=== PATIENT | female | born 1960 | race African-American/Black ===

== ENCOUNTER → 2020-10-04 11:06 | Outpatient (BNVA) | payer OTHER, SELFPAY | PROVIDERS: PCP Internal Medicine Medical Oncology; Visit Provider Hospitalist | DX: J45.909 Unspecified asthma, uncomplicated (principal); R06.00 Dyspnea, unspecified; R07.89 Other chest pain; G47.33 Obstructive sleep apnea (adult) (pediatric); Z79.899 Other long term (current) drug therapy; Z86.73 Personal history of transient ischemic attack (TIA), and cerebral infarction without residual deficits; Z99.89 Dependence on other enabling machines and devices | CPT/HCPCS: 99202 ==

== ENCOUNTER 2020-10-20 09:47 | Outpatient (REF) | payer OTHER, SELFPAY ==
--- NOTE | 2020-10-20 11:22 | XR_ITS ---
EXAMINATION: XR CHEST CLINICAL INFORMATION: Asthma COMPARISON: None TECHNIQUE: 2 views of the chest were obtained. FINDINGS: The cardiac silhouette does not appear enlarged. The thoracic aorta is slightly tortuous. Hilar and mediastinal contours are otherwise unremarkable. The lungs are clear. There is no pleural effusion or pneumothorax. There are degenerative changes of the spine. XR/XR chest 2V IMPRESSION: No evidence for acute disease in the chest.
[2020-10-20 11:47] LABS: Hematocrit 36.3 % (37-47); Hemoglobin 11.5 g/dl (12.0-16.0); Mean Corpuscular HGB Conc 31.7 g/dl (31.0-35.0); Mean Corpuscular Hemoglobin 26.4 pg (27.0-33.0); Mean Corpuscular Volume 83.3 fL (80-98); Mean Platelet Volume 10.9 fL (9.4-12.3); Platelet Count 250 X10*3/uL (160-400); Red Blood Count 4.36 X10*6/uL (4.20-5.50); Red Cell Distribution Width 12.3 % (11.0-16.0); White Blood Count 6.3 X10*3/uL (4.8-10.8)
[2020-10-20 11:52] LABS: Prothrombin Time 11.5 SEC (10.8-13.0)
[2020-10-20 12:09] LABS: Anion Gap 13 (12-20); Blood Urea Nitrogen 16 mg/dL (9-16); Calcium 9.8 mg/dL (8.4-10.2); Carbon Dioxide 27 mmol/L (22-29); Chloride 104 mmol/L (96-108); Estimated Glomerular Filt Rate > 60; Glucose Random 104 mg/dL (60-115); Potassium 4.1 mmol/l (3.3-5.1); Sodium 140 mmol/L (135-145)
== END 2020-10-20 09:48 | disposition home or self-care (01) ==
LOC: HO.LAB 09:47
PROVIDERS: PCP Internal Medicine Medical Oncology; Visit Provider Internal Medicine Cardiovascular Disease
DX: R06.00 Dyspnea, unspecified (principal); J45.909 Unspecified asthma, uncomplicated
CPT/HCPCS: 36415; 71046; 80048; 85027; 85610; 93005; 99202

== ENCOUNTER → 2020-10-27 07:34 | Outpatient (REF) | payer OTHER, SELFPAY ==
--- NOTE | 2020-10-27 07:36 | CA_ITS ---
Transthoracic Echocardiogram Patient (Last, First, Middle): Lynnette Mcgill, Gender: Female Date of : 1960 Age: 59 Procedure Date: 10/27/2020 Procedure Type: Transthoracic Echocardiogram Location: OP Height: 165.1 cm Weight: 151.96 kg BSA: 2.46 m2 Heart Rate: bpm BP: 138 / 90 mmHg Director Stage: GLORIA Otto MD: Alcon Villalobos MD Symptoms: R06.00 - Dyspnea, unspecified Study Quality: Fair ECG Rhythm: Sinus Conclusions: - The left ventricular systolic function is normal. The visually estimated ejection fraction is between 60-65%. - Possible diastolic dysfunction. Based on slight diastolic mitral regurgitation, could have increased LA pressure but other data are not supportive. - There is mild calcification of the aortic valve. - There is mild dilatation of the ascending aorta measuring 4.00 cm. Findings Left Ventricle Normal left ventricular cavity size. There is mildly increased left ventricular wall thickness. The left ventricular systolic function is normal. The visually estimated ejection fraction is between 60-65%. There is no evidence of regional wall motion abnormalities. Diastolic function is indeterminate on the basis of available data. Possible diastolic dysfunction. Based on slight diastolic mitral regurgitation, could have increased LA pressure but other data are not supportive. Right Ventricle Normal right ventricular cavity size and systolic function. Atria The left atrium is normal in size. The right atrium is normal in size. Aortic Valve There is a normal trileaflet aortic valve. There is mild calcification of the aortic valve. There is no aortic valve stenosis. There is no aortic valve regurgitation. Mitral Valve The mitral valve appears normal. There is trace mitral valve regurgitation. There is no mitral valve stenosis. Pulmonic Valve The pulmonic valve was not well visualized. Tricuspid Valve Normal tricuspid valve structure. There is trace tricuspid valve regurgitation. The pulmonary artery systolic pressure is normal. Great Vessels The aortic arch is normal in size. There is mild dilatation of the ascending aorta measuring 4.00 cm. Venous The inferior vena cava is normal in size and collapses greater than 50% with inspiration. Pericardium/Pleural There is no evidence of pericardial effusion. Prior Study Comparison No prior study available for comparison. Measurements 2D Linear Measurements IVSd: 1.10 0.6-0.9/0.6-1.0 cm LVIDd: 4.21 3.9-5.3/4.2-5.9 cm LVIDd Index: 1.71 2.4-3.2/2.2-3.1 cm/m2 LVIDs: 2.68 2.0-3.6 cm LVPWd: 1.18 0.7-1.1 cm Ao Root: 3.10 2.1-3.5 cm LA Diam: 3.90 2.7-3.8/3.0-4.0 cm LAIDs Index: 1.59 1.5-2.3 cm/m2 LV Mass: 206.69 67-162/88-224 g LV Mass Index: 84.02 43-95/49-115 g/m2 LVOT Diam: 2.00 3.0+(-)1.3 cm 2D Systolic Function EF 4C: 63.30 >55% EF 2C: 62.30 >55% EF BiP: 63.00 >55% Mitral Valve MV Pk E: 1.08 MV PK A: 0.66 MV Decel Time: 153.00 E/A: 1.60 E'Lateral: 10.00 E'Medial: 8.05 E/E' Med: 13.40 E/E' Lat: 10.80 PHT: 45.00 MVA PHT: 4.89 Decel [place]: 7.07 Aortic Valve AoV Pk Jonas: 1.79 AoV Mn Jonas: 1.24 AoV VTI: 0.42 AoV Pk Grad: 13.00 Aov Mn Grad: 7.00 ROBIN Cont.VTI: 1.98 LVOT LVOT Pk Jonas: 1.10 LVOT Mn Jonas: 0.81 LVOT VTI: 0.27 LVOT Pk Grad: 5.00 LVOT Mn Grad: 3.00 LVOT Diam: 2.00 LVOT Area: 3.14 Diastolic Function MV Pk E: 1.08 MV Pk A: 0.66 E/A: 1.60 E'Medial: 8.05 E/E' Med: 13.40 E' Laterial: 10.00 E/E' Lat: 10.80 Tricuspid Valve TR Pk Jonas: 2.10 TR Pk Grad: 18.00 RA Press: 3.00 RVSP: 21.00 Great Vessels Aorta Ao Root-2D: 3.10 2.0-3.7 cm Ao Asc: 4.00 2.1-3.4 cm Ao Arch: 3.10 Updated in Other Vendor System with Status of Final Hossein Yañez MD electronically signed on 10/27/2020 8:38:42 AM with status of Final
== END ==
LOC: HO.CARD 07:34
PROVIDERS: PCP Internal Medicine Medical Oncology; Visit Provider Internal Medicine Cardiovascular Disease
DX: R06.00 Dyspnea, unspecified (principal)
CPT/HCPCS: 93306

== ENCOUNTER → 2020-11-08 09:45 | Outpatient (BNVA) | payer OTHER, SELFPAY | PROVIDERS: PCP Internal Medicine Medical Oncology; Visit Provider Internal Medicine Cardiovascular Disease | DX: G47.33 Obstructive sleep apnea (adult) (pediatric) (principal); I10 Essential (primary) hypertension; Z99.89 Dependence on other enabling machines and devices; R06.00 Dyspnea, unspecified; R07.89 Other chest pain | CPT/HCPCS: 99212 ==

== ENCOUNTER 2020-11-19 09:47 | Outpatient (REF) | payer OTHER, SELFPAY ==
--- NOTE | 2020-11-19 13:08 | PFT_ITS ---
FLOWS: FEV1 of 97% of predicted at 1.83 L. FVC 96% of predicted at 2.30 L. FEV1 to FVC ratio of 0.80. Positive bronchodilator response. LUNG VOLUMES: Total lung capacity 106% of predicted at 4.71 L. Residual volume 143% of predicted at 2.46 L. Slow vital capacity 70% of predicted at 2.24 L. Expiratory reserve volume 23% of predicted at 0.22 L. Diffusion capacity is normal. IMPRESSION: No obstructive or restrictive ventilatory defect. Positive bronchodilator response. Increased residual volume suggests air trapping. Decreased expiratory reserve volume suggests extrathoracic restriction likely secondary to abdominal obesity. MD SYLVAIN Loya/MODL / [id number]
== END 2020-11-19 09:48 | disposition home or self-care (01) ==
LOC: HO.RESP 09:47
PROVIDERS: Visit Provider Hospitalist
DX: J45.909 Unspecified asthma, uncomplicated (principal); R06.00 Dyspnea, unspecified
CPT/HCPCS: 94060; 94727; 94729; 99212

== ENCOUNTER → 2020-11-22 09:49 | Outpatient (BNVA) | payer OTHER, SELFPAY | PROVIDERS: PCP Internal Medicine Medical Oncology; Visit Provider Nurse Practitioner Family | DX: I10 Essential (primary) hypertension (principal); R07.89 Other chest pain; G47.33 Obstructive sleep apnea (adult) (pediatric); Z99.89 Dependence on other enabling machines and devices; R06.00 Dyspnea, unspecified | CPT/HCPCS: 99212 ==

== ENCOUNTER 2020-12-17 10:27 | Outpatient (REF) | payer OTHER, SELFPAY | END 2020-12-17 10:28 | disposition home or self-care (01) | LOC: HO.LAB 10:27 | PROVIDERS: Visit Provider Internal Medicine | DX: Z20.822 Contact with and (suspected) exposure to COVID-19 (principal) | CPT/HCPCS: 36415; C9803; U0003; U0005 ==

== ENCOUNTER → 2020-12-27 10:23 | Outpatient (BNVA) | payer OTHER, SELFPAY | PROVIDERS: PCP Internal Medicine Medical Oncology; Visit Provider Nurse Practitioner Family | DX: R07.89 Other chest pain (principal); R06.00 Dyspnea, unspecified; I10 Essential (primary) hypertension; G47.33 Obstructive sleep apnea (adult) (pediatric); Z99.89 Dependence on other enabling machines and devices; Z79.899 Other long term (current) drug therapy; Z79.51 Long term (current) use of inhaled steroids; Z87.891 Personal history of nicotine dependence | CPT/HCPCS: 99212 ==

== ENCOUNTER 2020-12-30 09:15 | Outpatient (REF) | payer OTHER, SELFPAY ==
--- NOTE | ~2020-12-30 | US_ITS ---
EXAMINATION: US RETROPERITONEAL LIMITED (RENAL ONLY) CLINICAL INFORMATION: Essential hypertension. COMPARISON: None TECHNIQUE: Routine grayscale and Doppler imaging of kidneys was performed. FINDINGS: RIGHT KIDNEY: 11.4 x 5.1 x 5.2 cm (SAG x AP x TRV). The kidney is normal in size, contour, and echogenicity. Renal cortical thickness is normal. No calculi or focal parenchymal lesions. No hydronephrosis. LEFT KIDNEY: 10.0 x 5.6 x 5.0 cm (SAG x AP x TRV). The kidney is normal in size, contour, and echogenicity. Renal cortical thickness is normal. No calculi or focal parenchymal lesions. No hydronephrosis. RENAL DOPPLER EXAM Right kidney: Peak systolic velocity proximal renal artery measures 108 cm/s, midsegment measures 126 cm/s, distal segment measures 92 cm/s. Average resistive index is 0.6. Renal-aortic ratio measures 1.6. Peak systolic velocity in mid abdominal aorta is 81 cm/s. Left kidney: Peak systolic velocity proximal renal artery measures 94 cm/s, midsegment measures 149 cm/s, distal segment measures 84 cm/s. Average resistive index is 0.63. Renal-aortic ratio measures 1.8. US/US renal BI IMPRESSION: Normal renal ultrasound. No echogenic stones or hydronephrosis. Normal renal Doppler exam. No evidence of renal artery stenosis.
--- NOTE | ~2020-12-30 | US_ITS ---
EXAMINATION: US RETROPERITONEAL LIMITED (RENAL ONLY) CLINICAL INFORMATION: Essential hypertension. COMPARISON: None TECHNIQUE: Routine grayscale and Doppler imaging of kidneys was performed. FINDINGS: RIGHT KIDNEY: 11.4 x 5.1 x 5.2 cm (SAG x AP x TRV). The kidney is normal in size, contour, and echogenicity. Renal cortical thickness is normal. No calculi or focal parenchymal lesions. No hydronephrosis. LEFT KIDNEY: 10.0 x 5.6 x 5.0 cm (SAG x AP x TRV). The kidney is normal in size, contour, and echogenicity. Renal cortical thickness is normal. No calculi or focal parenchymal lesions. No hydronephrosis. RENAL DOPPLER EXAM Right kidney: Peak systolic velocity proximal renal artery measures 108 cm/s, midsegment measures 126 cm/s, distal segment measures 92 cm/s. Average resistive index is 0.6. Renal-aortic ratio measures 1.6. Peak systolic velocity in mid abdominal aorta is 81 cm/s. Left kidney: Peak systolic velocity proximal renal artery measures 94 cm/s, midsegment measures 149 cm/s, distal segment measures 84 cm/s. Average resistive index is 0.63. Renal-aortic ratio measures 1.8. US/US renal doppler IMPRESSION: Normal renal ultrasound. No echogenic stones or hydronephrosis. Normal renal Doppler exam. No evidence of renal artery stenosis.
== END 2020-12-30 09:16 | disposition home or self-care (01) ==
LOC: HO.US 09:15
PROVIDERS: PCP Internal Medicine Medical Oncology; Visit Provider Nurse Practitioner Family
DX: I10 Essential (primary) hypertension (principal)
CPT/HCPCS: 76775; 93975

== ENCOUNTER 2021-01-14 10:56 | Outpatient (REF) | payer OTHER, SELFPAY ==
--- NOTE | ~2021-01-14 | XR_ITS ---
EXAMINATION: XR CHEST CLINICAL INFORMATION: Dyspnea COMPARISON: 10/20/2020 TECHNIQUE: 2 views of the chest were obtained. FINDINGS: The lungs are well expanded. There is no focal consolidation, edema, or effusion. No pneumothorax. The cardiomediastinal silhouette is within normal limits of size with a tortuous aorta. No acute osseous abnormality. XR/XR chest 2V IMPRESSION: Clear lungs.
--- NOTE | ~2021-01-14 | XR_ITS ---
EXAMINATION: XR HIP, LEFT CLINICAL INFORMATION: Left hip pain COMPARISON: None TECHNIQUE: Two views of the left hip. FINDINGS: No fracture or dislocation. The left femoral head articulates appropriately with its acetabulum. Mild joint space narrowing. The visualized left hemipelvis is intact. The bowel gas pattern is unremarkable. XR/XR hip LT min 2V IMPRESSION: Mild degenerative change of the left hip.
== END 2021-01-14 10:57 | disposition home or self-care (01) ==
LOC: HO.XRAY 10:56
PROVIDERS: Absent Provider Internal Medicine Medical Oncology; PCP Internal Medicine Medical Oncology; Visit Provider Hospitalist
DX: M25.552 Pain in left hip (principal); R06.00 Dyspnea, unspecified
CPT/HCPCS: 71046; 73502

== ENCOUNTER 2021-01-20 11:18 | Outpatient (REF) | payer OTHER, SELFPAY ==
--- NOTE | ~2021-01-20 | XR_ITS ---
Examination: XR shoulder RT min 2V, XR lumbar spine 2-3V, XR hip LT min 2V, XR shoulder LT min 2V Indication: PAIN Comparison: 01/14/2021 left hip films Technique: 4 views the right shoulder, 4 views the left shoulder, 2 views of the left hip and 3 views of the lumbar spine Findings: Right shoulder: Humeral head is well-seated within the glenoid fossa. I do not appreciate any acute fracture or dislocation. Mild hypertrophic degenerative changes in the acromioclavicular joint. Visualized right chest unremarkable. Left shoulder humeral head is well-seated in the glenoid fossa. Bones are normal anatomic alignment with no acute fracture or dislocation minimal degenerative changes in the acromioclavicular joint. Visualized left upper chest unremarkable. Left hip: Femoral head is well-seated within the acetabulum. Bones are normal anatomic alignment. I do not appreciate any acute fracture or dislocation. Minimal degenerative changes again seen. Visualized pelvic bones unremarkable. Bowel gas pattern unremarkable. Lumbosacral spine: Bones are in normal anatomic alignment with no acute fracture or spondylolisthesis. Vertebral body heights and disc heights are preserved. Mild multilevel degenerative changes with anterior osteophyte formation noted. Sclerotic degenerative changes in the posterior elements of the lower lumbar spine. Bowel gas pattern unremarkable. XR/XR hip LT min 2V Impression: Degenerative changes but no acute bony abnormalities.
--- NOTE | ~2021-01-20 | XR_ITS ---
Examination: XR shoulder RT min 2V, XR lumbar spine 2-3V, XR hip LT min 2V, XR shoulder LT min 2V Indication: PAIN Comparison: 01/14/2021 left hip films Technique: 4 views the right shoulder, 4 views the left shoulder, 2 views of the left hip and 3 views of the lumbar spine Findings: Right shoulder: Humeral head is well-seated within the glenoid fossa. I do not appreciate any acute fracture or dislocation. Mild hypertrophic degenerative changes in the acromioclavicular joint. Visualized right chest unremarkable. Left shoulder humeral head is well-seated in the glenoid fossa. Bones are normal anatomic alignment with no acute fracture or dislocation minimal degenerative changes in the acromioclavicular joint. Visualized left upper chest unremarkable. Left hip: Femoral head is well-seated within the acetabulum. Bones are normal anatomic alignment. I do not appreciate any acute fracture or dislocation. Minimal degenerative changes again seen. Visualized pelvic bones unremarkable. Bowel gas pattern unremarkable. Lumbosacral spine: Bones are in normal anatomic alignment with no acute fracture or spondylolisthesis. Vertebral body heights and disc heights are preserved. Mild multilevel degenerative changes with anterior osteophyte formation noted. Sclerotic degenerative changes in the posterior elements of the lower lumbar spine. Bowel gas pattern unremarkable. XR/XR lumbar spine 2-3V Impression: Degenerative changes but no acute bony abnormalities.
--- NOTE | ~2021-01-20 | XR_ITS ---
Examination: XR shoulder RT min 2V, XR lumbar spine 2-3V, XR hip LT min 2V, XR shoulder LT min 2V Indication: PAIN Comparison: 01/14/2021 left hip films Technique: 4 views the right shoulder, 4 views the left shoulder, 2 views of the left hip and 3 views of the lumbar spine Findings: Right shoulder: Humeral head is well-seated within the glenoid fossa. I do not appreciate any acute fracture or dislocation. Mild hypertrophic degenerative changes in the acromioclavicular joint. Visualized right chest unremarkable. Left shoulder humeral head is well-seated in the glenoid fossa. Bones are normal anatomic alignment with no acute fracture or dislocation minimal degenerative changes in the acromioclavicular joint. Visualized left upper chest unremarkable. Left hip: Femoral head is well-seated within the acetabulum. Bones are normal anatomic alignment. I do not appreciate any acute fracture or dislocation. Minimal degenerative changes again seen. Visualized pelvic bones unremarkable. Bowel gas pattern unremarkable. Lumbosacral spine: Bones are in normal anatomic alignment with no acute fracture or spondylolisthesis. Vertebral body heights and disc heights are preserved. Mild multilevel degenerative changes with anterior osteophyte formation noted. Sclerotic degenerative changes in the posterior elements of the lower lumbar spine. Bowel gas pattern unremarkable. XR/XR shoulder LT min 2V Impression: Degenerative changes but no acute bony abnormalities.
--- NOTE | ~2021-01-20 | XR_ITS ---
Examination: XR shoulder RT min 2V, XR lumbar spine 2-3V, XR hip LT min 2V, XR shoulder LT min 2V Indication: PAIN Comparison: 01/14/2021 left hip films Technique: 4 views the right shoulder, 4 views the left shoulder, 2 views of the left hip and 3 views of the lumbar spine Findings: Right shoulder: Humeral head is well-seated within the glenoid fossa. I do not appreciate any acute fracture or dislocation. Mild hypertrophic degenerative changes in the acromioclavicular joint. Visualized right chest unremarkable. Left shoulder humeral head is well-seated in the glenoid fossa. Bones are normal anatomic alignment with no acute fracture or dislocation minimal degenerative changes in the acromioclavicular joint. Visualized left upper chest unremarkable. Left hip: Femoral head is well-seated within the acetabulum. Bones are normal anatomic alignment. I do not appreciate any acute fracture or dislocation. Minimal degenerative changes again seen. Visualized pelvic bones unremarkable. Bowel gas pattern unremarkable. Lumbosacral spine: Bones are in normal anatomic alignment with no acute fracture or spondylolisthesis. Vertebral body heights and disc heights are preserved. Mild multilevel degenerative changes with anterior osteophyte formation noted. Sclerotic degenerative changes in the posterior elements of the lower lumbar spine. Bowel gas pattern unremarkable. XR/XR shoulder RT min 2V Impression: Degenerative changes but no acute bony abnormalities.
== END 2021-01-20 11:19 | disposition home or self-care (01) ==
LOC: HO.XRAY 11:18
PROVIDERS: PCP Internal Medicine Medical Oncology; Visit Provider Internal Medicine Medical Oncology
DX: M25.552 Pain in left hip (principal); M25.551 Pain in right hip; M25.511 Pain in right shoulder; M25.512 Pain in left shoulder
CPT/HCPCS: 72100; 73030; 73502

== ENCOUNTER → 2021-02-21 13:34 | Outpatient (BNVA) | payer OTHER, SELFPAY | PROVIDERS: PCP Internal Medicine Medical Oncology; Visit Provider Hospitalist | DX: G47.33 Obstructive sleep apnea (adult) (pediatric) (principal); J45.40 Moderate persistent asthma, uncomplicated; B94.8 Sequelae of other specified infectious and parasitic diseases; Z99.89 Dependence on other enabling machines and devices | CPT/HCPCS: 99212 ==

== ENCOUNTER 2021-03-14 09:39 | Outpatient (REF) | payer OTHER, SELFPAY ==
--- NOTE | 2021-03-14 17:44 | PFT_ITS ---
INDICATIONS: Dyspnea, history of asthma. SPIROMETRY: The FEV1 to FVC of 81% with an FEV1 of 2.03 L, which is 108% predicted, and an FVC of 2.49 L, which is 104% predicted. There was a significant response to bronchodilators noted. Maximum voluntary ventilation 81% predicted. LUNG VOLUMES: Total lung capacity 94% predicted with an expiratory reserve volume of 16% predicted secondary to an elevated BMI. DIFFUSION CAPACITY: DLCO predicted. COMPARISONS: From November 2020. INTERPRETATION: No obstructive nor restrictive ventilatory defects identified. There was a significant response to bronchodilators noted. Normal maximum voluntary ventilation. Lung volumes within normal limits except for decrease in the expiratory reserve volume secondary to an elevated BMI. Diffusion capacity is low normal. When compared to 11/20/2020, there is a significant improvement of the FVC, significant improvement of the FEV1, trend decrease in the total lung capacity, and no significant change in the diffusion capacity. Clinical correlation warranted. MD RADHA Mendoza/MODL / [id number]
== END 2021-03-14 09:40 | disposition home or self-care (01) ==
LOC: HO.RESP 09:39
PROVIDERS: PCP Internal Medicine Medical Oncology; Visit Provider Hospitalist
DX: B94.8 Sequelae of other specified infectious and parasitic diseases (principal)
CPT/HCPCS: 94060; 94727; 94729

== ENCOUNTER → 2021-03-29 10:19 | Outpatient (BNVA) | payer OTHER, SELFPAY | PROVIDERS: PCP Internal Medicine Medical Oncology; Visit Provider Hospitalist | DX: J04.0 Acute laryngitis (principal); J45.40 Moderate persistent asthma, uncomplicated; G47.33 Obstructive sleep apnea (adult) (pediatric); R06.00 Dyspnea, unspecified; Z99.89 Dependence on other enabling machines and devices | CPT/HCPCS: 99212 ==

== ENCOUNTER → 2021-04-18 13:04 | Outpatient (BNVA) | payer OTHER, SELFPAY | PROVIDERS: PCP Internal Medicine Medical Oncology; Referring Provider Internal Medicine Medical Oncology; Visit Provider Internal Medicine Cardiovascular Disease | DX: I10 Essential (primary) hypertension (principal); R06.00 Dyspnea, unspecified | CPT/HCPCS: 99212 ==

== ENCOUNTER → 2021-04-26 09:27 | Outpatient (BNVA) | payer OTHER, SELFPAY | PROVIDERS: PCP Internal Medicine Medical Oncology; Visit Provider Nurse Practitioner Family | DX: M54.16 Radiculopathy, lumbar region (principal); M47.22 Other spondylosis with radiculopathy, cervical region; B94.8 Sequelae of other specified infectious and parasitic diseases | CPT/HCPCS: 99212 ==

== ENCOUNTER → 2021-06-01 08:58 | Outpatient (BNVA) | payer OTHER, SELFPAY | PROVIDERS: PCP Internal Medicine Medical Oncology; Visit Provider Nurse Practitioner Family | DX: M54.16 Radiculopathy, lumbar region (principal); M47.22 Other spondylosis with radiculopathy, cervical region; B94.8 Sequelae of other specified infectious and parasitic diseases | CPT/HCPCS: 99212 ==

== ENCOUNTER → 2021-06-02 09:43 | Outpatient (BNVA) | payer OTHER, SELFPAY | PROVIDERS: PCP Internal Medicine Medical Oncology; Visit Provider Internal Medicine Cardiovascular Disease | DX: Z01.810 Encounter for preprocedural cardiovascular examination (principal); I10 Essential (primary) hypertension | CPT/HCPCS: 93005; 99212 ==

== ENCOUNTER 2021-07-19 06:39 | Outpatient (REF) | payer OTHER, SELFPAY ==
--- NOTE | ~2021-07-19 | FL_ITS ---
EXAMINATION: XR FLUOROSCOPY WITH IMAGES CLINICAL INFORMATION: M54.16 - Radiculopathy, lumbar region COMPARISON: Radiographs lumbar spine 01/20/2021 TECHNIQUE: Fluoroscopy performed by Dr. Joe Christianson. Fluoroscopy time: 0.8 minutes DAP: 19.2 Gycm2 Images: 2 FINDINGS: There are spinal needles overlying the bilateral outer L5 neural foramen. There is contrast seen in the respective nerve sheaths. Some early transforaminal epidural extension is suggested. No visible vascular communication. FL/FL guidance in treatment room IMPRESSION: Fluoroscopy for pain management procedures.
== END 2021-07-19 06:40 | disposition home or self-care (01) ==
LOC: HO.RADIR 06:39
PROVIDERS: Visit Provider Anesthesiology
DX: M47.22 Other spondylosis with radiculopathy, cervical region (principal); B94.8 Sequelae of other specified infectious and parasitic diseases
CPT/HCPCS: 64483; 64493; J3300; Q9967

== ENCOUNTER → 2021-08-03 10:38 | Outpatient (BNVA) | payer OTHER, SELFPAY | PROVIDERS: PCP Internal Medicine Medical Oncology; Visit Provider Hospitalist | DX: G47.33 Obstructive sleep apnea (adult) (pediatric) (principal); J45.40 Moderate persistent asthma, uncomplicated; R06.00 Dyspnea, unspecified; Z99.89 Dependence on other enabling machines and devices | CPT/HCPCS: 99212 ==

== ENCOUNTER → 2021-08-16 08:51 | Outpatient (BNVA) | payer OTHER, SELFPAY | PROVIDERS: PCP Internal Medicine Medical Oncology; Visit Provider Nurse Practitioner Family | DX: M54.16 Radiculopathy, lumbar region (principal); M47.22 Other spondylosis with radiculopathy, cervical region; M47.816 Spondylosis without myelopathy or radiculopathy, lumbar region; B94.8 Sequelae of other specified infectious and parasitic diseases | CPT/HCPCS: 99212 ==

== ENCOUNTER → 2021-10-24 13:22 | Outpatient (BNVA) | payer OTHER, SELFPAY | PROVIDERS: PCP Internal Medicine Medical Oncology; Visit Provider Internal Medicine Cardiovascular Disease | DX: I10 Essential (primary) hypertension (principal) | CPT/HCPCS: 99212 ==

== ENCOUNTER → 2022-01-02 09:28 | Outpatient (BNVA) | payer OTHER, SELFPAY | PROVIDERS: PCP Internal Medicine Medical Oncology; Visit Provider Internal Medicine | DX: M47.816 Spondylosis without myelopathy or radiculopathy, lumbar region (principal); M54.16 Radiculopathy, lumbar region | CPT/HCPCS: 99212 ==

== ENCOUNTER → 2022-01-23 15:01 | Outpatient (BNVA) | payer OTHER, SELFPAY | PROVIDERS: PCP Internal Medicine Medical Oncology; Referring Provider Internal Medicine Medical Oncology; Visit Provider Internal Medicine Cardiovascular Disease | DX: I10 Essential (primary) hypertension (principal); Z98.84 Bariatric surgery status | CPT/HCPCS: 99212 ==

== ENCOUNTER → 2022-01-31 09:44 | Outpatient (BNVA) | payer OTHER, SELFPAY | PROVIDERS: PCP Internal Medicine Medical Oncology; Visit Provider Hospitalist | DX: J45.40 Moderate persistent asthma, uncomplicated (principal); G47.33 Obstructive sleep apnea (adult) (pediatric); R06.00 Dyspnea, unspecified; Z99.89 Dependence on other enabling machines and devices | CPT/HCPCS: 99212 ==

== ENCOUNTER → 2022-05-29 10:15 | Outpatient (BNVA) | payer OTHER, SELFPAY | PROVIDERS: PCP Internal Medicine Medical Oncology; Referring Provider Internal Medicine Medical Oncology; Visit Provider Internal Medicine Cardiovascular Disease | DX: G45.9 Transient cerebral ischemic attack, unspecified (principal); I10 Essential (primary) hypertension | CPT/HCPCS: 93005; 99212 ==

== ENCOUNTER 2022-05-31 09:31 | Outpatient (REF) | payer OTHER, SELFPAY ==
--- NOTE | ~2022-05-31 | US_ITS ---
EXAMINATION: US EXTRACRANIAL CAROTID DUPLEX, BILATERAL CLINICAL INFORMATION: This is a 61-year-old female with history of TIA. CVA. Previous tobacco use. Hypertension. Carotid artery disease. COMPARISON: None TECHNIQUE: Real-time ultrasound and Doppler techniques (integrating B-mode 2-D vascular images, Doppler spectral analysis and color-flow Doppler imaging) were utilized to interrogate the extracranial carotid arteries, the vertebral arteries and proximal subclavian arteries bilaterally. The degree of stenosis is determined by criteria similar to NASCET. FINDINGS: Right Side: 1. There is minimal atherosclerotic plaque seen in the bifurcation/proximal ICA region. 2. The common carotid artery PSV proximally is 61 cm/s and distally 49 cm/s. 3. The proximal internal carotid artery velocities are 86 cm/s systolic and 37 cm/s diastolic. 4. The proximal external carotid artery PSV is 44 cm/s. 5. The vertebral artery shows antegrade flow. 6. The subclavian artery waveforms are normal. Left Side: 1. There is minimal atherosclerotic plaque seen in the bifurcation/proximal ICA region. 2. The common carotid artery PSV proximally is 84 cm/s and distally 56 cm/s. 3. The proximal internal carotid artery velocities are 63 cm/s systolic and 20 cm/s diastolic. 4. The proximal external carotid artery PSV is 54 cm/s. 5. The vertebral artery shows antegrade flow. 6. The subclavian artery waveforms are normal. US/US carotid duplex BI IMPRESSION: 1. RIGHT: Minimal, non-hemodynamically significant stenosis of the proximal right internal carotid artery corresponding to a 0-49% stenosis by velocity criteria. 2. LEFT: Minimal, non-hemodynamically significant stenosis of the proximal left internal carotid artery corresponding to a 0-49% stenosis by velocity criteria.
== END 2022-05-31 09:32 | disposition home or self-care (01) ==
LOC: HO.US 09:31
PROVIDERS: Visit Provider Internal Medicine Cardiovascular Disease
DX: Z86.73 Personal history of transient ischemic attack (TIA), and cerebral infarction without residual deficits (principal)
CPT/HCPCS: 93880

== ENCOUNTER → 2022-10-19 10:40 | Outpatient (BNVA) | payer OTHER, SELFPAY | PROVIDERS: PCP Internal Medicine Medical Oncology; Referring Provider Internal Medicine Medical Oncology; Visit Provider Internal Medicine Cardiovascular Disease | DX: G45.9 Transient cerebral ischemic attack, unspecified (principal); M75.00 Adhesive capsulitis of unspecified shoulder; I10 Essential (primary) hypertension | CPT/HCPCS: 99212 ==

== ENCOUNTER → 2022-11-17 09:59 | Outpatient (BNVA) | payer OTHER, SELFPAY | PROVIDERS: PCP Internal Medicine Medical Oncology; Visit Provider Hospitalist | DX: J45.40 Moderate persistent asthma, uncomplicated (principal); J01.90 Acute sinusitis, unspecified; G47.33 Obstructive sleep apnea (adult) (pediatric); Z99.89 Dependence on other enabling machines and devices | CPT/HCPCS: 99212 ==

== ENCOUNTER 2023-04-23 10:32 | Outpatient (AMB) | payer MEDICAID, SELFPAY ==
[2023-04-23 10:51] VITALS: BP 146/98; PULSE 61; BMI 46.2
--- NOTE | 2023-04-23 10:51 | MHC.OFFVIS ---
Intake Vital Signs 04/23/23 10:51 Height 5 ft 5 in Weight 277 lb 12.519 oz BMI 46.2 BP 146/98 H Blood Pressure Location Lt brachial Position Sitting Pulse 61 Intake Visit Reasons: 6M follow up Intake Note: 6 month follow up Fiscal Technician Required: No Accompanied by: Self / Same As Patient Allergies No Known Allergies Allergy (Verified 04/23/23 10:53) Medication List - Last Reconciled 04/23/23 by Alcon Villalobos MD albuterol sulfate 2.5 mg (3 mL) inhalation Q4H PRN 30 days amlodipine 10 mg PO DAILY aspirin (Adult Aspirin Regimen) 81 mg PO DAILY azelastine 2 sprays intranasal BID 30 days azithromycin 500 mg PO DAILY 5 days bupropion HCl 300 mg PO DAILY cholecalciferol (vitamin D3) 50 mcg PO DAILY clopidogrel 75 mg PO DAILY escitalopram oxalate 20 mg PO DAILY fluticasone furoate-vilanterol 200-25 mcg/dose (Breo Ellipta) 1 inh inhalation DAILY 30 days fluticasone furoate-vilanterol 200-25 mcg/dose (Breo Ellipta) 1 inh inhalation DAILY 30 days fluticasone propionate 50 mcg/actuation 2 sprays intranasal DAILY 30 days hydralazine 50 mg PO QID hydroxyzine HCl 50 mg PO TID lisinopril 40 mg PO DAILY loratadine 10 mg PO DAILY 30 days meloxicam 15 mg PO DAILY metoprolol tartrate 50 mg PO BID montelukast 10 mg PO DAILY 30 days nebulizers As directed omeprazole magnesium 20 mg PO DAILY oxymetazoline 0.05% (Afrin Sinus (oxymetazoline)) 2 sprays intranasal Q12H PRN 5 days potassium chloride ER 10 mEq PO DAILY prednisone PO daily; Take 2 tabs x 5 days, then 1 tab x 5 days 10 days pregabalin 50 mg PO BID simvastatin 40 mg PO BEDTIME trazodone 100 - 200 mg PO BEDTIME PRN umeclidinium 62.5 mcg/actuation (Incruse Ellipta) 1 inh inhalation DAILY 30 days umeclidinium 62.5 mcg/actuation (Incruse Ellipta) 1 inh inhalation DAILY 30 days HPI HPI Comments History of Present Illness Details 62-year-old female here for follow-up. She was seen for hypertension previously and her blood pressure has improved on the current medication regimen. She also had exertional chest discomfort for which she underwent cardiac catheterization which did not show any significant coronary artery disease. She has morbid obesity and underwent bariatric surgery. She has lost approximately 90+ lb at this point. She is here for follow-up. She is denying any chest discomfort shortness of breath. Her main complaint is left shoulder pain. 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 She is saying she underwent physiotherapy but there has not been any significant improvement in the shoulder. Blood pressure control is good. Taking medications regularly. 04/23/23: Today she returns for follow-up. She is status post bariatric surgery and continues to lose weight. She has no chest discomfort shortness of breath. She is saying her asthma is under control. She has been experiencing some episodes of dizziness which she describes as lightheadedness. These episodes happen when she is standing or sitting for long time. She feels hot and flushed and starts feeling lightheaded. She is saying she drinks lot of water and tries to hydrate herself. She has never had vasovagal syncope or fainting episodes before. 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 Surgical History History of gastric bypass History of hysterectomy History of left knee surgery Family History Mother Breast cancer HTN (hypertension) Father Kidney disease HTN (hypertension) Maternal Uncle Diabetes Son Diabetes Social History Alcohol intake: never Patient Tobacco Use Status: Never used Tobacco Review of Systems Const Denies weakness ENT Denies dizziness Card Denies chest pain, Denies chest pain with activity, Denies syncope, Denies rapid heart rate, Denies pedal edema, Denies edema, Denies leg edema, Denies lightheadedness, Denies palpitations, Denies dyspnea, Denies dyspnea on exertion and Denies orthopnea Resp Denies cough, Denies dyspnea and Denies dyspnea on exertion GI Denies hematochezia and Denies change in stool character Musc Denies abnormal gait, Denies muscle cramps, Denies muscle weakness, Denies numbness, Denies radiating pain into limb and Denies tingling Neuro Denies abnormal gait, Denies dizziness, Denies syncope, Denies numbness, Denies tingling and Denies weakness Endo Denies palpitations Physical Exam Vital Signs: Last Vital Signs Pulse 61 04/23/23 10:51 BP 146/98 H 04/23/23 10:51 BMI result Body Mass Index 46.2 GENERAL APPEARANCE: in no acute distress, obese. NECK/THYROID: no carotid bruit, no jugular venous distention. SKIN: no suspicious lesions, warm and dry. HEART: no murmurs, regular rate and rhythm, S1, S2 normal. LUNGS: clear to auscultation bilaterally. ABDOMEN: normal, bowel sounds present, soft, nontender, nondistended. EXTREMITIES: no clubbing, cyanosis. PERIPHERAL PULSES: equal. NEUROLOGIC: alert and oriented. Office Procedures EKG Details: Sinus rhythm 61 beats per minute, normal axis, QTC 432 milliseconds. [id number], Complete Assessment & Plan Assessment & Plan (1) Hypertension: Code(s): I10 - Essential (primary) hypertension (2) Dizziness: Code(s): R42 - Dizziness and giddiness Plan Pleasant 62-year-old female who is here for follow-up. She has background history of morbid obesity underwent bariatric surgery. She has background of TIA and has been on aspirin and Plavix. She also has elevated blood pressures previously. Blood pressure is again elevated but she is complaining of dizziness and lightheadedness episodes associated with feeling hot and flushed. Clinical symptoms appear to be related to vasovagal events. I have advised her to drink Gatorade/Powerade 2 times a week. She will continue to hydrate herself. I am reluctant to increase the blood pressure medications currently. We will see her back and reassess her and titrate medications accordingly. She is saying she is still losing weight and hopefully with further weight loss blood pressure will improve further. She will see us back in few months. Thank you for allowing me to participate in the care of your patient. Please feel free to contact me if you have any questions. Coding Level of Care Code Est Pt Level 4 (90755) Diagnoses Hypertension I10 Dizziness R42 CPT Codes EKG - CPT: [id number], Complete ([id number])
== END 2023-04-23 11:16 | disposition home or self-care (01) ==
PROVIDERS: Visit Provider Internal Medicine Cardiovascular Disease
DX: I10 Essential (primary) hypertension (principal); R42 Dizziness and giddiness
CPT/HCPCS: 93010; 99214

== ENCOUNTER → 2023-04-23 10:32 | Outpatient (BNVA) | payer MEDICAID, SELFPAY | PROVIDERS: Visit Provider Internal Medicine Cardiovascular Disease | DX: I10 Essential (primary) hypertension (principal); R42 Dizziness and giddiness | CPT/HCPCS: 93005; 99212 ==

== ENCOUNTER 2023-06-22 09:38 | Outpatient (REF) | payer OTHER, SELFPAY ==
--- NOTE | ~2023-06-22 | XR_ITS ---
EXAMINATION: XR HIP, RIGHT CLINICAL INFORMATION: Pain COMPARISON: Hip radiographs 01/20/2021 TECHNIQUE: Two views of the right hip. One view of the pelvis. FINDINGS: No acute fracture or dislocation. Mild degenerative changes of the hips with subchondral sclerosis and cystic change. Degenerative disc disease in the visualized lower lumbosacral spine. Sacroiliac joint spaces are maintained. Calcified phleboliths in the pelvis. XR/XR hip RT w PEL1V IMPRESSION: 1. Mild degenerative changes of the hips. 2. Degenerative disc disease in the visualized lower lumbosacral spine.
== END 2023-06-22 09:39 | disposition home or self-care (01) ==
LOC: HO.XRAY 09:38
PROVIDERS: PCP Internal Medicine Medical Oncology; Visit Provider Physician Assistant
DX: M25.551 Pain in right hip (principal)
CPT/HCPCS: 73502

== ENCOUNTER 2023-07-13 08:49 | Outpatient (AMB) | payer OTHER, SELFPAY ==
--- NOTE | 2023-07-13 09:02 | A.OFFVIS_ITS ---
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 Recently she developed left-sided weakness and numbness and she was evaluated at [facility]. She was so she had a small CVA. She is now trying to control her blood pressure and also lose weight. In the meantime she does complaint of dyspnea on exertion also with chest heaviness. [id number] severity. It does take her between 3-5 minutes to recover from her ambulation. She has been using Breo for asthma with good effect. She also has a rescue inhaler that she uses at times but less than twice a week. In addition to that she does use her CPAP every night. CPAP therapy continues to be affecting beneficial. She feels the pressures are too long rather have the elevations in the pressures. I did request axis from her [email or web address] to get access in order to adjust the machine online. In the office we did have her go for 6 minutes walk test. She did not desaturate heart rate went up to 102. During the ambulation she did complaint of chest heaviness and therefore had to stop. Her symptoms resolved after stopping. I did inform her that I did think cardiology consultation be warranted at this time specially with her recent CVA in her increase cardiovascular risk factors. Were also optimize respiratory therapy and also try to optimize her PAP therapy. 07/13/2023 the patient is here for pulnathaniel hernandez follow-up visit. Overall she is doing well. She is losing weight and she is motivated. In addition to that she has gotten relief from her Breo inhaler. She has not require her short-acting beta agonist. We did review her pulmonary function studies demonstrating normal lung capacity and normal lung mechanics. Does have a component of small airways disease which is likely from the asthma. Regards to the CPAP the CPAP therapy continues to be affecting beneficial. She continues using more than 4 hours a night. Her major complaint is chronic cough and some constant clearing of the throat which she feels that she has fullness in secretions. Explained to her that is likely from an upper airway cough syndrome in nasal congestion. We will optimize her nasal therapy. If however the patient has no improvement then an ENT evaluation. [facility] Medical History (Updated 07/13/23 @ 09:22 by Josh Lee MD) Chronic allergic rhinitis Laryngitis [id number] syndrome CVA (cerebral vascular accident) DEIM on CPAP Dyspnea Chest pressure Asthma Surgical History History of gastric bypass History of left knee surgery History of hysterectomy Family History Mother Breast cancer HTN (hypertension) Father Kidney disease HTN (hypertension) Maternal Uncle Diabetes Son Diabetes Social History Alcohol intake: never Patient Tobacco Use Status: Never used Tobacco Review of Systems Const Reports fatigue, Denies fever(s), Denies night sweats and Reports weight loss ENT Denies change in voice, Denies lip swelling, Denies mouth pain, Reports nasal congestion, Reports nasal discharge, Reports nasal obstruction, Reports sinus pain, Reports sinus pressure and Denies tongue swelling Card Denies chest pain and Reports dyspnea on exertion Resp Reports cough and Reports dyspnea on exertion GI Denies abdominal pain Musc Denies no additional complaints Neuro Denies Neuro-related abnormal movements Psych Denies no additional complaints Endo Reports fatigue Dillon/Lymph Denies easy bleeding and Denies lymphadenopathy Aller/Immun Denies lip swelling and Denies tongue swelling Physical Exam Vital Signs: Last Vital Signs Pulse 82 07/13/23 09:04 Pulse Ox 99 07/13/23 09:04 Oxygen Delivery Method Room Air 07/13/23 09:04 BMI result Body Mass Index 47.3 Const General: alert Neck Neck: Yes normal visual inspection, Yes full ROM and Yes no lymphadenopathy Chest Chest palpation & inspection: normal inspection of the chest Resp Auscultation: diminished lung sounds Cardio Rate: regular rate Rhythm: regular rhythm Heart sounds: S1 normal heart sound present and S2 normal heart sound present GI Palpation (GI): Soft to palpation and nontender Auscultation: normal bowel sounds Skin General skin exam: rashes and/or lesions noted Assessment & Plan Assessment & Plan (1) DEMI on CPAP: Code(s): G47.33 - Obstructive sleep apnea (adult) (pediatric); Z99.89 - Dependence on other enabling machines and devices (2) Asthma: Code(s): J45.909 - Unspecified asthma, uncomplicated Qualifiers: Asthma complication type: uncomplicated Asthma persistence: persistent Asthma severity: moderate Qualified Code(s): J45.40 - Moderate persistent asthma, uncomplicated (3) Dyspnea: Code(s): R06.00 - Dyspnea, unspecified Qualifiers: Dyspnea type: dyspnea on exertion Qualified Code(s): R06.00 - Dyspnea, unspecified (4) Sinusitis: Code(s): J32.9 - Chronic sinusitis, unspecified Qualifiers: Chronicity: subacute Sinusitis location: unspecified location Qualified Code(s): J01.90 - Acute sinusitis, unspecified (5) Chronic allergic rhinitis: Code(s): J30.9 - Allergic rhinitis, unspecified Plan continue Breo Continue Incruse OWEN as needed hold fluticasone 2 sprays each nostril daily start budesonide x 2-4 weeks neti bottle daily continue Astelin nasal spray continue singulair continue Claritin start ZPACK start prednisone ENT referral continue CPAP therapy, adjusted nebulizer follow-up in 6 months Orders: Referrals Ear/Nose/Throat Referral J30.9 - Allergic rhinitis, unspecified Medications: New budesonide 0.5 mg (2 mL) inhalation DAILY 30 days 60 mL 11RF J44.9 - Chronic obstructive pulmonary disease, unspecified prednisone PO daily; Take 2 tabs daily x 5 days, then 1 tablet daily x 5 days 10 days 15 tabs 0RF azithromycin 500 mg PO DAILY 5 days 5 tabs 0RF Coding Level of Care Code Est Pt Level 4 (63198) Diagnoses DEMI on CPAP G47.33; Z99.89 Moderate persistent asthma without complication J45.40 Asthma complication type: uncomplicated Asthma persistence: persistent Asthma severity: moderate Dyspnea on exertion R06.00 Dyspnea type: dyspnea on exertion Subacute sinusitis, unspecified location J01.90 Chronicity: subacute Sinusitis location: unspecified location Chronic allergic rhinitis J30.9 Time Spent (min) 17
[2023-07-13 09:04] VITALS: PULSE 82; O2SAT 99; BMI 47.3
== END 2023-07-13 09:35 | disposition home or self-care (01) ==
PROVIDERS: PCP Internal Medicine Medical Oncology; Visit Provider Hospitalist
DX: G47.33 Obstructive sleep apnea (adult) (pediatric) (principal); Z99.89 Dependence on other enabling machines and devices; J45.40 Moderate persistent asthma, uncomplicated; R06.00 Dyspnea, unspecified; J01.90 Acute sinusitis, unspecified; J30.9 Allergic rhinitis, unspecified
CPT/HCPCS: 99214

== ENCOUNTER → 2023-07-13 08:49 | Outpatient (BNVA) | payer OTHER, SELFPAY | PROVIDERS: PCP Internal Medicine Medical Oncology; Visit Provider Hospitalist | DX: J45.40 Moderate persistent asthma, uncomplicated (principal); G47.33 Obstructive sleep apnea (adult) (pediatric); Z99.89 Dependence on other enabling machines and devices | CPT/HCPCS: 99212 ==

== ENCOUNTER 2023-10-15 11:00 | Outpatient (AMB) | payer MEDICARE, MEDICAID, SELFPAY ==
[2023-10-15 11:08] VITALS: BP 160/90; PULSE 95; BMI 49.7
--- NOTE | 2023-10-15 11:08 | A.OFFVIS_ITS ---
Intake Vital Signs 10/15/23 11:08 Height 5 ft 5 in Weight 298 lb 8.094 oz BMI 49.7 BP 160/90 H Blood Pressure Location Lt radial Position Sitting Pulse 95 Pulse Source Pulse Oximeter Intake Visit Reasons: 3 mth fu Intake Note: 3 mnth f/up pt its feeling fine.pt its been having her BP high during all last week. pt been feeling tired alot. Bass Fisher Required: No Accompanied by: Spouse Allergies No Known Allergies Allergy (Verified 07/13/23 09:05) Medication List - Last Reconciled 10/15/23 by Alcon Villalobos MD albuterol sulfate 2.5 mg (3 mL) inhalation Q4H PRN 30 days amlodipine 10 mg PO DAILY aspirin (Adult Aspirin Regimen) 81 mg PO DAILY azelastine 2 sprays intranasal BID 30 days azithromycin 500 mg PO DAILY 5 days budesonide 0.5 mg (2 mL) inhalation DAILY 30 days bupropion HCl 300 mg PO DAILY celecoxib mg PO cholecalciferol (vitamin D3) 50 mcg PO DAILY clopidogrel 75 mg PO DAILY CPAP (CPAP Machine/Device) As directed escitalopram oxalate 20 mg PO DAILY fluticasone furoate-vilanterol 200-25 mcg/dose (Breo Ellipta) 1 inh inhalation DAILY 30 days fluticasone propionate 50 mcg/actuation 2 sprays intranasal DAILY 30 days hydralazine 50 mg PO QID hydroxyzine HCl 50 mg PO TID lisinopril 40 mg PO DAILY loratadine 10 mg PO DAILY 30 days meloxicam 15 mg PO DAILY metoprolol tartrate 50 mg PO BID montelukast 10 mg PO DAILY 30 days nebulizers As directed omeprazole magnesium 20 mg PO DAILY oxymetazoline 0.05% (Afrin Sinus (oxymetazoline)) 2 sprays intranasal Q12H PRN 5 days potassium chloride ER 10 mEq PO DAILY pregabalin 50 mg PO BID simvastatin 40 mg PO BEDTIME trazodone 100 - 200 mg PO BEDTIME PRN umeclidinium 62.5 mcg/actuation (Incruse Ellipta) 1 inh inhalation DAILY 30 days HPI HPI Comments History of Present Illness Details 62-year-old female here for follow-up. She was seen for hypertension previously and her blood pressure has improved on the current medication regimen. She also had exertional chest discomfort for which she underwent cardiac catheterization which did not show any significant coronary artery disease. She has morbid obesity and underwent bariatric surgery. She has lost approximately 90+ lb at this point. She is here for follow-up. She is denying any chest discomfort shortness of breath. Her main complaint is left shoulder pain. 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 She is saying she underwent physiotherapy but there has not been any significant improvement in the shoulder. Blood pressure control is good. Taking medications regularly. 04/23/23: Today she returns for follow-u p. She is status post bariatric surgery and continues to lose weight. She has no chest discomfort shortness of breath. She is saying her asthma is under control. She has been experiencing some episodes of dizziness which she describes as lightheadedness. These episodes happen when she is standing or sitting for long time. She feels hot and flushed and starts feeling lightheaded. She is saying she drinks lot of water and tries to hydrate herself. She has never had vasovagal syncope or fainting episodes before. 10/15/2023: She returns for follow-up. S he is status post bariatric surgery and was losing weight but unfortunately due to stress he started eating more junk food and has gained some weight now. On last visit blood pressure was mildly elevated but she was complaining of some dizziness and we decided not to increase her medications. On follow-up her blood pressure is higher. She is saying that she has gained some weight also. She has seeing a therapist to see how to cope with stress because she overeats whenever she is under stress. Taking medications regularly. She is on Plavix for previous TIA. Occasionally she feels left side is facial tingling. [facility] Medical History (Updated 07/13/23 @ 09:22 by Josh Lee MD) Chronic allergic rhinitis Laryngitis [id number] syndrome CVA (cerebral vascular accident) DEMI on CPAP Dyspnea Chest pressure Asthma Surgical History History of gastric bypass History of left knee surgery History of hysterectomy Family History Mother Breast cancer HTN (hypertension) Father Kidney disease HTN (hypertension) Maternal Uncle Diabetes Son Diabetes Social History Alcohol intake: never Patient Tobacco Use Status: Never used Tobacco Review of Systems Const Reports chills, Reports fatigue, Reports fever(s), Reports frequent falls, Reports weakness, Reports weight gain and Reports weight loss ENT Reports dizziness Card Reports chest pain, Reports leg edema, Reports lightheadedness, Reports palpitations, Reports dyspnea and Reports dyspnea on exertion Resp Reports cough, Reports dyspnea and Reports dyspnea on exertion GI Reports hematochezia Musc Reports abnormal gait, Reports muscle weakness, Reports numbness, Reports radiating pain into limb and Reports tingling Neuro Reports abnormal gait, Reports dizziness, Reports frequent falls, Reports numbness, Reports tingling and Reports weakness Endo Reports fatigue and Reports palpitations Physical Exam Vital Signs: BMI result Body Mass Index 49.7 GENERAL APPEARANCE: in no acute distress, obese. NECK/THYROID: no carotid bruit, no jugular venous distention. SKIN: no suspicious lesions, warm and dry. HEART: no murmurs, regular rate and rhythm, S1, S2 normal. LUNGS: clear to auscultation bilaterally. ABDOMEN: normal, bowel sounds present, soft, nontender, nondistended. EXTREMITIES: no clubbing, cyanosis. PERIPHERAL PULSES: equal. NEUROLOGIC: alert and oriented. Assessment & Plan Assessment & Plan (1) Hypertension: Code(s): I10 - Essential (primary) hypertension Plan Pleasant 62 year female here for follow-up. She has hypertension and is on multiple medications. She also has a background of TIA. She underwent bariatric surgery and was losing weight and her blood pressure was improving but unfortunately she has started eating junk food again and unfortunately has gained weight again. She said she was eating candy and chips. Excessive salt intake can lead to elevated blood pressures and is potentially the cause of blood pressure rise in her. I have cautioned her to be careful with her diet because it will affect her blood pressure as well as may need to failure of her bariatric surgery. I am adding hydrochlorothiazide 25 mg daily. We will have repeat BMP in 7-10 days. She will see us back in 2 months. She is seeing her primary care physician in the interim. She has some or tingling on the left side of her face off and on. She previously had a TIA. Consider referring her to Neurology. She is on Plavix and I think we should continue it for now. Obviously blood p ressure control is quite important in her given her history of TIA. Thank you for allowing me to participate in the care of your patient. Please feel free to contact me if you have any questions. Orders: Orders Basic Metabolic Panel Today I10 - Essential (primary) hypertension Medications: New hydrochlorothiazide 25 mg PO DAILY 60 tabs 3RF I10 - Essential (primary) hypertension Coding Level of Care Code Est Pt Level 4 (04795) Diagnoses Hypertension I10
== END 2023-10-15 11:31 | disposition home or self-care (01) ==
PROVIDERS: PCP Internal Medicine Medical Oncology; Visit Provider Internal Medicine Cardiovascular Disease
DX: I10 Essential (primary) hypertension (principal)
CPT/HCPCS: 99214

== ENCOUNTER → 2023-10-15 11:00 | Outpatient (BNVA) | payer MEDICARE, MEDICAID, SELFPAY | PROVIDERS: PCP Internal Medicine Medical Oncology; Visit Provider Internal Medicine Cardiovascular Disease | DX: I10 Essential (primary) hypertension (principal) | CPT/HCPCS: 99212 ==

== ENCOUNTER 2023-12-12 10:42 | Outpatient (AMB) | payer MEDICARE, MEDICAID, SELFPAY ==
[2023-12-12 10:45] VITALS: BP 160/90; PULSE 79; BMI 49.2
--- NOTE | 2023-12-12 10:45 | A.OFFVIS_ITS ---
Intake Vital Signs 12/12/23 10:45 Height 5 ft 5 in Weight 295 lb 6.711 oz BMI 49.2 BP 160/90 H Blood Pressure Location Lt radial Position Sitting Pulse 79 Pulse Source Pulse Oximeter Intake Visit Reasons: 2 mth f/up Intake Note: pt its here for her 2 mnth f/up/ pt states that most of the time she have some shortness of breath. Manager General Required: No Accompanied by: Self / Same As Patient Allergies No Known Allergies Allergy (Verified 07/13/23 09:05) Medication List - Last Reconciled 12/12/23 by Alcon Villalobos MD albuterol sulfate 2.5 mg (3 mL) inhalation Q4H PRN 30 days amlodipine 10 mg PO DAILY aspirin (Adult Aspirin Regimen) 81 mg PO DAILY azithromycin 500 mg PO DAILY 5 days budesonide 0.5 mg (2 mL) inhalation DAILY 30 days bupropion HCl 300 mg PO DAILY celecoxib mg PO cholecalciferol (vitamin D3) 50 mcg PO DAILY clopidogrel 75 mg PO DAILY CPAP (CPAP Machine/Device) As directed escitalopram oxalate 20 mg PO DAILY fluticasone furoate-vilanterol 200-25 mcg/dose (Breo Ellipta) 1 inh inhalation DAILY 30 days fluticasone propionate 50 mcg/actuation 2 sprays intranasal DAILY 30 days hydralazine 50 mg PO QID hydrochlorothiazide 25 mg PO DAILY hydroxyzine HCl 50 mg PO TID lisinopril 40 mg PO DAILY loratadine 10 mg PO DAILY 30 days meloxicam 15 mg PO DAILY metoprolol tartrate 50 mg PO BID montelukast 10 mg PO DAILY 30 days nebulizers As directed omeprazole magnesium 20 mg PO DAILY potassium chloride ER 10 mEq PO DAILY pregabalin 50 mg PO BID simvastatin 40 mg PO BEDTIME trazodone 100 - 200 mg PO BEDTIME PRN umeclidinium 62.5 mcg/actuation (Incruse Ellipta) 1 inh inhalation DAILY 30 days HPI HPI Comments History of Present Illness Details 63-year-old female here for follow-up. She was seen for hypertension previously and her blood pressure has improved on the current medication regimen. She also had exertional chest discomfort for which she underwent cardiac catheterization which did not show any significant coronary artery disease. She has morbid obesity and underwent bariatric surgery. She has lost appro ximately 90+ lb at this point. She is here for follow-up. She is denying any chest discomfort shortness of breath. Her main complaint is left shoulder pain. 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 She is saying she underwent physiotherapy but there has not been any significant improvement in the shoulder. Blood pressure control is good. Taking medications regularly. 04/23/23: Today she returns for follow-u p. She is status post bariatric surgery and continues to lose weight. She has no chest discomfort shortness of breath. She is saying her asthma is under control. She has been experiencing some episodes of dizziness which she describes as lightheadedness. These episodes happen when she is standing or sitting for long time. She feels hot and flushed and starts feeling lightheaded. She is saying she drinks lot of water and tries to hydrate herself. She has never had vasovagal syncope or fainting episodes before. 10/15/2023: She returns for follow-up. S he is status post bariatric surgery and was losing weight but unfortunately due to stress he started eating more junk food and has gained some weight now. On last visit blood pressure was mildly elevated but she was complaining of some dizziness and we decided not to increase her medications. On follow-up her blood pressure is higher. She is saying that she has gained some weight also. She has seeing a therapist to see how to cope with stress because she overeats whenever she is under stress. Taking medications regularly. She is on Plavix for previous TIA. Occasionally she feels left side is facial tingling. 12/12/23: She returns for follow-up. Carlota arreguin continues to have significantly elevated blood pressure despite being on multiple medication. She was started hydrochlorothiazide last time. She is saying that she has changed her diet and is again beginning to lose some weight. She has lost 3 lb compared to 10/15/2023. Also complaining of some shortness of breath. She is saying shortness of breath can even happen sitting down. Previously had TIA and has been on Plavix. [facility] Medical History (Updated 12/12/23 @ 11:10 by Alcon Villalobos MD) Chronic allergic rhinitis Laryngitis [id number] syndrome CVA (cerebral vascular accident) DEMI on CPAP Dyspnea Chest pressure Asthma Surgical History History of gastric bypass History of left knee surgery History of hysterectomy Family History Mother Breast cancer HTN (hypertension) Father Kidney disease HTN (hypertension) Maternal Uncle Diabetes Son Diabetes Social History Alcohol intake: never Patient Tobacco Use Status: Never used Tobacco Review of Systems Const Denies chills, Denies fatigue, Denies fever(s), Denies frequent falls, Denies weakness, Denies weight gain and Denies weight loss ENT Denies dizziness Card Denies chest pain, Denies leg edema, Denies lightheadedness, Denies palpitations, Reports dyspnea and Reports dyspnea on exertion Resp Denies cough, Reports dyspnea and Reports dyspnea on exertion GI Denies hematochezia Musc Denies abnormal gait, Denies muscle weakness, Denies numbness, Denies radiating pain into limb and Denies tingling Neuro Denies abnormal gait, Denies dizziness, Denies frequent falls, Denies numbness, Denies tingling and Denies weakness Endo Denies fatigue and Denies palpitations Physical Exam Vital Signs: Last Vital Signs Pulse 79 12/12/23 10:45 BP 160/90 H 12/12/23 10:45 BMI result Body Mass Index 49.2 GENERAL APPEARANCE: in no acute distress, obese. NECK/THYROID: no carotid bruit, no jugular venous distention. SKIN: no suspicious lesions, warm and dry. HEART: no murmurs, regular rate and rhythm, S1, S2 normal. LUNGS: clear to auscultation bilaterally. ABDOMEN: normal, bowel sounds present, soft, nontender, nondistended. EXTREMITIES: no clubbing, cyanosis. PERIPHERAL PULSES: equal. NEUROLOGIC: alert and oriented. Assessment & Plan Assessment & Plan (1) Resistant hypertension: Code(s): I1A.0 - Resistant hypertension (2) TIA (transient ischemic attack): Code(s): G45.9 - Transient cerebral ischemic attack, unspecified Plan Pleasant 63 year female who is here for follow-up. She has resistant hypertension. She is currently taking amlodipine 10 mg daily, hydralazine 50 mg 4 times a day, hydrochlorothiazide 25 mg daily, lisinopril 40 mg daily, and metoprolol tartrate 50 mg twice a day. She had a normal renal duplex scan in 2020. Adding spironolactone 25 mg daily. She was advised last time to do basic metabolic panel but it appears she could not do it. I have advised her to start the spironolactone and then have blood work done in 4-5 days. I am referring her to Nephrology for resistant hypertension. She did not have renal artery stenosis as of 2020 ultrasound. Thank you for allowing me to participate in the care of your patient. Please feel free to contact me if you have any questions. Orders: Referrals Nephrology Referral I1A.0 - Resistant hypertension Medications: New spironolactone 25 mg PO DAILY 60 tabs 3RF Coding Level of Care Code Est Pt Level 4 (05113) Diagnoses Resistant hypertension I1A.0 TIA (transient ischemic attack) G45.9
== END 2023-12-12 11:10 | disposition home or self-care (01) ==
PROVIDERS: PCP Internal Medicine Medical Oncology; Visit Provider Internal Medicine Cardiovascular Disease
DX: I1A.0 Resistant hypertension (principal); G45.9 Transient cerebral ischemic attack, unspecified
CPT/HCPCS: 99214

== ENCOUNTER → 2023-12-12 10:42 | Outpatient (BNVA) | payer MEDICARE, MEDICAID, SELFPAY | PROVIDERS: PCP Internal Medicine Medical Oncology; Visit Provider Internal Medicine Cardiovascular Disease | DX: I1A.0 Resistant hypertension (principal); G45.9 Transient cerebral ischemic attack, unspecified | CPT/HCPCS: 99212 ==

== ENCOUNTER 2024-01-30 08:34 | Outpatient (AMB) | payer OTHER, MEDICAID, SELFPAY ==
[2024-01-30 08:42] VITALS: PULSE 66; O2SAT 98; BMI 48.8
--- NOTE | 2024-01-30 08:42 | A.OFFVIS_ITS ---
Vital Signs 01/30/24 08:42 Height 5 ft 5 in Weight 293 lb 6.964 oz BMI 48.8 Pulse 66 Pulse Source Pulse Oximeter Pulse Oximetry (%) 98 Oxygen Delivery Method Room Air Intake Visit Reasons: asthma Steel Layer Required: No Allergies No Known Allergies Allergy (Verified 01/30/24 08:45) HPI Comments Details: The patient is a 63-year-old woman with a known history of asthma in addition to obstructive sleep apnea. Recently she developed left-sided weakness and numbness and she was evaluated at [facility]. She was so she had a small CVA. She is now trying to control her blood pressure and also lose weight. In the meantime she does complaint of dyspnea on exertion also with chest heaviness. [id number] severity. It does take her between 3-5 minutes to recover from her ambulation. She has been using Breo for asthma with good effect. She also has a rescue inhaler that she uses at times but less than twice a week. In addition to that she does use her CPAP every night. CPAP therapy continues to be affecting beneficial. She feels the pressures are too long rather have the elevations in the pressures. I did request axis from her [employer] [place] to get access in order to adjust the machine online. In the office we did have her go for 6 minutes walk test. She did not desaturate heart rate went up to 102. During the ambulation she did complaint of chest heaviness and therefore had to stop. Her symptoms resolved after stopping. I did inform her that I did think cardiology consultation be warranted at this time specially with her recent CVA in her increase cardiovascular risk factors. Were also optimize respiratory therapy and also try to optimize her PAP therapy. 07/13/2023 the patient is here for pulmonary follow-up visit. Overall she is doing well. She is losing weight and she is motivated. In addition to that she has gotten relief from her Breo inhaler. She has not require her short-acting beta agonist. We did review her pulmonary function studies demonstrating normal lung capacity and normal lung mechanics. Does have a component of small airways disease which is likely from the asthma. Regards to the CPAP the CPAP therapy continues to be affecting beneficial. She continues using more than 4 hours a night. Her major complaint is chronic cough and some constant clearing of the throat which she feels that she has fullness in secretions. Explained to her that is likely from an upper airway cough syndrome in nasal congestion. We will optimize her nasal therapy. If however the patient has no improvement then an ENT evaluation. 01/30/2024 the patient is here for a pulmonary follow-up visit. She still complaining of nasal congestion postnasal drip. Recently she was sick and she had to go to see her primary care and she was prescribed antibiotics for likely sinusitis. She did get better although she still feels congested. In addition to that because of the postnasal drip in the cough is hard for her to tolerate her CPAP. She does use her CPAP and she does try to use more than 4 hours a night. CPAP therapy has been affecting beneficial. She needs to get supplies from the [employer] [place]. Therefore, will go ahead and treat her more effectively for her sinusitis and hopefully subside the cough in order for her to tolerate her CPAP better. [facility] Medical History (Updated 12/12/23 @ 11:10 by Alcon Villalobos MD) Chronic allergic rhinitis Laryngitis [id number] syndrome CVA (cerebral vascular accident) DEMI on CPAP Dyspnea Chest pressure Asthma Surgical History History of gastric bypass History of left knee surgery History of hysterectomy Family History Mother Breast cancer HTN (hypertension) Father Kidney disease HTN (hypertension) Maternal Uncle Diabetes Son Diabetes Social History Alcohol intake: never Patient Tobacco Use Status: Never used Tobacco Review of Systems Const Reports fatigue, Denies fever(s), Denies night sweats and Reports weight loss ENT Denies change in voice, Denies lip swelling, Denies mouth pain, Reports nasal congestion, Reports nasal discharge, Reports nasal obstruction, Reports post nasal drip, Reports sinus pain, Reports sinus pressure and Denies tongue swelling Card Denies chest pain and Reports dyspnea on exertion Resp Reports cough and Reports dyspnea on exertion GI Denies abdominal pain Musc Denies no additional complaints Neuro Denies Neuro-related abnormal movements Psych Denies no additional complaints Endo Reports fatigue Dillon/Lymph Denies easy bleeding and Denies lymphadenopathy Aller/Immun Denies lip swelling and Denies tongue swelling Physical Exam Vital Signs: Last Vital Signs Pulse 66 01/30/24 08:42 Pulse Ox 98 01/30/24 08:42 Oxygen Delivery Method Room Air 01/30/24 08:42 BMI result Body Mass Index 48.8 Const General: alert Neck Neck: Yes normal visual inspection, Yes full ROM and Yes no lymphadenopathy Chest Chest palpation & inspection: normal inspection of the chest Resp Auscultation: diminished lung sounds Cardio Rate: regular rate Rhythm: regular rhythm Heart sounds: S1 normal heart sound present and S2 normal heart sound present GI Palpation (GI): Soft to palpation and nontender Auscultation: normal bowel sounds Skin General skin exam: rashes and/or lesions noted Assessment & Plan Assessment & Plan (1) DEMI on CPAP: Code(s): G47.33 - Obstructive sleep apnea (adult) (pediatric); Z99.89 - Dependence on other enabling machines and devices Category: Medical (2) Asthma: Code(s): J45.909 - Unspecified asthma, uncomplicated Category: Medical Qualifiers: Asthma complication type: uncomplicated Asthma persistence: persistent Asthma severity: moderate Qualified Code(s): J45.40 - Moderate persistent asthma, uncomplicated (3) Dyspnea: Code(s): R06.00 - Dyspnea, unspecified Category: Medical Qualifiers: Dyspnea type: dyspnea on exertion Qualified Code(s): R06.00 - Dyspnea, unspecified (4) Sinusitis: Code(s): J32.9 - Chronic sinusitis, unspecified Category: Medical Qualifiers: Chronicity: subacute Sinusitis location: unspecified location Qualified Code(s): J01.90 - Acute sinusitis, unspecified (5) Chronic allergic rhinitis: Code(s): J30.9 - Allergic rhinitis, unspecified Category: Medical Plan continue Breo Continue Incruse OWEN as needed neti bottle daily continue Astelin nasal spray continue singulair continue Claritin start Doxycycline start ipratropium nasal spray HOB elevated continue CPAP therapy, adjusted nebulizer follow-up in 6 months Medications: New doxycycline hyclate 100 mg PO BID 20 caps 0RF 10 days ipratropium bromide administer into each nostril 2 sprays intranasal TID PRN 15 mL 6RF allergy symptoms Refilled albuterol sulfate 2.5 mg (3 mL) inhalation Q4H PRN 90 mL 11RF shortness of breath or wheezing 30 days Coding Level of Care Code Est Pt Level 4 (53303) Diagnoses DEMI on CPAP G47.33; Z99.89 Moderate persistent asthma without complication J45.40 Asthma complication type: uncomplicated Asthma persistence: persistent Asthma severity: moderate Dyspnea on exertion R06.00 Dyspnea type: dyspnea on exertion Subacute sinusitis, unspecified location J01.90 Chronicity: subacute Sinusitis location: unspecified location Chronic allergic rhinitis J30.9 Time Spent (min) 17
== END 2024-01-30 09:04 | disposition home or self-care (01) ==
PROVIDERS: PCP Internal Medicine Medical Oncology; Visit Provider Hospitalist
DX: G47.33 Obstructive sleep apnea (adult) (pediatric) (principal); Z99.89 Dependence on other enabling machines and devices; J45.40 Moderate persistent asthma, uncomplicated; R06.00 Dyspnea, unspecified; J01.90 Acute sinusitis, unspecified; J30.9 Allergic rhinitis, unspecified
CPT/HCPCS: 99214

== ENCOUNTER → 2024-01-30 08:34 | Outpatient (BNVA) | payer OTHER, MEDICAID, SELFPAY | PROVIDERS: PCP Internal Medicine Medical Oncology; Visit Provider Hospitalist | DX: J30.9 Allergic rhinitis, unspecified (principal); J44.9 Chronic obstructive pulmonary disease, unspecified ==

== ENCOUNTER 2024-04-21 09:04 | Outpatient (AMB) | payer OTHER, MEDICAID, SELFPAY ==
--- NOTE | 2024-04-21 09:12 | MHC.OFFVIS ---
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 Accompanied by: Self / Same As Patient Allergies No Known Allergies Allergy (Verified 01/30/24 08:45) Medication List - Last Reconciled 04/21/24 by Aclon Villalobos MD albuterol sulfate 2.5 mg (3 mL) inhalation Q4H PRN 30 days amlodipine 10 mg PO DAILY aspirin (Adult Aspirin Regimen) 81 mg PO DAILY budesonide 0.5 mg (2 mL) inhalation DAILY 30 days bupropion HCl XL 300 mg PO DAILY celecoxib mg PO cholecalciferol (vitamin D3) 50 mcg PO DAILY clopidogrel 75 mg PO DAILY CPAP (CPAP Machine/Device) As directed doxycycline hyclate 100 mg PO BID 10 days escitalopram oxalate 20 mg PO DAILY fluticasone furoate-vilanterol 200-25 mcg/dose (Breo Ellipta) 1 inh inhalation DAILY 30 days fluticasone propionate 50 mcg/actuation 2 sprays intranasal DAILY 30 days hydralazine 50 mg PO QID hydrochlorothiazide 25 mg PO DAILY hydroxyzine HCl 50 mg PO TID ipratropium bromide 2 sprays intranasal TID PRN lisinopril 40 mg PO DAILY loratadine 10 mg PO DAILY 30 days meloxicam 15 mg PO DAILY metoprolol tartrate 50 mg PO BID montelukast 10 mg PO DAILY 30 days nebulizers As directed omeprazole magnesium 20 mg PO DAILY pregabalin 50 mg PO BID simvastatin 40 mg PO BEDTIME spironolactone 25 mg PO DAILY trazodone 100 - 200 mg PO BEDTIME PRN umeclidinium 62.5 mcg/actuation (Incruse Ellipta) 1 inh inhalation DAILY 30 days HPI Comments Details: 63-year-old female here for follow-up. She was seen for hypertension previously and her blood pressure has improved on the current medication regimen. She also had exertional chest discomfort for which she underwent cardiac catheterization which did not show any significant coronary artery disease. She has morbid obesity and underwent bariatric surgery. She has lost approximately 90+ lb at this point. She is here for follow-up. She is denying any chest discomfort shortness of breath. Her main complaint is left shoulder pain. 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 She is saying she underwent physiotherapy but there has not been any significant improvement in the shoulder. Blood pressure control is good. Taking medications regularly. 04/23/23: Today she returns for follow-up. She is status post bariatric surgery and continues to lose weight. She has no chest discomfort shortness of breath. She is saying her asthma is under control. She has been experiencing some episodes of dizziness which she describes as lightheadedness. These episodes happen when she is standing or sitting for long time. She feels hot and flushed and starts feeling lightheaded. She is saying she drinks lot of water and tries to hydrate herself. She has never had vasovagal syncope or fainting episodes before. 10/15/2023: She returns for follow-up. She is status post bariatric surgery and was losing weight but unfortunately due to stress he started eating more junk food and has gained some weight now. On last visit blood pressure was mildly elevated but she was complaining of some dizziness and we decided not to increase her medications. On follow-up her blood pressure is higher. She is saying that she has gained some weight also. She has seeing a therapist to see how to cope with stress because she overeats whenever she is under stress. Taking medications regularly. She is on Plavix for previous TIA. Occasionally she feels left side is facial tingling. 12/12/23: She returns for follow-up. She continues to have significantly elevated blood pressure despite being on multiple medication. She was started hydrochlorothiazide last time. She is saying that she has changed her diet and is again beginning to lose some weight. She has lost 3 lb compared to 10/15/2023. Also complaining of some shortness of breath. She is saying shortness of breath can even happen sitting down. Previously had TIA and has been on Plavix. 04/21/2024: She is here for follow-up. She is taking amlodipine 10 mg, hydralazine 50 mg 4 times a day, hydrochlorothiazide 25 mg daily, lisinopril 40 mg daily, metoprolol tartrate 50 mg twice a day and spironolactone 25 mg daily. Her blood pressure in the office today is 130/70. She has been taking medications regularly. Denying any chest discomfort shortness of breath. Previously had TIA and has been on Plavix 75 mg daily. No further neurological complaints from her. She is watching her diet and has lost weight and has lost 6 lb since 02/18/2024. [facility] Medical History (Updated 12/12/23 @ 11:10 by Alcon Villalobos MD) Chronic allergic rhinitis Laryngitis [id number] syndrome CVA (cerebral vascular accident) DEMI on CPAP Dyspnea Chest pressure Asthma Surgical History History of gastric bypass History of left knee surgery History of hysterectomy Family History Mother Breast cancer HTN (hypertension) Father Kidney disease HTN (hypertension) Maternal Uncle Diabetes Son Diabetes Social History Alcohol intake: never Patient Tobacco Use Status: Never used Tobacco Review of Systems Const Denies chills, Denies fatigue, Denies fever(s), Denies frequent falls, Denies weakness, Denies weight gain and Denies weight loss ENT Denies dizziness Card Denies chest pain, Denies leg edema, Denies lightheadedness, Denies palpitations, Denies dyspnea and Denies dyspnea on exertion Resp Denies cough, Denies dyspnea and Denies dyspnea on exertion GI Denies hematochezia Musc Denies abnormal gait, Denies muscle weakness, Denies numbness, Denies radiating pain into limb and Denies tingling Neuro Denies abnormal gait, Denies dizziness, Denies frequent falls, Denies numbness, Denies tingling and Denies weakness Endo Denies fatigue and Denies palpitations Physical Exam Vital Signs: Last Vital Signs Pulse 68 04/21/24 09:13 BP 130/70 04/21/24 09:13 BMI result Body Mass Index 47.8 GENERAL APPEARANCE: in no acute distress, obese. NECK/THYROID: no carotid bruit, no jugular venous distention. SKIN: no suspicious lesions, warm and dry. HEART: no murmurs, regular rate and rhythm, S1, S2 normal. LUNGS: clear to auscultation bilaterally. ABDOMEN: normal, bowel sounds present, soft, nontender, nondistended. EXTREMITIES: no clubbing, cyanosis. PERIPHERAL PULSES: equal. NEUROLOGIC: alert and oriented. Office Procedures EKG Details: Sinus rhythm 68 beats per minute, nonspecific ST changes, QTC 448 milliseconds. [id number], Complete Assessment & Plan Assessment & Plan (1) Resistant hypertension: Code(s): I1A.0 - Resistant hypertension Category: Medical (2) TIA (transient ischemic attack): Code(s): G45.9 - Transient cerebral ischemic attack, unspecified Category: Medical Plan Pleasant 63 year female who is here for follow-up. She has resistant hypertension. Blood pressure is improving on current regimen. She is watching her diet again and is beginning to lose weight again. She had a normal renal duplex scan in 2020. I want her to do a basic metabolic panel and CBC today. She will see us back in 4 months. Thank you for allowing me to participate in the care of your patient. Please feel free to contact me if you have any questions. Orders: Orders Complete Blood Count no Diff Today I10 - Essential (primary) hypertension Basic Metabolic Panel Today I10 - Essential (primary) hypertension Coding Level of Care Code Est Pt Level 4 (78032) Diagnoses Resistant hypertension I1A.0 TIA (transient ischemic attack) G45.9 CPT Codes EKG - CPT: 20453-[id number], Complete ([id number])
[2024-04-21 09:13] VITALS: BP 130/70; PULSE 68; BMI 47.8
== END 2024-04-21 09:33 | disposition home or self-care (01) ==
PROVIDERS: PCP Internal Medicine Medical Oncology; Visit Provider Internal Medicine Cardiovascular Disease
DX: I1A.0 Resistant hypertension (principal); G45.9 Transient cerebral ischemic attack, unspecified
CPT/HCPCS: 93010; 99214

== ENCOUNTER 2024-04-21 09:04 | Outpatient (REF) | payer OTHER, MEDICAID, SELFPAY ==
[2024-04-21 10:45] LABS: Hematocrit 34.3 % (37.0-47.0); Hemoglobin 10.8 g/dl (12.0-16.0); Mean Corpuscular HGB Conc 31.5 g/dl (31.0-35.0); Mean Corpuscular Hemoglobin 25.9 pg (27.0-33.0); Mean Corpuscular Volume 82.3 fL (80.0-98.0); Mean Platelet Volume 10.3 fL (9.4-12.3); Platelet Count 218 X10*3/uL (160-400); Red Blood Count 4.17 X10*6/uL (4.20-5.50); White Blood Count 5.3 X10*3/uL (4.8-10.8)
[2024-04-21 11:21] LABS: Anion Gap 12 (12-20); Blood Urea Nitrogen 27 mg/dL (9-16); Carbon Dioxide 20 mmol/L (22-29); Chloride 115 mmol/L (96-108); Estimated Glomerular Filt Rate 38; Glucose Random 85 mg/dL (60-115); Sodium 143 mmol/L (135-145)
== END 2024-04-21 09:05 | disposition home or self-care (01) ==
LOC: HO.LAB 09:04
PROVIDERS: PCP Internal Medicine Medical Oncology; Visit Provider Internal Medicine Cardiovascular Disease
DX: I1A.0 Resistant hypertension (principal); G45.9 Transient cerebral ischemic attack, unspecified
CPT/HCPCS: 36415; 80048; 85027; 93005

== ENCOUNTER 2024-05-02 14:39 | Outpatient (AMB) | payer MEDICARE, MEDICAID, SELFPAY ==
--- NOTE | 2024-05-02 14:53 | HO.NEPHOV ---
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 Recently she had left-sided weakness and numbness and she was evaluated at [facility] and was found to have a small CVA. Her blood pressure had not been well controlled. She is now trying to control her blood pressure and also lose weight. She does use her CPAP every night. She has history of gastric bypass surgery. She is not a diabetic. She has been taking YOSEF inhibitor as well as nonsteroidal anti-inflammatories along with hydrochlorothiazide. Her urine output is good. She does not have any new joint swellings, epistaxis, photosensitivity, hematuria, flank pain, history of peripheral arterial disease, history of renal artery stenosis, nephrolithiasis, new skin rashes. She is concerned about her doubling of serum creatinine. 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 CVA (cerebral vascular accident) DEMI on CPAP Dyspnea Chest pressure Asthma Surgical History History of gastric bypass History of left knee surgery History of hysterectomy Family History Mother Breast cancer HTN (hypertension) Father Kidney disease HTN (hypertension) Maternal Uncle Diabetes Son Diabetes Social History Alcohol intake: never Patient Tobacco Use Status: Never used Tobacco Review of Systems Const All systems reviewed & are unremarkable except as noted in HPI and below Physical Exam Vital Signs: Last Vital Signs Pulse 71 05/02/24 14:54 BP 170/90 H 05/02/24 14:54 Pulse Ox 99 05/02/24 14:54 Oxygen Delivery Method Room Air 05/02/24 14:54 BMI result Body Mass Index 47.8 Const General: no acute distress Orientation/consciousness: patient oriented x3 Eyes EOM: EOMs intact bilaterally Neck Neck: Yes supple Resp Auscultation: diminished lung sounds Cardio Rate: regular rate GI Palpation (GI): Soft to palpation Neuro General: patient oriented x3 Extrem General: Yes no pedal edema Results Reviewed Nephrology Results: Hgb 10.8 g/dl (12.0-16.0) L 04/21/24 WBC 5.3 X10*3/uL (4.8-10.8) 04/21/24 Plt Count 218 X10*3/uL (160-400) 04/21/24 Sodium 143 mmol/L (135-145) 04/21/24 Potassium 4.0 mmol/L (3.3-5.1) 04/21/24 Chloride 115 mmol/L (96-108) H 04/21/24 Carbon Dioxide 20 mmol/L (22-29) L 04/21/24 BUN 27 mg/dL (9-16) H 04/21/24 Creatinine 1.40 mg/dL (0.5-1.4) 04/21/24 Calcium 10.0 mg/dL (8.4-10.2) 04/21/24 Assessment & Plan Assessment & Plan (1) RACHID (acute kidney injury): Code(s): N17.9 - Acute kidney failure, unspecified Category: Medical (2) Hypertension: Code(s): I10 - Essential (primary) hypertension Category: Medical Qualifiers: Hypertension type: primary hypertension Qualified Code(s): I10 - Essential (primary) hypertension Plan Lynnette has RACHID most likely due to tubular injury. She has been taking YOSEF inhibitor, diuretics and nonsteroidal anti-inflammatories same time. She might have had altered autoregulation of the kidney. Her urine output is good. There is no reason to suspect any obstructive uropathy. I ordered workup. I asked her to discontinue her nonsteroidal anti-inflammatories and maintain good hydration. If her serum creatinine continues to rise I definitely will put a hold on her YOSEF inhibitor and diuretics. Her blood pressure needs to be maintain a goal. I shall continue to optimize her medications to get her blood pressure to goal in her subsequent office visits. I shall do further imaging studies and will consider a renal biopsy if needed, based on evolving data. All these have been explained in detail. Time spent retrieving all the data, patient encounter, documentation 58 minutes. Answered all questions. Follow-up appointment given. Orders: Orders Creatinine 05/02/24 N17.9 - Acute kidney failure, unspecified, I10 - Essential (primary) hypertension Electrolytes 05/02/24 N17.9 - Acute kidney failure, unspecified, I10 - Essential (primary) hypertension Vitamin B12 and Folate 05/02/24 N17.9 - Acute kidney failure, unspecified, I10 - Essential (primary) hypertension UA and rflx microscopic 05/02/24 N17.9 - Acute kidney failure, unspecified, I10 - Essential (primary) hypertension Complement C3 05/02/24 N17.9 - Acute kidney failure, unspecified, I10 - Essential (primary) hypertension Complement C4 05/02/24 N17.9 - Acute kidney failure, unspecified, I10 - Essential (primary) hypertension Blood Urea Nitrogen 05/02/24 N17.9 - Acute kidney failure, unspecified, I10 - Essential (primary) hypertension Calcium 05/02/24 N17.9 - Acute kidney failure, unspecified, I10 - Essential (primary) hypertension Immunofixation Pnl, Serum 05/02/24 N17.9 - Acute kidney failure, unspecified, I10 - Essential (primary) hypertension Lactate Dehydrogenase 05/02/24 N17.9 - Acute kidney failure, unspecified, I10 - Essential (primary) hypertension Ferritin 05/02/24 N17.9 - Acute kidney failure, unspecified, I10 - Essential (primary) hypertension IRON PROFILE 05/02/24 N17.9 - Acute kidney failure, unspecified, I10 - Essential (primary) hypertension Protein Creatinine Ratio, Ur 05/02/24 N17.9 - Acute kidney failure, unspecified, I10 - Essential (primary) hypertension Coding Level of Care Code New Pt Level 5 (86781) Diagnoses RACHID (acute kidney injury) N17.9 Primary hypertension I10 Hypertension type: primary hypertension
[2024-05-02 14:54] VITALS: BP 170/90; PULSE 71; O2SAT 99; BMI 47.8
== END 2024-05-02 15:30 | disposition home or self-care (01) ==
PROVIDERS: PCP Internal Medicine Medical Oncology; Visit Provider Internal Medicine Nephrology
DX: N17.9 Acute kidney failure, unspecified (principal); I10 Essential (primary) hypertension
CPT/HCPCS: 99204

== ENCOUNTER → 2024-05-02 14:39 | Outpatient (BNVA) | payer MEDICARE, MEDICAID, SELFPAY | PROVIDERS: PCP Internal Medicine Medical Oncology; Visit Provider Internal Medicine Nephrology | DX: I10 Essential (primary) hypertension (principal); N17.9 Acute kidney failure, unspecified | CPT/HCPCS: 99202 ==

== ENCOUNTER 2024-05-28 11:08 | Outpatient (REF) | payer MEDICARE, MEDICAID, SELFPAY ==
[2024-05-28 12:32] LABS: Anion Gap 9 (12-20); Blood Urea Nitrogen 26 mg/dL (9-16); Calcium 9.8 mg/dL (8.4-10.2); Carbon Dioxide 24 mmol/L (22-29); Chloride 113 mmol/L (96-108); Estimated Glomerular Filt Rate 50; Iron 95 mcg/dL (30-160); Lactate Dehydrogenase 183 U/L (122-220); Percent Iron Saturation 39 % (15-50); Potassium 4.3 mmol/L (3.3-5.1); Sodium 142 mmol/L (135-145); Total Iron Binding Capacity 241 mcg/dL (228-428); Unsaturated Iron Binding 146 ug/dL
[2024-05-28 12:53] LABS: Ferritin 182 ng/mL (10-250)
[2024-05-28 12:57] LABS: Folate 6.1 ng/mL (> or = 4.0); Vitamin B12 530 pg/mL (200-900)
[2024-05-28 14:07] LABS: Appearance Urine Turbid; Color Urine Yellow; Glucose Urine UA Negative (Negative); Leukocyte Esterase Urine Moderate (2+) (Negative); Nitrite Urine Negative (Negative); PH 5.5 (5.0-9.0); Specific Gravity - Urine 1.025 (1.005-1.025); UMIC TRIGGER UA YES; Urine Blood Negative (Negative); Urine Ketones Negative (Negative); Urine Protein Negative (Neg-Trace)
[2024-05-28 14:10] LABS: Bacteria Urine 4+ (None Seen); RBC Urine 0-2 /HPF (0-2); Squamous Epithelial Cell Urine >20 /HPF (0-2); WBC Urine 21-50 /HPF (0-5)
[2024-05-28 14:56] LABS: Creatinine Urine 165.24 mg/dL; Protein/Creatinine Ratio, Ur 0.06 (<0.2); Total Protein Urine Random 10 mg/dL (<12)
[2024-05-29 11:58] LABS: Complement C3 126 mg/dL (83-193)
[2024-06-05 15:58] LABS: IgA 225 mg/dL (70-320); IgG 1080 mg/dL (600-1540); IgM 83 mg/dL (50-300)
== END 2024-05-28 11:09 | disposition home or self-care (01) ==
LOC: HO.LAB 11:08
PROVIDERS: PCP Internal Medicine Medical Oncology; Visit Provider Internal Medicine Nephrology
DX: N17.9 Acute kidney failure, unspecified (principal); I10 Essential (primary) hypertension
CPT/HCPCS: 36415; 80051; 81001; 81003; 82310; 82565; 82570; 82607; 82728; 82746; 82784; 83540; 83615; 84156; 84520; 86160; 86334

== ENCOUNTER 2024-06-09 12:04 | Outpatient (AMB) | payer MEDICARE, MEDICAID, SELFPAY ==
--- NOTE | 2024-06-09 12:07 | HO.NEPHOV ---
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 Recently she had left-sided weakness and numbness and she was evaluated at [facility] and was found to have a small CVA. Her blood pressure had not been well controlled. She is now trying to control her blood pressure and also lose weight. She does use her CPAP every night. She has history of gastric bypass surgery. She is not a diabetic. She has been taking YOSEF inhibitor as well as nonsteroidal anti-inflammatories along with hydrochlorothiazide. Her urine output is good. She does not have any new joint swellings, epistaxis, photosensitivity, hematuria, flank pain, history of peripheral arterial disease, history of renal artery stenosis, nephrolithiasis, new skin rashes. Her serum creatinine has improved COUNT INCLUDES [facility] Medical History (Updated 05/02/24 @ 15:25 by Da Raya MD) Chronic allergic rhinitis Laryngitis [id number] syndrome CVA (cerebral vascular accident) DEMI on CPAP Dyspnea Chest pressure Asthma Surgical History History of gastric bypass History of left knee surgery History of hysterectomy Family History Mother Breast cancer HTN (hypertension) Father Kidney disease HTN (hypertension) Maternal Uncle Diabetes Son Diabetes Social History Alcohol intake: never Patient Tobacco Use Status: Never used Tobacco Review of Systems Const All systems reviewed & are unremarkable except as noted in HPI and below Physical Exam Vital Signs: Last Vital Signs Pulse 66 06/09/24 12:09 BP 166/100 H 06/09/24 12:09 Pulse Ox 99 06/09/24 12:09 Oxygen Delivery Method Room Air 06/09/24 12:09 BMI result Body Mass Index 46.9 Const Other: Obese General: comfortable and no acute distress Orientation/consciousness: patient oriented x3 HEENT Head: Yes normocephalic Mouth: Normal oral and palatal mucosa present Eyes EOM: EOMs intact bilaterally Neck Neck: Yes supple Resp Auscultation: clear to auscultation bilaterally Cardio Jugular venous distension: no JVD Rate: regular rate GI Palpation (GI): Soft to palpation Auscultation: normal bowel sounds General: Yes no CVA tenderness Back/Spine/Pelvis Back: no CVA tenderness Skin General skin exam: no rashes or lesions noted Neuro General: patient oriented x3 and moves all extremities Extrem General: Yes no pedal edema Results Reviewed Nephrology Results: Hgb 10.8 g/dl (12.0-16.0) L 04/21/24 WBC 5.3 X10*3/uL (4.8-10.8) 04/21/24 Plt Count 218 X10*3/uL (160-400) 04/21/24 Sodium 142 mmol/L (135-145) 05/28/24 Potassium 4.3 mmol/L (3.3-5.1) 05/28/24 Chloride 113 mmol/L (96-108) H 05/28/24 Carbon Dioxide 24 mmol/L (22-29) 05/28/24 BUN 26 mg/dL (9-16) H 05/28/24 Creatinine 1.10 mg/dL (0.5-1.4) 05/28/24 Calcium 9.8 mg/dL (8.4-10.2) 05/28/24 Urine Protein Negative mg/dL (Neg-Trace) 05/28/24 Urine Creatinine 165.24 mg/dL 05/28/24 Protein/Creatinin Ratio 0.06 (<0.2) 05/28/24 Assessment & Plan Assessment & Plan (1) RACHID (acute kidney injury): Code(s): N17.9 - Acute kidney failure, unspecified Category: Medical (2) Resistant hypertension: Code(s): I1A.0 - Resistant hypertension Category: Medical Plan Lynnette has RACHID most likely due to tubular injury which is resolving. She has been taking YOSEF inhibitor, diuretics and nonsteroidal anti-inflammatories same time. She might have had altered autoregulation of the kidney. Her urine output is good. There is no reason to suspect any obstructive uropathy. I asked her not to discontinue her nonsteroidal anti-inflammatories and maintain good hydration. Her blood pressure needs to be maintain a goal. I shall continue to optimize her medications to get her blood pressure to goal in her subsequent office visits. I ordered renal USS and Doppler of renal arteries. I will consider a renal biopsy if needed, based on evolving data. All these have been explained in detail. Orders: Orders Blood Urea Nitrogen Today N17.9 - Acute kidney failure, unspecified US renal BI Today N17.9 - Acute kidney failure, unspecified Aldosterone Today I1A.0 - Resistant hypertension Aldost/Renin Today I1A.0 - Resistant hypertension TSH reflex Free T4 Today I1A.0 - Resistant hypertension Cortisol Random Today I1A.0 - Resistant hypertension Metanephrines, Plasma Today I1A.0 - Resistant hypertension Creatinine Today N17.9 - Acute kidney failure, unspecified Electrolytes Today N17.9 - Acute kidney failure, unspecified Calcium Today N17.9 - Acute kidney failure, unspecified Protein Creatinine Ratio, Ur Today N17.9 - Acute kidney failure, unspecified US renal doppler Today I1A.0 - Resistant hypertension Renin Today I1A.0 - Resistant hypertension Coding Level of Care Code Est Pt Level 4 (32104) Diagnoses RCAHID (acute kidney injury) N17.9 Resistant hypertension I1A.0
[2024-06-09 12:09] VITALS: BP 140/90; PULSE 66; O2SAT 99; BMI 46.9
== END 2024-06-09 12:48 | disposition home or self-care (01) ==
PROVIDERS: PCP Internal Medicine Medical Oncology; Visit Provider Internal Medicine Nephrology
DX: N17.9 Acute kidney failure, unspecified (principal); I1A.0 Resistant hypertension
CPT/HCPCS: 99214

== ENCOUNTER → 2024-06-09 12:04 | Outpatient (BNVA) | payer MEDICARE, MEDICAID, SELFPAY | PROVIDERS: PCP Internal Medicine Medical Oncology; Visit Provider Internal Medicine Nephrology | DX: I1A.0 Resistant hypertension (principal); N17.9 Acute kidney failure, unspecified; G47.33 Obstructive sleep apnea (adult) (pediatric); Z99.89 Dependence on other enabling machines and devices; Z86.73 Personal history of transient ischemic attack (TIA), and cerebral infarction without residual deficits | CPT/HCPCS: 99212 ==

== ENCOUNTER 2024-06-25 10:02 | Outpatient (REF) | payer MEDICARE, MEDICAID, SELFPAY ==
--- NOTE | ~2024-06-25 | US_ITS ---
EXAMINATION: US RETROPERITONEAL LIMITED (RENAL ONLY) CLINICAL INFORMATION: Acute renal failure. COMPARISON: 12/30/2020 TECHNIQUE: Standard renal ultrasound bilaterally with color and duplex Doppler. FINDINGS: RIGHT KIDNEY: 10.3 x 5.0 x 5.6 cm (SAG x AP x TRV). The kidney is normal in size, contour, and echogenicity. Renal cortical thickness is normal. No calculi or focal parenchymal lesions. No hydronephrosis. Duplex Doppler interrogation of the renal arteries bilaterally and calculation resistive indices demonstrate normal parameters bilaterally. Early systolic peaks appear symmetrical and normal bilaterally. Please refer to the technologist's note for details. LEFT KIDNEY: 10.1 x 5.2 x 5.7 cm (SAG x AP x TRV). The kidney is normal in size, contour, and echogenicity. Renal cortical thickness is normal. No calculi or focal parenchymal lesions. No hydronephrosis. Normal renal artery velocities and resistive indices as above. US/US renal doppler IMPRESSION: No hydronephrosis. No sonographic evidence for any hemodynamically significant renal artery stenosis. Electronically signed by: Denny Eddy MD 06/25/2024 02:14 PM EDT
--- NOTE | ~2024-06-25 | US_ITS ---
EXAMINATION: US RETROPERITONEAL LIMITED (RENAL ONLY) CLINICAL INFORMATION: Acute renal failure. COMPARISON: 12/30/2020 TECHNIQUE: Standard renal ultrasound bilaterally with color and duplex Doppler. FINDINGS: RIGHT KIDNEY: 10.3 x 5.0 x 5.6 cm (SAG x AP x TRV). The kidney is normal in size, contour, and echogenicity. Renal cortical thickness is normal. No calculi or focal parenchymal lesions. No hydronephrosis. Duplex Doppler interrogation of the renal arteries bilaterally and calculation resistive indices demonstrate normal parameters bilaterally. Early systolic peaks appear symmetrical and normal bilaterally. Please refer to the technologist's note for details. LEFT KIDNEY: 10.1 x 5.2 x 5.7 cm (SAG x AP x TRV). The kidney is normal in size, contour, and echogenicity. Renal cortical thickness is normal. No calculi or focal parenchymal lesions. No hydronephrosis. Normal renal artery velocities and resistive indices as above. US/US renal BI IMPRESSION: No hydronephrosis. No sonographic evidence for any hemodynamically significant renal artery stenosis. Electronically signed by: Denny Eddy MD 06/25/2024 02:14 PM EDT
== END 2024-06-25 10:03 | disposition home or self-care (01) ==
LOC: HO.US 10:02
PROVIDERS: PCP Internal Medicine Medical Oncology; Visit Provider Internal Medicine Nephrology
DX: I1A.0 Resistant hypertension (principal); N17.9 Acute kidney failure, unspecified
CPT/HCPCS: 76775; 93975

== ENCOUNTER 2024-07-11 10:39 | Outpatient (REF) | payer MEDICARE, MEDICAID, SELFPAY ==
[2024-07-11 11:45] LABS: Appearance Urine Clear; Color Urine Yellow; Glucose Urine UA Negative (Negative); Leukocyte Esterase Urine Large (3+) (Negative); Nitrite Urine Negative (Negative); PH 6.5 (5.0-9.0); UMIC TRIGGER UA YES; Urine Blood Negative (Negative); Urine Ketones Negative (Negative); Urine Protein Negative (Neg-Trace)
[2024-07-11 11:53] LABS: Anion Gap 11 (12-20); Blood Urea Nitrogen 29 mg/dL (9-16); Calcium 10.1 mg/dL (8.4-10.2); Carbon Dioxide 22 mmol/L (22-29); Chloride 113 mmol/L (96-108); Estimated Glomerular Filt Rate 46; Potassium 4.1 mmol/L (3.3-5.1); Sodium 142 mmol/L (135-145)
[2024-07-11 11:57] LABS: Bacteria Urine Trace (None Seen); RBC Urine 0-2 /HPF (0-2)
[2024-07-11 12:06] LABS: Cortisol Random 9.6 ug/dL
[2024-07-11 12:08] LABS: Creatinine Urine 170.09 mg/dL; Protein/Creatinine Ratio, Ur 0.05 (<0.2); Total Protein Urine Random 9 mg/dL (<12)
[2024-07-16 06:33] LABS: Metanephrine, Free <25 pg/mL (<=57); Normetanephrines, Free 158 pg/mL (<=148); Total Metanephrine, Free 158 pg/mL (<=205)
[2024-07-17 16:28] LABS: Renin 0.28 ng/mL/h (0.25-5.82)
[2024-07-19 13:27] LABS: Aldosterone/Renin Ratio 21.2 Ratio (0.9-28.9); Plasma Renin Activity 0.33 ng/mL/h (0.25-5.82)
== END 2024-07-11 10:40 | disposition home or self-care (01) ==
LOC: HO.LAB 10:39
PROVIDERS: PCP Internal Medicine Medical Oncology; Visit Provider Internal Medicine Nephrology
DX: N17.9 Acute kidney failure, unspecified (principal); I1A.0 Resistant hypertension
CPT/HCPCS: 36415; 80051; 81001; 82088; 82310; 82533; 82565; 82570; 83835; 84156; 84244; 84443; 84520

== ENCOUNTER 2024-07-18 14:45 | Outpatient (AMB) | payer MEDICARE, MEDICAID, SELFPAY ==
[2024-07-18 15:01] VITALS: BP 130/82; PULSE 82; O2SAT 96; BMI 46.4
--- NOTE | 2024-07-18 15:01 | HO.NEPHOV_ITS ---
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 Recently she had left-sided weakness and numbness and she was evaluated at [facility] and was found to have a small CVA. Her blood pressure had not been well controlled. She is now trying to control her blood pressure and also lose weight. She does use her CPAP every night. She has history of gastric bypass surgery. She is not a diabetic. She has been taking YOSEF inhibitor as well as nonsteroidal anti- inflammatories along with hydrochlorothiazide. Her urine output is good. She does not have any new joint swellings, epistaxis, photosensitivity, hematuria, flank pain, history of peripheral arterial disease, history of renal artery stenosis, nephrolithiasis, new skin rashes. Her serum creatinine has improved and stable [facility] Medical History (Updated 05/02/24 @ 15:25 by Da Raya MD) Chronic allergic rhinitis Laryngitis [id number] syndrome CVA (cerebral vascular accident) DEMI on CPAP Dyspnea Chest pressure Asthma Surgical History History of gastric bypass History of left knee surgery History of hysterectomy Family History Mother Breast cancer HTN (hypertension) Father Kidney disease HTN (hypertension) Maternal Uncle Diabetes Son Diabetes Social History Alcohol intake: never Patient Tobacco Use Status: Never used Tobacco Review of Systems Const All systems reviewed & are unremarkable except as noted in HPI and below Physical Exam Vital Signs: Last Vital Signs Pulse 82 07/18/24 15:01 BP 130/82 07/18/24 15:01 Pulse Ox 96 07/18/24 15:01 Oxygen Delivery Method Room Air 07/18/24 15:01 BMI result Body Mass Index 46.4 Const General: comfortable and no acute distress Orientation/consciousness: patient oriented x3 HEENT Head: Yes normocephalic Mouth: Normal oral and palatal mucosa present Eyes EOM: EOMs intact bilaterally Neck Neck: Yes supple Resp Auscultation: clear to auscultation bilaterally Cardio Jugular venous distension: no JVD Rate: regular rate GI Palpation (GI): Soft to palpation Auscultation: normal bowel sounds General: Yes no CVA tenderness Back/Spine/Pelvis Back: no CVA tenderness Skin General skin exam: no rashes or lesions noted Neuro General: patient oriented x3 and moves all extremities Extrem General: Yes no pedal edema Results Reviewed Nephrology Results: Hgb 10.8 g/dl (12.0-16.0) L 04/21/24 WBC 5.3 X10*3/uL (4.8-10.8) 04/21/24 Plt Count 218 X10*3/uL (160-400) 04/21/24 Sodium 142 mmol/L (135-145) 07/11/24 Potassium 4.1 mmol/L (3.3-5.1) 07/11/24 Chloride 113 mmol/L (96-108) H 07/11/24 Carbon Dioxide 22 mmol/L (22-29) 07/11/24 BUN 29 mg/dL (9-16) H 07/11/24 Creatinine 1.19 mg/dL (0.5-1.4) 07/11/24 Calcium 10.1 mg/dL (8.4-10.2) 07/11/24 Urine Protein Negative mg/dL (Neg-Trace) 07/11/24 Urine Creatinine 170.09 mg/dL 07/11/24 Protein/Creatinin Ratio 0.05 (<0.2) 07/11/24 Renal US 06/25/24 Assessment & Plan Assessment & Plan (1) Resistant hypertension: Code(s): I1A.0 - Resistant hypertension Category: Medical Plan Lynnette had RACHID most likely due to tubular injury which is resolving. She has been taking YOSEF inhibitor, diuretics and nonsteroidal anti-inflammatories same time. She might have had altered autoregulation of the kidney. Her urine output is good. There is no reason to suspect any obstructive uropathy. I asked her not to take nonsteroidal anti-inflammatories and maintain good hydration. Her blood pressure needs to be maintain a goal. I shall continue to optimize her medications to get her blood pressure to goal in her subsequent office visits. Renal USS and Doppler of renal arteries were unremarkable. All these have been explained in detail. Orders: Orders Blood Urea Nitrogen 6 Months I1A.0 - Resistant hypertension Creatinine 6 Months I1A.0 - Resistant hypertension Electrolytes 6 Months I1A.0 - Resistant hypertension Coding Level of Care Code Est Pt Level 4 (80722) Diagnoses Resistant hypertension I1A.0
== END 2024-07-18 15:18 | disposition home or self-care (01) ==
PROVIDERS: PCP Internal Medicine Medical Oncology; Visit Provider Internal Medicine Nephrology
DX: I1A.0 Resistant hypertension (principal)
CPT/HCPCS: 99214

== ENCOUNTER → 2024-07-18 14:45 | Outpatient (BNVA) | payer MEDICARE, MEDICAID, SELFPAY | PROVIDERS: PCP Internal Medicine Medical Oncology; Visit Provider Internal Medicine Nephrology | DX: I1A.0 Resistant hypertension (principal) | CPT/HCPCS: 99212 ==

== ENCOUNTER 2024-07-22 10:34 | Outpatient (REF) | payer MEDICARE, MEDICAID, SELFPAY ==
[2024-07-22 10:59] LABS: MANUAL DIFF FLAG NO
[2024-07-22 11:40] LABS: Basophils Absolute Auto 0.1 X10*3/uL (0.0-0.2); Basophils Percent Auto 1.6 % (0-2); Eosinophils Absolute Auto 0.2 X10*3/uL (0.0-0.4); Eosinophils Percent Auto 3.6 % (0-4); Hematocrit 36.8 % (37.0-47.0); Hemoglobin 11.4 g/dl (12.0-16.0); Imm Gran Abs Auto 0.02 X10*3/uL (0.00-0.03); Imm Gran Pct Auto 0.4 % (0.0-0.4); Lymphocytes Absolute Auto 2.3 X10*3/uL (1.2-4.9); Lymphocytes Percent Auto 41.5 % (20-40); Mean Corpuscular Hemoglobin 25.6 pg (27.0-33.0); Mean Corpuscular Volume 82.5 fL (80.0-98.0); Mean Platelet Volume 10.6 fL (9.4-12.3); Monocytes Absolute Auto 0.5 X10*3/uL (0.1-1.2); Monocytes Percent Auto 8.3 % (2-11); Neutrophils Absolute Auto 2.5 x10*3/uL (2.0-8.3); Neutrophils Percent Auto 44.6 % (45-73); Platelet Count 223 X10*3/uL (160-400); Red Blood Count 4.46 X10*6/uL (4.20-5.50); Red Cell Distribution Width 13.5 % (11.0-16.0); White Blood Count 5.6 X10*3/uL (4.8-10.8)
[2024-07-22 12:15] LABS: Alanine Aminotransferase 14 U/L (0-31); Albumin Level 4.2 g/dL (3.5-5.0); Alkaline Phosphatase 88 U/L (39-117); Anion Gap 10 (12-20); Aspartate Amino Transferase 18 U/L (5-31); Bilirubin Total 0.4 mg/dL (0.0-1.0); Blood Urea Nitrogen 29 mg/dL (9-16); Calcium 9.8 mg/dL (8.4-10.2); Carbon Dioxide 25 mmol/L (22-29); Chloride 112 mmol/L (96-108); Estimated Glomerular Filt Rate 37; Glucose Random 90 mg/dL (60-115); Potassium 4.1 mmol/L (3.3-5.1); Sodium 143 mmol/L (135-145)
== END 2024-07-22 10:35 | disposition home or self-care (01) ==
LOC: HO.LAB 10:34
PROVIDERS: PCP Internal Medicine Medical Oncology; Visit Provider Internal Medicine Medical Oncology
DX: E78.5 Hyperlipidemia, unspecified (principal); E66.01 Morbid (severe) obesity due to excess calories
CPT/HCPCS: 36415; 80053; 85025

== ENCOUNTER 2024-08-05 10:04 | Outpatient (AMB) | payer MEDICARE, MEDICAID, SELFPAY ==
[2024-08-05 10:06] VITALS: BP 122/70; PULSE 79; O2SAT 100
--- NOTE | 2024-08-05 10:06 | A.OFFVIS_ITS ---
Vital Signs 08/05/24 10:06 BP 122/70 Blood Pressure Location Rt radial Position Sitting Pulse 79 Pulse Source Pulse Oximeter Pulse Oximetry (%) 100 Oxygen Delivery Method Room Air Intake Visit Reasons: Asthma Allergies No Known Allergies Allergy (Verified 08/05/24 10:10) Medication List - Last Reconciled 08/05/24 by Olga Mujica LPN albuterol sulfate 2.5 mg (3 mL) inhalation Q4H PRN 30 days amlodipine 10 mg PO DAILY amoxicillin-pot clavulanate 875-125 mg 1 tab PO BID aspirin 81 mg PO DAILY bupropion HCl XL 300 mg PO DAILY cholecalciferol (vitamin D3) 50 mcg PO DAILY clopidogrel 75 mg PO DAILY CPAP (CPAP Machine/Device) As directed escitalopram oxalate 20 mg PO DAILY esomeprazole magnesium 40 mg PO DAILY fluticasone furoate-vilanterol 200-25 mcg/dose (Breo Ellipta) 1 inh inhalation DAILY 30 days fluticasone propionate 50 mcg/actuation 1 spray intranasal DAILY hydralazine 50 mg PO QID hydrochlorothiazide 25 mg PO DAILY hydroxyzine HCl 50 mg PO TID lisinopril 40 mg PO DAILY loratadine 10 mg PO DAILY 30 days meloxicam 15 mg PO DAILY metoprolol tartrate 50 mg PO BID montelukast 10 mg PO DAILY 30 days nebulizers As directed potassium chloride ER 10 mEq PO DAILY simvastatin 40 mg PO BEDTIME spironolactone 25 mg PO DAILY 90 days trazodone 100 mg PO BID HPI Comments Details: The patient is a 63-year-old woman with a known history of asthma in addition to obstructive sleep apnea. Recently she developed left-sided weakness and numbness and she was evaluated at [facility]. She was so she had a small CVA. She is now trying to control her blood pressure and also lose weight. In the meantime she does complaint of dyspnea on exertion also with chest heaviness. [id number] severity. It does take her between 3-5 minutes to recover from her ambulation. She has been using Breo for asthma with good effect. She also has a rescue inhaler that she uses at times but less than twice a week. In addition to that she does use her CPAP every night. CPAP therapy continues to be affecting beneficial. She feels the pressures are too long rather have the elevations in the pressures. I did request axis from her [employer] to get access in order to adjust the machine online. In the office we did have her go for 6 minutes walk test. She did not desaturate heart rate went up to 102. During the ambulation she did complaint of chest heaviness and therefore had to stop. Her symptoms resolved after stopping. I did inform her that I did think cardiology consultation be warranted at this time specially with her recent CVA in her increase cardiovascular risk factors. Were also optimize respiratory therapy and also try to optimize her PAP therapy. 07/13/2023 the patient is here for pulmonary follow-up visit. Overall she is doing well. She is losing weight and she is motivated. In addition to that she has gotten relief from her Breo inhaler. She has not require her short-acting beta agonist. We did review her pulmonary function studies demonstrating normal lung capacity and normal lung mechanics. Does have a component of small airways disease which is likely from the asthma. Regards to the CPAP the CPAP therapy continues to be affecting beneficial. She continues using more than 4 hours a night. Her major complaint is chronic cough and some constant clearing of the throat which she feels that she has fullness in secretions. Explained to her that is likely from an upper airway cough syndrome in nasal congestion. We will optimize her nasal therapy. If however the patient has no improvement then an ENT evaluation. 01/30/2024 the patient is here for a pulmonary follow-up visit. She still complaining of nasal congestion postnasal drip. Recently she was sick and she had to go to see her primary care and she was prescribed antibiotics for likely sinusitis. She did get better although she still feels congested. In addition to that because of the postnasal drip in the cough is hard for her to tolerate her CPAP. She does use her CPAP and she does try to use more than 4 hours a night. CPAP therapy has been affecting beneficial. She needs to get supplies f rom the [employer]. Therefore, will go ahead and treat her more effectively for her sinusitis and hopefully subside the cough in order for her to tolerate her CPAP better. 08/05/2024 the patient is here for a pulmonary follow-up visit. She has had some difficulties lately. She has been having increasing shortness of breath. Also complaining of sinus pressure congestion. She started developing some ulcerations to the nares proximally on the outer part and also in the inner part. They have been difficult to heal. They keep crusting over and they are very painful. Very hard for her to put on her CPAP mask with those painful areas. Appears to be a localized infection at this time likely bacterial. She also has significant nasal congestion. Consistent with sinusitis. Therefore will go ahead and treated for that. Her primary care doctor did request a ENT consultation will be helpful as well. Will go ahead and treated with Bactroban and also doxycycline. The patient also could try Afrin for 5 days no more in order to try to open up her nasal passages. The patient needs to make sure to continue her respiratory medications and will go ahead and optimize them by sw itching her over to Trelegy which she can use it once daily and then her rescue inhaler as needed. Hopefully she can feel better she can start using her CPAP that she really needs. Will follow-up in 6 months if the patient is no better she can always call for an earlier assessment. 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 CVA (cerebral vascular accident) DEMI on CPAP Dyspnea Chest pressure Asthma Surgical History History of gastric bypass History of left knee surgery History of hysterectomy Family History Mother Breast cancer HTN (hypertension) Father Kidney disease HTN (hypertension) Maternal Uncle Diabetes Son Diabetes Social History Alcohol intake: never Patient Tobacco Use Status: Never used Tobacco Review of Systems Const Reports fatigue, Denies fever(s), Denies night sweats and Reports weight loss ENT Denies change in voice, Denies lip swelling, Denies mouth pain, Reports nasal congestion, Reports nasal discharge, Reports nasal obstruction, Reports nasal trauma, Reports post nasal drip, Reports sinus pain, Reports sinus pressure and Denies tongue swelling Card Denies chest pain and Reports dyspnea on exertion Resp Reports cough and Reports dyspnea on exertion GI Denies abdominal pain Musc Denies no additional complaints Neuro Denies Neuro-related abnormal movements Psych Denies no additional complaints Endo Reports fatigue Dillon/Lymph Denies easy bleeding and Denies lymphadenopathy Aller/Immun Denies lip swelling and Denies tongue swelling Physical Exam Vital Signs: Last Vital Signs Pulse 79 08/05/24 10:06 BP 122/70 08/05/24 10:06 Pulse Ox 100 08/05/24 10:06 Oxygen Delivery Method Room Air 08/05/24 10:06 Const General: alert Neck Neck: Yes normal visual inspection, Yes full ROM and Yes no lymphadenopathy Chest Chest palpation & inspection: normal inspection of the chest Resp Auscultation: diminished lung sounds Cardio Rate: regular rate Rhythm: regular rhythm Heart sounds: S1 normal heart sound present and S2 normal heart sound present GI Palpation (GI): Soft to palpation and nontender Auscultation: normal bowel sounds Skin General skin exam: rashes and/or lesions noted Assessment & Plan Assessment & Plan (1) DEMI on CPAP: Code(s): G47.33 - Obstructive sleep apnea (adult) (pediatric); Z99.89 - Dependence on other enabling machines and devices Category: Medical (2) Asthma: Code(s): J45.909 - Unspecified asthma, uncomplicated Category: Medical Qualifiers: Asthma complication type: uncomplicated Asthma persistence: persistent Asthma severity: moderate Qualified Code(s): J45.40 - Moderate persistent asthma, uncomplicated (3) Dyspnea: Code(s): R06.00 - Dyspnea, unspecified Category: Medical Qualifiers: Dyspnea type: dyspnea on exertion Qualified Code(s): R06.00 - Dyspnea, unspecified (4) Sinusitis: Code(s): J32.9 - Chronic sinusitis, unspecified Category: Medical Qualifiers: Chronicity: subacute Sinusitis location: unspecified location Qualified Code(s): J01.90 - Acute sinusitis, unspecified (5) Chronic allergic rhinitis: Code(s): J30.9 - Allergic rhinitis, unspecified Category: Medical Plan stop Breo stop Incruse start Trelegy OWEN as needed neti bottle daily start Afrin x 5 days continue Astelin nasal spray continue singulair continue Claritin start Doxycycline start bactroban ointment HOB elevated continue CPAP therapy, adjusted nebulizer follow-up in 4-6 months Medications: New mupirocin 2% 1 appl topical BID 22 grams 0RF 7 days doxycycline monohydrate 100 mg PO BID 28 tabs 0RF 14 days gmmdwdffnxn-fehvqlbwy-rbpozqmg 200-62.5-25 mcg (Trelegy Ellipta) 1 inh inhalation DAILY 60 ea 12RF 30 days albuterol sulfate 90 mcg/actuation 2 inhalations inhalation Q6H PRN 18 grams 12RF shortness of breath or wheezing 30 days J44.9 - Chronic obstructive pulmonary disease, unspecified, J45.909 - Unspecified asthma, uncomplicated oxymetazoline 0.05% (Afrin (oxymetazoline)) 2 sprays intranasal Q12H PRN 22 mL 0RF nasal congestion 5 days methylprednisolone (Medrol (Coleman)) PO PER PKG DIR 21 ea 0RF 6 days albuterol sulfate 90 mcg/actuation 2 inhalations inhalation Q6H PRN 18 grams 12RF shortness of breath or wheezing 30 days J44.9 - Chronic obstructive pulmonary disease, unspecified Refilled albuterol sulfate 2.5 mg (3 mL) inhalation Q4H PRN 90 mL 11RF shortness of breath or wheezing 30 days J45.40 - Moderate persistent asthma, uncomplicated, R06.00 - Dyspnea, unspecified Coding Level of Care Code Est Pt Level 4 (42525) Diagnoses DEMI on CPAP G47.33; Z99.89 Moderate persistent asthma without complication J45.40 Asthma complication type: uncomplicated Asthma persistence: persistent Asthma severity: moderate Dyspnea on exertion R06.00 Dyspnea type: dyspnea on exertion Subacute sinusitis, unspecified location J01.90 Chronicity: subacute Sinusitis location: unspecified location Chronic allergic rhinitis J30.9 Time Spent (min) 17
== END 2024-08-05 10:24 | disposition home or self-care (01) ==
LOC: HO.HPS 10:04
PROVIDERS: PCP Internal Medicine Medical Oncology; Visit Provider Hospitalist
DX: G47.33 Obstructive sleep apnea (adult) (pediatric) (principal); Z99.89 Dependence on other enabling machines and devices; J45.40 Moderate persistent asthma, uncomplicated; R06.00 Dyspnea, unspecified; J01.90 Acute sinusitis, unspecified; J30.9 Allergic rhinitis, unspecified
CPT/HCPCS: 99214

== ENCOUNTER → 2024-08-05 10:04 | Outpatient (BNVA) | payer MEDICARE, MEDICAID, SELFPAY | PROVIDERS: PCP Internal Medicine Medical Oncology; Visit Provider Hospitalist | DX: J44.9 Chronic obstructive pulmonary disease, unspecified (principal); J30.9 Allergic rhinitis, unspecified; J01.90 Acute sinusitis, unspecified; J45.40 Moderate persistent asthma, uncomplicated; G47.33 Obstructive sleep apnea (adult) (pediatric); R06.00 Dyspnea, unspecified; Z99.89 Dependence on other enabling machines and devices; Z86.73 Personal history of transient ischemic attack (TIA), and cerebral infarction without residual deficits | CPT/HCPCS: 99212 ==

== ENCOUNTER 2024-08-25 10:36 | Outpatient (AMB) | payer MEDICARE, MEDICAID, SELFPAY ==
[2024-08-25 10:38] VITALS: BP 130/64; PULSE 99; BMI 46.4
--- NOTE | 2024-08-25 10:38 | MHC.OFFVIS ---
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 Required: No Accompanied by: Self / Same As Patient Allergies No Known Allergies Allergy (Verified 08/05/24 10:10) Medication List - Last Reconciled 08/25/24 by Alcon Villalobos MD albuterol sulfate 2.5 mg (3 mL) inhalation Q4H PRN 30 days albuterol sulfate 90 mcg/actuation 2 inhalations inhalation Q6H PRN 30 days amlodipine 10 mg PO DAILY aspirin 81 mg PO DAILY bupropion HCl XL 300 mg PO DAILY cholecalciferol (vitamin D3) 50 mcg PO DAILY clopidogrel 75 mg PO DAILY CPAP (CPAP Machine/Device) As directed doxycycline monohydrate 100 mg PO BID 14 days escitalopram oxalate 20 mg PO DAILY esomeprazole magnesium 40 mg PO DAILY fluticasone furoate-vilanterol 200-25 mcg/dose (Breo Ellipta) 1 inh inhalation DAILY 30 days fluticasone propionate 50 mcg/actuation 1 spray intranasal DAILY qdjctkkxcia-neuxukltr-ltcxtxfn 200-62.5-25 mcg (Trelegy Ellipta) 1 inh inhalation DAILY 30 days hydralazine 50 mg PO QID hydrochlorothiazide 25 mg PO DAILY hydroxyzine HCl 50 mg PO TID lisinopril 40 mg PO DAILY loratadine 10 mg PO DAILY 30 days meloxicam 15 mg PO DAILY metoprolol tartrate 50 mg PO BID montelukast 10 mg PO DAILY 30 days mupirocin 2% 1 appl topical BID 7 days nebulizers As directed oxymetazoline 0.05% (Afrin (oxymetazoline)) 2 sprays intranasal Q12H PRN 5 days potassium chloride ER 10 mEq PO DAILY simvastatin 40 mg PO BEDTIME spironolactone 25 mg PO DAILY 90 days trazodone 100 mg PO BID HPI Comments Details: 63-year-old female here for follow-up. She was seen for hypertension previously and her blood pressure has improved on the current medication regimen. She also had exertional chest discomfort for which she underwent cardiac catheterization which did not show any significant coronary artery disease. She has morbid obesity and underwent bariatric surgery. She has lost approximately 90+ lb at this point. She is here for follow-up. She is denying any chest discomfort shortness of breath. Her main complaint is left shoulder pain. 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 She is saying she underwent physiotherapy but there has not been any significant improvement in the shoulder. Blood pressure control is good. Taking medications regularly. 04/23/23: Today she returns for follow-up. She is status post bariatric surgery and continues to lose weight. She has no chest discomfort shortness of breath. She is saying her asthma is under control. She has been experiencing some episodes of dizziness which she describes as lightheadedness. These episodes happen when she is standing or sitting for long time. She feels hot and flushed and starts feeling lightheaded. She is saying she drinks lot of water and tries to hydrate herself. She has never had vasovagal syncope or fainting episodes before. 10/15/2023: She returns for follow-up. She is status post bariatric surgery and was losing weight but unfortunately due to stress he started eating more junk food and has gained some weight now. On last visit blood pressure was mildly elevated but she was complaining of some dizziness and we decided not to increase her medications. On follow-up her blood pressure is higher. She is saying that she has gained some weight also. She has seeing a therapist to see how to cope with stress because she overeats whenever she is under stress. Taking medications regularly. She is on Plavix for previous TIA. Occasionally she feels left side is facial tingling. 12/12/23: She returns for follow-up. She continues to have significantly elevated blood pressure despite being on multiple medication. She was started hydrochlorothiazide last time. She is saying that she has changed her diet and is again beginning to lose some weight. She has lost 3 lb compared to 10/15/2023. Also complaining of some shortness of breath. She is saying shortness of breath can even happen sitting down. Previously had TIA and has been on Plavix. 04/21/2024: She is here for follow-up. She is taking amlodipine 10 mg, hydralazine 50 mg 4 times a day, hydrochlorothiazide 25 mg daily, lisinopril 40 mg daily, metoprolol tartrate 50 mg twice a day and spironolactone 25 mg daily. Her blood pressure in the office today is 130/70. She has been taking medications regularly. Denying any chest discomfort shortness of breath. Previously had TIA and has been on Plavix 75 mg daily. No further neurological complaints from her. She is watching her diet and has lost weight and has lost 6 lb since 02/18/2024. 08/25/2024: She is here for follow-up. Blood pressure is well controlled on multiple medicines right now. She has been exercising and losing weight again. She has been on aspirin and Plavix with previous history of TIA. [facility] Medical History (Updated 05/02/24 @ 15:25 by Da Raya MD) Chronic allergic rhinitis Laryngitis [id number] syndrome CVA (cerebral vascular accident) DEMI on CPAP Dyspnea Chest pressure Asthma Surgical History History of gastric bypass History of left knee surgery History of hysterectomy Family History Mother Breast cancer HTN (hypertension) Father Kidney disease HTN (hypertension) Maternal Uncle Diabetes Son Diabetes Social History Alcohol intake: never Patient Tobacco Use Status: Never used Tobacco Review of Systems Const Denies chills, Denies fatigue, Denies fever(s), Denies frequent falls, Denies weakness, Denies weight gain and Denies weight loss ENT Denies dizziness Card Denies chest pain, Denies leg edema, Denies lightheadedness, Denies palpitations, Denies dyspnea and Denies dyspnea on exertion Resp Denies cough, Denies dyspnea and Denies dyspnea on exertion GI Denies hematochezia Musc Denies abnormal gait, Denies muscle weakness, Denies numbness, Denies radiating pain into limb and Denies tingling Neuro Denies abnormal gait, Denies dizziness, Denies frequent falls, Denies numbness, Denies tingling and Denies weakness Endo Denies fatigue and Denies palpitations Physical Exam Vital Signs: Last Vital Signs Pulse 99 08/25/24 10:38 BP 130/64 08/25/24 10:38 BMI result Body Mass Index 46.4 GENERAL APPEARANCE: in no acute distress, obese. NECK/THYROID: no carotid bruit, no jugular venous distention. SKIN: no suspicious lesions, warm and dry. HEART: no murmurs, regular rate and rhythm, S1, S2 normal. LUNGS: clear to auscultation bilaterally. ABDOMEN: normal, bowel sounds present, soft, nontender, nondistended. EXTREMITIES: no clubbing, cyanosis. PERIPHERAL PULSES: equal. NEUROLOGIC: alert and oriented. Assessment & Plan Assessment & Plan (1) Resistant hypertension: Code(s): I1A.0 - Resistant hypertension Category: Medical (2) TIA (transient ischemic attack): Code(s): G45.9 - Transient cerebral ischemic attack, unspecified Category: Medical Plan Pleasant 63 year female who is here for follow-up. She has resistant hypertension. Blood pressure is improving on current regimen. She is watching her diet again and losing weight. She had a normal renal duplex scan in 2020. She had TIA before and has been on aspirin and Plavix since then. She had gastric bypass and I have advised her that at this stage she should stop aspirin and just take Plavix monotherapy. She will see us back in 4 months. Thank you for allowing me to participate in the care of your patient. Please feel free to contact me if you have any questions. Coding Level of Care Code Est Pt Level 4 (96951) Diagnoses Resistant hypertension I1A.0 TIA (transient ischemic attack) G45.9
== END 2024-08-25 10:59 | disposition home or self-care (01) ==
PROVIDERS: PCP Internal Medicine Medical Oncology; Visit Provider Internal Medicine Cardiovascular Disease
DX: I1A.0 Resistant hypertension (principal); G45.9 Transient cerebral ischemic attack, unspecified
CPT/HCPCS: 99214

== ENCOUNTER → 2024-08-25 10:36 | Outpatient (BNVA) | payer MEDICARE, MEDICAID, SELFPAY | PROVIDERS: PCP Internal Medicine Medical Oncology; Visit Provider Internal Medicine Cardiovascular Disease | DX: I1A.0 Resistant hypertension (principal); G45.9 Transient cerebral ischemic attack, unspecified | CPT/HCPCS: 99212 ==

== ENCOUNTER 2024-12-08 11:07 | Outpatient (AMB) | payer MEDICARE, MEDICAID, SELFPAY ==
--- NOTE | 2024-12-08 11:11 | HO.SPINEOV ---
Vital Signs 12/08/24 11:19 Height 5 ft 5 in Weight 278 lb BMI 46.3 Intake Visit Reasons: lower back pain- left leg numbness Intake Note: Ms. Mcgill is here today c/o low back pain and left leg numbness. Clerical Adviser Required: No Allergies No Known Allergies Allergy (Verified 08/05/24 10:10) Physical Exam Vital Signs: BMI result Body Mass Index 46.3 Assessment & Plan Assessment & Plan (1) Lumbar radiculopathy: Code(s): M54.16 - Radiculopathy, lumbar region Category: Medical Plan Dear Yan, Thank you for referring Mrs Mcgill to our office today. She is a very nice 64-year-old female presents to the office today for evaluation of left-sided low back pain radiating down into her left buttock and left hamstring into her calf. It seems to be more on the back side of her calf. It is aggravated with standing walking but it is also present when she is seated. She has a lot of trouble standing for more than 5 minutes. She has had this pain for many years, has generally treated it conservatively with things like physical therapy, chiropractic cortisone injections etc.. She used to have injections done here at [facility] but ultimately ended up getting them done at your office as well. She admits that they never really help much. Recently had an L5 and an S1 TFE that did not help her at all. She was taking Tylenol and Motrin. Somehow I think her kidneys were affected by a medication so she had to discontinue the anti-inflammatories. She is currently very frustrated with her quality of life. She did see a surgeon at 1 point at [facility] but was told because of her obesity she would not be a candidate for surgery. There is no weakness of the foot. No cauda equina symptoms. She had an MRI done at [facility] showing degenerative disc disease at L5-S1 with neuroforaminal narrowing and facet arthropathy. PMH: Morbid obesity, she currently has a BMI of 46, she did undergo a sleeve gastrectomy about 3 years ago or so in his lost 30 lb. Previous history of stroke related to elevated blood pressure with resolution of symptoms and deficits. She remains on Plavix with a history of stroke. She continues to cadet with refractory hypertension despite being on multiple medications. History of asthma, hysterectomy, sinusitis, sleep apnea. Denies any history of cardiac disease, major pulmonary issues, liver disease, cancer, coagulopathies. Social hx: She has not smoke, drink use any recreational drugs Medications: Albuterol, amlodipine, bupropion, vitamin D3, Plavix, escitalopram, esomeprazole, Flonase, Breo Ellipta, hydralazine, hydroxyzine, lisinopril, loratadine, metoprolol, Singulair, nebulizers, potassium, simvastatin, spironolactone, trazodone Allergies: None Physical exam: Morbidly obese female, BMI of 46, she is able to stand up out of a chair, getting on the examining table independently, strength and reflexes normal. Imaging review: She is a lumbar MRI done at [facility] showing moderate degenerative disc disease at L5-S1, the radiologist reports significant neuroforaminal narrowing bilaterally, but to me it looks moderate at worst with no signs of nerve compression seen on the axial imaging. Impression: 64-year-old morbidly obese female, history of TIA on Plavix, BMI 46, presents with left-sided low back pain radiating down her left leg possibly consistent with an L5 or an S1 dermatome. She has been through numerous rounds of conservative treatment as outlined above. The challenge here is that her imaging is not showing a profound amount of compression at L5-S1 where the radiologist reports she has degeneration and she has not responded to the injections that were done in this area to give her any relief. Therefore I am not sure if the findings on the MRI have anything to do with her symptoms. I will review with Dr. Shaffer to see if he thinks this is something that raises to the level of surgery. Thank you for allowing us to care for your patient. The total time spent with this visit with this patient was 45 minutes reviewing history, physical exam, lumbar imaging review, and implementation of treatment plan or further diagnostic testing Wei Shaffer MD,PhD [facility] Coding Level of Care Code New Pt Level 4 (95122) Diagnoses Lumbar radiculopathy M54.16
[2024-12-08 11:19] VITALS: BMI 46.3
--- OUTSIDE RECORDS SUMMARY | 2024-12-08 12:36 | XMS_ITS | Data Portability ---
Author Organization [place] - [facility] Formerly [facility], Allergy Address [address] [address] Care Team Providers Care Tank Maker Wood Name Role Phone GHAZALA COX Primary Care Provider Assessment Encounter Date Assessment Date Assessment LastModified by Organization Details LastModified Time 09/19/2024 09/19/2024 63 year old female presents reporting left sided nasal congestion and left maxillary sinus pressure since March. She reports postnasal drip that causes her to cough. She brings up clear mucus. She has tried antibiotics and steroids with no improvement. She uses Flonase and Claritin daily. She tried a three day course of Afrin with no improvement. She has somewhat poor dentition but no tenderness on exam at the left upper molars. Left maxillary osteum is open on nasal endoscopy. No polyps or purulence. Given that her symptoms have persisted for six months I have ordered a CT of her sinuses. I have also ordered allergy testing. She will follow up to review the results. Patient was seen and examined by Dr. Rivera. Lilliam Velazquez PA-C functioned as a scribe for this visit. Not available 09/19/2024 12:32:10 11/04/2024 11/04/2024 63 year old female presents to review CT sinus which was performed at [facility] 10/07/24. Reviewed with the patient that the scan showed no evidence of sinus disease. I am glad to hear that her facial pain is improving. She will follow up for allergy testing. Not available 11/04/2024 15:35:35 Plan of Treatment Reminders Order Date Submit Date Provider Last Modified By Organization Details Last Modified Time Details Appointments Test Results 15 2024 08:30A M FER BAE MD Not available Not available Not available Lab None recorded. Referral None recorded. Procedures allergy testing, skin prick (PROC) 2023 024 [email or web address] Not available 10/28/2024 11:20:14 intraderm al allergy skin testing (PROC) 2023 024 [email or web address] Not available 10/28/2024 11:20:14 pulmonary function test procedure (PROC) 2023 024 [email or web address] Not available 10/28/2024 11:20:14 pulse oximetry (PROC) 2023 024 [email or web address] Not available 10/28/2024 11:20:14 Surgeries None recorded. Imaging CT, maxillofa cial, w/o contrast 2023 [email or web address] [facility] [place], [facility], [address], [place], [address], 10/08/2024 15:43:52 Medication Orders None recorded. Patient TargetsNo targets recorded. Patient Instructions Encounter Date Encounter Id Patient Instructions Last Modified By Organization Details Last Modified Time 11/12/2024 [id number] Nursing Documentation for Allergy Testing: Ordering Provider {{Dr. Ce Rivera*}} Weight:lbs:? ? ?275kg: ? ? ? PFT {{Yes* no}} With Bronchodilator {{Yes no*}} Dr. mi needed to proceed with allergy testing? {{Yes* No}} {{Dr. Ce Hernandez* Dr. Patrick Rivera}} ok'd testing {{Yes No Pulmonary Clearance PCP Clearance RAST*}}H istory of Asthma:{{Yes* No}} Asthma Meds:breo, incruse, montelukast ? ? ?Last used:? ? ? Asthma exacerbated by: ? ? ? Chance that : {{Yes No* Not Sure N/A}} Fear of needles: {{Yes* No}} Regular medications reviewed in Computer: {{Yes* No}} Medication allergies: {{Reviewed NKDA*}} Antihistamine use: {{Yes No*}} Medications used: ? ? ? Food Allergies: ? ? ? tomatoes and watermelon Any foods make your mouth feeling itchy: {{Yes* No}} If yes:cantelope and tomato gives bumps ? ? ? History of severe reaction where had to go to ER? {{Yes No*}} If yes details: ? ? ? Type of heat in home: {{Baseboard Forced Air* Radiator othe r}} Pets: {{Yes No*}} If yes: ? ? ? Smoker: {{Yes Current Never Form er}} If former smoker-how much ? ? ?5 / day for how long 10 yrs ? ? ? When quit 20 yrs ? ? ? years ago Smoking now-how much ? ? ? /day for how long ? ? ? Occupation/Social History: ? ? ? Symptoms having: {{Congestion* Post Nasal Drip Headache Runn y Nose Cough Other}} If other: ? ? ? Frequency {{Seasonally Year Round*}} Spirometry Contraindications: Heart attack in the last 3 months: {{Yes No*}} Major surgery in last 3 months: {{Yes No*}} Detached retina(serious eye issues) in last 2 months: {{Yes No*}} Hospitilization in last month: {{Yes No*}} Proceed with PFT {{Yes* No}} approval needed: {{Yes No*}} Nursing Notes: Pt tolerated test well {{Yes No n/a#}} Benadryl cream to test sites {{Yes No n/a#}} Patient became syncopal-placed in supine position {{Yes No n/a#}} Large reactions to MQT, reschedule IDT for a different date {{Yes No n/a#}} Other: Pt presents for allergy testing. Due to elevated bp due to holding her beta ghislaine and other 3 meds and having poor pfts Dr. Hernandez wanted pt to have RAST and to follow up with Dr. Rivera to figure out next steps ? ? ? Written by: {{Sylvia Carpenter, KOSTAS Solares, A* Rosario Wilcox}} [email or web address] Not available 11/12/2024 10:43:53 Reason for Referral None Reported. Results Created Date Observation Date Name Description Value Unit Range Abnormal Flag Note LastModifiedBy Organization Detail LastModifiedTime 11/12/1911/12/2024 ALLER GENS, ZONE 1 class description Commen t Level s of Speci fic IgE Class Descr iptio n of Class ----- ----- ----- ----- ----- -- ----- ----- ----- ----- ----- < 0.10 0 Negat elayne 0.10 - 0.31 0/I Equiv ocal/ Low 0.32 - 0.55 I Low 0.56 - 1.40 II Moder ate 1.41 - 3.90 III High 3.91 - 19.00 IV Very High 19.01 - 100.0 0 V Very High >100. 00 Very High Not Available [facility] ([place] [email or web address]) [address] [place], [address], 11/14/2024 12:20:42 11/12/19 25 11/14/2024 ALLER GENS, ZONE 1 P720-HsV D pteronyssinu s <0.10 kU/L class 0 Not Available [facility] ([place] [email or web address]) [address] [place], [address], 11/14/2024 12:20:42 11/12/19 25 11/14/2024 ALLER GENS, ZONE 1 J200-BfP D farinae <0.10 kU/L class 0 Not Available [facility] ([place] [email or web address]) [address] [place], [address], 11/14/2024 12:20:42 11/12/19 25 11/14/2024 ALLER GENS, ZONE 1 L157-VlI CAT dander <0.10 kU/L class 0 Not Available [facility] ([place] [email or web address]) [address] [place], [address], 11/14/2024 12:20:42 11/12/19 25 11/14/2024 ALLER GENS, ZONE 1 F251-SmB dog dander <0.10 kU/L class 0 Not Available [facility] ([facility]) [address] [facility], [place], [address], 11/14/2024 12:20:42 11/12/19 25 11/14/2024 ALLER GENS, ZONE 1 i043-UhO bermuda grass <0.10 kU/L class 0 Not Available [facility] ([facility]) [address] [facility], [place], [address], 11/14/2024 12:20:42 11/12/19 25 11/14/2024 ALLER GENS, ZONE 1 u422-SoV bluegrass, jannie 0.14 kU/L class 0/I abnormal Not Available [facility] ([facility]) [address] [place], [address], 11/14/2024 12:20:42 11/12/19 25 11/14/2024 ALLER GENS, ZONE 1 o619-GnU bahia grass <0.10 kU/L class 0 Not Available [facility] ([facility]) [address] [place], [address], 11/14/2024 12:20:42 11/12/19 25 11/14/2024 ALLER GENS, ZONE 1 N011-HrZ cockroach, colombian <0.10 kU/L class 0 Not Available [facility] ([facility]) [address] [place], [address], 11/14/2024 12:20:42 11/12/19 25 11/14/2024 ALLER GENS, ZONE 1 E789-ZeS penicillium chrysogen <0.10 kU/L class 0 Not Available [facility] ([facility]) [address] [place], [address], 11/14/2024 12:20:42 11/12/19 25 11/14/2024 ALLER GENS, ZONE 1 U236-MbJ cladosporium herbarum <0.10 kU/L class 0 Not Available [facility] ([facility]) [address] [facility] [place], [address], 11/14/2024 12:20:42 11/12/19 25 11/14/2024 ALLER GENS, ZONE 1 U821-HrE aspergillus fumigatus <0.10 kU/L class 0 Not Available [facility] ([facility]) [address] [place], [address], 11/14/2024 12:20:42 11/12/19 25 11/14/2024 ALLER GENS, ZONE 1 P597-AoL mucor racemosus <0.10 kU/L class 0 Not Available [facility] ([facility]) [address] [facility] [place], [address], 11/14/2024 12:20:42 11/12/19 25 11/14/2024 ALLER GENS, ZONE 1 G955-TqS alternaria alternata <0.10 kU/L class 0 Not Available [facility] ([facility]) [address] [place], [address], 11/14/2024 12:20:42 11/12/19 25 11/14/2024 ALLER GENS, ZONE 1 Y756-TmA stemphylium herbarum <0.10 kU/L class 0 Not Available [facility] ([facility]) [address] [place], [address], 11/14/2024 12:20:42 11/12/19 25 11/14/2024 ALLER GENS, ZONE 1 J054-LiQ common silver birch 0.12 kU/L class 0/I abnormal Not Available [facility] ([facility]) [address] [place], [address], 11/14/2024 12:20:42 11/12/19 25 11/14/2024 ALLER GENS, ZONE 1 X038-AxD oak, white <0.10 kU/L class 0 Not Available [facility] ([place] [facility]) [address], [place], [address], 11/14/2024 12:20:42 11/12/19 25 11/14/2024 ALLER GENS, ZONE 1 Q133-XjQ elm, colombian <0.10 kU/L class 0 Not Available [facility] ([place] [facility]) [address], [place], [address], 11/14/2024 12:20:42 11/12/19 25 11/14/2024 ALLER GENS, ZONE 1 X275-RxC carmelita, white <0.10 kU/L class 0 Not Available [facility] ([place] [facility]) [address], [place], [address], 11/14/2024 12:20:42 11/12/19 25 11/14/2024 ALLER GENS, ZONE 1 C822-RjX maple/box elder <0.10 kU/L class 0 Not Available [facility] ([place] [facility]) [address], [place], [address], 11/14/2024 12:20:42 11/12/19 25 11/14/2024 ALLER GENS, ZONE 1 A823-OdI hazelnut tree <0.10 kU/L class 0 Not Available [facility] ([place] [facility]) [address], [place], [address], 11/14/2024 12:20:42 11/12/19 25 11/14/2024 ALLER GENS, ZONE 1 W543-KlM hickory, white <0.10 kU/L class 0 Not Available [facility] ([place] [facility]) [address] [facility], [place], [address], 11/14/2024 12:20:42 11/12/19 25 11/14/2024 ALLER GENS, ZONE 1 N198-KtZ white mulberry <0.10 kU/L class 0 Not Available [facility] ([place] [facility]) [address] [facility], [place], [address], 11/14/2024 12:20:42 11/12/19 25 11/14/2024 ALLER GENS, ZONE 1 E096-HhX cedar, mountain <0.10 kU/L class 0 Not Available [facility] ([place] [facility]) [address] [facility], [place], [address], 11/14/2024 12:20:42 11/12/19 25 11/14/2024 ALLER GENS, ZONE 1 I201-RjN ragweed, short 0.21 kU/L class 0/I abnormal Not Available [facility] ([place] [email or web address]) [address] [facility], [place], [address], 11/14/2024 12:20:42 11/12/19 25 11/14/2024 ALLER GENS, ZONE 1 W025-ZyT mugwort <0.10 kU/L class 0 Not Available [facility] ([place] [facility]) [address] [facility], [place], [address], 11/14/2024 12:20:42 11/12/19 25 11/14/2024 ALLER GENS, ZONE 1 B270-DrY plantain, estonian <0.10 kU/L class 0 Not Available [facility] ([place] [facility]) [address] [facility] [place], [address], 11/14/2024 12:20:42 11/12/19 25 11/14/2024 ALLER GENS, ZONE 1 I708-AjY pigweed, common <0.10 kU/L class 0 Not Available [facility] ([place] [facility]) [address] [facility] [place], [address], 11/14/2024 12:20:42 11/12/19 25 11/14/2024 ALLER GENS, ZONE 1 K198-PeN sheep sorrel <0.10 kU/L class 0 Not Available [facility] ([place] [facility]) [address] [facility] [place], [address], 11/14/2024 12:20:42 11/12/19 25 11/14/2024 ALLER GENS, ZONE 1 S572-QzK nettle <0.10 kU/L class 0 Not Available [facility] ([facility]) [address] [facility], [place], [address], 11/14/2024 12:20:42 11/12/19 25 11/14/2024 IMMUN OGLOB ULIN E, TOTAL immunoglobul in E, total 2 IU/mL 6-495 below low normal Not Available [facility] ([facility]) [address] [facility], [place], [address], 11/14/2024 12:20:42 10/08/19 25 10/07/2024 CT, maxil lofac ial, w/o contr ast No observ ation record ed. [email or web address] [facility] [place] [address], [address], 10/09/2024 09:16:23 10/08/19 25 10/07/2024 CT, maxil lofac ial, w/o contr ast No observ ation record ed. [email or web address] [facility] [place] [address], [address], 10/09/2024 09:16:23 10/08/19 25 10/07/2024 CT, maxil lofac ial, w/o contr ast No observ ation record ed. BARCODE [facility] [place] [address], [address], 10/08/2024 16:03:22 11/12/19 25 mary metry testi ng* No observ ation record ed. [email or web address] Not Available 2024 18:02:42 Result Notes None recorded. Problems Name Problem SNOMED Code Status Onset Date Resolution Date Notes Provider Name and Address Organization Details Recorded Time Severe obesity 51818785716 104 Active 2020 Morbid (severe) obesity due to excess calories; Note: Date Diagnosed : 06/16/2021 11:31 AM (E66.01) Not Available [facility] 4 03:25:06 Obstructi ve sleep apnea syndrome 93655379 Active 2020 Obstructi ve sleep apnea (adult) (pediatri c); Note: Date Diagnosed : 06/16/2021 11:31 AM (G47.33) Not Available [facility] 4 03:25:07 Uncomplic ated asthma 272876528 Active 2020 Unspecifi ed asthma, uncomplic ated; Note: Date Diagnosed : 06/16/2021 11:31 AM (J45.909) Not Available [facility] 4 03:25:07 Allergic rhinitis caused by pollen 37695332 Active 2020 Allergic rhinitis due to pollen; Note: Date Diagnosed : 06/16/2021 11:31 AM (J30.1) Not Available [facility] 4 03:25:06 Chronic sinusitis 85398500 Active 2023 LILLIAM VELAZQUEZ PA-C [address], [place], [address] , [facility] - [facility] Former[facility] 4 11:00:07 Atypical facial pain 34041491 Active 2024 LILLIAM VELAZQUEZ PA-C [address], [place], [address] , [facility] - [facility] [place] 5 15:35:35 Allergic rhinitis 70189015 Active 2024 [facility] [address], [place], [address] , [facility] - [facility] [place] 5 09:19:15 Problem Notes None recorded. Procedures Surgical History Date Name Laterality Status Provider Name and Address Organization Details Recorded Time 4 JMSNasal/Sinus Endoscopy completed LILLIAM VELAZQUEZ PA-C [address], [place], [address], [facility] - [facility] 09/19/2024 12:23:56 Imaging Results Imaging Date Name Status LastModified by Organiz ation Details LastModified Time 10/07/2024 CT, maxillofacial, w/o contrast completed [facility] [place] [address], [address], 10/09/2024 09:16:23 10/07/2024 CT, maxillofacial, w/o contrast completed [facility] [place] [address], [address], 10/09/2024 09:16:23 10/07/2024 CT, maxillofacial, w/o contrast completed [facility] [place] [address], [address], 10/08/2024 16:03:22 11/12/2024 spirometry testing* completed [email or web address] Information not available 11/12/2024 18:02:42 Procedure Notes None recorded. Medical Equipment None Reported. Allergies No known drug allergies Medications Name Sig Start Date Stop Date Status Note LastModified by Organization Details LastModified Time amoxicill in 500 mg capsule TAKE 1 CAPSULE BY MOUTH EVERY 8 HOURS FOR 7 DAYS 11/04 completed Not Available Not Available Not Available furosemid e 40 mg tablet active Medicati on ID: [id number] B rand Name: lisset lj Send Method: E-Prescr ibed Sub s Allowed: subs OK Medic ationGen ericName : furosemi de Not Available Not Available Not Available doxycycli ne hyclate 100 mg capsule TAKE 1 CAPSULE BY MOUTH TWICE DAILY FOR 14 DAYS active Not Available Not Available No t Available albuterol sulfate 2.5 mg/3 mL (0.083 %) solution for nebulizat ion USE 1 VIAL IN NEBULIZE R EVERY 4 HOURS NEEDED SHORTNES S OF BREATH OR WHEEZING 11/12 completed Not Available Not Available Not Available trazodone 50 mg tablet TAKE 1 TO 2 TABLETS BY MOUTH ONCE DAILY AT BEDTIME active Not Available Not Available No t Available polyethyl izaiah glycol 3350 17 gram oral powder packet DISSOLVE 1 PACKET IN 8OZ OF FLUID & DRINK ONCE DAILY active Not Available Not Available No t Available metoprolo l tartrate 100 mg tablet TAKE 1 TABLET BY MOUTH TWICE DAILY WITH FOOD active Not Available Not Available No t Available benzonata te 200 mg capsule TAKE 1 CAPSULE BY MOUTH THREE TIMES DAILY NEEDED 11/04 completed Not Available Not Available Not Available meloxicam 15 mg tablet TAKE 1 TABLET BY MOUTH ONCE DAILY active Not Available Not Available No t Available metronida zole 0.75 % (37.5 mg/5 gram) vaginal gel INSERT 1 APPLICAT ORFUL VAGINALL Y ONCE DAILY FOR 5 DAYS active Not Available Not Available No t Available prednison e 20 mg tablet TAKE 1 TABLET BY MOUTH ONCE DAILY 11/12 completed Not Available Not Available Not Available hydroxyzi ne pamoate 50 mg capsule TAKE 1 CAPSULE BY MOUTH TWICE DAILY NEEDED FOR ANXIETY active Not Available Not Available No t Available potassium chloride ER 10 mEq tablet,ex tended release TAKE 1 TABLET BY MOUTH ONCE DAILY WITH FOOD active Not Available Not Available No t Available metronida zole 500 mg tablet TAKE 1 TABLET BY MOUTH EVERY 12 HOURS FOR 5 DAYS NO ALCOHOL WITH MEDICATI ON UNTIL 72 HOURS OF LAST DOSE active Not Available Not Available No t Available hydroxyzi ne HCl 50 mg tablet TAKE 1 TABLET BY MOUTH THREE TIMES DAILY NEEDED FOR ANXIETY active Not Available Not Available No t Available clopidogr el 75 mg tablet TAKE 1 TABLET BY MOUTH ONCE DAILY active Not Available Not Available No t Available doxycycli ne monohydra te 100 mg tablet TAKE 1 TABLET BY MOUTH TWICE DAILY FOR 14 DAYS active Not Available Not Available No t Available spironola ctone 25 mg tablet TAKE 1 TABLET BY MOUTH ONCE DAILY active Not Available Not Available No t Available simvastat in 40 mg tablet TAKE 1 TABLET BY MOUTH IN THE EVENING active Not Available Not Available No t Available pantopraz ole 20 mg tablet,de layed release TAKE 1 TABLET BY MOUTH ONCE DAILY 30-60 MINUTES BEFORE MORNING MEAL active Not Available Not Available No t Available amlodipin e 10 mg tablet TAKE 1 TABLET BY MOUTH ONCE DAILY active Not Available Not Available No t Available dexametha sone 2 mg tablet active Not Available Not Available Not Available trazodone 150 mg tablet TAKE 2 TABLETS BY MOUTH ONCE DAILY AT BEDTIME (DOSE INCREASE D) active Not Available Not Available No t Available esomepraz ole magnesium 40 mg capsule,d elayed release TAKE 1 CAPSULE BY MOUTH ONCE DAILY active Not Available Not Available No t Available clotrimaz ole-betam ethasone 1 %-0.05 % topical cream APPLY CREAM TOPICALL Y TO RASH AREA ONCE DAILY active Not Available Not Available No t Available metoprolo l tartrate 50 mg tablet active Medicati on ID: [id number] B rand Name: metoprol ol tartrate Send Method: E-Prescr ibed Sub s Allowed: subs OK Speci al Instruct ion: TAKE 1 TABLET BY MOUTH TWICE DAILY DIRECTED Medicat ionGener icName: metoprol ol tartrate Not Available Not Available Not Available docusate sodium 100 mg capsule TAKE 1 CAPSULE BY MOUTH TWICE A DAY active Not Available Not Available No t Available gabapenti n 300 mg capsule 11/12 completed Medicati on ID: [id number] B rand Name: gabapent in Send Method: E-Prescr ibed Sub s Allowed: subs OK Medic ationGen ericName : gabapent in Not Available Not Available Not Available budesonid e 0.5 mg/2 mL suspensio n for nebulizat ion USE 2 ML IN NEBULIZE R ONCE DAILY active Not Available Not Available No t Available monteluka st 10 mg tablet TAKE 1 TABLET BY MOUTH ONCE DAILY active Not Available Not Available No t Available codeine 10 mg-guaife nesin 100 mg/5 mL oral liquid TAKE 10ML BY MOUTH EVERY 4 HOURS NEEDED FOR 10 DAYS active Not Available Not Available No t Available hydralazi ne 50 mg tablet TAKE 1 TABLET BY MOUTH 4 TIMES DAILY WITH FOOD active Not Available Not Available No t Available hydrochlo rothiazid e 25 mg tablet TAKE 1 TABLET BY MOUTH ONCE DAILY active Not Available Not Available No t Available mupirocin 2 % topical ointment APPLY OINTMENT TOPICALL Y TO AFFECTED AREA TWICE DAILY FOR 7 DAYS active Not Available Not Available No t Available azelastin e 137 mcg (0.1 %) nasal spray active Medicati on ID: [id number] B rand Name: azelasti ne Send Method: E-Prescr ibed Sub s Allowed: subs OK Speci al Instruct ion: USE 2 SPRAY(S) IN EACH NOSTRIL TWICE DAILY FOR 30 DAYS Med icationG enericNa me: azelasti ne Not Available Not Available Not Available methylpre dnisolone 4 mg tablets in a dose pack USE DIRECTED 11/12 completed Not Available Not Available Not Available albuterol sulfate HFA 90 mcg/actua tion aerosol inhaler INHALE 2 PUFFS BY MOUTH EVERY 6 HOURS NEEDED FOR SHORTNES S OF BREATH AND FOR WHEEZING active Not Available Not Available No t Available ipratropi um bromide 42 mcg (0.06 %) nasal spray USE 2 SPRAY(S) IN EACH NOSTRIL THREE TIMES DAILY NEEDED FOR ALLERGY SYMPTOMS active Not Available Not Available No t Available lisinopri l 40 mg tablet TAKE 1 TABLET BY MOUTH ONCE DAILY active Not Available Not Available No t Available ondansetr on 4 mg disintegr ating tablet DISSOLVE 1 TABLET IN MOUTH EVERY 8 HOURS NEEDED FOR NAUSEA active Not Available Not Available No t Available topiramat e 100 mg tablet TAKE 1 TABLET BY MOUTH ONCE DAILY active Not Available Not Available No t Available fluticaso ne propionat e 50 mcg/actua tion nasal spray,bro pension USE 1 SPRAY(S) IN EACH NOSTRIL ONCE DAILY active Not Available Not Available No t Available loratadin e 10 mg tablet TAKE 1 TABLET BY MOUTH ONCE DAILY active Not Available Not Available No t Available spironola ctone 50 mg tablet active Medicati on ID: [id number] B rand Name: spironol actone S end Method: E-Prescr ibed Sub s Allowed: subs OK Speci al Instruct ion: TAKE 1 TABLET BY MOUTH ONCE DAILY. STOP AURORA M SUPPLEME NT. Medi cationGe nericNam e: spironol actone Not Available Not Available Not Available amoxicill in 875 mg-potass ium clavulana te 125 mg tablet TAKE 1 TABLET BY MOUTH EVERY 12 HOURS FOR 7 DAYS 11/04 completed Not Available Not Available Not Available oxycodone 5 mg tablet TAKE 1 TABLET BY MOUTH EVERY 8 HOURS NEEDED FOR MODERATE TO SEVERE PAIN. 11/12 completed Not Available Not Available Not Available hydroxyzi ne pamoate 25 mg capsule TAKE 1 CAPSULE BY MOUTH TWICE DAILY NEEDED FOR ANXIETY active Not Available Not Available No t Available escitalop jessica 10 mg tablet TAKE 1/2 (ONE-DEEPAK F) TABLET BY MOUTH FOR A WEEK , THEN INCREASE TO 1 TABLET, THEREAFT ER 1 TIME PER DAY active Not Available Not Available No t Available escitalop jessica 20 mg tablet TAKE 1 TABLET BY MOUTH ONCE DAILY active Not Available Not Available No t Available Prilosec OTC 20 mg tablet,de layed release active Medicati on ID: [id number] B rand Name: Prilosec OTC Send Method: E-Prescr ibed Sub s Allowed: subs OK Speci al Instruct ion: TAKE 1 TABLET BY MOUTH ONCE DAILY Me dication GenericN judith: Prilosec OTC Not Available Not Available Not Available bupropion HCl XL 300 mg 24 hr tablet, extended release TAKE 1 TABLET BY MOUTH ONCE DAILY active Not Available Not Available No t Available bupropion HCl XL 150 mg 24 hr tablet, extended release TAKE 1 TABLET BY MOUTH IN THE MORNING active Not Available Not Available No t Available Vitamin D3 50 mcg (2,000 unit) capsule active Medicati on ID: [id number] B rand Name: Vitamin D3 Send Method: E-Prescr ibed Sub s Allowed: subs OK Medic ationGen ericName : Vitamin D3 Not Available Not Available Not Available Incruse Ellipta 62.5 mcg/actua tion powder for inhalatio n active Medicati on ID: [id number] B rand Name: Incruse Ellipta Send Method: E-Prescr ibed Sub s Allowed: subs OK Speci al Instruct ion: INHALE 1 PUFF BY MOUTH ONCE DAILY Me dication GenericN judith: Incruse Ellipta Not Available Not Available Not Available Breo Ellipta 200 mcg-25 mcg/dose powder for inhalatio n active Medicati on ID: [id number] B rand Name: Breo Ellipta Send Method: E-Prescr ibed Sub s Allowed: subs OK Speci al Instruct ion: INHALE 1 PUFF BY MOUTH ONCE DAILY Me dication GenericN judith: Breo Ellipta Not Available Not Available Not Available Trelegy Ellipta 200 mcg-62.5 mcg-25 mcg powder for inhalatio n INHALE 1 PUFF ONCE DAILY active Not Available Not Available No t Available Vitals Date Recorded Body weight Body mass index (BMI) Body height Provider Name and Address Organization Details Last Updated DateTime 09/19/2024 454303.27 g 46.4 kg/m2 165.1 cm Jessica Umanzor [place] - [facility] 09/19/2024 10:19:27 Date Recorded Body height Body mass index (BMI) Body weight Provider Name and Address Organization Details Last Updated DateTime 11/04/2024 165.1 cm 45.8 kg/m2 550519.9 g Emily Ba [place] - [facility] 11/04/2024 14:55:31 Date Recorded Body height Body mass index (BMI) Body weight Oxygen saturation Oxygen saturation in Arterial blood by Pulse oximetry Heart rate Systolic blood pressure Diastolic blood pressure Systolic blood pressure Diastolic blood pressure Provider Name and Address Organization Details Last Updated DateTime 165.1 cm 45.8 kg/m2 725979. 9 g 98 % 98 % 76 /min 160 mm[Hg] 94 mm[Hg] 172 mm[Hg] 96 mm[Hg] ETELVINA VERONICA, [facility] [address] [facility],[place] [address], [place], [address], [place] - [facility] 10:14:58 Social History Question Answer Notes LastModified by Organizat ion Details LastModified Time Tobacco Smoking Status Former Smoker [facility] VERONICA, [facility] [address] [facility],[place] [address], [place], [address], [facility] - [facility] 11/12/2024 09:17:45 When Did You Quit Smoking? 17+yearssinc elastcigaret te Information not available 11/12/2024 How Much Tobacco Do You Smoke? 1 PPW Information not available 11/12/2024 How Many Years Have You Smoked Tobacco? 10 Information not available 11/12/2024 Sex: Unknown Functional Status None recorded. Mental Status None recorded. Family History Nothing Reported. Medical History Condition Response Allergies/Hayfever N Anxiety N Tonsil Infections N Emphysema N Migraines N Thyroid Problems N Developmental Delay N Glaucoma N Depression N COPD N Nasal or Sinus Problems N Anemia N Immune System Disorder N Anesthesia Complications N Heart Attack (PR) N Other Skin Condition N Diabetes N Rhinitis N Bleeding Disorder N Food Allergy Y Arthritis N Hearing Loss N Hyperlipidemia N Cancer N Stroke N Dementia N Nasal polyps N Asthma Y High Cholesterol Y Sleep Disorder Y GERD/Reflux N Liver Disease N Headaches N Fibromyalgia N Hypertension N Speech Delay N Kidney Disease N Gynecological HistoryNo gynecological history recorded. 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 [id number] ETELVINA VERONICA, A [facility] [address] [facility] [address] [place] [address] 11/12/2024 08:46:13 11/12/2024 10:45:34 Allergic rhinitis caused by pollen 86075936 J30.1 Health Concerns Section Related Observation LastModified by Organization Detai ls LastModified Time None Recorded Concern Status LastModified by Organization Details LastModified Time None Recorded Advance Directives Directive None Recorded Payers Encounter Date Sequence Insurance Name Policy Number Policy Mei Covered Member ID Mei Member ID Guarantor Name 09/19/2024 1 [place] [employer] Lynnette T Bodiford [id number] Lynnette T Bodiford 09/19/2024 2 [place] [facility] Lynnette T Bodiford [id number] Lynnette T Bodiford 11/04/2024 1 [place] [employer] Lynnette T Bodiford [id number] Lynnette T Bodiford 11/04/2024 2 [place] [facility] Lynnette T Bodiford [id number] Lynnette T Bodiford 11/12/2024 1 [place] [employer] Lynnette T Bodiford [id number] Lynnette T Bodiford 11/12/2024 2 [place] [facility] Lynnette T Bodiford [id number] Lynnette T Bodiford Notes Date Note Type Note Provider Name and Address Organization Details Recorded Time 09/19/2024 text/html 63 year old femleona linares presents reporting left sided nasal congestion and left maxillary sinus pressure since March. She reports postnasal drip that causes her to cough. She brings up clear mucus. She has tried antibiotics and steroids with no improvement. No history of sinus infection. She uses Flonase and Claritin daily. She tried a three day course of Afrin with no improvement. She reports that she does have some bad teeth but no known bad left upper molars. FER RIVERA MD [address] [facility],[address] [facility], [place], [address], [facility] - [facility] [place] 09/19/2024 12:45:42 11/04/2024 text/html 63 year old kalin linares presents to review CT sinus which was performed at [facility] 10/07/24. She reports that her left maxillary pain is improving. She has allergy tested scheduled. SHRAVAN JUDD MD [address] [facility],[place] [address], [place], [address], [facility] - [facility] 11/06/2024 08:24:49 11/12/2024 text/html Pt presents for allergy testing. Due to elevated bp due to holding her beta ghislaine and other 3 meds and having poor pfts Dr. Hernandez wanted pt to have RAST and to follow up with Dr. Rivera to figure out next steps SHRUIT [place] [address] [facility],[address] [facility], [place], [address], [facility] - [facility] 11/12/2024 10:45:27 OBGyn Episode No OBEpisode recorded.
--- OUTSIDE RECORDS SUMMARY | 2024-12-08 12:36 | XMS_ITS ---
Author Organization Yovanny Noel III, MD Address [address] [place] [address] Care Team Providers Care Stave Mill Hand Name Role Phone Yovanny Noel Primary Care Provider [phone] Medications Medication SIG (Take, Route, Frequency, Duration) Notes Start Date End Date Status Pantoprazole Sodium 20 MG 1 tablet 1/2 t o 1 hour before morning meal Orally Once a day for 30 days 10/27/2024 Active Social History Sex Assigned At : Social History Observation Description Sex Assigned At Female Encounters Encounter Location Date Provider Diagnosis Yovanny Noel III, MD [address] [place] [address] [place] [address] 10/27/2024 Yovanny Noel Plan Of Treatment Medication Medication Name Sig Start Date Stop Date Notes Pantoprazole Sodium 20 MG 1 tablet 1/2 t o 1 hour before morning meal Orally Once a day for 30 days 10/27/2024 Next Appt Details Provider Name:Yovanny Noel, 12/26/2024 10:00:00 AM, [address] [facility] [address], [place], [address], Provider Name:Yovanny Noel, 10/05/2025 10:30:00 AM, [address] [place] [address] [address], [place], [address], Progress Notes * PAMELAMARNILynnette SHANNON TDOB: [birth year] (63 yo F)Acc No.[id number]:10/27/2024 Patient:?Lynnette MCGILL :1960???Age:63 Y???Sex:Female Address:[address] [place] [phone] * Refills? Start Pantoprazole Sodium Tablet Delayed Release, 20 MG, Orally, 30, 1 tablet 1/2 to 1 hour before morning meal, Once a day, 30 days, Refills=11 * true * Date:? Generated for Noreen fonseca/Joel/eTransmitting on:?12/08/2024 12:36 PM EDT
--- OUTSIDE RECORDS SUMMARY | 2024-12-08 12:36 | XMS_ITS | Clinical Summary ---
Author Organization [facility] Address [address] [place] [address] Phone Care Team Providers Care Computer Service Technician Name Role Phone Ghazala Neol MD Primary Care Provider Allergies Active Allergy Reactions Criticality Noted Date Comments Tomato 02/19/2018 Watermelon 02/19/2018 Medications CHOLECALCIFEROL , VITAMIN D3, ORAL Take by mouth. Acti ve inhalational spacing device (Aerochamber MV) inhaler 1 Device by Does not apply route 2 times daily. 8 Active WHEAT DEXTRIN ORAL Take 4 g by mouth daily. 1 Active albuterol HFA (PROAIR HFA ; PROVENTIL HFA ; VENTOLIN HFA) 90 mcg/actuation inhaler Inhale 2 Puffs into the lungs every 4 hours as needed for Cough or Wheezing. 0 Active buPROPion XL (WELLBUTRIN XL) 150 mg 24 hr tablet Take 1 Tablet by mouth every morning for 90 days. 4 Active clopidogreL (PLAVIX) 75 mg tablet TAKE 1 TABLET BY MOUTH ONCE DAILY DIRECTED 0 Active fluticasone propionate (FLONASE) 50 mcg/actuation nasal spray 2 Sprays by Nasal route daily. Intranasal: Two sprays in each nostril once daily; once symptoms controlled reduce to 1 spray in each nostril once daily . Maintenance therapy is 0 Active fluticasone furoate-vilante roL (Breo Ellipta) 200-25 mcg/dose inhaler Inhale 1 Puff into the lungs daily. 0 Active furosemide (LASIX) 40 mg tablet Take 40 mg by mouth daily. Active gabapentin (NEURONTIN) 100 mg capsule Take 100 mg by mouth 3 times daily. Active hydrALAZINE (APRESOLINE) 10 mg tablet TAKE 1 TABLET BY MOUTH TWICE DAILY WITH FOOD 0 Active hydroCHLOROthia zide (HYDRODIURIL) 25 mg tablet Take 25 mg by mouth daily. Active ibuprofen (ADVIL,MOTRIN) 800 mg tablet TAKE 1 TABLET BY MOUTH THREE TIMES DAILY 0 Active lisinopril (PRINIVIL,ZESTR IL) 40 mg tablet Take 40 mg by mouth daily. 0 Active loratadine (CLARITIN) 10 mg tablet Take 1 Tab by mouth daily. 0 Active metoprolol succinate (TOPROL-XL) 50 mg 24 hr tablet Take 50 mg by mouth daily. Active metoprolol tartrate (LOPRESSOR) 50 mg tablet TAKE 1 TABLET BY MOUTH TWICE DAILY DIRECTED 0 Active montelukast (SINGULAIR) 10 mg tablet Take 1 Tab by mouth at bedtime. 0 Active omeprazole (PriLOSEC) [address] capsule Take 20 mg by mouth daily. Active simvastatin (ZOCOR) 40 mg tablet Take 40 mg by mouth at bedtime. Active tiotropium (Spiriva Respimat) 1.25 mcg/actuation inhalation spray Inhale 1 Puff into the lungs daily. Maintenance inhaler: Take 1 puff daily. 0 Active topiramate (TOPAMAX) 100 mg tablet Take 1 Tablet by mouth daily for 360 days. 4 07/03/20 25 Active Active Problems Problem Noted Date Diagnosed Date Eating disorder, unspecified 08/09/2021 Overview (08/26/2024): Tiffanie Benitez PhD History of cerebrovascular a ccident (CVA) with residual deficit 08/09/2021 Overview (08/26/2024): Left sided weakness Left ventricular hypertrophy 05/21/2019 Pulmonary nodules 05/21/2019 DEMI (obstructive sleep apnea) 02/07/2018 Overview (08/26/2024): [facility] Home Sleep Apnea Test: Date 04/30/2019; Wt 303#; BMI 50; RAQUEL 12, AI 2; HI 11; Unclassified apneas 2; Obstructive apneas 2; Central apneas 2; Mixed apneas 0; hypopneas 40; average oxygen saturation 95% (lowest 82% without saturations <88% for 5% or more of study) - Obstructive Sleep Apnea - mild; mostly hypopneas; without sleep related hypoventilation by 2019 home sleep apnea test. Asthma 12/04/2017 Hypertension 12/04/2017 Hyperlipidemia 12/04/2017 Lumbar radiculopathy 12/04/2017 Nontoxic uninodular goiter 12/04/2017 Class 3 severe obesity with body mass index (BMI) of 45.0 to 49.9 in adult 12/04/2017 Encounters Date Type Department Care Team Description 10/13/2024 2:48 PM EST - 10/13/2024 11:59 PM [facility] Hospital Encounter [facility] CT Scan [address] [place] [address] History of smoking Discharge Disposition: Home or Self Care 10/07/2024 5:37 PM EST - 10/07/2024 11:59 PM [facility] Hospital Encounter [facility] MRI [address] [place] [id number] Lumbar radiculopathy Discharge Disposition: Home or Self Care from Last 3 Months Surgical History Surgery Date Site/Laterality Comments HYSTERECTOMY PROCEDURE: HISTORICAL HYSTERECTOMY KNEE SURGERY Left PROCEDURE: HISTORICAL KNEE SURGERY Medical History Medical History Date Comments Morbid obesity with BMI of 5 0.0-59.9, adult ([facility]) 12/04/2017 DX:Morbid obesity with BMI o f 50.0-59.9, adult ([facility]) Hyperlipidemia 12/04/2017 DX:Hyperlipidemi a Nontoxic uninodular goiter 12/04/2017 DX:No ntoxic uninodular goiter Hypertension 12/04/2017 DX:Hypertension Asthma 12/04/2017 DX:Asthma Lumbar radiculopathy 12/04/2017 DX:Lumbar r adiculopathy Eating disorder, unspecified 08/09/2021 DX: Eating disorder, unspecified; COMMENT: Tiffanie Benitez PhD Left ventricular hypertrophy 05/21/2019 DX: Left ventricular hypertrophy DEMI (obstructive sleep apnea) 02/07/2018 DX :DEMI (obstructive sleep apnea); COMMENT: [facility] Home Sleep Apnea Test: Date 04/30/2019; Wt 303#; BMI 50; RAQUEL 12, AI 2; HI 11; Unclassified apneas 2; Obstructive apneas 2; Central apneas 2; Mixed apneas 0; hypopneas 40; average oxygen saturation 95% (lowest 82% without saturations <88% for 5% or more of study) - Obstructive Sleep Apnea - mild; mostly hypopneas; without sleep related hypoventilation * Pulmonary nodules 05/21/2019 DX:Pulmonary n odules History of cerebrovascular a ccident (CVA) with residual deficit 08/09/2021 DX:History of cerebrovascu lar accident (CVA) with residual deficit; COMMENT: Left sided weakness Family History Medical History Relation Name Comments Kidney failure Father HTN, ETOH, Breast cancer Mother depression, HT N Diabetes Son Diabetes Uncle Relation Name Status Comments Father Mother Son Alive Uncle Alive maternal Social History Tobacco Use Types Packs/Day Years Used Date Smoking Tobacco: Former Smokeless Tobacco: Never Alcohol Use Standard Drinks/Week Comments No 0 (1 standard drink = 0.6 oz pur e alcohol) Comments Unknown Sex and Gender Information Value Date Recorded Sex Assigned at Female 10/06/2024 11:02 AM EST Legal Sex Female 11:33 AM EST Gender Identity Female 10/06/2024 11:02 AM EST Sexual Orientation Not on file Obstetrics History Last Filed Vital Signs Vital Sign Reading Time Taken Comments Blood Pressure 145/93 07/08/2024 11:05 AM EDT Pulse 76 07/08/2024 11:05 AM EDT Temperature - - Respiratory Rate - - Oxygen Saturation - - Inhaled Oxygen Concentration - - Weight 126 kg (278 lb) 07/08/2024 11:05 AM EDT Height 165.1 cm (5' 5 ) 07/08/2024 11:05 AM EDT Body Mass Index 46.26 07/08/2024 11:05 AM EDT Plan of Treatment Upcoming Encounters Date Type Department Care Team (Late st Contact Info) Description 12/15/2024 3:00 PM EDT Office Visit Bariatric Surgery - [address] [address] Julian Hubbard MD [address] [place] [address] Health Maintenance Due Date Last Done Comments DTaP,Tdap,and Td Vaccines (1 - Tdap) 1980 Pneumococcal Vaccine: 50+ Years (1 of 2 - PCV) 1980 Pneumococcal Vaccine: Pediatrics (0 to 5 Years) and At-Risk Patients (6 to 64 Years) (1 of 2 - PCV) 1980 Cervical Cancer Screening: Pap Smear 1982 Zoster Vaccines (1 of 2) 2011 RSV Immunization Patients 60+ Years Old (1 - Risk 60-74 years 1-dose series) 2021 Colorectal Cancer Screening: Colonoscopy 08/29/2022 HIV Screening 08/29/2022 Hepatitis C Screening 08/29/2022 Medicare Annual Wellness Visit 08/29/2022 Social Influencers of Health Screening 08/29/2022 Hypertension/CHF/CAD Annual BMP Blood Test 01/31/2024 01/30/2023 COVID-19 Vaccine ( season) 2024 Influenza Vaccine (#1) 2024 Depression Screening 07/08/2025 07/08/2024 Cholesterol Screening (Lipid Panel) 04/22/2026 04/22/2021 Breast Cancer Screening 05/08/2026 05/08/20 24, 06/26/2022, 06/22/2021, Additional history exists HIB Vaccines Aged Out No longer eligi ble based on patient's age to complete this topic HPV Vaccines Aged Out No longer eligi ble based on patient's age to complete this topic Hepatitis A Vaccines Aged Out No long er eligible based on patient's age to complete this topic Hepatitis B Vaccines Aged Out No long er eligible based on patient's age to complete this topic IPV Vaccines Aged Out No longer eligi ble based on patient's age to complete this topic MMR Vaccines Aged Out No longer eligi ble based on patient's age to complete this topic Meningococcal ACWY Vaccine Aged Out N o longer eligible based on patient's age to complete this topic Meningococcal B Vacine Aged Out No lo nger eligible based on patient's age to complete this topic RSV Immunization Patients Under 20 months Aged Out No longer eligible based on patient's age to complete this topic Varicella Vaccines Aged Out No longer eligible based on patient's age to complete this topic Procedures Procedure Name Priority Date/Time Associated Diagnosis Comments CT LUNG SCREENING Routine 10/13/2024 3:2 3 PM EST History of smoking MR LUMBAR SPINE WO CONTRAST Routine 10/07/2024 6:13 PM EST Lumbar radiculopathy DEPRESSION SCREENING Routine 07/08/2024 CATHI SCREENING DIGITAL Routine 05/08/2024 1:31 PM EDT Encounter for screening mammogram for malignant neoplasm of breast ANNUAL BMP BLOOD TEST Routine 01/30/2023 LIPID PANEL Routine 04/22/2021 from Last 3 Months or Most Recently Relevant to Health Maintenance Results * CT Lung Screening (10/13/2024 3:23 PM EST) Anatomical Region Laterality Modality Chest Computed Tomogra phy 10/21/2024 11:0 1 AM EST Impressions 10/21/2024 11:11 AM EST Impression: No suspicious developing pulmonary nodule. No significant change. Lung-RADS Category: ??Lung-RADS 2: Nodule(s) with benign appearance or behavior. Continue annual screening with Low Dose Chest CT in 12 months. Recommendations: Continue annual screening with low-dose noncontrast chest CT in 12 months. -------- FINAL REPORT -------- Dictated By: Crystal Carmen Dictated Date: 10/21/2024 11:01 ET Assigned Physician: Crystal Carmen Reviewed and Electronically Signed By: Crystal Carmen Signed Date: 10/21/2024 11:11 ET Workstation ID: [id number] Transcribed By: Self Edit Transcribed Date: 10/21/2024 11:01 ET Narrative 10/21/2024 11:11 AM EST History: ??63 year-old 36 pack-year former smoker, asymptomatic, for lung cancer screening. Quit smoking 15 years ago. Mother had breast carcinoma. Comparison: 10/12/23 Technique: Helical volumetric imaging of the thorax was performed, using low- dose technique, without IV contrast. DLP: 168.57 mGy/cm ??CTDIvol: 4.83 mGy GE Texturapeed VCT Iterative reconstruction technique Findings: Lungs and Airways: The trachea and central bronchial tree remain patent. Coarse curvilinear opacity in the right upper lobe, with volume loss, is stable, consistent with scarring. A 4 mm solid, noncalcified nodule is unchanged in the superior segment of the right lower lobe (image 99 series 3). No suspicious developing nodule is seen. Pleura: No pleural or pericardial effusions are seen. Base of neck, mediastinum and heart: The heart remains normal in size. Mild coronary artery calcification is noted. No suspicious thyroid nodule is seen. There is no developing thoracic lymphadenopathy. Soft tissues: The overlying soft tissues are unremarkable. Abdomen: This study was performed without contrast and with lower than standard dose. These factors reduce the sensitivity for detection of small lesions in the upper abdomen. Cholecystectomy clips are noted. 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 Procedure Note Crystal Carmen MD - 10/21/2024 History: 63 year-old 36 pack-year former smoker, asymptomatic, for lungcancer screening. Quit smoking 15 years ago. Mother had breastcarcinoma. Comparison: 10/12/23 Technique: Helical volumetric imaging of the thorax was performed, usinglow-dose technique, without IV contrast. DLP: 168.57 mGy/cm CTDIvol: 4.83 mGy GE Texturapeed VCT Iterative reconstruction technique Findings: Lungs and Airways: The trachea and central bronchial tree remain patent.Coarse curvilinear opacity in the right upper lobe, with volume loss, isstable, consistent with scarring. A 4 mm solid, noncalcified nodule is unchanged in the superior segment ofthe right lower lobe (image 99 series 3). No suspicious developing noduleis seen. Pleura: No pleural or pericardial effusions are seen. Base of neck, mediastinum and heart: The heart remains normal in size.Mild coronary artery calcification is noted. No suspicious thyroid noduleis seen. There is no developing thoracic lymphadenopathy. Soft tissues: The overlying soft tissues are unremarkable. Abdomen: This study was performed without contrast and with lower thanstandard dose. These factors reduce the sensitivity for detection of smalllesions in the upper abdomen. Cholecystectomy clips are noted. Sleevegastrectomy sequelae are noted. IMPRESSION: Impression: No suspicious developing pulmonary nodule. No significant change. Lung-RADS Category: Lung-RADS 2: Nodule(s) with benign appearance orbehavior. Continue annual screening with Low Dose Chest CT in 12 months. Recommendations: Continue annual screening with low-dose noncontrast chestCT in 12 months. -------- FINAL REPORT -------- Dictated By: Crystal Carmen Dictated Date: 10/21/2024 11:01 ET Assigned Physician: Crystal Carmen Reviewed and Electronically Signed By: Crystal Carmen Signed Date: 10/21/2024 11:11 ET Workstation ID: [id number] Transcribed By: Self Edit Transcribed Date: 10/21/2024 11:01 ET us Richie Wheeler MD IMG CT PROCEDURES Final Result * MR Lumbar Spine wo Contrast (10/07/2024 6:13 PM EST) Anatomical Region Laterality Modality L-spine, Spine Magnetic Resonan ce 10/11/2024 12:2 9 PM EST Impressions 10/11/2024 12:37 PM EST Grade 1 anterolisthesis of L5 over S1 resulting in broad-based diffuse moderate disc bulge and mild concentric canal stenosis. There is severe facet joint arthropathy with bilateral neural foraminal narrowing. Mild degenerative disc and L3-4, L4-5 and minimal bulge at L2-3 disc level with mild bilateral neural foramina narrowing. Moderate concentric canal stenosis at L4-5 disc level. -------- FINAL REPORT -------- Dictated By: Mitch Ford Dictated Date: 10/11/2024 12:29 ET Assigned Physician: Mitch Ford Reviewed and Electronically Signed By: Mitch Ford Signed Date: 10/11/2024 12:37 ET Workstation ID: [id number] Transcribed By: Self Edit Transcribed Date: 10/11/2024 12:29 ET Narrative 10/11/2024 12:37 PM EST MRI lumbar spine without contrast. CLINICAL INDICATION: Increasing low back pain radiating down the right leg at rest. COMPARISON: None. TECHNIQUE: Routine imaging of the lumbar spine was obtained without contrast. FINDINGS: There is normal lumbar lordosis. There is grade 1 anterolisthesis of L5 over S1. Rest the disc alignment is normal. There is loss of L1-2, L2-3 and L5- S1 disc levels. Mild disc desiccation changes at L2-3 and L5-S1 disc levels are noted. The L1-2 disc level is unremarkable. At L2-3 disc level there is mild bulge flattening the ventral thecal sac with mild facet joint and ligament flavum hypertrophy without spinal canal stenosis. There is mild bilateral neural foraminal narrowing. At L3-4 disc level is mild disc bulge flattening the ventral thecal sac without spinal canal stenosis. There is mild bilateral neural foraminal narrowing. At L4-5 disc level there is mild flattening of ventral thecal sac with bilateral facet joint and ligament flavum hypertrophy resulting in moderate concentric canal stenosis. The neural foramina are mildly narrowed bilaterally. At L5-S1 disc levels a broad-based diffusely with disc bulge without spinal canal stenosis. The neural foramina are moderately narrowed bilaterally secondary to was significant bilateral facet joint hypertrophy and arthropathy.. There are small Tarlov cyst posterior S2 and S3 vertebra. Conus medullaris terminates at L1 and appears normal in morphology. The bone marrow signal is normal. The paravertebral signal is normal. Procedure Note Mitch Ford MD - 10/11/2024 MRI lumbar spine without contrast. CLINICAL INDICATION: Increasing low back pain radiating down the right legat rest. COMPARISON: None. TECHNIQUE: Routine imaging of the lumbar spine was obtained withoutcontrast. FINDINGS: There is normal lumbar lordosis. There is grade 1anterolisthesis of L5 over S1. Rest the disc alignment is normal. There isloss of L1-2, L2-3 and L5-S1 disc levels. Mild disc desiccation changes atL2-3 and L5-S1 disc levels are noted. The L1-2 disc level is unremarkable. At L2-3 disc level there is mild bulge flattening the ventral thecal sacwith mild facet joint and ligament flavum hypertrophy without spinal canalstenosis. There is mild bilateral neural foraminal narrowing. At L3-4 disc level is mild disc bulge flattening the ventral thecal sacwithout spinal canal stenosis. There is mild bilateral neural foraminalnarrowing. At L4-5 disc level there is mild flattening of ventral thecal sac withbilateral facet joint and ligament flavum hypertrophy resulting inmoderate concentric canal stenosis. The neural foramina are mildlynarrowed bilaterally. At L5-S1 disc levels a broad-based diffusely with disc bulge withoutspinal canal stenosis. The neural foramina are moderately narrowedbilaterally secondary to was significant bilateral facet joint hypertrophyand arthropathy.. There are small Tarlov cyst posterior S2 and S3 vertebra. Conus medullaristerminates at L1 and appears normal in morphology. The bone marrow signalis normal. The paravertebral signal is normal. IMPRESSION: Grade 1 anterolisthesis of L5 over S1 resulting in broad-based diffusemoderate disc bulge and mild concentric canal stenosis. There is severefacet joint arthropathy with bilateral neural foraminal narrowing. Mild degenerative disc and L3-4, L4-5 and minimal bulge at L2-3 disclevel with mild bilateral neural foramina narrowing. Moderate concentriccanal stenosis at L4-5 disc level. -------- FINAL REPORT -------- Dictated By: Mitch Ford Dictated Date: 10/11/2024 12:29 ET Assigned Physician: Mitch Ford Reviewed and Electronically Signed By: Mitch Ford Signed Date: 10/11/2024 12:37 ET Workstation ID: [id number] Transcribed By: Self Edit Transcribed Date: 10/11/2024 12:29 ET Ghaazla Noel [place] [facility] [place]ED[place] Final Resul t * Depression Screening (07/08/2024) Depression Screening Abstracted Historical Provider HEALTH MAINTENANCE Final Result * CATHI SCREENING DIGITAL (05/08/2024 1:31 PM EDT) Anatomical Region Laterality Modality Mammography 05/08/2024 10:5 9 AM EDT Narrative 05/08/2024 1:31 PM [facility] Diagnostic Imaging Department [address] [place] [address] Patient: ??RICH MCGILL ?/Age/Sex: 1960 - Unit#: ??[id number] ? Location/Status: ??SPDIMAM/REG CLI ? Mnemonic/Ordering Site: ??DIGSC/SPMAM Ordering Physician: ??GHAZALA NOEL MD [facility] Screening Digital - 05/08/24 - 1125 Report Status:Signed EXAM: [facility] Screening Digital EXAM DATE AND TIME: 05/08/2024 11:26 AM HISTORY: ??Screening. Right breast biopsy in 2009, pathology benign. COMPARISON: ??06/26/22, 06/22/21, 06/18/20 TECHNIQUE: Bilateral digital breast tomosynthesis was performed in the CC and MLO projections. Computer aided detection with [employer] 3D 3.1 was employed. TISSUE DENSITY: a. The breasts are almost entirely fatty. FINDINGS: No suspicious masses, grouped microcalcifications, or areas of architectural distortion are seen. A biopsy marker is again seen in the medial right breast. Numerous skin calcifications are present. The vascularity is unremarkable. IMPRESSION: Stable mammographic appearance of the breasts. ??No evidence of malignancy is seen. A negative mammogram in the presence of a clinically suspicious palpable abnormality does not preclude the possibility of malignancy or alter the indications for biopsy. BI-RADS: ??Category 2: Benign RECOMMENDATION(S): 1: Routine screening mammogram BILATERAL in 1 year. Dictating Physician: ??CRYSTAL CARMEN MD Electronically Signed by: ??CRYSTAL CARMEN MD Dic Date/Time: ??05/08/24 1331 Sign date/Time: ??05/08/24 1331 Procedure Note Crytsal Carmen MD - 07/16/2024 [facility] Diagnostic Imaging Department [address] [place] [id number] Patient: RIHC MCGILL Serg /Age/Sex: 1960 - 63 - F Unit#: [id number] Location/Status: [facility] CLI Mnemonic/Ordering Site: [facility] Ordering Physician: GHAZALA NOEL MD [facility] Screening Digital - 05/08/24 - 1125 Report Status:Signed EXAM: [facility] Screening Digital EXAM DATE AND TIME: 05/08/2024 11:26 AM HISTORY: Screening. Right breast biopsy in 2009, pathology benign. COMPARISON: 06/26/22, 06/22/21, 06/18/20 TECHNIQUE: Bilateral digital breast tomosynthesis was performed in the CCand MLO projections. Computer aided detection with [employer] 3D 3.1was employed. TISSUE DENSITY: a. The breasts are almost entirely fatty. FINDINGS: No suspicious masses, grouped microcalcifications, or areas ofarchitectural distortion are seen. A biopsy marker is again seen in the medial rightbreast. Numerous skin calcifications are present. The vascularity isunremarkable. IMPRESSION: Stable mammographic appearance of the breasts. No evidence of malignancyis seen. A negative mammogram in the presence of a clinically suspicious palpable abnormality does not preclude the possibility of malignancy or alter the indications for biopsy. BI-RADS: Category 2: Benign RECOMMENDATION(S): 1: Routine screening mammogram BILATERAL in 1 year. Dictating Physician: CRYSTAL CARMEN MD Electronically Signed by: CRYSTAL CARMEN MD Dic Date/Time: 05/08/24 1331 Sign date/Time: 05/08/24 1331 Ghazala Noel MD IMG BI PROCEDURES Final Result * Annual BMP Blood Test (01/30/2023) Annual BMP Blood Test Abstracted Historical Provider HEALTH MAINTENANCE Final Result * (ABNORMAL) Lipid panel (04/22/2021) LDL/HDL Ratio 6(A) 0 - 4 Triglycerides 159(A) 0 - 150 mg/dL Cholesterol 273(A) 0 - 200 mg/dL HDL 48 >=40 mg/dL LDL Cholesterol 194(A) 0 - 100 mg/dL Blood Venous blood specimen / Unknown Result [facility] Historical Provider LAB BLOOD ORDERABLES Frieda l Result from Last 3 Months or Most Recently Relevant to Health Maintenance Insurance [place] Member Subscriber Plan / Payer (Ef fective 2024-Present) Name:Rich Mcgill Relation to Subscriber:Self Name:Rich Mcgill Payer ID:[id number] Group ID:Not on file Type:Not on file Address: [facility] [address] [place] [id number] MEDICARE Care Teams Computer Service Technician Relationship Specialty Start Date End Date Ghazala Noel MD [address] [address] PCP - General Oncology 07/25/24
--- OUTSIDE RECORDS SUMMARY | 2024-12-08 12:37 | XMS_ITS ---
Author Organization Yovanny Noel III, MD Address [address] [place] [address] Care Team Providers Care Casting House Worker Name Role Phone Yovanny Noel Primary Care Provider REASON FOR VISIT Message Social History Sex Assigned At : Social History Observation Description Sex Assigned At Female Encounters Encounter Location Date Provider Diagnosis Yovanny Noel III, MD [address] [place] [address] [place] [address] 10/21/2024 Yovanny Noel Plan Of Treatment Next Appt Details Provider Name:Yovanny Noel, 12/26/2024 10:00:00 AM, [address] [facility] [place], [address], Provider Name:Yovanny Noel, 10/05/2025 10:30:00 AM, [address] [facility] [place], [address], Progress Notes * Lynnette MCGILL TDOB: [birth year] (63 yo F)Acc No.[id number]:10/21/2024 Patient:?Lynnette MCGILL :1960???Age:63 Y???Sex:Female Address:[address] [place] [phone] * true * Date:? Generated for Noreen fonseca/Joel/eTransmitting on:?12/08/2024 12:37 PM EDT
--- OUTSIDE RECORDS SUMMARY | 2024-12-08 12:37 | XMS_ITS ---
Author Organization Yovanny Noel III, MD Address [address] [place] [place] [address] Care Team Providers Care Enthone Solder Stripper Name Role Phone Yovanny Noel Primary Care Provider [phone] Allergies Allergen (clinical drug ingredient) Drug/Non Drug Allergy documented on EMR Reaction Allergy Type Onset Date Status No Known Drug Allergy Unknown Drug Allergy Active REASON FOR VISIT Bronchitis, Sore throat, Exacerbation of lumbar radiculopathy, Sinus infection Medications Medication SIG (Take, Route, Frequency, Duration) Notes Start Date End Date Status Ibuprofen 800 MG 1 tablet Orally Three times a day 07/28/2016 Active Montelukast Sodium 10 MG 1 tablet in the evening Orally Once a day Active amLODIPine Besylate 10 MG 1 tablet Orall y Once a day Active Furosemide 40 MG 1 tablet Orally Once a day 02/15/2021 Active K-Tab 10 MEQ 1 tablet with food Orally Once a day 02/15/2021 Active Flonase 50 MCG/ACT 1 spray in each nostril Nasally Once a day 09/28/2023 Active Escitalopram Oxalate 20 MG 1 tablet Orally Once a day 12/29/2021 Active Advair Diskus 500-50 MCG/DOSE 1 puff Inhalation every 12 hrs Active Combivent 18-103 MCG/ACT 2 puffs Inhalat ion Six times a day Active Esomeprazole Magnesium 40 MG Take 1 capsule by mouth once daily Active guaiFENesin-Codeine 100-10 MG/5ML 10 mL as needed Orally every 6 hrs 07/22/2024 Active Lisinopril 20MG TAKE ONE TABLET BY MOUTH EVERY DAY Active Clopidogrel Bisulfate 75 MG TAKE 1 TABLET BY MOUTH ONCE DAILY Orally Once a day Active dexAMETHasone 2 MG 1 tablet Orally every 12 hrs 10/21/2024 Active Pantoprazole Sodium 20 MG 1 tablet 1/2 t o 1 hour before morning meal Orally Once a day 10/27/2024 Active Polyethylene Glycol 3350 17 GM 1 packet mixed with 8 ounces of fluid Orally Once a day Active Benzonatate 200 MG 1 capsule as needed Orally Three times a day 06/24/2024 Active Meloxicam 15 MG Take 1 tablet by mouth once daily Active Loratadine 10 MG 1 tablet Orally Once a day 07/22/2024 Active Guaiatussin AC 100-10 MG/5ML 10 mL as needed Orally every 6 hrs As needed 07/22/2024 Active Gabapentin 300 MG 1 capsule Orally three times a day 01/23/2023 Active Simvastatin 40 MG Take 1 tablet by mouth in the evening Orally Once a day Active hydrALAZINE HCl 50 MG 1 tablet with food Orally Four times a day Active Metoprolol Tartrate 100 MG Take 1 tablet by mouth twice daily with food 30 day supply Active Lisinopril 40 MG 1 tablet Orally Once a day 11/12/2023 Active Pregabalin 50 MG 1 capsule Orally Twice a day Active Cyclobenzaprine HCl 10 MG as directed Or ally three times a day 08/15/2022 Active Social History Tobacco Use: Social History Observation Description Date Details (start date - stop date) Former Smoker NA - NA Sex Assigned At : Social History Observation Description Sex Assigned At Female Tobacco Control (Standard) Question Answer Notes Tobacco use: Former smoker How long has it been since you last smoked? Frandya ter than 10 years Additional Findings: Tobacco non-user Ex-cigaret te smoker Vital Signs Height 63 in 10/31/2024 Weight 278 lbs 10/31/2024 BMI 49.24 kg/m2 10/31/2024 Encounters Encounter Location Date Provider Diagnosis Yovanny Noel III, MD [address] [place] [address] [place] [address] 10/31/2024 Yovanny Noel Asthma J45.909 ; For augusta smoker Z87.891 ; Essential hypertension I10 ; Morbid obesity E66.01 and Lumbar radiculopathy M54.16 Assessments Encounter Date Diagnosis (ICD Code) Assessment Notes Treat ment Notes Treatment Clinical Notes 10/31/2024 Asthma (ICD-10 - J45.909) She is couughing somewhat but her wheezing has resolved. 10/31/2024 Former smoker (ICD-10 - Z87.891) She is highly motivated to not smoke. We have discussed a strategy for maintenance of abstinence in times of stress and illness. 10/31/2024 Essential hypertension (ICD-10 - I10) Her blood pressure has come under control. She is being evaluated by nephrology with metanephrines. An ultrasound of her renal arteries did not show renal artery stenosis. We have discussed weight reduction and sodium restriction. Panorex. We will continue to reduce the blood pressure lifestyle modification. 10/31/2024 Morbid obesity (ICD-10 - E66.01) Her body mass index is 49. She has gained 3 pounds.We have discussed her diet and nutrition. She is going to try to lose weight at a rate of one half pound per week. She declined an offer of injectable semaglutide. 10/31/2024 Lumbar radiculopathy (ICD-10 - M54.16) She has had an acute flare of low back pain. It is very similar to previous episodes. I have given her dexamethasone. She will continue with acetaminophen and rest. She declines to take any more injections or referral to pain management or physiatry. Plan Of Treatment Medication Medication Name Sig Start Date Stop Date Notes Ibuprofen 800 MG 1 tablet Orally Thre e times a day 07/28/2016 Montelukast Sodium 10 MG 1 tablet in the evening Orally Once a day amLODIPine Besylate 10 MG 1 tablet Orall y Once a day Furosemide 40 MG 1 tablet Orally Once a day 02/15/2021 K-Tab 10 MEQ 1 tablet with food Orally Once a day 02/15/2021 Flonase 50 MCG/ACT 1 spray in each nostril Nasally Once a day 09/28/2023 Escitalopram Oxalate 20 MG 1 tablet Oral ly Once a day 12/29/2021 Advair Diskus 500-50 MCG/DOSE 1 puff Inhalation every 12 hrs Combivent 18-103 MCG/ACT 2 puffs Inhalat ion Six times a day Esomeprazole Magnesium 40 MG Take 1 caps ule by mouth once daily guaiFENesin-Codeine 100-10 MG/5ML 10 mL as needed Orally every 6 hrs 07/22/2024 Lisinopril 20MG TAKE ONE TABLET BY MOUTH EVERY DAY Clopidogrel Bisulfate 75 MG TAKE 1 TABLE T BY MOUTH ONCE DAILY Orally Once a day dexAMETHasone 2 MG 1 tablet Orally ever y 12 hrs 10/21/2024 Pantoprazole Sodium 20 MG 1 tablet 1/2 t o 1 hour before morning meal Orally Once a day 10/27/2024 Polyethylene Glycol 3350 17 GM 1 packet mixed with 8 ounces of fluid Orally Once a day Benzonatate 200 MG 1 capsule as needed Orally Three times a day 06/24/2024 Meloxicam 15 MG Take 1 tablet by paras th once daily Loratadine 10 MG 1 tablet Orally Once a day 07/22/2024 Guaiatussin AC 100-10 MG/5ML 10 mL as ne eded Orally every 6 hrs 07/22/2024 Gabapentin 300 MG 1 capsule Orally thr ee times a day 01/23/2023 Simvastatin 40 MG Take 1 tablet by paras th in the evening Orally Once a day hydrALAZINE HCl 50 MG 1 tablet with food Orally Four times a day Metoprolol Tartrate 100 MG Take 1 tablet by mouth twice daily with food 30 day supply Lisinopril 40 MG 1 tablet Orally Once a day 11/12/2023 Pregabalin 50 MG 1 capsule Orally Twi ce a day Cyclobenzaprine HCl 10 MG as directed Or ally three times a day 08/15/2022 Next Appt Details Follow Up: End november, Alondra son: To monitor the patient's asthma symptoms and overall health Provider Name:Yovanny Noel, 12/26/2024 10:00:00 AM, [address] [place] [address], [place] [address], [place], [address], Provider Name:Yovanny Noel 10/05/2025 10:30:00 AM, [address], [address], [place], [address], Progress Notes * Lynnette MCGILL TDOB: [birth year] (63 yo F)Acc No.[id number]:10/31/2024 Patient:?Lynnette MCGILL Provider:?Yovanny Noel MD :1960???Age:63 Y???Sex:Female D ate:10/31/2024 Address:[address] [place], [place] [id number] Subjective: * Chief Complaints: * ???BronchitisSore throatExac erbation of lumbar radiculopathySinus infection * HPI: ???:?Telehealth?Location of provider rendering services:?{...} [address] [facility] [address] ?Location of patient:?address listed in demographics for today's visit ?Patient identification confirmed using:?Name, ?Telehealth method:?Telephone only. Patient not visible to care provider. ?Consent:?Patient verbally consented to treatment, Patient verbally consented to billing insurance company, Patient informed of any privacy concerns related to method of visit ?Total time spent with patient (mins)?15 ? The patient, a 63-year-old female, presented with ongoing issues related to asthma. She reported using her machine and pump to manage her symptoms. She also mentioned that she had been experiencing a fever and a sore throat, but these symptoms have since resolved. The patient also reported a decreased appetite, which she attributed to the recent loss of her grandson. The patient's asthma symptoms appear to be constant, and she did not mention any factors that may have triggered her symptoms. She did not report any other symptoms or vitals. * ROS:?General/Constitutional:?pain?only normal aches and pains.?Chills?denies.?Fatigue?admits.?Fever?denies.?ENT:?Decreased hearing?denies.?Respiratory:?Cough?non-productive.?Cardiovascular:?Chest pain with exertion?denies.?Dyspnea on exertion?denies.?Shortness of breath?Resolved.?Gastrointestinal:?Constipation?occasional.?Admits?Decreased appetite,?denies.?Diarrhea?denies.?Heartburn?denies.?Nausea?denies.?Rectal bleeding?denies.?Vomiting?denies.?Hematology:?bruising?denies.?petechiae?denies.?Swollen glands?none have been noted.?Genitourinary:?Frequent urination?denies.?Musculoskeletal:?Muscle aches?denies.?Painful joints?denies.?Sciatica?denies.?Weakness?denies.?Skin:?Itching?denies.?Rash?denies.?Skin lesion(s)?denies.?Neurologic:?Difficulty speaking?denies.?Dizziness?denies.?Headache?denies.?Low back pain?that is chronic.?Psychiatric:?Depressed mood?denies.? * Medical History:? * Surgical History:?hysterecto my for bleeding Cardiac Catheterization 1Sleeve Gastrectomy [facility] 09/14/21No history * Hospitalization/Major Diagno stic Procedure:?re: Hypertension 07/2018CVA 07/2020No history * Family History:?Father: dece ased 70 yrs, kidney failure, hypertension, alcoholism, diagnosed with HTN.?Mother: alive 68 yrs, breast cancer, depression, hypertension, diagnosed with Cancer, HTN.?1 brother(s) , 3 sister(s) - healthy. 2 son(s) , 2 daughter(s) - healthy. .? 1 of her sons is obese. Her father suffered from alcoholism and her mother from depression. She is not aware of any other family history of mental illness or substance use disorder or addiction. The patient's son recently had the flu. * Social History:?Tobacco Use:?Tobacco Control (Standard)?Tobacco use:?Former smoker ?How long has it been since you last smoked??Greater than 10 years ?Additional Findings: Tobacco non-user?Ex-cigarette smoker ???She is single and working at a [employer]. She has four children, 2 of each, Emir, Fuentes, Benson, Marie. She was born in [place]. Not Found. * Medications:?TakingEsomepraz ole Magnesium 40 MG Capsule Delayed Release Take 1 capsule by mouth once daily Flonase 50 MCG/ACT Suspension 1 spray in each nostril Nasally Once a day Escitalopram Oxalate 20 MG Tablet 1 tablet Orally Once a day Advair Diskus 500-50 MCG/DOSE Aerosol Powder Breath Activated 1 puff Inhalation every 12 hrs Combivent 18-103 MCG/ACT Aerosol 2 puffs Inhalation Six times a day Ibuprofen 800 MG Tablet 1 tablet Orally Three times a day Montelukast Sodium 10 MG Tablet 1 tablet in the evening Orally Once a day amLODIPine Besylate 10 MG Tablet 1 tablet Orally Once a day Furosemide 40 MG Tablet 1 tablet Orally Once a day K-Tab 10 MEQ Tablet Extended Release 1 tablet with food Orally Once a day Cyclobenzaprine HCl 10 MG Tablet as directed Orally three times a day Pregabalin 50 MG Capsule 1 capsule Orally Twice a day Gabapentin 300 MG Capsule 1 capsule Orally three times a day Simvastatin 40 MG Tablet Take 1 tablet by mouth in the evening Orally Once a day hydrALAZINE HCl 50 MG Tablet 1 tablet with food Orally Four times a day Metoprolol Tartrate 100 MG Tablet Take 1 tablet by mouth twice daily with food , Notes to Pharmacist: 30 day supplyLisinopril 40 MG Tablet 1 tablet Orally Once a day Polyethylene Glycol 3350 17 GM Packet 1 packet mixed with 8 ounces of fluid Orally Once a day Benzonatate 200 MG Capsule 1 capsule as needed Orally Three times a day Meloxicam 15 MG Tablet Take 1 tablet by mouth once daily Loratadine 10 MG Tablet 1 tablet Orally Once a day Guaiatussin AC 100-10 MG/5ML Syrup 10 mL as needed Orally every 6 hrs As neededguaiFENesin-Codeine 100-10 MG/5ML Solution 10 mL as needed Orally every 6 hrs Lisinopril 20MG Tablet TAKE ONE TABLET BY MOUTH EVERY DAY Clopidogrel Bisulfate 75 MG Tablet TAKE 1 TABLET BY MOUTH ONCE DAILY Orally Once a day dexAMETHasone 2 MG Tablet 1 tablet Orally every 12 hrs Pantoprazole Sodium 20 MG Tablet Delayed Release 1 tablet 1/2 to 1 hour before morning meal Orally Once a day Medication List reviewed and reconciled with the patientTaking Esomeprazole Magnesium 40 MG Capsule Delayed Release Take 1 capsule by mouth once daily Taking Flonase 50 MCG/ACT Suspension 1 spray in each nostril Nasally Once a day Taking Escitalopram Oxalate 20 MG Tablet 1 tablet Orally Once a day Taking Advair Diskus 500-50 MCG/DOSE Aerosol Powder Breath Activated 1 puff Inhalation every 12 hrs Taking Combivent 18-103 MCG/ACT Aerosol 2 puffs Inhalation Six times a day Taking Ibuprofen 800 MG Tablet 1 tablet Orally Three times a day Taking Montelukast Sodium 10 MG Tablet 1 tablet in the evening Orally Once a day Taking amLODIPine Besylate 10 MG Tablet 1 tablet Orally Once a day Taking Furosemide 40 MG Tablet 1 tablet Orally Once a day Taking K-Tab 10 MEQ Tablet Extended Release 1 tablet with food Orally Once a day Taking Cyclobenzaprine HCl 10 MG Tablet as directed Orally three times a day Taking Pregabalin 50 MG Capsule 1 capsule Orally Twice a day Taking Gabapentin 300 MG Capsule 1 capsule Orally three times a day Taking Simvastatin 40 MG Tablet Take 1 tablet by mouth in the evening Orally Once a day Taking hydrALAZINE HCl 50 MG Tablet 1 tablet with food Orally Four times a day Taking Metoprolol Tartrate 100 MG Tablet Take 1 tablet by mouth twice daily with food , Notes to Pharmacist: 30 day supplyTaking Lisinopril 40 MG Tablet 1 tablet Orally Once a day Taking Polyethylene Glycol 3350 17 GM Packet 1 packet mixed with 8 ounces of fluid Orally Once a day Taking Benzonatate 200 MG Capsule 1 capsule as needed Orally Three times a day Taking Meloxicam 15 MG Tablet Take 1 tablet by mouth once daily Taking Loratadine 10 MG Tablet 1 tablet Orally Once a day Taking Guaiatussin AC 100-10 MG/5ML Syrup 10 mL as needed Orally every 6 hrs As neededTaking guaiFENesin-Codeine 100-10 MG/5ML Solution 10 mL as needed Orally every 6 hrs Taking Lisinopril 20MG Tablet TAKE ONE TABLET BY MOUTH EVERY DAY Taking Clopidogrel Bisulfate 75 MG Tablet TAKE 1 TABLET BY MOUTH ONCE DAILY Orally Once a day Taking dexAMETHasone 2 MG Tablet 1 tablet Orally every 12 hrs Taking Pantoprazole Sodium 20 MG Tablet Delayed Release 1 tablet 1/2 to 1 hour before morning meal Orally Once a day Medication List reviewed and reconciled with the patient * Allergies:?No Known Drug All ergyno[Allergies Verified] Objective: * Vitals:?Ht: 63, Wt: 278, BMI :49.24, Ht-cm: 160.02, Wt-k.1. Assessment: * Assessment: 1.?Asthma - J45.909 (Primary )???Notes :She is couughing somewhat but her wheezing has resolved.???2.?Former smoker - Z87.891???Notes :She is highly motivated to not smoke. We have discussed a strategy for maintenance of abstinence in times of stress and illness.???3.?Essential hypertension - I10???Notes :Her blood pressure has come under control. She is being evaluated by nephrology with metanephrines. An ultrasound of her renal arteries did not show renal artery stenosis. We have discussed weight reduction and sodium restriction. Panorex. We will continue to reduce the blood pressure lifestyle modification.???4.?Morbid obesity - E66.01???Notes :Her body mass index is 49. She has gained 3 pounds.We have discussed her diet and nutrition. She is going to try to lose weight at a rate of one half pound per week. She declined an offer of injectable semaglutide.???5.?Lumbar radiculopathy - M54.16???Notes :She has had an acute flare of low back pain. It is very similar to previous episodes. I have given her dexamethasone. She will continue with acetaminophen and rest. She declines to take any more injections or referral to pain management or physiatry.??? Plan: * Treatment: 2.?Others? Continue Pantoprazole Sodium Tablet Delayed Release, 20 MG, 1 tablet 1/2 to 1 hour before morning meal, Orally, Once a day.?? * Procedure Codes:? * Preventive Medicine:? ??Counseling:?Care goal follow-up plan:?Counseling for abnormal BMI given?Yes ?Above Normal BMI Follow-up?Dietary management education, guidance, and counseling, Dietary needs education, Exercise promotion: strength training, Exercise promotion: stretching, Feeding regime, Giving encouragement to exercise, Lifestyle education regarding diet, Nutrition / feeding management, Nutrition therapy, Prescribed activity/exercise education, Prescribed diet education, Prescribed dietary intake, Special diet education, Weight monitoring , Intervention, Order not done: Medical or Other reason not done ?Smoking/Tobacco Use?Patient counseled on the dangers of tobacco use and urged to quit.?11/28/2024 * Follow Up:?End of November (Alondra son: To monitor the patient's asthma symptoms and overall health) * Images: * Sign off status: Completed true * Provider:?Yovanny Noel MD Date:?10/03 Generated for Noreen fonseca/Joel/eTonealitting on:?12/08/2024 12:36 PM EDT History and Physical Notes * HPI (History of Present Illness) Category Sub-Category Detail Notes Telehealth [facility] {...} [address] [place] [id number] Location of patient:: address listed in demographics for today's visit Patient identification confirmed using:: Name, Telehealth method:: Telephone only. Oxana ent not visible to care provider. Consent:: Patient verbally c onsented to treatment, Patient verbally consented to billing insurance company, Patient informed of any privacy concerns related to method of visit Total time spent with patient (mins): 15
--- OUTSIDE RECORDS SUMMARY | 2024-12-08 12:37 | XMS_ITS | Clinical Summary ---
Author Organization [facility] Address [address] [place] [address] Phone Care Team Providers Care Embroidery Specialist Name Role Phone Yovanny Noel MD Primary Care Provider [phone] Allergies Active Allergy Reactions Criticality Noted Date Comments Citrullus Vulgaris 02/19/2018 Tomato 02/19/2018 Medications albuterol (2.5 MG/3ML) 0.083% nebulizer solution Inhale 2.5 mg 0 Active amLODIPine (NORVASC) 10 MG tablet Take 10 mg by mouth 1 (one) time each day 1 Active cholecalciferol (VITAMIN D-3) 50 MCG (1999 UT) capsule Take 2,000 Units by mouth 1 (one) time each day 1 Active clopidogrel (Plavix) 75 MG tablet Take 1 tablet by mouth 1 (one) time each day 0 Active doxycycline (VIBRA-TABS) 100 MG tablet TAKE 1 TABLET BY MOUTH TWICE DAILY FOR 10 DAYS 1 Active Fluticasone Furoate-Vilanter ol (Breo Ellipta) 200-25 MCG/INH aerosol powder 1 puff by Other route 1 (one) time each day 0 Active fluticasone (FLONASE) 50 MCG/ACT nasal spray Administer 100 mcg into affected nostril(s) 0 Active furosemide (LASIX) 40 MG tablet Take 40 mg by mouth 1 (one) time each day Active hydrALAZINE 50 MG tablet Take 1 tablet by mouth 4 (four) times a day 1 Active hydroCHLOROthiaz lucie 25 MG tablet Take 25 mg by mouth 1 (one) time each day Active lidocaine (LIDODERM) 5 % patch APPLY ONE PATCH TOPICALLY TO CLEAN DRY SKIN. LEAVE ON FOR 12 HOURS THEN REMOVE. MUST WAIT AT LEAST 12 HOURS BEFORE APPLYING PATCH(ES) AGAIN. 1 Active lisinopril 40 MG tablet Take 40 mg by mouth 1 (one) time each day 0 Active loratadine (CLARITIN) 10 MG tablet Take 1 tablet by mouth 1 (one) time each day 0 Active potassium chloride (MICRO-K) 10 MEQ CR capsule Take 10 mEq by mouth Active simvastatin (ZOCOR) 40 MG tablet Take 1 tablet by mouth at bed time Active spironolactone (ALDACTONE) 50 MG tablet TAKE 1 TABLET BY MOUTH ONCE DAILY. STOP POTASSIUM SUPPLEMENT. 1 Active Tiotropium [place] Monohydrate 1.25 MCG/ACT aerosol solution Inhale 1 puff 0 Active Incruse Ellipta 62.5 MCG/INH aerosol powder INHALE 1 PUFF BY MOUTH ONCE DAILY 1 Active Zeasorb-AF 2 % powder APPLY POWDER TOPICALLY TWICE DAILY FOR 90 DAYS 2 Active hydrOXYzine (ATARAX) 50 MG tablet Take 50 mg by mouth 3 (three) times a day if needed 2 Active buPROPion XL (WELLBUTRIN XL) 300 MG 24 hr tablet Take 300 mg by mouth 1 (one) time each day 2 Active escitalopram (LEXAPRO) 20 MG tablet Take 20 mg by mouth 1 (one) time each day 4 Active gabapentin (NEURONTIN) 300 MG capsule TAKE 1 CAPSULE BY MOUTH THREE TIMES DAILY FOR 30 DAYS 3 Active traZODone (DESYREL) 150 MG tablet TAKE 2 TABLETS BY MOUTH ONCE DAILY AT BEDTIME (DOSE INCREASED) 4 Active budesonide (PULMICORT) 0.5 MG/2ML nebulizer solution USE 2 ML IN NEBULIZER ONCE DAILY 4 Active clotrimazole-bet amethasone (LOTRISONE) cream APPLY CREAM TOPICALLY TO RASH AREA ONCE DAILY 4 Active esomeprazole (NexIUM) [address] capsule Take 40 mg by mouth 1 (one) time each day 4 Active metoprolol tartrate (LOPRESSOR) 50 MG tablet Take 1.5 tablets (75 mg total) by mouth in the morning and 1.5 tablets (75 mg total) in the evening. 270 tablet 3 4 01/18/20 25 Active Active Problems Problem Noted Date Diagnosed Date Arthralgia of the pelvic region and thigh 2021 Cerebrovascular accident 04/17/2022 Chest pain 04/17/2022 Chronic pain 04/17/2022 COVID-19 04/17/2022 Essential hypertension 04/17/2022 Ex-smoker 04/17/2022 Morbid obesity 04/17/2022 Muscle weakness 04/17/2022 Radial styloid tenosynovitis (de Quervain) 04/17 Reactive depression (situational) 04/17/2022 Bariatric surgery status 09/27/2021 Eating disorder 08/09/2021 Overview (04/17/2022): Tiffanie Benitez PhD History of cerebrovascular accident with residua l deficit 08/09/2021 Overview (04/17/2022): Left sided weakness Left ventricular hypertrophy 05/21/2019 Multiple nodules of lung 05/21/2019 Obstructive sleep apnea syndrome 02/07/2018 Overview (03/26/2021): [facility] Home Sleep Apnea Test: Date 04/30/2019; Wt 303#; BMI 50; RAQUEL 12, AI 2; HI 11; Unclassified apneas 2; Obstructive apneas 2; Central apneas 2; Mixed apneas 0; hypopneas 40; average oxygen saturation 95% (lowest 82% without saturations <88% for 5% or more of study) - Obstructive Sleep Apnea - mild; mostly hypopneas; without sleep related hypoventilation by 2018 home sleep apnea test. Asthma 12/04/2017 Body mass index 40+ - severely obese 12/04/2017 Hyperlipidemia 12/04/2017 Low blood pressure 12/04/2017 Lumbar radiculopathy 12/04/2017 Non-toxic uninodular goiter 12/04/2017 Social History Tobacco Use Types Packs/Day Years Used Date Smoking Tobacco: Former Smokeless Tobacco: Never Tobacco Cessation:Counseling Given: No Comments:Smoking History Info:Every day Alcohol Use Standard Drinks/Week Comments No 0 (1 standard drink = 0.6 oz pur e alcohol) Comments Unknown Sex and Gender Information Value Date Recorded Sex Assigned at Not on file Legal Sex Female 4:58 PM EST Gender Identity Not on file Sexual Orientation Not on file Last Filed Vital Signs Vital Sign Reading Time Taken Comments Blood Pressure 142/82 01/18/2024 9:47 AM EDT Pulse 107 01/18/2024 9:47 AM EDT Temperature - - Respiratory Rate - - Oxygen Saturation 98% 01/18/2024 9:47 AM EDT Inhaled Oxygen Concentration - - Weight 133 kg (294 lb) 01/18/2024 9:47 AM EDT Height - - Body Mass Index - - Plan of Treatment Upcoming Encounters Date Type Department Care Team (Late st Contact Info) Description 01/19/2025 1:00 PM EDT Office Visit [facility] [address] [id number] Chandler Anne MD [address] [address] Health Maintenance Due Date Last Done Comments Breast Cancer Screening 1961 Pneumococcal Vaccine: Pediat rics (0 to 5 Years) and At-Risk Patients (6 to 64 Years) (1 of 2 - PCV) 1967 Colorectal Cancer Screening: Annual FOBT 2010 Colorectal Cancer Screening: Colonoscopy 2010 Colorectal Cancer Screening: Sigmoidoscopy 2010 Influenza Vaccine (#1) 2024 Hepatitis B Vaccine Aged Out No longe r eligible based on patient's age to complete this topic Insurance MEDICAID DE [facility] PPO ([id number]) [facility] PPO ([id number]) MEDICAID [place] Care Teams Embroidery Specialist Relationship Specialty Start Date End Date Yovanny Noel MD [address] [place] [address] , [address] [place] [address] PCP - General Medical Oncology 01/18/24
== END 2024-12-08 12:23 | disposition home or self-care (01) ==
PROVIDERS: PCP Internal Medicine Medical Oncology; Referring Provider Physician Assistant; Visit Provider Physician Assistant
DX: M54.16 Radiculopathy, lumbar region (principal)
CPT/HCPCS: 99204

== ENCOUNTER → 2024-12-08 11:07 | Outpatient (BNVA) | payer MEDICARE, MEDICAID, SELFPAY | PROVIDERS: PCP Internal Medicine Medical Oncology; Referring Provider Physician Assistant; Visit Provider Physician Assistant | DX: M54.16 Radiculopathy, lumbar region (principal) | CPT/HCPCS: 99202 ==

== ENCOUNTER 2024-12-24 10:08 | Outpatient (AMB) | payer MEDICARE, MEDICAID, SELFPAY ==
--- NOTE | 2024-12-24 10:12 | MHC.OFFVIS ---
Vital Signs 12/24/24 10:16 Height 5 ft 5 in Weight 265 lb 14.04 oz BMI 44.2 BP 130/64 Blood Pressure Location Lt radial Position Sitting Pulse 69 Pulse Source Monitor Intake Visit Reasons: 4 mthj f/up Intake Note: 4 mth f/up/ pt state that she have been feeling allot of weakness and gets tired easy. Shaker Flatwork Required: No Accompanied by: Self / Same As Patient Allergies No Known Allergies Allergy (Verified 08/05/24 10:10) Medication List - Last Reconciled 12/24/24 by Alcon Villalobos MD albuterol sulfate 2.5 mg (3 mL) inhalation Q4H PRN 30 days albuterol sulfate 90 mcg/actuation 2 inhalations inhalation Q6H PRN 30 days amlodipine 10 mg PO DAILY bupropion HCl XL 300 mg PO DAILY cholecalciferol (vitamin D3) 50 mcg PO DAILY clopidogrel 75 mg PO DAILY CPAP (CPAP Machine/Device) As directed doxycycline monohydrate 100 mg PO BID 14 days escitalopram oxalate 20 mg PO DAILY esomeprazole magnesium 40 mg PO DAILY fluticasone furoate-vilanterol 200-25 mcg/dose (Breo Ellipta) 1 inh inhalation DAILY 30 days fluticasone propionate 50 mcg/actuation 1 spray intranasal DAILY [id number]-[id number] 200-62.5-25 mcg (Trelegy Ellipta) 1 inh inhalation DAILY 30 days hydralazine 50 mg PO QID hydrochlorothiazide 25 mg PO DAILY hydroxyzine HCl 50 mg PO TID lisinopril 40 mg PO DAILY loratadine 10 mg PO DAILY 30 days meloxicam 15 mg PO DAILY metoprolol tartrate 50 mg PO BID montelukast 10 mg PO DAILY 30 days mupirocin 2% 1 appl topical BID 7 days nebulizers As directed oxymetazoline 0.05% (Afrin (oxymetazoline)) 2 sprays intranasal Q12H PRN 5 days potassium chloride ER 10 mEq PO DAILY simvastatin 40 mg PO BEDTIME spironolactone 25 mg PO DAILY 90 days trazodone 100 mg PO BID HPI Comments Details: 64-year-old female here for follow-up. She was seen for hypertension previously and her blood pressure has improved on the current medication regimen. She also had exertional chest discomfort for which she underwent cardiac catheterization which did not show any significant coronary artery disease. She has morbid obesity and underwent bariatric surgery. She has lost approximately 90+ lb at this point. She is here for follow-up. She is denying any chest discomfort shortness of breath. Her main complaint is left shoulder pain. 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 She is saying she underwent physiotherapy but there has not been any significant improvement in the shoulder. Blood pressure control is good. Taking medications regularly. 04/23/23: Today she returns for follow-up. She is status post bariatric surgery and continues to lose weight. She has no chest discomfort shortness of breath. She is saying her asthma is under control. She has been experiencing some episodes of dizziness which she describes as lightheadedness. These episodes happen when she is standing or sitting for long time. She feels hot and flushed and starts feeling lightheaded. She is saying she drinks lot of water and tries to hydrate herself. She has never had vasovagal syncope or fainting episodes before. 10/15/2023: She returns for follow-up. She is status post bariatric surgery and was losing weight but unfortunately due to stress he started eating more junk food and has gained some weight now. On last visit blood pressure was mildly elevated but she was complaining of some dizziness and we decided not to increase her medications. On follow-up her blood pressure is higher. She is saying that she has gained some weight also. She has seeing a therapist to see how to cope with stress because she overeats whenever she is under stress. Taking medications regularly. She is on Plavix for previous TIA. Occasionally she feels left side is facial tingling. 12/12/23: She returns for follow-up. She continues to have significantly elevated blood pressure despite being on multiple medication. She was started hydrochlorothiazide last time. She is saying that she has changed her diet and is again beginning to lose some weight. She has lost 3 lb compared to 10/15/2023. Also complaining of some shortness of breath. She is saying shortness of breath can even happen sitting down. Previously had TIA and has been on Plavix. 04/21/2024: She is here for follow-up. She is taking amlodipine 10 mg, hydralazine 50 mg 4 times a day, hydrochlorothiazide 25 mg daily, lisinopril 40 mg daily, metoprolol tartrate 50 mg twice a day and spironolactone 25 mg daily. Her blood pressure in the office today is 130/70. She has been taking medications regularly. Denying any chest discomfort shortness of breath. Previously had TIA and has been on Plavix 75 mg daily. No further neurological complaints from her. She is watching her diet and has lost weight and has lost 6 lb since 02/18/2024. 08/25/2024: She is here for follow-up. Blood pressure is well controlled on multiple medicines right now. She has been exercising and losing weight again. She has been on aspirin and Plavix with previous history of TIA. 12/24/2024: She returns for follow-up. She is complaining of some numbness on the left side of the body which has been present for 2-3 months persistently. She is able to walk and function. She is saying that she gets out of breath with activities but this is significantly better after she had weight loss. Manual blood pressure is 120/80. Her EKG has abnormality with inferior T-wave inversions and slight ST depressions and lateral ST depressions. She is denying any chest discomfort or worsening shortness of breath. She is wearing her CPAP when she is sleeping. 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 CVA (cerebral vascular accident) DEMI on CPAP Dyspnea Chest pressure Asthma Surgical History History of gastric bypass History of left knee surgery History of hysterectomy Family History Mother Breast cancer HTN (hypertension) Father Kidney disease HTN (hypertension) Maternal Uncle Diabetes Son Diabetes Social History Alcohol intake: never Patient Tobacco Use Status: Never used Tobacco Review of Systems Const Denies chills, Denies fatigue, Denies fever(s), Denies frequent falls, Denies weakness, Denies weight gain and Denies weight loss ENT Denies dizziness Card Denies chest pain, Denies leg edema, Denies lightheadedness, Denies palpitations, Denies dyspnea and Denies dyspnea on exertion Resp Denies cough, Denies dyspnea and Denies dyspnea on exertion GI Denies hematochezia Musc Denies abnormal gait, Denies muscle weakness, Denies numbness, Denies radiating pain into limb and Denies tingling Neuro Denies abnormal gait, Denies dizziness, Denies frequent falls, Denies numbness, Denies tingling and Denies weakness Endo Denies fatigue and Denies palpitations Physical Exam Vital Signs: Last Vital Signs Pulse 69 12/24/24 10:16 BP 130/64 12/24/24 10:16 BMI result Body Mass Index 44.2 GENERAL APPEARANCE: in no acute distress, obese. NECK/THYROID: no carotid bruit, no jugular venous distention. SKIN: no suspicious lesions, warm and dry. HEART: no murmurs, regular rate and rhythm, S1, S2 normal. LUNGS: clear to auscultation bilaterally. ABDOMEN: normal, bowel sounds present, soft, nontender, nondistended. EXTREMITIES: no clubbing, cyanosis. PERIPHERAL PULSES: equal. NEUROLOGIC: alert and oriented. Office Procedures EKG Details: Sinus rhythm 69 beats per minute, normal axis, inferior T-wave inversions (new), lateral ST depressions, left ventricular hypertrophy, QTC 437 milliseconds. [id number], Complete Assessment & Plan Assessment & Plan (1) Resistant hypertension: Code(s): I1A.0 - Resistant hypertension Category: Medical (2) Abnormal EKG: Code(s): R94.31 - Abnormal electrocardiogram [ECG] [EKG] Category: Medical Plan Pleasant 64 year female who is here for follow-up. She has history of resistant hypertension. She is on spironolactone 25 mg, metoprolol tartrate 50 mg twice a day, lisinopril 40 mg daily, hydrochlorothiazide 25 mg daily, hydralazine 50 mg 4 times a day and amlodipine 10 mg daily. Blood pressure manually is 120/80. She has left-sided numbness present for 2-3 months. She is going to discuss this with her primary care physician and may need Neurology input for this. She previously had a TIA and has been on Plavix. ECG is showing some inferior and lateral ST changes. I think these are related to left ventricular hypertrophy but would check some basic blood workup including troponin levels. We will also check NT proBNP level and check an echocardiogram to assess for any wall motion abnormalities or left ventricular hypertrophy. She will follow up with us in 4 months. Orders: Orders CA echo transthoracic complete Today I1A.0 - Resistant hypertension Complete Blood Count no Diff Today I1A.0 - Resistant hypertension Basic Metabolic Panel Today I1A.0 - Resistant hypertension B Type Natriuretic Peptide Today I1A.0 - Resistant hypertension Troponin-I High Sensitivity Today I1A.0 - Resistant hypertension Coding Level of Care Code Est Pt Level 4 (08007) Complex EM visit Add On G2211 Diagnoses Resistant hypertension I1A.0 Abnormal EKG R94.31 CPT Codes EKG - CPT: 80675-[id number], Complete ([id number])
[2024-12-24 10:16] VITALS: BP 130/64; PULSE 69; BMI 44.2
--- OUTSIDE RECORDS SUMMARY | 2024-12-24 11:41 | XMS_ITS | Clinical Summary ---
Author Organization [facility] Address [address] [place] [address] Phone Care Team Providers Care Sewing Machine Attachment Tester Name Role Phone Ghazala Noel MD Primary Care Provider [phone] Allergies Active Allergy Reactions Criticality Noted Date Comments [facility] CHOLECALCIFEROL , VITAMIN D3, ORAL Take by mouth. Activ e inhalational spacing device (Aerochamber MV) inhaler 1 Device by Does not apply route 2 times daily. 8 Active WHEAT DEXTRIN ORAL Take 4 g by mouth daily. 1 Active albuterol HFA (PROAIR HFA ; PROVENTIL HFA ; VENTOLIN HFA) 90 mcg/actuation inhaler Inhale 2 Puffs into the lungs every 4 hours as needed for Cough or Wheezing. 0 Active clopidogreL (PLAVIX) 75 mg tablet TAKE [...] inhaler: Take 1 puff daily. 0 Active buPROPion XL (WELLBUTRIN XL) 150 mg 24 hr tabletIndicatio ns:Class 3 severe obesity due to excess calories with serious comorbidity and body mass index (BMI) of 40.0 to 44.9 in adult Take 1 tablet (150 mg total) by mouth 1 (one) time each day. Do not crush, chew, or split. 90 tablet 1 5 025 Active topiramate (TOPAMAX) 100 mg tabletIndicatio ns:Class 3 severe obesity due to excess calories with serious comorbidity and body mass index (BMI) of 40.0 to 44.9 in adult Take 1 tablet (100 mg total) by mouth at bedtime. 30 each 2 5 025 Active buPROPion XL (WELLBUTRIN XL) 150 mg 24 hr tablet Take 1 Tablet by mouth every morning for 90 days. 4 025 Discontin ued(Reord er) topiramate (TOPAMAX) 100 mg tablet Take 1 Tablet by mouth daily for 360 days. 4 025 Discontin ued(Reord er) Active Problems Problem Noted Date Diagnosed Date Eating disorder, unspecified 08/09/2021 Overview (08/26/2024): Tiffanie Benitez PhD History of cerebrovascular a ccident (CVA) with residual deficit 08/09/2021 Overview (08/26/2024): Left sided weakness Left ventricular hypertrophy 05/21/2019 Pulmonary nodules 05/21/2019 DEMI (obstructive sleep apnea) 02/07/2018 Overview (08/26/2024): [facility] Home Sleep Apnea Test: Date 04/30/2019; Wt [...] 2018 home sleep apnea test. Asthma 12/04/2017 Hypertension 12/04/2017 Hyperlipidemia 12/04/2017 Lumbar radiculopathy 12/04/2017 Nontoxic uninodular goiter 12/04/2017 Class 3 severe obesity with body mass index (BMI) of 45.0 to 49.9 in adult 12/04/2017 Encounters Date Type Department Care Team Description 12/15/2024 3:00 PM EDT Office Visit Bariatric Surgery - [address] [address] Julian Hubbard MD Class 3 severe obesity due to excess calories with serious comorbidity and body mass index (BMI) of 40.0 to 44.9 in adult ([facility]) (Primary Dx) 10/13/2024 2:48 PM EST - 10/13/2024 11:59 PM EST Hospital Encounter [facility] CT Scan [address] [place] [address] History of smoking Discharge Disposition: Home or Self Care 10/07/2024 5:37 PM EST - 10/07/2024 11:59 PM EST Hospital Encounter [facility] MRI [address] [place] [id number] Lumbar radiculopathy Discharge Disposition: Home or Self Care from Last 3 Months Surgical History Surgery Date Site/Laterality Comments HYSTERECTOMY PROCEDURE: HISTORICAL HYSTERECTOMY KNEE SURGERY Left PROCEDURE: HISTORICAL KNEE SURGERY Medical History Medical History Date Comments Morbid obesity with BMI of 5 0.0-59.9, adult ([facility]/HCC) 12/04/2017 DX:Morbid obesity with BMI o f 50.0-59.9, adult ([facility]) Hyperlipidemia 12/04/2017 DX:Hyperlipidemi a Nontoxic uninodular goiter 12/04/2017 DX:No ntoxic uninodular goiter Hypertension 12/04/2017 DX:Hypertension Asthma 12/04/2017 DX:Asthma Lumbar radiculopathy 12/04/2017 DX:Lumbar r adiculopathy Eating disorder, unspecified 08/09/2021 DX: Eating disorder, unspecified; COMMENT: Tiffanie Benitez PhD Left ventricular hypertrophy 05/21/2019 DX: Left ventricular hypertrophy DEMI (obstructive sleep apnea) 02/07/2018 DX :DEMI (obstructive sleep apnea); COMMENT: [facility] Home Sleep Apnea Test: Date 04/30/2019; Wt [...] Sign Reading Time Taken Comments Blood Pressure 162/89 12/15/2024 3:18 PM EDT Pulse 75 12/15/2024 3:18 PM EDT Temperature 36.6 ??C (97.8 ??F) 12/15/2024 3:18 PM ED T Respiratory Rate - - Oxygen Saturation - - Inhaled Oxygen Concentration - - Weight 121 kg (266 lb) 12/15/2024 3:18 PM EDT Height 165.1 cm (5' 5 ) 12/15/2024 3:18 PM EDT Body Mass Index 44.26 12/15/2024 3:18 PM EDT Plan of Treatment Upcoming Encounters Date Type Department Care Team (Late st Contact Info) Description 04/21/2025 10:15 AM EDT Office Visit Bariatric Surgery - [place] [address] [facility] [address] [place] [address] Julian Hubbard MD [address] [facility] [address] [place] [address] Health Maintenance Due Date Last Done Comments [...] Signed Date: 10/21/2024 11:11 ET Workstation ID: [id number] Transcribed By: Self Edit Transcribed Date: 10/21/2024 11:01 ET Narrative 10/21/2024 11:11 AM EST History: ??63 year-old 36 pack-year former smoker, asymptomatic, for lung cancer screening. Quit smoking 15 years ago. Mother had breast carcinoma. Comparison: 10/12/23 Technique: Helical volumetric imaging of the thorax was performed, using low- dose technique, without IV contrast. DLP: 168.57 mGy/cm ??CTDIvol: 4.83 mGy CareFamily VCT Iterative reconstruction technique Findings: Lungs and [...] contrast. DLP: 168.57 mGy/cm CTDIvol: 4.83 mGy Vino VoloT Iterative reconstruction technique Findings: Lungs and Airways: [...] Signed Date: 10/21/2024 11:11 ET Workstation ID: [id number] Transcribed By: Self Edit Transcribed Date: 10/21/2024 [...] Signed Date: 10/11/2024 12:37 ET Workstation ID: [id number] Transcribed By: Self Edit Transcribed Date: 10/11/2024 [...] Date: 10/11/2024 12:29 ET Assigned Physician: Mitch Frod Reviewed and Electronically Signed By: Mitch Ford Signed Date: 10/11/2024 12:37 ET Workstation ID: [id number] Transcribed By: Self Edit Transcribed Date: 10/11/2024 12:29 ET us Ghazala Noel MD IMG MRI PROCEDURES Final Resul t * Depression Screening (07/08/2024) Depression Screening Abstracted us Historical Provider HEALTH MAINTENANCE Final Result * CATHI SCREENING DIGITAL (05/08/2024 1:31 PM EDT) Anatomical Region Laterality Modality Mammography 05/08/2024 10:5 9 AM EDT Narrative 05/08/2024 1:31 PM EDT [facility] Diagnostic Imaging Department [address] [place], [place] [id number] Patient: ??PAMELAFACUNDORICH T ?/Age/Sex: 1960 - Unit#: ??[id number] ? Location/Status: ??SPDIMAM/REG CLI ? Mnemonic/Ordering Site: ??DIGSC/SPMAM Ordering Physician: ??GHAZALA NOEL MD [facility] Screening Digital - 05/08/24 - 1125 Report Status:Signed EXAM: [facility] Screening Digital EXAM DATE AND TIME: 05/08/2024 11:26 AM HISTORY: ??Screening. Right breast biopsy in 2009, pathology benign. COMPARISON: ??06/26/22, 06/22/21, 06/18/20 TECHNIQUE: Bilateral digital breast tomosynthesis was performed in the CC and MLO projections. Computer aided detection with [employer] 3D 3.1 was employed. TISSUE DENSITY: a. [...] 1331 Sign date/Time: ??05/08/24 1331 Procedure Note Crystal Carmen MD - 07/16/2024 [facility] Diagnostic Imaging Department [address] [place] [address] Patient: BODIFORD,RICH T /Age/Sex: 1960 - 63 - F Unit#: [id number] [facility]onic/Ordering Site: [facility] Ordering Physician: GHAZALA NOEL MD [facility] Screening Digital - 05/08/24 - 1125 Report Status:Signed EXAM: [facility] Screening Digital EXAM DATE AND TIME: 05/08/2024 11:26 AM HISTORY: Screening. Right breast biopsy in 2009, pathology benign. COMPARISON: 06/26/22, 06/22/21, 06/18/20 TECHNIQUE: Bilateral digital breast tomosynthesis was performed in the CCand MLO projections. Computer aided detection with [employer] 3D 3.1was employed. TISSUE DENSITY: a. The [...] Date/Time: 05/08/24 1331 Sign date/Time: 05/08/24 1331 us Ghazala Noel MD IMG BI PROCEDURES Final Result * Annual BMP Blood Test (01/30/2023) Annual BMP Blood Test Abstracted us Historical Provider HEALTH MAINTENANCE Final Result * (ABNORMAL) Lipid panel (04/22/2021) LDL/HDL Ratio 6(A) 0 - 4 Triglycerides 159(A) 0 - 150 mg/dL Cholesterol 273(A) 0 - 200 mg/dL HDL 48 >=40 mg/dL LDL Cholesterol 194(A) 0 - 100 mg/dL Blood Venous blood specimen / Unknown Historical Provider LAB BLOOD ORDERABLES Frieda l Result from Last 3 Months or Most Recently Relevant to Health Maintenance Insurance MEDICAID - [place] MEDICARE Care Teams Sewing Machine Attachment Tester Relationship Specialty Start Date End Date Ghazala Noel MD [address] [address] PCP - General Oncology 07/25/24
--- OUTSIDE RECORDS SUMMARY | 2024-12-24 11:41 | XMS_ITS | Encounter Summary ---
Author Organization [facility] Address [address] [place] [address] Care Team Providers Care Foam Machine Operator Name Role Phone Yovanny Noel MD Primary Care Provider [phone] Reason for Visit * Reason Comments Follow-up Encounter Details Date Type Department Care Team (Late st Contact Info) Description 12/15/2024 3:00 PM EDT Office Visit Bariatric Surgery - [place] [address] [place] [phone] Julian Hubbard MD [address] [facility] [address] [place] [address] Class 3 severe obesity due to excess calories with serious comorbidity and body mass index (BMI) of 40.0 to 44.9 in adult (CMS/HCC) (Primary Dx) Social History Tobacco Use Types Packs/Day Years [...] AM EST Sexual Orientation Not on file documented as of this encounter Last Filed Vital Signs Vital Sign Reading [...] Mass Index 44.26 12/15/2024 3:18 PM EDT documented in this encounter Ordered Prescriptions Prescription Sig Dispense Quantity Refills Last Filled Start Date End Date topiramate (TOPAMAX) 100 mg tabletIndications: Class 3 severe obesity due to excess calories with serious comorbidity and body mass index (BMI) of 40.0 to 44.9 in adult Take 1 tablet (100 mg total) by mouth at bedtime. 30 each 2 12/15/2024 03/15/2025 buPROPion XL (WELLBUTRIN XL) 150 mg 24 hr tabletIndications: Class 3 severe obesity due to excess calories with serious comorbidity and body mass index (BMI) of 40.0 to 44.9 in adult Take 1 tablet (150 mg total) by mouth 1 (one) time each day. Do not crush, chew, or split. 90 tablet 1 12/15/2024 06/13/2025 documented in this encounter Progress Notes * Julian Hubbard MD - 12/15/2024 3:00 PM EDT Ms. Mcgill is a 64 y.o. year old female who presents for surgical follow up regarding obesity. HPI: Ms. Mcgill had sleeve in 2019. Has lost 80 lbs. Has lost 12 lbs on medication. White coat syndrome. BMI is 44.26. Lipids normal, FBS normal. ROS: GENERAL: No malaise, significant unintentional weight loss, fever, chills or night sweats. HEENT: No changes in hearing or vision, no nose bleeds or other nasal problems. NECK: No lumps, goiter, pain or significant neck swelling RESPIRATORY: No cough, wheezing or shortness of breath CARDIOVASCULAR: No chest pain, leg swelling or palpitations. GI: No abdominal discomfort, nausea, vomiting, or change in bowel habits. : No dysuria, frequency or incontinence. SKIN: No lesions, rash or itching. HEMATOLOGY: No prolonged bleeding, easy bruisability. LYMPHOLOGY No swollen nodes. MUSCULOSKELETAL: No abnormalities. NEURO: No abnormalities. All other systems reviewed which are negative. PAST MEDICAL HISTORY: Patient Active Problem List Diagnosis Date Noted Date Diagnosed Eating disorder, unspecified 08/09/2021 History of cerebrovascular accident (CVA) with residual deficit 08/09/2021 Left ventricular hypertrophy 05/21/2019 Pulmonary nodules 05/21/2019 DEMI (obstructive sleep apnea) 02/07/2018 Asthma 12/04/2017 Hypertension 12/04/2017 Hyperlipidemia 12/04/2017 Lumbar radiculopathy 12/04/2017 Nontoxic uninodular goiter 12/04/2017 Class 3 severe obesity with body mass index (BMI) of 45.0 to 49.9 in adult ([facility]) 12/04/2017 PAST SURGICAL HISTORY: Past Surgical History: Procedure Laterality Date HYSTERECTOMY PROCEDURE: HISTORICAL HYSTERECTOMY KNEE SURGERY Left PROCEDURE: HISTORICAL KNEE SURGERY SOCIAL HISTORY: Social History Tobacco Use Smoking status: Former Smokeless tobacco: Never Substance Use Topics Alcohol use: No FAMILY HISTORY: Family History Problem Relation Name Age of Onset Breast cancer Mother depression, HTN Kidney failure Father HTN, ETOH, Diabetes Uncle Diabetes Son Family Status Relation Name Status Mother Father Uncle Alive maternal Son Alive No partnership data on file MEDICATIONS: Medications Discontinued During This Encounter Medication Reason buPROPion XL (WELLBUTRIN XL) 150 mg 24 hr tablet Reorder topiramate (TOPAMAX) 100 mg tablet Reorder ACTIVE MEDICATIONS: Outpatient Medications Marked as Taking for the 12/15/24 encounter (Office Visit) with Julian Hubbard MD Medication Sig Dispense Refill buPROPion XL (WELLBUTRIN XL) 150 mg 24 hr tablet Take 1 tablet (150 mg total) by mouth 1 (one) timeeach day. Do not crush, chew, or split. 90 tablet 1 topiramate (TOPAMAX) 100 mg tablet Take 1 tablet (100 mg total) by mouth at bedtime. 30 each 2 ALLERGIES: Allergies Allergen Reactions Tomato Watermelon PHYSICAL EXAM: Visit Vitals BP (!) 162/89 Pulse 75 Temp 36.6 ??C (97.8 ??F) (Temporal) Ht 1.651 m (65 ) Wt 121 kg (266 lb) BMI 44.26 kg/m?? OB Status Unknown Smoking Status Former BSA 2.24 m?? APPEARANCE: Alert and oriented and in no acute distress EYES: Conjunctiva normal and sclera normal and anicteric. NECK: Neck supple with no adenopathy. HEART: RRR with normal S 1 and S 2, no murmurs, no gallops. LUNG: Clear to auscultation LYMPH NODES: No gross cervical or clavicular lymphadenopathy. ABDOMEN: Bowel sounds normoactive, soft, non-tender, non-distended, EXTREMITIES: Extremities warm and well perfused without clubbing, cyanosis, or edema. SKIN: Skin color and texture normal. No rashes or lesions. NEUROLOGIC: Alert and oriented ??3. No motor or sensory deficits in the extremities. LABS/IMAGING: ASSESSMENT: 1. Class 3 severe obesity due to excess calories with serious comorbidity and body mass index (BMI)of 40.0 to 44.9 in adult ([facility]) PLAN: 1. Will continue oral anti-obesity medication. She has been losing weight. She will keep an eye on the BP. May need to stop Wellbutrin. 2. F/U in 3 months. documented in this encounter Plan of Treatment Upcoming Encounters Date Type Department Care Team (Late st Contact Info) Description 04/21/2025 10:15 AM EDT Office Visit Bariatric Surgery - [place] [address] [facility] [address] [place] [address] Julian Hubbard MD [address] [facility] [address] [place] [address] documented as of this encounter Visit Diagnoses Diagnosis Class 3 severe obesity due to excess calories with serious comorbidity and body mass index (BMI) of 40.0 to 44.9 in adult- Primary documented in this encounter Discontinued Medications Medication Sig Discontinue Reason Start Date End Da te buPROPion XL (WELLBUTRIN XL) 150 mg 24 hr tablet Take 1 Tablet by mouth every morning for 90 days. Reorder 07/08/2024 12/15/2024 topiramate (TOPAMAX) 100 mg tablet Take 1 Tablet by mouth daily for 360 days. Reorder 07/08/2024 12/15/2024 documented as of this encounter Care Teams Foam Machine Operator Relationship Specialty Start Date End Date Yovanny Noel MD [address] [address] PCP - General Oncology 07/25/24 documented as of this encounter
--- OUTSIDE RECORDS SUMMARY | 2024-12-24 11:41 | XMS_ITS ---
Author Organization Yovanny Noel III, MD Address [address] [place] [address] Care Team Providers Care Venetian Blind Washer Name Role Phone Yovanny Noel Primary Care Provider Medications Medication SIG (Take, Route, Frequency, Duration) Notes Start Date End Date Status Pantoprazole Sodium 20 MG 1 tablet 1/2 t o 1 hour before morning meal Orally Once a day for 30 days 10/27/2024 Active Social History Sex Assigned At : Social History Observation Description Sex Assigned At Female Encounters Encounter Location Date Provider Diagnosis Yovanny Noel III, MD [address] [place] [address] [place] [address] 10/27/2024 Yovanny Noel Plan Of Treatment Medication Medication Name Sig Start Date Stop Date Notes Pantoprazole Sodium 20 MG 1 tablet 1/2 t o 1 hour before morning meal Orally Once a day for 30 days 10/27/2024 Next Appt Details Provider Name:Yovanny Noel, 12/26/2024 10:00:00 AM, [address] [facility] [address], [place], [address], Provider Name:Yovanny Noel, 10/05/2025 10:30:00 AM, [address] [place] [address] [address], [place], [address], Progress Notes * PAMELAMARNISHIVA Lynnette TDOB: [birth year] (63 yo F)Acc No.[id number]:10/27/2024 Patient:?Lynnette MCGILL :1960???Age:63 Y???Sex:Female Address:[address] [place] [address] * Refills? Start Pantoprazole Sodium Tablet Delayed Release, 20 MG, Orally, 30, 1 tablet 1/2 to 1 hour before morning meal, Once a day, 30 days, Refills=11 * true * Date:? Generated for Noreen fonseca/Joel/eTransmitting on:?12/24/2024 11:41 AM EDT
--- OUTSIDE RECORDS SUMMARY | 2024-12-24 11:41 | XMS_ITS ---
Author Organization Yovanny Noel III, MD Address [address] [place] [address] Care Team Providers Care Dissolver Operator Name Role Phone Yovanny Noel Primary Care Provider [phone] Allergies Allergen (clinical drug ingredient) Drug/Non Drug [...] Date Provider Diagnosis Yovanny Noel III, MD [address] [place] [address] [place] [address] 10/31/2024 Yovanny Noel Asthma J45.909 ; For [...] health Provider Name:Yovanny Noel, 12/26/2024 10:00:00 AM, [address] [place] [address], [place] [address], [place], [address], Provider Name:Yovanny Noel 10/05/2025 10:30:00 AM, [address], [address], [place], [address], Progress Notes * Lynnette MCGILL TDOB: [birth year] (63 yo F)Acc No.[id number]:10/31/2024 Patient:?Lynnette MCGILL Provider:?Yovanny Noel MD :1960???Age:63 Y???Sex:Female D ate:10/31/2024 Address:[address] [place], [place] [id number] Subjective: * Chief Complaints: * ???BronchitisSore throatExac erbation of lumbar radiculopathySinus infection * HPI: ???:?Telehealth?Location of provider rendering services:?{...} [address] [facility] [address] ?Location of patient:?address listed in demographics for [...] ???She is single and working at a [employer]. She has four children, 2 of each, Emir, Fuentes, Benson, Marie. She was born in [place]. Not Found. * Medications:?TakingEsomepraz ole Magnesium 40 [...] Provider:?Yovanny Noel MD Date:?10/03 Generated for Noreen fonseca/Joel/eTjosesmitting on:?12/24/2024 11:41 AM EDT History and Physical Notes * HPI (History of Present Illness) Category Sub-Category Detail Notes Telehealth Location of [facility] rendering services:: {...} [address] [place] [address] Location of patient:: address listed in demographics [...]
--- OUTSIDE RECORDS SUMMARY | 2024-12-24 11:41 | XMS_ITS | Data Portability ---
Author Organization [place] - [facility], Allergy Address [address] [address] Care Team Providers Care Crane Man Name Role Phone GHAZALA COX Primary Care [...] review CT sinus which was performed at [facility] 10/07/24. Reviewed with the patient that the [...] Imaging CT, maxillofa cial, w/o contrast 2023 [email or web address] [facility] [place], [facility]0 [facility], [address], [place], [address], 10/08/2024 15:43:52 Medication Orders None recorded. Patient TargetsNo targets recorded. Patient Instructions Encounter Date Encounter Id Patient Instructions Last Modified By Organization Details Last Modified Time 11/12/2024 [id number] Nursing Documentation for Allergy Testing: Ordering Provider [...] >100. 00 Very High Not Available [facility] ([facility]) [address] [place], [address], 11/14/2024 12:20:42 11/12/19 25 11/14/2024 ALLER GENS, ZONE 1 O440-SyM D pteronyssinu s <0.10 kU/L class 0 Not Available [facility] ([facility]) [address] [place], [address], 11/14/2024 12:20:42 11/12/19 25 11/14/2024 ALLER GENS, ZONE 1 F765-WiW D farinae <0.10 kU/L class 0 Not Available [facility] ([facility]) [address] [place], [address], 11/14/2024 12:20:42 11/12/19 25 11/14/2024 ALLER GENS, ZONE 1 I739-IpY CAT dander <0.10 kU/L class 0 Not Available [facility] ([facility]) [address] [place], [address], 11/14/2024 12:20:42 11/12/19 25 11/14/2024 ALLER GENS, ZONE 1 Z863-AuM dog dander <0.10 kU/L class 0 Not Available [facility] ([facility]) [address] [facility], [place], [address], 11/14/2024 12:20:42 11/12/19 25 11/14/2024 ALLER GENS, ZONE 1 a400-AhZ bermuda grass <0.10 kU/L class 0 Not Available [facility] ([facility]) [address] [facility], [place], [address], 11/14/2024 12:20:42 11/12/19 25 11/14/2024 ALLER GENS, ZONE 1 x142-RgR bluegrass, jannie 0.14 kU/L class 0/I abnormal Not Available [facility] ([facility]) [address] [place], [address], 11/14/2024 12:20:42 11/12/19 25 11/14/2024 ALLER GENS, ZONE 1 w228-BmN bahia grass <0.10 kU/L class 0 Not Available [facility] ([facility]) [address] [place], [address], 11/14/2024 12:20:42 11/12/19 25 11/14/2024 ALLER GENS, ZONE 1 E845-HvK cockroach, hungarian <0.10 kU/L class 0 Not Available [facility] ([facility]) [address] [place], [address], 11/14/2024 12:20:42 11/12/19 25 11/14/2024 ALLER GENS, ZONE 1 W039-JxY penicillium chrysogen <0.10 kU/L class 0 Not Available [facility] ([facility]) [address] [place], [address], 11/14/2024 12:20:42 11/12/19 25 11/14/2024 ALLER GENS, ZONE 1 O364-RiH cladosporium herbarum <0.10 kU/L class 0 Not Available [facility] ([facility]) [address] [facility] [place], [address], 11/14/2024 12:20:42 11/12/19 25 11/14/2024 ALLER GENS, ZONE 1 A471-YuB aspergillus fumigatus <0.10 kU/L class 0 Not Available [facility] ([facility]) [address] [place], [address], 11/14/2024 12:20:42 11/12/19 25 11/14/2024 ALLER GENS, ZONE 1 O970-LpW mucor racemosus <0.10 kU/L class 0 Not Available [facility] ([facility]) [address] [facility] [place], [address], 11/14/2024 12:20:42 11/12/19 25 11/14/2024 ALLER GENS, ZONE 1 B926-NrP alternaria alternata <0.10 kU/L class 0 Not Available [facility] ([facility]) [address] [place], [address], 11/14/2024 12:20:42 11/12/19 25 11/14/2024 ALLER GENS, ZONE 1 B654-PsG stemphylium herbarum <0.10 kU/L class 0 Not Available [facility] ([facility]) [address] [place], [address], 11/14/2024 12:20:42 11/12/19 25 11/14/2024 ALLER GENS, ZONE 1 Z348-YsY common silver birch 0.12 kU/L class 0/I abnormal Not Available [facility] ([facility]) [address] [place], [address], 11/14/2024 12:20:42 11/12/19 25 11/14/2024 ALLER GENS, ZONE 1 L897-WaF oak, white <0.10 kU/L class 0 Not Available [facility] ([facility]) [address], [place], [address], 11/14/2024 12:20:42 11/12/19 25 11/14/2024 ALLER GENS, ZONE 1 E165-WfX elm, hungarian <0.10 kU/L class 0 Not Available [facility] ([facility]) [address], [place], [address], 11/14/2024 12:20:42 11/12/19 25 11/14/2024 ALLER GENS, ZONE 1 I007-AfI carmelita, white <0.10 kU/L class 0 Not Available [facility] ([facility]) [address], [place], [address], 11/14/2024 12:20:42 11/12/19 25 11/14/2024 ALLER GENS, ZONE 1 A883-HtG maple/box elder <0.10 kU/L class 0 Not Available [facility] ([facility]) [address], [place], [address], 11/14/2024 12:20:42 11/12/19 25 11/14/2024 ALLER GENS, ZONE 1 Z111-NdI hazelnut tree <0.10 kU/L class 0 Not Available [facility] ([facility]) [address], [place], [address], 11/14/2024 12:20:42 11/12/19 25 11/14/2024 ALLER GENS, ZONE 1 W983-HlB hickory, white <0.10 kU/L class 0 Not Available [facility] ([facility]) [address] [facility], [place], [address], 11/14/2024 12:20:42 11/12/19 25 11/14/2024 ALLER GENS, ZONE 1 U547-CnY white mulberry <0.10 kU/L class 0 Not Available [facility] ([facility]) [address] [facility], [place], [address], 11/14/2024 12:20:42 11/12/19 25 11/14/2024 ALLER GENS, ZONE 1 E583-RnE cedar, mountain <0.10 kU/L class 0 Not Available [facility] ([facility]) [address] [facility], [place], [address], 11/14/2024 12:20:42 11/12/19 25 11/14/2024 ALLER GENS, ZONE 1 M078-RdV ragweed, short 0.21 kU/L class 0/I abnormal Not Available [facility] ([facility]) [address] [facility], [place], [address], 11/14/2024 12:20:42 11/12/19 25 11/14/2024 ALLER GENS, ZONE 1 J648-RhI mugwort <0.10 kU/L class 0 Not Available [facility] ([facility]) [address] [facility], [place], [address], 11/14/2024 12:20:42 11/12/19 25 11/14/2024 ALLER GENS, ZONE 1 I495-WtO plantain, czech <0.10 kU/L class 0 Not Available [facility] ([facility]) [address] [place], [address], 11/14/2024 12:20:42 11/12/19 25 11/14/2024 ALLER GENS, ZONE 1 L269-HvM pigweed, common <0.10 kU/L class 0 Not Available [facility] ([facility]) [address] [place], [address], 11/14/2024 12:20:42 11/12/19 25 11/14/2024 ALLER GENS, ZONE 1 O788-HvN sheep sorrel <0.10 kU/L class 0 Not Available [facility] ([facility]) [address] [place], [address], 11/14/2024 12:20:42 11/12/19 25 11/14/2024 ALLER GENS, ZONE 1 B491-HhK nettle <0.10 kU/L class 0 Not Available [facility] ([facility]) [address] [facility], [place], [address], 11/14/2024 12:20:42 11/12/19 25 11/14/2024 IMMUN OGLOB ULIN E, TOTAL immunoglobul in E, total 2 IU/mL 6-495 below low normal Not Available [facility] ([facility]) [address] [facility], [place], [address], 11/14/2024 12:20:42 10/08/19 25 10/07/2024 CT, maxil lofac ial, w/o contr ast No observ ation record ed. [email or web address] [facility] [place] [address], [address], 10/09/2024 09:16:23 10/08/19 25 10/07/2024 CT, maxil lofac ial, w/o contr ast No observ ation record ed. [email or web address] [facility] [place] [address], [address], 10/09/2024 09:16:23 10/08/19 25 10/07/2024 CT, maxil lofac ial, w/o contr ast No observ ation record ed. BARCODE [facility] [place] [address], [address], 10/08/2024 16:03:22 11/12/19 25 mary metry testi ng* No observ ation record ed. [email or web address] Not Available 2024 18:02:42 Result Notes None recorded. Problems Name Problem SNOMED Code Status Onset Date Resolution Date Notes Provider Name and Address Organization Details Recorded Time Severe obesity 70571944323 104 Active 2020 Morbid (severe) obesity due to excess calories; Note: Date Diagnosed : 06/16/2021 11:31 AM (E66.01) Not Available [facility] 4 03:25:06 Obstructi ve sleep apnea syndrome 03392120 Active 2020 Obstructi ve sleep apnea (adult) (pediatri c); Note: Date Diagnosed : 06/16/2021 11:31 AM (G47.33) Not Available [facility] 4 03:25:07 Uncomplic ated asthma 753833549 Active 2020 Unspecifi ed asthma, uncomplic ated; Note: Date Diagnosed : 06/16/2021 11:31 AM (J45.909) Not Available [facility] 4 03:25:07 Allergic rhinitis caused by pollen 63841088 Active 2020 Allergic rhinitis due to pollen; Note: Date Diagnosed : 06/16/2021 11:31 AM (J30.1) Not Available [facility] 4 03:25:06 Chronic sinusitis 29312973 Active 2023 LILLIAM VELAZQUEZ PA-C [address], [place], [address] , [facility] - [facility] 4 11:00:07 Atypical facial pain 21861987 Active 2024 LILLIAM VELAZQUEZ PA-C [address], [place], [address] , [facility] - [facility] 5 15:35:35 Allergic rhinitis 04161936 Active [address]24 [facility], [facility] [address], [place], [address] , [facility] - [facility] 5 09:19:15 Problem Notes None recorded. Procedures Surgical History Date Name Laterality Status Provider Name and Address Organization Details Recorded Time 4 JMSNasal/Sinus Endoscopy completed LILLIAM VELAZQUEZ PA-C [address], [place], [address], [facility] - [facility] 09/19/2024 12:23:56 Imaging Results Imaging Date Name Status LastModified by Organiz ation Details LastModified Time 10/07/2024 CT, maxillofacial, w/o contrast completed [facility] [place] [address], [address], 10/09/2024 09:16:23 10/07/2024 CT, maxillofacial, w/o contrast completed [facility] [place] [address], [address], 10/09/2024 09:16:23 10/07/2024 CT, maxillofacial, w/o contrast completed [facility] [place] [address], [address], 10/08/2024 16:03:22 11/12/2024 spirometry testing* completed [email or web address] [...] 40 mg tablet active Medicati on ID: 138536 B rand Name: lisset lj Send Method: [...] 50 mg tablet active Medicati on ID: 544806 B rand Name: metoprol ol tartrate Send [...] mg capsule 11/12 completed Medicati on ID: 539657 B rand Name: gabapent in Send Method: [...] %) nasal spray active Medicati on ID: 142930 B rand Name: azelasti ne Send Method: [...] 50 mg tablet active Medicati on ID: 791637 B rand Name: spironol actone S end [...] tablet,de layed release active Medicati on ID: 705855 B rand Name: Prilosec OTC Send Method: [...] (2,000 unit) capsule active Medicati on ID: 368475 B rand Name: Vitamin D3 Send Method: E-Prescr ibed Sub s Allowed: subs OK Medic ationGen ericName : Vitamin D3 Not Available Not Available Not Available Incruse Ellipta 62.5 mcg/actua tion powder for inhalatio n active Medicati on ID: 679818 B rand Name: Incruse Ellipta Send Method: E-Prescr ibed Sub s Allowed: subs OK Speci al Instruct ion: INHALE 1 PUFF BY MOUTH ONCE DAILY Me dication GenericN judith: Incruse Ellipta Not Available Not Available Not Available Breo Ellipta 200 mcg-25 mcg/dose powder for inhalatio n active Medicati on ID: 522512 B rand Name: Breo Ellipta Send Method: [...] Address Organization Details Last Updated DateTime 09/19/2024 610405.27 g 46.4 kg/m2 165.1 cm Jessica Umanzor [place] - [facility] 09/19/2024 10:19:27 Date Recorded Body height Body mass index (BMI) Body weight Provider Name and Address Organization Details Last Updated DateTime 11/04/2024 165.1 cm 45.8 kg/m2 378245.9 g Emily Ba [place] - [facility] 11/04/2024 14:55:31 Date Recorded Body height Body mass index (BMI) Body weight Oxygen saturation Oxygen saturation in Arterial blood by Pulse oximetry Heart rate Systolic blood pressure Diastolic blood pressure Systolic blood pressure Diastolic blood pressure Provider Name and Address Organization Details Last Updated DateTime 165.1 cm 45.8 kg/m2 724617. 9 g 98 % 98 % 76 /min 160 mm[Hg] 94 mm[Hg] 172 mm[Hg] 96 mm[Hg] ETELVINA VERONICA, [facility] 100 [facility], E [facility], [place], [address], [place] - [facility] 10:14:58 Social History Question Answer Notes LastModified by Organizat ion Details LastModified Time Tobacco Smoking Status Former Smoker [facility] VERONICA, [facility] [address] [facility],[place] [address], [place], [address], [facility] - [facility] 11/12/2024 09:17:45 When Did You Quit [...] Emphysema N Migraines N Thyroid Problems N Depression N COPD N Developmental Delay N Glaucoma N Nasal or Sinus Problems N Anemia N Immune System Disorder N Anesthesia Complications N Heart Attack ([place]) N Other Skin Condition N Diabetes N Rhinitis N Bleeding Disorder N Food Allergy Y Hearing Loss N Arthritis N Hyperlipidemia N Cancer N Stroke N Dementia N Nasal polyps N Asthma Y Sleep Disorder Y High Cholesterol Y GERD/Reflux N Liver Disease N Headaches N Fibromyalgia N Hypertension N Speech Delay N Kidney Disease N Gynecological HistoryNo gynecological history recorded. Obstetrics History GPAL:G 0 P 0 0 0 0 Past Encounters Encounter ID Performer Location Encounter Start Date Encounter Closed Date Diagnosis/Indication Diagnosis SNOMED-CT Code Diagnosis ICD10 Code Diagnosis Note [id number] FER ZAVALA MD [facility] [address] [place] [address] 09/19/2024 10:02:24 09/19/2024 11:03:03 Allergic rhinitis caused by pollen 46428410 J30.1 Chronic sinusitis 154251 00 J32.9 [id number] SHRAVAN JUDD MD [facility] 100 [facility] [place] [address] 11/04/2024 14:44:00 11/04/2024 15:08:34 Allergic rhinitis caused by pollen 93125549 J30.1 Atypical facial pain 713 [address] G50.1 [id number] ETELVINA VERONICA, A All[facility] 100 [facility] 100 [place] [address] 11/12/2024 08:46:13 11/12/2024 10:45:34 Allergic rhinitis caused by pollen 07709371 J30.1 Health Concerns Section Related Observation LastModified by Organization Detai ls LastModified Time None Recorded Concern Status LastModified by Organization Details LastModified Time None Recorded Advance Directives Directive None Recorded Payers Encounter Date Sequence Insurance Name Policy Number Policy Mei Covered Member ID Mei Member ID Guarantor Name 09/19/2024 1 [place] [employer] Lynnette T Bodiford [id number] Lynnette T Bodiford 09/19/2024 2 [place] [facility] Lynnette T Bodiford [id number] Lynnette T Bodiford 11/04/2024 1 [place] [employer] Lynnette T Bodiford [id number] Lynnette T Bodiford 11/04/2024 2 [place] [facility] Lynnette T Bodiford [id number] Lynnette T Bodiford 11/12/2024 1 [place] [employer] Lynnette T Bodiford [id number] Lynnette T Bodiford 11/12/2024 2 [place] [facility] Lynnette T Bodiford [id number] Lynnette T Bodiford Notes Date Note Type [...] left upper molars. FER RIVERA MD [address] [facility] [address] [facility], [place], [address], [facility] - [facility] 09/19/2024 12:45:42 11/04/2024 text/html 63 year old kalin linares presents to review CT sinus which was performed at [facility] 10/07/24. She reports that her left maxillary pain is improving. She has allergy tested scheduled. SHRAVAN JUDD MD [address] [facility] [address],[place] [address], [place], [address], [facility] - [facility] 11/06/2024 08:24:49 11/12/2024 text/html Pt presents for allergy testing. Due to elevated bp due to holding her beta ghislaine and other 3 meds and having poor pfts Dr. Hernandez wanted pt to have RAST and to follow up with Dr. Rivera to figure out next steps SHRUTI MI [address] [facility] [address] [facility], [place], [address], [facility] - [facility] 11/12/2024 10:45:27 OBGyn Episode No OBEpisode recorded.
--- OUTSIDE RECORDS SUMMARY | 2024-12-24 11:42 | XMS_ITS ---
Author Organization Yovanny Noel III, MD Address [address] [place] [place] [address] Care Team Providers Care Surfacing Machine Operator Name Role Phone Yovanny Noel Primary Care Provider REASON FOR VISIT Message Social History Sex Assigned At : Social History Observation Description Sex Assigned At Female Encounters Encounter Location Date Provider Diagnosis Yovanny Noel III, MD [address] [place] [address] [place] [address] 10/21/2024 Yovanny Noel Plan Of Treatment Next Appt Details Provider Name:Yovanny Noel, 12/26/2024 10:00:00 AM, [address] [facility] [place] [place], [address], Provider Name:Yovanny Noel, 10/05/2025 10:30:00 AM, [address] [facility] [place], [address], Progress Notes * Lynnette SUMNER TDOB: [birth year] (63 yo F)Acc No.[id number]:10/21/2024 Patient:?Lynnette SUMNER :1960???Age:63 Y???Sex:Female Address:[address] [place] [id number] * true * Date:? Generated for Marii marian/Joel/eTransmitting on:?12/24/2024 11:42 AM EDT
--- OUTSIDE RECORDS SUMMARY | 2024-12-24 11:42 | XMS_ITS | Clinical Summary ---
Author Organization [facility] Address [address] [place] [address] Phone Care Team Providers Care Cattle Manager Name Role Phone Yovanny Noel MD Primary Care Provider [phone] Allergies Active Allergy Reactions Criticality Noted Date [...] DAILY. STOP POTASSIUM SUPPLEMENT. 1 Active Tiotropium [place] Monohydrate 1.25 MCG/ACT aerosol solution Inhale 1 [...] Obstructive sleep apnea syndrome 02/07/2018 Overview (03/26/2021): [facility] Home Sleep Apnea Test: Date 04/30/2019; [...] Office Visit [facility] [address] [address] Chandler Anne MD [address] [phone] Health Maintenance Due Date Last Done Comments [...] patient's age to complete this topic [place] Care Teams Cattle Manager Relationship Specialty Start Date End Date Yovanny Noel MD [address] [place] [address] , [address] [place] [address] PCP - General Medical Oncology 01/18/24
== END 2024-12-24 10:52 | disposition home or self-care (01) ==
LOC: HO.HCS 10:09
PROVIDERS: PCP Internal Medicine Medical Oncology; Visit Provider Internal Medicine Cardiovascular Disease
DX: I1A.0 Resistant hypertension (principal); R94.31 Abnormal electrocardiogram [ECG] [EKG]
CPT/HCPCS: 93010; 99214; G2211

== ENCOUNTER 2024-12-24 10:08 | Outpatient (REF) | payer MEDICARE, MEDICAID, SELFPAY ==
[2024-12-24 11:23] LABS: Hematocrit 34.2 % (37.0-47.0); Mean Corpuscular HGB Conc 32.2 g/dl (31.0-35.0); Mean Corpuscular Hemoglobin 26.8 pg (27.0-33.0); Mean Corpuscular Volume 83.4 fL (80.0-98.0); Mean Platelet Volume 10.8 fL (9.4-12.3); Platelet Count 214 X10*3/uL (160-400); Red Cell Distribution Width 12.6 % (11.0-16.0)
[2024-12-24 11:51] LABS: Anion Gap 11 (12-20); Blood Urea Nitrogen 32 mg/dL (9-16); Calcium 9.8 mg/dL (8.4-10.2); Carbon Dioxide 20 mmol/L (22-29); Chloride 114 mmol/L (96-108); Estimated Glomerular Filt Rate 42; Glucose Random 80 mg/dL (60-115); Potassium 3.8 mmol/L (3.3-5.1); Sodium 141 mmol/L (135-145)
[2024-12-24 11:57] LABS: B Type Natriuretic Peptide 64 pg/mL (<100)
[2024-12-24 11:58] LABS: Troponin-I High Sensitivity < 2.7 ng/L (<3.5-17.0)
== END 2024-12-24 10:09 | disposition home or self-care (01) ==
LOC: HO.LAB 10:08
PROVIDERS: PCP Internal Medicine Medical Oncology; Visit Provider Internal Medicine Cardiovascular Disease
DX: I1A.0 Resistant hypertension (principal); R94.31 Abnormal electrocardiogram [ECG] [EKG]
CPT/HCPCS: 36415; 80048; 83880; 84484; 85027; 93005; 99212

== ENCOUNTER → 2025-01-05 11:04 | Outpatient (BNV) | payer MEDICARE, MEDICAID, SELFPAY | PROVIDERS: PCP Internal Medicine Medical Oncology; Visit Provider Internal Medicine Cardiovascular Disease | DX: I27.20 Pulmonary hypertension, unspecified (principal); I35.8 Other nonrheumatic aortic valve disorders; I77.810 Thoracic aortic ectasia | CPT/HCPCS: 93306 ==

== ENCOUNTER → 2025-01-05 11:04 | Outpatient (REF) | payer MEDICARE, MEDICAID, SELFPAY ==
--- NOTE | 2025-01-05 11:04 | CA_ITS ---
Transthoracic Echocardiogram Patient (Last, First, Middle): Lynnette Mcgill T Gender: Female Date of : 1960 Age: 64 Procedure Date: 01/05/2025 Procedure Type: Transthoracic Echocardiogram Location: OP Height: 165.1 cm Weight: 120.2 kg BSA: 2.23 m2 Heart Rate: 84 bpm BP: 130 / 64 mmHg Light Rail Operator: YURI Referring MD: Alcon Villalobos MD Agricultural Research Technician: Alcon Villalobos MD Symptoms: I1A.0 - Resistant hypertension Study Quality: Adequate ECG Rhythm: Sinus Conclusions: - Normal left ventricular size, thickness, systolic function, and wall motion. The visually estimated ejection fraction is between 55-60%. Diastolic function is normal for age. - Normal right ventricular cavity size and systolic function. - There is mild calcification of the aortic valve. - Moderately elevated right atrial pressure. Mild pulmonary hypertension is present. - There is mild dilatation of the ascending aorta measuring 4.10 cm. Findings Left Ventricle Normal left ventricular size, thickness, systolic function, and wall motion. The visually estimated ejection fraction is between 55-60%. Diastolic function is normal for age. Right Ventricle Normal right ventricular cavity size and systolic function. Atria The left atrium is normal in size. The right atrium is normal in size. Aortic Valve There is a normal trileaflet aortic valve. There is mild calcification of the aortic valve. There is no aortic valve stenosis. There is no aortic valve regurgitation. Mitral Valve The mitral valve appears normal. There is no mitral valve regurgitation. There is no mitral valve stenosis. Pulmonic Valve The pulmonic valve is likely normal. Tricuspid Valve Normal tricuspid valve structure. There is no tricuspid valve regurgitation. The right ventricular systolic pressure is 37 mmHg. Moderately elevated right atrial pressure. Mild pulmonary hypertension is present. Great Vessels There is mild dilatation of the ascending aorta measuring 4.10 cm. The visualized portions of the pulmonary artery and branches are normal. Venous The inferior vena cava is dilated and collapses less than 50% with inspiration. Pericardium/Pleural There is no evidence of pericardial effusion. Prior Study Comparison Changes noted compared to prior study dated: 10/27/2020. Moderately elevated RA pressure, mild pulm hypertension. Measurements 2D Linear Measurements IVSd: 1.00 0.6-0.9/0.6-1.0 cm LVIDd: 4.95 3.9-5.3/4.2-5.9 cm LVIDd Index: 2.22 2.4-3.2/2.2-3.1 cm/m2 LVIDs: 3.22 2.0-3.6 cm LVPWd: 0.84 0.7-1.1 cm LA Diam: 4.00 2.7-3.8/3.0-4.0 cm LAIDs Index: 1.79 1.5-2.3 cm/m2 LV Mass: 198.71 67-162/88-224 g LV Mass Index: 89.11 43-95/49-115 g/m2 LVOT Diam: 2.30 3.0+(-)1.3 cm 2D Systolic Function EF 4C: 52.00 >55% EF 2C: 71.80 >55% EF BiP: 63.30 >55% Mitral Valve MV Pk E: 0.89 MV PK A: 0.68 MV Decel Time: 174.00 E/A: 1.30 E'Lateral: 10.90 E'Medial: 7.51 E/E' Med: 11.90 E/E' Lat: 8.20 PHT: 51.00 MVA PHT: 4.31 Decel Whiteside: 5.14 Aortic Valve AoV Pk Jonas: 1.42 AoV Pk Grad: 8.00 ROBIN: 3.36 LVOT LVOT Pk Jonas: 1.10 LVOT Mn Jonas: 0.72 LVOT VTI: 0.23 LVOT Pk Grad: 5.00 LVOT Mn Grad: 3.00 LVOT Diam: 2.30 LVOT Area: 4.15 Diastolic Function MV Pk E: 0.89 MV Pk A: 0.68 E/A: 1.30 E'Medial: 7.51 E/E' Med: 11.90 E' Laterial: 10.90 E/E' Lat: 8.20 Right Ventricle TAPSE (mm): 23.50 TVS' Jonas: 9.79 Tricuspid Valve TR Pk Jonas: 2.35 TR Pk Grad: 22.00 RA Press: 15.00 RVSP: 37.00 Great Vessels Aorta Sinus of Valsalva: 2.70 2.0-3.5 cm Ao Asc: 4.10 2.1-3.4 cm Pulmonary Veins Pulm Vein S/D 1.80 Pulmonary Valve PV Pk Jonas: 0.76 Peak PV Grad: 2.00 Updated in Other Vendor System with Status of Final Alcon Villalobos MD electronically signed on 01/05/2025 8:54:58 PM with status of Final
--- OUTSIDE RECORDS SUMMARY | 2025-01-05 13:14 | XMS_ITS ---
Author Organization Yovanny Noel III, MD Address [address] [place] [address] Care Team Providers Care Counselor Marriage And Family Name Role Phone Yovanny Noel Primary Care Provider Allergies Allergen (clinical drug ingredient) Drug/Non Drug Allergy documented on EMR Reaction Allergy Type Onset Date Status No Known Drug Allergy Unknown Drug Allergy Active Reason For Referral Reason Evaluate and Treat Constipation not responding to anything Bowel movements once a week Diagnosis 1 Constipation (K59.00 ) Referral Organization Yovanny Noel III, MD Referring Provider First Name Yovanny Referring Provider Last Name Sadie Referring Provider Speciality Internal M edicine Referred Provider LETICIA MARIO Referred Provider Specialty Gastroentero logy General Notes Marixa Zimmerman 01/05/2025 10:25:50 AM > Referral and progress note Faxed Referral Priority Routine REASON FOR VISIT drainage in the pharynx, Chronic cough and, Asthma, Goiter, Depression, Lumbar radiculopathy, Morbid obesity Medications Medication SIG (Take, Route, Frequency, Duration) Notes Start Date End Date Status Lisinopril 20MG TAKE ONE TABLET BY MOUTH EVERY DAY Active Clopidogrel Bisulfate 75 MG TAKE 1 TABLE T BY MOUTH ONCE DAILY Orally Once a day Active dexAMETHasone 2 MG 1 tablet Orally ever y 12 hrs 10/21/2024 Active Guaiatussin AC 100-10 MG/5ML 10 mL as needed Orally every 6 hrs As needed 07/22/2024 Active guaiFENesin-Codeine 100-10 MG/5ML 10 mL as needed Orally every 6 hrs 07/22/2024 Active Lisinopril 40 MG 1 tablet Orally Once a day 11/12/2023 Active Polyethylene Glycol 3350 17 GM 1 packet mixed with 8 ounces of fluid Orally Once a day Active Benzonatate 200 MG 1 capsule as needed Orally Three times a day 06/24/2024 Active Meloxicam 15 MG Take 1 tablet by paras th once daily Active Loratadine 10 MG 1 tablet Orally Once a day 07/22/2024 Active K-Tab 10 MEQ 1 tablet with food Orally Once a day 02/15/2021 Active Cyclobenzaprine HCl 10 MG as directed Or ally three times a day 08/15/2022 Active Pregabalin 50 MG 1 capsule Orally Twi ce a day Active Gabapentin 300 MG 1 capsule Orally thr ee times a day 01/23/2023 Active Simvastatin 40 MG Take 1 tablet by paras th in the evening Orally Once a day Active Ibuprofen 800 MG 1 tablet Orally Thre e times a day 07/28/2016 Active Montelukast Sodium 10 MG 1 tablet in the evening Orally Once a day Active amLODIPine Besylate 10 MG 1 tablet Orall y Once a day Active Furosemide 40 MG 1 tablet Orally Once a day 02/15/2021 Active Combivent 18-103 MCG/ACT 2 puffs Inhalat ion Six times a day Active Esomeprazole Magnesium 40 MG Take 1 caps ule by mouth once daily Active Flonase 50 MCG/ACT 1 spray in each nostril Nasally Once a day 09/28/2023 Active Senna Laxative 8.6 MG 1 tablet Orally tw ice a day for 30 days 12/29/2024 06/27/2025 Active Escitalopram Oxalate 20 MG 1 tablet Oral ly Once a day 12/29/2021 Active Advair Diskus 500-50 MCG/DOSE 1 puff Inhalation every 12 hrs Active hydrALAZINE HCl 50 MG 1 tablet with food Orally Four times a day Active Metoprolol Tartrate 100 MG Take 1 tablet by mouth twice daily with food Active Pantoprazole Sodium 20 MG 1 tablet 1/2 t o 1 hour before morning meal Orally Once a day 10/27/2024 Active Social History Tobacco Use: Social History Observation Description Date Details (start date - stop date) Former Smoker NA - NA Sex Assigned At : Social History Observation Description Sex Assigned At Female Tobacco Control (Standard) Question Answer Notes Tobacco use: Former smoker How long has it been since you last smoked? Sherry ter than 10 years Additional Findings: Tobacco non-user Ex-cigaret te smoker Vital Signs Temperature 97.3 degrees Fahrenheit 12/30/19 25 Blood pressure systolic 143 mm Hg 12/30/19 25 Blood pressure diastolic 79 mm Hg 025 Heart Rate 66 /min 12/29/2024 Height 63 in 12/29/2024 Weight 266 lbs 12/29/2024 BMI 47.11 kg/m2 12/29/2024 Encounters Encounter Location Date Provider Diagnosis Yovanny Noel III, MD [address] [place] [address] [place] [address] 12/29/2024 Yovanny Noel Asthma J45.909 ; Mor bid obesity E66.01 ; Other and unspecified hyperlipidemia E78.5 ; Nontoxic uninodular goiter E04.1 ; Former smoker Z87.891 ; CVA (cerebral vascular accident) I63.9 ; Sleep apnea in adult G47.30 ; Vitamin D deficiency E55.9 ; Stage 3b chronic kidney disease N18.32 and Constipation K59.00 Assessments Encounter Date Diagnosis (ICD Code) Assessment Notes Treatment Notes Treatment Clinical Notes 12/29/2024 Asthma (ICD-10 - J45.909) She has bbeen treated of asthma lately. There was no wheezing today. She was breathing room air comfortably. Current therapy was continued. 12/29/2024 Morbid obesity (ICD-10 - E66.01) She continues to participate in the weight-loss program. She has lost 12 pounds since October 31, 2024. She will continue on her current therapies without change. She will be seen frequently to weigh her and form of support. 12/29/2024 Other and unspecified hyperlipidemia (ICD-10 - E78.5) Comprehensive blood work with a fasting lipid profile is being done periodically.The most recent total cholesterol was within normal limits. 12/29/2024 Nontoxic uninodular goiter (ICD-10 - E04.1) Her thyroid is not palpable today. She appears to be euthyroid. This problem will be followed closely. 12/29/2024 Former smoker (ICD-10 - Z87.891) She is highly motivated to not smoke. We have discussed a strategy for maintenance of abstinence in times of stress and illness. 12/29/2024 CVA (cerebral vascular accident) (ICD-10 - I63.9) She continues to have mild residual numbness in left side of her face but no muscle weakness is noted. She is able to conduct all of the activities of daily living. Her blood pressure is stable and her weight is dropping steadily. She is consuming a healthy, low-sodium diet. 12/29/2024 Sleep apnea in adult (ICD-10 - G47.30) She continues to use her CPAP. 12/29/2024 Vitamin D deficiency (ICD-10 - E55.9) She is continuing on vitamin D supplementation. 12/29/2024 Stage 3b chronic kidney disease (ICD-10 - N18.32) Her current GFR is 38. She is under the care of nephrology. Her hydrochlorothiazide was stopped. Her blood pressure was reasonable today. 12/29/2024 Constipation (ICD-10 - K59.00) I gave her instructions to consume one Bolla brands fairly with every breakfast. She will take Senokot twice a day. A followup was arranged. Plan Of Treatment Medication Medication Name Sig Start Date Stop Date Notes Lisinopril 20MG TAKE ONE TABLET BY M OUTH EVERY DAY Clopidogrel Bisulfate 75 MG TAKE 1 TABLE T BY MOUTH ONCE DAILY Orally Once a day dexAMETHasone 2 MG 1 tablet Orally ever y 12 hrs 10/21/2024 Guaiatussin AC 100-10 MG/5ML 10 mL as ne eded Orally every 6 hrs 07/22/2024 guaiFENesin-Codeine 100-10 MG/5ML 10 mL as needed Orally every 6 hrs 07/22/2024 Lisinopril 40 MG 1 tablet Orally Once a day 11/12/2023 Polyethylene Glycol 3350 17 GM 1 packet mixed with 8 ounces of fluid Orally Once a day Benzonatate 200 MG 1 capsule as needed Orally Three times a day 06/24/2024 Meloxicam 15 MG Take 1 tablet by paras th once daily Loratadine 10 MG 1 tablet Orally Once a day 07/22/2024 K-Tab 10 MEQ 1 tablet with food O rally Once a day 02/15/2021 Cyclobenzaprine HCl 10 MG as directed Or ally three times a day 08/15/2022 Pregabalin 50 MG 1 capsule Orally Twi ce a day Gabapentin 300 MG 1 capsule Orally thr ee times a day 01/23/2023 Simvastatin 40 MG Take 1 tablet by paras th in the evening Orally Once a day Ibuprofen 800 MG 1 tablet Orally Thre e times a day 07/28/2016 Montelukast Sodium 10 MG 1 tablet in the evening Orally Once a day amLODIPine Besylate 10 MG 1 tablet Orally Once a day Furosemide 40 MG 1 tablet Orally Once a day 02/15/2021 Combivent 18-103 MCG/ACT 2 puffs Inhalat ion Six times a day Esomeprazole Magnesium 40 MG Take 1 caps ule by mouth once daily Flonase 50 MCG/ACT 1 spray in each nost ril Nasally Once a day 09/28/2023 Senna Laxative 8.6 MG 1 tablet Orally tw ice a day for 30 days 12/29/2024 06/27/2025 Escitalopram Oxalate 20 MG 1 tablet Orally Once a day 12/01 Advair Diskus 500-50 MCG/DOSE 1 puff Inh alation every 12 hrs hydrALAZINE HCl 50 MG 1 tablet with food Orally Four times a day Metoprolol Tartrate 100 MG Take 1 tablet by mouth twice daily with food Pantoprazole Sodium 20 MG 1 tablet 1/2 t o 1 hour before morning meal Orally Once a day 10/27/2024 Referrals Referral Date Details 12/29/2024 12/29/2024, Evaluate and Treat Constipation not responding to anything Bowel movements once a week, LETICIA MARIO Next Appt Details Follow Up: 3 Weeks, Reason: Telehealth Provider Name:Yovanny Noel, 01/14/2025 09:45:00 AM, [address] [place] [address], [place] [address], [place], [id number], Provider Name:Yovanny Noel, 10/05/2025 10:30:00 AM, [address] [place] [address] [address], [place], [address], Progress Notes * Lynnette MCGILL TDOB: [birth year] (64 yo F)Acc No.[id number]:12/29/2024 Progress Notes Patient:Lynnette BARRIGA Provider:?Yovanny Noel MD :1960???Age:64 Y???Sex:Female D ate:12/29/2024 Address:[address] [place], [place] [id number] Subjective: * Chief Complaints: * ???Drainage in the pharynxCh ronic cough andAsthmaGoiterDepressionLumbar radiculopathyMorbid obesity * HPI: ???COVID-19 Screening:? She comes to the office today with several complaints that M her miserable.? She says her stomach hurts all of the time, despite taking her antacid medication.? She has been constipated lately and says that none of the things she has taken which include milk of magnesia and MiraLax hasn't helped.? She says she has bilateral drainage in the back of her throat to make sure cough and keeps her awake at night.? She points to her neck under her years when she complains of this.? The story is 1 postnasal drip stimulating the cough reflex.? She has an appointment with ENT, she says, next week.? I recommended she give this story to the HEENT at length and see what they say and then call me and we will discuss what to do.? She was continued on her current medications.? Her asthma is in remission and she has no complaints about her breathing. ?Questions?Have you had any new onset fever, chills, cough, congestion, sore throat, shortness of breath, muscle aches??No * ROS:?General/Constitutional:?pain?only normal aches and pains.?Chills?denies.?Fatigue?admits.?Fever?denies.?ENT:?Decreased hearing?denies.?Respiratory:?Cough?non-productive.?Cardiovascular:?Chest pain with exertion?denies.?Dyspnea on exertion?denies.?Shortness of breath?denies.?Gastrointestinal:?Constipation?associated with perianal discomfort.?Decreased appetite?denies.?Diarrhea?denies.?Heartburn?denies.?Nausea?denies.?Rectal bleeding?denies.?Vomiting?denies.?Hematology:?bruising?denies.?petechiae?denies.?Swollen glands?none have been noted.?Genitourinary:?Frequent urination?at night.?Musculoskeletal:?Muscle aches?denies.?Painful joints?denies.?Sciatica?denies.?Weakness?denies.?Skin:?Itching?denies.?Rash?denies.?Skin lesion(s)?denies.?Neurologic:?Difficulty speaking?denies.?Dizziness?denies.?Headache?denies.?Low back pain?that is chronic.?Psychiatric:?Depressed mood?which is moderate.? * Medical History:? * Surgical History:?hysterecto my for bleeding Cardiac Catheterization 1Sleeve Gastrectomy [facility] 09/14/21No history * Hospitalization/Major Diagno stic Procedure:?re: Hypertension 07/2018CVA 07/2020No history * Family History:?Father: dece ased 70 yrs, kidney failure, hypertension, alcoholism, diagnosed with HTN.?Mother: alive 68 yrs, breast cancer, depression, hypertension, diagnosed with HTN, Cancer.?1 brother(s) , 3 sister(s) - healthy. 2 [...] ???She is single and working at a local [employer]. She has four children, 2 of each, Emir, Fuentes, Benson, Marie. She was born in [place]. * Medications:?TakingPantopraz ole Sodium 20 MG Tablet Delayed Release 1 tablet 1/2 to 1 hour before morning meal Orally Once a day Esomeprazole Magnesium 40 MG Capsule Delayed Release [...] in the evening Orally Once a day Lisinopril 40 MG Tablet 1 tablet Orally [...] Tablet 1 tablet Orally every 12 hrs Metoprolol Tartrate 100 MG Tablet Take 1 tablet by mouth twice daily with food hydrALAZINE HCl 50 MG Tablet 1 tablet with food Orally Four times a day Medication List reviewed and reconciled with the patientTaking Pantoprazole Sodium 20 MG Tablet Delayed Release 1 tablet 1/2 to 1 hour before morning meal Orally Once a day Taking Esomeprazole Magnesium 40 MG Capsule Delayed Release [...] the evening Orally Once a day Taking Lisinopril 40 MG Tablet 1 tablet Orally [...] 1 tablet Orally every 12 hrs Taking Metoprolol Tartrate 100 MG Tablet Take 1 tablet by mouth twice daily with food Taking hydrALAZINE HCl 50 MG Tablet 1 tablet with food Orally Four times a day Medication List reviewed and reconciled with the patient * Allergies:?No Known Drug All ergyno[Allergies Verified] Objective: * Vitals:?Ht: 63, Wt: 266, BMI :47.11, BP: 143/79, HR: 66, Temp: 97.3, Ht-cm: 160.02, Wt-k.66. * ???Past Orders: Lab:URINE DIP STICK * Collection Date 10/02/2024 02/04/2024 09/28/2023 Order Date 10/02/2024 02/04/2024 09/28/2023 SG 1.010 (Ref Range: 1.005 - 1.025) 1.020 (Ref Range: 1.005 - 1.025) 1.015 (Ref Range: 1.005 - 1.025) pH 6.0 (Ref Range: 5.0 - 9.0) 5.0 (Ref Range: 5.0 - 9.0) 6.0 (Ref Range: 5.0 - 9.0) ILIA 70 (Ref Range: Negative -) 70 (Ref Range: Negative -) Negative (Ref Range: Negative -) NIT Negative (Ref Range: Negative -) Negative (Ref Range: Negative -) Negative (Ref Range: Negative -) PRO 15 (Ref Range: Negative - Trace) 15 (Ref Range: Negative - Trace) 19 (Ref Range: Negative - Trace) GLU Negative (Ref Range: Negative -) Negative (Ref Range: Negative -) Negative (Ref Range: Negative -) KET Negative (Ref Range: Negative -) 5 (Ref Range: Negative -) Negative (Ref Range: Negative -) UBG 0.2 (Ref Range: 0.1 - 1.8) 0.2 (Ref Range: 0.1 - 1.8) 0.2 (Ref Range: 0.1 - 1.8) ERNESTINA Negative (Ref Range: 0.2 - 1.3) Negative (Ref Range: 0.2 - 1.3) Negative (Ref Range: 0.2 - 1.3) BLD Negative (Ref Range: Negative -) Negative (Ref Range: Negative -) Negative (Ref Range: Negative -) Menstrating No NR No ???Lab:Troponin-I High Sensitivity (Order Date - 12/24/2024) (Collection Date & Time - 12/24/2024 11:13 AM)?ValueReference Range?Troponin-I High Sensitivity< 2.7<3.5-17.0 - ng/L * Lab:Basic Metabolic Panel * Collection Date 12/24/2024 04/21/2024 Collection Time 11:13 AM 09:56 AM Order Date 12/24/2024 04/21/2024 Sodium 141 (Ref Range: 135-145 mmol/L) 143 (Ref Range: 135-145 mmol/L) Blood Urea Nitrogen 32?H (Ref Range: 9-16 mg/dL) 27?H (Ref Range: 9-16 mg/dL) Creatinine 1.28 (Ref Range: 0.5-1.4 mg/dL) 1.40 (Ref Range: 0.5-1.4 mg/dL) Glucose Random 80 (Ref Range: 60-115 mg/dL) 85 (Ref Range: 60-115 mg/dL) Calcium 9.8 (Ref Range: 8.4-10.2 mg/dL) 10.0 (Ref Range: 8.4-10.2 mg/dL) Potassium 3.8 (Ref Range: 3.3-5.1 mmol/L) 4.0 (Ref Range: 3.3-5.1 mmol/L) Chloride 114?H (Ref Range: 96-108 mmol/L) 115?H (Ref Range: 96-108 mmol/L) Carbon Dioxide 20?L (Ref Range: 22-29 mmol/L) 20?L (Ref Range: 22-29 mmol/L) Anion Gap 11?L (Ref Range: 12-20) 12 (Ref Range: 12-20) Estimated Glomerular Filt Rate 42 38 * Lab:Complete Blood Count no Diff * Collection Date 12/24/2024 04/21/2024 Collection Time 11:13 AM 09:56 AM Order Date 12/24/2024 04/21/2024 White Blood Count 5.0 (Ref Range: 4.8-10.8 X10*3/uL) 5.3 (Ref Range: 4.8-10.8 X10*3/uL) Red Blood Count 4.10?L (Ref Range: 4.20-5.50 X10*6/uL) 4.17?L (Ref Range: 4.20-5.50 X10*6/uL) Hemoglobin 11.0?L (Ref Range: 12.0-16.0 g/dl) 10.8?L (Ref Range: 12.0-16.0 g/dl) Hematocrit 34.2?L (Ref Range: 37.0-47.0 %) 34.3?L (Ref Range: 37.0-47.0 %) Mean Corpuscular Volume 83.4 (Ref Range: 80.0-98.0 fL) 82.3 (Ref Range: 80.0-98.0 fL) Mean Corpuscular Hemoglobin 26.8?L (Ref Range: 27.0-33.0 pg) 25.9?L (Ref Range: 27.0-33.0 pg) Mean Corpuscular HGB Conc 32.2 (Ref Range: 31.0-35.0 g/dl) 31.5 (Ref Range: 31.0-35.0 g/dl) Red Cell Distribution Width 12.6 (Ref Range: 11.0-16.0 %) 13.0 (Ref Range: 11.0-16.0 %) Platelet Count 214 (Ref Range: 160-400 X10*3/uL) 218 (Ref Range: 160-400 X10*3/uL) Mean Platelet Volume 10.8 (Ref Range: 9.4-12.3 fL) 10.3 (Ref Range: 9.4-12.3 fL) NRBC Pct Auto 0.0 (Ref Range: 0.0-0.2 /100WBC) 0.0 (Ref Range: 0.0-0.2 /100WBC) NRBC Abs Auto 0.000 (Ref Range: 0.0-0.012 X10*3/uL) 0.000 (Ref Range: 0.0-0.012 X10*3/uL) ???Lab:B Type Natriuretic Peptide (Order Date - 12/24/2024) (Collection Date & Time - 12/24/2024 11:13 AM)?ValueReference Range?B Type Natriuretic Zzyikqe38<100 - pg/mL * Examination: ???General Examination: ?GENERAL APPEARANCE:?pleasant, well nourished, well developed, in no acute distress, calm and relaxed, morbidly obese, woman.?HEAD:?atraumatic, normocephalic.?EYES:?eomi, perrla, anicteric, conjugate.?EARS:?normal.?NOSE:?septum intact, Without erythema or bleeding or congestion.?ORAL CAVITY:?normal, unremarkable, Visible oropharynx without lesions, uvula midline, tongue unremarkable.?NECK/THYROID:?no jugular venous distention, no carotid bruit, thyroid normal.?LYMPH NODES:?no enlarged lymph nodes,spleen normal.?SKIN:?no suspicious lesions, anicteric.?HEART:?no clicks, gallops, murmurs, or rubs, regular rhythm, S1, S2 normal, no s3, or vascular bruits.?LUNGS:?clear to auscultation, no wheezes, rales, rhonchi, good air movement.?BREASTS:??no masses palpable bilaterally.?ABDOMEN:?bowel sounds normal, no ascites, no organomegaly, no mass, morbid obesity.?RECTAL EXAM:?not examined.?MUSCULOSKELETAL:?extremities unremarkable, no clubbing, cyanosis or edema.?PERIPHERAL PULSES:?normal.?NEUROLOGIC:?alert and oriented, cranial nerves 2-12 grossly intact, deep tendon reflexes 2+ symmetrical, motor strength normal upper and lower extremities, sensory exam intact.?PSYCH:?alert, oriented, mood depressed, anxious appearing.? Assessment: * Assessment: 1.?Morbid obesity - E66.01 ( Primary)???Notes :She continues to participate in the weight-loss program.? She has lost 12 pounds since October 31, 2024.? She will continue on her current therapies without change.? She will be seen frequently to weigh her and form of support.???2.?Asthma - J45.909???Notes :She has bbeen treated of asthma lately.? There was no wheezing today.? She was breathing room air comfortably.? Current therapy was continued.???3.?Other and unspecified hyperlipidemia - E78.5???Notes :Comprehensive blood work with a fasting lipid profile is being done periodically.The most recent total cholesterol was within normal limits.???4.?Nontoxic uninodular goiter - E04.1???Notes :Her thyroid is not palpable today. She appears to be euthyroid. This problem will be followed closely.???5.?Former smoker - Z87.891???Notes :She is highly motivated to not smoke. We have discussed a strategy for maintenance of abstinence in times of stress and illness.???6.?CVA (cerebral vascular accident) - I63.9???Notes :She continues to have mild residual numbness in left side of her face but no muscle weakness is noted. She is able to conduct all of the activities of daily living. Her blood pressure is stable and her weight is dropping steadily. She is consuming a healthy, low- sodium diet.???7.?Sleep apnea in adult - G47.30???Notes :She continues to use her CPAP.???8.?Vitamin D deficiency - E55.9???Notes :She is continuing on vitamin D supplementation.???9.?Stage 3b chronic kidney disease - N18.32???Notes :Her current GFR is 38. She is under the care of nephrology. Her hydrochlorothiazide was stopped. Her blood pressure was reasonable today.???10.?Constipation - K59.00???Notes :I gave her instructions to consume one Bolla brands fairly with every breakfast.? She will take Senokot twice a day.? A followup was arranged.??? Plan: * Treatment: 2.?Constipation? Referral To:LETICIA MARIO??Gastroenterology ?Reason:Evaluate and Treat Constipation not responding to anything Bowel movements once a week 3.?Others? Continue Pantoprazole Sodium Tablet Delayed Release, 20 [...] dangers of tobacco use and urged to quit.?12/29/2024 * Follow Up:?3 Weeks (Reason: Telehealth) * Images: * Sign off status: Completed true * Provider:?Yovanny Noel MD Date:?12/01 Generated for Noreen fonseca/Joel/eTjosesmitting on:?01/05/2025 01:14 PM EDT History and Physical Notes * HPI (History of Present Illness) Category Sub-Category Detail Notes COVID-19 Screening Questions Have you had any new onset fever, chills, cough, congestion, sore throat, shortness of breath, muscle aches?: No Examination Category Sub-Category Detail Notes General Examination GENERAL APPEARANCE: pleasant , well nourished, well developed, in no acute distress, calm and relaxed, morbidly obese, woman HEAD: atraumatic, normocep halic EYES: eomi, perrla, anicte noa, conjugate EARS: normal NOSE: septum intact, Witho ut erythema or bleeding or congestion NECK/THYROID: no jugular venous di stention, no carotid bruit, thyroid normal HEART: no clicks, gallops, murmurs, or rubs, regular rhythm, S1, S2 normal, no s3, or vascular bruits LUNGS: clear to auscultatio n, no wheezes, rales, rhonchi, good air movement ABDOMEN: bowel sounds normal, no ascites, no organomegaly, no mass, morbid obesity NEUROLOGIC: alert and oriented, cranial nerves 2-12 grossly intact, deep tendon reflexes 2+ symmetrical, motor strength normal upper and lower extremities, sensory exam intact SKIN: no suspicious lesion s, anicteric PERIPHERAL PULSES: normal BREASTS: no masses palpable b ilaterally MUSCULOSKELETAL: extremities unremark able, no clubbing, cyanosis or edema LYMPH NODES: no enlarged lymph no andre,spleen normal RECTAL EXAM: not examined PSYCH: alert, oriented, moo d depressed, anxious appearing ORAL CAVITY: normal, unremarkable , Visible oropharynx without lesions, uvula midline, tongue unremarkable Consultation Request Notes Referral Date Referring Provider Referred Provider Not tamie 12/29/2024 Yovanny Noel PETER Evaluate a nd Treat Constipation not responding to anything Bowel movements once a week
--- OUTSIDE RECORDS SUMMARY | 2025-01-05 13:14 | XMS_ITS | Clinical Summary ---
Author Organization [facility] Address [address] [place] [address] Phone Care Team Providers Care Mining Captain Name Role Phone Ghazala Noel MD Primary Care Provider [phone] Allergies Active Allergy Reactions Criticality Noted Date Comments Tomato [facility]2018 [facility] Medications CHOLECALCIFEROL , VITAMIN D3, ORAL [...] DEMI (obstructive sleep apnea) 02/07/2018 Overview (08/26/2024): [facility] Home Sleep Apnea Test: Date 04/30/2019; [...] PM EDT Office Visit Bariatric Surgery - [address] [address] Julian Hubbard MD Class 3 severe obesity due to excess calories with serious comorbidity and body mass index (BMI) of 40.0 to 44.9 in adult ([facility]) (Primary Dx) 10/13/2024 2:48 PM EST - 10/13/2024 11:59 PM EST Hospital Encounter [facility] CT Scan [address] [place] [address] History of smoking Discharge Disposition: Home or Self Care 10/07/2024 5:37 PM EST - 10/07/2024 11:59 PM EST Hospital Encounter [facility] MRI [address] [place] [id number] Lumbar radiculopathy Discharge Disposition: Home or Self Care from Last 3 Months Surgical History Surgery Date Site/Laterality Comments HYSTERECTOMY PROCEDURE: HISTORICAL HYSTERECTOMY KNEE SURGERY Left PROCEDURE: HISTORICAL KNEE SURGERY Medical History Medical History Date Comments Morbid obesity with BMI of 5 0.0-59.9, adult ([facility]) 12/04/2017 DX:Morbid obesity with BMI o f 50.0-59.9, adult ([facility]) Hyperlipidemia 12/04/2017 DX:Hyperlipidemi a Nontoxic uninodular goiter 12/04/2017 DX:No ntoxic uninodular goiter Hypertension 12/04/2017 DX:Hypertension Asthma 12/04/2017 DX:Asthma Lumbar radiculopathy 12/04/2017 DX:Lumbar r adiculopathy Eating disorder, unspecified 08/09/2021 DX: Eating disorder, unspecified; COMMENT: Tiffanie Benitez PhD Left ventricular hypertrophy 05/21/2019 DX: Left ventricular hypertrophy DEMI (obstructive sleep apnea) 02/07/2018 DX :DEMI (obstructive sleep apnea); COMMENT: [facility] Home Sleep Apnea Test: Date 04/30/2019; Wt 303#; BMI 50; ARQUEL 12, AI 2; HI 11; Unclassified apneas [...] AM EDT Office Visit Bariatric Surgery - [place] [address] [place] [address] Julian Hubbard MD [address] [place] [address] Health Maintenance Due Date Last Done Comments DTaP,Tdap,and Td Vaccines (1 - Tdap) 1980 Pneumococcal Vaccine: 50+ Years (1 of 2 - PCV) 1980 Pneumococcal Vaccine: Pediatrics (0 to 5 Years) and At-Risk Patients (6 to 64 Years) (1 of 2 - PCV) 1980 Cervical Cancer Screening: Pap Smear 1982 Zoster Vaccines (1 of 2) 2011 RSV Immunization Adult Patients (1 - Risk 60-74 years 1-dose series) 2021 Colorectal Cancer Screening: Colonoscopy 08/29/2022 HIV Screening 08/29/2022 Hepatitis C Screening 08/29/2022 Medicare Annual Wellness Visit 08/29/2022 Social Influencers of Health Screening 08/29/2022 Hypertension/CHF/CAD Annual BMP Blood Test 01/31/2024 01/30/2023 COVID-19 Vaccine ( season) 2024 Influenza Vaccine (Season Ended) 2025 Depression Screening 07/08/2025 07/08/2024 Cholesterol Screening (Lipid [...] EST Lumbar radiculopathy DEPRESSION SCREENING Routine 07/08/2024 MASOUD SCREENING DIGITAL Routine 05/08/2024 1:31 PM EDT [...] Signed Date: 10/21/2024 11:11 ET Workstation ID: [id number] Transcribed By: Self Edit Transcribed Date: 10/21/2024 11:01 ET Narrative 10/21/2024 11:11 AM EST History: ??63 year-old 36 pack-year former smoker, asymptomatic, for lung cancer screening. Quit smoking 15 years ago. Mother had breast carcinoma. Comparison: 10/12/23 Technique: Helical volumetric imaging of the thorax was performed, using low- dose technique, without IV contrast. DLP: 168.57 mGy/cm ??CTDIvol: 4.83 mGy Go!Foton VCT Iterative reconstruction technique Findings: Lungs and [...] contrast. DLP: 168.57 mGy/cm CTDIvol: 4.83 mGy Go!Foton VCT Iterative reconstruction technique Findings: Lungs and [...] Signed Date: 10/21/2024 11:11 ET Workstation ID: [id number] Transcribed By: Self Edit Transcribed Date: 10/21/2024 [...] Signed Date: 10/11/2024 12:37 ET Workstation ID: [id number] Transcribed By: Self Edit Transcribed Date: 10/11/2024 [...] Signed Date: 10/11/2024 12:37 ET Workstation ID: [id number] Transcribed By: Self Edit Transcribed Date: 10/11/2024 12:29 ET us Ghazala Noel MD IMG MRI PROCEDURES Final Resul t * Depression Screening (07/08/2024) Depression Screening Abstracted us Historical Provider [facility] Final Result * MASOUD SCREENING DIGITAL (05/08/2024 1:31 PM EDT) Anatomical Region Laterality Modality Mammography 05/08/2024 10:5 9 AM EDT Narrative 05/08/2024 1:31 PM EDT [facility] Diagnostic Imaging Department [address] [place] [address] Patient: ??PAMELAFACUNDORICH T ?/Age/Sex: 1960 - Unit#: ??[id number] ? Location/Status: ??SPDIMAM/REG CLI ? Mnemonic/Ordering Site: ??DIGSC/SPMAM Ordering Physician: ??GHAZALA NOEL MD Masoud Screening Digital - 05/08/24 - 1125 Report Status:Signed EXAM: [facility] Screening Digital EXAM DATE AND TIME: 05/08/2024 11:26 AM HISTORY: ??Screening. Right breast biopsy in 2009, pathology benign. COMPARISON: ??06/26/22, 06/22/21, 06/18/20 TECHNIQUE: Bilateral digital breast tomosynthesis was performed in the CC and MLO projections. Computer aided detection with Syllabuster 3D 3.1 was employed. TISSUE DENSITY: a. [...] Procedure Note Crystal Carmen MD - 07/16/2024 [facility] Diagnostic Imaging Department [address] [place] [address] Patient: RICH MCGILL /Age/Sex: 1960 - 63 - F Unit#: [id number] Location/Status: SPDIMAM/REG CLI Mnemonic/Ordering Site: [facility] Ordering Physician: GHAZALA NOEL MD [facility] Screening Digital - 05/08/24 - 1125 Report Status:Signed EXAM: [facility] Screening Digital EXAM DATE AND TIME: 05/08/2024 11:26 AM HISTORY: Screening. Right breast biopsy in 2009, pathology benign. COMPARISON: 06/26/22, 06/22/21, 06/18/20 TECHNIQUE: Bilateral digital breast tomosynthesis was performed in the CCand MLO projections. Computer aided detection with Syllabuster 3D 3.1was employed. TISSUE DENSITY: a. The [...] date/Time: 05/08/24 1331 us Ghazala Noel MD IM BI PROCEDURES Final Result * Annual BMP [...] Insurance MEDICAID - [place] MEDICARE Care Teams Mining Captain Relationship Specialty Start Date End Date Ghazala Noel MD [address] [address] PCP - General Oncology 07/25/24
--- OUTSIDE RECORDS SUMMARY | 2025-01-05 13:14 | XMS_ITS ---
Author Organization Yovanny Noel III, MD Address [address] [place] [address] Care Team Providers Care Deli Slicer Name Role Phone Yovanny Noel Primary Care Provider REASON FOR VISIT Follow up Social History Sex Assigned At : Social History Observation Description Sex Assigned At Female Encounters Encounter Location Date Provider Diagnosis Yovanny Noel III, MD [address] [place] [address] [place] [address] 12/26/2024 Yovanny Noel Plan Of Treatment Next Appt Details Provider Name:Yovanny Noel, 01/14/2025 09:45:00 AM, [address] [place] [address] [place], [address], Provider Name:Yovanny Noel, 10/05/2025 10:30:00 AM, [address] [place] [address] [place], [address], Progress Notes * Lynnette MCGILL TDOB: [birth year] (64 yo F)Acc No.[id number]:12/26/2024 Progress Notes Patient:Lynnette BARRIGA Provider:?Yovanny Noel MD :1960???Age:64 Y???Sex:Female D ate:12/26/2024 Address:[address] [place], [place] [id number] Subjective: * Chief Complaints: * ???1. Follow up. * Medical History:? Objective: * Vitals:? Assessment: Plan: * Treatment: * Images: * The named appointment provid er may or may not be the originator of this progress note, and it is not deemed complete until electronically signed by the appointment provider. Sign off status: Pending * Provider:?Yovanny Noel MD Date:?11/30 Generated for Noreen fonseca/Joel/eTransmitting on:?01/05/2025 01:14 PM EDT
--- OUTSIDE RECORDS SUMMARY | 2025-01-05 13:14 | XMS_ITS ---
Author Organization Yovanny Noel III, MD Address [address] [place] [address] Care Team Providers Care Head Teller Name Role Phone Yovanny Noel Primary Care [...] Date Provider Diagnosis Yovanny Noel III, MD [address] [place] [address] [place] [address] 10/31/2024 Yovanny Noel Asthma J45.909 ; For [...] Next Appt Details Follow Up: End november, [place] son: To monitor the patient's asthma symptoms and overall health Provider Name:Yovanny Noel, 01/14/2025 09:45:00 AM, [address] [place] [address], [place] [address], [place], [address], Provider Name:Yovanny Noel 10/05/2025 10:30:00 AM, [address], [address], [place], [address], Progress Notes * Lynnette MCGILL TDOB: [birth year] (63 yo F)Acc No.[id number]:10/31/2024 Patient:?Lynnette MCGILL Provider:?Yovanny Noel MD :1960???Age:63 Y???Sex:Female D ate:10/31/2024 Address:[address] [place], [place] [phone] Subjective: * Chief Complaints: * ???BronchitisSore throatExac erbation of lumbar radiculopathySinus infection * HPI: ???:?Telehealth?Location of provider rendering services:?{...} [address] [facility] [address] ?Location of patient:?address listed in demographics for [...] ???She is single and working at a [employer]. She has four children, 2 of each, [...] to quit.?11/28/2024 * Follow Up:?End of November ([place] son: To monitor the patient's asthma symptoms and overall health) * Images: * Sign off status: Completed true * Provider:?Yovanny Noel MD Date:?10/03 Generated for Noreen fonseca/Joel/eTjosesmitting on:?01/05/2025 01:14 PM EDT History and Physical Notes * HPI (History of Present Illness) Category Sub-Category Detail Notes [facility] [address] [place] [address] Location of patient:: address listed in demographics [...]
--- OUTSIDE RECORDS SUMMARY | 2025-01-05 13:15 | XMS_ITS | Clinical Summary ---
Author Organization [facility] Address [address] [place] [address] Phone Care Team Providers Care Medical Records Clerk Name Role Phone Yovanny Noel MD Primary Care Provider [phone] Allergies Active Allergy Reactions Criticality Noted Date [...] DAILY. STOP POTASSIUM SUPPLEMENT. 1 Active Tiotropium Marion Monohydrate 1.25 MCG/ACT aerosol solution Inhale 1 [...] Obstructive sleep apnea syndrome 02/07/2018 Overview (03/26/2021): [facility] Home Sleep Apnea Test: Date 04/30/2019; Wt [...] Office Visit [facility] [address] [address] Chandler Anne MD [address] [address] Health Maintenance Due Date Last Done Comments Breast Cancer Screening 1960 Pneumococcal Vaccine: Pediat rics (0 to 5 Years) and At-Risk Patients (6 to 64 Years) (1 of 2 - PCV) 1967 Colorectal Cancer Screening: Annual FOBT 2010 Colorectal Cancer Screening: Colonoscopy 2010 Colorectal Cancer Screening: Sigmoidoscopy 2010 Influenza Vaccine (Season Ended) 2025 Hepatitis B Vaccine Aged Out No longe r eligible based on patient's age to complete this topic Insurance [place] Care Teams Medical Records Clerk Relationship Specialty Start Date End Date Yovanny Noel MD [address] [place] [address] , [address] [place] [address] PCP - General Medical Oncology 01/18/24
== END ==
LOC: HO.CARD 11:04
PROVIDERS: PCP Internal Medicine Medical Oncology; Visit Provider Internal Medicine Cardiovascular Disease
DX: I1A.0 Resistant hypertension (principal)
CPT/HCPCS: 93306

== ENCOUNTER 2025-01-16 13:57 | Outpatient (AMB) | payer MEDICARE, MEDICAID, SELFPAY ==
--- OUTSIDE RECORDS SUMMARY | 2025-01-16 14:19 | XMS_ITS ---
Author Organization Yovanny Noel III, MD Address [address] [place] [address] Care Team Providers Care Patient Coordinator Name Role Phone Yovanny Noel Primary Care Provider [phone] Allergies Allergen (clinical drug ingredient) Drug/Non Drug Allergy documented on EMR Reaction Allergy Type Onset Date Status No Known Drug Allergy Unknown Drug Allergy Active REASON FOR VISIT Telehealth Medications Medication SIG (Take, Route, Frequency, Duration) Notes Start Date End Date Status K-Tab 10 MEQ 1 tablet with food Orally Once a day 02/15/2021 Active Simvastatin 40 MG Take 1 tablet by paras in the evening Orally Once a day Active Gabapentin 300 MG 1 capsule Orally thr ee times a day 01/23/2023 Active Pregabalin 50 MG 1 capsule Orally Twi ce a day Active Cyclobenzaprine HCl 10 MG as directed Or ally three times a day 08/15/2022 Active amLODIPine Besylate 10 MG 1 tablet Orall y Once a day Active Furosemide 40 MG 1 tablet Orally Once a day 02/15/2021 Active Montelukast Sodium 10 MG 1 tablet in the evening Orally Once a day Active Ibuprofen 800 MG 1 tablet Orally Thre e times a day 07/28/2016 Active Combivent 18-103 MCG/ACT 2 puffs Inhalat ion Six times a day Active Escitalopram Oxalate 20 MG 1 tablet Oral ly Once a day 12/29/2021 Active Flonase 50 MCG/ACT 1 spray in each nost ril Nasally Once a day 09/28/2023 Active Esomeprazole Magnesium 40 MG Take 1 caps ule by mouth once daily Active Pantoprazole Sodium 20 MG 1 tablet 1/2 t o 1 hour before morning meal Orally Once a day 10/27/2024 Active Advair Diskus 500-50 MCG/DOSE 1 puff Inh alation every 12 hrs Active hydrALAZINE HCl 50 MG 1 tablet with food Orally Four times a day Active Metoprolol Tartrate 100 MG Take 1 tablet by mouth twice daily with food Active Senna Laxative 8.6 MG 1 tablet Orally tw ice a day 12/29/2024 Active dexAMETHasone 2 MG 1 tablet Orally ever y 12 hrs 10/21/2024 Active Clopidogrel Bisulfate 75 MG TAKE 1 TABLE T BY MOUTH ONCE DAILY Orally Once a day Active guaiFENesin-Codeine 100-10 MG/5ML 10 mL as needed Orally every 6 hrs 07/22/2024 Active Guaiatussin AC 100-10 MG/5ML 10 mL as needed Orally every 6 hrs As needed 07/22/2024 Active Loratadine 10 MG 1 tablet Orally Once a day 07/22/2024 Active Lisinopril 20MG TAKE ONE TABLET BY MOUTH EVERY DAY Active Meloxicam 15 MG Take 1 tablet by paras th once daily Active Benzonatate 200 MG 1 capsule as needed Orally Three times a day 06/24/2024 Active Polyethylene Glycol 3350 17 GM 1 packet mixed with 8 ounces of fluid Orally Once a day Active Lisinopril 40 MG 1 tablet Orally Once a day 11/12/2023 Active Social History Tobacco Use: Social History Observation Description Date Details (start date - stop date) Former Smoker NA - NA Sex Assigned At : Social History Observation Description Sex Assigned At Female Tobacco Control (Standard) Question Answer Notes Tobacco use: Former smoker How long has it been since you last smoked? Grea ter than 10 years Additional Findings: Tobacco non-user Ex-cigaret te smoker Encounters Encounter Location Date Provider Diagnosis Yovanny Noel III, MD [address] [place] [address] [place] [address] 01/14/2025 Yovanny Noel Asthma J45.909 Assessments Encounter Date Diagnosis (ICD Code) Assessment Notes Treatment Notes Treatment Clinical Notes 01/14/2025 Asthma (ICD-10 - J45.909) She has bbeen treated of asthma lately. There was no wheezing today. She was breathing room air comfortably. Current therapy was continued. Plan Of Treatment Medication Medication Name Sig Start Date Stop Date Notes K-Tab 10 MEQ 1 tablet with food O rally Once a day 02/15/2021 Simvastatin 40 MG Take 1 tablet by paras th in the evening Orally Once a day Gabapentin 300 MG 1 capsule Orally thr ee times a day 01/23/2023 Pregabalin 50 MG 1 capsule Orally Twi ce a day Cyclobenzaprine HCl 10 MG as directed Or ally three times a day 08/15/2022 amLODIPine Besylate 10 MG 1 tablet Orally Once a day Furosemide 40 MG 1 tablet Orally Once a day 02/15/2021 Montelukast Sodium 10 MG 1 tablet in the evening Orally Once a day Ibuprofen 800 MG 1 tablet Orally Thre e times a day 07/28/2016 Combivent 18-103 MCG/ACT 2 puffs Inhalat ion Six times a day Escitalopram Oxalate 20 MG 1 tablet Orally Once a day 12/01 Flonase 50 MCG/ACT 1 spray in each nost ril Nasally Once a day 09/28/2023 Esomeprazole Magnesium 40 MG Take 1 caps ule by mouth once daily Pantoprazole Sodium 20 MG 1 tablet 1/2 t o 1 hour before morning meal Orally Once a day 10/27/2024 Advair Diskus 500-50 MCG/DOSE 1 puff Inh alation every 12 hrs hydrALAZINE HCl 50 MG 1 tablet with food Orally Four times a day Metoprolol Tartrate 100 MG Take 1 tablet by mouth twice daily with food Senna Laxative 8.6 MG 1 tablet Orally tw ice a day 12/29/2024 dexAMETHasone 2 MG 1 tablet Orally ever y 12 hrs 10/21/2024 Clopidogrel Bisulfate 75 MG TAKE 1 TABLE T BY MOUTH ONCE DAILY Orally Once a day guaiFENesin-Codeine 100-10 MG/5ML 10 mL as needed Orally every 6 hrs 07/22/2024 Guaiatussin AC 100-10 MG/5ML 10 mL as ne eded Orally every 6 hrs 07/22/2024 Loratadine 10 MG 1 tablet Orally Once a day 07/22/2024 Lisinopril 20MG TAKE ONE TABLET BY M OUTH EVERY DAY Meloxicam 15 MG Take 1 tablet by paras th once daily Benzonatate 200 MG 1 capsule as needed Orally Three times a day 06/24/2024 Polyethylene Glycol 3350 17 GM 1 packet mixed with 8 ounces of fluid Orally Once a day Lisinopril 40 MG 1 tablet Orally Once a day 11/12/2023 Next Appt Details Follow Up: 5 weeks, Reason: OV Provider Name:Yovanny Noel, 02/18/2025 10:30:00 AM, [address] [place] [address] [address], [place], [address], Provider Name:Yovanny Noel, 10/05/2025 10:30:00 AM, [address] [place] [address] [address], [place], [address], Progress Notes * Lynnette MCGILL TDOB: [birth year] (64 yo F)Acc No.[id number]:01/14/2025 Patient:?Lynnette MCGILL Provider:?Yovanny Noel MD :1960???Age:64 Y???Sex:Female D ate:01/14/2025 Address:[address] [place], [place] [address] Subjective: * Chief Complaints: * ???1. Telehealth. * HPI: ???:?ent? did nothing, better, can sleep better, ent gave nose spray? ?breathing ok, still constipated keep taking senna and? add miralsx, f.u. 4-6 weks. ?Telehealth?Location of provider rendering services:?{...} [address] [facility] [address] ?Location of patient:?address listed in demographics for today's visit ?Patient identification confirmed using:?Name, ?Telehealth method:?Telephone only. Patient not visible to care provider. ?Consent:?Patient verbally consented to treatment, Patient verbally consented to billing insurance company, Patient informed of any privacy concerns related to method of visit ?Total time spent with patient (mins)?15 * ROS:?General/Constitutional:?pain?only normal aches and pains.?Chills?denies.?Fatigue?admits.?Fever?denies.?ENT:?Decreased hearing?denies.?Respiratory:?Cough?denies.?Cardiovascular:?Chest pain with exertion?denies.?Dyspnea on exertion?denies.?Shortness of breath?denies.?Gastrointestinal:?Constipation?denies.?Decreased appetite?denies.?Diarrhea?denies.?Heartburn?denies.?Nausea?denies.?Rectal bleeding?denies.?Vomiting?denies.?Hematology:?bruising?denies.?petechiae?denies.?Swollen glands?none have been noted.?Genitourinary:?Frequent urination?denies.?Musculoskeletal:?Muscle aches?denies.?Painful joints?denies.?Sciatica?denies.?Weakness?denies.?Skin:?Itching?denies.?Rash?denies.?Skin lesion(s)?denies.?Neurologic:?Difficulty speaking?denies.?Dizziness?denies.?Headache?denies.?Low back pain?denies.?Psychiatric:?Depressed mood?denies.? * Medical History:?Thyroid nod ule, Right knee fracture, Obesity, Hypertension, Asthma, Back pain, Hyperlipidemia, Atypical chest pain, Last mammogram 11/08/2012, Sleep apnea, Bulging disc, Narrowing in the spine, The patient has a history of asthma.. * Surgical History:?hysterecto my for bleeding , Cardiac Catheterization 10/28/2020, Sleeve Gastrectomy [facility] 09/14/21, No history . * Hospitalization/Major Diagno stic Procedure:?re: Hypertension 07/2018, CVA 07/2020, No history . * Family History:?Father: dece ased 70 yrs, [...] ???She is single and working at a [employer]. She has four children, 2 of each, Emir, Fuentes, Benson, Marie. She was born in [place]. * Medications:?Taking hydrALAZ INE HCl 50 MG Tablet 1 tablet with food Orally Four times a day , Taking Metoprolol Tartrate 100 MG Tablet Take 1 tablet by mouth twice daily with food , Taking Pantoprazole Sodium 20 MG Tablet Delayed Release 1 tablet 1/2 to 1 hour before morning meal Orally Once a day , Taking Esomeprazole Magnesium 40 MG Capsule Delayed Release Take 1 capsule by mouth once daily , Taking Flonase 50 MCG/ACT Suspension 1 spray in each nostril Nasally Once a day , Taking Escitalopram Oxalate 20 MG Tablet 1 tablet Orally Once a day , Taking Advair Diskus 500-50 MCG/DOSE Aerosol Powder Breath Activated 1 puff Inhalation every 12 hrs , Taking Combivent 18-103 MCG/ACT Aerosol 2 puffs Inhalation Six times a day , Taking Ibuprofen 800 MG Tablet 1 tablet Orally Three times a day , Taking Montelukast Sodium 10 MG Tablet 1 tablet in the evening Orally Once a day , Taking amLODIPine Besylate 10 MG Tablet 1 tablet Orally Once a day , Taking Furosemide 40 MG Tablet 1 tablet Orally Once a day , Taking K-Tab 10 MEQ Tablet Extended Release 1 tablet with food Orally Once a day , Taking Cyclobenzaprine HCl 10 MG Tablet as directed Orally three times a day , Taking Pregabalin 50 MG Capsule 1 capsule Orally Twice a day , Taking Gabapentin 300 MG Capsule 1 capsule Orally three times a day , Taking Simvastatin 40 MG Tablet Take 1 tablet by mouth in the evening Orally Once a day , Taking Lisinopril 40 MG Tablet 1 tablet Orally Once a day , Taking Polyethylene Glycol 3350 17 GM Packet 1 packet mixed with 8 ounces of fluid Orally Once a day , Taking Benzonatate 200 MG Capsule 1 capsule as needed Orally Three times a day , Taking Meloxicam 15 MG Tablet Take 1 tablet by mouth once daily , Taking Loratadine 10 MG Tablet 1 tablet Orally Once a day , Taking Guaiatussin AC 100-10 MG/5ML Syrup 10 mL as needed Orally every 6 hrs As needed, Taking guaiFENesin-Codeine 100-10 MG/5ML Solution 10 mL as needed Orally every 6 hrs , Taking Lisinopril 20MG Tablet TAKE ONE TABLET BY MOUTH EVERY DAY , Taking Clopidogrel Bisulfate 75 MG Tablet TAKE 1 TABLET BY MOUTH ONCE DAILY Orally Once a day , Taking dexAMETHasone 2 MG Tablet 1 tablet Orally every 12 hrs , Taking Senna Laxative 8.6 MG Tablet 1 tablet Orally twice a day , stop date 06/27/2025, Medication List reviewed and reconciled with the patient * Allergies:?No Known Drug All ergy. Objective: * Vitals:? Assessment: * Assessment: 1.?Asthma - J45.909???Notes :She has bbeen treated of asthma lately. There was no wheezing today. She was breathing room air comfortably. Current therapy was continued.??? Plan: * Treatment: 2.?Others? Continue Pantoprazole Sodium Tablet Delayed Release, 20 MG, 1 tablet 1/2 to 1 hour before morning meal, Orally, Once a day.?? * Procedure Codes:?06755 SYNCH AUDIO-ONLY EST SF 10 * Follow Up:?5 weeks (Reason: OV) * Images: * The named appointment provid er may or may not be the originator of this progress note, and it is not deemed complete until electronically signed by the appointment provider. Sign off status: Pending * Provider:?Yovanny Noel MD Date:?12/30 Generated for Noreen fonseca/Joel/Dannyitting on:?01/16/2025 02:19 PM EDT History and Physical Notes * HPI (History of Present Illness) Category Sub-Category Detail Notes Telehealth Location of [facility] rendering services:: {...} [address] [address] Location of patient:: address listed in demographics [...]
--- OUTSIDE RECORDS SUMMARY | 2025-01-16 14:19 | XMS_ITS | Clinical Summary ---
Author Organization [facility] Address [address] [place] [address] Phone Care Team Providers Care Communications Scientist Name Role Phone Ghazala Noel MD Primary Care Provider [phone] Allergies Active Allergy Reactions Criticality Noted Date Comments [facility] CHOLECALCIFEROL, VITAMIN D3, ORAL Take by mouth. Active inhalational spacing device (Aerochamber MV) inhaler 1 [...] . Maintenance therapy is 0 Active fluticasone furoate-vilanter oL (Breo Ellipta) 200-25 mcg/dose inhaler Inhale 1 Puff into the lungs daily. 0 Active furosemide (LASIX) 40 mg tablet Take 40 mg by mouth daily. Active gabapentin (NEURONTIN) 100 mg capsule Take 100 mg by mouth 3 times daily. Active hydrALAZINE (APRESOLINE) 10 mg tablet TAKE 1 TABLET BY MOUTH TWICE DAILY WITH FOOD 0 Active hydroCHLOROthiaz lucie (HYDRODIURIL) 25 mg tablet Take 25 mg by mouth daily. Active ibuprofen (ADVIL,MOTRIN) 800 mg tablet TAKE 1 TABLET BY MOUTH THREE TIMES DAILY 0 Active lisinopril (PRINIVIL,ZESTRI L) 40 mg tablet Take 40 mg by [...] XL (WELLBUTRIN XL) 150 mg 24 hr tabletIndication s:Class 3 severe obesity due to excess calories with serious comorbidity and body mass index (BMI) of 40.0 to 44.9 in adult Take 1 tablet (150 mg total) by mouth 1 (one) time each day. Do not crush, chew, or split. 90 tablet 1 5 06/13/20 25 Active topiramate (TOPAMAX) 100 mg tabletIndication s:Class 3 severe obesity due to excess calories with serious comorbidity and body mass index (BMI) of 40.0 to 44.9 in adult Take 1 tablet (100 mg total) by mouth at bedtime. 30 each 2 5 03/15/20 25 Active Active Problems Problem Noted Date Diagnosed Date Eating disorder, unspecified 08/09/2021 Overview (08/26/2024): Tiffanie Benitez PhD History of cerebrovascular a ccident (CVA) with residual deficit 08/09/2021 Overview (08/26/2024): Left sided weakness Left ventricular hypertrophy 05/21/2019 Pulmonary nodules 05/21/2019 DEMI (obstructive sleep apnea) 02/07/2018 Overview (08/26/2024): [facility] Home Sleep Apnea Test: Date 04/30/2019; [...] EDT Office Visit Bariatric Surgery - [address] [address] Julian Hubbard MD Class 3 severe obesity due to excess calories with serious comorbidity and body mass index (BMI) of 40.0 to 44.9 in adult (CMS/HCC V24, CMS/HCC V28) (Primary Dx) from Last 3 Months Surgical History Surgery Date Site/Laterality Comments HYSTERECTOMY PROCEDURE: HISTORICAL HYSTERECTOMY KNEE SURGERY Left PROCEDURE: HISTORICAL KNEE SURGERY Medical History Medical History Date Comments Morbid obesity with BMI of 5 0.0-59.9, adult (CMS/HCC V24, CMS/HCC V28) 12/04/2017 DX:Morbid obesity wit h BMI of 50.0-59.9, adult ([facility]LY [facility]) Hyperlipidemia 12/04/2017 DX:Hyperlipidemi a Nontoxic uninodular goiter 12/04/2017 DX:No ntoxic uninodular goiter Hypertension 12/04/2017 DX:Hypertension Asthma 12/04/2017 DX:Asthma Lumbar radiculopathy 12/04/2017 DX:Lumbar r adiculopathy Eating disorder, unspecified 08/09/2021 DX: Eating disorder, unspecified; COMMENT: Tiffanie Benitez PhD Left ventricular hypertrophy 05/21/2019 DX: Left ventricular hypertrophy DEMI (obstructive sleep apnea) 02/07/2018 DX :DEMI (obstructive sleep apnea); COMMENT: [facility] Home Sleep Apnea Test: Date 04/30/2019; [...] Upcoming Encounters Date Type Department Care Team ([facility] st Contact Info) Description 04/21/2025 10:15 AM EDT Office Visit Bariatric Surgery - [place] [address] [place] [id number] Julian Hubbard MD [address] [place] [address] Health Maintenance Due Date Last Done Comments [...] age to complete this topic Meningococcal B Vaccine Aged Out No l onger eligible based on patient's age to complete this topic RSV Immunization Patients Under 20 months Aged Out No longer eligible based on patient's age to complete this topic Varicella Vaccines Aged Out No longer eligible based on patient's age to complete this topic Procedures Procedure Name Priority Date/Time Associated Diagnosis Comments DEPRESSION SCREENING Routine 07/08/2024 [facility] SCREENING DIGITAL Routine 05/08/2024 1:31 PM EDT Encounter for screening mammogram for malignant neoplasm of breast ANNUAL BMP BLOOD TEST Routine 01/30/2023 LIPID PANEL Routine 04/22/2021 from Last 3 Months or Most Recently Relevant to Health Maintenance Results * Depression Screening (07/08/2024) Depression Screening Abstracted us Historical Provider MD HEALTH MAINTENANCE Final Result * [facility] SCREENING DIGITAL (05/08/2024 1:31 PM EDT) Anatomical Region Laterality Modality Mammography 05/08/2024 10:5 9 AM EDT Narrative 05/08/2024 1:31 PM EDT [facility] Diagnostic Imaging Department [address] [place] [address] [id number] Patient: ??RICH MCGILL ?/Age/Sex: 1960 - 63 - F Unit#: ??[id number] ? Location/Status: ??SPDIMAM/REG CLI ? Mnemonic/Ordering Site: ??DIGSC/SPMAM Ordering Physician: ??GHAZALA NOEL MD [facility] Screening Digital - 05/08/24 - 1125 Report Status:Signed EXAM: [facility] Screening Digital EXAM DATE AND TIME: 05/08/2024 11:26 AM HISTORY: ??Screening. Right breast biopsy in 2009, pathology benign. COMPARISON: ??06/26/22, 06/22/21, 06/18/20 TECHNIQUE: Bilateral digital breast tomosynthesis was performed in the CC and MLO projections. Computer aided detection with [employer] 3D 3.1 was employed. TISSUE DENSITY: a. [...] Physician: ??CRYSTAL CARMEN MD Electronically Signed by: ??CRYSTLA CARMEN MD Dic Date/Time: ??05/08/24 1331 Sign date/Time: ??05/08/24 1331 Procedure Note Crystal Carmen MD - 07/16/2024 [facility] Diagnostic Imaging Department [address] [place] [id number] Patient: RICH MCGILL Serg /Age/Sex: 1960 - 63 - F Unit#: [id number] Location/Status: SPDIMAM/REG CLI Mnemonic/Ordering Site: DIGMT/[facility] Ordering Physician: GHAZALA NOEL MD [facility] Screening Digital - 05/08/24 - 1125 Report Status:Signed EXAM: [facility] Screening Digital EXAM DATE AND TIME: 05/08/2024 11:26 AM HISTORY: Screening. Right breast biopsy in 2009, pathology benign. COMPARISON: 06/26/22, 06/22/21, 06/18/20 TECHNIQUE: Bilateral digital breast tomosynthesis was performed in the CCand MLO projections. Computer aided detection with [employer] AI 3D 3.1was employed. TISSUE DENSITY: a. The [...] mammogram BILATERAL in 1 year. Dictating Physician: RCYSTAL CARMEN MD Electronically Signed by: CRYSTAL CARMEN MD Dic Date/Time: 05/08/24 1331 Sign date/Time: 05/08/24 1331 Ghazala Noel MD IMG BI PROCEDURES Final Result * Annual BMP Blood Test (01/30/2023) [facility]ologist [facility] Annual BMP Blood Test Abstracted Historical Provider HEALTH MAINTENANCE Final Result * (ABNORMAL) Lipid panel (04/22/2021) Pathologist [facility] LDL/HDL Ratio 6(A) 0 - 4 Triglycerides 159(A) 0 - 150 mg/dL Cholesterol 273(A) 0 - 200 mg/dL HDL 48 >=40 mg/dL LDL Cholesterol 194(A) 0 - 100 mg/dL Blood Venous blood specimen / Unknown Historical Provider LAB BLOOD ORDERABLES Frieda l Result from Last 3 Months or Most Recently Relevant to Health Maintenance Insurance MEDICAID - [place] MEDICARE Care Teams Communications Scientist Relationship Specialty Start Date End Date Ghazala Noel MD [address] [address] PCP - General Oncology 07/25/24
--- OUTSIDE RECORDS SUMMARY | 2025-01-16 14:19 | XMS_ITS ---
Author Organization Yovanny Noel III, MD Address [address] [place] [address] Care Team Providers Care Pediatric Dietician Name Role Phone Yovanny Noel Primary Care [...] Date Provider Diagnosis Yovanny Noel III, MD [address] [place] [address] [place] [address] 12/29/2024 Yovanny Noel Asthma J45.909 ; Mor [...] 3 Weeks, Reason: Telehealth Provider Name:Yovanny Noel, 02/18/2025 10:30:00 AM, [address] [place] [address] [place] [id number], [place], [phone], Provider Name:Yovanny Noel, 10/05/2025 10:30:00 AM, [address] [place] [address] [address]UG[address] GHOSH, [place], [address], Progress Notes * Lynnette MCGILL TDOB: [birth year] (64 yo F)Acc No.[id number]:12/29/2024 Progress Notes Patient:Lynnette BARRIGA Provider:?Yovanny Noel MD :1960???Age:64 Y???Sex:Female D ate:12/29/2024 Address:[address] [place], [place] [id number] Subjective: * Chief Complaints: * ???Drainage in [...] is single and working at a local [employer]. She has four children, 2 of each, Emir, Fuentes, Benson, Marie. She was born in [place]. * Medications:?TakingPantopraz ole Sodium 20 MG Tablet [...] - 12/24/2024 11:13 AM)?ValueReference Range?B Type Natriuretic Pdfitcp56<100 - pg/mL * Examination: ???General Examination: ?GENERAL [...] Noel MD Date:?12/01 Generated for Noreen fonseca/Joel/eTjosesmitting on:?01/16/2025 02:19 PM EDT History and Physical [...]
--- OUTSIDE RECORDS SUMMARY | 2025-01-16 14:19 | XMS_ITS | Data Portability ---
Author Organization [place] - [facility], Allergy Address [address] [address] Care Team Providers Care Ear Flap Binder Name Role Phone GHAZALA COX Primary Care Provider [phone] Assessment Encounter Date Assessment Date Assessment LastModified [...] seen and examined by Dr. Rivera. Lilliam Vealzquez PA-C functioned as a scribe for this visit. Not available 09/19/2024 12:32:10 11/04/2024 11/04/2024 63 year old female presents to review CT sinus which was performed at [facility] 10/07/24. Reviewed with the patient that the scan showed no evidence of sinus disease. I am glad to hear that her facial pain is improving. She will follow up for allergy testing. Not available 11/04/2024 15:35:35 Plan of Treatment Reminders Order Date Submit Date Provider Last Modified By Organization Details Last Modified Time Details Appointments Establish ed 15 2024 11:15A Lindsey VELAZQUEZ PA-C Not available Not available Not available Lab [...] Imaging CT, maxillofa cial, w/o contrast 2023 024 [email or web address] [facility], [address] [place] [address], [place] [address], [place], [address], 10/08/2024 15:43:52 Medication Orders ipratropi um bromide 21 mcg (0.03 %) nasal spray 2024 025 [facility], [address] [facility], [place], [address], 12/31/2024 08:50:35 Patient TargetsNo targets recorded. Patient Instructions Encounter Date Encounter Id Patient Instructions Last Modified By Organization Details Last Modified Time 11/12/2024 [id number] Nursing Documentation for Allergy Testing: Ordering Provider {{Dr. Ce Rivera*}} Weight:lbs:? ? ?275kg: ? ? ? PFT {{Yes* no}} With Bronchodilator {{Yes no*}} Dr. mi needed to proceed with allergy testing? {{Yes* No}} {{Dr. Ce Hernandez* Dr. Patrick Rivera}} ok'd testing {{Yes No Pulmonar y Clearance PCP Clearance RAST*}} History of Asthma:{{Yes* No} } Asthma Meds:breo, incruse, montelukast ? ? ?Last used:? ? ? Asthma exacerbated by: ? ? ? Chance that : {{Yes No* Not Sure N/A}} Fear of needles: {{Yes* No}} Regular medications reviewed in Computer: {{Yes* No}} Medication allergies: {{Reviewed NKDA*} } Antihistamine use: {{Yes No*}} Medications used: ? ? ? Food Allergies: ? ? ? tomatoes and watermelon Any foods make your mouth feeling itchy: {{Yes* No}} If yes:cantelope and tomato gives bumps ? ? ? History of severe reaction where had to go to ER? {{Yes No*}} If yes details: ? ? ? 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 ? ? Smoker: {{Yes Current Never For [place]}} If former smoker-how much ? ? ?5 / day for how long 10 yrs ? ? ? When quit 20 yrs ? ? ? years ago Smoking now-how much ? ? ? /day for how long ? ? ? Occupation/Social History: ? ? ? Symptoms having: {{Congestion* Pos t Nasal Drip Headache Run ny Nose Cough Other} } If other: ? ? ? Frequency {{Seasonally Year Round*}} Spirometry Contraindications : Heart attack in the last 3 months: [...] next steps ? ? ? Written by: {{KOSTAS Rodriguez, [facility]* Rosarioleona Wilcox}} shana Not available 11/12/2024 10:43:53 12/31/2024 [id number] Patient appears to have nonallergic/vasom otor rhinitis with postnasal drip. This is likely exacerbated by her use of CPAP. I have suggested saline irrigations twice daily with distilled water followed by ipratropium bromide 2 sprays each nostril up to 3 times daily. She will monitor her intraocular pressures with her eye doctor. She has an appointment coming up in March. Follow-up in 3 months. Consider fiberoptic laryngoscopy if persistent symptoms cuate Not available 12/31/2024 08:50:15 Reason for Referral None Reported. Results Created [...] >100. 00 Very High Not Available [facility] ([facility] [address] [place], [address], 11/14/2024 12:20:42 11/12/1911/14/2024 ALLER GENS, ZONE 1 X527-TlW D pteronyssinu s <0.10 kU/L class 0 Not Available [facility] ([facility] [address] [place], [address], 11/14/2024 12:20:42 11/12/19 25 11/14/2024 ALLER GENS, ZONE 1 P446-TaD D farinae <0.10 kU/L class 0 Not Available [facility] [address] [facility], [place], [address], 11/14/2024 12:20:42 11/12/19 25 11/14/2024 ALLER GENS, ZONE 1 D936-YtC CAT dander <0.10 kU/L class 0 Not Available [facility] [address] [facility], [place], [address], 11/14/2024 12:20:42 11/12/19 25 11/14/2024 ALLER GENS, ZONE 1 H103-WaJ dog dander <0.10 kU/L class 0 Not Available [facility] [address] [facility], [place], [address], 11/14/2024 12:20:42 11/12/19 25 11/14/2024 ALLER GENS, ZONE 1 x782-XfP bermuda grass <0.10 kU/L class 0 Not Available [facility] [address] [facility], [place], [address], 11/14/2024 12:20:42 11/12/19 25 11/14/2024 ALLER GENS, ZONE 1 e626-BdV bluegrass, [place] 0.14 kU/L class 0/I abnormal Not Available [facility] [address] [facility], [place], [address], 11/14/2024 12:20:42 11/12/19 25 11/14/2024 ALLER GENS, ZONE 1 e028-ZrG bahia grass <0.10 kU/L class 0 Not Available [facility] [address] [place], [address], 11/14/2024 12:20:42 11/12/19 25 11/14/2024 ALLER GENS, ZONE 1 A717-QfA cockroach, ivorian <0.10 kU/L class 0 Not Available [facility] [address] [place], [address], 11/14/2024 12:20:42 11/12/19 25 11/14/2024 ALLER GENS, ZONE 1 L134-OxM penicillium chrysogen <0.10 kU/L class 0 Not Available [facility] [address] [place], [address], 11/14/2024 12:20:42 11/12/19 25 11/14/2024 ALLER GENS, ZONE 1 Q713-KzL cladosporium herbarum <0.10 kU/L class 0 Not Available [facility] [address] [place], [address], 11/14/2024 12:20:42 11/12/19 25 11/14/2024 ALLER GENS, ZONE 1 E148-UyD aspergillus fumigatus <0.10 kU/L class 0 Not Available [facility] [address] [place], [address], 11/14/2024 12:20:42 11/12/19 25 11/14/2024 ALLER GENS, ZONE 1 X252-IuW mucor racemosus <0.10 kU/L class 0 Not Available [facility] [address] [place], [address], 11/14/2024 12:20:42 11/12/19 25 11/14/2024 ALLER GENS, ZONE 1 A014-ZdQ alternaria alternata <0.10 kU/L class 0 Not Available [facility] [address] [place], [address], 11/14/2024 12:20:42 11/12/19 25 11/14/2024 ALLER GENS, ZONE 1 Y737-LxD stemphylium herbarum <0.10 kU/L class 0 Not Available [facility] ([facility] [facility]) [address], [place], [address], 11/14/2024 12:20:42 11/12/19 25 11/14/2024 ALLER GENS, ZONE 1 J669-EiD common silver birch 0.12 kU/L class 0/I abnormal Not Available [facility] ([facility] [facility]) [address], [place], [address], 11/14/2024 12:20:42 11/12/19 25 11/14/2024 ALLER GENS, ZONE 1 L975-DyG oak, white <0.10 kU/L class 0 Not Available [facility] ([facility] [facility]) [address], [place], [address], 11/14/2024 12:20:42 11/12/19 25 11/14/2024 ALLER GENS, ZONE 1 I463-VbW elm, ivorian <0.10 kU/L class 0 Not Available [facility] ([facility] [facility]) [address], [place], [address], 11/14/2024 12:20:42 11/12/19 25 11/14/2024 ALLER GENS, ZONE 1 B275-JtO carmelita, white <0.10 kU/L class 0 Not Available [facility] ([facility] [facility]) [address] [facility], [place], [address], 11/14/2024 12:20:42 11/12/19 25 11/14/2024 ALLER GENS, ZONE 1 K160-CpU maple/box elder <0.10 kU/L class 0 Not Available [facility] ([facility] [facility]) [address], [place], [address], 11/14/2024 12:20:42 11/12/19 25 11/14/2024 ALLER GENS, ZONE 1 Y534-OxS hazelnut tree <0.10 kU/L class 0 Not Available [facility] ([place] [facility]) [address] [place], [address], 11/14/2024 12:20:42 11/12/19 25 11/14/2024 ALLER GENS, ZONE 1 P461-FrF hickory, white <0.10 kU/L class 0 Not Available [facility] ([place] [facility]) [address] [facility], [place], [address], 11/14/2024 12:20:42 11/12/19 25 11/14/2024 ALLER GENS, ZONE 1 D618-AaM white mulberry <0.10 kU/L class 0 Not Available [facility] ([place] [facility]) [address] [facility], [place], [address], 11/14/2024 12:20:42 11/12/19 25 11/14/2024 ALLER GENS, ZONE 1 L381-JxG cedar, mountain <0.10 kU/L class 0 Not Available [facility] ([facility] [facility]) [address] [facility], [place], [address], 11/14/2024 12:20:42 11/12/19 25 11/14/2024 ALLER GENS, ZONE 1 Z293-BfP ragweed, short 0.21 kU/L class 0/I abnormal Not Available [facility] ([facility] [facility]) [address] [facility], [place], [address], 11/14/2024 12:20:42 11/12/19 25 11/14/2024 ALLER GENS, ZONE 1 Z232-DxT mugwort <0.10 kU/L class 0 Not Available [facility] ([facility] [address] [place], [address], 11/14/2024 12:20:42 11/12/19 25 11/14/2024 ALLER GENS, ZONE 1 B641-KiH plantain, chinese <0.10 kU/L class 0 Not Available [facility] ([facility] [facility]) [address] [facility], [place], [address], 11/14/2024 12:20:42 11/12/19 25 11/14/2024 ALLER GENS, ZONE 1 P116-SpQ pigweed, common <0.10 kU/L class 0 Not Available [facility] [address] [facility], [place], [address], 11/14/2024 12:20:42 11/12/19 25 11/14/2024 ALLER GENS, ZONE 1 M337-EjN sheep sorrel <0.10 kU/L class 0 Not Available [facility] [address] [facility], [place], [address], 11/14/2024 12:20:42 11/12/19 25 11/14/2024 ALLER GENS, ZONE 1 I707-ZdN nettle <0.10 kU/L class 0 Not Available [facility] [address] [facility], [place], [address], 11/14/2024 12:20:42 11/12/19 25 11/14/2024 IMMUN OGLOB ULIN E, TOTAL immunoglobul in E, total 2 IU/mL 6-495 below low normal Not Available [facility] [address] [facility], [place], [address], 11/14/2024 12:20:42 10/08/19 25 10/07/2024 CT, maxil lofac ial, w/o contr ast No observ ation record ed. [email or web address] [facility] [address] [place] [address], [address], 10/09/2024 09:16:23 10/08/19 25 10/07/2024 CT, maxil lofac ial, w/o contr ast No observ ation record ed. [email or web address] [facility] [address] [facility] [address], [place], [address], 10/09/2024 09:16:23 10/08/19 25 10/07/2024 CT, maxil lofac ial, w/o contr ast No observ ation record ed. BARCODE [facility] [address] [facility] [address], [place], [address], 10/08/2024 16:03:22 11/12/19 25 mary metry testi ng* No observ ation record ed. [email or web address] Not Available 2024 18:02:42 Result Notes None recorded. Problems Name Problem SNOMED Code Status Onset Date Resolution Date Notes Provider Name and Address Organization Details Recorded Time Severe obesity 07051517838 104 Active 2020 Morbid (severe) obesity due to excess calories; Note: Date Diagnosed : 06/16/2021 11:31 AM (E66.01) Not Available [facility] 4 03:25:06 Obstructi ve sleep apnea syndrome 80352739 Active 2020 Obstructi ve sleep apnea (adult) (pediatri c); Note: Date Diagnosed : 06/16/2021 11:31 AM (G47.33) Not Available [facility] 4 03:25:07 Uncomplic ated asthma 908095185 Active 2020 Unspecifi ed asthma, uncomplic ated; Note: Date Diagnosed : 06/16/2021 11:31 AM (J45.909) Not Available [facility] 4 03:25:07 Allergic rhinitis caused by pollen 09690810 Active 2020 Allergic rhinitis due to pollen; Note: Date Diagnosed : 06/16/2021 11:31 AM (J30.1) Not Available [facility] 4 03:25:06 Chronic sinusitis 39501542 Active 2023 LILLIAM VELAZQUEZ PA-C [address] [place] [address], [place], [address] , [facility] - [facility] 4 11:00:07 Atypical facial pain 72238839 Active 2024 LILLIAM VELAZQUEZ PA-C [address], [place], [address] , [place] [facility] 5 15:35:35 Allergic rhinitis 01384163 Active 2024 ETELVINA MARTIN, RMA [address], [place], [place], [address] , [place] - [facility] 5 09:19:15 Posterior rhinorrhe a 02672514 Active 2024 FER ZAVALA MD [address], [place], [address] , [place] - [facility] 5 08:49:08 Chronic rhinitis 83406199 Active 2024 FER ZAVALA MD [address], [place], [place], [address] , [place] - [facility] 5 08:49:14 Problem Notes None recorded. Procedures Surgical History Date Name Laterality Status Provider Name and Address Organization Details Recorded Time JMSNasal/Sinus Endoscopy completed LILLIAM VELAZQUEZ PA-C [address] [facility] [place],[address], [place], [address], [place] [facility] 09/19/2024 12:23:56 Imaging Results Imaging Date Name Status [facility]Modified by [facility] Details LastModified Time 10/07/2024 CT, maxillofacial, w/o contrast [facility] [address], [address], 10/09/2024 09:16:23 10/07/2024 CT, maxillofacial, w/o contrast [facility] [address], [address], 10/09/2024 09:16:23 10/07/2024 CT, maxillofacial, w/o contrast completed [facility] [address], [address], 10/08/2024 16:03:22 11/12/2024 spirometry testing* completed [email or web address] [...] Not Available furosemid e 40 mg tablet 12/31 completed Medicati on ID: [id number] B rand Name: lisset calhoun Send Method: E-Prescr ibed Sub s Allowed: subs OK Medic ationGen ericName : furosemi de Not Available Not Available Not Available doxycycli ne hyclate 100 mg capsule TAKE 1 CAPSULE BY MOUTH TWICE DAILY FOR 14 DAYS 12/31 completed Not Available Not Available Not Available albuterol sulfate 2.5 mg/3 mL (0.083 %) solution for nebulizat ion USE 1 VIAL IN NEBULIZE R EVERY 4 HOURS NEEDED SHORTNES S OF BREATH OR WHEEZING active Not Available Not Available No t Available trazodone 50 mg tablet TAKE 1 TO 2 TABLETS BY MOUTH ONCE DAILY AT BEDTIME active Not Available Not Available No t Available polyethyl izaiah glycol 3350 17 gram oral powder packet DISSOLVE 1 PACKET IN 8OZ OF FLUID & DRINK ONCE DAILY 12/31 completed Not Available Not Available Not Available metoprolo l tartrate 100 mg tablet TAKE 1 TABLET BY MOUTH TWICE DAILY WITH FOOD active Not Available Not Available No t Available benzonata te 200 mg capsule TAKE 1 CAPSULE BY MOUTH THREE TIMES DAILY NEEDED 11/04 completed Not Available Not Available Not Available senna 8.6 mg tablet TAKE 1 TABLET BY MOUTH TWICE DAILY active Not Available Not Available No t Available meloxicam 15 mg tablet TAKE 1 [...] ON UNTIL 72 HOURS OF LAST DOSE 12/31 completed Not Available Not Available Not Available hydroxyzi ne HCl 50 mg tablet TAKE 1 TABLET BY MOUTH THREE TIMES DAILY NEEDED FOR ANXIETY 12/31 completed Not Available Not Available Not Available clopidogr el 75 mg tablet TAKE 1 TABLET BY MOUTH ONCE DAILY active Not Available Not Available No t Available doxycycli ne monohydra te 100 mg tablet TAKE 1 TABLET BY MOUTH TWICE DAILY FOR 14 DAYS 12/31 completed Not Available Not Available Not Available spironola ctone 25 mg tablet TAKE [...] t Available dexametha sone 2 mg tablet 12/31 completed Not Available Not Available Not Available trazodone 150 mg tablet TAKE 2 TABLETS BY MOUTH ONCE DAILY AT BEDTIME (DOSE INCREASE D) 12/31 completed Not Available Not Available Not Available esomepraz ole magnesium 40 mg capsule,d elayed release TAKE 1 CAPSULE BY MOUTH ONCE DAILY active Not Available Not Available No t Available clotrimaz ole-betam ethasone 1 %-0.05 % topical cream APPLY CREAM TOPICALL Y TO RASH AREA ONCE DAILY 12/31 completed Not Available Not Available Not Available metoprolo l tartrate 50 mg tablet 12/31 completed Medicati on ID: [id number] B rand Name: metoprol ol tartrate Send Method: E-Prescr ibed Sub s Allowed: subs OK Speci al Instruct ion: TAKE 1 TABLET BY MOUTH TWICE DAILY DIRECTED Medicat ionGener icName: metoprol ol tartrate Not Available Not Available Not Available docusate sodium 100 mg capsule TAKE 1 CAPSULE BY MOUTH TWICE A DAY 12/31 completed Not Available Not Available Not Available gabapenti n 300 mg capsule 11/12 completed Medicati on ID: [id number] B rand Name: gabapent in Send Method: E-Prescr ibed Sub s Allowed: subs OK Medic ationGen ericName : gabapent in Not Available Not Available Not Available budesonid e 0.5 mg/2 mL suspensio n for nebulizat ion USE 2 ML IN NEBULIZE R ONCE DAILY 12/31 completed Not Available Not Available Not Available monteluka st 10 mg tablet TAKE 1 TABLET BY MOUTH ONCE DAILY active Not Available Not Available No t Available codeine 10 mg-guaife nesin 100 mg/5 mL oral liquid TAKE 10ML BY MOUTH EVERY 4 HOURS NEEDED FOR 10 DAYS 12/31 completed Not Available Not Available Not Available hydralazi ne 50 mg tablet TAKE 1 TABLET BY MOUTH 4 TIMES DAILY WITH FOOD active Not Available Not Available No t Available hydrochlo rothiazid e 25 mg tablet TAKE 1 TABLET BY MOUTH ONCE DAILY active Not Available Not Available No t Available mupirocin 2 % topical ointment APPLY OINTMENT TOPICALL Y TO AFFECTED AREA TWICE DAILY FOR 7 DAYS 12/31 completed Not Available Not Available Not Available azelastin e 137 mcg (0.1 %) nasal spray active Medicati on ID: [id number] B rand Name: azelasti ne Send Method: [...] THREE TIMES DAILY NEEDED FOR ALLERGY SYMPTOMS 12/31 completed Not Available Not Available Not Available lisinopri l 40 mg tablet TAKE 1 TABLET BY MOUTH ONCE DAILY active Not Available Not Available No t Available ondansetr on 4 mg disintegr ating tablet DISSOLVE 1 TABLET IN MOUTH EVERY 8 HOURS NEEDED FOR NAUSEA 12/31 completed Not Available Not Available Not Available topiramat e 100 mg tablet TAKE 1 TABLET BY MOUTH AT BEDTIME active Not Available Not Available No t Available fluticaso ne propionat e 50 mcg/actua tion nasal spray,bro pension USE 1 SPRAY(S) IN EACH NOSTRIL ONCE DAILY active Not Available Not Available No t Available ipratropi um bromide 21 mcg (0.03 %) nasal spray USE 2 SPRAY(S) IN EACH NOSTRIL THREE TIMES DAILY active Not Available Not Available No t Available loratadin e 10 mg tablet TAKE 1 TABLET BY MOUTH ONCE DAILY active Not Available Not Available No t Available spironola ctone 50 mg tablet 12/31 completed Medicati on ID: [id number] B rand Name: spironol actone S end Method: E-Prescr ibed Sub s Allowed: subs OK Speci al Instruct ion: TAKE 1 TABLET BY MOUTH ONCE DAILY. STOP REKHAU M SUPPLEME NT. Medi cationGe nericNam e: [...] BY MOUTH TWICE DAILY NEEDED FOR ANXIETY 12/31 completed Not Available Not Available Not Available escitalop jessica 10 mg tablet TAKE 1/2 (ONE-DEEPAK F) TABLET BY MOUTH ONCE DAILY FOR 7 DAYS THEN INCREASE TO 1 TABLET BY MOUTH ONCE DAILY active Not Available Not Available No t Available escitalop jessica 20 mg tablet TAKE 1 TABLET BY MOUTH ONCE DAILY 12/31 completed Not Available Not Available Not Available Prilosec OTC 20 mg tablet,de layed release 12/31 completed Medicati on ID: [id number] B rand Name: Prilosec OTC Send Method: E-Prescr ibed Sub s Allowed: subs OK Speci al Instruct ion: TAKE 1 TABLET BY MOUTH ONCE DAILY Me dication GenericN judith: Prilosec OTC Not Available Not Available Not Available bupropion HCl XL 300 mg 24 hr tablet, extended release TAKE 1 TABLET BY MOUTH ONCE DAILY 12/31 completed Not Available Not Available Not Available bupropion HCl XL 150 mg 24 hr tablet, extended release TAKE 1 TABLET BY MOUTH ONCE DAILY DO NOT CRUSH, CHEW, OR SPLIT active Not Available Not Available No t Available Vitamin D3 50 mcg (2,000 unit) capsule 12/31 completed Medicati on ID: [id number] B rand Name: Vitamin D3 Send Method: E-Prescr ibed Sub s Allowed: subs OK Medic ationGen ericName : Vitamin D3 Not Available Not Available Not Available Incruse Ellipta 62.5 mcg/actua tion powder for inhalatio n 12/31 completed Medicati on ID: [id number] B rand Name: Incruse Ellipta Send Method: E-Prescr ibed Sub s Allowed: subs OK Speci al Instruct ion: INHALE 1 PUFF BY MOUTH ONCE DAILY Me dication GenericN judith: Incruse Ellipta Not Available Not Available Not Available Breo Ellipta 200 mcg-25 mcg/dose powder for inhalatio n 12/31 completed Medicati on ID: [id number] B rand Name: Breo Ellipta Send Method: [...] No t Available Vitals Date Recorded Body height Body weight Provider Name and Address Organization Details Last Updated DateTime 12/31/2024 165.1 cm 618721.9 g Susan Crum [place] - [facility] 12/31/2024 08:32:27 Date Recorded Body weight Body mass index (BMI) Body height Provider Name and Address Organization Details Last Updated DateTime 09/19/2024 543045.27 g 46.4 kg/m2 165.1 cm Jessica Umanzor [place] - [facility] 09/19/2024 10:19:27 Date Recorded Body height Body mass index (BMI) Body weight Provider Name and Address Organization Details Last Updated DateTime 11/04/2024 165.1 cm 45.8 kg/m2 343818.9 g Emilyerika Ba [facility] 11/04/2024 14:55:31 Date Recorded Body height Body mass index (BMI) Body weight Oxygen saturation Oxygen saturation in Arterial blood by Pulse oximetry Heart rate Systolic blood pressure Diastolic blood pressure Systolic blood pressure Diastolic blood pressure Provider Name and Address Organization Details Last Updated DateTime 165.1 cm 45.8 kg/m2 371286. 9 g 98 % 98 % 76 /min 160 mm[Hg] 94 mm[Hg] 172 mm[Hg] 96 mm[Hg] [facility], [address], [address], [facility] 10:14:58 Social History Question Answer Notes LastModified by Organizat ion Details LastModified Time Tobacco Smoking Status Former Smoker [facility], [address], [facility] 11/12/2024 09:17:45 When Did You Quit Smoking? [...] Emphysema N Migraines N Thyroid Problems N Glaucoma N Depression N COPD N Developmental Delay N Nasal or Sinus Problems N Anemia N Immune System Disorder N Anesthesia Complications N Heart Attack ([place]) N Other Skin Condition N Diabetes N Rhinitis N Bleeding Disorder N Food Allergy Y Arthritis N Hearing Loss N Hyperlipidemia N Cancer N Stroke N Dementia N Nasal polyps N Asthma Y Sleep Disorder Y GERD/Reflux N High Cholesterol Y Liver Disease N Headaches N Fibromyalgia N Hypertension N Speech Delay N Kidney Disease N Gynecological HistoryNo gynecological history recorded. Obstetrics History GPAL:G 0 P 0 0 0 0 Past Encounters Encounter ID Performer Location Encounter Start Date Encounter Closed Date Diagnosis/Indication Diagnosis SNOMED-CT Code Diagnosis ICD10 Code Diagnosis Note [id number] FER ZAVALA MD [facility] [address] [address] 09/19/2024 10:02:24 09/19/2024 11:03:03 Allergic rhinitis caused by pollen 94520951 J30.1 Chronic sinusitis 705334 00 J32.9 [id number] SHRAVAN JUDD MD [facility] [address] [address] 11/04/2024 14:44:00 11/04/2024 15:08:34 Allergic rhinitis caused by pollen 43448078 J30.1 Atypical facial pain [id number] [facility] [address] [place] [address] 11/12/2024 08:46:13 11/12/2024 10:45:34 Allergic rhinitis caused by pollen 16796888 J30.1 [id number] FER ZAVALA MD [facility] [address] [address] 12/31/2024 08:26:16 12/31/2024 08:52:00 Obstructive sleep apnea syndrome 31587393 G47.33 Posterior rhinorrhea 758 55024 R09.82 Chronic rhinitis 4497145 6 J31.0 Health Concerns Section Related Observation LastModified by Organization Detai ls LastModified Time None Recorded Concern Status LastModified by Organization Details LastModified Time None Recorded Advance Directives Directive None Recorded Payers Encounter Date Sequence Insurance Name Policy Number Policy Mei Covered Member ID Mei Member ID Guarantor Name 09/19/2024 1 [place] [employer] Lynnette Mcgill [id number] Lynnette Mcgill 09/19/2024 2 [place] [facility] Lynnette Mcgill [id number] Lynnette Mcgill 11/04/2024 1 [place] [employer] Lynnette [place] [id number] Lynnette Ulrich [place] 11/04/2024 2 [place] [facility] [place] Lynnette Ulrich Bod[place] [id number] Lynnette T Bodiford 11/12/2024 1 MED[place] B[place]: [facility] Lynnette Ulrich Bod[place]ord [id number] Lynnette T Bodiford 11/12/2024 2 [place] [facility] [place] Lynnette Ulrich [place] [id number] Lynnette T Bodiford 12/31/2024 1 [place]: [facility] Lynnette Ulrich Bod[place]ord [id number] Lynnette Ulrich [place] 12/31/2024 2 [place] [facility] [place] Lynnette Ulrich Bod[place]ord [id number] Lynnette Ulrich [place] Notes Date Note Type Note Provider Name and Address Organization Details Recorded Time 09/19/2024 text/html 63 year old kalin linares presents reporting left sided nasal congestion [...] bad left upper molars. FER RIVERA MD [address] [place] [address], [phone], [facility] 09/19/2024 12:45:42 11/04/2024 text/html 63 year old kalin linares presents to review CT sinus which was performed at [facility] 10/07/24. She reports that her left maxillary pain is improving. She has allergy tested scheduled. SHRAVAN JUDD MD [address] [place] [address],[address], [phone], [facility] 11/06/2024 08:24:49 11/12/2024 text/html Pt presents for allergy testing. Due to elevated bp due to holding her beta ghislaine and other 3 meds and having poor pfts Dr. Hernandez wanted pt to have RAST and to follow up with Dr. Rivera to figure out next steps SHRUTI MI [address] [facility], [phone], [facility] 11/12/2024 10:45:27 12/31/2024 text/html Patient with persistent sensation of postnasal drainage refractory to fluticasone and azelastine. CT of sinuses was negative. Allergy testing via RAST was basically negative with the IgE total being 2 and trace positivity to bluegrass birch and ragweed. She feels the drainage is coming from her ears down into the throat. Using CPAP -6hours per night FER RIVERA MD [address] [place] [address], [phone], [facility] 12/31/2024 08:51:29 OBGyn Episode No OBEpisode recorded.
--- OUTSIDE RECORDS SUMMARY | 2025-01-16 14:20 | XMS_ITS | Patient Health Record ---
Author Organization Yovanny Noel III, MD Address [address] [address] Care Team Providers Care Spanish Medical Interpreter Name Role Phone Yovanny Neol Primary Care Provider Allergies Allergen (clinical drug ingredient) Drug/Non Drug Allergy documented on EMR Reaction Allergy Type Onset Date Status No Known Drug Allergy Unknown Drug Allergy Active Results Component Value Reference Range Notes URINE DIP STICK Reviewed date:02/04/2024 11:49:50 AM Interpretation: Performing Lab: Notes/Report: SG 1.020 1.005 - 1.025 pH 5.0 5.0 - 9.0 ILIA 70 Negative - NIT Negative Negative - PRO 15 Negative - Trace GLU Negative Negative - KET 5 Negative - UBG 0.2 0.1 - 1.8 ERNESTINA Negative 0.2 - 1.3 BLD Negative Negative - URINE DIP STICK Reviewed date:10/02/2024 10:22:55 AM Interpretation: Performing Lab: Notes/Report: SG 1.010 1.005 - 1.025 pH 6.0 5.0 - 9.0 ILIA 70 Negative - NIT Negative Negative - PRO 15 Negative - Trace GLU Negative Negative - KET Negative Negative - UBG 0.2 0.1 - 1.8 ERNESTINA Negative 0.2 - 1.3 BLD Negative Negative - Menstrating No Complete Blood Count no Diff Reviewed date:04/22/2024 05:03:47 PM Interpretation: Performing Lab:[facility], [address] [place] [phone] Notes/Report: White Blood Count 5.3 4.8-10.8 X10*3/uL Red Blood Count 4.17 4.20-5.50 X10*6/uL Hemoglobin 10.8 12.0-16.0 g/dl Hematocrit 34.3 37.0-47.0 % Mean Corpuscular Volume 82.3 80.0-98.0 fL Mean Corpuscular Hemoglobin 25.9 27.0-33.0 pg Mean Corpuscular HGB Conc 31.5 31.0-35.0 g/dl Red Cell Distribution Width 13.0 11.0-16.0 % Platelet Count 218 160-400 X10*3/uL Mean Platelet Volume 10.3 9.4-12.3 fL NRBC Pct Auto 0.0 0.0-0.2 /100WBC NRBC Abs Auto 0.000 0.0-0.012 X10*3/uL Basic Metabolic Panel Reviewed date:04/22/2024 05:03:47 PM Interpretation: Performing Lab:[facility], [address] [place] [phone] Notes/Report: Sodium 143 135-145 mmol/L Potassium 4.0 3.3-5.1 mmol/L Chloride 115 96-108 mmol/L Carbon Dioxide 20 22-29 mmol/L Anion Gap 12 12-20 Blood Urea Nitrogen 27 9-16 mg/dL Creatinine 1.40 0.5-1.4 mg/dL Estimated Glomerular Filt Rate 38 NOTE: For -Djibout[place] individuals, multiply the result by 1.210. Chronic Kidney Disease: Estimated GFR < 60 mL/min/1.73m2 Severe Kidney Disease: Estimated GFR < 15 mL/min/1.73m2 Glucose Random 85 60-115 mg/dL Calcium 10.0 8.4-10.2 mg/dL MAMMOGRAM DIGITAL BILATERAL SCREEN Reviewed date:10/07/2024 04:03:16 PM Interpretation:undefined Performing Lab: Notes/Report: undefined Urinalysis and Microscopic Reviewed date:05/29/2024 12:31:16 PM Interpretation: Performing Lab:[facility], [address] [place] [phone] Notes/Report: Color Urine Yellow Appearance Urine Turbid PH 5.5 5.0-9.0 Glucose Urine UA Negative Negative mg/dL Urine Blood Negative Negative Specific [place] - Urine 1.025 1.005-1.025 Urine Protein Negative Neg-Trace mg/dL Urine Ketones Negative Negative mg/dL Nitrite Urine Negative Negative Leukocyte Esterase Urine Moderate (2+) Negative RBC Urine 0-2 0-2 /HPF WBC Urine 21-50 0-5 /HPF Squamous Epithelial Cell Urine >20 0-2 /HPF Bacteria Urine 4+ None Seen Hyaline Casts Urine 3-5 0-2 /LPF Electrolytes Reviewed date:05/29/2024 12:31:16 PM Interpretation: Performing Lab:[facility], [address] [place] [phone] Notes/Report: Sodium 142 135-145 mmol/L Potassium 4.3 3.3-5.1 mmol/L Chloride 113 96-108 mmol/L Carbon Dioxide 24 22-29 mmol/L Anion Gap 9 12-20 Blood Urea Nitrogen Reviewed date:05/29/2024 12:31:16 PM Interpretation: Performing Lab:[facility], [address] [place] [phone] Notes/Report: Blood Urea Nitrogen 26 9-16 mg/dL Creatinine Reviewed date:05/29/2024 12:31:16 PM Interpretation: Performing Lab:[facility], [address] [place] [phone] Notes/Report: Creatinine 1.10 0.5-1.4 mg/dL Estimated Glomerular Filt Rate 50 NOTE: For -Djiboutian individuals, multiply the result by 1.210. Chronic Kidney Disease: Estimated GFR < 60 mL/min/1.73m2 Severe Kidney Disease: Estimated GFR < 15 mL/min/1.73m2 Calcium Reviewed date:05/29/2024 12:31:16 PM Interpretation: Performing Lab:[facility], [address] [place] [phone] Notes/Report: Calcium 9.8 8.4-10.2 mg/dL IRON PROFILE Reviewed date:05/29/2024 12:31:16 PM Interpretation: Performing Lab:[facility], [address] [place] [phone] Notes/Report: Iron 95 30-160 mcg/dL Total Iron Binding Capacity 241 228-428 mcg/dL Percent Iron Saturation 39 15-50 % Unsaturated Iron Binding 146 Ferritin Reviewed date:05/29/2024 12:31:16 PM Interpretation: Performing Lab:[facility], [address] [place] [phone] Notes/Report: Ferritin 182 10-250 ng/mL Lactate Dehydrogenase Reviewed date:05/29/2024 12:31:16 PM Interpretation: Performing Lab:[facility], [address] [place] [phone] Notes/Report: Lactate Dehydrogenase 183 122-220 U/L Vitamin B12 and Folate Reviewed date:05/29/2024 12:31:16 PM Interpretation: Performing Lab:[facility], [address] [place] [phone] Notes/Report: Vitamin B12 530 200-900 pg/mL NORMAL 200-900 PG/ML INDETERMINATE 160-199 PG/ML DEFICIENT < 160 PG/ML Folate 6.1 > or = 4.0 ng/mL Reference Values: > or = 4.0 ng/mL < 4.0 ng/mL suggests folate deficiency Methotrexate, aminopterin and folinic acid (leucovorin) are chemotherapeutic agents whose molecular structures are similar to folate; therefore, the [employer] folate assay cannot be used for patients using these drugs. Protein Creatinine Ratio, Ur Reviewed date:05/29/2024 12:31:16 PM Interpretation: Performing Lab:[facility], [address] [place] [phone] Notes/Report: Creatinine Urine 165.24 Total Protein Urine Random 10 <12 mg/dL Protein/Creatinine Ratio, Ur 0.06 <0.2 The spot urine protein:creatinine ratio may increase to 0.3 during normal . Immunofixation Pnl, Serum Reviewed date:06/26/2024 06:56:19 AM Interpretation: Performing Lab:[facility], [address] [place] [phone] Notes/Report: IgG 0398 510-6628 mg/dL IgA 225 70-320 mg/dL IgM 83 50-300 mg/dL THIS TEST WAS PERFORMED AT: [facility] [address] [place] [phone] ADELE SOLOMON MD Immunofixation Interpretation SEE NOTE Normal pattern. No monoclonal proteins detected. Complement C3 Reviewed date:05/29/2024 12:31:16 PM Interpretation: Performing Lab:[facility], [address] [place] [phone] Notes/Report: Complement C3 126 83-193 mg/dL THIS TEST WAS PERFORMED AT: [facility] [address] [place] [phone] ADELE SOLOMON MD Complement C4 Reviewed date:05/29/2024 12:31:16 PM Interpretation: Performing Lab:[facility], [address] [place] [phone] Notes/Report: Complement C4 31 15-57 mg/dL THIS TEST WAS PERFORMED AT: [facility] [address] [place] [phone] ADELE SOLOMON MD US renal doppler Reviewed date:06/26/2024 06:56:19 AM Interpretation: Performing Lab: Notes/Report: [address] [place] [address] Ultrasound Report Signed Patient: Lynnette Mcgill MR#: [id number] : 1960 Acct:[id number] Age/Sex: 63 / F ADM Date: 06/25/24 Loc: HO.US Attending Dr: Da Raya MD Ordering Physician: Da Raya MD Date of Service: 06/25/24 Procedure(s): US renal doppler Accession Number(s): [id number] cc: Yovanny Noel MD; Da Raya MD EXAMINATION: US RETROPERITONEAL LIMITED (RENAL ONLY) CLINICAL INFORMATION: Acute renal failure. COMPARISON: 12/30/2020 TECHNIQUE: Standard renal ultrasound bilaterally with color and duplex Doppler. FINDINGS: RIGHT KIDNEY: 10.3 x 5.0 x 5.6 cm (SAG x AP x TRV). The kidney is normal in size, contour, and echogenicity. Renal cortical thickness is normal. No calculi or focal parenchymal lesions. No hydronephrosis. Duplex Doppler interrogation of the renal arteries bilaterally and calculation resistive indices demonstrate normal parameters bilaterally. Early systolic peaks appear symmetrical and normal bilaterally. Please refer to the technologist's note for details. LEFT KIDNEY: 10.1 x 5.2 x 5.7 cm (SAG x AP x TRV). The kidney is normal in size, contour, and echogenicity. Renal cortical thickness is normal. No calculi or focal parenchymal lesions. No hydronephrosis. Normal renal artery velocities and resistive indices as above. US/US renal doppler IMPRESSION: No hydronephrosis. No sonographic evidence for any hemodynamically significant renal artery stenosis. Electronically signed by: Denny Eddy MD 06/25/2024 02:14 PM EDT Dictated By: Denny Eddy MD Signed By: <Electronically signed by Denny Eddy MD in OV> 06/25/24 1414 DD/ 1009 TD/TT: 06/25/24 1030 [employer]: [place] [address] Ultrasound Report Signed Patient: Lynnette Mcgill MR#: [id number] : 1960 Acct:[id number] Age/Sex: 63 / F ADM Date: 06/25/24 Loc: .US Attending Dr: Da Raya MD Ordering Physician: Da Raya MD Date of Service: 06/25/24 Procedure(s): US soo al doppler Accession Number(s): [id number] cc: Yovanny Noel MD; Da Raya MD EXAMINATION: US RETROPERITONEAL LIMITED (RENAL ONLY) CLINICAL INFORMATION: Acute renal failure. COMPARISON: 12/30/2020 TECHNIQUE: Standard renal ultrasound bilaterally with color and duplex Doppler. FINDINGS: RIGHT KIDNEY: 10.3 x 5.0 x 5.6 cm (SAG x AP x TRV). The kidney is normal in size, contour, and echogenicity. Renal cortical thickness is normal. No calculi o r focal parenchymal lesions. No hydronephrosis. Duplex Doppler interrogation of the renal arteries bilaterally and calculation resistiv e indices demonstrate normal parameters bilaterally. Early systolic peaks appear symmetrical and normal bilaterally. Please refer to the technologist's note for details. LEFT KIDNEY: 10.1 x 5.2 x 5.7 cm (SAG x AP x TRV). The kidney is normal in size, contour, an d echogenicity. Renal cortical thickness is normal. No calculi or focal parenchymal lesions. No hydronephrosis. Normal renal artery velocities and resistive indices as above. US/US renal doppler IMPRESSION: No hydronephrosis. N o sonographic evidence for any hemodynamically significant renal artery stenosis. Electronically earline d by: Denny Eddy MD 06/25/2024 02:14 PM EDT RP Dictated By: Harry Eddy MD Signed By: <Electronically signed by Denny Eddy MD in OV> 06/25/24 1414 DD/ 1009 TD/TT: 06/25/24 1030 [employer]: US renal BI Reviewed date:06/26/2024 06:56:19 AM Interpretation: Performing Lab: Notes/Report: [address] [address] Ultrasound Report Signed Patient: Lynnette Mcgill MR#: [id number] : 1960 Acct:[id number] Age/Sex: 63 / F ADM Date: 06/25/24 Loc: HO.US Attending Dr: Da Raya MD Ordering Physician: Da Raya MD Date of Service: 06/25/24 Procedure(s): US renal BI Accession Number(s): [id number] cc: Yovanny Noel MD; Da Raya MD EXAMINATION: US RETROPERITONEAL LIMITED (RENAL ONLY) CLINICAL INFORMATION: Acute renal failure. COMPARISON: 12/30/2020 TECHNIQUE: Standard renal ultrasound bilaterally with color and duplex Doppler. FINDINGS: RIGHT KIDNEY: 10.3 x 5.0 x 5.6 cm (SAG x AP x TRV). The kidney is normal in size, contour, and echogenicity. Renal cortical thickness is normal. No calculi or focal parenchymal lesions. No hydronephrosis. Duplex Doppler interrogation of the renal arteries bilaterally and calculation resistive indices demonstrate normal parameters bilaterally. Early systolic peaks appear symmetrical and normal bilaterally. Please refer to the technologist's note for details. LEFT KIDNEY: 10.1 x 5.2 x 5.7 cm (SAG x AP x TRV). The kidney is normal in size, contour, and echogenicity. Renal cortical thickness is normal. No calculi or focal parenchymal lesions. No hydronephrosis. Normal renal artery velocities and resistive indices as above. US/US renal BI IMPRESSION: No hydronephrosis. No sonographic evidence for any hemodynamically significant renal artery stenosis. Electronically signed by: Denny Eddy MD 06/25/2024 02:14 PM EDT RP Dictated By: Denny Eddy MD Signed By: <Electronically signed by Denny Eddy MD in OV> 06/25/24 1414 DD/ 1005 TD/TT: 06/25/24 1030 [employer]: [place] [address] Ultrasound Report Signed Patient: Lynnette Mcgill MR#: [id number] : 1960 Acct:[id number] Age/Sex: 63 / F ADM Date: 06/25/24 Loc: .US Attending Dr: Da Raya MD Ordering Physician: Da Raya MD Date of Service: 06/25/24 Procedure(s): US soo al BI Accession Number(s): [id number] cc: Yovanny Noel MD; Da Raya MD EXAMINATION: US RETROPERITONEAL LIMITED (RENAL ONLY) CLINICAL INFORMATION: Acute renal failure. COMPARISON: 12/30/2020 TECHNIQUE: Standard renal ultrasound bilaterally with color and duplex Doppler. FINDINGS: RIGHT KIDNEY: 10.3 x 5.0 x 5.6 cm (SAG x AP x TRV). The kidney is normal in size, contour, and echogenicity. Renal cortical thickness is normal. No calculi o r focal parenchymal lesions. No hydronephrosis. Duplex Doppler interrogation of the renal arteries bilaterally and calculation resistiv e indices demonstrate normal parameters bilaterally. Early systolic peaks appear symmetrical and normal bilaterally. Please refer to the technologist's note for details. LEFT KIDNEY: 10.1 x 5.2 x 5.7 cm (SAG x AP x TRV). The kidney is normal in size, contour, an d echogenicity. Renal cortical thickness is normal. No calculi or focal parenchymal lesions. No hydronephrosis. Normal renal artery velocities and resistive indices as above. US/US renal BI IMPRESSION: No hydronephrosis. N o sonographic evidence for any hemodynamically significant renal artery stenosis. Electronically earline d by: Denny Eddy MD 06/25/2024 02:14 PM EDT RP Dictated By: Harry Eddy MD Signed By: <Electronically signed by Denny Eddy MD in OV> 06/25/24 1414 DD/ 1005 TD/TT: 06/25/24 1030 [employer]: [place] Urinalysis and Microscopic Reviewed date:07/14/2024 07:05:27 AM Interpretation: Performing Lab:[facility], [address] [place] [phone] Notes/Report: Color Urine Yellow Appearance Urine Clear PH 6.5 5.0-9.0 Glucose Urine UA Negative Negative mg/dL Urine Blood Negative Negative Specific [place] - Urine 1.020 1.005-1.025 Urine Protein Negative Neg-Trace mg/dL Urine Ketones Negative Negative mg/dL Nitrite Urine Negative Negative Leukocyte Esterase Urine Large (3+) Negative RBC Urine 0-2 0-2 /HPF WBC Urine 6-10 0-5 /HPF Squamous Epithelial Cell Urine 6-10 0-2 /HPF Bacteria Urine Trace None Seen Hyaline Casts Urine 3-5 0-2 /LPF Electrolytes Reviewed date:07/14/2024 07:05:27 AM Interpretation: Performing Lab:[facility], [address] [place] [phone] Notes/Report: Sodium 142 135-145 mmol/L Potassium 4.1 3.3-5.1 mmol/L Chloride 113 96-108 mmol/L Carbon Dioxide 22 22-29 mmol/L Anion Gap 11 12-20 Blood Urea Nitrogen Reviewed date:07/14/2024 07:05:27 AM Interpretation: Performing Lab:[facility], [address] [place] [phone] Notes/Report: Blood Urea Nitrogen 29 9-16 mg/dL Creatinine Reviewed date:07/14/2024 07:05:27 AM Interpretation: Performing Lab:[facility], [address] [place] [phone] Notes/Report: Creatinine 1.19 0.5-1.4 mg/dL Estimated Glomerular Filt Rate 46 NOTE: For -[place]jiboutian individuals, multiply the result by 1.210. Chronic Kidney Disease: Estimated GFR < 60 mL/min/1.73m2 Severe Kidney Disease: Estimated GFR < 15 mL/min/1.73m2 Calcium Reviewed date:07/14/2024 07:05:27 AM Interpretation: Performing Lab:[facility], [address] [place] [phone] Notes/Report: Calcium 10.1 8.4-10.2 mg/dL TSH reflex Free T4 Reviewed date:07/14/2024 07:05:27 AM Interpretation: Performing Lab:[facility], [address] [place] [phone] Notes/Report: TSH reflex Free T4 0.70 0.32-4.0 uIU/mL Aldosterone Reviewed date:07/27/2024 06:33:19 AM Interpretation: Performing Lab:[facility], [address] [place] [phone] Notes/Report: Aldosterone TNP Renin Reviewed date:07/20/2024 08:40:23 AM Interpretation: Performing Lab:[facility], [address] [place] [phone] Notes/Report: Renin 0.28 0.25-5.82 ng/mL/h This test was developed and its analytical performance characteristics have been determined by [employer] [place], [place]. It has not been cleared or approved by the U.S. Food and Drug Administration. This assay has been validated pursuant to the CLIA regulations and is used for clinical purposes. THIS TEST WAS PERFORMED AT: [employer]/[address] DENNY DOMINGUEZ MD,PHD Aldost/Renin Reviewed date:07/27/2024 06:33:19 AM Interpretation: Performing Lab:[facility], [address] [place] [phone] Notes/Report: Aldosterone 7 see note ng/dL Unable to flag abnormal result(s), please refer to reference range(s) below: Adult Reference Ranges for Aldosterone, LC/MS/MS: Upright 8:00 - 10:00 am < or = 28 ng/dL Upright 4:00 - 6:00 pm < or = 21 ng/dL Supine 8:00 - 10:00 am 3 - 16 ng/dL THIS TEST WAS PERFORMED AT: [employer]/[address] DENNY DOMINGUEZ MD,PHD Plasma Renin Activity 0.33 0.25-5.82 ng/mL/h Aldosterone/Renin Ratio 21.2 0.9-28.9 Ratio This test was developed and its analytical performance characteristics have been determined by [employer] [place], [place]. It has not been cleared or approved by the U.S. Food and Drug Administration. This assay has been validated pursuant to the CLIA regulations and is used for clinical purposes. THIS TEST WAS PERFORMED AT: [employer]/[address] DENNY DOMINGUEZ MD,PHD Metanephrines, Plasma Reviewed date:07/16/2024 03:36:49 PM Interpretation: Performing Lab:[facility], [address] [place] [phone] Notes/Report: Metanephrine, Free <25 <=57 pg/mL This test was developed and its analytical performance characteristics have been determined by [employer] [place], [place]. It has not been cleared or approved by the U.S. Food and Drug Administration. This assay has been validated pursuant to the CLIA regulations and is used for clinical purposes. Normetanephrines, Free 158 <=148 pg/mL This test was developed and its analytical performance characteristics have been determined by [employer] [place], [place]. It has not been cleared or approved by the U.S. Food and Drug Administration. This assay has been validated pursuant to the CLIA regulations and is used for clinical purposes. Total Metanephrine, Free 158 <=205 pg/mL For additional information, please refer to http://education.[employer]/faq/MetF ractFree (This link is being provided for informational/educatio informational/education al purposes only.) Elevations >4-fold upper reference range: strongly suggestive of a pheochromocytoma(1). Elevations >1- 4-fold upper reference range: significant but not diagnostic, may be due to medications or stress. Suggest running 24 hr urine fractionated metanephrines and/or serum Chromagranin A for confirmation. Reference: (1)Tory Spicer et al, Plasma Chromogranin A or Urine Fractionated Metanephrines Follow-Up Testing Improves the Diagnostic Accuracy of Plasma Fractionated Metanephrines for Pheochromocytoma. The Journal of Clinical Endocrinology # Metabolism 93(1), 91-95, 2008. This test was developed and its analytical performance characteristics have been determined by [employer] [place], [place]. It has not been cleared or approved by the U.S. Food and Drug Administration. This assay has been validated pursuant to the CLIA regulations and is used for clinical purposes. THIS TEST WAS PERFORMED AT: [employer]/[address] [phone] DENNY DOMINGUEZ MD,PHD Protein Creatinine Ratio, Ur Reviewed date:07/14/2024 07:05:27 AM Interpretation: Performing Lab:[facility], [address] [place] [phone] Notes/Report: Creatinine Urine 170.09 Total Protein Urine Random 9 <12 mg/dL Protein/Creatinine Ratio, Ur 0.05 <0.2 The spot urine protein:creatinine ratio may increase to 0.3 during normal . Cortisol Random Reviewed date:07/14/2024 07:05:27 AM Interpretation: Performing Lab:[facility], [address] [place] [phone] Notes/Report: Cortisol Random 9.6 Reference Range*: Before 10 am 6.2-19.4 ug/dL After 5 pm 2.3-11.9 ug/dL *Please interpret above results accordingly. This test was performed using the Weiss chemiluminescent method. Values obtained from different assay methods cannot be used interchangeably. Patients receiving fludrocortisone, prednisolone or prednisone may show artificially elevated cortisol values due to cross-reactivity. Complete Blood Count Auto Di ff Reviewed date:07/27/2024 06:33:19 AM Interpretation: Performing Lab:[facility], [address] [place] [phone] Notes/Report: White Blood Count 5.6 4.8-10.8 X10*3/uL Red Blood Count 4.46 4.20-5.50 X10*6/uL Hemoglobin 11.4 12.0-16.0 g/dl Hematocrit 36.8 37.0-47.0 % Mean Corpuscular Volume 82.5 80.0-98.0 fL Mean Corpuscular Hemoglobin 25.6 27.0-33.0 pg Mean Corpuscular HGB Conc 31.0 31.0-35.0 g/dl Red Cell Distribution Width 13.5 11.0-16.0 % Platelet Count 223 160-400 X10*3/uL Mean Platelet Volume 10.6 9.4-12.3 fL Neutrophils Percent Auto 44.6 45-73 % Imm Gran Pct Auto 0.4 0.0-0.4 % Lymphocytes Percent Auto 41.5 20-40 % Monocytes Percent Auto 8.3 2-11 % Eosinophils Percent Auto 3.6 0-4 % Basophils Percent Auto 1.6 0-2 % NRBC Pct Auto 0.0 0.0-0.2 /100WBC Neutrophils Absolute Auto 2.5 2.0-8.3 x10*3/uL Imm Gran Abs Auto 0.02 0.00-0.03 X10*3/uL Lymphocytes Absolute Auto 2.3 1.2-4.9 X10*3/uL Monocytes Absolute Auto 0.5 0.1-1.2 X10*3/uL Eosinophils Absolute Auto 0.2 0.0-0.4 X10*3/uL Basophils Absolute Auto 0.1 0.0-0.2 X10*3/uL NRBC Abs Auto 0.000 0.0-0.012 X10*3/uL Comprehensive Met. Panel Reviewed date:07/27/2024 06:33:19 AM Interpretation: Performing Lab:[facility], [address] [place] [phone] Notes/Report: Sodium 143 135-145 mmol/L Potassium 4.1 3.3-5.1 mmol/L Chloride 112 96-108 mmol/L Carbon Dioxide 25 22-29 mmol/L Anion Gap 10 12-20 Blood Urea Nitrogen 29 9-16 mg/dL Creatinine 1.42 0.5-1.4 mg/dL Estimated Glomerular Filt Rate 37 NOTE: For -[place]ib[place] individuals, multiply the result by 1.210. Chronic Kidney Disease: Estimated GFR < 60 mL/min/1.73m2 Severe Kidney Disease: Estimated GFR < 15 mL/min/1.73m2 Glucose Random 90 60-115 mg/dL Calcium 9.8 8.4-10.2 mg/dL Bilirubin Total 0.4 0.0-1.0 mg/dL Aspartate Amino Transferase 18 5-31 U/L Alanine Aminotransferase 14 0-31 U/L Total Protein 7.0 6.5-8.0 g/dL Albumin Level 4.2 3.5-5.0 g/dL Alkaline Phosphatase 88 39-117 U/L Complete Blood Count no Diff Reviewed date:12/27/2024 08:01:52 AM Interpretation: Performing Lab:[facility], [address] [place] [phone] Notes/Report: White Blood Count 5.0 4.8-10.8 X10*3/uL Red Blood Count 4.10 4.20-5.50 X10*6/uL Hemoglobin 11.0 12.0-16.0 g/dl Hematocrit 34.2 37.0-47.0 % Mean Corpuscular Volume 83.4 80.0-98.0 fL Mean Corpuscular Hemoglobin 26.8 27.0-33.0 pg Mean Corpuscular HGB Conc 32.2 31.0-35.0 g/dl Red Cell Distribution Width 12.6 11.0-16.0 % Platelet Count 214 160-400 X10*3/uL Mean Platelet Volume 10.8 9.4-12.3 fL NRBC Pct Auto 0.0 0.0-0.2 /100WBC NRBC Abs Auto 0.000 0.0-0.012 X10*3/uL Basic Metabolic Panel Reviewed date:12/27/2024 08:01:52 AM Interpretation: Performing Lab:[facility], [address] [place] [phone] Notes/Report: Sodium 141 135-145 mmol/L Potassium 3.8 3.3-5.1 mmol/L Chloride 114 96-108 mmol/L Carbon Dioxide 20 22-29 mmol/L Anion Gap 11 12-20 Blood Urea Nitrogen 32 9-16 mg/dL Creatinine 1.28 0.5-1.4 mg/dL Estimated Glomerular Filt Rate 42 Chronic Kidney Disease: Estimated GFR < 60 mL/min/1.73m2 Severe Kidney Disease: Estimated GFR < 15 mL/min/1.73m2 Glucose Random 80 60-115 mg/dL Calcium 9.8 8.4-10.2 mg/dL Troponin-I High Sensitivity Reviewed date:12/27/2024 08:01:52 AM Interpretation: Performing Lab:[facility], [address] [place] [phone] Notes/Report: Troponin-I High Sensitivity < 2.7 <3.5-17.0 ng/L The Weiss high sensitivity Troponin-I results should be used in conjunction with other diagnostic information such as ECG, clinical observations and information, and patient symptoms to aid in the diagnosis of ND. B Type Natriuretic Peptide Reviewed date:12/27/2024 08:01:52 AM Interpretation: Performing Lab:[facility], [address] [place] [id number] Notes/Report: B Type Natriuretic Peptide 64 <100 pg/mL Reason For Referral Reason Consult and treat Ab d/Back Pain Continued Pancreatitis Diagnosis 1 Pancreatitis (577.0) Referral Organization Yovanny Noel III, MD Referring Provider First Name Yovanny Referring Provider Last Name Sadie Referring Provider Speciality Internal M edicine Referred Provider LETICIA MARIO Referred Provider Specialty Gastroentero logy General Notes Marixa Smith 2023 09:46:07 AM EDT > Faxed with Referral, progress note, mercy discharge and Ct scan. Referral Priority Routine Referral Appointment Date 03/06/2024 Reason Consult and Treat Post Nasal Drip Diagnosis 1 Rhinitis (J31.0) Referral Organization Yovanny Noel III, MD Referring Provider First Name Yovanny Referring Provider Last Name Sadie Referring Provider Speciality Internal edicine Referred Provider [facility], [facility] Referred Provider Specialty Otolaryngolo gy General Notes Marixa Smith 2023 01:13:34 PM EDT > Referral Faxed with progress noteSarah Amber 06/17/2024 02:11:33 PM EDT > Patient has not been scheduled at this time but is in the system, Marixa Zimmerman 07/23/2024 02:14:59 PM > urgent referral was faxed over with most recent progress note and cover sheet, Marixa Zimmerman 07/30/2024 09:48:54 AM > Called and spoke with the office they scheduled her for 09/19/24 @ 10:30am with Nichelle in the [place] office. Patient called and notified Referral Priority Routine Referral Appointment Date 09/19/2024 Reason Consult and Treat Post Nasal Drip Ear Discomfort Diagnosis 1 Chronic sinusitis, u nspecified (J32.9) Referral Organization Yovanny Noel III, MD Referring Provider First Name Yovanny Referring Provider Last Name Sadie Referring Provider Speciality Internal edicine Referred Provider CHARISSE HERMOSILLO Referred Provider Specialty Otolaryngolo gy General Notes Marixa Smith 06/24 03:32:37 PM >Patient was given Dr. Hermosillo's phone number and address. Patient was informed they want the patient to call and schedule the appointment Referral Priority Routine Reason increased pain down right leg even at rest Diagnosis 1 Lumbar radiculopathy (M54.16) Referral Organization Yovanny Noel III, MD Referring Provider First Name Yovanny Referring Provider Last Name Sadie Referring Provider Speciality Internal edicine Referred Provider [facility], [place] Referred Provider Specialty Physical Med icine General Notes Leatha Wood CMA 10/08 10:42:43 AM >Patient to have MRI spine done at [facility] after that result comes in ref patient back to [facility] to discuss possible spinal cord stimulator insertion, Leatha Wood CMA 10/15/2024 02:34:17 PM >ref/demo/progress note and MRI report faxed to [facility] at regular fax number and fax # [phone] they will call patient to set up appt, Leatha Wood KRISTIN 10/21/2024 09:59:28 AM > I called spoke to patient she stated she has appt at [facility] for 11/19/2024 Referral Priority Routine Referral Appointment Date 11/19/2024 Reason Evaluate and Treat Constipation not responding to anything Bowel movements once a week Diagnosis 1 Constipation (K59.00 ) Referral Organization Yovanny Noel III, MD Referring Provider First Name Yovanny Referring Provider Last Name Sadie Referring Provider Speciality Internal M edicine Referred Provider LETICIA MARIO Referred Provider Specialty Gastroentero logy General Notes DMarixa 01/05/2025 10:25:50 AM > Referral and progress note Faxed Referral Priority Routine Medications Medication SIG (Take, Route, Frequency, Duration) Notes Start Date End Date Status K-Tab 10 MEQ 1 tablet with food Orally Once a day 02/15/2021 Active Furosemide 40 MG 1 tablet Orally Once a day 02/15/2021 Active Simvastatin 40 MG Take 1 tablet by paras th in the evening Orally Once a day Active Gabapentin 300 MG 1 capsule Orally thr ee times a day 01/23/2023 Active Pregabalin 50 MG 1 capsule Orally Twi ce a day Active Cyclobenzaprine HCl 10 MG as directed Or ally three times a day 08/15/2022 Active Meloxicam 15 MG Take 1 tablet by paras th once daily Active Benzonatate 200 MG 1 capsule as needed Orally Three times a day 06/24/2024 Active Polyethylene Glycol 3350 17 GM 1 packet mixed with 8 ounces of fluid Orally Once a day Active Lisinopril 40 MG 1 tablet Orally Once a day 11/12/2023 Active amLODIPine Besylate 10 MG 1 tablet Orall y Once a day Active Metoprolol Tartrate 100 MG Take 1 tablet by mouth twice daily with food Active guaiFENesin-Codeine 100-10 MG/5ML 10 mL as needed Orally every 6 hrs 07/22/2024 Active Guaiatussin AC 100-10 MG/5ML 10 mL as needed Orally every 6 hrs As needed 07/22/2024 Active Loratadine 10 MG 1 tablet Orally Once a day 07/22/2024 Active Escitalopram Oxalate 20 MG 1 tablet Oral ly Once a day 12/29/2021 Active Senna Laxative 8.6 MG 1 tablet Orally tw ice a day 12/29/2024 Active Flonase 50 MCG/ACT 1 spray in each nost ril Nasally Once a day 09/28/2023 Active dexAMETHasone 2 MG 1 tablet Orally ever y 12 hrs 10/21/2024 Active Esomeprazole Magnesium 40 MG Take 1 caps ule by mouth once daily Active Clopidogrel Bisulfate 75 MG TAKE 1 TABLE T BY MOUTH ONCE DAILY Orally Once a day Active Pantoprazole Sodium 20 MG 1 tablet 1/2 t o 1 hour before morning meal Orally Once a day 10/27/2024 Active Lisinopril 20MG TAKE ONE TABLET BY MOUTH EVERY DAY Active Montelukast Sodium 10 MG 1 tablet in the evening Orally Once a day Active Ibuprofen 800 MG 1 tablet Orally Thre e times a day 07/28/2016 Active Combivent 18-103 MCG/ACT 2 puffs Inhalat ion Six times a day Active Advair Diskus 500-50 MCG/DOSE 1 puff Inh alation every 12 hrs Active hydrALAZINE HCl 50 MG 1 tablet with food Orally Four times a day Active Social History Tobacco Use: Social History [...] Additional Findings: Tobacco non-user Ex-cigaret te smoker AUDIT-C (Standard) Question Answer Notes Did you have a drink containing alcohol in the p ast year? No Points 0 Interpretation Negative Problems Problem Type SNOMED Code ICD Code Onset Dates Problem Status W/U Status Risk Notes Problem 2158697 Former smoker (Z87.891) Active confirmed She is highly motivated to not smoke. We have discussed a strategy for maintenance of abstinence in times of stress and illness. Problem 290758935 Asthma (J45.909) Active confirmed She has bbeen treated of asthma lately. There was no wheezing today. She was breathing room air comfortably. Current therapy was continued. Problem 502535604 Lumbar radiculopathy (M54.16) Active confirmed She has had an acute flare of low back pain. It is very similar to previous episodes. I have given her dexamethasone. She will continue with acetaminophen and rest. She declines to take any more injections or referral to pain management or physiatry. Problem Hyperlipidemia (56011860) Hyperlipidemia, unspecified (E78.5) Active confirmed Comprehensive blood work with a fasting lipid profile has been ordered. No change in her medications was made today. Problem 46228894 Essential hypertension (I10) Active confirmed Her blood pressure has come under control. She is being evaluated by nephrology with metanephrines. An ultrasound of her renal arteries did not show renal artery stenosis. We have discussed weight reduction and sodium restriction. Panorex. We will continue to reduce the blood pressure lifestyle modification. Problem 70541108 Other and unspecified hyperlipidemia (E78.5) Active confirmed Comprehensive blood work with a fasting lipid profile is being done periodically.The most recent total cholesterol was within normal limits. Problem CVA - Cerebrovascular accident (992109662) CVA (cerebral vascular accident) (I63.9) Active confirmed She continues t o have mild residual numbness in left side of her face but no muscle weakness is noted. She is able to conduct all of the activities of daily living. Her blood pressure is stable and her weight is dropping steadily. She is consuming a healthy, low-sodium diet. Problem 994213400 Nontoxic uninodular goiter (E04.1) Active confirmed Her thyroid i s not palpable today. She appears to be euthyroid. This problem will be followed closely. Problem 35348082 Vitamin D deficiency (E55.9) Active confirmed She is continuing on vitamin D supplementation. 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 Problem Constipation (10750046) Constipation (K59.00) Active confirmed I gave her instructions to consume one Bolla brands fairly with every breakfast. She will take Senokot twice a day. A followup was arranged. Problem 496343802 Morbid obesity (E66.01) Active confirmed She continues t o participate in the weight-loss program. She has lost 12 pounds since October 31, 2024. She will continue on her current therapies without change. She will be seen frequently to weigh her and form of support. Problem 87528355 Sleep apnea in adult (G47.30) Active confirmed She continues to use her CPAP. Problem 88679698 Reactive depression (F32.9) Active confirmed She has been taking citalopram only intermittently. She will continue to take it on a daily basis. Follow-up visit near future was scheduled. Problem Gastroesophageal reflux disease with esophagitis (disorder) (479462307) Gastro-esophage al reflux disease with esophagitis, without bleeding (K21.00) Active confirmed Her reflux symptoms are well controlled with medication. She is avoiding foods and medication that stimulate acid production. Problem 143018681 Stage 3b chronic kidney disease (N18.32) Active confirmed Her current GFR is 38. She is under the care of nephrology. Her hydrochlorothiaz lucie was stopped. Her blood pressure was reasonable today. Vital Signs Heart Rate 66 /min 12/29/2024 Temperature 97.3 degrees Fahrenheit 12/29/2024 Blood pressure diastolic 79 mm Hg 12/29/2024 Height 63 in 12/29/2024 Blood pressure systolic 143 mm Hg 12/29/2024 Weight 266 lbs 12/29/2024 BMI 47.11 kg/m2 12/29/2024 Encounters Encounter Location Date Provider Diagnosis Yovanny Noel III, MD [address] [place] [address] [place] [address] 01/14/2025 Yovanny Noel Asthma J45.909 Yovanny Noel III, MD [address] [place] [address] [place] [address] 01/18/2024 Yovanny Noel Asthma J45.909 ; Mor bid obesity E66.01 ; Lumbar radiculopathy M54.16 ; Other and unspecified hyperlipidemia E78.5 ; Nontoxic uninodular goiter E04.1 ; Former smoker Z87.891 ; Essential hypertension I10 ; Sleep apnea in adult G47.30 and Gastro-esophageal reflux disease with esophagitis, without bleeding K21.00 Yovanny Noel III, MD [address] [place] [address] [place] [address] 02/04/2024 Yovanny Noel Asthma J45.909 ; Acu te abdominal pain R10.9 ; Other and unspecified hyperlipidemia E78.5 ; Nontoxic uninodular goiter E04.1 ; Former smoker Z87.891 and Essential hypertension I10 Yovanny Noel III, MD [address] [place] [address] [place] [address] 02/11/2024 Yovanny Noel Asthma J45.909 ; Oth er and unspecified hyperlipidemia E78.5 ; Nontoxic uninodular goiter E04.1 ; Former smoker Z87.891 ; Essential hypertension I10 ; Morbid obesity E66.01 ; Lumbar radiculopathy M54.16 and Acute pancreatitis, unspecified complication status, unspecified pancreatitis type K85.90 Yovanny Noel III, MD [address] [place] [address] [place] [address] 04/22/2024 Yovanny Noel Asthma J45.909 ; Sim ple chronic bronchitis J41.0 ; Persistent cough R05.3 ; Former smoker Z87.891 ; Nontoxic uninodular goiter E04.1 ; Other and unspecified hyperlipidemia E78.5 and Essential hypertension I10 Yovanny Noel III, MD [address] [place] [address] [place] [address] 05/05/2024 Yovanny Noel Asthma J45.909 ; Essential hypertension I10 ; Morbid obesity E66.01 ; Nontoxic uninodular goiter E04.1 ; Former smoker Z87.891 ; Lumbar radiculopathy M54.16 and Stage 3b chronic kidney disease N18.32 Yovanny Noel III, MD [address] [place] [address] [place] [address] 05/20/2024 Yovanny Noel Asthma J45.909 ; Oth er and unspecified hyperlipidemia E78.5 ; Nontoxic uninodular goiter E04.1 ; Former smoker Z87.891 ; Essential hypertension I10 ; Reactive depression F32.9 ; Sleep apnea in adult G47.30 ; Gastro-esophageal reflux disease with esophagitis, without bleeding K21.00 and Morbid obesity E66.01 Yovanny Noel III, MD [address] [place] [address] [place] [address] 06/12/2024 Yovanny Noel Asthma J45.909 ; Oth er and unspecified hyperlipidemia E78.5 ; Essential hypertension I10 ; Morbid obesity E66.01 ; Lumbar radiculopathy M54.16 ; Reactive depression F32.9 ; CVA (cerebral vascular accident) I63.9 and Nontoxic uninodular goiter E04.1 Yovanny Noel III, MD [address] [place] [address] [place] [address] 06/24/2024 Yovanny Noel Asthma J45.909 ; Postnasal drip R09.82 ; Other and unspecified hyperlipidemia E78.5 ; Former smoker Z87.891 ; Essential hypertension I10 and Morbid obesity E66.01 Yovanny Noel III, MD [address] [place] [address] [place] [address] 07/15/2024 Yovanny Noel Otitis of right ear H66.91 ; Other and unspecified hyperlipidemia E78.5 ; Nontoxic uninodular goiter E04.1 ; Essential hypertension I10 ; Asthma J45.909 ; Lumbar radiculopathy M54.16 ; Sleep apnea in adult G47.30 ; Chronic sinusitis, unspecified J32.9 and Former smoker Z87.891 Yovanny Noel III, MD [address] [place] [address] [place] [address] 07/22/2024 Yovanny Noel Other and unspecifie d hyperlipidemia E78.5 ; Morbid obesity E66.01 ; Cough R05.9 ; Allergic rhinitis, unspecified J30.9 ; Postnasal drip R09.82 ; Former smoker Z87.891 ; Asthma J45.909 ; Essential hypertension I10 and Lumbar radiculopathy M54.16 Yovanny Noel III, MD [address] [place] [address] [place] [address] 07/30/2024 Yovanny Noel Chronic sinusitis, unspecified J32.9 ; Rhinitis J31.0 ; Stage 3b chronic kidney disease N18.32 ; Gastro-esophageal reflux disease with esophagitis, without bleeding K21.00 ; Morbid obesity E66.01 ; Former smoker Z87.891 ; Asthma J45.909 and Lumbar radiculopathy M54.16 Yovanny Noel III, MD [address] [place] [address] [place] [address] 08/11/2024 Yovanny Noel Chronic sinusitis, unspecified J32.9 ; Morbid obesity E66.01 ; Former smoker Z87.891 ; Asthma J45.909 and Lumbar radiculopathy M54.16 Yovanny Noel III, MD [address] [place] [address] [place] [address] 10/02/2024 Yovanny Noel Asthma J45.909 ; For [place] smoker Z87.891 ; Essential hypertension I10 ; Morbid obesity E66.01 and Lumbar radiculopathy M54.16 Yovanny Noel III, MD [address] [place] [address] [place] [address] 10/15/2024 Yovanny Noel Asthma J45.909 ; For [place] smoker Z87.891 ; Essential hypertension I10 ; Lumbar radiculopathy M54.16 ; Morbid obesity E66.01 ; Nontoxic uninodular goiter E04.1 ; Other and unspecified hyperlipidemia E78.5 ; CVA (cerebral vascular accident) I63.9 ; De Quervain's disease (radial styloid tenosynovitis) M65.4 ; Sleep apnea in adult G47.30 ; Vitamin D deficiency E55.9 and Reactive depression F32.9 Yovanny Noel III, MD [address] [place] [address] [place] [address] 10/21/2024 Yovanny Noel Asthma J45.909 ; Lum bar radiculopathy M54.16 ; Morbid obesity E66.01 ; Sleep apnea in adult G47.30 ; Vitamin D deficiency E55.9 and Reactive depression F32.9 Yovanny Noel III, MD [address] [place] [address] [place] [address] 10/31/2024 Yovanny Noel Asthma J45.909 ; For [place] smoker Z87.891 ; Essential hypertension I10 ; Morbid obesity E66.01 and Lumbar radiculopathy M54.16 Yovanny Noel III, MD [address] [place] [address] [place] [address] 12/29/2024 Yovanny Noel Asthma J45.909 ; Mor bid obesity E66.01 ; Other and unspecified hyperlipidemia E78.5 ; Nontoxic uninodular goiter E04.1 ; Former smoker Z87.891 ; CVA (cerebral vascular accident) I63.9 ; Sleep apnea in adult G47.30 ; Vitamin D deficiency E55.9 ; Stage 3b chronic kidney disease N18.32 and Constipation K59.00 Yovanny Noel III, MD [address] [place] [address] [place] [address] 01/21/2024 Yovanny Noel III, MD [address] [place] [address] [place] [address] 01/21/2024 Yovanny Noel III, MD [address] [place] [address] 01/28/2024 Yovanny Noel III, MD [address] [facility] [address] 02/06/2024 Yovanny Noel III, MD [address] [facility] [address] 04/25/2024 Yovanny Noel III, MD [address] [facility] [address] 05/23/2024 Yovanny Noel Asthma J45.909 Yovanny Noel III, MD [address] [facility] [place] [address] 06/20/2024 Yovanny Noel III, MD [address] [facility] [address] 06/20/2024 Yovanny Noel III, MD [address] [facility] [address] 06/23/2024 Yovanny Noel III, MD [address] [place] [address] 07/18/2024 Yovanny Noel III, MD [address] [facility] [address] 07/21/2024 Yovanny Noel III, MD [address] [facility] [place] [address] 08/08/2024 Yovanny Sadie Cough R05.9 Yovanny Noel III, MD [address] [place] [address] 08/18/2024 Yovanny Noel III, MD [address] [place] [address] 10/17/2024 Yovanny Noel III, MD [address] [place] [address] 10/17/2024 Yovanny Noel III, MD [address] [facility] [place] [address] 10/21/2024 Yovanny Noel III, MD [address] [place] [address] DR [place], Y[place]MEEN [address] 10/27/2024 Yovanny Noel Assessments Encounter Date Diagnosis (ICD Code) Assessment Notes Treatment Notes Treatment Clinical Notes 01/14/2025 Asthma (ICD-10 - J45.909) She has bbeen treated of asthma lately. There was no wheezing today. She was breathing room air comfortably. Current therapy was continued. 01/18/2024 Asthma (ICD-10 - J45.909) She will continue on the steroids. I have given her an antibiotic. Follow-up visit in a couple of days after comprehensive blood work was arranged. 01/18/2024 Morbid obesity (ICD-10 - E66.01) She is involved in the weight loss program at [facility] and has had bariatric surgery. She sees her physician regularly. Her body mass index is 522.78, and she has gained 4 pounds since her last visit. We discussed her weight loss strategy in detail today. She is resolved. Again, no further weight and to lose steadily. 02/04/2024 Asthma (ICD-10 - J45.909) She will continue on the steroids. I have given her an antibiotic. Follow-up visit in a couple of days after comprehensive blood work was arranged. 02/04/2024 Acute abdominal pain (ICD-10 - R10.9) Because of several serious causes of this clinical scenario she was sent to the emergency room at [facility] where her bariatric surgeon, Dr. Hubbard, is located. The differential includes cholecystitis, perforated bowel, bowel obstruction, pancreatitis, aortic dissection etc. 02/11/2024 Asthma (ICD-10 - J45.909) She is not wheezing at the current time. She is using her mediications appropriately. She understands that she will call me at once if the asthma exacerbates. 02/11/2024 Other and unspecified hyperlipidemia (ICD-10 - E78.5) No recent comprehensive laboratory database is available at this time. Blood work as been ordered which will include a fasting lipid profile. She was encouraged to continue her progress with weight loss. 04/22/2024 Asthma (ICD-10 - J45.909) She is not wheezing at the current time. She is using her mediications appropriately. She understands that she will call me at once if the asthma exacerbates. 04/22/2024 Simple chronic bronchitis (ICD-10 - J41.0) We will employ [id number] antitussives and attempt to control the cough. A trial of lisinopril cessation may be needed. A chest x-ray has been ordered. 05/05/2024 Asthma (ICD-10 - J45.909) She is not wheezing at the current time. She is using her mediications appropriately. She understands that she will call me at once if the asthma exacerbates. 05/05/2024 Essential hypertension (ICD-10 - I10) She was given an appointment to come back to the office in the near future to measure her blood pressure and weight and vital signs. Her last blood pressure was elevated as was her pulse. 05/20/2024 Asthma (ICD-10 - J45.909) The wheezing has resolved and she is now breathing comfortably. Current therapy was continued. 05/20/2024 Other and unspecified hyperlipidemia (ICD-10 - E78.5) No recent comprehensive laboratory database is available at this time. Blood work as been ordered which will include a fasting lipid profile. She was encouraged to continue her progress with weight loss. 06/12/2024 Asthma (ICD-10 - J45.909) The wheezing has resolved and she is now breathing comfortably. Current therapy was continued. 06/12/2024 Other and unspecified hyperlipidemia (ICD-10 - E78.5) A recent value is unavailable. Comprehensive blood work will be done prior to her next visit. She was continued on her current regimen. She has lost 5 pounds. 06/24/2024 Asthma (ICD-10 - J45.909) She continues to have mild wheezing but is breathing comfortably. 06/24/2024 Postnasal drip (ICD-10 - R09.82) She was advised to use her fluticasone nasal spray. If that is ineffective I recommended Claritin. 07/15/2024 Other and unspecified hyperlipidemia (ICD-10 - E78.5) A recent value is unavailable. Comprehensive blood work will be done prior to her next visit. She was continued on her current regimen. She has lost 5 pounds. 07/15/2024 Otitis of right ear (ICD-10 - H66.91) She was given another course of Augmentin. 07/22/2024 Other and unspecified hyperlipidemia (ICD-10 - E78.5) Comprehensive blood work with a fasting lipid profile is being done periodically. 07/22/2024 Morbid obesity (ICD-10 - E66.01) Her body mass index is 48. We have discussed her diet and nutrition. She is going to try to lose weight at a rate of one half pound per week. She declined an offer of injectable semaglutide. 07/30/2024 Chronic sinusitis, unspecified (ICD-10 - J32.9) She has been given another course of Augmentin. 07/30/2024 Rhinitis (ICD-10 - J31.0) She will continue on symptomatic treatment until CT scan is available. 08/11/2024 Chronic sinusitis, unspecified (ICD-10 - J32.9) She has been given another course of Augmentin. She reports today that she is beginning to improve and brief more normally. A CT scan of her skull and sinuses showed no significant abnormality. 08/11/2024 Morbid obesity (ICD-10 - E66.01) Her body mass index is 48. We have discussed her diet and nutrition. She is going to try to lose weight at a rate of one half pound per week. She declined an offer of injectable semaglutide. 10/02/2024 Former smoker (ICD-10 - Z87.891) She is highly motivated to not smoke. We have discussed a strategy for maintenance of abstinence in times of stress and illness. 10/02/2024 Asthma (ICD-10 - J45.909) She continues to have mild wheezing but is breathing comfortably. 10/15/2024 Former smoker (ICD-10 - Z87.891) She is highly motivated to not smoke. We have discussed a strategy for maintenance of abstinence in times of stress and illness. 10/15/2024 Asthma (ICD-10 - J45.909) She continues to have mild wheezing but is breathing comfortably.She has had a viral syndrome, now complicated by bacterial bronchitis. I have given her an antibiotic and she will continue on steroids. She will call me once if she deteriorates. 10/21/2024 Asthma (ICD-10 - J45.909) She is couughing somewhat but her wheezing has resolved. 10/21/2024 Lumbar radiculopathy (ICD-10 - M54.16) She has had an acute flare of low back pain. It is very similar to previous episodes. I have given her dexamethasone. She will continue with acetaminophen and rest. She declines to take any more injections or referral to pain management or physiatry. 10/31/2024 Former smoker (ICD-10 - Z87.891) She is highly motivated to not smoke. We have discussed a strategy for maintenance of abstinence in times of stress and illness. 10/31/2024 Asthma (ICD-10 - J45.909) She is couughing somewhat but her wheezing has resolved. 12/29/2024 Asthma (ICD-10 - J45.909) She has [...] to weigh her and form of support. 05/23/2024 Asthma (ICD-10 - J45.909) The wheezing has resolved and she is now breathing comfortably. Current therapy was continued. 08/08/2024 Cough (ICD-10 - R05.9) 01/18/2024 Lumbar radiculopathy (ICD-10 - M54.16) She continues to slowly improve. I'll continue the gabapentin and dexamethasone. She is going to call me after the weekend and report. 02/04/2024 Other and unspecified hyperlipidemia (ICD-10 - E78.5) No recent comprehensive laboratory database is available at this time. Blood work as been ordered which will include a fasting lipid profile. She was encouraged to continue her progress with weight loss. 02/11/2024 Nontoxic uninodular goiter (ICD-10 - E04.1) Her thyroid is not palpable today. She appears to be euthyroid. This problem will be followed closely. 04/22/2024 Persistent cough (ICD-10 - R05.3) She will continue on current medication for now. 05/05/2024 Morbid obesity (ICD-10 - E66.01) She is involved in the weight loss program at [facility] and has had bariatric surgery. She sees her physician regularly. Her body mass index is 522.78, and she has gained 4 pounds since her last visit. We discussed her weight loss strategy in detail today. She is resolved. Again, no further weight and to lose steadily. 05/20/2024 Nontoxic uninodular goiter (ICD-10 - E04.1) Her thyroid is not palpable today. She appears to be euthyroid. This problem will be followed closely. 06/12/2024 Essential hypertension (ICD-10 - I10) Her blood pressure is 143/83. We have discussed weight reduction and sodium restriction. She has lost 5 pounds. We will continue to reduce the blood pressure lifestyle modification. 06/24/2024 Other and unspecified hyperlipidemia (ICD-10 - E78.5) A recent value is unavailable. Comprehensive blood work will be done prior to her next visit. She was continued on her current regimen. She has lost 5 pounds. 07/15/2024 Nontoxic uninodular goiter (ICD-10 - E04.1) Her thyroid is not palpable today. She appears to be euthyroid. This problem will be followed closely. 07/22/2024 Cough (ICD-10 - R05.9) Continues to cough during the day and night. I have prescribed guaifenesin a.c. with instructions not to drive. 07/30/2024 Stage 3b chronic kidney disease (ICD-10 - N18.32) Her current GFR is 38. She is under the care of nephrology. Her hydrochlorothiazide was stopped. Her blood pressure was reasonable today. 08/11/2024 Former smoker (ICD-10 - Z87.891) She is highly motivated to not smoke. We have discussed a strategy for maintenance of abstinence in times of stress and illness. 10/02/2024 Essential hypertension (ICD-10 - I10) Her blood pressure has come under control. She is being evaluated by nephrology with metanephrines. An ultrasound of her renal arteries did not show renal artery stenosis. We have discussed weight reduction and sodium restriction. Panorex. We will continue to reduce the blood pressure lifestyle modification. 10/15/2024 Essential hypertension (ICD-10 - I10) Her blood pressure has come under control. She is being evaluated by nephrology with metanephrines. An ultrasound of her renal arteries did not show renal artery stenosis. We have discussed weight reduction and sodium restriction. Panorex. We will continue to reduce the blood pressure lifestyle modification. 10/21/2024 Morbid obesity (ICD-10 - E66.01) Her body mass index is 49. She has gained 3 pounds.We have discussed her diet and nutrition. She is going to try to lose weight at a rate of one half pound per week. She declined an offer of injectable semaglutide. 10/31/2024 Essential hypertension (ICD-10 - I10) Her blood pressure has come under control. She is being evaluated by nephrology with metanephrines. An ultrasound of her renal arteries did not show renal artery stenosis. We have discussed weight reduction and sodium restriction. Panorex. We will continue to reduce the blood pressure lifestyle modification. 12/29/2024 Other and unspecified hyperlipidemia (ICD-10 - E78.5) Comprehensive blood work with a fasting lipid profile is being done periodically.The most recent total cholesterol was within normal limits. 01/18/2024 Other and unspecified hyperlipidemia (ICD-10 - E78.5) No recent comprehensive laboratory database is available at this time. Blood work as been ordered which will include a fasting lipid profile. She was encouraged to continue her progress with weight loss. 02/04/2024 Nontoxic uninodular goiter (ICD-10 - E04.1) Her thyroid is not palpable today. She appears to be euthyroid. This problem will be followed closely. 02/11/2024 Former smoker (ICD-10 - Z87.891) She is highly motivated to not smoke. We have discussed a strategy for maintenance of abstinence in times of stress and illness. 04/22/2024 Former smoker (ICD-10 - Z87.891) She is highly motivated to not smoke. We have discussed a strategy for maintenance of abstinence in times of stress and illness. 05/05/2024 Nontoxic uninodular goiter (ICD-10 - E04.1) Her thyroid is not palpable today. She appears to be euthyroid. This problem will be followed closely. 05/20/2024 Former smoker (ICD-10 - Z87.891) She is highly motivated to not smoke. We have discussed a strategy for maintenance of abstinence in times of stress and illness. 06/12/2024 Morbid obesity (ICD-10 - E66.01) She has lost 5 pounds in her body mass index is now 49. She will be supported through an ongoing weight loss program. 06/24/2024 Former smoker (ICD-10 - Z87.891) She is highly motivated to not smoke. We have discussed a strategy for maintenance of abstinence in times of stress and illness. 07/15/2024 Essential hypertension (ICD-10 - I10) Her blood pressure has come under control. She is being evaluated by nephrology with metanephrines. An ultrasound of her renal arteries did not show renal artery stenosis. We have discussed weight reduction and sodium restriction. Panorex. We will continue to reduce the blood pressure lifestyle modification. 07/22/2024 Allergic rhinitis, unspecified (ICD-10 - J30.9) She has failed to respond to the usual maneuvers. She is coughing most of the day and finds it difficult to sleep R conduct any of the activities daily life. A CT scan of the base of skull to the neck has been ordered to find the cause and severity of the complaint. 07/30/2024 Gastro-esophageal reflux disease with esophagitis, without bleeding (ICD-10 - K21.00) Her reflux symptoms are well controlled with medication. She is avoiding foods and medication that stimulate acid production. 08/11/2024 Asthma (ICD-10 - J45.909) She continues to have mild wheezing but is breathing comfortably. 10/02/2024 Morbid obesity (ICD-10 - E66.01) Her body mass index is 49. She has gained 3 pounds.We have discussed her diet and nutrition. She is going to try to lose weight at a rate of one half pound per week. She declined an offer of injectable semaglutide. 10/15/2024 Lumbar radiculopathy (ICD-10 - M54.16) She continues to slowly improve. I'll continue the gabapentin and dexamethasone. She is going to call me after the weekend and report. 10/21/2024 Sleep apnea in adult (ICD-10 - G47.30) She continues to use her CPAP. 10/31/2024 Morbid obesity (ICD-10 - E66.01) Her body mass index is 49. She has gained 3 pounds.We have discussed her diet and nutrition. She is going to try to lose weight at a rate of one half pound per week. She declined an offer of injectable semaglutide. 12/29/2024 Nontoxic uninodular goiter (ICD-10 - E04.1) Her thyroid is not palpable today. She appears to be euthyroid. This problem will be followed closely. 01/18/2024 Nontoxic uninodular goiter (ICD-10 - E04.1) Her thyroid is not palpable today. She appears to be euthyroid. This problem will be followed closely. 02/04/2024 Former smoker (ICD-10 - Z87.891) She is highly motivated to not smoke. We have discussed a strategy for maintenance of abstinence in times of stress and illness. 02/11/2024 Essential hypertension (ICD-10 - I10) Her blood pressure today was in the normal range. 04/22/2024 Nontoxic uninodular goiter (ICD-10 - E04.1) Her thyroid is not palpable today. She appears to be euthyroid. This problem will be followed closely. 05/05/2024 Former smoker (ICD-10 - Z87.891) She is highly motivated to not smoke. We have discussed a strategy for maintenance of abstinence in times of stress and illness. 05/20/2024 Essential hypertension (ICD-10 - I10) She was given an appointment to come back to the office in the near future to measure her blood pressure and weight and vital signs. Her last blood pressure was elevated as was her pulse. 06/12/2024 Lumbar radiculopathy (ICD-10 - M54.16) She continues to slowly improve. I'll continue the gabapentin and dexamethasone. She is going to call me after the weekend and report. 06/24/2024 Essential hypertension (ICD-10 - I10) Her blood pressure is unchanged. We have discussed weight reduction and sodium restriction. Panorex. We will continue to reduce the blood pressure lifestyle modification. 07/15/2024 Asthma (ICD-10 - J45.909) She continues to have mild wheezing but is breathing comfortably. 07/22/2024 Postnasal drip (ICD-10 - R09.82) She is going to continue the Claritin and the guaifenesin a.c. She has an appointment in August to see ENT. 07/30/2024 Morbid obesity (ICD-10 - E66.01) Her body mass index is 48. We have discussed her diet and nutrition. She is going to try to lose weight at a rate of one half pound per week. She declined an offer of injectable semaglutide. 08/11/2024 Lumbar radiculopathy (ICD-10 - M54.16) She continues to slowly improve. I'll continue the gabapentin and dexamethasone. She is going to call me after the weekend and report. 10/02/2024 Lumbar radiculopathy (ICD-10 - M54.16) She continues to slowly improve. I'll continue the gabapentin and dexamethasone. She is going to call me after the weekend and report. 10/15/2024 Morbid obesity (ICD-10 - E66.01) Her body mass index is 49. She has gained 3 pounds.We have discussed her diet and nutrition. She is going to try to lose weight at a rate of one half pound per week. She declined an offer of injectable semaglutide. 10/21/2024 Vitamin D deficiency (ICD-10 - E55.9) She is continuing on vitamin D supplementation. 10/31/2024 Lumbar radiculopathy (ICD-10 - M54.16) She has had an acute flare of low back pain. It is very similar to previous episodes. I have given her dexamethasone. She will continue with acetaminophen and rest. She declines to take any more injections or referral to pain management or physiatry. 12/29/2024 Former smoker (ICD-10 - Z87.891) She is highly motivated to not smoke. We have discussed a strategy for maintenance of abstinence in times of stress and illness. 01/18/2024 Former smoker (ICD-10 - Z87.891) She is highly motivated to not smoke. We have discussed a strategy for maintenance of abstinence in times of stress and illness. 02/04/2024 Essential hypertension (ICD-10 - I10) Her blood pressure today was in the normal range. 02/11/2024 Morbid obesity (ICD-10 - E66.01) She is involved in the weight loss program at [facility] and has had bariatric surgery. She sees her physician regularly. Her body mass index is 522.78, and she has gained 4 pounds since her last visit. We discussed her weight loss strategy in detail today. She is resolved. Again, no further weight and to lose steadily. 04/22/2024 Other and unspecified hyperlipidemia (ICD-10 - E78.5) No recent comprehensive laboratory database is available at this time. Blood work as been ordered which will include a fasting lipid profile. She was encouraged to continue her progress with weight loss. 05/05/2024 Lumbar radiculopathy (ICD-10 - M54.16) She continues to slowly improve. I'll continue the gabapentin and dexamethasone. She is going to call me after the weekend and report. 05/20/2024 Reactive depression (ICD-10 - F32.9) She has been taking citalopram only intermittently. She will continue to take it on a daily basis. Follow-up visit near future was scheduled. 06/12/2024 Reactive depression (ICD-10 - F32.9) She has been taking citalopram only intermittently. She will continue to take it on a daily basis. Follow-up visit near future was scheduled. 06/24/2024 Morbid obesity (ICD-10 - E66.01) Her body mass index remains 49. She has not gained more weight. I reinforced a weight loss program. She will try to lose one half of a pound per week. 07/15/2024 Lumbar radiculopathy (ICD-10 - M54.16) She continues to slowly improve. I'll continue the gabapentin and dexamethasone. She is going to call me after the weekend and report. 07/22/2024 Former smoker (ICD-10 - Z87.891) She is highly motivated to not smoke. We have discussed a strategy for maintenance of abstinence in times of stress and illness. 07/30/2024 Former smoker (ICD-10 - Z87.891) She is highly motivated to not smoke. We have discussed a strategy for maintenance of abstinence in times of stress and illness. 10/15/2024 Nontoxic uninodular goiter (ICD-10 - E04.1) Her thyroid is not palpable today. She appears to be euthyroid. This problem will be followed closely. 10/21/2024 Reactive depression (ICD-10 - F32.9) She has been taking citalopram only intermittently. She will continue to take it on a daily basis. Follow-up visit near future was scheduled. 12/29/2024 CVA (cerebral vascular accident) (ICD-10 - I63.9) She continues to have mild residual numbness in left side of her face but no muscle weakness is noted. She is able to conduct all of the activities of daily living. Her blood pressure is stable and her weight is dropping steadily. She is consuming a healthy, low-sodium diet. 01/18/2024 Essential hypertension (ICD-10 - I10) She will be seen next week. I have adjusted her hydralazine. She will bring all of her medications to the office next week. 02/11/2024 Lumbar radiculopathy (ICD-10 - M54.16) She continues to slowly improve. I'll continue the gabapentin and dexamethasone. She is going to call me after the weekend and report. 04/22/2024 Essential hypertension (ICD-10 - I10) She was given an appointment to come back to the office in the near future to measure her blood pressure and weight and vital signs. Her last blood pressure was elevated as was her pulse. 05/05/2024 Stage 3b chronic kidney disease (ICD-10 - N18.32) Her current GFR is 38. She is under the care of nephrology. Her hydrochlorothiazide was stopped. Her blood pressure was reasonable today. 05/20/2024 Sleep apnea in adult (ICD-10 - G47.30) She continues to use her CPAP. 06/12/2024 CVA (cerebral vascular accident) (ICD-10 - I63.9) She continues to have mild residual numbness in left side of her face but no muscle weakness is noted. She is able to conduct all of the activities of daily living. Her blood pressure is stable and her weight is dropping steadily. She is consuming a healthy, low-sodium diet. 07/15/2024 Sleep apnea in adult (ICD-10 - G47.30) She continues to use her CPAP. 07/22/2024 Asthma (ICD-10 - J45.909) She continues to have mild wheezing but is breathing comfortably. 07/30/2024 Asthma (ICD-10 - J45.909) She continues to have mild wheezing but is breathing comfortably. 10/15/2024 Other and unspecified hyperlipidemia (ICD-10 - E78.5) Comprehensive blood work with a fasting lipid profile is being done periodically. 12/29/2024 Sleep apnea in adult (ICD-10 - G47.30) She continues to use her CPAP. 01/18/2024 Sleep apnea in adult (ICD-10 - G47.30) She continues to use her CPAP. 02/11/2024 Acute pancreatitis, unspecified complication status, unspecified pancreatitis type (ICD-10 - K85.90) The pain has persisted so she iis going to have a gastroenterology consultation. She is able to eat and drink. She has had no vomiting. 05/20/2024 Gastro-esophageal reflux disease with esophagitis, without bleeding (ICD-10 - K21.00) Her reflux symptoms are well controlled with medication. She is avoiding foods and medication that stimulate acid production. 06/12/2024 Nontoxic uninodular goiter (ICD-10 - E04.1) Her thyroid is not palpable today. She appears to be euthyroid. This problem will be followed closely. 07/15/2024 Chronic sinusitis, unspecified (ICD-10 - J32.9) She has been given another course of Augmentin. 07/22/2024 Essential hypertension (ICD-10 - I10) Her blood pressure has come under control. She is being evaluated by nephrology with metanephrines. An ultrasound of her renal arteries did not show renal artery stenosis. We have discussed weight reduction and sodium restriction. Panorex. We will continue to reduce the blood pressure lifestyle modification. 07/30/2024 Lumbar radiculopathy (ICD-10 - M54.16) She continues to slowly improve. I'll continue the gabapentin and dexamethasone. She is going to call me after the weekend and report. 10/15/2024 CVA (cerebral vascular accident) (ICD-10 - I63.9) She continues to have mild residual numbness in left side of her face but no muscle weakness is noted. She is able to conduct all of the activities of daily living. Her blood pressure is stable and her weight is dropping steadily. She is consuming a healthy, low-sodium diet. 12/29/2024 Vitamin D deficiency (ICD-10 - E55.9) She is continuing on vitamin D supplementation. 01/18/2024 Gastro-esophageal reflux disease with esophagitis, without bleeding (ICD-10 - K21.00) Her reflux symptoms are well controlled with medication. She is avoiding foods and medication that stimulate acid production. 05/20/2024 Morbid obesity (ICD-10 - E66.01) She is involved in the weight loss program at [facility] and has had bariatric surgery. She sees her physician regularly. Her body mass index is 522.78, and she has gained 4 pounds since her last visit. We discussed her weight loss strategy in detail today. She is resolved. Again, no further weight and to lose steadily. 07/15/2024 Former smoker (ICD-10 - Z87.891) She is highly motivated to not smoke. We have discussed a strategy for maintenance of abstinence in times of stress and illness. 07/22/2024 Lumbar radiculopathy (ICD-10 - M54.16) She continues to slowly improve. I'll continue the gabapentin and dexamethasone. She is going to call me after the weekend and report. 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 12/29/2024 Stage 3b chronic kidney disease (ICD-10 - N18.32) Her current GFR is 38. She is under the care of nephrology. Her hydrochlorothiazide was stopped. Her blood pressure was reasonable today. 10/15/2024 Sleep apnea in adult (ICD-10 - G47.30) She continues to use her CPAP. 12/29/2024 Constipation (ICD-10 - K59.00) I gave her instructions to consume one [employer] brands fairly with every breakfast. She will take Senokot twice a day. A followup was arranged. 10/15/2024 Vitamin D deficiency (ICD-10 - E55.9) She is continuing on vitamin D supplementation. 10/15/2024 Reactive depression (ICD-10 - F32.9) She has been taking citalopram only intermittently. She will continue to take it on a daily basis. Follow-up visit near future was scheduled. Plan Of Treatment Pending Test Test Name Order Date CT SINUS NO CONTRAST 08/08/2024 CT SINUS WITH CONTRAST 07/22/2024 MRI LUMBAR SPINE NO CONTRAST 04/01/2021 MRI LUMBAR SPINE NO CONTRAST 10/02/2024 XR CHEST 2 VIEW PA & LAT 04/22/2024 US RENAL DOPPLER 12/04/2022 Next Appt Details Provider Name:Yovanny Noel, 02/18/2025 10:30:00 AM, [address] [facility] [address], [place], [address], Provider Name:Yovanny Noel, 10/05/2025 10:30:00 AM, [address] [facility] [address], [place], [address], Insurance Providers Payer Name Payer Address Payer Phone Subscriber Number Group Number Insured Name Patient Relationship to Insured Coverage Start Date Coverage End Date MEDICARE NGS [address] [place] [address] [id number] Lynnette Mcgill Self - patient is the insured MEDICA[place] [address] [place] [id number] Lynnette Mcgill Self - patient is the insured Medical (General) History Medical History History ICD Code thyroid nodule right knee fracture obesity hypertension asthma back pain hyperlipidemia atypical chest pain last mammogram 11/08/2012 Sleep apnea Bulging disc, Narrowing in the spine The patient has a history of asthma. Surgical History Surgery Date(Month/Year) No history Sleeve Gastrectomy [facility] 09/14/21 Cardiac Catheterization 10/28/2020 hysterectomy for bleeding Hospitalization History Reason Date(Month/Year) No history CVA 07/2020 re: Hypertension 07/2018
--- OUTSIDE RECORDS SUMMARY | 2025-01-16 14:20 | XMS_ITS ---
Author Organization Yovanny Noel III, MD Address [address] [place] [address] Care Team Providers Care Pipelayer Name Role Phone Yovanny Noel Primary Care Provider REASON FOR VISIT Follow up Social History Sex Assigned At : Social History Observation Description Sex Assigned At Female Encounters Encounter Location Date Provider Diagnosis Yovanny Noel III, MD [address] [place] [address] [place] [address] 12/26/2024 Yovanny Noel Plan Of Treatment Next Appt Details Provider Name:Yovanny Noel, 02/18/2025 10:30:00 AM, [address] [place] [address] [place], [address], Provider Name:Yovanny Noel, 10/05/2025 10:30:00 AM, [address] [place] [address] [place], [address], Progress Notes * Lynnette MCGILL TDOB: [birth year] (64 yo F)Acc No.[id number]:12/26/2024 Progress Notes Patient:Lynnette BARRIGA Provider:?Yovanny Noel MD :1960???Age:64 Y???Sex:Female D ate:12/26/2024 Address:[address] [place], [place] [id number] Subjective: * Chief Complaints: * ???1. Follow up. * Medical History:? Objective: * Vitals:? Assessment: Plan: * Treatment: * Images: * The named appointment provid er may or may not be the originator of this progress note, and it is not deemed complete until electronically signed by the appointment provider. Sign off status: Pending * Provider:?Yovanny Noel MD Date:?11/30 Generated for Noreen fonseca/Joel/eTransmitting on:?01/16/2025 02:19 PM EDT
--- OUTSIDE RECORDS SUMMARY | 2025-01-16 14:20 | XMS_ITS | Clinical Summary ---
Author Organization [facility] Address [address] [place] [address] Phone Care Team Providers Care Ccnp Name Role Phone Yovanny Noel MD Primary Care Provider [phone] Allergies Active Allergy Reactions Criticality Noted Date [...] DAILY. STOP POTASSIUM SUPPLEMENT. 1 Active Tiotropium Mcgregor Monohydrate 1.25 MCG/ACT aerosol solution Inhale 1 [...] Obstructive sleep apnea syndrome 02/07/2018 Overview (03/26/2021): [facility] Home Sleep Apnea Test: Date [...] Mass Index - - Plan of Treatment Health Maintenance Due Date Last Done Comments Breast Cancer Screening 1960 Pneumococcal Vaccine: 50+ Ye ars (1 of 2 - PCV) 1980 Colorectal Cancer Screening: Annual FOBT 2010 Colorectal Cancer Screening: Colonoscopy 2010 Colorectal Cancer Screening: Sigmoidoscopy 2010 Influenza Vaccine (Season Ended) 2025 Hepatitis B Vaccine Aged Out No longe r eligible based on patient's age to complete this topic Insurance Medicare Medicaid [place] Medicaid [place] Medicare Care Teams Ccnp Relationship Specialty Start Date End Date Yovanny Noel MD [address] [place] [address] , [address] [place] [address] PCP - General Medical Oncology 01/18/24
--- NOTE | 2025-01-16 14:22 | HO.NEPHOV_ITS ---
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 Recently she had left-sided weakness and numbness and she was evaluated at [facility] and was found to have a small CVA. Her blood pressure had not been well controlled. She is now trying to control her blood pressure and also lose weight. She does use her CPAP every night. She has history of gastric bypass surgery. She is not a diabetic. She has been taking YOSEF inhibitor as well as nonsteroidal anti- inflammatories along with hydrochlorothiazide. Her urine output is good. She does not have any new joint swellings, epistaxis, photosensitivity, hematuria, flank pain, history of peripheral arterial disease, history of renal artery stenosis, nephrolithiasis, new skin rashes. Her serum creatinine has improved and stable [facility] Medical History (Updated 01/20/25 @ 22:18 by Da Raya MD) Chronic allergic rhinitis Laryngitis [id number] syndrome CVA (cerebral vascular accident) DEMI on CPAP Dyspnea Chest pressure Asthma Surgical History History of gastric bypass History of left knee surgery History of hysterectomy Family History Mother Breast cancer HTN (hypertension) Father Kidney disease HTN (hypertension) Maternal Uncle Diabetes Son Diabetes Social History Alcohol intake: never Patient Tobacco Use Status: Never used Tobacco Review of Systems Const All systems reviewed & are unremarkable except as noted in HPI and below Physical Exam Vital Signs: Last Vital Signs Pulse 72 01/16/25 14:23 BP 122/80 01/16/25 14:23 Pulse Ox 100 01/16/25 14:23 Oxygen Delivery Method Room Air 01/16/25 14:23 BMI result Body Mass Index 44.8 Const General: comfortable and no acute distress Orientation/consciousness: patient oriented x3 HEENT Head: Yes normocephalic Mouth: Normal oral and palatal mucosa present Eyes EOM: EOMs intact bilaterally Neck Neck: Yes supple Resp Auscultation: clear to auscultation bilaterally Cardio Jugular venous distension: no JVD Rate: regular rate GI Palpation (GI): Soft to palpation Auscultation: normal bowel sounds General: Yes no CVA tenderness Back/Spine/Pelvis Back: no CVA tenderness Skin General skin exam: no rashes or lesions noted Neuro General: patient oriented x3 and moves all extremities Extrem General: Yes no pedal edema Results Reviewed Nephrology Results: Hgb 11.0 g/dl (12.0-16.0) L 12/24/24 WBC 5.0 X10*3/uL (4.8-10.8) 12/24/24 Plt Count 214 X10*3/uL (160-400) 12/24/24 Sodium 141 mmol/L (135-145) 12/24/24 Potassium 3.8 mmol/L (3.3-5.1) 12/24/24 Chloride 114 mmol/L (96-108) H 12/24/24 Carbon Dioxide 20 mmol/L (22-29) L 12/24/24 BUN 32 mg/dL (9-16) H 12/24/24 Creatinine 1.28 mg/dL (0.5-1.4) 12/24/24 Calcium 9.8 mg/dL (8.4-10.2) 12/24/24 Assessment & Plan Assessment & Plan (1) Hypertension: Code(s): I10 - Essential (primary) hypertension Category: Medical Qualifiers: Hypertension type: primary hypertension Qualified Code(s): I10 - Essential (primary) hypertension (2) CKD stage 3a, GFR 45-59 ml/min: Code(s): N18.31 - Chronic kidney disease, stage 3a Category: Medical Plan Lynnette had RACHID most likely due to tubular injury which is resolved. Her urine output is good. She has CKD 3 from vascular disease.I asked her not to take nonsteroidal anti-inflammatories and maintain good hydration. Her blood pressure needs to be maintain a goal. I shall continue to optimize her med ications to get her blood pressure to goal in her subsequent office visits. Renal USS and Doppler of renal arteries were unremarkable. No medication changes made. All these have been explained in detail. F/U labs ordered& F/U given Orders: Orders Creatinine 6 Months I10 - Essential (primary) hypertension Blood Urea Nitrogen 6 Months I10 - Essential (primary) hypertension Calcium 01/16/25 I10 - Essential (primary) hypertension Electrolytes 6 Months I10 - Essential (primary) hypertension Protein Creatinine Ratio, Ur 6 Months I10 - Essential (primary) hypertension Coding Level of Care Code Est Pt Level 4 (52314) Diagnoses Primary hypertension I10 Hypertension type: primary hypertension CKD stage 3a, GFR 45-59 ml/min N18.31
[2025-01-16 14:23] VITALS: BP 122/80; PULSE 72; O2SAT 100; BMI 44.8
== END 2025-01-16 14:57 | disposition home or self-care (01) ==
LOC: HO.HKA 13:58
PROVIDERS: PCP Internal Medicine Medical Oncology; Visit Provider Internal Medicine Nephrology
DX: I10 Essential (primary) hypertension (principal); N18.31 Chronic kidney disease, stage 3a
CPT/HCPCS: 99214

== ENCOUNTER → 2025-01-16 13:57 | Outpatient (BNVA) | payer MEDICARE, MEDICAID, SELFPAY | PROVIDERS: PCP Internal Medicine Medical Oncology; Visit Provider Internal Medicine Nephrology | DX: I12.9 Hypertensive chronic kidney disease with stage 1 through stage 4 chronic kidney disease, or unspecified chronic kidney disease (principal); N18.31 Chronic kidney disease, stage 3a | CPT/HCPCS: 99212 ==

== ENCOUNTER 2025-02-09 10:05 | Outpatient (AMB) | payer MEDICARE, MEDICAID, SELFPAY ==
[2025-02-09 10:09] VITALS: BP 144/82; PULSE 59; O2SAT 100; BMI 44.8
--- NOTE | 2025-02-09 10:09 | A.OFFVIS_ITS ---
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 Recently she developed left-sided weakness and numbness and she was evaluated at [facility]. She was so she had a small CVA. She is now trying to control her blood pressure and also lose weight. In the meantime she does complaint of dyspnea on exertion also with chest heaviness. Eumm-jg-qfiapeuk severity. It does take her between 3-5 min utes to recover from her ambulation. She has been using Breo for asthma with good effect. She also has a rescue inhaler that she uses at times but less than twice a week. In addition to that she does use her CPAP every night. CPAP therapy continues to be affecting beneficial. She feels the pressures are too long rather have the elevations in the pressures. I did request axis from her [employer], [place] to get access in order to adjust the machine online. In the office we did have her go for 6 minutes walk test. She did not desaturate heart rate went up to 102. During the ambulation she did complaint of chest heaviness and therefore had to stop. Her symptoms resolved after stopping. I did inform her that I did think cardiology consultation be warranted at this time specially with her recent CVA in her increase cardiovascular risk factors. Were also optimize respiratory therapy and also try to optimize her PAP therapy. 07/13/2023 the patient is here for pulmonary follow-up visit. Overall she is doing well. She is losing weight and she is motivated. In addition to that she has gotten relief from her Breo inhaler. She has not require her short-acting beta agonist. We did review her pulmonary function studies demonstrating normal lung capacity and normal lung mechanics. Does have a component of small airways disease which is likely from the asthma. Regards to the CPAP the CPAP therapy continues to be affecting beneficial. She continues using more than 4 hours a night. Her major complaint is chronic cough and some constant clearing of the throat which she feels that she has fullness in secretions. Explained to her that is likely from an upper airway cough syndrome in nasal congestion. We will optimize her nasal therapy. If however the patient has no improvement then an ENT evaluation. 01/30/2024 the patient is here for a pulmonary follow-up visit. She still complaining of nasal congestion postnasal drip. Recently she was sick and she had to go to see her primary care and she was prescribed antibiotics for likely sinusitis. She did get better although she still feels congested. In addition to that because of the postnasal drip in the cough is hard for her to tolerate her CPAP. She does use her CPAP and she does try to use more than 4 hours a night. CPAP therapy has been affecting beneficial. She needs to get supplies from the [employer]. Therefore, will go ahead and treat her more effectively for her sinusitis and hopefully subside the cough in order for her to tolerate her CPAP better. 08/05/2024 the patient is here for a pulmonary follow-up visit. She has had some difficulties lately. She has been having increasing shortness of breath. Also complaining of sinus pressure congestion. She started developing some ulcerations to the nares proximally on the outer part and also in the inner part. They have been difficult to heal. They keep crusting over and they are very painful. Very hard for her to put on her CPAP mask with those painful areas. Appears to be a localized infection at this time likely bacterial. She also has significant nasal congestion. Consistent with sinusitis. Therefore will go ahead and treated for that. Her primary care doctor did request a ENT consultation will be helpful as well. Will go ahead and treated with Bactroban and also doxycycline. The patient also could try Afrin for 5 days no more in order to try to open up her nasal passages. The patient needs to make sure to continue her respiratory medications and will go ahead and optimize them by switching her over to Trelegy which she can use it once daily and then her rescue inhaler as needed. Hopefully she can feel better she can start using her CPAP that she really needs. Will follow-up in 6 months if the patient is no better she can always call for an earlier assessment. 02/09/2025 the patient is here for a pulmonary follow-up visit. Overall she is doing okay. She does complaint of worsening daytime drowsiness. Her [place] score is elevated 12/24. Unfortunately she has not been able to use her CPAP regularly. Her mask is hurting her nose. She does have a nasal mask and 20 this causing irritation on the bridge of the nose because of the how tight she needs to have it on to have a good seal. She initially tried using it but then a cause much pain that she has to stop it. Unfortunately she does feel significant daytime drowsiness when she does not use her CPAP. I did have an N30 I AirTouch available small wide which she tolerated very well. Hopefully with this type of mask it will not cause any significant tender area over the bridge of the nose. Hopefully she can tolerated more. She is also complaining the pressures are too low. Therefore I did adjust the pressures and send also the order to her [employer], [facility]. From asthma standpoint she is doing well she continues use her respiratory therapy as prescribed. She has not had any flare-ups. Will follow-up in a year's time if she has any issues prior to that she will call for an earlier assessment. [facility] Medical History (Updated 01/20/25 @ 22:18 by Da Raya MD) Chronic allergic rhinitis Laryngitis [id number] syndrome CVA (cerebral vascular accident) DEMI on CPAP Dyspnea Chest pressure Asthma Surgical History History of gastric bypass History of left knee surgery History of hysterectomy Family History Mother Breast cancer HTN (hypertension) Father Kidney disease HTN (hypertension) Maternal Uncle Diabetes Son Diabetes Social History Alcohol intake: never Patient Tobacco Use Status: Never used Tobacco Review of Systems Const Denies chills, Denies fatigue, Denies fever(s), Denies weight gain and Denies weight loss ENT Denies dizziness, Denies lip swelling and Denies tongue swelling Card Denies chest pain, Denies leg edema, Denies lightheadedness, Denies palpitations, Denies dyspnea on exertion, Denies orthopnea and Denies other Resp Denies cough and Denies dyspnea on exertion GI Denies hematochezia and Denies change in stool character Musc Denies abnormal gait, Denies muscle weakness, Denies numbness, Denies radiating pain into limb and Denies tingling Neuro Denies abnormal gait, Denies dizziness, Denies numbness and Denies tingling Psych Denies no additional complaints Endo Denies fatigue and Denies palpitations Dillon/Lymph Denies easy bleeding and Denies lymphadenopathy Aller/Immun Denies lip swelling and Denies tongue swelling Physical Exam Vital Signs: Last Vital Signs Pulse 59 02/09/25 10:09 BP 144/82 H 02/09/25 10:09 Pulse Ox 100 02/09/25 10:09 Oxygen Delivery Method Room Air 02/09/25 10:09 BMI result Body Mass Index 44.8 Const General: alert Neck Neck: Yes normal visual inspection, Yes full ROM and Yes no lymphadenopathy Chest Chest palpation & inspection: normal inspection of the chest Resp Effort & Inspection: normal respiratory effort Auscultation: diminished lung sounds Cardio Rate: regular rate Rhythm: regular rhythm Heart sounds: S1 normal heart sound present and S2 normal heart sound present GI Palpation (GI): Soft to palpation and nontender Auscultation: normal bowel sounds Skin General skin exam: rashes and/or lesions noted Assessment & Plan Assessment & Plan (1) DEMI on CPAP: Code(s): G47.33 - Obstructive sleep apnea (adult) (pediatric); Z99.89 - Dependence on other enabling machines and devices Category: Medical (2) Asthma: Code(s): J45.909 - Unspecified asthma, uncomplicated Category: Medical Qualifiers: Asthma complication type: uncomplicated Asthma persistence: persistent Asthma severity: moderate Qualified Code(s): J45.40 - Moderate persistent asthma, uncomplicated (3) Dyspnea: Code(s): R06.00 - Dyspnea, unspecified Category: Medical Qualifiers: Dyspnea type: dyspnea on exertion Qualified Code(s): R06.00 - Dyspnea, unspecified (4) Chronic allergic rhinitis: Code(s): J30.9 - Allergic rhinitis, unspecified Category: Medical Plan contiue Trelegy OWEN as needed neti bottle daily continue Astelin nasal spray continue singulair continue Claritin HOB elevated continue CPAP therapy, adjusted 7-16, trial N30i airtouch SW (Regional) nebulizer follow-up in 8-12 months Coding Level of Care Code Est Pt Level 4 (09502) Diagnoses DEMI on CPAP G47.33; Z99.89 Moderate persistent asthma without complication J45.40 Asthma complication type: uncomplicated Asthma persistence: persistent Asthma severity: moderate Dyspnea on exertion R06.00 Dyspnea type: dyspnea on exertion Chronic allergic rhinitis J30.9 Time Spent (min) 17
--- OUTSIDE RECORDS SUMMARY | 2025-02-09 10:31 | XMS_ITS ---
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 Name Role Phone Yovanny Noel Primary Care Provider Allergies Allergen (clinical drug ingredient) Drug/Non Drug Allergy documented on EMR Reaction Allergy Type Onset Date Status No Known Drug Allergy Unknown Drug Allergy Active REASON FOR VISIT Postnasal drip, Asthma, Goiter, Hypertension, Lumbar radiculopathy, Marked obesity, Depression, GERDCKDIII Medications Medication SIG (Take, Route, Frequency, Duration) [...] Date Provider Diagnosis Yovanny Noel III, MD [address] [place] [address] [place] [address] 01/14/2025 Yovanny Noel Asthma J45.909 ; Oth er and unspecified hyperlipidemia E78.5 ; Nontoxic uninodular goiter E04.1 ; Former smoker Z87.891 ; Essential hypertension I10 ; Reactive depression F32.9 ; Vitamin D deficiency E55.9 ; Stage 3b chronic kidney disease N18.32 and Constipation K59.00 Assessments Encounter Date Diagnosis (ICD Code) Assessment Notes Treatment Notes Treatment Clinical Notes 01/14/2025 Asthma (ICD-10 - J45.909) She has bbeen free of asthma lately. There was no wheezing today. She was breathing room air comfortably. Current therapy was continued. 01/14/2025 Other and unspecified hyperlipidemia (ICD-10 - E78.5) Comprehensive blood work with a fasting lipid profile is being done periodically.The most recent total cholesterol was within normal limits. 01/14/2025 Nontoxic uninodular goiter (ICD-10 - E04.1) Her thyroid is not palpable today. She appears to be euthyroid. This problem will be followed closely. 01/14/2025 Former smoker (ICD-10 - Z87.891) She is highly motivated to not smoke. We have discussed a strategy for maintenance of abstinence in times of stress and illness. 01/14/2025 Essential hypertension (ICD-10 - I10) Her blood pressure has come under control. She is being evaluated by nephrology with metanephrines. An ultrasound of her renal arteries did not show renal artery stenosis. We have discussed weight reduction and sodium restriction. Panorex. We will continue to reduce the blood pressure lifestyle modification. 01/14/2025 Reactive depression (ICD-10 - F32.9) She has been taking citalopram only intermittently. She will continue to take it on a daily basis. Follow-up visit near future was scheduled. 01/14/2025 Vitamin D deficiency (ICD-10 - E55.9) She is continuing on vitamin D supplementation. 01/14/2025 Stage 3b chronic kidney disease (ICD-10 - N18.32) Her current GFR is 38. She is under the care of nephrology. Her hydrochlorothiazide was stopped. Her blood pressure was reasonable today. 01/14/2025 Constipation (ICD-10 - K59.00) I gave her [...] OV Provider Name:Yovanny Noel, 02/18/2025 10:30:00 AM, [address] [place] [address] [address], [place], [address], Provider Name:Yovanny Noel, 10/05/2025 10:30:00 AM, [address] [place] [address] [address], [place], [phone], Progress Notes * Lynnette MCGILL TDOB: [birth year] (64 yo F)Acc No.[id number]:01/14/2025 Patient:?Lynnette MCGILL Provider:?Yovanny Noel MD :1960???Age:64 Y???Sex:Female D ate:01/14/2025 Address:[address] [place] [id number] Subjective: * Chief Complaints: * ???Postnasal dripAsthmaGoite rHypertensionLumbar radiculopathyMarked obesityDepressionGERDCKDIII * HPI: ???:? She has been to see October passenger brakeman and had indirect laryngoscopy and a thorough evaluation.? She was given some medication the name of which she does not know.? She says the medication did nothing for her but she can sleep better.? The medication was a nasal spray.? She says she is breathing well without asthma now.? She is still constipated have been taken senna every other day.? I have told her to take it once or twice a day and to add MiraLAX daily.? Follow-up appointment was given to her.? She was told to call me if the symptoms worsen. ?Telehealth?Location of provider rendering services:?{...} [address] [facility] [address] ?Location of patient:?address listed in demographics for today's visit ?Patient identification confirmed using:?Name, ?Telehealth method:?Telephone only. Patient not visible to care provider. ?Consent:?Patient verbally consented to treatment, Patient verbally consented to billing insurance company, Patient informed of any privacy concerns related to method of visit ?Total time spent with patient (mins)?15 * ROS:?General/Constitutional:?pain?only normal aches and pains.?Chills?denies.?Fatigue?admits.?Fever?denies.?ENT:?Decreased hearing?denies.?Respiratory:?Cough?non-productive.?Cardiovascular:?Chest pain with exertion?denies.?Dyspnea on exertion?denies.?Shortness of breath?with exertion.?Gastrointestinal:?Constipation?associated with rectal bleeding.?Decreased appetite?denies.?Diarrhea?denies.?Heartburn?controlled with medications.?Nausea?denies.?Rectal bleeding?denies.?Vomiting?denies.?Hematology:?bruising?denies.?petechiae?denies.?Swollen glands?none have been noted.?Genitourinary:?Frequent urination?denies.?Musculoskeletal:?Muscle aches?denies.?Painful joints?denies.?Sciatica?denies.?Weakness?denies.?Skin:?Itching?denies.?Rash?denies.?Skin lesion(s)?denies.?Neurologic:?Difficulty speaking?denies.?Dizziness?denies.?Headache?denies.?Low back pain?denies.?Psychiatric:?Depressed mood?which is mild.? * Medical History:? * Surgical History:?hysterecto my [...] son(s) , 2 daughter(s) - healthy. .? * Social History:?Tobacco Use:?Tobacco Control (Standard)?Tobacco use:?Former smoker ?How long has it been since you last smoked??Greater than 10 years ?Additional Findings: Tobacco non-user?Ex-cigarette smoker ???She is single and working at a local [employer]. She has four children, 2 of each, Emir, Fuentes, Benson, Marie. She was born in [place]. * Medications:?TakinghydrALAZI NE HCl 50 MG Tablet 1 tablet with food Orally Four times a day Metoprolol Tartrate 100 MG Tablet Take 1 tablet by mouth twice daily with food Pantoprazole Sodium 20 MG Tablet Delayed Release [...] Tablet 1 tablet Orally Once a day K- Tab 10 MEQ Tablet Extended Release 1 tablet [...] Tablet 1 tablet Orally every 12 hrs Senna Laxative 8.6 MG Tablet 1 tablet Orally twice a day , stop date 06/27/2025Medication List reviewed and reconciled with the patientTaking hydrALAZINE HCl 50 MG Tablet 1 tablet with food Orally Four times a day Taking Metoprolol Tartrate 100 MG Tablet Take 1 tablet by mouth twice daily with food Taking Pantoprazole Sodium 20 MG Tablet Delayed [...] 1 tablet Orally every 12 hrs Taking Senna Laxative 8.6 MG Tablet 1 tablet Orally twice a day , stop date 06/27/2025Medication List reviewed and reconciled with the patient * Allergies:?No Known Drug All ergyno[Allergies Verified] Objective: * Vitals:? Assessment: * Assessment: 1.?Asthma - J45.909 (Primary )???Notes :She has bbeen free of asthma lately. There was no wheezing today. She was breathing room air comfortably. Current therapy was continued.???2.?Other and unspecified hyperlipidemia - E78.5???Notes :Comprehensive blood work with a fasting lipid profile is being done periodically.The most recent total cholesterol was within normal limits.???3.?Nontoxic uninodular goiter - E04.1???Notes :Her thyroid is not palpable today. She appears to be euthyroid. This problem will be followed closely.???4.?Former smoker - Z87.891???Notes :She is highly motivated to not smoke. We have discussed a strategy for maintenance of abstinence in times of stress and illness.???5.?Essential hypertension - I10???Notes :Her blood pressure has come under control. She is being evaluated by nephrology with metanephrines. An ultrasound of her renal arteries did not show renal artery stenosis. We have discussed weight reduction and sodium restriction. Panorex. We will continue to reduce the blood pressure lifestyle modification.???6.?Reactive depression - F32.9???Notes :She has been taking citalopram only intermittently. She will continue to take it on a daily basis. Follow-up visit near future was scheduled.???7.?Vitamin D deficiency - E55.9???Notes :She is continuing on vitamin D supplementation.???8.?Stage 3b chronic kidney disease - N18.32???Notes :Her current GFR is 38. She is under the care of nephrology. Her hydrochlorothiazide was stopped. Her blood pressure was reasonable today.???9.?Constipation - K59.00???Notes :I gave her instructions to consume one [employer] brands fairly with every breakfast. She will take Senokot twice a day. A followup was arranged.??? Plan: * Treatment: 2.?Others? Continue Pantoprazole Sodium [...] dangers of tobacco use and urged to quit.?01/14/2025 * Follow Up:?5 weeks (Reason: OV) * Images: * Sign off status: Completed true * Provider:?Yovanny Noel MD Date:?12/30 Generated for Noreen fonseca/Joel/Randysmitting on:?02/09/2025 10:31 AM EDT History and Physical Notes * HPI (History of Present Illness) Category Sub-Category Detail Notes Telehealth Location of [facility] rendering services:: {...} [address] [place], [place] [id number] Location of patient:: address listed in demographics [...]
--- OUTSIDE RECORDS SUMMARY | 2025-02-09 10:31 | XMS_ITS ---
Author Organization Yovanny Noel III, MD Address [address] [place] [address] Care Team Providers Care Qc Manager Name Role Phone Yovanny Noel Primary Care [...] Date Provider Diagnosis Yovanny Noel III, MD [address] [place] [address] [place] [address] 12/29/2024 Yovanny Noel Asthma J45.909 ; Mor [...] Telehealth Provider Name:Yovanny Noel, 02/18/2025 10:30:00 AM, [address] [place] [address] [place] [address], [place], [address], Provider Name:Yovanny oNel, 10/05/2025 10:30:00 AM, [address] [place] [address] [address], [place], [address], Progress Notes * Lynnette MCGILL TDOB: [birth year] (64 yo F)Acc No.[id number]:12/29/2024 Progress Notes Patient:Lynnette BARRIGA Provider:?Yovanny Noel MD :1960???Age:64 Y???Sex:Female D ate:12/29/2024 Address:[address] [place], [place] [phone] Subjective: * Chief Complaints: * ???Drainage in [...] is single and working at a local [employer]. She has four children, 2 of each, Emir, Fuentes, Benson, Marie. She was born in [place]. * Medications:?TakingPantopraz ole Sodium 20 MG Tablet [...] - 12/24/2024 11:13 AM)?ValueReference Range?B Type Natriuretic Ntdpfqm55<100 - pg/mL * Examination: ???General Examination: ?GENERAL [...] Noel MD Date:?12/01 Generated for Noreen fonseca/Joel/eTjosesmitting on:?02/09/2025 10:31 AM EDT History and Physical [...]
--- OUTSIDE RECORDS SUMMARY | 2025-02-09 10:31 | XMS_ITS | Data Portability ---
Author Organization [place] - [facility], Allergy Address [address] [address] Care Team Providers Care Assault Amphibious Vehicle Crewman Name Role Phone GHAZALA COX Primary Care [...] review CT sinus which was performed at [facility] 10/07/24. Reviewed with the patient [...] CT, maxillofa cial, w/o contrast 2023 024 [email or web address] [facility], [address] [place] [address], [place] [address], [place], [address], 10/08/2024 15:43:52 Medication Orders ipratropi um bromide 21 mcg (0.03 %) nasal spray 2024 025 [facility], [address] [facility], [place], [address], 12/31/2024 08:50:35 Patient TargetsNo targets recorded. Patient Instructions Encounter Date Encounter Id Patient Instructions Last Modified By Organization Details Last Modified Time 11/12/2024 [id number] Nursing Documentation for Allergy Testing: Ordering Provider [...] ? ? ? Written by: {{KOSTAS Rodriguez, [facility]* Rosarioleona Wilcox}} shana Not available 11/12/2024 10:43:53 12/31/2024 [id number] Patient appears to have nonallergic/vasom otor rhinitis [...] >100. 00 Very High Not Available [facility] ([facility]) [address] [place], [address], 11/14/2024 12:20:42 11/12/1911/14/2024 ALLER GENS, ZONE 1 F270-VzU D pteronyssinu s <0.10 kU/L class 0 Not Available [facility] ([facility]) [address] [place], [address], 11/14/2024 12:20:42 11/12/19 25 11/14/2024 ALLER GENS, ZONE 1 D162-ApT D farinae <0.10 kU/L class 0 Not Available [facility] ([facility]) [address] [facility], [place], [address], 11/14/2024 12:20:42 11/12/19 25 11/14/2024 ALLER GENS, ZONE 1 K351-GsG CAT dander <0.10 kU/L class 0 Not Available [facility] ([facility]) [address] [facility], [place], [address], 11/14/2024 12:20:42 11/12/19 25 11/14/2024 ALLER GENS, ZONE 1 E694-SoY dog dander <0.10 kU/L class 0 Not Available [facility] ([facility]) [address] [facility], [place], [address], 11/14/2024 12:20:42 11/12/19 25 11/14/2024 ALLER GENS, ZONE 1 c336-TkP bermuda grass <0.10 kU/L class 0 Not Available [facility] ([facility]) [address] [facility], [place], [address], 11/14/2024 12:20:42 11/12/19 25 11/14/2024 ALLER GENS, ZONE 1 u762-MfV bluegrass, [place] 0.14 kU/L class 0/I abnormal Not Available [facility] ([facility]) [address] [facility], [place], [address], 11/14/2024 12:20:42 11/12/19 25 11/14/2024 ALLER GENS, ZONE 1 i102-OaF bahia grass <0.10 kU/L class 0 Not Available [facility] ([facility]) [address] [place], [address], 11/14/2024 12:20:42 11/12/19 25 11/14/2024 ALLER GENS, ZONE 1 S886-ReR cockroach, spanish <0.10 kU/L class 0 Not Available [facility] ([facility]) [address] [place], [address], 11/14/2024 12:20:42 11/12/19 25 11/14/2024 ALLER GENS, ZONE 1 Y192-RyU penicillium chrysogen <0.10 kU/L class 0 Not Available [facility] ([facility]) [address] [place], [address], 11/14/2024 12:20:42 11/12/19 25 11/14/2024 ALLER GENS, ZONE 1 L901-KoQ cladosporium herbarum <0.10 kU/L class 0 Not Available [facility] ([facility]) [address] [place], [address], 11/14/2024 12:20:42 11/12/19 25 11/14/2024 ALLER GENS, ZONE 1 H953-GnU aspergillus fumigatus <0.10 kU/L class 0 Not Available [facility] ([facility]) [address] [place], [address], 11/14/2024 12:20:42 11/12/19 25 11/14/2024 ALLER GENS, ZONE 1 B158-ZcX mucor racemosus <0.10 kU/L class 0 Not Available [facility] ([facility]) [address] [place], [address], 11/14/2024 12:20:42 11/12/19 25 11/14/2024 ALLER GENS, ZONE 1 T100-LxS alternaria alternata <0.10 kU/L class 0 Not Available [facility] ([facility]) [address] [place], [address], 11/14/2024 12:20:42 11/12/19 25 11/14/2024 ALLER GENS, ZONE 1 D955-XtT stemphylium herbarum <0.10 kU/L class 0 Not Available [facility] ([facility]) [address], [place], [address], 11/14/2024 12:20:42 11/12/19 25 11/14/2024 ALLER GENS, ZONE 1 F001-FzZ common silver birch 0.12 kU/L class 0/I abnormal Not Available [facility] ([facility]) [address], [place], [address], 11/14/2024 12:20:42 11/12/19 25 11/14/2024 ALLER GENS, ZONE 1 S349-RrB oak, white <0.10 kU/L class 0 Not Available [facility] ([facility]) [address], [place], [address], 11/14/2024 12:20:42 11/12/19 25 11/14/2024 ALLER GENS, ZONE 1 P976-CwL elm, spanish <0.10 kU/L class 0 Not Available [facility] ([facility]) [address], [place], [address], 11/14/2024 12:20:42 11/12/19 25 11/14/2024 ALLER GENS, ZONE 1 C686-VxO carmelita, white <0.10 kU/L class 0 Not Available [facility] ([facility]) [address] [facility], [place], [address], 11/14/2024 12:20:42 11/12/19 25 11/14/2024 ALLER GENS, ZONE 1 C841-CoK maple/box elder <0.10 kU/L class 0 Not Available [facility] ([place] [facility]) [address], [place], [address], 11/14/2024 12:20:42 11/12/19 25 11/14/2024 ALLER GENS, ZONE 1 W701-GfF hazelnut tree <0.10 kU/L class 0 Not Available [facility] ([place] [facility]) [address] [facility] [place], [address], 11/14/2024 12:20:42 11/12/19 25 11/14/2024 ALLER GENS, ZONE 1 T853-BrY hickory, white <0.10 kU/L class 0 Not Available [facility] ([place] [facility]) [address] [facility], [place], [address], 11/14/2024 12:20:42 11/12/19 25 11/14/2024 ALLER GENS, ZONE 1 S081-AgF white mulberry <0.10 kU/L class 0 Not Available [facility] ([place] [facility]) [address] [facility], [place], [address], 11/14/2024 12:20:42 11/12/19 25 11/14/2024 ALLER GENS, ZONE 1 H441-SlJ cedar, mountain <0.10 kU/L class 0 Not Available [facility] ([place] [facility]) [address] [facility], [place], [address], 11/14/2024 12:20:42 11/12/19 25 11/14/2024 ALLER GENS, ZONE 1 N125-YlD ragweed, short 0.21 kU/L class 0/I abnormal Not Available [facility] ([place] [facility]) [address] [facility], [place], [address], 11/14/2024 12:20:42 11/12/19 25 11/14/2024 ALLER GENS, ZONE 1 P774-DuS mugwort <0.10 kU/L class 0 Not Available [facility] ([facility] [facility]) [address] [facility], [address], 11/14/2024 12:20:42 11/12/19 25 11/14/2024 ALLER GENS, ZONE 1 V715-QxE plantain, congolese <0.10 kU/L class 0 Not Available [facility] ([facility]) [address] [facility], [place], [address], 11/14/2024 12:20:42 11/12/19 25 11/14/2024 ALLER GENS, ZONE 1 F628-KsI pigweed, common <0.10 kU/L class 0 Not Available [facility] ([facility]) [address] [facility], [place], [address], 11/14/2024 12:20:42 11/12/19 25 11/14/2024 ALLER GENS, ZONE 1 Q686-IrE sheep sorrel <0.10 kU/L class 0 Not Available [facility] ([facility]) [address] [facility], [place], [address], 11/14/2024 12:20:42 11/12/19 25 11/14/2024 ALLER GENS, ZONE 1 T173-FyF nettle <0.10 kU/L class 0 Not Available [facility] ([facility]) [address] [facility], [place], [address], 11/14/2024 12:20:42 11/12/19 25 11/14/2024 IMMUN OGLOB ULIN E, TOTAL immunoglobul in E, total 2 IU/mL 6-495 below low normal Not Available [facility] ([facility]) [address] [facility], [place], [address], 11/14/2024 12:20:42 10/08/19 25 10/07/2024 CT, maxil lofac ial, w/o contr ast No observ ation record ed. [email or web address] [facility] [address] [place] [address], [address], 10/09/2024 09:16:23 10/08/19 25 10/07/2024 CT, maxil lofac ial, w/o contr ast No observ ation record ed. grancitelli [facility] [address] [facility] [address], [place], [address], 10/09/2024 09:16:23 10/08/19 25 10/07/2024 CT, maxil lofac ial, w/o contr ast No observ ation record ed. BARCODE [facility] [address] [facility] [address], [place], [address], 10/08/2024 16:03:22 11/12/19 25 mary metry testi ng* No observ ation record ed. [email or web address] Not Available 2024 18:02:42 Result Notes None recorded. Problems Name Problem SNOMED Code Status Onset Date Resolution Date Notes Provider Name and Address Organization Details Recorded Time Severe obesity 37150672039 104 Active 2020 Morbid (severe) obesity due to excess calories; Note: Date Diagnosed : 06/16/2021 11:31 AM (E66.01) Not Available [facility] 4 03:25:06 Obstructi ve sleep apnea syndrome 82262509 Active 2020 Obstructi ve sleep apnea (adult) (pediatri c); Note: Date Diagnosed : 06/16/2021 11:31 AM (G47.33) Not Available [facility] 4 03:25:07 Uncomplic ated asthma 912447021 Active 2020 Unspecifi ed asthma, uncomplic ated; Note: Date Diagnosed : 06/16/2021 11:31 AM (J45.909) Not Available [facility] 4 03:25:07 Allergic rhinitis caused by pollen 68465287 Active 2020 Allergic rhinitis due to pollen; Note: Date Diagnosed : 06/16/2021 11:31 AM (J30.1) Not Available [facility] 4 03:25:06 Chronic sinusitis 43231021 Active 2023 LILLIAM VELAZQUEZ PA-C [address] [place] [address], [place], [address] , [facility] - [facility] 4 11:00:07 Atypical facial pain 95788408 Active 2024 LILLIAM VELAZQUEZ PA-C [address], [place], [address] , [place] - [facility] 5 15:35:35 Allergic rhinitis 47933436 Active 2024 ETELVINA MARTIN, RMA [address], [place], [place], [address] , [place] - [facility] 5 09:19:15 Posterior rhinorrhe a 96409782 Active 2024 FER ZAVALA MD [address], [place], [address] , [place] - [facility] 5 08:49:08 Chronic rhinitis 65856787 Active 2024 FER ZAVALA MD [address], [place], [place], [address] , [place] - [facility] 5 08:49:14 Problem Notes None recorded. Procedures Surgical History Date Name Laterality Status Provider Name and Address Organization Details Recorded Time JMSNasal/Sinus Endoscopy completed LILLIAM VELAZQUEZ PA-C [address] [facility], [place], [address], [place] - [facility] 09/19/2024 12:23:56 Imaging Results Imaging Date Name Status LastModified by [facility] Details LastModified Time 10/07/2024 CT, maxillofacial, w/o contrast [facility] [address], [address], 10/09/2024 09:16:23 10/07/2024 CT, maxillofacial, w/o contrast [facility] [address], [address], 10/09/2024 09:16:23 10/07/2024 CT, maxillofacial, w/o contrast completed [facility] [address], [address], 10/08/2024 16:03:22 11/12/2024 spirometry testing* completed dplosky [...] mg tablet 12/31 completed Medicati on ID: [id number] B rand Name: lisset calhoun Send Method: [...] mg tablet 12/31 completed Medicati on ID: [id number] B rand Name: metoprol ol tartrate Send [...] mg capsule 11/12 completed Medicati on ID: [id number] B rand Name: gabapent in Send Method: [...] %) nasal spray active Medicati on ID: 398615 B rand Name: azelasti ne Send Method: [...] mg tablet 12/31 completed Medicati on ID: [id number] B rand Name: spironol actone S end [...] layed release 12/31 completed Medicati on ID: [id number] B rand Name: Prilosec OTC Send Method: [...] unit) capsule 12/31 completed Medicati on ID: [id number] B rand Name: Vitamin D3 Send Method: E-Prescr ibed Sub s Allowed: subs OK Medic ationGen ericName : Vitamin D3 Not Available Not Available Not Available Incruse Ellipta 62.5 mcg/actua tion powder for inhalatio n 12/31 completed Medicati on ID: [id number] B rand Name: Incruse Ellipta Send Method: E-Prescr ibed Sub s Allowed: subs OK Speci al Instruct ion: INHALE 1 PUFF BY MOUTH ONCE DAILY Me dication GenericN judith: Incruse Ellipta Not Available Not Available Not Available Breo Ellipta 200 mcg-25 mcg/dose powder for inhalatio n 12/31 completed Medicati on ID: [id number] B rand Name: Breo Ellipta Send Method: [...] Details Last Updated DateTime 12/31/2024 165.1 cm 578516.9 g Susan Crum [place] - [facility] 12/31/2024 08:32:27 Date Recorded Body weight Body mass index (BMI) Body height Provider Name and Address Organization Details Last Updated DateTime 09/19/2024 340252.27 g 46.4 kg/m2 165.1 cm Jessica Umanzor [place] - [facility] 09/19/2024 10:19:27 Date Recorded Body height Body mass index (BMI) Body weight Provider Name and Address Organization Details Last Updated DateTime 11/04/2024 165.1 cm 45.8 kg/m2 132837.9 g Emilyerika Ba [facility] 11/04/2024 14:55:31 Date Recorded Body height Body mass index (BMI) Body weight Oxygen saturation Oxygen saturation in Arterial blood by Pulse oximetry Heart rate Systolic blood pressure Diastolic blood pressure Systolic blood pressure Diastolic blood pressure Provider Name and Address Organization Details Last Updated DateTime 165.1 cm 45.8 kg/m2 681202. 9 g 98 % 98 % 76 /min 160 mm[Hg] 94 mm[Hg] 172 mm[Hg] 96 mm[Hg] [facility], [address], [address], [facility] 10:14:58 Social History Question Answer Notes LastModified by Organizat ion Details LastModified Time Tobacco Smoking Status Former Smoker [facility] [address], [address], [facility] 11/12/2024 09:17:45 When Did You Quit [...] Disorder N Anesthesia Complications N Heart Attack (DC) N Other Skin Condition N Diabetes N [...] SNOMED-CT Code Diagnosis ICD10 Code Diagnosis Note [id number] FER ZAVALA MD [facility] [address] [address] 09/19/2024 10:02:24 09/19/2024 11:03:03 Allergic rhinitis caused by pollen 13641744 J30.1 Chronic sinusitis 447736 00 J32.9 [id number] LILLIAM VELAZQUEZ PA-C [facility] [address] [address] 11/04/2024 14:44:00 11/04/2024 15:08:34 Allergic rhinitis caused by pollen 79817927 J30.1 Atypical facial pain 713 [address]8587 G50.1 76793 [facility], [facility] Allergy [address] [place] [address] 11/12/2024 08:46:13 11/12/2024 10:45:34 Allergic rhinitis caused by pollen 19990679 J30.1 [id number] FER ZAVALA MD [facility] [address] [address] 12/31/2024 08:26:16 12/31/2024 08:52:00 Obstructive sleep apnea syndrome 99914784 G47.33 Posterior rhinorrhea 758 93858 R09.82 Chronic rhinitis 3409269 6 J31.0 Health Concerns Section Related Observation LastModified by Organization Detai ls LastModified Time None Recorded Concern Status LastModified by Organization Details LastModified Time None Recorded Advance Directives Directive None Recorded Payers Insurance Date Sequence Insurance Name Policy Number Policy Mei Covered Member ID Mei Member ID Guarantor Name 01/07/2025 1 [place] [employer] Lynnette Mcgill [id number] Lynnette Mcgill 01/07/2025 2 [place] [facility] Lynnette Mcgill [id number] Lynnette Mcgill Notes Date Note Type Note Provider Name and Address Organization Details Recorded Time 09/19/2024 text/html 63 year old fema le presents reporting left sided nasal congestion and [...] left upper molars. FER RIVERA MD [address], [place], [address], [facility] - [facility] 09/19/2024 12:45:42 11/04/2024 text/html 63 year old kalin lianres presents to review CT sinus which was performed at [facility] 10/07/24. She reports that her left maxillary pain is improving. She has allergy tested scheduled. SHRAVAN JUDD MD [address] [place] [address], [address], [facility] - [facility] 11/06/2024 08:24:49 11/12/2024 text/html Pt presents for allergy testing. Due to elevated bp due to holding her beta ghislaine and other 3 meds and having poor pfts Dr. Hernandez wanted pt to have RAST and to follow up with Dr. Rivera to figure out next steps ETELVINA LANCASTER Leona [address] [facility], [place], [address], [facility] - [facility] 11/12/2024 10:45:27 12/31/2024 text/html Patient with persistent sensation of postnasal drainage refractory to fluticasone and azelastine. CT of sinuses was negative. Allergy testing via RAST was basically negative with the IgE total being 2 and trace positivity to bluegrass birch and ragweed. She feels the drainage is coming from her ears down into the throat. Using CPAP -6hours per night FER RIVERA MD [address], [place], [address], [facility] - [facility] 12/31/2024 08:51:29 OBGyn Episode No OBEpisode recorded.
--- OUTSIDE RECORDS SUMMARY | 2025-02-09 10:31 | XMS_ITS | Clinical Summary ---
Author Organization [facility] Address [address] [place] [address] Phone Care Team Providers Care Manufacturing Engineer Machining Name Role Phone Yovanny Noel MD Primary Care Provider [phone] Allergies Active Allergy Reactions Criticality Noted Date [...] DAILY. STOP POTASSIUM SUPPLEMENT. 1 Active Tiotropium [place] Monohydrate 1.25 MCG/ACT aerosol solution Inhale 1 [...] in the evening. 270 tablet 3 4 Active Active Problems Problem Noted Date Diagnosed [...] Obstructive sleep apnea syndrome 02/07/2018 Overview (03/26/2021): [facility] Home Sleep Apnea Test: Date 04/30/2019; [...] this topic Insurance Medicare Medicaid [place] Medicaid [place] Medicare Care Teams Manufacturing Engineer Machining Relationship Specialty Start Date End Date Yovanny Noel MD [address] [place] [address] , [address] [place] [address] PCP - General Medical Oncology 01/18/24
--- OUTSIDE RECORDS SUMMARY | 2025-02-09 10:31 | XMS_ITS ---
Author Organization Yovanny Noel III, MD Address [address] [place] [address] Care Team Providers Care Director Radio Name Role Phone Yovanny Noel Primary Care Provider Allergies Allergen (clinical drug ingredient) Drug/Non Drug Allergy documented on EMR Reaction Allergy Type Onset Date Status No Known Drug Allergy Unknown Drug Allergy Active Reason For Referral Reason left leg pain Diagnosis 1 Pain of left lower e xtremity (M79.605) Referral Organization Yovanny Noel III, MD Referring Provider First Name Yovanny Referring Provider Last Name Sadie Referring Provider Speciality Internal M edicine Referred Organization [facility] Referred Provider Franklin Eason Referred Address [address] [place] [address],[place], [place],[id number], Referred Provider Specialty Vascular Fred meg General Notes Leatha Wood CMA 02/02 01:23:25 PM > called Vilma at Dr Eason office [phone] pt has appt for a vascular ultrasound at on 03/11/2025 at 10am pt then has appt with Dr Eason 03/17/2025 at 11:30am information about this appt mailed and called to patient Referral Priority Routine Referral Appointment Date 03/17/2025 REASON FOR VISIT Tingling and numbness left foot, Heradiation down left leg in every position, Asthma hypertension, Sleep apnea, Lumbar radiculopathy Medications Medication SIG (Take, Route, Frequency, Duration) Notes Start Date End Date Status Escitalopram Oxalate 20 MG 1 tablet Oral ly Once a day 12/29/2021 Active Combivent 18-103 MCG/ACT 2 puffs Inhalat ion Six times a day Active Advair Diskus 500-50 MCG/DOSE 1 puff Inh alation every 12 hrs Active Ibuprofen 800 MG 1 tablet Orally Thre e times a day 07/28/2016 Active Pregabalin 75 MG 1 capsule Orally Onc e a day for 30 days 01/27/2025 Active Flonase 50 MCG/ACT 1 spray in each nost ril Nasally Once a day 09/28/2023 Active Metoprolol Tartrate 100 MG Take 1 tablet by mouth twice daily with food Active Esomeprazole Magnesium 40 MG Take 1 caps ule by mouth once daily Active Pantoprazole Sodium 20 MG 1 tablet 1/2 t o 1 hour before morning meal Orally Once a day 10/27/2024 Active dexAMETHasone 2 MG 1 tablet Orally teic e a day for 14 days 01/27/2025 Active Senna Laxative 8.6 MG 1 tablet Orally tw ice a day 12/29/2024 Active dexAMETHasone 2 MG 1 tablet Orally ever y 12 hrs 10/21/2024 Active Lisinopril 40 MG Take 1 tablet by paras th once daily Active Clopidogrel Bisulfate 75 MG TAKE 1 TABLE T BY MOUTH ONCE DAILY Orally Once a day Active hydrALAZINE HCl 50 MG 1 tablet with food Orally Four times a day Active guaiFENesin-Codeine 100-10 MG/5ML 10 mL as needed Orally every 6 hrs 07/22/2024 Active Guaiatussin AC 100-10 MG/5ML 10 mL as needed Orally every 6 hrs As needed 07/22/2024 Active Lisinopril 20MG TAKE ONE TABLET BY MOUTH EVERY DAY Active Loratadine 10 MG 1 tablet Orally Once a day 07/22/2024 Active Meloxicam 15 MG Take 1 tablet by paras th once daily Active Simvastatin 40 MG Take 1 tablet by paras th in the evening Orally Once a day Active Gabapentin 300 MG 1 capsule Orally thr ee times a day 01/23/2023 Active Polyethylene Glycol 3350 17 GM 1 packet mixed with 8 ounces of fluid Orally Once a day Active Lisinopril 40 MG 1 tablet Orally Once a day 11/12/2023 Active Benzonatate 200 MG 1 capsule as needed Orally Three times a day 06/24/2024 Active K-Tab 10 MEQ 1 tablet with food Orally Once a day 02/15/2021 Active Furosemide 40 MG 1 tablet Orally Once a day 02/15/2021 Active Pregabalin 50 MG 1 capsule Orally Twi ce a day Active Cyclobenzaprine HCl 10 MG as directed Or ally three times a day 08/15/2022 Active amLODIPine Besylate 10 MG 1 tablet Orall y Once a day Active Montelukast Sodium 10 MG 1 tablet in the evening Orally Once a day Active Social History Tobacco Use: [...] Additional Findings: Tobacco non-user Ex-cigaret te smoker Problems Problem Type SNOMED Code ICD Code Onset Dates Problem Status W/U Status Risk Notes Problem [id number] Pain of left lower extremity (M79.605) Active confirmed Vital Signs Temperature 98.0 degrees Fahrenheit 01/28/20 25 Blood pressure systolic 140 mm Hg 01/28/20 25 Blood pressure diastolic 75 mm Hg 025 Heart Rate 77 /min 01/27/2025 Height 63 in 01/27/2025 Weight 267 lbs 01/27/2025 BMI 47.29 kg/m2 01/27/2025 Encounters Encounter Location Date Provider Diagnosis Yovanny Noel III, MD [address] [place] [address] [place] [address] 01/27/2025 Yovanny Noel Morbid obesity E66.0 1 ; Other and unspecified hyperlipidemia E78.5 ; Nontoxic uninodular goiter E04.1 ; Former smoker Z87.891 ; Essential hypertension I10 ; Asthma J45.909 ; CVA (cerebral vascular accident) I63.9 ; Sleep apnea in adult G47.30 ; Reactive depression F32.9 and Lumbar radiculopathy M54.16 Assessments Encounter Date Diagnosis (ICD Code) Assessment Notes Treat ment Notes Treatment Clinical Notes 01/27/2025 Morbid obesity (ICD-10 - E66.01) She continues to participate in the weight-loss program. She has lost 12 pounds since October 31, 2024. She will continue on her current therapies without change. She will be seen frequently to weigh her and form of support. 01/27/2025 Other and unspecified hyperlipidemia (ICD-10 - E78.5) Comprehensive blood work with a fasting lipid profile is being done periodically.The most recent total cholesterol was within normal limits. 01/27/2025 Nontoxic uninodular goiter (ICD-10 - E04.1) Her thyroid is not palpable today. She appears to be euthyroid. This problem will be followed closely. 01/27/2025 Former smoker (ICD-10 - Z87.891) She is highly motivated to not smoke. We have discussed a strategy for maintenance of abstinence in times of stress and illness. 01/27/2025 Essential hypertension (ICD-10 - I10) Her blood pressure has come under control. She is being evaluated by nephrology with metanephrines. An ultrasound of her renal arteries did not show renal artery stenosis. We have discussed weight reduction and sodium restriction. Panorex. We will continue to reduce the blood pressure lifestyle modification. 01/27/2025 Asthma (ICD-10 - J45.909) She has bbeen free of asthma lately. There was no wheezing today. She was breathing room air comfortably. Current therapy was continued. 01/27/2025 CVA (cerebral vascular accident) (ICD-10 - I63.9) She continues to have mild residual numbness in left side of her face but no muscle weakness is noted. She is able to conduct all of the activities of daily living. Her blood pressure is stable and her weight is dropping steadily. She is consuming a healthy, low-sodium diet. 01/27/2025 Sleep apnea in adult (ICD-10 - G47.30) She continues to use her CPAP. 01/27/2025 Reactive depression (ICD-10 - F32.9) She has been taking citalopram only intermittently. She will continue to take it on a daily basis. Follow-up visit near future was scheduled. 01/27/2025 Lumbar radiculopathy (ICD-10 - M54.16) She continues to have left-sided sciatica which she finds debilitating he does not wish to take narcotic medications. She has been to neurosurgery and WReevaluated for a neurostimulator and/or further injections was told there is not a surgical option. She does not wish to return to pain management. An ultrasound of the left leg has been ordered in order to be sure she does not have arterial disease or venous Plan Of Treatment Medication Medication Name Sig Start Date Stop Date Notes Escitalopram Oxalate 20 MG 1 tablet Orally Once a day 12/01 Combivent 18-103 MCG/ACT 2 puffs Inhalat ion Six times a day Advair Diskus 500-50 MCG/DOSE 1 puff Inh alation every 12 hrs Ibuprofen 800 MG 1 tablet Orally Thre e times a day 07/28/2016 Pregabalin 75 MG 1 capsule Orally Onc e a day for 30 days 01/27/2025 Flonase 50 MCG/ACT 1 spray in each nost ril Nasally Once a day 09/28/2023 Metoprolol Tartrate 100 MG Take 1 tablet by mouth twice daily with food Esomeprazole Magnesium 40 MG Take 1 caps ule by mouth once daily Pantoprazole Sodium 20 MG 1 tablet 1/2 t o 1 hour before morning meal Orally Once a day 10/27/2024 dexAMETHasone 2 MG 1 tablet Orally teic e a day for 14 days 01/27/2025 Senna Laxative 8.6 MG 1 tablet Orally tw ice a day 12/29/2024 dexAMETHasone 2 MG 1 tablet Orally ever y 12 hrs 10/21/2024 Lisinopril 40 MG Take 1 tablet by paras th once daily Clopidogrel Bisulfate 75 MG TAKE 1 TABLE T BY MOUTH ONCE DAILY Orally Once a day hydrALAZINE HCl 50 MG 1 tablet with food Orally Four times a day guaiFENesin-Codeine 100-10 MG/5ML 10 mL as needed Orally every 6 hrs 07/22/2024 Guaiatussin AC 100-10 MG/5ML 10 mL as ne eded Orally every 6 hrs 07/22/2024 Lisinopril 20MG TAKE ONE TABLET BY M OUTH EVERY DAY Loratadine 10 MG 1 tablet Orally Once a day 07/22/2024 Meloxicam 15 MG Take 1 tablet by paras th once daily Simvastatin 40 MG Take 1 tablet by paras th in the evening Orally Once a day Gabapentin 300 MG 1 capsule Orally thr ee times a day 01/23/2023 Polyethylene Glycol 3350 17 GM 1 packet mixed with 8 ounces of fluid Orally Once a day Lisinopril 40 MG 1 tablet Orally Once a day 11/12/2023 Benzonatate 200 MG 1 capsule as needed Orally Three times a day 06/24/2024 K-Tab 10 MEQ 1 tablet with food O rally Once a day 02/15/2021 Furosemide 40 MG 1 tablet Orally Once a day 02/15/2021 Pregabalin 50 MG 1 capsule Orally Twi ce a day Cyclobenzaprine HCl 10 MG as directed Or ally three times a day 08/15/2022 amLODIPine Besylate 10 MG 1 tablet Orally Once a day Montelukast Sodium 10 MG 1 tablet in the evening Orally Once a day Pending Test Test Name Order Date US LEG UNILATERAL ARTERY 01/27/2025 Referrals Referral Date Details 01/27/2025 01/27/2025, left leg pain, Franklin aEson, [address] [place] [address], [place], [place], [phone], Next Appt Details Follow Up: after ultrasound and appt with Dr Eason, Reason: OV review Ultrasound and appt with Dr Eason Provider Name:Yovanny Noel, 02/18/2025 10:30:00 AM, [address] [place] [address] [address], [place], [address], Provider Name:Yovanny Noel, 10/05/2025 10:30:00 AM, [address] [place] [address] [address], [place], [id number], Progress Notes * Lynnette SUMNER TDOB: [birth year] (64 yo F)Acc No.[id number]:01/27/2025 Progress Notes Patient:?Lynnette SUMNER T Provider:?Yovanny Noel MD :1960???Age:64 Y???Sex:Female D ate:01/27/2025 [facility] [id number] Subjective: * Chief Complaints: * ???Tingling and numbness lef t footHeradiation down left leg in every positionAsthma hypertensionSleep apneaLumbar radiculopathy * HPI: ???COVID-19 Screening:?Questions?Have you had any new onset fever, chills, cough, congestion, sore throat, shortness of breath, muscle aches??No ?She returns to the office with a continuing complaint of back pain and tingling and numbness in the left foot and paiin radiates down the left leg.? She has had no relief from injections in pain management.? She has had no relief from oral medication and refuses to take narcotics.? She has been to see Dr. Shaffer of Neurosurgery to see if he can help and. He was told surgery was not an option.He has no difficulty breathing. Her asthma is in remission.? She is trying to lose weight.? Her heartburn is well controlled. * ROS:?General/Constitutional:?pain?only normal aches and pains.?Chills?denies.?Fatigue?admits.?Fever?denies.?ENT:?Decreased hearing?denies.?Respiratory:?Cough?denies.?Cardiovascular:?Chest pain with exertion?denies.?Dyspnea on exertion?denies.?Shortness of breath?denies.?Gastrointestinal:?Constipation?occasional.?Decreased appetite?denies.?Diarrhea?denies.?Heartburn?occasional.?Nausea?denies.?Rectal bleeding?denies.?Vomiting?denies.?Hematology:?bruising?denies.?petechiae?denies.?Swollen glands?none have been noted.?Genitourinary:?Frequent urination?at night.?Musculoskeletal:?Muscle aches?denies.?Painful joints?denies.?Sciatica?denies.?Weakness?denies.?Skin:?Itching?denies.?Rash?denies.?Skin lesion(s)?denies.?Neurologic:?Difficulty speaking?denies.?Dizziness?denies.?Headache?denies.?Low back pain?denies.?Psychiatric:?Depressed mood?denies.? * Medical History:? * Surgical History:?hysterecto [...] is single and working at a local [employer]. She has four children, 2 of each, Emir, Fuentes, Benson, Marie. She was born in [place]. * Medications:?TakinghydrALAZI NE HCl 50 MG Tablet [...] Tablet 1 tablet Orally twice a day Medication List reviewed and reconciled [...] Tablet 1 tablet Orally twice a day Medication List reviewed and reconciled with the patient * Allergies:?No Known Drug All ergyno[Allergies Verified] Objective: * Vitals:?Ht: 63, Wt: 267, BMI :47.29, BP: 140/75, HR: 77, Temp: 98.0, Ht-cm: 160.02, Wt-k.11. * Examination: ???General Examination: ?GENERAL APPEARANCE:?pleasant, well nourished, well developed, in no acute distress, calm and relaxed, morbidly obese, woman.?HEAD:?atraumatic, normocephalic.?EYES:?eomi, perrla, anicteric, conjugate.?EARS:?normal.?NOSE:?septum intact.?ORAL CAVITY:?normal, unremarkable.?NECK/THYROID:?no jugular venous distention, no carotid bruit, thyroid normal.?LYMPH NODES:?no enlarged lymph nodes,spleen normal.?SKIN:?no suspicious lesions, anicteric.?HEART:?no clicks, gallops, murmurs, or rubs, regular rhythm, S1, S2 normal, no s3, or vascular bruits.?LUNGS:?, diminished breath sounds throughout, no wheezes, rales, rhonchi, good air movement.?BREASTS:?Not examined.?ABDOMEN:?bowel sounds normal, no ascites, no organomegaly, no mass, morbid obesity.?RECTAL EXAM:?not examined.?MUSCULOSKELETAL:?extremities unremarkable, no clubbing, cyanosis or edema.?PERIPHERAL PULSES:?normal.?NEUROLOGIC:?alert and oriented, cranial nerves 2-12 grossly intact, deep tendon reflexes 2+ symmetrical, motor strength normal upper and lower extremities, sensory exam intact.?PSYCH:?alert, oriented.? Assessment: * Assessment: 1.?Morbid obesity - E66.01 ( Primary)???Notes :She continues to participate in the weight-loss program. She has lost 12 pounds since October 31, 2024. She will continue on her current therapies without change. She will be seen frequently to weigh her and form of support.???2.?Other and unspecified hyperlipidemia - E78.5???Notes :Comprehensive blood [...] continue to reduce the blood pressure lifestyle modification.???6.?Asthma - J45.909???Notes :She has bbeen free of asthma lately. There was no wheezing today. She was breathing room air comfortably. Current therapy was continued.???7.?CVA (cerebral vascular accident) - I63.9???Notes :She continues to have mild residual numbness in left side of her face but no muscle weakness is noted. She is able to conduct all of the activities of daily living. Her blood pressure is stable and her weight is dropping steadily. She is consuming a healthy, low-sodium diet.???8.?Sleep apnea in adult - G47.30???Notes :She continues to use her CPAP.???9.?Reactive depression - F32.9???Notes :She has been taking citalopram only intermittently. She will continue to take it on a daily basis. Follow-up visit near future was scheduled.???10.?Lumbar radiculopathy - M54.16???Notes :She continues to have left-sided sciatica which she finds debilitating he does not wish to take narcotic medications.? She has been to neurosurgery and WReevaluated for a neurostimulator and/or further injections was told there is not a surgical option.? She does not wish to return to pain management.? An ultrasound of the left leg has been ordered? in order to be sure she does not have arterial disease or venous??? Plan: * Treatment: 2.?Others? Continue hydrALAZINE HCl Tablet, 50 MG, 1 tablet with food, Orally, Four times a day;?Continue Metoprolol Tartrate Tablet, 100 MG, Take 1 tablet by mouth twice daily with food;?Continue Pantoprazole Sodium Tablet Delayed Release, 20 MG, 1 tablet 1/2 to 1 hour before morning meal, Orally, Once a day;?Continue Esomeprazole Magnesium Capsule Delayed Release, 40 MG, Take 1 capsule by mouth once daily;?Continue Flonase Suspension, 50 MCG/ACT, 1 spray in each nostril, Nasally, Once a day;?Continue Escitalopram Oxalate Tablet, 20 MG, 1 tablet, Orally, Once a day;?Continue Advair Diskus Aerosol Powder Breath Activated, 500-50 MCG/DOSE, 1 puff, Inhalation, every 12 hrs;?Continue Combivent Aerosol, 18-103 MCG/ACT, 2 puffs, Inhalation, Six times a day;?Continue Ibuprofen Tablet, 800 MG, 1 tablet, Orally, Three times a day;?Continue Montelukast Sodium Tablet, 10 MG, 1 tablet in the evening, Orally, Once a day;?Continue amLODIPine Besylate Tablet, 10 MG, 1 tablet, Orally, Once a day;?Continue Furosemide Tablet, 40 MG, 1 tablet, Orally, Once a day;?Continue K-Tab Tablet Extended Release, 10 MEQ, 1 tablet with food, Orally, Once a day; Continue Cyclobenzaprine HCl Tablet, 10 MG, as directed, Orally, three times a day;?Continue Pregabalin Capsule, 50 MG, 1 capsule, Orally, Twice a day;?Continue Gabapentin Capsule, 300 MG, 1 capsule, Orally, three times a day;?Continue Simvastatin Tablet, 40 MG, Take 1 tablet by mouth in the evening, Orally, Once a day;?Continue Lisinopril Tablet, 40 MG, 1 tablet, Orally, Once a day;?Continue Polyethylene Glycol 3350 Packet, 17 GM, 1 packet mixed with 8 ounces of fluid, Orally, Once a day;?Continue Benzonatate Capsule, 200 MG, 1 capsule as needed, Orally, Three times a day;?Continue Meloxicam Tablet, 15 MG, Take 1 tablet by mouth once daily;?Continue Loratadine Tablet, 10 MG, 1 tablet, Orally, Once a day;?Continue Guaiatussin AC Syrup, 100-10 MG/5ML, 10 mL as needed, Orally, every 6 hrs As needed;?Continue guaiFENesin-Codeine Solution, 100-10 MG/5ML, 10 mL as needed, Orally, every 6 hrs;?Continue Lisinopril Tablet, 20MG, TAKE ONE TABLET BY MOUTH EVERY DAY;?Continue Clopidogrel Bisulfate Tablet, 75 MG, TAKE 1 TABLET BY MOUTH ONCE DAILY, Orally, Once a day;?Continue dexAMETHasone Tablet, 2 MG, 1 tablet, Orally, every 12 hrs;?Continue Senna Laxative Tablet, 8.6 MG, 1 tablet, Orally, twice a day;?Start dexAMETHasone Tablet, 2 MG, 1 tablet, Orally, teice a day, 14 days, 28, Refills 1;?Start Pregabalin Capsule, 75 MG, 1 capsule, Orally, Once a day, 30 days, 30 Capsule, Refills 3.? Referral To:Franklin Eason??Vascular Surgery ?Reason:left leg pain * Imaging:? * ?Imaging: US LEG UNILATE RAL ARTERY * Procedure Codes:? * Preventive Medicine:? ??Counseling:?Care [...] dangers of tobacco use and urged to quit.?01/27/2025 * Follow Up:?after ultrasound and appt with Dr Eason (Reason: OV review Ultrasound and appt with Dr Eason) * Images: * Sign off status: Completed true * Provider:?Yovanny Noel MD Date:?12/31 Generated for Noreen fonseca/Joel/eTransmitting on:?02/09/2025 10:31 AM EDT History and Physical [...] anicte noa, conjugate EARS: normal NOSE: septum intact NECK/THYROID: no jugular venous di stention, no carotid bruit, thyroid normal HEART: no clicks, gallops, murmurs, or rubs, regular rhythm, S1, S2 normal, no s3, or vascular bruits LUNGS: , diminished breath sounds throughout, no wheezes, rales, rhonchi, good air movement ABDOMEN: bowel sounds normal, no ascites, no organomegaly, no mass, morbid obesity NEUROLOGIC: alert and oriented, cranial nerves 2-12 grossly intact, deep tendon reflexes 2+ symmetrical, motor strength normal upper and lower extremities, sensory exam intact SKIN: no suspicious lesion s, anicteric PERIPHERAL PULSES: normal BREASTS: Not examined MUSCULOSKELETAL: extremities unremark able, no clubbing, cyanosis or edema LYMPH NODES: no enlarged lymph no andre,spleen normal RECTAL EXAM: not examined PSYCH: alert, oriented ORAL CAVITY: normal, unremarkable Consultation Request Notes Referral Date Referring Provider Referred Provider Not tamie 01/27/2025 Yovanny Noel Sandip left leg pain
--- OUTSIDE RECORDS SUMMARY | 2025-02-09 10:31 | XMS_ITS | Patient Health Record ---
Author Organization Yovanny Noel III, MD Address [address] [place] [address] Care Team Providers Care Finisher Special Stocks Name Role Phone Yovanny Noel Primary Care Provider Allergies Allergen (clinical drug ingredient) Drug/Non Drug Allergy documented on EMR Reaction Allergy Type Onset Date Status No Known Drug Allergy Unknown Drug Allergy Active Results Component Value Reference Range Notes URINE DIP STICK Reviewed date:10/02/2024 10:22:55 AM [...] Diff Reviewed date:04/22/2024 05:03:47 PM Interpretation: Performing Lab:[address] [address] Notes/Report: White Blood Count 5.3 4.8-10.8 X10*3/uL [...] Panel Reviewed date:04/22/2024 05:03:47 PM Interpretation: Performing Lab:[address] [address] Notes/Report: Sodium 143 135-145 mmol/L Potassium 4.0 3.3-5.1 mmol/L Chloride 115 96-108 mmol/L Carbon Dioxide 20 22-29 mmol/L Anion Gap 12 12-20 Blood Urea Nitrogen 27 9-16 mg/dL Creatinine 1.40 0.5-1.4 mg/dL Estimated Glomerular Filt Rate 38 NOTE: For -Icelandic individuals, multiply the result by 1.210. Chronic Kidney Disease: Estimated GFR < 60 mL/min/1.73m2 Severe Kidney Disease: Estimated GFR < 15 mL/min/1.73m2 Glucose Random 85 60-115 mg/dL Calcium 10.0 8.4-10.2 mg/dL MAMMOGRAM DIGITAL BILATERAL SCREEN Reviewed date:10/07/2024 04:03:16 PM Interpretation:undefined Performing Lab: Notes/Report: undefined Urinalysis and Microscopic Reviewed date:05/29/2024 12:31:16 PM Interpretation: Performing Lab:[address] [address] Notes/Report: Color Urine Yellow Appearance Urine Turbid PH 5.5 5.0-9.0 Glucose Urine UA Negative Negative mg/dL Urine Blood Negative Negative Specific [place] - Urine 1.025 1.005-1.025 Urine Protein Negative Neg-Trace mg/dL Urine Ketones Negative Negative mg/dL Nitrite Urine Negative Negative Leukocyte Esterase Urine Moderate (2+) Negative RBC Urine 0-2 0-2 /HPF WBC Urine 21-50 0-5 /HPF Squamous Epithelial Cell Urine >20 0-2 /HPF Bacteria Urine 4+ None Seen Hyaline Casts Urine 3-5 0-2 /LPF Electrolytes Reviewed date:05/29/2024 12:31:16 PM Interpretation: Performing Lab:[address] [address] Notes/Report: Sodium 142 135-145 mmol/L Potassium 4.3 3.3-5.1 mmol/L Chloride 113 96-108 mmol/L Carbon Dioxide 24 22-29 mmol/L Anion Gap 9 12-20 Blood Urea Nitrogen Reviewed date:05/29/2024 12:31:16 PM Interpretation: Performing Lab:[facility], [address] [place] [address] Notes/Report: Blood Urea Nitrogen 26 9-16 mg/dL Creatinine Reviewed date:05/29/2024 12:31:16 PM Interpretation: Performing Lab:[address] [address] Notes/Report: Creatinine 1.10 0.5-1.4 mg/dL Estimated Glomerular Filt Rate 50 NOTE: For -Icelandic individuals, multiply the result by 1.210. Chronic Kidney Disease: Estimated GFR < 60 mL/min/1.73m2 Severe Kidney Disease: Estimated GFR < 15 mL/min/1.73m2 Calcium Reviewed date:05/29/2024 12:31:16 PM Interpretation: Performing Lab:[address] [address] Notes/Report: Calcium 9.8 8.4-10.2 mg/dL IRON PROFILE Reviewed date:05/29/2024 12:31:16 PM Interpretation: Performing Lab:[address] [address] Notes/Report: Iron 95 30-160 mcg/dL Total Iron Binding Capacity 241 228-428 mcg/dL Percent Iron Saturation 39 15-50 % Unsaturated Iron Binding 146 Ferritin Reviewed date:05/29/2024 12:31:16 PM Interpretation: Performing Lab:[facility], [address] [place] [phone] Notes/Report: Ferritin 182 10-250 ng/mL Lactate Dehydrogenase Reviewed date:05/29/2024 12:31:16 PM Interpretation: Performing Lab:[facility], [address] [place] [address] Notes/Report: Lactate Dehydrogenase 183 122-220 U/L Vitamin B12 and Folate Reviewed date:05/29/2024 12:31:16 PM Interpretation: Performing Lab:[address] [address] Notes/Report: Vitamin B12 530 200-900 pg/mL NORMAL 200-900 PG/ML INDETERMINATE 160-199 PG/ML DEFICIENT < 160 PG/ML Folate 6.1 > or = 4.0 ng/mL Reference Values: > or = 4.0 ng/mL < 4.0 ng/mL suggests folate deficiency Methotrexate, aminopterin and folinic acid (leucovorin) are chemotherapeutic agents whose molecular structures are similar to folate; therefore, the Graduate Teaching Associate folate assay cannot be used for patients using these drugs. Protein Creatinine Ratio, Ur Reviewed date:05/29/2024 12:31:16 PM Interpretation: Performing Lab:[facility], [address] [place] [address] Notes/Report: Creatinine Urine 165.24 Total Protein Urine Random 10 <12 mg/dL Protein/Creatinine Ratio, Ur 0.06 <0.2 The spot urine protein:creatinine ratio may increase to 0.3 during normal . Immunofixation Pnl, Serum Reviewed date:06/26/2024 06:56:19 AM Interpretation: Performing Lab:[address] [address] Notes/Report: IgG 2949 772-6922 mg/dL IgA 225 70-320 mg/dL IgM 83 50-300 mg/dL THIS TEST WAS PERFORMED AT: [facility] [address] [address] ADELE SOLOMON MD Immunofixation Interpretation SEE NOTE Normal pattern. No monoclonal proteins detected. Complement C3 Reviewed date:05/29/2024 12:31:16 PM Interpretation: Performing Lab:[facility], [address] [place] [address] Notes/Report: Complement C3 126 83-193 mg/dL THIS TEST WAS PERFORMED AT: [facility] [address] [place] [phone] ADELE SOLOMON MD Complement C4 Reviewed date:05/29/2024 12:31:16 PM Interpretation: Performing Lab:[facility], [address] [place] [address] Notes/Report: Complement C4 31 15-57 mg/dL THIS TEST WAS PERFORMED AT: [facility] [address] [place] [phone] ADELE SOLOMON MD US renal doppler Reviewed date:06/26/2024 06:56:19 AM Interpretation: Performing Lab: Notes/Report: [address] [address] Ultrasound Report Signed Patient: Lynnette Mcgill MR#: [id number] : 1960 Acct:[id number] Age/Sex: 63 / F ADM Date: 06/25/24 Loc: .US Attending Dr: Da Raya MD Ordering Physician: Da Raya MD Date of Service: 06/25/24 Procedure(s): US renal doppler Accession Number(s): [id number] cc: Yovanny Noel MD; aD Ryaa MD EXAMINATION: US RETROPERITONEAL LIMITED (RENAL ONLY) [...] 06/25/24 1414 DD/ 1009 TD/TT: 06/25/24 1030 Department Operations Manager: [place] [address] Ultrasound Report Signed Patient: Lynnette Mcgill MR#: [id number] : 1960 Acct:[id number] Age/Sex: 63 / F ADM Date: 06/25/24 Loc: HO.US Attending Dr: Da Raya MD Ordering Physician: Da Raya MD Date of Service: 06/25/24 Procedure(s): US soo al doppler Accession Number(s): [id number] cc: Yovanny Noel MD; Da Raya MD [...] MD 06/25/2024 02:14 PM EDT Dictated By: Harry Eddy MD Signed By: <Electronically signed by Denny Eddy MD in OV> 06/25/24 1414 DD/ 1009 TD/TT: 06/25/24 1030 Department Operations Manager: CAR[facility] US renal BI Reviewed date:06/26/2024 06:56:19 AM Interpretation: Performing Lab: Notes/Report: [address] [address] Ultrasound Report Signed Patient: Lynnette Mcgill MR#: [id number] : 1960 Acct:[id number] Age/Sex: 63 / F ADM Date: 06/25/24 Loc: .US Attending Dr: Da Raya MD Ordering Physician: Da Raya MD Date of Service: 06/25/24 Procedure(s): US renal BI Accession Number(s): [id number] cc: Yovanny Noel MD; Da Raya MD [...] 06/25/24 1414 DD/ 1005 TD/TT: 06/25/24 1030 Department Operations Manager: [place] [address] Ultrasound Report Signed Patient: Lynnette Mcgill MR#: [id number] : 1960 Acct:[id number] Age/Sex: 63 / F ADM Date: 06/25/24 Loc: HO.US Attending Dr: Da Raya MD Ordering Physician: Da Raya MD Date of Service: 06/25/24 Procedure(s): US soo al BI Accession Number(s): [id number] cc: Yovanny Noel MD; Da Raya MD [...] 06/25/24 1414 DD/ 1005 TD/TT: 06/25/24 1030 Department Operations Manager: CARMEN Urinalysis and Microscopic Reviewed date:07/14/2024 07:05:27 AM Interpretation: Performing Lab:[address] [address] Notes/Report: Color Urine Yellow Appearance Urine Clear PH 6.5 5.0-9.0 Glucose Urine UA Negative Negative mg/dL Urine Blood Negative Negative Specific [place] - Urine 1.020 1.005-1.025 Urine Protein Negative Neg-Trace mg/dL Urine Ketones Negative Negative mg/dL Nitrite Urine Negative Negative Leukocyte Esterase Urine Large (3+) Negative RBC Urine 0-2 0-2 /HPF WBC Urine 6-10 0-5 /HPF Squamous Epithelial Cell Urine 6-10 0-2 /HPF Bacteria Urine Trace None Seen Hyaline Casts Urine 3-5 0-2 /LPF Electrolytes Reviewed date:07/14/2024 07:05:27 AM Interpretation: Performing Lab:[facility], [address] [place] [address] Notes/Report: Sodium 142 135-145 mmol/L Potassium 4.1 3.3-5.1 mmol/L Chloride 113 96-108 mmol/L Carbon Dioxide 22 22-29 mmol/L Anion Gap 11 12-20 Blood Urea Nitrogen Reviewed date:07/14/2024 07:05:27 AM Interpretation: Performing Lab:[address] [address] Notes/Report: Blood Urea Nitrogen 29 9-16 mg/dL Creatinine Reviewed date:07/14/2024 07:05:27 AM Interpretation: Performing Lab:[facility] [address] [address] Notes/Report: Creatinine 1.19 0.5-1.4 mg/dL Estimated Glomerular Filt Rate 46 NOTE: For -Icelandic individuals, multiply the result by 1.210. Chronic Kidney Disease: Estimated GFR < 60 mL/min/1.73m2 Severe Kidney Disease: Estimated GFR < 15 mL/min/1.73m2 Calcium Reviewed date:07/14/2024 07:05:27 AM Interpretation: Performing Lab:[address] [address] Notes/Report: Calcium 10.1 8.4-10.2 mg/dL TSH reflex Free T4 Reviewed date:07/14/2024 07:05:27 AM Interpretation: Performing Lab:[address] [address] Notes/Report: TSH reflex Free T4 0.70 0.32-4.0 uIU/mL Aldosterone Reviewed date:07/27/2024 06:33:19 AM Interpretation: Performing Lab:[facility], [address] [place] [phone] Notes/Report: Aldosterone TNP Renin Reviewed date:07/20/2024 08:40:23 AM Interpretation: Performing Lab:[address] [address] Notes/Report: Renin 0.28 0.25-5.82 ng/mL/h This test was developed and its analytical performance characteristics have been determined by [facility] [place]. It has not been cleared or approved by the U.S. Food and Drug Administration. This assay has been validated pursuant to the CLIA regulations and is used for clinical purposes. THIS TEST WAS PERFORMED AT: [facility] [address] [place] [address] DENNY DOMINGUEZ MD,PHD Aldost/Renin Reviewed date:07/27/2024 06:33:19 AM Interpretation: Performing Lab:[address] [address] Notes/Report: Aldosterone 7 see note ng/dL Unable to flag abnormal result(s), please refer to reference range(s) below: Adult Reference Ranges for Aldosterone, LC/MS/MS: Upright 8:00 - 10:00 am < or = 28 ng/dL Upright 4:00 - 6:00 pm < or = 21 ng/dL Supine 8:00 - 10:00 am 3 - 16 ng/dL THIS TEST WAS PERFORMED AT: [facility] [address] DENNY DOMINGUEZ MD,PHD Plasma Renin Activity 0.33 0.25-5.82 ng/mL/h Aldosterone/Renin Ratio 21.2 0.9-28.9 Ratio This test was developed and its analytical performance characteristics have been determined by [facility] [place]. It has not been cleared or approved by the U.S. Food and Drug Administration. This assay has been validated pursuant to the CLIA regulations and is used for clinical purposes. THIS TEST WAS PERFORMED AT: [facility] [address] DENNY DOMINGUEZ MD,PHD Metanephrines, Plasma Reviewed date:07/16/2024 03:36:49 PM Interpretation: Performing Lab:[facility], [address] [place] [address] Notes/Report: Metanephrine, Free <25 <=57 pg/mL This test was developed and its analytical performance characteristics have been determined by [facility] [place]. It has not been cleared or approved by the U.S. Food and Drug Administration. This assay has been validated pursuant to the CLIA regulations and is used for clinical purposes. Normetanephrines, Free 158 <=148 pg/mL This test was developed and its analytical performance characteristics have been determined by [facility] [place]. It has not been cleared or approved by the U.S. Food and Drug Administration. This assay has been validated pursuant to the CLIA regulations and is used for clinical purposes. Total Metanephrine, Free 158 <=205 pg/mL For additional information, please refer to http://education.[employer].Kredits/faq/MetF ractFree (This link is being provided for [...] analytical performance characteristics have been determined by [facility] [place]. It has not been cleared or approved by the U.S. Food and Drug Administration. This assay has been validated pursuant to the CLIA regulations and is used for clinical purposes. THIS TEST WAS PERFORMED AT: [facility] [employer] [address] DENNY DOMINGUEZ MD,PHD Protein Creatinine Ratio, Ur Reviewed date:07/14/2024 07:05:27 AM Interpretation: Performing Lab:[address] [address] Notes/Report: Creatinine Urine 170.09 Total Protein Urine Random 9 <12 mg/dL Protein/Creatinine Ratio, Ur 0.05 <0.2 The spot urine protein:creatinine ratio may increase to 0.3 during normal . Cortisol Random Reviewed date:07/14/2024 07:05:27 AM Interpretation: Performing Lab:[facility], [address] [place] [address] Notes/Report: Cortisol Random 9.6 Reference Range*: Before [...] ff Reviewed date:07/27/2024 06:33:19 AM Interpretation: Performing Lab:[address] [place] [address] Notes/Report: White Blood Count 5.6 4.8-10.8 X10*3/uL [...] Panel Reviewed date:07/27/2024 06:33:19 AM Interpretation: Performing Lab:[facility], [address] [place] [address] Notes/Report: Sodium 143 135-145 mmol/L Potassium 4.1 3.3-5.1 mmol/L Chloride 112 96-108 mmol/L Carbon Dioxide 25 22-29 mmol/L Anion Gap 10 12-20 Blood Urea Nitrogen 29 9-16 mg/dL Creatinine 1.42 0.5-1.4 mg/dL Estimated Glomerular Filt Rate 37 NOTE: For -Icelandic individuals, multiply the result by 1.210. Chronic [...] Diff Reviewed date:12/27/2024 08:01:52 AM Interpretation: Performing Lab:[address] [address] Notes/Report: White Blood Count 5.0 4.8-10.8 X10*3/uL [...] Panel Reviewed date:12/27/2024 08:01:52 AM Interpretation: Performing Lab:[address] [address] Notes/Report: Sodium 141 135-145 mmol/L Potassium 3.8 [...] Sensitivity Reviewed date:12/27/2024 08:01:52 AM Interpretation: Performing Lab:[facility], [address] [place] [address] Notes/Report: Troponin-I High Sensitivity < 2.7 <3.5-17.0 ng/L The Weiss high sensitivity Troponin-I results should be used in conjunction with other diagnostic information such as ECG, clinical observations and information, and patient symptoms to aid in the diagnosis of [place]. B Type Natriuretic Peptide Reviewed date:12/27/2024 08:01:52 AM Interpretation: Performing Lab:[facility], [address] [place] [phone] Notes/Report: B Type Natriuretic Peptide 64 <100 pg/mL Reason For Referral Reason Consult and treat Ab d/Back Pain Continued Pancreatitis Diagnosis 1 Pancreatitis (577.0) Referral Organization Yovanny Noel III, MD Referring Provider First Name Yovanny Referring Provider Last Name Noel Referring Provider Speciality Internal edicine Referred Provider LETICIA MARIO Referred Provider Specialty Gastroentero logy General Notes Marixa Smith 2023 09:46:07 AM EDT > Faxed with Referral, progress note, mercy discharge and Ct scan. Referral Priority Routine Referral Appointment Date 03/06/2024 Reason Consult and Treat Post Nasal Drip Diagnosis 1 Rhinitis (J31.0) Referral Organization Yovanny Noel III, MD Referring Provider First Name Yovanny Referring Provider Last Name Noel Referring Provider Speciality Internal M edicine Referred Provider [facility], [facility], [facility] Referred Provider Specialty Otolaryngolo gy General Notes Marixa Smith 2023 01:13:34 PM EDT > Referral Faxed with progress noteSarah Amber 06/17/2024 02:11:33 PM EDT > Patient has not been scheduled at this time but is in the system, Marixa Zimmerman 07/23/2024 02:14:59 PM > urgent referral was faxed over with most recent progress note and cover sheet, Erasmo Marixa 07/30/2024 09:48:54 AM > Called and spoke with the office they scheduled her for 09/19/24 @ 10:30am with Nichelle in the [place] office. Patient called and notified Referral Priority Routine Referral Appointment Date 09/19/2024 Reason Consult and Treat Post Nasal Drip Ear Discomfort Diagnosis 1 Chronic sinusitis, u nspecified (J32.9) Referral Organization Yovanny Noel III, MD Referring Provider First Name Yovanny Referring Provider Last Name Sadie Referring Provider Speciality Internal M edicine Referred Provider CHARISSE HERMOSILLO Referred Provider Specialty Otolaryngolo gy General Notes Upton, Marixa 06/24 03:32:37 PM >Patient was given Dr. Hermosillo's phone number and address. Patient was informed they want the patient to call and schedule the appointment Referral Priority Routine Reason increased pain down right leg even at rest Diagnosis 1 Lumbar radiculopathy (M54.16) Referral Organization Yoavnny Neol III, MD Referring Provider First Name Yovanny Referring Provider Last Name Sadie Referring Provider Speciality Internal M edicine [facility] Referred Provider Specialty Physical Med icine General Notes Leatha Wood CMA 10/08 10:42:43 AM >Patient to have MRI spine done at [facility] after that result comes in ref patient back to [facility] to discuss possible spinal cord stimulator insertion, Leatha Wood CMA 10/15/2024 02:34:17 PM >ref/demo/progress note and MRI report faxed to [facility] at regular fax number and fax # [phone] they will call patient to set up appt, Leatha Wood CMA 10/21/2024 09:59:28 AM > I called spoke to patient she stated she has appt at [facility] for 11/19/2024 Referral Priority Routine Referral Appointment Date 11/19/2024 Reason Evaluate and Treat Constipation not responding to anything Bowel movements once a week Diagnosis 1 Constipation (K59.00 ) Referral Organization Yovanny Noel III, MD Referring Provider First Name Yovanny Referring Provider Last Name Noel Referring Provider Speciality Internal M edicine Referred Provider LETICIA MARIO Referred Provider Specialty Gastroentero megan General Marixa Hayes 01/05/2025 10:25:50 AM > Referral and progress note Faxed Referral Priority Routine Reason left leg pain Diagnosis 1 Pain of left lower e xtremity (M79.605) Referral Organization Yovanny Noel III, MD Referring Provider First Name Yovanny Referring Provider Last Name Sadie Referring Provider Speciality Internal edicine Referred Organization [facility] nt Referred Provider Franklin Eason Referred Address [address] [place] [address],[place], [place],[id number], Referred Provider Specialty Vascular Fred meg General Notes Leatha Wood CMA 02/02 01:23:25 PM > called Vilma at Dr Eason office [phone] pt has appt for a vascular ultrasound at on 03/11/2025 at 10am pt then has appt with Dr Eason 03/17/2025 at 11:30am information about this appt mailed and called to patient Referral Priority Routine Referral Appointment Date 03/17/2025 Medications Medication SIG (Take, Route, Frequency, Duration) Notes Start Date End Date Status Simvastatin 40 MG Take 1 tablet by paras th in the evening Orally Once a day Active Gabapentin 300 MG 1 capsule Orally thr ee times a day 01/23/2023 Active Polyethylene Glycol 3350 17 GM 1 packet mixed with 8 ounces of fluid Orally Once a day Active K-Tab 10 MEQ 1 tablet with food Orally Once a day 02/15/2021 Active Furosemide 40 MG 1 tablet Orally Once a day 02/15/2021 Active Pregabalin 50 MG 1 capsule Orally Twi ce a day Active Lisinopril 40 MG Take 1 tablet by paras th once daily for 30 Active Cyclobenzaprine HCl 10 MG as directed Or ally three times a day 08/15/2022 Active Meloxicam 15 MG Take 1 tablet by paras th once daily Active Benzonatate 200 MG 1 capsule as needed Orally Three times a day 06/24/2024 Active hydrALAZINE HCl 50 MG 1 tablet with food Orally Four times a day Active Escitalopram Oxalate 20 MG 1 tablet Oral ly Once a day 12/29/2021 Active Senna Laxative 8.6 MG 1 tablet Orally tw ice a day 12/29/2024 Active Flonase 50 MCG/ACT 1 spray in each nost ril Nasally Once a day 09/28/2023 Active dexAMETHasone 2 MG 1 tablet Orally ever y 12 hrs 10/21/2024 Active Combivent 18-103 MCG/ACT 2 puffs Inhalat ion Six times a day Active Advair Diskus 500-50 MCG/DOSE 1 puff Inh alation every 12 hrs Active Metoprolol Tartrate 100 MG Take 1 tablet by mouth twice daily with food Active guaiFENesin-Codeine 100-10 MG/5ML 10 mL as needed Orally every 6 hrs 07/22/2024 Active Guaiatussin AC 100-10 MG/5ML 10 mL as needed Orally every 6 hrs As needed 07/22/2024 Active Esomeprazole Magnesium 40 MG Take 1 [...] the evening Orally Once a day Active dexAMETHasone 2 MG 1 tablet Orally teic e a day for 14 days 01/27/2025 Active Ibuprofen 800 MG 1 tablet Orally Thre e times a day 07/28/2016 Active amLODIPine Besylate 10 MG 1 tablet Orall y Once a day Active Pregabalin 75 MG 1 capsule Orally Onc e a day for 30 days 01/27/2025 Active Loratadine 10 MG 1 tablet Orally Once a day 07/22/2024 Active Social History Tobacco Use: Social History [...] Problem Status W/U Status Risk Notes Problem 0432574 Former smoker (Z87.891) Active confirmed She is highly motivated to not smoke. We have discussed a strategy for maintenance of abstinence in times of stress and illness. Problem 449218192 Asthma (J45.909) Active confirmed She has bbeen free of asthma lately. There was no wheezing today. She was breathing room air comfortably. Current therapy was continued. Problem 211527164 Lumbar radiculopathy (M54.16) Active confirmed She continues t o have left-sided sciatica which she finds debilitating [...] does not have arterial disease or venous Problem Hyperlipidemia (16092724) Hyperlipidemia, unspecified (E78.5) Active confirmed Comprehensive blood work with a fasting lipid profile has been ordered. No change in her medications was made today. Problem 20989550 Essential hypertension (I10) Active confirmed Her blood pressure has come under control. She is being evaluated by nephrology with metanephrines. An ultrasound of her renal arteries did not show renal artery stenosis. We have discussed weight reduction and sodium restriction. Panorex. We will continue to reduce the blood pressure lifestyle modification. Problem 07216229 Other and unspecified hyperlipidemia (E78.5) Active confirmed Comprehensive blood work with a fasting lipid profile is being done periodically.The most recent total cholesterol was within normal limits. Problem CVA - Cerebrovascular accident (783346528) CVA (cerebral vascular accident) (I63.9) Active confirmed She continues t o have mild residual numbness in left side of her face but no muscle weakness is noted. She is able to conduct all of the activities of daily living. Her blood pressure is stable and her weight is dropping steadily. She is consuming a healthy, low-sodium diet. Problem 937492178 Nontoxic uninodular goiter (E04.1) Active confirmed Her thyroid i s not palpable today. She appears to be euthyroid. This problem will be followed closely. Problem 55935846 Vitamin D deficiency (E55.9) Active confirmed She is continuing on vitamin D supplementation. 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 Problem Constipation (36612725) Constipation (K59.00) Active confirmed I gave her instructions to consume one Bolla brands fairly with every breakfast. She will take Senokot twice a day. A followup was arranged. Problem 820450404 Morbid obesity (E66.01) Active confirmed She continues t o participate in the weight-loss program. She has lost 12 pounds since October 31, 2024. She will continue on her current therapies without change. She will be seen frequently to weigh her and form of support. Problem 25710785 Sleep apnea in adult (G47.30) Active confirmed She continues to use her CPAP. 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 She will continue to take it on a daily basis. Follow-up visit near future was scheduled. Problem [id number] Pain of left lower extremity (M79.605) Active confirmed Problem Gastroesophageal reflux disease with esophagitis (disorder) (279670452) Gastro-esophage al reflux disease with esophagitis, without bleeding (K21.00) Active confirmed Her reflux symptoms are well controlled with medication. She is avoiding foods and medication that stimulate acid production. Problem [id number] Stage 3b chronic kidney disease (N18.32) Active confirmed Her current GFR is 38. She is under the care of nephrology. Her hydrochlorothiaz lucie was stopped. Her blood pressure was reasonable today. Vital Signs Heart Rate 77 /min 01/27/2025 Temperature 98.0 degrees Fahrenheit 01/27/2025 Blood pressure diastolic 75 mm Hg 01/27/2025 Height 63 in 01/27/2025 Blood pressure systolic 140 mm Hg 01/27/2025 Weight 267 lbs 01/27/2025 BMI 47.29 kg/m2 01/27/2025 Encounters Encounter Location Date Provider Diagnosis Yovanny Noel III, MD [address] [place] [address] [place] [address] 02/11/2024 Yovanny Noel Asthma J45.909 ; Oth er and unspecified hyperlipidemia E78.5 ; Nontoxic uninodular goiter E04.1 ; Former smoker Z87.891 ; Essential hypertension I10 ; Morbid obesity E66.01 ; Lumbar radiculopathy M54.16 and Acute pancreatitis, unspecified complication status, unspecified pancreatitis type K85.90 Yovanny Noel III, MD [address] [place] [address] [place] [address] 04/22/2024 Yovanny Noel Asthma J45.909 ; Sim ple chronic bronchitis J41.0 ; Persistent cough R05.3 ; Former smoker Z87.891 ; Nontoxic uninodular goiter E04.1 ; Other and unspecified hyperlipidemia E78.5 and Essential hypertension I10 Yovanny Noel III, MD [address] [place] [address] [place] [address] 05/05/2024 Yovanny Noel Asthma J45.909 ; Essential hypertension I10 ; Morbid obesity E66.01 ; Nontoxic uninodular goiter E04.1 ; Former smoker Z87.891 ; Lumbar radiculopathy M54.16 and Stage 3b chronic kidney disease N18.32 Yovanny Noel III, MD [address] [place] [address] [place] [address] 05/20/2024 Yovanny Noel Asthma J45.909 ; Oth er and unspecified hyperlipidemia E78.5 ; Nontoxic uninodular goiter E04.1 ; Former smoker Z87.891 ; Essential hypertension I10 ; Reactive depression F32.9 ; Sleep apnea in adult G47.30 ; Gastro-esophageal reflux disease with esophagitis, without bleeding K21.00 and Morbid obesity E66.01 Yovanny Noel III, MD [address] [place] [address] [place] [address] 06/12/2024 Yovanny Noel Asthma J45.909 ; Oth er and unspecified hyperlipidemia E78.5 ; Essential hypertension I10 ; Morbid obesity E66.01 ; Lumbar radiculopathy M54.16 ; Reactive depression F32.9 ; CVA (cerebral vascular accident) I63.9 and Nontoxic uninodular goiter E04.1 Yovanny Noel III, MD [address] [place] [address] [place] [address] 06/24/2024 Yovanny Noel Asthma J45.909 ; Postnasal drip R09.82 ; Other and unspecified hyperlipidemia E78.5 ; Former smoker Z87.891 ; Essential hypertension I10 and Morbid obesity E66.01 Yovanny Noel III, MD [address] [place] [address] [place] [address] 07/15/2024 Yovanny Noel Otitis of right ear H66.91 ; Other and unspecified hyperlipidemia E78.5 ; Nontoxic uninodular goiter E04.1 ; Essential hypertension I10 ; Asthma J45.909 ; Lumbar radiculopathy M54.16 ; Sleep apnea in adult G47.30 ; Chronic sinusitis, unspecified J32.9 and Former smoker Z87.891 Yovanny Noel III, MD [address] [place] [address] [place] [address] 07/22/2024 Yovanny Noel Other and unspecifie d hyperlipidemia E78.5 ; Morbid obesity E66.01 ; Cough R05.9 ; Allergic rhinitis, unspecified J30.9 ; Postnasal drip R09.82 ; Former smoker Z87.891 ; Asthma J45.909 ; Essential hypertension I10 and Lumbar radiculopathy M54.16 Yovanny Noel III, MD [address] [place] [address] [place] [address] 07/30/2024 Yovanny Noel Chronic sinusitis, unspecified J32.9 ; Rhinitis J31.0 ; Stage 3b chronic kidney disease N18.32 ; Gastro-esophageal reflux disease with esophagitis, without bleeding K21.00 ; Morbid obesity E66.01 ; Former smoker Z87.891 ; Asthma J45.909 and Lumbar radiculopathy M54.16 Yovanny Noel III, MD [address] [place] [address] [place] [address] 08/11/2024 Yovanny Noel Chronic sinusitis, unspecified J32.9 ; Morbid obesity E66.01 ; Former smoker Z87.891 ; Asthma J45.909 and Lumbar radiculopathy M54.16 Yovanny Noel III, MD [address] [place] [address] [place] [address] 10/02/2024 Yovanny Noel Asthma J45.909 ; For [place] smoker Z87.891 ; Essential hypertension I10 ; Morbid obesity E66.01 and Lumbar radiculopathy M54.16 Yovanny Noel III, MD [address] [place] [address] [place] [address] 10/15/2024 Yovanny Noel Asthma J45.909 ; For [...] Reactive depression F32.9 Yovanny Noel III, MD [address] [place] [address] [place] [address] 10/21/2024 Yovanny Noel Asthma J45.909 ; Lum bar radiculopathy M54.16 ; Morbid obesity E66.01 ; Sleep apnea in adult G47.30 ; Vitamin D deficiency E55.9 and Reactive depression F32.9 Yovanny Noel III, MD [address] [place] [address] [place] [address] 10/31/2024 Yovanny Noel Asthma J45.909 ; For [place] smoker Z87.891 ; Essential hypertension I10 ; Morbid obesity E66.01 and Lumbar radiculopathy M54.16 Yovanny Noel III, MD [address] [place] [address] [place] [address] 12/29/2024 Yovanny Noel Asthma J45.909 ; Mor bid obesity E66.01 ; Other and unspecified hyperlipidemia E78.5 ; Nontoxic uninodular goiter E04.1 ; Former smoker Z87.891 ; CVA (cerebral vascular accident) I63.9 ; Sleep apnea in adult G47.30 ; Vitamin D deficiency E55.9 ; Stage 3b chronic kidney disease N18.32 and Constipation K59.00 Yovanny Noel III, MD [address] [place] [address] [place] [address] 01/14/2025 Yovanny Noel Asthma J45.909 ; Oth er and unspecified hyperlipidemia E78.5 ; Nontoxic uninodular goiter E04.1 ; Former smoker Z87.891 ; Essential hypertension I10 ; Reactive depression F32.9 ; Vitamin D deficiency E55.9 ; Stage 3b chronic kidney disease N18.32 and Constipation K59.00 Yovanny Noel III, MD [address] [facility] [place] [address] 01/27/2025 Yovanny Noel Morbid obesity E66.0 1 ; Other and unspecified hyperlipidemia E78.5 ; Nontoxic uninodular goiter E04.1 ; Former smoker Z87.891 ; Essential hypertension I10 ; Asthma J45.909 ; CVA (cerebral vascular accident) I63.9 ; Sleep apnea in adult G47.30 ; Reactive depression F32.9 and Lumbar radiculopathy M54.16 Yovanny Noel III, MD [address] [place] [address] [place] [address] 04/25/2024 Yovanny Noel III, MD [address] [place] [address] [place] [address] 05/23/2024 Yovanny Noel Asthma J45.909 Yovanny Noel III, MD [address] [place] [address] [place] [address] 06/20/2024 Yovanny Noel III, MD [address] [place] [address] [place] [address] 06/20/2024 Yovanny Noel III, MD [address] [place] [address] [place] [address] 06/23/2024 Yovanny Noel III, MD [address] [place] [address] [place] [address] 07/18/2024 Yovanny Noel III, MD [address] [place] [address] [place] [address] 07/21/2024 Yovanny Noel III, MD [address] [place] [address] [place] [address] 08/08/2024 Yovanny Noel Cough R05.9 Yovanny Noel III, MD [address] [place] [address] [place] [address] 08/18/2024 Yovanny Noel III, MD [address] [place] [address] [place] [address] 10/17/2024 Yovanny Noel III, MD [address] [place] [address] [place] [address] 10/17/2024 Yovanny Noel III, MD [address] [place] [address] [address] [place] [address] 10/21/2024 Yovanny Noel III, MD [address] [place] [address] [address] [place] [address] 10/27/2024 Yovanny Noel Assessments Encounter Date Diagnosis (ICD Code) Assessment Notes Treatment Notes Treatment Clinical Notes 02/11/2024 Asthma (ICD-10 - J45.909) She is [...] bronchitis (ICD-10 - J41.0) We will employ [id number] antitussives and attempt to control the cough. [...] to weigh her and form of support. 01/14/2025 Asthma (ICD-10 - J45.909) She has bbeen free of asthma lately. There was no wheezing today. She was breathing room air comfortably. Current therapy was continued. 01/14/2025 Other and unspecified hyperlipidemia (ICD-10 - E78.5) Comprehensive blood work with a fasting lipid profile is being done periodically.The most recent total cholesterol was within normal limits. 01/27/2025 Other and unspecified hyperlipidemia (ICD-10 - E78.5) Comprehensive blood work with a fasting lipid profile is being done periodically.The most recent total cholesterol was within normal limits. 01/27/2025 Morbid obesity (ICD-10 - E66.01) She [...] was continued. 08/08/2024 Cough (ICD-10 - R05.9) 02/11/2024 Nontoxic uninodular goiter (ICD-10 - E04.1) Her thyroid is not palpable today. She appears to be euthyroid. This problem will be followed closely. 04/22/2024 Persistent cough (ICD-10 - R05.3) She will continue on current medication for now. 05/05/2024 Morbid obesity (ICD-10 - E66.01) She is involved in the weight loss program at [facility] and has had bariatric surgery. She sees [...] This problem will be followed closely. 01/27/2025 Nontoxic uninodular goiter (ICD-10 - E04.1) [...] in times of stress and illness. 01/27/2025 Former smoker (ICD-10 - Z87.891) She [...] reduce the blood pressure lifestyle modification. 01/27/2025 Essential hypertension (ICD-10 - I10) Her blood pressure has come under control. She is being evaluated by nephrology with metanephrines. An ultrasound of her renal arteries did not show renal artery stenosis. We have discussed weight reduction and sodium restriction. Panorex. We will continue to reduce the blood pressure lifestyle modification. 02/11/2024 Morbid obesity (ICD-10 - E66.01) She is involved in the weight loss program at [facility] and has had bariatric surgery. She sees [...] She is consuming a healthy, low-sodium diet. 01/14/2025 Reactive depression (ICD-10 - F32.9) She has been taking citalopram only intermittently. She will continue to take it on a daily basis. Follow-up visit near future was scheduled. 01/27/2025 Asthma (ICD-10 - J45.909) She has bbeen free of asthma lately. There was no wheezing today. She was breathing room air comfortably. Current therapy was continued. 02/11/2024 Lumbar radiculopathy (ICD-10 - M54.16) She [...] G47.30) She continues to use her CPAP. 01/14/2025 Vitamin D deficiency (ICD-10 - E55.9) She is continuing on vitamin D supplementation. 01/27/2025 CVA (cerebral vascular accident) (ICD-10 - I63.9) She continues to have mild residual numbness in left side of her face but no muscle weakness is noted. She is able to conduct all of the activities of daily living. Her blood pressure is stable and her weight is dropping steadily. She is consuming a healthy, low-sodium diet. 02/11/2024 Acute pancreatitis, unspecified complication status, unspecified [...] stopped. Her blood pressure was reasonable today. 01/27/2025 Sleep apnea in adult (ICD-10 - G47.30) She continues to use her CPAP. 05/20/2024 Morbid obesity (ICD-10 - E66.01) She is involved in the weight loss program at [facility] and has had bariatric surgery. She sees [...] twice a day. A followup was arranged. 01/27/2025 Reactive depression (ICD-10 - F32.9) She has been taking citalopram only intermittently. She will continue to take it on a daily basis. Follow-up visit near future was scheduled. 10/15/2024 Sleep apnea in adult (ICD-10 - G47.30) She continues to use her CPAP. 12/29/2024 Constipation (ICD-10 - K59.00) I gave her instructions to consume one [employer] brands fairly with every breakfast. She will take Senokot twice a day. A followup was arranged. 01/27/2025 Lumbar radiculopathy (ICD-10 - M54.16) She [...] does not have arterial disease or venous 10/15/2024 Vitamin D deficiency (ICD-10 - E55.9) [...] 2 VIEW PA & LAT 04/22/2024 US LEG UNILATERAL ARTERY 01/27/2025 US RENAL DOPPLER 12/04/2022 Next Appt Details Provider Name:Yovanny Noel, 02/18/2025 10:30:00 AM, [address] [facility] [address], [place], [address], Provider Name:Yovanny Noel, 10/05/2025 10:30:00 AM, [address] [facility] [address], [place], [address], Insurance Providers Payer Name Payer Address Payer Phone Subscriber Number Group Number Insured Name Patient Relationship to Insured Coverage Start Date Coverage End Date MEDICARE NGS [address] [place] [address] [id number] Lynnette Mcgill Self - patient is the insured [place] [address] [place] [id number] [phone] [id number] Lynnette Mcgill Self - patient is the [...]
== END 2025-02-09 10:29 | disposition home or self-care (01) ==
PROVIDERS: PCP Internal Medicine Medical Oncology; Visit Provider Hospitalist
DX: G47.33 Obstructive sleep apnea (adult) (pediatric) (principal); Z99.89 Dependence on other enabling machines and devices; J45.40 Moderate persistent asthma, uncomplicated; R06.00 Dyspnea, unspecified; J30.9 Allergic rhinitis, unspecified
CPT/HCPCS: 99214

== ENCOUNTER → 2025-02-09 10:05 | Outpatient (BNVA) | payer MEDICARE, MEDICAID, SELFPAY | PROVIDERS: PCP Internal Medicine Medical Oncology; Visit Provider Hospitalist | DX: J45.40 Moderate persistent asthma, uncomplicated (principal); J30.9 Allergic rhinitis, unspecified; R06.00 Dyspnea, unspecified; G47.33 Obstructive sleep apnea (adult) (pediatric); Z99.89 Dependence on other enabling machines and devices | CPT/HCPCS: 99212 ==

== ENCOUNTER 2025-03-11 09:13 | Outpatient (REF) | payer MEDICARE, MEDICAID, SELFPAY ==
--- NOTE | ~2025-03-11 | US_ITS ---
EXAMINATION: Noninvasive assessment of the left lower extremity. CLINICAL INFORMATION: Pain, left lower extremity. TECHNIQUE: Duplex Doppler techniques with waveform analysis and measurement of velocities in the left common femoral, profunda femoris, superficial femoral, popliteal and tibial arteries were performed. The study was performed only at rest. COMPARISON: None FINDINGS: DIRECT DUPLEX DOPPLER FINDINGS: LEFT LEG: Common femoral artery: 145 cm/s, phasicity: Triphasic. Profunda femoris artery: 70 cm/s, phasicity: Triphasic. Superficial femoral artery (proximal): 119 cm/s, phasicity: Triphasic. Superficial femoral artery (mid): 78 cm/s, phasicity: Triphasic. Superficial femoral artery (distal): 66 cm/s, phasicity: Triphasic. Popliteal artery: 70 cm/s, phasicity: Triphasic. Posterior tibial artery: 99 cm/s, phasicity: Triphasic. Peroneal artery: No color Doppler flow registered. . Anterior tibial artery: 84 cm/s, phasicity: Triphasic. Dorsalis pedis artery: 80 cm/s, phasicity: Triphasic. US/US arterial duplex LE LT IMPRESSION: Normal patency and waveforms of the interrogated vessels, left lower extremity. Electronically signed by: Brandon Marx MD 03/12/2025 09:05 AM EDT
== END 2025-03-11 09:14 | disposition home or self-care (01) ==
LOC: HO.US 09:13
PROVIDERS: PCP Internal Medicine Medical Oncology; Referring Provider Surgery Vascular Surgery; Visit Provider Internal Medicine Medical Oncology
DX: M79.605 Pain in left leg (principal)
CPT/HCPCS: 93926

== ENCOUNTER → 2025-03-11 09:32 | Outpatient (BNV) | payer MEDICARE, MEDICAID, SELFPAY | PROVIDERS: PCP Internal Medicine Medical Oncology; Referring Provider Surgery Vascular Surgery; Visit Provider Radiology Diagnostic Radiology | DX: M79.662 Pain in left lower leg (principal) | CPT/HCPCS: 93926 ==

== ENCOUNTER 2025-03-17 11:00 | Outpatient (AMB) | payer MEDICARE, MEDICAID, SELFPAY ==
[2025-03-17 11:13] VITALS: BMI 44.6
--- NOTE | 2025-03-17 11:13 | MHC.OFFVIS ---
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 Started a few years ago. States its the UE & LE. 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 She originally met with her primary care doctor where she described pain going down the lateral aspect of her leg thigh down to her calf. She has undergone noninvasive arterial testing. Of note she is a nonsmoker nondiabetic. She now presents to us for vascular evaluation. 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 CVA (cerebral vascular accident) DEMI on CPAP Dyspnea Chest pressure Asthma Surgical History History of gastric bypass History of left knee surgery History of hysterectomy Family History Mother Breast cancer HTN (hypertension) Father Kidney disease HTN (hypertension) Maternal Uncle Diabetes Son Diabetes Social History Alcohol intake: never Patient Tobacco Use Status: Never used Tobacco Review of Systems Const All systems reviewed & are unremarkable except as noted in HPI and below Reports no additional complaints ENT Reports Normal hearing present Card Denies chest pain, Denies chest pain at rest, Denies chest pain with activity and Denies pedal edema Resp Denies cough GI Denies abdominal pain Musc Denies abnormal gait, Denies muscle cramps and Denies radiating pain into limb Skin/Breast Denies skin ulcer and Denies wounds Neuro Reports Normal hearing present and Denies abnormal gait Psych Reports no additional complaints Physical Exam Vital Signs: BMI result Body Mass Index 44.6 Const General: cooperative, healthy appearing and comfortable Orientation/consciousness: oriented to person, oriented to place and oriented to time HEENT Head: Yes normal to inspection Neck Neck: Yes normal visual inspection Carotids: no bruits Chest Chest palpation & inspection: normal inspection of the chest Resp Effort & Inspection: normal respiratory effort and able to speak in complete sentences Auscultation: clear to auscultation bilaterally, no crackles, no rales, no rhonchi and no wheezes Cardio Other: Bilateral palpable dorsalis pedis pulses Rate: regular rate Rhythm: regular rhythm Heart sounds: S1 normal heart sound present and S2 normal heart sound present Bruits: no carotid bruits Peripheral pulses: Peripheral pulses 2+ throughout GI Inspection: Yes normal to inspection Skin Wounds: no wounds Hair: normal Neuro General: oriented to person, oriented to place and oriented to time Cranial nerves: Yes CN's II-XII intact bilaterally and Yes Normal hearing present Cognition (Neuro): normal cognition Motor exam (neuro): 5/5 motor strength present throughout Extrem Other: venous exam: No significant superficial varicosities or spider telangiectasias, minimal edema General: No clubbing, No cyanosis and No edema Psych Appearance: grossly normal Mental Status: mental status grossly normal Speech and movement: Normal speech and movement present Results Reviewed Results Reviewed: Noninvasive arterial testing dated 03/11/2025 demonstrates triphasic waveforms all the way down. Written report and images were reviewed. Assessment & Plan Assessment & Plan (1) PAD (peripheral artery disease): Code(s): I73.9 - Peripheral vascular disease, unspecified Category: Medical Plan: In short patient does not have evidence of peripheral vascular disease. She does have palpable arterial pulses and noninvasive testing has shown to be within normal limits. I do believe this appears to be more neurogenic in nature. She has seen [facility] in the past and is now scheduled to see [facility] pain management. I do think that will be some benefit to her. We also did discuss routine risk factor modification including weight loss. She will follow up with us on an as-needed basis. Thank you for allowing us to participate in her care. If there are any questions or concerns please do not hesitate to contact us. Coding Level of Care Code New Pt Level 4 (09878) Complex EM visit Add On G2211 Diagnoses PAD (peripheral artery disease) I73.9
--- OUTSIDE RECORDS SUMMARY | 2025-03-17 12:34 | XMS_ITS | Data Portability ---
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 Reviewed with the patient [...] CT, maxillofa cial, w/o contrast 2023 024 [id number] [facility] [place], [facility], [address] [address], [place], [address], 10/08/2024 15:43:52 Medication Orders ipratropi um bromide 21 mcg (0.03 %) nasal spray 2024 025 [facility], [address] [facility], [place], [address], 12/31/2024 08:50:35 Patient TargetsNo targets recorded. Patient Instructions Encounter Date Encounter Id Patient Instructions Last Modified By Organization Details Last Modified Time 11/12/2024 [id number] Nursing Documentation for Allergy Testing: Ordering Provider Dr. Rivera Weight:lbs: 275kg: PFT Yes With Bronchodilator valeria Vallecillo approval needed to proceed with allergy testing? Yes Dr. Hernandez ok'd testing RASTHistory of Asthma:Yes Asthma Meds:breo, incruse, montelukast Last used: Asthma exacerbated by: Chance that : No Fear of needles: Yes Regular medications reviewed in Computer: Yes Medication allergies: NKDA Antihistamine use: No Medications used: Food Allergies: tomatoes and watermelon Any foods make your mouth feeling itchy: Yes If yes:cantelope and tomato gives bumps History of severe reaction where had to go to ER? No If yes details: Type of heat in home: Forced Air Pets: No If yes: Smoker: If former smoker-how much 5 / day for how long 10 yrs When quit 20 yrs years ago Smoking now-how much /day for how long Occupation/Social History: Symptoms having: Congestion If other: Frequency Year Round Spirometry Contraindications: Heart attack in the last 3 months: No Major surgery in last 3 months: No Detached retina(serious eye issues) in last 2 months: No Hospitilization in last month: No Proceed with PFT Yes approval needed: No Nursing Notes: Pt tolerated test well n/a Benadryl cream to test sites n/a Patient became syncopal-placed in supine position n/a Large reactions to MQT, reschedule IDT for a different date n/a Other: Pt presents for allergy testing. Due to elevated bp due to holding her beta ghislaine and other 3 meds and having poor pfts Dr. Hernandez wanted pt to have RAST and to follow up with Dr. Rivera to figure out next steps Written by: SHRUTI Padilla Not available 11/12/2024 10:43:53 12/31/2024 [id number] Patient appears to have nonallergic/vasomo tor rhinitis with postnasal drip. This is likely [...] Abnormal Flag Note LastModifiedBy Organization Detail LastModifiedTime 11/12/19 25 11/12/2024 ALLER GENS, ZONE 1 class description Commen [...] >100. 00 Very High Not Available [facility] ([facility]) [address] [place], [address], 11/14/2024 12:20:42 11/12/19 25 11/14/2024 ALLER GENS, ZONE 1 X789-OtC D pteronyssinu s <0.10 kU/L class 0 Not Available [facility] ([facility]) [address] [place], [address], 11/14/2024 12:20:42 11/12/19 25 11/14/2024 ALLER GENS, ZONE 1 Y577-VcZ D farinae <0.10 kU/L class 0 Not Available [facility] ([facility]) [address] [place], [address], 11/14/2024 12:20:42 11/12/19 25 11/14/2024 ALLER GENS, ZONE 1 F056-WqJ CAT dander <0.10 kU/L class 0 Not Available [facility] ([facility]) [address] [place], [address], 11/14/2024 12:20:42 11/12/19 25 11/14/2024 ALLER GENS, ZONE 1 U753-PsM dog dander <0.10 kU/L class 0 Not Available [facility] ([facility]) [address] [place], [address], 11/14/2024 12:20:42 11/12/19 25 11/14/2024 ALLER GENS, ZONE 1 b642-BqO bermuda grass <0.10 kU/L class 0 Not Available [facility] ([facility]) [address] [place], [address], 11/14/2024 12:20:42 11/12/19 25 11/14/2024 ALLER GENS, ZONE 1 c028-ZkC bluegrass, [place] 0.14 kU/L class 0/I abnormal Not Available [facility] ([facility]) [address] [facility], [place], [address], 11/14/2024 12:20:42 11/12/19 25 11/14/2024 ALLER GENS, ZONE 1 z923-XgD bahia grass <0.10 kU/L class 0 Not Available [facility] ([facility]) [address] [facility], [place], [address], 11/14/2024 12:20:42 11/12/19 25 11/14/2024 ALLER GENS, ZONE 1 C014-RhR cockroach, south korean <0.10 kU/L class 0 Not Available [facility] ([facility]) [address] [place], [address], 11/14/2024 12:20:42 11/12/19 25 11/14/2024 ALLER GENS, ZONE 1 X231-JoM penicillium chrysogen <0.10 kU/L class 0 Not Available [facility] ([facility]) [address] [place], [address], 11/14/2024 12:20:42 11/12/19 25 11/14/2024 ALLER GENS, ZONE 1 M910-HjJ cladosporium herbarum <0.10 kU/L class 0 Not Available [facility] ([facility]) [address] [place], [address], 11/14/2024 12:20:42 11/12/19 25 11/14/2024 ALLER GENS, ZONE 1 X953-ZrH aspergillus fumigatus <0.10 kU/L class 0 Not Available [facility] ([facility]) [address] [place], [address], 11/14/2024 12:20:42 11/12/19 25 11/14/2024 ALLER GENS, ZONE 1 W096-CjS mucor racemosus <0.10 kU/L class 0 Not Available [facility] ([facility]) [address] [place], [address], 11/14/2024 12:20:42 11/12/19 25 11/14/2024 ALLER GENS, ZONE 1 B341-KhR alternaria alternata <0.10 kU/L class 0 Not Available [facility] ([facility]) [address] [place], [address], 11/14/2024 12:20:42 11/12/19 25 11/14/2024 ALLER GENS, ZONE 1 F889-BsN stemphylium herbarum <0.10 kU/L class 0 Not Available [facility] ([facility]) [address] [place], [address], 11/14/2024 12:20:42 11/12/19 25 11/14/2024 ALLER GENS, ZONE 1 K574-JwT common silver birch 0.12 kU/L class 0/I abnormal Not Available [facility] ([facility]) [address] [place], [address], 11/14/2024 12:20:42 11/12/19 25 11/14/2024 ALLER GENS, ZONE 1 A982-SnD oak, white <0.10 kU/L class 0 Not Available [facility] ([facility]) [address] [place], [address], 11/14/2024 12:20:42 11/12/19 25 11/14/2024 ALLER GENS, ZONE 1 J683-OeP elm, south korean <0.10 kU/L class 0 Not Available [facility] ([facility]) [address] [place], [address], 11/14/2024 12:20:42 11/12/19 25 11/14/2024 ALLER GENS, ZONE 1 A511-UfM carmelita, white <0.10 kU/L class 0 Not Available [facility] ([facility]) [address] [facility], [place], [address], 11/14/2024 12:20:42 11/12/19 25 11/14/2024 ALLER GENS, ZONE 1 H066-OpC maple/box elder <0.10 kU/L class 0 Not Available [facility] ([facility]) [address] [facility], [place], [address], 11/14/2024 12:20:42 11/12/19 25 11/14/2024 ALLER GENS, ZONE 1 P657-VyO hazelnut tree <0.10 kU/L class 0 Not Available [facility] ([facility]) [address] [facility], [place], [address], 11/14/2024 12:20:42 11/12/19 25 11/14/2024 ALLER GENS, ZONE 1 B400-QnD hickory, white <0.10 kU/L class 0 Not Available [facility] ([facility]) [address] [facility], [place], [address], 11/14/2024 12:20:42 11/12/19 25 11/14/2024 ALLER GENS, ZONE 1 N534-ZpS white mulberry <0.10 kU/L class 0 Not Available [facility] ([facility]) [address] [facility], [place], [address], 11/14/2024 12:20:42 11/12/19 25 11/14/2024 ALLER GENS, ZONE 1 Y364-XaY cedar, mountain <0.10 kU/L class 0 Not Available [facility] ([facility]) [address] [facility], [place], [address], 11/14/2024 12:20:42 11/12/19 25 11/14/2024 ALLER GENS, ZONE 1 D225-KpX ragweed, short 0.21 kU/L class 0/I abnormal Not Available [facility] ([facility]) [address] [facility], [place], [address], 11/14/2024 12:20:42 11/12/19 25 11/14/2024 ALLER GENS, ZONE 1 N194-HwE mugwort <0.10 kU/L class 0 Not Available [facility] ([facility]) [address] [facility], [place], [address], 11/14/2024 12:20:42 11/12/19 25 11/14/2024 ALLER GENS, ZONE 1 H810-HfE plantain, spanish <0.10 kU/L class 0 Not Available [facility] ([facility]) [address] [facility], [place], [address], 11/14/2024 12:20:42 11/12/19 25 11/14/2024 ALLER GENS, ZONE 1 A703-PkD pigweed, common <0.10 kU/L class 0 Not Available [facility] ([facility]) [address] [facility], [place], [address], 11/14/2024 12:20:42 11/12/19 25 11/14/2024 ALLER GENS, ZONE 1 D243-KtK sheep sorrel <0.10 kU/L class 0 Not Available [facility] ([facility]) [address] [place], [address], 11/14/2024 12:20:42 11/12/19 25 11/14/2024 ALLER GENS, ZONE 1 H680-NrT nettle <0.10 kU/L class 0 Not Available [facility] ([facility]) [address] [place], [address], 11/14/2024 12:20:42 11/12/19 25 11/14/2024 IMMUN OGLOB ULIN E, TOTAL immunoglobul in E, total 2 IU/mL 6-495 below low normal Not Available [facility] ([facility]) [address] [facility], [place], [address], 11/14/2024 12:20:42 10/08/19 25 10/07/2024 CT, maxil lofac ial, w/o contr ast No observ ation record ed. [email or web address] [facility] [address], [address], 10/09/2024 09:16:23 10/08/19 25 10/07/2024 CT, maxil lofac ial, w/o contr ast No observ ation record ed. [email or web address] [facility] [place] [address] [address], [place], [address], 10/09/2024 09:16:23 10/08/19 25 10/07/2024 CT, maxil lofac ial, w/o contr ast No observ ation record ed. BARCODE [facility] [place] [address], [address], 10/08/2024 16:03:22 11/12/19 25 mary metry testi ng* No observ ation record ed. [email or web address] Not Available 2024 18:02:42 Result Notes None recorded. Problems Name Problem SNOMED Code Status Onset Date Resolution Date Notes Provider Name and Address Organization Details Recorded Time Severe obesity 50607942007 104 Active 2020 Morbid (severe) obesity due to excess calories; Note: Date Diagnosed : 06/16/2021 11:31 AM (E66.01) Not Available [facility] 4 03:25:06 Obstructi ve sleep apnea syndrome 75805531 Active 2020 Obstructi ve sleep apnea (adult) (pediatri c); Note: Date Diagnosed : 06/16/2021 11:31 AM (G47.33) Not Available [facility] 4 03:25:07 Uncomplic ated asthma 106050890 Active 2020 Unspecifi ed asthma, uncomplic ated; Note: Date Diagnosed : 06/16/2021 11:31 AM (J45.909) Not Available [facility] 4 03:25:07 Allergic rhinitis caused by pollen 66705684 Active 2020 Allergic rhinitis due to pollen; Note: Date Diagnosed : 06/16/2021 11:31 AM (J30.1) Not Available [facility] 4 03:25:06 Chronic sinusitis 25786389 Active 2023 LILLIAM VELAZQUEZ PA-C [address], [place], [address] , [facility] - [facility] 4 11:00:07 Atypical facial pain 78566494 Active 2024 LILLIAM VELAZQUEZ PA-C [address], [place], [place], [address] , [facility] - [facility] 5 15:35:35 Allergic rhinitis 14993842 Active 2024 ETELVINA LANCASTER Dannielle [address], [place], [address] , [facility] - [facility] 5 09:19:15 Posterior rhinorrhe a 42502465 Active 2024 FER ZAVALA MD [address], [place], [address] , [facility] - [facility] 5 08:49:08 Chronic rhinitis 19265980 Active 2024 FER ZAVALA MD [address], [place], [address] , [facility] - [facility] 5 08:49:14 Problem Notes None recorded. Procedures Surgical History Date Name Laterality Status Provider Name and Address Organization Details Recorded Time 4 JMSNasal/Sinus Endoscopy completed LILLIAM VELAZQUEZ PA-C [address], [place], [address], [facility] - [facility] 09/19/2024 12:23:56 Imaging Results None recorded. Procedure Notes None recorded. Medical Equipment None Reported. Allergies No known drug allergies Medications Name Sig Start Date Stop Date Status Note LastModified by Organization Details LastModified Time amoxicill in 500 mg capsule TAKE 1 CAPSULE BY MOUTH EVERY 8 HOURS FOR 7 DAYS 11/04 completed Not Available Not Available Not Available furosemid e 40 mg tablet 12/31 completed Medicati on ID: [id number] B rand Name: lisset calhoun Send Method: [...] mg tablet 12/31 completed Medicati on ID: [id number] B rand Name: metoprol ol tartrate Send [...] mg capsule 11/12 completed Medicati on ID: [id number] B rand Name: gabapent in Send Method: [...] %) nasal spray active Medicati on ID: [id number] B rand Name: azelasti braeden Send Method: E-Prescr ibed Sub s Allowed: [...] mg tablet 12/31 completed Medicati on ID: [id number] B rand Name: spironol actone S end Method: E-Prescr ibed Sub s Allowed: subs CATARINO Pondi al Instruct ion: TAKE 1 TABLET BY MOUTH ONCE DAILY. STOP POTASSIU M SUPPLEME NT. Medi cationGe nericNam e: [...] layed release 12/31 completed Medicati on ID: [id number] B rand Name: Prilosec OTC Send Method: E-Prescr ibed Sub s Allowed: subs CATARINO Pondi al Instruct ion: TAKE 1 TABLET BY [...] unit) capsule 12/31 completed Medicati on ID: [id number] B rand Name: Vitamin D3 Send Method: E-Prescr ibed Sub s Allowed: subs OK Medic ationGen ericName : Vitamin D3 Not Available Not Available Not Available Incruse Ellipta 62.5 mcg/actua tion powder for inhalatio n 12/31 completed Medicati on ID: [id number] B rand Name: Incruse Ellipta Send Method: E-Prescr ibed Sub s Allowed: subs OK Speci al Instruct ion: INHALE 1 PUFF BY MOUTH ONCE DAILY Me dication GenericN judith: Incruse Ellipta Not Available Not Available Not Available Breo Ellipta 200 mcg-25 mcg/dose powder for inhalatio n 12/31 completed Medicati on ID: [id number] B rand Name: Breo Ellipta Send Method: [...] Available Vitals Date Recorded Body height Body mass index (BMI) Body weight Provider Name and Address Organization Details Last Updated DateTime 11/04/2024 165.1 cm 45.8 kg/m2 774468.9 g Emily Ba [place] - [facility] 11/04/2024 14:55:31 Date Recorded Body height Body mass index (BMI) Body weight Oxygen saturation Oxygen saturation in Arterial blood by Pulse oximetry Heart rate Systolic blood pressure Diastolic blood pressure Systolic blood pressure Diastolic blood pressure Provider Name and Address Organization Details Last Updated DateTime 165.1 cm 45.8 kg/m2 895926. 9 g 98 % 98 % 76 /min 160 mm[Hg] 94 mm[Hg] 172 mm[Hg] 96 mm[Hg] ETELVINA KORMED, RMA [address], [address], [place] - [facility] 10:14:58 Date Recorded Body height Body weight Provider Name and Address Organization Details Last Updated DateTime 12/31/2024 165.1 cm 050881.9 g Susan Crum [place] [facility] 12/31/2024 08:32:27 Date Recorded Body weight Body mass index (BMI) Body height Provider Name and Address Organization Details Last Updated DateTime 09/19/2024 091409.27 g 46.4 kg/m2 165.1 cm Jessica Noé [place] - [facility] 09/19/2024 10:19:27 Social History Question Answer Notes LastModified by Organizat ion Details LastModified Time Tobacco Smoking Status Former Smoker ETELVINA MARTIN, [facility] [address], [address], [facility] - [facility] 11/12/2024 09:17:45 When Did You Quit [...] Disorder N Anesthesia Complications N Heart Attack (OK) N Other Skin Condition N Diabetes N [...] SNOMED-CT Code Diagnosis ICD10 Code Diagnosis Note [id number] FER ZAVALA MD [facility] [address] [place] [address] 09/19/2024 10:02:24 09/19/2024 11:03:03 Allergic rhinitis caused by pollen 49808120 J30.1 Chronic sinusitis 237884 00 J32.9 [id number] LILLIAM VELAZQUEZ PA-C [facility] [address] [place] [address] 11/04/2024 14:44:00 11/04/2024 15:08:34 Allergic rhinitis caused by pollen 62322412 J30.1 Atypical facial pain 713 53753 G50.1 37151 ETELVINA MARTIN [facility] Allergy [address] [place] [address], [place] [address] 11/12/2024 08:46:13 11/12/2024 10:45:34 Allergic rhinitis caused by pollen 27985640 J30.1 [id number] FER ZAVALA MD [facility] [address] [place] [address] 12/31/2024 08:26:16 12/31/2024 08:52:00 Obstructive sleep apnea syndrome 56781760 G47.33 Posterior rhinorrhea 758 29011 R09.82 Chronic rhinitis 8983120 6 J31.0 Health Concerns Section Related Observation LastModified by Organization Detai ls LastModified Time None Recorded Concern Status LastModified by Organization Details LastModified Time None Recorded Advance Directives Directive None Recorded Payers Insurance Date Sequence Insurance Name Policy Number Policy Mei Covered Member ID Mei Member ID Guarantor Name 01/07/2025 1 [place]ARE [place]: [employer] Lynnette Mcgill [id number] Lynnette Mcgill 01/07/2025 2 [place] [facility] Lynnette T Nano [id number] Lynnette Mcgill Notes Date Note Type Note [...] left upper molars. FER RIVERA MD [address], [place], [address], [facility] - [facility] 09/19/2024 12:45:42 11/04/2024 text/html 63 year old kalin linares presents to review CT sinus which was performed at [facility] 10/07/24. She reports that her left maxillary pain is improving. She has allergy tested scheduled. SHRAVAN JUDD MD [address], [place], [address], [facility] - [facility] 11/06/2024 08:24:49 11/12/2024 text/html Pt presents for allergy testing. Due to elevated bp due to holding her beta ghislaine and other 3 meds and having poor pfts Dr. Hernandez wanted pt to have RAST and to follow up with Dr. Rivera to figure out next steps ETELVINA LANCASTER Dannielle [address], [place], [address], [facility] - [facility] 11/12/2024 10:45:27 12/31/2024 text/html Patient with [...] -6hours per night FER RIVERA MD [address], [place], [address], [facility] - [facility] 12/31/2024 08:51:29 OBGyn Episode No OBEpisode recorded.
== END 2025-03-17 11:35 | disposition home or self-care (01) ==
LOC: HO.HVS 11:01
PROVIDERS: PCP Internal Medicine Medical Oncology; Visit Provider Surgery Vascular Surgery
DX: I73.9 Peripheral vascular disease, unspecified (principal)
CPT/HCPCS: 99204; G2211

== ENCOUNTER → 2025-03-17 11:00 | Outpatient (BNVA) | payer MEDICARE, MEDICAID, SELFPAY | PROVIDERS: PCP Internal Medicine Medical Oncology; Visit Provider Surgery Vascular Surgery | DX: I73.9 Peripheral vascular disease, unspecified (principal) | CPT/HCPCS: 99202 ==

== ENCOUNTER 2025-03-30 12:01 | Outpatient (AMB) | payer MEDICARE, MEDICAID, SELFPAY ==
--- OUTSIDE RECORDS SUMMARY | 2025-03-03 06:00 | XMS_ITS ---
Author Organization Yovanny Noel III, MD Address [address] [place] [address] Care Team Providers Care Integration Analyst Name Role Phone Yovanny Noel Primary Care Provider Allergies Allergen (clinical drug ingredient) Drug/Non Drug Allergy documented on EMR Reaction Allergy Type Onset Date Status No Known Drug Allergy Unknown Drug Allergy Active Reason For Referral Reason severe back pain e valuate for neurostimulator Diagnosis 1 Lumbar radiculopathy (M54.16) Diagnosis 2 Severe back pain (M5 4.9) Referral Organization Yovanny Noel III, MD Referring Provider First Name Yovanny Referring Provider Last Name Sadie Referring Provider Speciality Internal M edicine Referred Provider [facility] er, Pain Management Referred Provider Specialty Pain Medicin e General Notes Leatha Wood CMA 03/10 09:50:49 AM >ref/demo/progress note /MRI faxed to Pain management at , Leatha Wood CMA 03/17/2025 11:18:38 AM > I called pain management [phone] they stated pt has appt on 03/30/2025 12:00pm Referral Priority Routine Referral Appointment Date 03/30/2025 REASON FOR VISIT Pain left foot, Asthma, Depression, Morbid obesity, Hypertension, Sleep, Chronic kidney disease Medications Medication SIG (Take, Route, Frequency, Duration) Notes Start Date End Date Status dexAMETHasone 2 MG 1 tablet Orally ever y 12 hrs 10/21/2024 Active Senna Laxative 8.6 MG 1 tablet Orally tw ice a day 12/29/2024 Active Clopidogrel Bisulfate 75 MG TAKE 1 TABLE T BY MOUTH ONCE DAILY Orally Once a day Active dexAMETHasone 2 MG 1 tablet Orally teic e a day 01/27/2025 Active Pregabalin 75 MG 1 capsule Orally Onc e a day 01/27/2025 Active Meloxicam 15 MG Take 1 tablet by paras th once daily Active guaiFENesin-Codeine 100-10 MG/5ML 10 [...] thr ee times a day 01/23/2023 Active Benzonatate 200 MG 1 capsule as needed Orally Three times a day 06/24/2024 Active Simvastatin 40 MG Take 1 tablet by paras th in the evening Orally Once a day Active Polyethylene Glycol 3350 17 GM 1 packet mixed with 8 ounces of fluid Orally Once a day Active Pregabalin 50 MG 1 capsule Orally Twi ce a day Active Furosemide 40 MG 1 tablet Orally Once a day 02/15/2021 Active K-Tab 10 MEQ 1 tablet with food Orally Once a day 02/15/2021 Active amLODIPine Besylate 10 MG 1 tablet Orall y Once a day Active Cyclobenzaprine HCl 10 MG as directed Or ally three times a day 08/15/2022 Active Combivent 18-103 MCG/ACT 2 puffs Inhalat ion Six times a day Active Ibuprofen 800 MG 1 tablet Orally Thre e times a day 07/28/2016 Active Advair Diskus 500-50 MCG/DOSE 1 puff Inh alation every 12 hrs Active Montelukast Sodium 10 MG 1 tablet in the evening Orally Once a day Active Flonase 50 MCG/ACT 1 spray in each nost ril Nasally Once a day 09/28/2023 Active Escitalopram Oxalate 20 MG 1 tablet Oral ly Once a day 12/29/2021 Active Metoprolol Tartrate 100 MG Take 1 tablet by mouth twice daily with food Active Pantoprazole Sodium 20 MG 1 tablet 1/2 t o 1 hour before morning meal Orally Once a day 10/27/2024 Active Esomeprazole Magnesium 40 MG Take 1 caps ule by mouth once daily Active hydrALAZINE HCl 50 MG 1 tablet with food Orally Four times a day Active Lisinopril 40 MG Take 1 tablet by paras th once daily Active Social History Tobacco Use: Social History [...] Problem Status W/U Status Risk Notes Problem [id number] Left foot pain (M79.672 ) Active confirmed This has been present for 2 weeks. It is worse when she bears weight. The examination was unremarkable. An x-ray has been ordered. Vital Signs Temperature 97.2 degrees Fahrenheit 03/03/20 25 Blood pressure systolic 146 mm Hg 03/03/20 25 Blood pressure diastolic 79 mm Hg 025 Heart Rate 72 /min 03/03/2025 Height 63 in 03/03/2025 Weight 267 lbs 03/03/2025 BMI 47.29 kg/m2 03/03/2025 Encounters Encounter Location Date Provider Diagnosis Yovanny Noel III, MD [address] [place] [address] [place] [address] 03/03/2025 Yovanny Noel Left foot pain M79.6 72 ; Other and unspecified hyperlipidemia E78.5 ; Nontoxic uninodular goiter E04.1 ; Former smoker Z87.891 ; Essential hypertension I10 ; Asthma J45.909 ; Morbid obesity E66.01 ; Lumbar radiculopathy M54.16 ; Sleep apnea in adult G47.30 and Reactive depression F32.9 Assessments Encounter Date Diagnosis (ICD Code) Assessment Notes Treat ment Notes Treatment Clinical Notes 03/03/2025 Left foot pain (ICD-10 - M79.672) This has been present for 2 weeks. It is worse when she bears weight. The examination was unremarkable. An x-ray has been ordered. 03/03/2025 Other and unspecified hyperlipidemia (ICD-10 - E78.5) Comprehensive blood work with a fasting lipid profile is being done periodically.The most recent total cholesterol was within normal limits. 03/03/2025 Nontoxic uninodular goiter (ICD-10 - E04.1) Her thyroid is not palpable today. She appears to be euthyroid. This problem will be followed closely. 03/03/2025 Former smoker (ICD-10 - Z87.891) She is highly motivated to not smoke. We have discussed a strategy for maintenance of abstinence in times of stress and illness. 03/03/2025 Essential hypertension (ICD-10 - I10) Her blood pressure was slightly high today. She has been compliant with her medications. He was given an appointment in the very near future to return to measure it again. If it remains high we'll communicate with the carpenter inspector. 03/03/2025 Asthma (ICD-10 - J45.909) She has bbeen free of asthma lately. There was no wheezing today. She was breathing room air comfortably. Current therapy was continued. 03/03/2025 Morbid obesity (ICD-10 - E66.01) She continues to participate in the weight-loss program. She has lost 12 pounds since October 31, 2024. She will continue on her current therapies without change. She will be seen frequently to weigh her and form of support. 03/03/2025 Lumbar radiculopathy (ICD-10 - M54.16) She continues [...] does not have arterial disease or venous 03/03/2025 Sleep apnea in adult (ICD-10 - G47.30) She continues to use her CPAP. 03/03/2025 Reactive depression (ICD-10 - F32.9) She has been taking citalopram only intermittently. She will continue to take it on a daily basis. Follow-up visit near future was scheduled. Plan Of Treatment Medication Medication Name Sig Start Date Stop Date Notes dexAMETHasone 2 MG 1 tablet Orally ever y 12 hrs 10/21/2024 Senna Laxative 8.6 MG 1 tablet Orally tw ice a day 12/29/2024 Clopidogrel Bisulfate 75 MG TAKE 1 TABLE T BY MOUTH ONCE DAILY Orally Once a day dexAMETHasone 2 MG 1 tablet Orally teic e a day 01/27/2025 Pregabalin 75 MG 1 capsule Orally Onc e a day 01/27/2025 Meloxicam 15 MG Take 1 tablet by paras th once daily guaiFENesin-Codeine 100-10 MG/5ML 10 mL as needed Orally every 6 hrs 07/22/2024 Lisinopril 20MG TAKE ONE TABLET BY M OUTH EVERY DAY Loratadine 10 MG 1 tablet Orally Once a day 07/22/2024 Guaiatussin AC 100-10 MG/5ML 10 mL as ne eded Orally every 6 hrs 07/22/2024 Gabapentin 300 MG 1 capsule Orally thr ee times a day 01/23/2023 Benzonatate 200 MG 1 capsule as needed Orally Three times a day 06/24/2024 Simvastatin 40 MG Take 1 tablet by paras th in the evening Orally Once a day Polyethylene Glycol 3350 17 GM 1 packet mixed with 8 ounces of fluid Orally Once a day Pregabalin 50 MG 1 capsule Orally Twi ce a day Furosemide 40 MG 1 tablet Orally Once a day 02/15/2021 K-Tab 10 MEQ 1 tablet with food O rally Once a day 02/15/2021 amLODIPine Besylate 10 MG 1 tablet Orally Once a day Cyclobenzaprine HCl 10 MG as directed Or ally three times a day 08/15/2022 Combivent 18-103 MCG/ACT 2 puffs Inhalat ion Six times a day Ibuprofen 800 MG 1 tablet Orally Thre e times a day 07/28/2016 Advair Diskus 500-50 MCG/DOSE 1 puff Inh alation every 12 hrs Montelukast Sodium 10 MG 1 tablet in the evening Orally Once a day Flonase 50 MCG/ACT 1 spray in each nost ril Nasally Once a day 09/28/2023 Escitalopram Oxalate 20 MG 1 tablet Orally Once a day 12/01 Metoprolol Tartrate 100 MG Take 1 tablet by mouth twice daily with food Pantoprazole Sodium 20 MG 1 tablet 1/2 t o 1 hour before morning meal Orally Once a day 10/27/2024 Esomeprazole Magnesium 40 MG Take 1 caps ule by mouth once daily hydrALAZINE HCl 50 MG 1 tablet with food Orally Four times a day Lisinopril 40 MG Take 1 tablet by paras th once daily Referrals Referral Date Details 03/03/2025 03/03/2025, severe b ack pain evaluate for neurostimulator, Pain Management [facility] Next Appt Details Follow Up: TV after consult with pain management, Reason: TV Provider Name:Yovanny Noel, 03/31/2025 09:30:00 AM, [address] [place] [address] [address], [place], [phone], Provider Name:Yovanny Noel, 04/07/2025 10:00:00 AM, [address] [place] [address] [address], [place], [id number], Provider Name:Yovanny Noel, 10/05/2025 10:30:00 AM, [address] [place] [address] [address], [place]ME[place], [phone], Progress Notes * Lynnette MCGILL TDOB: [birth year] (64 yo F)Acc No.[id number]:03/03/2025 Progress Notes Patient: Lynnette POLLOCK Provider: Preston Noel MD :1960 A ge:64 Y S ex:Female Date:03/03/2025 Address:[address] [place] [id number] Subjective: * Chief Complaints: * P ain left footAsthmaDepressionMorbid obesityHypertensionSleepChronic kidney disease * HPI: C OVID-19 Screening: She returns a month after her last visit because of pain in her left foot. Her breathing has been stable recently and she is not bothered by the pollen. She recently saw Dr. Lee, her criminal research specialist. Pain in her foot is on the bottom of her foot where examination shows no abnormalities an x-ray of the foot has been requested. She is using her CPAP machine. Questions H ave you had any new onset fever, chills, cough, congestion, sore throat, shortness of breath, muscle aches? N o * ROS: G eneral/Constitutional: pain L eft foot and low back. C hills d enies. F atigue a dmits. F ever d enies. E NT: Decreased hearing d enies. R espiratory: Cough d enies. C ardiovascular: Chest pain with exertion d enies. D yspnea on exertion?with moderate activity. S hortness of breath w ith exertion. G astrointestinal: Constipation d enies. D ecreased appetite d enies.?Diarrhea d enies. H eartburn d enies. N ausea d enies. R ectal bleeding?denies. V omiting d enies. H ematology: bruising d enies. p etechiae d enies. S wollen glands n one have been noted. G enitourinary: Frequent urination a t night. M usculoskeletal: Muscle aches d enies. P ainful joints d enies. S ciatica d enies. W eakness d enies. S kin: Itching d enies. R carmelita d enies. S kin lesion(s)?denies. N eurologic: Difficulty speaking d enies. D izziness d enies.?Headache d enies. L ow back pain d enies. P sychiatric: Depressed mood w hich is mild. * Medical History: * Surgical History: h ysterectomy for bleeding Cardiac Catheterization 1Sleeve Gastrectomy [facility] 09/14/21No history * Hospitalization/Major Diagno stic Procedure: r e: Hypertension 07/2018CVA 07/2020No history * Family History: F ather: 70 yrs, kidney failure, hypertension, alcoholism, diagnosed with HTN. M other: alive 68 yrs, breast cancer, depression, hypertension, diagnosed with HTN, Cancer. 1 brother(s) , 3 sister(s) - healthy. 2 son(s) , 2 daughter(s) - healthy. . * Social History: T obacco Use: T obacco Control (Standard) T obacco use: F ormer smoker H ow long has it been since you last smoked??Greater than 10 years A dditional Findings: Tobacco non-user E x-cigarette smoker S he is single and working at a local [employer]. She has four children, 2 of each, Emir, Fuentes, Benson, Marie. She was born in [place]. * Medications: T akinghydrALAZINE HCl 50 MG Tablet 1 tablet with [...] as directed Orally three times a day Gabapentin 300 MG Capsule 1 capsule Orally three times a day Simvastatin 40 MG Tablet Take 1 tablet by mouth in the evening Orally Once a day Polyethylene Glycol 3350 [...] mL as needed Orally every 6 hrs Clopidogrel Bisulfate 75 MG Tablet TAKE 1 TABLET BY MOUTH ONCE DAILY Orally Once a day dexAMETHasone 2 MG Tablet 1 tablet Orally every 12 hrs Senna Laxative 8.6 MG Tablet 1 tablet Orally twice a day dexAMETHasone 2 MG Tablet 1 tablet Orally teice a day Pregabalin 75 MG Capsule 1 capsule Orally Once a day Lisinopril 40 MG Tablet Take 1 tablet by mouth once daily Taking hydrALAZINE HCl 50 MG Tablet 1 [...] directed Orally three times a day Taking Gabapentin 300 MG Capsule 1 capsule Orally three times a day Taking Simvastatin 40 MG Tablet Take 1 tablet by mouth in the evening Orally Once a day Taking Polyethylene Glycol [...] as needed Orally every 6 hrs Taking Clopidogrel Bisulfate 75 MG Tablet TAKE 1 TABLET BY MOUTH ONCE DAILY Orally Once a day Taking dexAMETHasone 2 MG Tablet 1 tablet Orally every 12 hrs Taking Senna Laxative 8.6 MG Tablet 1 tablet Orally twice a day Taking dexAMETHasone 2 MG Tablet 1 tablet Orally teice a day Taking Pregabalin 75 MG Capsule 1 capsule Orally Once a day Taking Lisinopril 40 MG Tablet Take 1 tablet by mouth once daily DiscontinuedPregabalin 50 MG Capsule 1 capsule Orally Twice a day Lisinopril 20MG Tablet TAKE ONE TABLET BY MOUTH EVERY DAY Medication List reviewed and reconciled with the patientDiscontinued Pregabalin 50 MG Capsule 1 capsule Orally Twice a day Discontinued Lisinopril 20MG Tablet TAKE ONE TABLET BY MOUTH EVERY DAY Medication List reviewed and reconciled with the patient * Allergies: N o Known Drug Allergyno[Allergies Verified] Objective: * Vitals: H t: 63, Wt: 267, BMI:47.29, BP: 146/79, HR: 72, Temp: 97.2, Ht-cm: 160.02, Wt-k.11. * P ast Orders: L ab:B Type Natriuretic Peptide (Order Date - 12/24/2024) (Collection Date & Time - 12/24/2024 11:13 AM) Value Reference Range B Type Natriuretic Peptide 64 <100 - pg/mL L ab:Troponin-I High Sensitivity (Order Date - 12/24/2024) (Collection Date & Time - 12/24/2024 11:13 AM) Value Reference Range Troponin-I High Sensitivity < 2.7 <3.5-17.0 - ng/L Lab:Basic Metabolic Panel * Collection Date 12/24/2024 04/21/2024 Collection Time 11:13 AM 09:56 AM Order Date 12/24/2024 04/21/2024 Sodium 141 (Ref Range: 135-145 mmol/L) 143 (Ref Range: 135-145 mmol/L) Blood Urea Nitrogen 32 H (Ref Range: 9-16 mg/dL) 27 H (Ref Range: 9-16 mg/dL) Creatinine 1.28 (Ref Range: 0.5-1.4 mg/dL) 1.40 (Ref Range: 0.5-1.4 mg/dL) Glucose Random 80 (Ref Range: 60-115 mg/dL) 85 (Ref Range: 60-115 mg/dL) Calcium 9.8 (Ref Range: 8.4-10.2 mg/dL) 10.0 (Ref Range: 8.4-10.2 mg/dL) Potassium 3.8 (Ref Range: 3.3-5.1 mmol/L) 4.0 (Ref Range: 3.3-5.1 mmol/L) Chloride 114 H (Ref Range: 96-108 mmol/L) 115 H (Ref Range: 96-108 mmol/L) Carbon Dioxide 20 L (Ref Range: 22-29 mmol/L) 20 L (Ref Range: 22-29 mmol/L) Anion Gap 11 L (Ref Range: 12-20) 12 (Ref Range: 12-20) Estimated Glomerular Filt Rate 42 38 * Lab:Complete Blood Count no Diff * Collection Date 12/24/2024 04/21/2024 Collection Time 11:13 AM 09:56 AM Order Date 12/24/2024 04/21/2024 White Blood Count 5.0 (Ref Range: 4.8-10.8 X10*3/uL) 5.3 (Ref Range: 4.8-10.8 X10*3/uL) Red Blood Count 4.10 L (Ref Range: 4.20-5.50 X10*6/uL) 4.17 L (Ref Range: 4.20-5.50 X10*6/uL) Hemoglobin 11.0 L (Ref Range: 12.0-16.0 g/dl) 10.8 L (Ref Range: 12.0-16.0 g/dl) Hematocrit 34.2 L (Ref Range: 37.0-47.0 %) 34.3 L (Ref Range: 37.0-47.0 %) Mean Corpuscular Volume 83.4 (Ref Range: 80.0-98.0 fL) 82.3 (Ref Range: 80.0-98.0 fL) Mean Corpuscular Hemoglobin 26.8 L (Ref Range: 27.0-33.0 pg) 25.9 L (Ref Range: 27.0-33.0 pg) Mean Corpuscular HGB [...] 0.0-0.012 X10*3/uL) 0.000 (Ref Range: 0.0-0.012 X10*3/uL) * Examination: G eneral Examination: GENERAL APPEARANCE: p leasant, well nourished, well developed, in no acute distress, calm and relaxed, morbidly obese, woman. HEAD: a traumatic, normocephalic. EYES: e tony, perrla, anicteric, conjugate. EARS: n ormal. NOSE: s eptum intact. ORAL CAVITY: n ormal, unremarkable. NECK/THYROID: n o jugular venous distention, no carotid bruit, thyroid not palpable. LYMPH NODES: n o enlarged lymph nodes,spleen normal. SKIN: n o suspicious lesions, anicteric. HEART: n o clicks, gallops, murmurs, or rubs, regular rhythm, S1, S2 normal, no s3, or vascular bruits. LUNGS: c lear to auscultation, no wheezes, rales, rhonchi.? BREASTS: no masses palpable bilaterally. ABDOMEN: b owel sounds normal, no ascites, no organomegaly, no mass, morbid obesity. RECTAL EXAM: n ot examined. MUSCULOSKELETAL: e xtremities unremarkable, no clubbing, cyanosis or edema. PERIPHERAL PULSES: n ormal. NEUROLOGIC: a lert and oriented, cranial nerves 2-12 grossly intact, deep tendon reflexes 2+ symmetrical, motor strength normal upper and lower extremities, sensory exam intact. PSYCH: a lert, oriented, mood depressed. ? Assessment: * Assessment: 1. L eft foot pain - M79.672 (Primary) N otes :This has been present for 2 weeks. It is worse when she bears weight. The examination was unremarkable. An x-ray has been ordered. 2 . O ther and unspecified hyperlipidemia - E78.5 N otes :Comprehensive blood work with a fasting lipid profile is being done periodically.The most recent total cholesterol was within normal limits. 3 . N ontoxic uninodular goiter - E04.1 N otes :Her thyroid is not palpable today. She appears to be euthyroid. This problem will be followed closely. 4 . F ormer smoker - Z87.891 N otes :She is highly motivated to not smoke. We have discussed a strategy for maintenance of abstinence in times of stress and illness. 5 . E ssential hypertension - I10 N otes :Her blood pressure was slightly high today. She has been compliant with her medications. He was given an appointment in the very near future to return to measure it again. If it remains high we'll communicate with the carpenter inspector. 6 . A sthma - J45.909 N otes :She has bbeen free of asthma lately. There was no wheezing today. She was breathing room air comfortably. Current therapy was continued. 7 . M orbid obesity - E66.01 N otes :She continues to participate in the weight-loss program. She has lost 12 pounds since October 31, 2024. She will continue on her current therapies without change. She will be seen frequently to weigh her and form of support. 8 . L umbar radiculopathy - M54.16 N otes :She continues to have left-sided sciatica which [...] does not have arterial disease or venous 9 . S leep apnea in adult - G47.30 N otes :She continues to use her CPAP. 1 0. R eactive depression - F32.9 N otes :She has been taking citalopram only intermittently. She will continue to take it on a daily basis. Follow-up visit near future was scheduled. Plan: * Treatment: 2. O thers Continue Lisinopril Tablet, 40 MG, Take 1 tablet by mouth once daily; C ontinue hydrALAZINE HCl Tablet, 50 MG, 1 tablet with food, Orally, Four times a day; C ontinue Metoprolol Tartrate Tablet, 100 MG, Take 1 tablet by mouth twice daily with food; C ontinue Pantoprazole Sodium Tablet Delayed Release, 20 MG, 1 tablet 1/2 to 1 hour before morning meal, Orally, Once a day; C ontinue Esomeprazole Magnesium Capsule Delayed Release, 40 MG, Take 1 capsule by mouth once daily; C ontinue Flonase Suspension, 50 MCG/ACT, 1 spray in each nostril, Nasally, Once a day; C ontinue Escitalopram Oxalate Tablet, 20 MG, 1 tablet, Orally, Once a day; C ontinue Advair Diskus Aerosol Powder Breath Activated, 500-50 MCG/DOSE, 1 puff, Inhalation, every 12 hrs; C ontinue Combivent Aerosol, 18-103 MCG/ACT, 2 puffs, Inhalation, Six times a day; C ontinue Ibuprofen Tablet, 800 MG, 1 tablet, Orally, Three times a day; C ontinue Montelukast Sodium Tablet, 10 MG, 1 tablet in the evening, Orally, Once a day; C ontinue amLODIPine Besylate Tablet, 10 MG, 1 tablet, Orally, Once a day; C ontinue Furosemide Tablet, 40 MG, 1 tablet, Orally, Once a day; C ontinue K-Tab Tablet Extended Release, 10 MEQ, 1 tablet with food, Orally, Once a day; C ontinue Cyclobenzaprine HCl Tablet, 10 MG, as directed, Orally, three times a day; C ontinue Pregabalin Capsule, 50 MG, 1 capsule, Orally, Twice a day; C ontinue Gabapentin Capsule, 300 MG, 1 capsule, Orally, three times a day; C ontinue Simvastatin Tablet, 40 MG, Take 1 tablet by mouth in the evening, Orally, Once a day; C ontinue Polyethylene Glycol 3350 Packet, 17 GM, 1 packet mixed with 8 ounces of fluid, Orally, Once a day; C ontinue Benzonatate Capsule, 200 MG, 1 capsule as needed, Orally, Three times a day; C ontinue Meloxicam Tablet, 15 MG, Take 1 tablet by mouth once daily; C ontinue Loratadine Tablet, 10 MG, 1 tablet, Orally, Once a day; C ontinue Guaiatussin AC Syrup, 100-10 MG/5ML, 10 mL as needed, Orally, every 6 hrs As needed; C ontinue guaiFENesin-Codeine Solution, 100-10 MG/5ML, 10 mL as needed, Orally, every 6 hrs; C ontinue Lisinopril Tablet, 20MG, TAKE ONE TABLET BY MOUTH EVERY DAY; C ontinue Clopidogrel Bisulfate Tablet, 75 MG, TAKE 1 TABLET BY MOUTH ONCE DAILY, Orally, Once a day; C ontinue dexAMETHasone Tablet, 2 MG, 1 tablet, Orally, every 12 hrs; C ontinue Senna Laxative Tablet, 8.6 MG, 1 tablet, Orally, twice a day; C ontinue dexAMETHasone Tablet, 2 MG, 1 tablet, Orally, teice a day; C ontinue Pregabalin Capsule, 75 MG, 1 capsule, Orally, Once a day. Referral To:Pain Management [facility] Pain Medicine Reason:severe back pain evaluate for neurostimulator * Procedure Codes: * Preventive Medicine: Counseling: C are goal follow-up plan: Counseling for abnormal BMI given Y es Above Normal BMI Follow-up D ietary management education, guidance, and counseling, Dietary needs education, Exercise promotion: strength training, Exercise promotion: stretching, Feeding regime, Giving encouragement to exercise, Lifestyle education regarding diet, Nutrition / feeding management, Nutrition therapy, Prescribed activity/exercise education, Prescribed diet education, Prescribed dietary intake, Special diet education, Weight monitoring , Intervention, Order not done: Medical or Other reason not done S moking/Tobacco Use Patient counseled on the dangers of tobacco use and urged to quit. 0 03/03/2025 * Follow Up: T V after consult with pain management (Reason: TV) * Images: * Sign off status: Completed true * Provider: Preston Noel MD Date: 03/03/2025 Generated for Noreen fonseca/Joel/Gustabo on: 03/30/2025 12:42 PM EDT History and Physical Notes * [...] venous di stention, no carotid bruit, thyroid not palpable HEART: no clicks, gallops, murmurs, or rubs, regular rhythm, S1, S2 normal, no s3, or vascular bruits LUNGS: clear to auscultatio n, no wheezes, rales, rhonchi ABDOMEN: bowel sounds normal, no ascites, no [...] not examined PSYCH: alert, oriented, moo d depressed ORAL CAVITY: normal, unremarkable Consultation Request Notes Referral Date Referring Provider Referred Provider Not tamie 03/03/2025 Yovanny Noel [facility], Pain Management severe back pain evaluate for neurostimulator
--- NOTE | 2025-03-30 12:02 | A.OFFVIS_ITS ---
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: No Allergies No Known Allergies Allergy (Verified 03/30/25 12:05) Medication List - Last Reconciled 03/30/25 by Wendy Ray LPN albuterol sulfate 2.5 mg (3 mL) inhalation Q4H PRN 30 days albuterol sulfate 90 mcg/actuation 2 inhalations inhalation Q6H PRN 30 days amlodipine 10 mg PO DAILY aspirin (Adult Aspirin Regimen) 81 mg PO DAILY bupropion HCl XL 300 mg PO DAILY cholecalciferol (vitamin D3) 50 mcg PO DAILY clopidogrel 75 mg PO DAILY CPAP (CPAP Machine/Device) As directed escitalopram oxalate 20 mg PO DAILY esomeprazole magnesium 40 mg PO DAILY fluticasone furoate-vilanterol 200-25 mcg/dose (Breo Ellipta) 1 inh inhalation DAILY 30 days fluticasone propionate 50 mcg/actuation 1 spray intranasal DAILY zdlpqeiyzee-ngwzpvdpr-pghjppsq 200-62.5-25 mcg (Trelegy Ellipta) 1 inh inhalation DAILY 30 days hydralazine 50 mg PO QID hydrochlorothiazide 25 mg PO DAILY hydroxyzine HCl 50 mg PO TID lisinopril 40 mg PO DAILY loratadine 10 mg PO DAILY 30 days meloxicam 15 mg PO DAILY metoprolol tartrate 50 mg PO BID montelukast 10 mg PO DAILY 30 days mupirocin 2% 1 appl topical BID 7 days nebulizers As directed oxymetazoline 0.05% (Afrin (oxymetazoline)) 2 sprays intranasal Q12H PRN 5 days potassium chloride ER 10 mEq PO DAILY simvastatin 40 mg PO BEDTIME spironolactone 25 mg PO DAILY 90 days trazodone 100 mg PO BID HPI HPI Lumbar Radiculopathy: Details: History of Present Illness The patient is a 64-year-old female presenting with chronic lower back pain radiating to the left leg. The pain has been persistent for years, extending from the lower back to the toes, and is exacerbated by standing, walking, and sitting. She is unable to stand for more than five minutes due to the pain. The patient has undergone various interventions, including back injections and an S1 transforaminal injection, without relief. She was evaluated by spine surgery but was not considered a surgical candidate due to her weight, despite significant weight loss from nearly 400 pounds. The patient is frustrated with her quality of life, as the pain persists and treatment options have been ineffective. Physical therapy worsened her symptoms, and injections have not been beneficial. Pain Description - Onset: Pain has been present for years. - Quality: Pain radiates from the lower back down to the toes. - Exacerbating factors: Aggravated by standing, walking, and sitting. - Interference: Unable to stand for more than five minutes, affects sleep. Physical Exam - Appears afebrile. - Alert and oriented. - Mood and affect appropriate. - Follows and participates in conversation appropriately. - Respiratory effort is unlabored. - Able to transition from sit to stand unassisted. - Ambulates with bilaterally normal heel strike and toe off. - Able to stand and walk on toes and heels. Results Pain Management - Affect: Patient is frustrated with her quality of life due to persistent pain. - Analgesia: Injections have been ineffective; patient declined further i njections. - Activities of Daily Living: Pain interferes with standing, walking, and sleep. 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 CVA (cerebral vascular accident) DEMI on CPAP Dyspnea Chest pressure Asthma Surgical History History of gastric bypass History of left knee surgery History of hysterectomy Family History Mother Breast cancer HTN (hypertension) Father Kidney disease HTN (hypertension) Maternal Uncle Diabetes Son Diabetes Social History Alcohol intake: never Patient Tobacco Use Status: Never used Tobacco Physical Exam Vital Signs: Last Vital Signs Pulse 72 03/30/25 12:03 Resp 16 03/30/25 12:03 BP 180/83 H 03/30/25 12:03 Pulse Ox 98 03/30/25 12:03 Oxygen Delivery Method Room Air 03/30/25 12:03 BMI result Body Mass Index 43.9 Assessment & Plan Assessment & Plan (1) Lumbar radiculopathy: Code(s): M54.16 - Radiculopathy, lumbar region Category: Medical Plan Plan - Offered interlaminar epidural steroid injection for radiculopathy, declined by patient. - Advised to contact clinic if further injections are desired. Patient was informed and verbally consented to the use of an ambient scribe for clinic note documentation during this visit. Discussion Notes I discussed with the patient that she has been seen by spine surgery and deemed non-surgical. I offered her an interlaminar epidural steroid injection for her radiculopathy in the left leg, but she declined due to previous lack of efficacy. I advised her to contact us if she decides to pursue further injections. Patient Instructions - Contact the clinic if you decide to try injections again. Coding Level of Care Code New Pt Level 3 (98731) Diagnoses Lumbar radiculopathy M54.16
[2025-03-30 12:03] VITALS: BP 180/83; PULSE 72; RESP 16; O2SAT 98; BMI 43.9
--- OUTSIDE RECORDS SUMMARY | 2025-03-30 12:42 | XMS_ITS | Data Portability ---
Author Organization [place] - [facility], Allergy Address [address] [address] Care Team Providers Care Treating And Pumping Supervisor Name Role Phone GHAZALA COX Primary Care [...] review CT sinus which was performed at [facility] 10/07/24. Reviewed with the patient that the scan showed no evidence of sinus disease. I am glad to hear that her facial pain is improving. She will follow up for allergy testing. Not available 11/04/2024 15:35:35 Plan of Treatment Reminders Order Date Submit Date Provider Last Modified By Organization Details Last Modified Time Details Appointments Establish ed 15 2024 11:00A M FILI SEGURA PA-C Not available Not available Not available [...] CT, maxillofa cial, w/o contrast 2023 024 [facility], [address] [place] [address], [facility] [[email or web address]] [address], [place], [address], 10/08/2024 15:43:52 Medication Orders ipratropi um bromide 21 mcg (0.03 %) nasal spray 2024 025 [facility] [address], [address] [place], [address], 12/31/2024 08:50:35 Patient TargetsNo targets recorded. Patient Instructions Encounter Date Encounter Id Patient Instructions Last Modified By Organization Details Last Modified Time 11/12/2024 [id number] Nursing Documentation for Allergy Testing: Ordering Provider Dr. Rivera Weight:lbs: 275kg: PFT Yes With Bronchodilator no approval needed to proceed with allergy testing? [...] SHRUTI Padilla Not available 11/12/2024 10:43:53 12/31/2024 [id number] Patient appears to have nonallergic/vasomo tor rhinitis [...] >100. 00 Very High Not Available [facility] ([facility]) [address] [place], [address], 11/14/2024 12:20:42 11/12/19 25 11/14/2024 ALLER GENS, ZONE 1 G447-VvC D pteronyssinu s <0.10 kU/L class 0 Not Available [facility] ([facility]) [address] [place], [address], 11/14/2024 12:20:42 11/12/19 25 11/14/2024 ALLER GENS, ZONE 1 I223-CbR D farinae <0.10 kU/L class 0 Not Available [facility] ([facility]) [address] [place], [address], 11/14/2024 12:20:42 11/12/19 25 11/14/2024 ALLER GENS, ZONE 1 T208-LiZ CAT dander <0.10 kU/L class 0 Not Available [facility] ([facility]) [address] [place], [address], 11/14/2024 12:20:42 11/12/19 25 11/14/2024 ALLER GENS, ZONE 1 G964-NsT dog dander <0.10 kU/L class 0 Not Available [facility] ([facility]) [address] [place], [address], 11/14/2024 12:20:42 11/12/19 25 11/14/2024 ALLER GENS, ZONE 1 w416-SsL bermuda grass <0.10 kU/L class 0 Not Available [facility] ([facility]) [address] [place], [address], 11/14/2024 12:20:42 11/12/19 25 11/14/2024 ALLER GENS, ZONE 1 l920-RwX bluegrass, [place] 0.14 kU/L class 0/I abnormal Not Available [facility] ([facility]) [address] [place], [address], 11/14/2024 12:20:42 11/12/19 25 11/14/2024 ALLER GENS, ZONE 1 t105-JcV bahia grass <0.10 kU/L class 0 Not Available [facility] ([facility]) [address] [place], [address], 11/14/2024 12:20:42 11/12/19 25 11/14/2024 ALLER GENS, ZONE 1 T862-PeR cockroach, maltese <0.10 kU/L class 0 Not Available [facility] ([facility]) [address] [place], [address], 11/14/2024 12:20:42 11/12/19 25 11/14/2024 ALLER GENS, ZONE 1 C431-PyH penicillium chrysogen <0.10 kU/L class 0 Not Available [facility] ([facility]) [address] [place], [address], 11/14/2024 12:20:42 11/12/19 25 11/14/2024 ALLER GENS, ZONE 1 K883-WzU cladosporium herbarum <0.10 kU/L class 0 Not Available [facility] ([facility]) [address] [place], [address], 11/14/2024 12:20:42 11/12/19 25 11/14/2024 ALLER GENS, ZONE 1 S451-XaV aspergillus fumigatus <0.10 kU/L class 0 Not Available [facility] ([facility]) [address] [place], [address], 11/14/2024 12:20:42 11/12/19 25 11/14/2024 ALLER GENS, ZONE 1 N353-ScJ mucor racemosus <0.10 kU/L class 0 Not Available [facility] ([facility]) [address], [place], [address], 11/14/2024 12:20:42 11/12/19 25 11/14/2024 ALLER GENS, ZONE 1 H940-PlO alternaria alternata <0.10 kU/L class 0 Not Available [facility] ([facility]) [address], [place], [address], 11/14/2024 12:20:42 11/12/19 25 11/14/2024 ALLER GENS, ZONE 1 B522-JzX stemphylium herbarum <0.10 kU/L class 0 Not Available [facility] ([facility]) [address] [facility], [place], [address], 11/14/2024 12:20:42 11/12/19 25 11/14/2024 ALLER GENS, ZONE 1 J964-OwU common silver birch 0.12 kU/L class 0/I abnormal Not Available [facility] ([facility]) [address] [facility], [place], [address], 11/14/2024 12:20:42 11/12/19 25 11/14/2024 ALLER GENS, ZONE 1 K031-CsJ oak, white <0.10 kU/L class 0 Not Available [facility] ([facility]) [address] [facility], [place], [address], 11/14/2024 12:20:42 11/12/19 25 11/14/2024 ALLER GENS, ZONE 1 N179-QwQ elm, maltese <0.10 kU/L class 0 Not Available [facility] ([place] [facility]) [address] [facility], [place], [address], 11/14/2024 12:20:42 11/12/19 25 11/14/2024 ALLER GENS, ZONE 1 P214-RoE carmelita, white <0.10 kU/L class 0 Not Available [facility] ([facility]) [address], [place], [address], 11/14/2024 12:20:42 11/12/19 25 11/14/2024 ALLER GENS, ZONE 1 P197-RmB maple/box elder <0.10 kU/L class 0 Not Available [facility] ([facility]) [address], [place], [address], 11/14/2024 12:20:42 11/12/19 25 11/14/2024 ALLER GENS, ZONE 1 Y743-GwN hazelnut tree <0.10 kU/L class 0 Not Available [facility] ([facility]) [address], [place], [address], 11/14/2024 12:20:42 11/12/19 25 11/14/2024 ALLER GENS, ZONE 1 U303-LrF hickory, white <0.10 kU/L class 0 Not Available [facility] ([facility]) [address], [place], [address], 11/14/2024 12:20:42 11/12/19 25 11/14/2024 ALLER GENS, ZONE 1 H361-NtJ white mulberry <0.10 kU/L class 0 Not Available [facility] ([place] [facility]) [address], [place], [address], 11/14/2024 12:20:42 11/12/19 25 11/14/2024 ALLER GENS, ZONE 1 W931-PgI cedar, mountain <0.10 kU/L class 0 Not Available [facility] ([facility]) [address], [place], [address], 11/14/2024 12:20:42 11/12/19 25 11/14/2024 ALLER GENS, ZONE 1 Q735-SbN ragweed, short 0.21 kU/L class 0/I abnormal Not Available [facility] ([facility]) [address] [place], [address], 11/14/2024 12:20:42 11/12/19 25 11/14/2024 ALLER GENS, ZONE 1 N379-KvP mugwort <0.10 kU/L class 0 Not Available [facility] ([facility]) [address] [place], [address], 11/14/2024 12:20:42 11/12/19 25 11/14/2024 ALLER GENS, ZONE 1 L922-QbE plantain, welsh <0.10 kU/L class 0 Not Available [facility] ([facility]) [address] [place], [address], 11/14/2024 12:20:42 11/12/19 25 11/14/2024 ALLER GENS, ZONE 1 J530-WfP pigweed, common <0.10 kU/L class 0 Not Available [facility] ([facility]) [address] [place], [address], 11/14/2024 12:20:42 11/12/19 25 11/14/2024 ALLER GENS, ZONE 1 D430-OkO sheep sorrel <0.10 kU/L class 0 Not Available [facility] ([facility]) [address] [place], [address], 11/14/2024 12:20:42 11/12/19 25 11/14/2024 ALLER GENS, ZONE 1 X775-NfI nettle <0.10 kU/L class 0 Not Available [facility] ([facility]) [address] [place], [address], 11/14/2024 12:20:42 11/12/19 25 11/14/2024 IMMUN OGLOB ULIN E, TOTAL immunoglobul in E, total 2 IU/mL 6-495 below low normal Not Available [facility] ([facility]) [address] [facility], [place], [address], 11/14/2024 12:20:42 10/08/19 25 10/07/2024 CT, maxil lofac ial, w/o contr ast No observ ation record ed. [email or web address] [facility] [address], [address], 10/09/2024 09:16:23 10/08/19 25 10/07/2024 CT, maxil lofac ial, w/o contr ast No observ ation record ed. [email or web address] [facility] [address] [address], [place], [address], 10/09/2024 09:16:23 10/08/19 25 10/07/2024 CT, maxil lofac ial, w/o contr ast No observ ation record ed. BARCODE [facility] [address] [address], [place], [address], 10/08/2024 16:03:22 11/12/19 25 mary metry testi ng* No observ ation record ed. [email or web address] Not Available 2024 18:02:42 Result Notes None recorded. Problems Name Problem SNOMED Code Status Onset Date Resolution Date Notes Provider Name and Address Organization Details Recorded Time Severe obesity 87691483447 104 Active 2020 Morbid (severe) obesity due to excess calories; Note: Date Diagnosed : 06/16/2021 11:31 AM (E66.01) Not Available [facility] 4 03:25:06 Obstructi ve sleep apnea syndrome 06061229 Active 2020 Obstructi ve sleep apnea (adult) (pediatri c); Note: Date Diagnosed : 06/16/2021 11:31 AM (G47.33) Not Available [facility] 4 03:25:07 Uncomplic ated asthma 511214297 Active 2020 Unspecifi ed asthma, uncomplic ated; Note: Date Diagnosed : 06/16/2021 11:31 AM (J45.909) Not Available [facility] 4 03:25:07 Allergic rhinitis caused by pollen 28289676 Active 2020 Allergic rhinitis due to pollen; Note: Date Diagnosed : 06/16/2021 11:31 AM (J30.1) Not Available [facility] 4 03:25:06 Chronic sinusitis 54505130 Active 2023 LILLIAM VELAZQUEZ PA-C [address], [place], [address] , [place] - [facility] 4 11:00:07 Atypical facial pain 68008299 Active 2024 LILLIAM VELAZQUEZ PA-C [address], [place], [address] , [place] - [facility] 5 15:35:35 Allergic rhinitis 97354113 Active 2024 ETELVINA MARTIN [facility] [address], [place], [address] , [place] - [facility] 5 09:19:15 Posterior rhinorrhe a 12829610 Active 2024 FER ZAVALA MD [address], [place], [address] , [place] - [facility] 5 08:49:08 Chronic rhinitis 37980313 Active 2024 FER ZAVALA MD [address], [place], [address] , [place] - [facility] 5 08:49:14 Problem Notes None recorded. Procedures Surgical History Date Name Laterality Status Provider Name and Address Organization Details Recorded Time 4 JMSNasal/Sinus Endoscopy completed LILLIAM VELAZQUEZ PA-C [address], [place], [address], [place] - [facility] 09/19/2024 12:23:56 Imaging Results None recorded. Procedure [...] mg tablet 12/31 completed Medicati on ID: [id number] B rand Name: lisset calhoun Send Method: [...] mg tablet 12/31 completed Medicati on ID: [id number] B rand Name: metoprol ol tartrate Send [...] mg capsule 11/12 completed Medicati on ID: [id number] B rand Name: gabapent in Send Method: [...] %) nasal spray active Medicati on ID: [id number] Renaldo rand Name: azelasti ne Send Method: E-Prescr [...] mg tablet 12/31 completed Medicati on ID: [id number] B rand Name: spironol actone S end [...] layed release 12/31 completed Medicati on ID: [id number] B rand Name: Prilosec OTC Send Method: [...] unit) capsule 12/31 completed Medicati on ID: [id number] B rand Name: Vitamin D3 Send Method: E-Prescr ibed Sub s Allowed: subs OK Medic ationGen ericName : Vitamin D3 Not Available Not Available Not Available Incruse Ellipta 62.5 mcg/actua tion powder for inhalatio n 12/31 completed Medicati on ID: [id number] B rand Name: Incruse Ellipta Send Method: E-Prescr ibed Sub s Allowed: subs OK Speci al Instruct ion: INHALE 1 PUFF BY MOUTH ONCE DAILY Me dication GenericN judith: Incruse Ellipta Not Available Not Available Not Available Breo Ellipta 200 mcg-25 mcg/dose powder for inhalatio n 12/31 completed Medicati on ID: [id number] B rand Name: Breo Ellipta Send Method: [...] Updated DateTime 11/04/2024 165.1 cm 45.8 kg/m2 865872.9 g Emily Ba [place] - [facility] 11/04/2024 14:55:31 Date Recorded Body height Body mass index (BMI) Body weight Oxygen saturation Oxygen saturation in Arterial blood by Pulse oximetry Heart rate Systolic blood pressure Diastolic blood pressure Systolic blood pressure Diastolic blood pressure Provider Name and Address Organization Details Last Updated DateTime 165.1 cm 45.8 kg/m2 016211. 9 g 98 % 98 % 76 /min 160 mm[Hg] 94 mm[Hg] 172 mm[Hg] 96 mm[Hg] ETELVINA MARTIN, A [address] [facility],[address], [place], [address], [place] - [facility] 10:14:58 Date Recorded Body height Body weight Provider Name and Address Organization Details Last Updated DateTime 12/31/2024 165.1 cm 915694.9 g Susan Chaparroues [place] - [facility] 12/31/2024 08:32:27 Date Recorded Body weight Body mass index (BMI) Body height Provider Name and Address Organization Details Last Updated DateTime 09/19/2024 332495.27 g 46.4 kg/m2 165.1 cm Jessica Umanzor [place] - [facility] 09/19/2024 10:19:27 Social History Question Answer Notes LastModified by Organizat ion Details LastModified Time Tobacco Smoking Status Former Smoker ETELVINA MARTIN, [facility] [address] [facility],[address], [address], [facility] - [facility] 11/12/2024 09:17:45 When Did You Quit [...] Disorder N Anesthesia Complications N Heart Attack (IA) N Other Skin Condition N Diabetes N [...] SNOMED-CT Code Diagnosis ICD10 Code Diagnosis Note [id number] FER ZAVALA MD [facility] [address] [address] 09/19/2024 10:02:24 09/19/2024 11:03:03 Allergic rhinitis caused by pollen 45656563 J30.1 Chronic sinusitis 424947 00 J32.9 [id number] LILLIAM VELAZQUEZ PA-C [facility] [address] [address] 11/04/2024 14:44:00 11/04/2024 15:08:34 Allergic rhinitis caused by pollen 26461533 J30.1 Atypical facial pain 713 23234 G50.1 [id number] ETELVINA LANCASTER [facility] [address] [place] [address] 11/12/2024 08:46:13 11/12/2024 10:45:34 Allergic rhinitis caused by pollen 55040274 J30.1 [id number] FER ZAVALA MD [facility] [address] [address] 12/31/2024 08:26:16 12/31/2024 08:52:00 Obstructive sleep apnea syndrome 86205412 G47.33 Posterior rhinorrhea 758 51356 R09.82 Chronic rhinitis 3849689 6 J31.0 Health Concerns Section Related Observation LastModified by Organization Detai ls LastModified Time None Recorded Concern Status LastModified by Organization Details LastModified Time None Recorded Advance Directives Directive None Recorded Payers Insurance Date Sequence Insurance Name Policy Number Policy Mei Covered Member ID Mei Member ID Guarantor Name 01/07/2025 1 [place] [employer] Lynnette Mcgill [id number] Lynnette Mcgill 01/07/2025 2 [place] [facility] Lynnette Mcgill [id number] Lynnette Mcgill Notes Date Note Type Note [...] FER RIVERA MD [address], [place], [address], [facility] - [facility] 09/19/2024 12:45:42 11/04/2024 text/html 63 year old kalin linares presents to review CT sinus which was performed at [facility] 10/07/24. She reports that her left maxillary pain is improving. She has allergy tested scheduled. SHRAVAN JUDD MD [address] [facility], [place], [address], [facility] 11/06/2024 08:24:49 11/12/2024 text/html Pt presents for allergy testing. Due to elevated bp due to holding her beta ghislaine and other 3 meds and having poor pfts Dr. Hernandez wanted pt to have RAST and to follow up with Dr. Rivera to figure out next steps ETELVINA LANCASTER, [facility] [address], [place], [address], [facility] 11/12/2024 10:45:27 12/31/2024 text/html Patient with [...] FER RIVERA MD [address], [place], [address], [facility] 12/31/2024 08:51:29 OBGyn Episode No OBEpisode recorded.
--- OUTSIDE RECORDS SUMMARY | 2025-03-30 12:42 | XMS_ITS | Encounter Summary ---
Author Organization [facility] Address [address] [place] [address] Care Team Providers Care Termite Inspector Name Role Phone Yovanny Noel MD Primary Care Provider Sharon meredith Reason for Visit * Reason Onset Date Comments Cough 12/30/2018 allergies 12/30/2018 Encounter Details Date Type Department Care Team Description 12/30/2018 Telephone Pulmonology - [place] [address] [facility] [address] [place] [phone] Josh Lee MD Cough; allergies Social History Tobacco Use Types Packs/Day Years Used Date Smoking Tobacco: Former Smokeless Tobacco: Never Alcohol Use Standard Drinks/Week Comments No 0 (1 standard drink = 0.6 oz pur e alcohol) Sex Assigned at Date Recorded Not on file documented as of this encounter Miscellaneous Notes * Telephone Encounter - Brittani Gomez - 01/08/2019 1:51 PM EDT Left message with family member to have patient call regarding an appointment. * Telephone Encounter - Brittani Gomez - 01/03/2019 3:26 PM EDT Noted. * Telephone Encounter - Ivory Gil M.A. - 01/03/2019 3:05 PM EDT I have called patient a few times, either no answer or voice mail. If she calls back she can come in for asick visit with Britton Calvillo, per Dr. Lee. * Telephone Encounter - Josh Lee MD - 01/01/2019 3:10 PM EDT See if she can in and see Armando * Telephone Encounter - Ivory Gil M.A. - 01/01/2019 11:10 AM EDT Please advise. * Telephone Encounter - Hardeep Beckford - 12/31/2018 3:12 PM EDT Patient calling back [phone] * Telephone Encounter - Hardeep Beckford - 12/30/2018 3:07 PM EDT Patient calling back [phone]. * Telephone Encounter - Selina Lee - 12/30/2018 10:16 AM EDT Symptoms patient is presenting: Running nose, cough, Thinking its allergies If pain or injury related was it due to an accident at work or from a motor vehicle accident? NO If yes, gather 3rd democrat insurance information Date of accident/Injury: How long has patient had these symptoms?: 2 week PCP: Dr. Yovanny Noel Payor: [facility] [employer] FFS / Plan: [facility] [employer] / Product Type: MEDICAID RISK documented in this encounter Plan of Treatment Not on file documented as of this encounter Visit Diagnoses Not on filedocumented in this encounter Care Teams Termite Inspector Relationship Specialty Start Date End Date Yovanny Noel MD PCP - General 05/04/08 documented as of this encounter
--- OUTSIDE RECORDS SUMMARY | 2025-03-30 12:42 | XMS_ITS | Clinical Summary ---
Author Organization [facility] Address [address] [place] [address] Phone Care Team Providers Care Motor Vehicle Escort Driver Name Role Phone Yovanny Noel MD Primary Care Provider [phone] Allergies Active Allergy Reactions Criticality Noted Date [...] DAILY. STOP POTASSIUM SUPPLEMENT. 1 Active Tiotropium [place] Monohydrate 1.25 MCG/ACT aerosol solution Inhale 1 [...] Obstructive sleep apnea syndrome 02/07/2018 Overview (03/26/2021): [facility] Home Sleep Apnea Test: Date [...] this topic Insurance Medicare Medicaid [place] Medicaid [place] Medicare Care Teams Motor Vehicle Escort Driver Relationship Specialty Start Date End Date Yovanny Noel MD [address] [place] [address] , [address] [place] [address] PCP - General Medical Oncology 01/18/24
--- OUTSIDE RECORDS SUMMARY | 2025-03-30 12:42 | XMS_ITS | Clinical Summary ---
Author Organization [facility] Address [address] [place] [address] Phone Care Team Providers Care Census Enumerator Name Role Phone Ghazala Noel MD Primary Care Provider [phone] Allergies Active Allergy Reactions Criticality Noted Date Comments Tomato 02/19/2018 Watermelon 02/19/2018 Medications CHOLECALCIFEROL , VITAMIN D3, ORAL Take by mouth. Activ e inhalational spacing device (Aerochamber MV) inhaler 1 Device by Does not apply route 2 times daily. 07/18/20 18 Active WHEAT DEXTRIN ORAL Take 4 g by mouth daily. 09/05/20 21 Active albuterol HFA (PROAIR HFA ; PROVENTIL HFA ; VENTOLIN HFA) 90 mcg/actuation inhaler Inhale 2 Puffs into the lungs every 4 hours as needed for Cough or Wheezing. 01/28/20 20 Active clopidogreL (PLAVIX) 75 mg tablet TAKE 1 TABLET BY MOUTH ONCE DAILY DIRECTED 03/18/20 20 Active fluticasone propionate (FLONASE) 50 mcg/actuation nasal spray 2 Sprays by Nasal route daily. Intranasal: Two sprays in each nostril once daily; once symptoms controlled reduce to 1 spray in each nostril once daily . Maintenance therapy is 01/28/20 20 Active fluticasone furoate-vilante roL (Breo Ellipta) 200-25 mcg/dose inhaler Inhale 1 Puff into the lungs daily. 06/22/20 20 Active furosemide (LASIX) 40 mg tablet Take 40 mg by mouth daily. Active gabapentin (NEURONTIN) 100 mg capsule Take 100 mg by mouth 3 times daily. Active hydrALAZINE (APRESOLINE) 10 mg tablet TAKE 1 TABLET BY MOUTH TWICE DAILY WITH FOOD 10/25/19 Active hydroCHLOROthia zide (HYDRODIURIL) 25 mg tablet Take 25 mg by mouth daily. Active ibuprofen (ADVIL,MOTRIN) 800 mg tablet TAKE 1 TABLET BY MOUTH THREE TIMES DAILY 11/13/19 Active lisinopril (PRINIVIL,ZESTR IL) 40 mg tablet Take 40 mg by mouth daily. 01/04/20 20 Active loratadine (CLARITIN) 10 mg tablet Take 1 Tab by mouth daily. 03/29/20 20 Active metoprolol succinate (TOPROL-XL) 50 mg 24 hr tablet Take 50 mg by mouth daily. Active metoprolol tartrate (LOPRESSOR) 50 mg tablet TAKE 1 TABLET BY MOUTH TWICE DAILY DIRECTED 02/25/20 Active montelukast (SINGULAIR) 10 mg tablet Take 1 Tab by mouth at bedtime. 09/09/20 20 Active omeprazole (PriLOSEC) [address] capsule Take 20 mg by mouth daily. Active simvastatin (ZOCOR) 40 mg tablet Take 40 mg by mouth at bedtime. Active tiotropium (Spiriva Respimat) 1.25 mcg/actuation inhalation spray Inhale 1 Puff into the lungs daily. Maintenance inhaler: Take 1 puff daily. 01/28/20 20 Active buPROPion XL (WELLBUTRIN XL) 150 mg 24 hr tabletIndicatio ns:Class 3 severe obesity due to excess calories with serious comorbidity and body mass index (BMI) of 40.0 to 44.9 in adult ([facility] V24, [facility] V28) Take 1 tablet (150 mg total) by mouth 1 (one) time each day. Do not crush, chew, or split. 90 tablet 1 12/16/19 25 025 Active topiramate (TOPAMAX) 100 mg tabletIndicatio ns:Class 3 severe obesity due to excess calories with serious comorbidity and body mass index (BMI) of 40.0 to 44.9 in adult ([facility] V24, [facility] V28) TAKE 1 TABLET BY MOUTH AT BEDTIME 30 tablet 03/18/20 25 Active topiramate (TOPAMAX) 100 mg tabletIndicatio ns:Class 3 severe obesity due to excess calories with serious comorbidity and body mass index (BMI) of 40.0 to 44.9 in adult ([facility] V24, [facility] V28) Take 1 tablet (100 mg total) by mouth at bedtime. 30 each 2 12/16/19 25 025 Discontinued Active Problems Problem Noted Date Diagnosed Date Chronic rhinitis 12/31/2024 Posterior rhinorrhea 12/31/2024 Allergic rhinitis 11/12/2024 Atypical facial pain 11/04/2024 Chronic sinusitis 09/19/2024 Cerebrovascular accident (CVA) ([facility] V24, [facility] V28) 04/17/2022 Chronic pain 04/17/2022 Pain in joint involving pelvic region and thigh 04/17/2022 Muscle weakness 04/17/2022 COVID-19 04/17/2022 Radial styloid tenosynovitis (de quervain) 04/17 Reactive depression (situational) 04/17/2022 Eating disorder, unspecified 08/09/2021 Overview (08/26/2024): Tiffanie Benitez PhD History of cerebrovascular a ccident (CVA) with residual deficit 08/09/2021 Overview (08/26/2024): Left sided weakness Allergic rhinitis due to pollen 06/16/2021 Overview (03/13/2025): Allergic rhinitis due to pollen; Note: Date Diagnosed: 06/16/2021 11:31 AM (J30.1) Left ventricular hypertrophy 05/21/2019 Pulmonary nodules 05/21/2019 DEMI (obstructive sleep apnea) 02/07/2018 Overview (08/26/2024): [facility] Home Sleep Apnea Test: Date [...] (BMI) of 45.0 to 49.9 in adult ([facility] V24, [facility] V28) 12/04/2017 Encounters Date Type Department Care Team Description 03/05/2025 Telephone Gastroenterology - [address] [place] [address] Monty Phipps MD Consult Appointment from Last 3 Months Surgical History Surgery Date Site/Laterality Comments HYSTERECTOMY PROCEDURE: HISTORICAL HYSTERECTOMY KNEE SURGERY Left PROCEDURE: HISTORICAL KNEE SURGERY Medical History Medical History Date Comments Morbid obesity with BMI of 5 0.0-59.9, adult ([facility] V24, [facility] V28) 12/04/2017 DX:Morbid obesity wit h BMI of 50.0-59.9, adult ([facility]) Hyperlipidemia 12/04/2017 DX:Hyperlipidemi a Nontoxic uninodular goiter 12/04/2017 DX:No ntoxic uninodular goiter Hypertension 12/04/2017 DX:Hypertension Asthma 12/04/2017 DX:Asthma Lumbar radiculopathy 12/04/2017 DX:Lumbar r adiculopathy Eating disorder, unspecified 08/09/2021 DX: Eating disorder, unspecified; COMMENT: Tiffanie Benitez PhD Left ventricular hypertrophy 05/21/2019 DX: Left ventricular hypertrophy DEMI (obstructive sleep apnea) 02/07/2018 DX :DEMI (obstructive sleep apnea); COMMENT: [facility] Home Sleep Apnea Test: Date [...] 75 12/15/2024 3:18 PM EDT Temperature 36.6 C (97.8 F) 12/15/2024 3:18 PM EDT Respiratory Rate - - Oxygen Saturation - - Inhaled Oxygen Concentration - - Weight 121 kg (266 lb) 12/15/2024 3:18 PM EDT Height 165.1 cm (5' 5 ) 12/15/2024 3:18 PM EDT Body Mass Index 44.26 12/15/2024 3:18 PM EDT Plan of Treatment Upcoming Encounters Date Type Department Care Team (Late st Contact Info) Description 04/09/2025 11:20 AM EDT Consult Gastroenterology - [address] [facility] [address] [place] [address] Chichi Gaytan PA 299 [facility] [address] [place] [address] 04/21/2025 10:15 AM EDT Office Visit Bariatric Surgery - [place] [address] [facility] [address] [place] [id number] Julian Hubbard MD [address] [facility] [address] [place] [address] Health Maintenance Due Date Last Done Comments [...] Associated Diagnosis Comments DEPRESSION SCREENING Routine 07/08/2024 [facility] SCREENING DIGITAL Routine 05/08/2024 1:31 PM EDT Encounter for screening mammogram for malignant neoplasm of breast ANNUAL BMP BLOOD TEST Routine 01/30/2023 LIPID PANEL Routine 04/22/2021 from Last 3 Months or Most Recently Relevant to Health Maintenance Results * Depression Screening (07/08/2024) Depression Screening Abstracted us Historical Provider HEALTH MAINTENANCE Final Result * [facility] SCREENING DIGITAL (05/08/2024 1:31 PM EDT) Anatomical Region Laterality Modality Mammography 05/08/2024 10:5 9 AM EDT Narrative 05/08/2024 1:31 PM EDT [facility] Diagnostic Imaging Department [address] [place] [address] Patient: RICH MCGILL Serg NegreteB./Age/Sex: 1960 - 63 - F Unit#: [id number] Location/Status: [facility]/REG CLI Mnemonic/Ordering Site: DIGSC/SPMAM Ordering Physician: GHAZALA NOEL MD [facility] Screening Digital - 05/08/24 - 1125 Report Status:Signed EXAM: [facility] Screening Digital EXAM DATE AND TIME: 05/08/2024 11:26 AM HISTORY: Screening. Right breast biopsy in 2009, pathology benign. COMPARISON: 06/26/22, 06/22/21, 06/18/20 TECHNIQUE: Bilateral digital breast tomosynthesis was performed in the CC and MLO projections. Computer aided detection with Jounce 3D 3.1 was employed. TISSUE DENSITY: a. The breasts are almost entirely fatty. FINDINGS: No suspicious masses, grouped microcalcifications, or areas of architectural distortion are seen. A biopsy marker is again seen in the medial right breast. Numerous skin calcifications are present. The vascularity is unremarkable. IMPRESSION: Stable mammographic appearance of the breasts. No evidence of malignancy is seen. A negative mammogram in the presence of a clinically suspicious palpable abnormality does not preclude the possibility of malignancy or alter the indications for biopsy. BI-RADS: Category 2: Benign RECOMMENDATION(S): 1: Routine screening mammogram BILATERAL in 1 year. Dictating Physician: CRYSTAL CARMEN MD Electronically Signed by: CRYSTAL CARMEN MD Dic Date/Time: 05/08/24 1331 Sign date/Time: 05/08/24 1331 Procedure Note Crystal Carmen MD - 07/16/2024 [facility] Diagnostic Imaging Department [address] [place] [address] Patient: RICH MCGILL Serg NegreteB./Age/Sex: 1960 - 63 - F Unit#: [id number] [facility]onic/Ordering Site: [facility] Ordering Physician: GHAZALA NOEL MD [facility] Screening Digital - 05/08/24 - 1125 Report Status:Signed EXAM: [facility] Screening Digital EXAM DATE AND TIME: 05/08/2024 11:26 AM HISTORY: Screening. Right breast biopsy in 2009, pathology benign. COMPARISON: 06/26/22, 06/22/21, 06/18/20 TECHNIQUE: Bilateral digital breast tomosynthesis was performed in the CCand MLO projections. Computer aided detection with Jounce 3D 3.1was employed. TISSUE DENSITY: a. The [...] Insurance MEDICAID - [place] MEDICARE Care Teams Census Enumerator Relationship Specialty Start Date End Date Ghazala Noel MD [address] [address] PCP - General Oncology 07/25/24
== END 2025-03-30 12:34 | disposition home or self-care (01) ==
LOC: HO.PMC 12:02
PROVIDERS: PCP Internal Medicine Medical Oncology; Referring Provider Internal Medicine Medical Oncology; Visit Provider Internal Medicine
DX: M54.16 Radiculopathy, lumbar region (principal)
CPT/HCPCS: 99203

== ENCOUNTER → 2025-03-30 12:01 | Outpatient (BNVA) | payer MEDICARE, MEDICAID, SELFPAY | PROVIDERS: PCP Internal Medicine Medical Oncology; Referring Provider Internal Medicine Medical Oncology; Visit Provider Internal Medicine | DX: M54.16 Radiculopathy, lumbar region (principal) | CPT/HCPCS: 99202 ==

== ENCOUNTER 2025-05-18 14:59 | Outpatient (AMB) | payer MEDICARE, MEDICAID, SELFPAY ==
--- NOTE | 2025-05-18 15:07 | MHC.OFFVIS ---
Vital Signs 05/18/25 15:11 Height 5 ft 5 in Weight 267 lb 10.259 oz BMI 44.5 BP 130/60 Blood Pressure Location Lt radial Position Sitting Pulse 68 Pulse Source Pulse Oximeter Intake Visit Reasons: 4 mth fu after echo Intake Note: 4 mh f/up echo- dizziness Sprinkler Tender Required: No Accompanied by: Self / Same As Patient Allergies No Known Allergies Allergy (Verified 03/30/25 12:05) Medication List - Last Reconciled 05/18/25 by Alcon Villalobos MD albuterol sulfate 2.5 mg (3 mL) inhalation Q4H PRN 30 days albuterol sulfate 90 mcg/actuation 2 inhalations inhalation Q6H PRN 30 days amlodipine 10 mg PO DAILY aspirin (Adult Aspirin Regimen) 81 mg PO DAILY bupropion HCl XL 300 mg PO DAILY cholecalciferol (vitamin D3) 50 mcg PO DAILY clopidogrel 75 mg PO DAILY CPAP (CPAP Machine/Device) As directed escitalopram oxalate 20 mg PO DAILY esomeprazole magnesium 40 mg PO DAILY fluticasone furoate-vilanterol 200-25 mcg/dose (Breo Ellipta) 1 inh inhalation DAILY 30 days fluticasone propionate 50 mcg/actuation 1 spray intranasal DAILY [id number]-[id number] 200-62.5-25 mcg (Trelegy Ellipta) 1 inh inhalation DAILY 30 days hydralazine 50 mg PO QID hydrochlorothiazide 25 mg PO DAILY hydroxyzine HCl 50 mg PO TID lisinopril 40 mg PO DAILY loratadine 10 mg PO DAILY 30 days meloxicam 15 mg PO DAILY metoprolol tartrate 50 mg PO BID montelukast 10 mg PO DAILY 30 days mupirocin 2% 1 appl topical BID 7 days nebulizers As directed oxymetazoline 0.05% (Afrin (oxymetazoline)) 2 sprays intranasal Q12H PRN 5 days potassium chloride ER 10 mEq PO DAILY simvastatin 40 mg PO BEDTIME spironolactone 25 mg PO DAILY 90 days trazodone 100 mg PO BID HPI Comments Details: 64-year-old female here for follow-up. She was seen for hypertension previously and her blood pressure has improved on the current medication regimen. She also had exertional chest discomfort for which she underwent cardiac catheterization which did not show any significant coronary artery disease. She has morbid obesity and underwent bariatric surgery. She has lost approximately 90+ lb at this point. She is here for follow-up. She is denying any chest discomfort shortness of breath. Her main complaint is left shoulder pain. 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 She is saying she underwent physiotherapy but there has not been any significant improvement in the shoulder. Blood pressure control is good. Taking medications regularly. 04/23/23: Today she returns for follow-up. She is status post bariatric surgery and continues to lose weight. She has no chest discomfort shortness of breath. She is saying her asthma is under control. She has been experiencing some episodes of dizziness which she describes as lightheadedness. These episodes happen when she is standing or sitting for long time. She feels hot and flushed and starts feeling lightheaded. She is saying she drinks lot of water and tries to hydrate herself. She has never had vasovagal syncope or fainting episodes before. 10/15/2023: She returns for follow-up. She is status post bariatric surgery and was losing weight but unfortunately due to stress he started eating more junk food and has gained some weight now. On last visit blood pressure was mildly elevated but she was complaining of some dizziness and we decided not to increase her medications. On follow-up her blood pressure is higher. She is saying that she has gained some weight also. She has seeing a therapist to see how to cope with stress because she overeats whenever she is under stress. Taking medications regularly. She is on Plavix for previous TIA. Occasionally she feels left side is facial tingling. 12/12/23: She returns for follow-up. She continues to have significantly elevated blood pressure despite being on multiple medication. She was started hydrochlorothiazide last time. She is saying that she has changed her diet and is again beginning to lose some weight. She has lost 3 lb compared to 10/15/2023. Also complaining of some shortness of breath. She is saying shortness of breath can even happen sitting down. Previously had TIA and has been on Plavix. 04/21/2024: She is here for follow-up. She is taking amlodipine 10 mg, hydralazine 50 mg 4 times a day, hydrochlorothiazide 25 mg daily, lisinopril 40 mg daily, metoprolol tartrate 50 mg twice a day and spironolactone 25 mg daily. Her blood pressure in the office today is 130/70. She has been taking medications regularly. Denying any chest discomfort shortness of breath. Previously had TIA and has been on Plavix 75 mg daily. No further neurological complaints from her. She is watching her diet and has lost weight and has lost 6 lb since 02/18/2024. 08/25/2024: She is here for follow-up. Blood pressure is well controlled on multiple medicines right now. She has been exercising and losing weight again. She has been on aspirin and Plavix with previous history of TIA. 12/24/2024: She returns for follow-up. She is complaining of some numbness on the left side of the body which has been present for 2-3 months persistently. She is able to walk and function. She is saying that she gets out of breath with activities but this is significantly better after she had weight loss. Manual blood pressure is 120/80. Her EKG has abnormality with inferior T-wave inversions and slight ST depressions and lateral ST depressions. She is denying any chest discomfort or worsening shortness of breath. She is wearing her CPAP when she is sleeping. 05/18/2025: She is here for follow-up. Denying any chest discomfort. She gets some dyspnea with activities which is chronic. Blood pressure is well controlled. She has noticed some lightheadedness when she changes her posture. This has happened in the last couple of weeks a few times. Last episode was on Sunday at 22:00 at night. She is saying that she has been out in the sun and with the recent heat wave it is possible that this is related to dehydration. She is saying that she has been drinking water. 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 CVA (cerebral vascular accident) DEMI on CPAP Dyspnea Chest pressure Asthma Surgical History History of gastric bypass History of left knee surgery History of hysterectomy Family History Mother Breast cancer HTN (hypertension) Father Kidney disease HTN (hypertension) Maternal Uncle Diabetes Son Diabetes Social History Alcohol intake: never Patient Tobacco Use Status: Never used Tobacco Review of Systems Const Denies chills, Denies fatigue, Denies fever(s), Denies frequent falls, Denies weakness, Denies weight gain and Denies weight loss ENT Reports dizziness Card Denies chest pain, Denies leg edema, Reports lightheadedness, Denies palpitations, Denies dyspnea and Denies dyspnea on exertion Resp Denies cough, Denies dyspnea and Denies dyspnea on exertion GI Denies hematochezia Musc Denies abnormal gait, Denies muscle weakness, Denies numbness, Denies radiating pain into limb and Denies tingling Neuro Denies abnormal gait, Reports dizziness, Denies frequent falls, Denies numbness, Denies tingling and Denies weakness Endo Denies fatigue and Denies palpitations Physical Exam Vital Signs: Last Vital Signs Pulse 68 05/18/25 15:11 BP 130/60 05/18/25 15:11 BMI result Body Mass Index 44.5 GENERAL APPEARANCE: in no acute distress, obese. NECK/THYROID: no carotid bruit, no jugular venous distention. SKIN: no suspicious lesions, warm and dry. HEART: no murmurs, regular rate and rhythm, S1, S2 normal. LUNGS: clear to auscultation bilaterally. ABDOMEN: normal, bowel sounds present, soft, nontender, nondistended. EXTREMITIES: no clubbing, cyanosis. PERIPHERAL PULSES: equal. NEUROLOGIC: alert and oriented. Assessment & Plan Assessment & Plan (1) Resistant hypertension: Code(s): I1A.0 - Resistant hypertension Category: Medical (2) Abnormal EKG: Code(s): R94.31 - Abnormal electrocardiogram [ECG] [EKG] Category: Medical Plan Pleasant 64 year female who is here for follow-up. She has history of resistant hypertension. She is on spironolactone 25 mg, metoprolol tartrate 50 mg twice a day, lisinopril 40 mg daily, hydrochlorothiazide 25 mg daily, hydralazine 50 mg 4 times a day and amlodipine 10 mg daily. Blood pressure control is good. She previously had TIA like symptoms and she has been on aspirin and Plavix. Occasionally feeling some lightheadedness but I think that is related with the heat wave. I have advised her to avoid the heat as much as possible and keep herself well hydrated. She will monitor her symptoms over the next week and we will report to us if she has recurrent symptoms. In that case I would favor decreasing her hydralazine to 25 mg 3 times a day. She is intermediate risk for perioperative complications. She can hold Plavix 5-7 days before the surgery. Thank you for allowing me to participate in the care of your patient. Please feel free to contact me if you have any questions. Coding Level of Care Code Est Pt Level 4 (46692) Diagnoses Resistant hypertension I1A.0 Abnormal EKG R94.31
[2025-05-18 15:11] VITALS: BP 130/60; PULSE 68; BMI 44.5
--- OUTSIDE RECORDS SUMMARY | 2025-05-18 15:40 | XMS_ITS | Clinical Summary ---
Author Organization [facility] Address [address] [place] [address] Phone Care Team Providers Care Mortar Mixer Name Role Phone Ghazala Noel MD Primary Care Provider [phone] Allergies Active Allergy Reactions Criticality Noted Date [...] TABLET BY MOUTH THREE TIMES DAILY 11/13/19 20 Active lisinopril (PRINIVIL,ZESTR IL) 40 mg tablet [...] (BMI) of 40.0 to 44.9 in adult ([facility] V24, [facility] V28) Take 1 tablet (150 mg total) by mouth 1 (one) time each day. Do not crush, chew, or split. 90 tablet 1 12/16/19 25 025 Active topiramate (TOPAMAX) 100 mg tabletIndicatio ns:Class 3 severe obesity due to excess calories with serious comorbidity and body mass index (BMI) of 40.0 to 44.9 in adult (CMS/HCC V24, [facility] V28) TAKE 1 TABLET BY MOUTH AT BEDTIME 30 tablet 04/27/20 25 Active topiramate (TOPAMAX) 100 mg tabletIndicatio ns:Class 3 severe obesity due to excess calories with serious comorbidity and body mass index (BMI) of 40.0 to 44.9 in adult ([facility] V24, [facility] V28) TAKE 1 TABLET BY MOUTH AT BEDTIME 30 tablet 03/18/20 25 025 Discontinued Active Problems Problem Noted Date Diagnosed Date Chronic rhinitis 12/31/2024 Posterior rhinorrhea 12/31/2024 Allergic rhinitis 11/12/2024 Atypical facial pain 11/04/2024 Chronic sinusitis 09/19/2024 Cerebrovascular accident (CVA) ([facility] V24, [facility] V28) 04/17/2022 Chronic pain 04/17/2022 Pain in [...] DEMI (obstructive sleep apnea) 02/07/2018 Overview (08/26/2024): [facility] Home Sleep Apnea Test: Date 04/30/2019; [...] (BMI) of 45.0 to 49.9 in adult ([facility] V24, [facility] V28) 12/04/2017 Encounters Date Type Department Care Team Description 03/05/2025 Telephone Gastroenterology - [address] [place] [address] Monty Phipps MD Consult Appointment from Last 3 Months Surgical History Surgery Date Site/Laterality Comments HYSTERECTOMY PROCEDURE: HISTORICAL HYSTERECTOMY KNEE SURGERY Left PROCEDURE: HISTORICAL KNEE SURGERY Medical History Medical History Date Comments Morbid obesity with BMI of 5 0.0-59.9, adult ([facility] V24, [facility] V28) 12/04/2017 DX:Morbid obesity wit h BMI of 50.0-59.9, adult ([facility]) Hyperlipidemia 12/04/2017 DX:Hyperlipidemi a Nontoxic uninodular goiter 12/04/2017 DX:No ntoxic uninodular goiter Hypertension 12/04/2017 DX:Hypertension Asthma 12/04/2017 DX:Asthma Lumbar radiculopathy 12/04/2017 DX:Lumbar r adiculopathy Eating disorder, unspecified 08/09/2021 DX: Eating disorder, unspecified; COMMENT: Tiffanie Benitez PhD Left ventricular hypertrophy 05/21/2019 DX: Left ventricular hypertrophy DEMI (obstructive sleep apnea) 02/07/2018 DX :DEMI (obstructive sleep apnea); COMMENT: [facility] Home Sleep Apnea Test: Date 04/30/2019; [...] Care Team (Late st Contact Info) Description 06/05/2025 2:20 PM EDT Consult Gastroenterology - [address] [facility] [address] [facility] [address] [place] [id number] Chichi Gaytan PA 299 [facility] [address] [place] [address] 09/08/2025 8:15 AM EST Office Visit Bariatric Surgery - [place] [address] [facility] [address] [place] [phone] Julian Hubbard MD [address] [facility] [address] [place] [address] Health Maintenance Due Date Last Done Comments DTaP,Tdap,and Td Vaccines (1 - Tdap) 1980 Pneumococcal Vaccine: 50+ Years (1 of 2 - PCV) 1980 Cervical [...] 01/31/2024 01/30/2023 COVID-19 Vaccine ( season) 2024 Depression Screening 10/01/2024 07/08/2024 Influenza Vaccine (#1) 2025 Cholesterol Screening (Lipid Panel) 04/22/2026 04/22/2021 Breast [...] Procedure Name Priority Date/Time Associated Diagnosis Comments HM DEPRESSION SCREENING Routine 07/08/2024 [facility] SCREENING DIGITAL Routine 05/08/2024 1:31 PM EDT Encounter for screening mammogram for malignant neoplasm of breast ANNUAL BMP BLOOD TEST Routine 01/30/2023 LIPID PANEL Routine 04/22/2021 from Last 3 Months or Most Recently Relevant to Health Maintenance Results * Depression Screening (07/08/2024) Depression Screening Abstracted us Historical Provider MD HEALTH MAINTENANCE Final Result * [facility] SCREENING DIGITAL (05/08/2024 1:31 PM EDT) Anatomical Region Laterality Modality Mammography 05/08/2024 10:5 9 AM EDT Narrative 05/08/2024 1:[address] [facility] Diagnostic Imaging Department [address] [place], [place] [id number] Patient: RICH MCGILL Serg /Age/Sex: 1960 - 63 - F Unit#: [id number] Location/Status: [facility] CLI Mnemonic/Ordering Site: [facility] Ordering Physician: GHAZALA NOEL MD [facility] Screening Digital - 05/08/24 - 1125 Report Status:Signed EXAM: [facility] Screening Digital EXAM DATE AND TIME: 05/08/2024 11:26 AM HISTORY: Screening. Right breast biopsy in 2009, pathology benign. COMPARISON: 06/26/22, 06/22/21, 06/18/20 TECHNIQUE: Bilateral digital breast tomosynthesis was performed in the CC and MLO projections. Computer aided detection with Modality 3D 3.1 was employed. TISSUE DENSITY: a. [...] Signed by: CRYSTAL CARMEN MD Dic Date/Time: 05/08/241330 Sign date/Time: 05/08/241330 Procedure Note Crystal Carmen MD - 07/16/2024 [facility] Diagnostic Imaging Department [address] [place] [address] Patient: RICH MCGILL Serg /Age/Sex: 1960 - 63 - F Unit#: [id number] Location/Status: [facility] CLI Mnemonic/Ordering Site: [facility] Ordering Physician: GHAZALA NOEL MD [facility] Screening Digital - 05/08/24 - 1125 Report Status:Signed EXAM: [facility] Screening Digital EXAM DATE AND TIME: 05/08/2024 11:26 AM HISTORY: Screening. Right breast biopsy in 2010, pathology benign. COMPARISON: 06/26/22, 06/22/21, 06/18/20 TECHNIQUE: Bilateral digital breast tomosynthesis was performed in the CCand MLO projections. Computer aided detection with [employer] 3D 3.1was employed. TISSUE DENSITY: a. The [...] Date/Time: 05/08/24 1331 Sign date/Time: 05/08/24 1331 Result [facility] Ghazala Noel MD IMG BI PROCEDURES Final Result * Annual BMP Blood Test (01/30/2023) Pathologist [facility] Annual BMP Blood Test Abstracted Historical Provider HEALTH MAINTENANCE Final Result * (ABNORMAL) Lipid panel (04/22/2021) LDL/HDL Ratio 6(A) 0 - 4 Triglycerides 159(A) 0 - 150 mg/dL Cholesterol 273(A) 0 - 200 mg/dL HDL 48 >=40 mg/dL LDL Cholesterol 194(A) 0 - 100 mg/dL Blood Venous blood specimen / Unknown Result [facility] Historical Provider LAB BLOOD ORDERABLES Frieda l Result from Last 3 Months or Most Recently Relevant to Health Maintenance Insurance MEDICAID - [place] MEDICARE Care Teams Mortar Mixer Relationship Specialty Start Date End Date Ghazala Noel MD [address] [address] PCP - General Oncology 07/25/24
--- OUTSIDE RECORDS SUMMARY | 2025-05-18 15:40 | XMS_ITS | Patient Health Record ---
Author Organization Yovanny Noel III, MD Address [address] [place] [address] Care Team Providers Care Differential Repairer Name Role Phone Yovanny Noel Primary Care [...] 1.3 BLD Negative Negative - Menstrating No Urinalysis and Microscopic Reviewed date:05/29/2024 12:31:16 PM Interpretation: Performing Lab:[address] [address] Notes/Report: Color Urine Yellow Appearance Urine Turbid PH 5.5 5.0-9.0 Glucose Urine UA Negative Negative mg/dL Urine Blood Negative Negative Specific [place] - Urine 1.025 1.005-1.025 Urine Protein Negative Neg-Trace mg/dL Urine Ketones Negative Negative mg/dL Nitrite Urine Negative Negative Leukocyte Esterase Urine Moderate (2+) Negative RBC Urine 0-2 0-2 /HPF WBC Urine 21-50 0-5 /HPF Squamous Epithelial Cell Urine >20 0-2 /HPF Bacteria Urine 4+ None Seen Hyaline Casts Urine 3-5 0-2 /LPF Electrolytes Reviewed date:05/29/2024 12:31:16 PM Interpretation: Performing Lab:[address] [address] Notes/Report: Sodium 142 135-145 mmol/L Potassium 4.3 3.3-5.1 mmol/L Chloride 113 96-108 mmol/L Carbon Dioxide 24 22-29 mmol/L Anion Gap 9 12-20 Blood Urea Nitrogen Reviewed date:05/29/2024 12:31:16 PM Interpretation: Performing Lab:[address] [address] Notes/Report: Blood Urea Nitrogen 26 9-16 mg/dL Creatinine Reviewed date:05/29/2024 12:31:16 PM Interpretation: Performing Lab:[address] [address] Notes/Report: Creatinine 1.10 0.5-1.4 mg/dL Estimated Glomerular Filt Rate 50 NOTE: For -Samoan individuals, multiply the result by 1.210. Chronic Kidney Disease: Estimated GFR < 60 mL/min/1.73m2 Severe Kidney Disease: Estimated GFR < 15 mL/min/1.73m2 Calcium Reviewed date:05/29/2024 12:31:16 PM Interpretation: Performing Lab:[address] [address] Notes/Report: Calcium 9.8 8.4-10.2 mg/dL IRON PROFILE Reviewed date:05/29/2024 12:31:16 PM Interpretation: Performing Lab:[address], [place] [address] Notes/Report: Iron 95 30-160 mcg/dL Total Iron Binding Capacity 241 228-428 mcg/dL Percent Iron Saturation 39 15-50 % Unsaturated Iron Binding 146 Ferritin Reviewed date:05/29/2024 12:31:16 PM Interpretation: Performing Lab:[facility], [address] [place] [phone] Notes/Report: Ferritin 182 10-250 ng/mL Lactate Dehydrogenase Reviewed date:05/29/2024 12:31:16 PM Interpretation: Performing Lab:[facility], [address] [place] [phone] Notes/Report: Lactate Dehydrogenase 183 122-220 U/L Vitamin B12 and Folate Reviewed date:05/29/2024 12:31:16 PM Interpretation: Performing Lab:[facility], [address] [place] [phone] Notes/Report: Vitamin B12 530 200-900 pg/mL NORMAL 200-900 PG/ML INDETERMINATE 160-199 PG/ML DEFICIENT < 160 PG/ML Folate 6.1 > or = 4.0 ng/mL Reference Values: > or = 4.0 ng/mL < 4.0 ng/mL suggests folate deficiency Methotrexate, aminopterin and folinic acid (leucovorin) are chemotherapeutic agents whose molecular structures are similar to folate; therefore, the Performance Manager folate assay cannot be used for patients using these drugs. Protein Creatinine Ratio, Ur Reviewed date:05/29/2024 12:31:16 PM Interpretation: Performing Lab:[facility], [address] [place] [phone] Notes/Report: Creatinine Urine 165.24 Total Protein Urine Random 10 <12 mg/dL Protein/Creatinine Ratio, Ur 0.06 <0.2 The spot urine protein:creatinine ratio may increase to 0.3 during normal . Immunofixation Pnl, Serum Reviewed date:06/26/2024 06:56:19 AM Interpretation: Performing Lab:[facility], [address] [place] [phone] Notes/Report: IgG 3258 979-4190 mg/dL IgA 225 70-320 mg/dL IgM 83 50-300 mg/dL THIS TEST WAS PERFORMED AT: [facility] [address] [place] [phone] ADELE SOLOMON MD Immunofixation Interpretation SEE NOTE Normal pattern. No monoclonal proteins detected. Complement C3 Reviewed date:05/29/2024 12:31:16 PM Interpretation: Performing Lab:[facility], [address] [place] [phone] Notes/Report: Complement C3 126 83-193 mg/dL THIS TEST WAS PERFORMED AT: [facility] [address] [place] [phone] ADELE SOLOMON MD Complement C4 Reviewed date:05/29/2024 12:31:16 PM Interpretation: Performing Lab:[facility], [address] [place] [phone] Notes/Report: Complement C4 31 15-57 mg/dL THIS TEST WAS PERFORMED AT: [facility] [address] [place] [phone] ADELE SOLOMON MD US renal doppler Reviewed date:06/26/2024 06:56:19 AM Interpretation: Performing Lab: Notes/Report: [address] [place] [address] Ultrasound Report Signed Patient: Lynnette Mcgill MR#: [id number] : 1960 Acct:[id number] Age/Sex: 63 / F ADM Date: 06/25/24 Loc: .US Attending Dr: Da Raya MD Ordering Physician: Da Raya MD Date of Service: 06/25/24 Procedure(s): US renal doppler Accession Number(s): [id number] cc: Yovanny Noel MD; Da Raya MD [...] 06/25/24 1414 DD/ 1009 TD/TT: 06/25/24 1030 Micro Lab Analyst: [place] [address] Ultrasound Report Signed Patient: Lynnette Mcgill MR#: [id number] : 1960 Acct:[id number] Age/Sex: 63 / F ADM Date: 06/25/24 Loc: . Attending Dr: Da Raya MD Ordering Physician: Da Raya MD Date of Service: 06/25/24 Procedure(s): US soo al doppler Accession Number(s): [id number] cc: Yovanny Noel MD; Da Raya MD [...] 06/25/24 1414 DD/ 1009 TD/TT: 06/25/24 1030 Micro Lab Analyst: CARMEN US renal BI Reviewed date:06/26/2024 06:56:19 AM Interpretation: Performing Lab: Notes/Report: [place] [address] Ultrasound Report Signed Patient: Lynnette Mcgill MR#: [id number] : 1960 Acct:[id number] Age/Sex: 63 / F ADM Date: 06/25/24 Loc: HO.US Attending Dr: Da Raya MD Ordering Physician: Da Raya MD Date of Service: 06/25/24 Procedure(s): US renal BI Accession Number(s): [id number] cc: Yovanny Noel MD; Da Raya MD [...] 06/25/24 1414 DD/ 1005 TD/TT: 06/25/24 1030 Micro Lab Analyst: [place] [address] Ultrasound Report Signed Patient: Lynnette Mcgill MR#: [id number] : 1960 Acct:[id number] Age/Sex: 63 / F ADM Date: 06/25/24 Loc: .US Attending Dr: Da Raya MD Ordering Physician: Da Raya MD Date of Service: 06/25/24 Procedure(s): US soo Coello Accession Number(s): [id number] cc: Yovanny Noel MD; Da Raya MD [...] 06/25/24 1414 DD/ 1005 TD/TT: 06/25/24 1030 Micro Lab Analyst: CARMEN Urinalysis and Microscopic Reviewed date:07/14/2024 07:05:27 AM Interpretation: Performing Lab:[facility], [address] [place] [phone] Notes/Report: Color Urine Yellow Appearance Urine Clear PH 6.5 5.0-9.0 Glucose Urine UA Negative Negative mg/dL Urine Blood Negative Negative Specific [place] - Urine 1.020 1.005-1.025 Urine Protein Negative Neg-Trace mg/dL Urine Ketones Negative Negative mg/dL Nitrite Urine Negative Negative Leukocyte Esterase Urine Large (3+) Negative RBC Urine 0-2 0-2 /HPF WBC Urine 6-10 0-5 /HPF Squamous Epithelial Cell Urine 6-10 0-2 /HPF Bacteria Urine Trace None Seen Hyaline Casts Urine 3-5 0-2 /LPF Electrolytes Reviewed date:07/14/2024 07:05:27 AM Interpretation: Performing Lab:[facility], [address] [place] [phone] Notes/Report: Sodium 142 135-145 mmol/L Potassium 4.1 3.3-5.1 mmol/L Chloride 113 96-108 mmol/L Carbon Dioxide 22 22-29 mmol/L Anion Gap 11 12-20 Blood Urea Nitrogen Reviewed date:07/14/2024 07:05:27 AM Interpretation: Performing Lab:[facility], [address] [place] [phone] Notes/Report: Blood Urea Nitrogen 29 9-16 mg/dL Creatinine Reviewed date:07/14/2024 07:05:27 AM Interpretation: Performing Lab:[facility], [address] [place] [phone] Notes/Report: Creatinine 1.19 0.5-1.4 mg/dL Estimated Glomerular Filt Rate 46 NOTE: For -Samoan individuals, multiply the result by 1.210. Chronic Kidney Disease: Estimated GFR < 60 mL/min/1.73m2 Severe Kidney Disease: Estimated GFR < 15 mL/min/1.73m2 Calcium Reviewed date:07/14/2024 07:05:27 AM Interpretation: Performing Lab:[facility], [address] [place] [phone] Notes/Report: Calcium 10.1 8.4-10.2 mg/dL TSH reflex Free T4 Reviewed date:07/14/2024 07:05:27 AM Interpretation: Performing Lab:[facility], [address] [place] [phone] Notes/Report: TSH reflex Free T4 0.70 0.32-4.0 uIU/mL Aldosterone Reviewed date:07/27/2024 06:33:19 AM Interpretation: Performing Lab:[facility], [address] [place] [phone] Notes/Report: Aldosterone TNP Renin Reviewed date:07/20/2024 08:40:23 AM Interpretation: Performing Lab:[facility], [address] [place] [phone] Notes/Report: Renin 0.28 0.25-5.82 ng/mL/h This test was developed and its analytical performance characteristics have been determined by [employer] [place], [place]. It has not been cleared or approved by the U.S. Food and Drug Administration. This assay has been validated pursuant to the CLIA regulations and is used for clinical purposes. THIS TEST WAS PERFORMED AT: [facility]/[address] [address] DENNY DOMINGUEZ MD,PHD Aldost/Renin Reviewed date:07/27/2024 06:33:19 AM Interpretation: Performing Lab:[facility], [address] [place] [phone] Notes/Report: Aldosterone 7 see note ng/dL Unable to flag abnormal result(s), please refer to reference range(s) below: Adult Reference Ranges for Aldosterone, LC/MS/MS: Upright 8:00 - 10:00 am < or = 28 ng/dL Upright 4:00 - 6:00 pm < or = 21 ng/dL Supine 8:00 - 10:00 am 3 - 16 ng/dL THIS TEST WAS PERFORMED AT: [facility] [address] DENNY DOMINGUEZ MD,PHD Plasma Renin Activity 0.33 0.25-5.82 ng/mL/h Aldosterone/Renin Ratio 21.2 0.9-28.9 Ratio This test was developed and its analytical performance characteristics have been determined by [facility] [place], [place]. It has not been cleared or approved by the U.S. Food and Drug Administration. This assay has been validated pursuant to the CLIA regulations and is used for clinical purposes. THIS TEST WAS PERFORMED AT: [facility] [address] DENNY DOMINGUEZ MD,PHD Metanephrines, Plasma Reviewed date:07/16/2024 03:36:49 PM Interpretation: Performing Lab:[facility], [address] [place] [phone] Notes/Report: Metanephrine, Free <25 <=57 pg/mL This test was developed and its analytical performance characteristics have been determined by [facility] [place], [place]. It has not been cleared or approved by the U.S. Food and Drug Administration. This assay has been validated pursuant to the CLIA regulations and is used for clinical purposes. Normetanephrines, Free 158 <=148 pg/mL This test was developed and its analytical performance characteristics have been determined by [facility] [place], [place]. It has not been cleared or approved by the U.S. Food and Drug Administration. This assay has been validated pursuant to the CLIA regulations and is used for clinical purposes. Total Metanephrine, Free 158 <=205 pg/mL For additional information, please refer to http://education.iCracked.Primocare/faq/MetF ractFree (This link is being provided for [...] analytical performance characteristics have been determined by [facility] [place], [place]. It has not been cleared or approved by the U.S. Food and Drug Administration. This assay has been validated pursuant to the CLIA regulations and is used for clinical purposes. THIS TEST WAS PERFORMED AT: [facility] [address] [address] DENNY DOMINGUEZ MD,PHD Protein Creatinine Ratio, Ur Reviewed date:07/14/2024 07:05:27 AM Interpretation: Performing Lab:[facility], [address] [place] [phone] Notes/Report: Creatinine Urine 170.09 Total Protein Urine Random 9 <12 mg/dL Protein/Creatinine Ratio, Ur 0.05 <0.2 The spot urine protein:creatinine ratio may increase to 0.3 during normal . Cortisol Random Reviewed date:07/14/2024 07:05:27 AM Interpretation: Performing Lab:[facility], [address] [place] [phone] Notes/Report: Cortisol Random 9.6 Reference Range*: Before [...] ff Reviewed date:07/27/2024 06:33:19 AM Interpretation: Performing Lab:[facility], [address] [place] [phone] Notes/Report: White Blood Count 5.6 4.8-10.8 X10*3/uL [...] Panel Reviewed date:07/27/2024 06:33:19 AM Interpretation: Performing Lab:[facility], [address] [place] [phone] Notes/Report: Sodium 143 135-145 mmol/L Potassium 4.1 3.3-5.1 mmol/L Chloride 112 96-108 mmol/L Carbon Dioxide 25 22-29 mmol/L Anion Gap 10 12-20 Blood Urea Nitrogen 29 9-16 mg/dL Creatinine 1.42 0.5-1.4 mg/dL Estimated Glomerular Filt Rate 37 NOTE: For -Samoan individuals, multiply the result by 1.210. Chronic [...] Diff Reviewed date:12/27/2024 08:01:52 AM Interpretation: Performing Lab:[address] [address] Notes/Report: White Blood Count 5.0 4.8-10.8 X10*3/uL [...] Panel Reviewed date:12/27/2024 08:01:52 AM Interpretation: Performing Lab:[address] [address] Notes/Report: Sodium 141 135-145 mmol/L Potassium 3.8 [...] Sensitivity Reviewed date:12/27/2024 08:01:52 AM Interpretation: Performing Lab:[facility], [address] [place] [phone] Notes/Report: Troponin-I High Sensitivity < 2.7 <3.5-17.0 ng/L The Weiss high sensitivity Troponin-I results should be used in conjunction with other diagnostic information such as ECG, clinical observations and information, and patient symptoms to aid in the diagnosis of [place]. B Type Natriuretic Peptide Reviewed date:12/27/2024 08:01:52 AM Interpretation: Performing Lab:[facility], [address] [place] [phone] Notes/Report: B Type Natriuretic Peptide 64 <100 pg/mL US arterial duplex LE LT Reviewed date:04/03/2025 07:16:33 PM Interpretation: Performing Lab: Notes/Report: [address] [address] Ultrasound Report Signed Patient: Lynnette Mcgill MR#: [id number] : 1960 Acct:[id number] Age/Sex: 64 / F ADM Date: 03/11/25 Loc: HO.US Attending Dr: Yovanny Noel MD Ordering Physician: Yovanny Noel MD Date of Service: 03/11/25 Procedure(s): US arterial duplex LE LT Accession Number(s): [id number] cc: Yovanny Noel MD; Franklin Eason MD EXAMINATION: Noninvasive assessment of the left lower extremity. CLINICAL INFORMATION: Pain, left lower extremity. TECHNIQUE: Duplex Doppler techniques with waveform analysis and measurement of velocities in the left common femoral, profunda femoris, superficial femoral, popliteal and tibial arteries were performed. The study was performed only at rest. COMPARISON: None FINDINGS: DIRECT DUPLEX DOPPLER FINDINGS: LEFT LEG: Common femoral artery: 145 cm/s, phasicity: Triphasic. Profunda femoris artery: 70 cm/s, phasicity: Triphasic. Superficial femoral artery (proximal): 119 cm/s, phasicity: Triphasic. Superficial femoral artery (mid): 78 cm/s, phasicity: Triphasic. Superficial femoral artery (distal): 66 cm/s, phasicity: Triphasic. Popliteal artery: 70 cm/s, phasicity: Triphasic. Posterior tibial artery: 99 cm/s, phasicity: Triphasic. Peroneal artery: No color Doppler flow registered. . Anterior tibial artery: 84 cm/s, phasicity: Triphasic. Dorsalis pedis artery: 80 cm/s, phasicity: Triphasic. US/US arterial duplex LE LT IMPRESSION: Normal patency and waveforms of the interrogated vessels, left lower extremity. Electronically signed by: Brandon Marx MD 03/12/2025 09:05 AM EDT Dictated By: Brandon Yun MD Signed By: <Electronically signed by Brandon Wilcox MD in [place]> 03/12/25 09 DD/ 0932 TD/TT: 03/11/25 0939 Micro Lab Analyst: [place] [address] Ultrasound Report Signed Patient: Lynnette Mcgill MR#: [id number] : 1960 Acct:[id number] Age/Sex: 64 / F ADM Date: 03/11/25 Loc: .US Attending Dr: Yovanny Noel MD Ordering Physician: Yovanny Noel MD Date of Service: 03/11/25 Procedure(s): US arterial duplex LE LT Accession Number(s): [id number] cc: Yovanny Noel MD; Franklin Eason MD EXAMINATION: Noninvasive assessme nt of the left lower extremity. CLINICAL INFORMATION: Pain, left lower extremity. TECHNIQUE: Duplex Doppler techniques with waveform analysis and measurement of velocities in the le ft common femoral, profunda femoris, superficial femoral, popliteal a nd tibial arteries were performed. The study was performed only at rest. COMPARISON: None FINDINGS: DIRECT DUPLEX DOPPLE R FINDINGS: LEFT LEG: Common femoral arter y: 145 cm/s, phasicity: Triphasic. Profunda femoris artery: 70 cm/s, phasicity: Triphasic. Superficial femoral artery (proximal): 119 cm/s, phasicity: Triphasic. Superficial femoral artery (mid): 78 cm/s, phasicity: Triphasic. Superficial femoral artery (distal): 66 cm/s, phasicity: Triphasic. Popliteal artery: 70 cm/s, phasicity: Triphasic. Posterior tibial artery: 99 cm/s, phasicity: Triphasic. Peroneal artery: No color Doppler flow registered. . Anterior tibial artery: 84 cm/s, phasicity: Triphasic. Dorsalis pedis arter y: 80 cm/s, phasicity: Triphasic. US/US arterial duplex LE LT IMPRESSION: Normal patency and waveforms of the interrogated vessels, left lower extremity. Electronically earline d by: Brandon Marx MD 03/12/2025 09:05 AM EDT RP Dictated By: Brandon Patricio MD Signed By: <Electronically signed by Brandon Wilcox MD in [place]> 03/12/259[address] DD/ 0932 TD/TT: 03/11/25 0939 Micro Lab Analyst: Reason For Referral Reason Consult and Treat Post Nasal Drip Diagnosis 1 Rhinitis (J31.0) Referral Organization Yovanny Noel III, MD Referring Provider First Name Yovanny Referring Provider Last Name Sadie Referring Provider Speciality Internal M edicine Referred Provider [facility] Referred Provider Specialty Otolaryngolo gy General Notes Marixa Smith 2023 01:13:34 PM EDT > Referral Faxed with progress note, Marixa Smith 06/17/2024 02:11:33 PM EDT > Patient has not been scheduled at this time but is in the system, Marixa Zimmerman 07/23/2024 02:14:59 PM > urgent referral was faxed over with most recent progress note and cover sheet, Marixa Zimmerman 07/30/2024 09:48:54 AM > Called and spoke with the office they scheduled her for 09/19/24 @ 10:30am with Nichelle in the [place] office. Patient called and notified Referral Priority [...] Referring Provider Speciality Internal edicine Referred Provider [facility] Referred Provider Specialty Physical Med icine General Notes Leatha Wood MACHINE COMPOSITOR 10/08 10:42:43 AM >Patient to have MRI spine done at [facility] after that result comes in ref patient back to [facility] to discuss possible spinal cord stimulator insertion, Leatha Wood MACHINE COMPOSITOR 10/15/2024 02:34:17 PM >ref/demo/progress note and MRI report faxed to [facility] at regular fax number and fax # [phone] they will call patient to set up appt, Leatha Wood [facility] 10/21/2024 09:59:28 AM > I called spoke to patient she stated she has appt at [facility] for 11/19/2024 Referral Priority Routine Referral Appointment [...] 10:25:50 AM > Referral and progress note Faxed, Marixa Zimmerman 03/02/2025 01:47:13 PM > Office stated they did not receive the referral. Fax number confirmed and refaxedErasmo Amber 03/05/2025 03:53:54 PM >Spoke with Marixa at [facility] stated they have reached out to patient and left a message with no call back. Dr. Noel office reached out to patient and left a message to have the patient call their office to schedule an appointment, number was left on patient voicemail., Marixa Zimmerman 03/05/2025 04:08:27 PM > spoke with patient and gave her the number to [facility]. Patient was asked to call the office back to make us aware of when the appointment is. Referral Priority Routine Referral Appointment Date 04/09/2025 Reason left leg pain Diagnosis 1 Pain of left lower e xtremity (M79.605) Referral Organization Yovanny Noel III, MD Referring Provider First Name Yovanny Referring Provider Last Name Sadie Referring Provider Speciality Internal edicine Referred Organization [facility] Referred Provider Franklin Eason Referred Address [address] [place] [address],[place], [id number], Referred Provider Specialty Vascular Fred meg General Notes Leatha Wood CMA 02/02 01:23:25 PM > called Vilma at Dr Eason office [phone] pt has appt for a vascular ultrasound at on 03/11/2025 at 10am pt then has appt with Dr Eason 03/17/2025 at 11:30am information about this appt mailed and called to patient Referral Priority Routine Referral Appointment Date 03/17/2025 Reason severe back pain e valuate for neurostimulator Diagnosis 1 Lumbar radiculopathy (M54.16) Diagnosis 2 Severe back pain (M5 4.9) Referral Organization Yovanny Noel III, MD Referring Provider First Name Yovanny Referring Provider Last Name Sadie Referring Provider Speciality Internal edicine Referred Provider [facility], Pain Management Referred Provider Specialty Pain Medicin e General Notes Leatha Wood CMA 03/10 09:50:49 AM >ref/demo/progress note /MRI faxed to Pain management at , Leatha Wood [facility] 03/17/2025 11:18:38 AM > I called pain management [phone] they stated pt has appt on 03/30/2025 12:00pm Referral Priority Routine Referral Appointment Date 03/30/2025 Reason lumbar back pain e valuate to see if can have spinal stimulator Diagnosis 1 Lumbar radiculopathy (M54.16) Referral Organization Yovanny Noel III, MD Referring Provider First Name Yovanny Referring Provider Last Name Sadie Referring Provider Speciality Internal M edicine Referred Provider [place] Referred Provider Specialty Orthopedic S urgery General Notes Leatha Wood [facility] 04/02 11:34:20 AM >ref/demo/progress notes/x rays faxed to [place] [facility] patient called and made aware of this and told to call to set up her appt with them, Leatha Wood [facility] 04/06/2025 10:33:13 AM >pt called stated she has appt today at [facility] 04/06/2025 at 3:30pm Referral Priority Routine Medications Medication SIG (Take, Route, Frequency, Duration) Notes Start Date End Date Status Metoprolol Tartrate 100 MG Take 1 tablet by mouth twice daily with food Active Meloxicam 15 MG Take 1 tablet by patricia th once daily Active Benzonatate 200 MG 1 capsule as needed Orally Three times a day 06/24/2024 Active dexAMETHasone 2 MG 1 tablet Orally ever y 12 hrs 10/21/2024 Active Guaiatussin AC 100-10 MG/5ML 10 mL as needed Orally every 6 hrs As needed 07/22/2024 Active Pregabalin 50 MG 1 capsule Orally Twi ce a day Active Loratadine 10 MG 1 tablet Orally Once a day 07/22/2024 Active Simvastatin 40 MG Take 1 tablet by patricia th in the evening Active Lisinopril 20MG TAKE ONE TABLET BY MOUTH EVERY DAY Active Flonase 50 MCG/ACT 1 spray in each nost ril Nasally Once a day 09/28/2023 Active guaiFENesin-Codeine 100-10 MG/5ML 10 mL as needed Orally every 6 hrs 07/22/2024 Active hydrALAZINE HCl 50 MG 1 tablet with food Orally Four times a day Active Lisinopril 40 MG Take 1 tablet by patricia th once daily Active Clopidogrel Bisulfate 75 MG TAKE 1 TABLE T BY MOUTH ONCE DAILY Orally Once a day Active Cyclobenzaprine HCl 10 MG as directed Or ally three times a day 08/15/2022 Active Polyethylene Glycol 3350 17 GM 1 packet mixed with 8 ounces of fluid Orally Once a day Active Gabapentin 300 MG 1 capsule Orally thr ee times a day 01/23/2023 Active Advair Diskus 500-50 MCG/DOSE 1 puff Inhalation every 12 hrs Active Escitalopram Oxalate 20 MG 1 tablet Oral ly Once a day 12/29/2021 Active predniSONE 20 MG TAKE 1 TABLET BY PATRICIA TH ONCE DAILY WITH FOOD OR MILK for 30 Active Ibuprofen 800 MG 1 tablet Orally Thre e times a day 07/28/2016 Active Combivent 18-103 MCG/ACT 2 puffs Inhalat ion Six times a day Active amLODIPine Besylate 10 MG 1 tablet Orall y Once a day Active Montelukast Sodium 10 MG 1 tablet in the evening Orally Once a day Active K-Tab 10 MEQ 1 tablet with food Orally Once a day 02/15/2021 Active Furosemide 40 MG 1 tablet Orally Once a day 02/15/2021 Active Clotrimazole 1 % 1 application Externally Twice a day for 28 days 04/23/2025 08/12/2025 Active dexAMETHasone 2 MG 1 tablet Orally teic e a day 01/27/2025 Active Senna Laxative 8.6 MG 1 tablet Orally tw ice a day 12/29/2024 Active Esomeprazole Magnesium 40 MG Take 1 capsule by mouth once daily Active Pantoprazole Sodium 20 MG 1 tablet 1/2 t o 1 hour before morning meal Orally Once a day 10/27/2024 Active Pregabalin 75 MG 1 capsule Orally Onc e a day 01/27/2025 Active Social History Tobacco Use: Social History [...] Problem Status W/U Status Risk Notes Problem 4198578 Former smoker (Z87.891) Active confirmed She is highly motivated to not smoke. We have discussed a strategy for maintenance of abstinence in times of stress and illness. Problem 999587537 Asthma (J45.909) Active confirmed She has bbeen free of asthma lately. There was no wheezing today. She was breathing room air comfortably. Current therapy was continued. Problem 538108977 Lumbar radiculopathy (M54.16) Active confirmed She continues t o have left-sided sciatica which she finds debilitating he does not wish to take narcotic medications. She has been to neurosurgery and evaluated was told she is not a surgical candidate. She did return to pain management but was only offered further spinal injections which she has already tried several times . An ultrasound of the left leg has been ordered in order to be sure she does not have arterial disease or venous. Referral will be made to Orthopedic surgeon for evaluation for spinal stimulator . Problem Hyperlipidemia (68693220) Hyperlipidemia, unspecified (E78.5) Active confirmed Comprehensive blood work with a fasting lipid profile has been ordered. No change in her medications was made today. Problem Chronic sinusitis (54784875) Chronic sinusitis, unspecified (J32.9) Active confirmed She has been given another course of Augmentin. She reports today that she is beginning to improve and brief more normally. A CT scan of her skull and sinuses showed no significant abnormality. Problem 54018432 Postnasal drip (R09.82) Active confirmed Her symptoms have resolved and she says she feels well today. She is breathing comfortably. Her medications were continued. Problem 07171517 Essential hypertension (I10) Active confirmed Her blood pressure was slightly high today. She has been compliant with her medications. He was given an appointment in the very near future to return to measure it again. If it remains high we'll communicate with the riprap man. Problem 25155380 Other and unspecified hyperlipidemia (E78.5) Active confirmed Comprehensive blood work with a fasting lipid profile is being done periodically.The most recent total cholesterol was within normal limits. Problem CVA - Cerebrovascular accident (850052595) CVA (cerebral vascular accident) (I63.9) Active confirmed She continues t o have mild residual numbness in left side of her face but no muscle weakness is noted. She is able to conduct all of the activities of daily living. Her blood pressure is stable and her weight is dropping steadily. She is consuming a healthy, low-sodium diet. Problem 029507890547918 Left foot pain (M79.672) Active confirmed This has been present for 2 weeks. It is worse when she bears weight. The examination was unremarkable. An x-ray has been ordered. Problem 263999669 Nontoxic uninodular goiter (E04.1) Active confirmed Her thyroid i s not palpable today. She appears to be euthyroid. This problem will be followed closely. Problem 63717178 Vitamin D deficiency (E55.9) Active confirmed She is continuing on vitamin D supplementation. 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 Problem Constipation (95805373) Constipation (K59.00) Active confirmed I gave her instructions to consume one Bolla brands fairly with every breakfast. She will take Senokot twice a day. A followup was arranged. Problem 954711203 Morbid obesity (E66.01) Active confirmed She continues t o participate in the weight-loss program. She has lost 12 pounds since October 31, 2024. She will continue on her current therapies without change. She will be seen frequently to weigh her and form of support. Problem 09384271 Sleep apnea in adult (G47.30) Active confirmed She continues to use her CPAP. Problem 87253116 Reactive depression (F32.9) Active confirmed She has been taking citalopram only intermittently. She will continue to take it on a daily basis. Follow-up visit near future was scheduled. Problem 364641951 Pain of left lower extremity (M79.605) Active confirmed Problem Gastroesophageal reflux disease with esophagitis (disorder) (099785318) Gastro-esophage al reflux disease with esophagitis, without bleeding (K21.00) Active confirmed Her reflux symptoms are well controlled with medication. She is avoiding foods and medication that stimulate acid production. Problem 927145245 Stage 3b chronic kidney disease (N18.32) Active confirmed Her current GFR is 38. She is under the care of nephrology. Her hydrochlorothiaz lucie was stopped. Her blood pressure was reasonable today. Vital Signs Heart Rate 73 /min 03/31/2025 Temperature 97.2 degrees Fahrenheit 03/31/2025 Blood pressure diastolic 86 mm Hg 03/31/2025 Height 63 in 03/31/2025 Blood pressure systolic 140 mm Hg 03/31/2025 Weight 265 lbs 03/31/2025 BMI 46.94 kg/m2 03/31/2025 Encounters Encounter Location Date Provider Diagnosis Yovanny Noel III, MD [address] [place] [address] [place] [address] 05/20/2024 Yovanny Noel Asthma J45.909 ; Oth er and unspecified hyperlipidemia E78.5 ; Nontoxic uninodular goiter E04.1 ; Former smoker Z87.891 ; Essential hypertension I10 ; Reactive depression F32.9 ; Sleep apnea in adult G47.30 ; Gastro-esophageal reflux disease with esophagitis, without bleeding K21.00 and Morbid obesity E66.01 Yovanny Noel III, MD [address] [place] [address] [place] [address] 06/12/2024 Yovanny Noel Asthma J45.909 ; Oth er and unspecified hyperlipidemia E78.5 ; Essential hypertension I10 ; Morbid obesity E66.01 ; Lumbar radiculopathy M54.16 ; Reactive depression F32.9 ; CVA (cerebral vascular accident) I63.9 and Nontoxic uninodular goiter E04.1 Yovanny Noel III, MD [address] [place] [address] [place] [address] 06/24/2024 Yovanny Noel Asthma J45.909 ; Postnasal drip R09.82 ; Other and unspecified hyperlipidemia E78.5 ; Former smoker Z87.891 ; Essential hypertension I10 and Morbid obesity E66.01 Yovanny Noel III, MD [address] [place] [address] [place] [address] 07/15/2024 Yovanny Noel Otitis of right ear H66.91 ; Other and unspecified hyperlipidemia E78.5 ; Nontoxic uninodular goiter E04.1 ; Essential hypertension I10 ; Asthma J45.909 ; Lumbar radiculopathy M54.16 ; Sleep apnea in adult G47.30 ; Chronic sinusitis, unspecified J32.9 and Former smoker Z87.891 Yovanny Noel III, MD [address] [place] [address] [place] [address] 07/22/2024 Yovanny Noel Other and unspecifie d hyperlipidemia E78.5 ; Morbid obesity E66.01 ; Cough R05.9 ; Allergic rhinitis, unspecified J30.9 ; Postnasal drip R09.82 ; Former smoker Z87.891 ; Asthma J45.909 ; Essential hypertension I10 and Lumbar radiculopathy M54.16 Yovanny Noel III, MD [address] [place] [address] [place] [address] 07/30/2024 oYvanny Noel Chronic sinusitis, unspecified J32.9 ; Rhinitis J31.0 ; Stage 3b chronic kidney disease N18.32 ; Gastro-esophageal reflux disease with esophagitis, without bleeding K21.00 ; Morbid obesity E66.01 ; Former smoker Z87.891 ; Asthma J45.909 and Lumbar radiculopathy M54.16 Yovanny Noel III, MD [address] [place] [address] [place] [address] 08/11/2024 Yovanny Noel Chronic sinusitis, unspecified J32.9 ; Morbid obesity E66.01 ; Former smoker Z87.891 ; Asthma J45.909 and Lumbar radiculopathy M54.16 Yovanny Noel III, MD [address] [place] [address] [place] [address] 10/02/2024 Yovanny Noel Asthma J45.909 ; For augusta smoker Z87.891 ; Essential hypertension I10 ; Morbid obesity E66.01 and Lumbar radiculopathy M54.16 Yovanny Noel III, MD [address] [place] [address] [place] [address] 10/15/2024 Yovanny Noel Asthma J45.909 ; For [...] Reactive depression F32.9 Yovanny Noel III, MD [address] [place] [address] [place] [address] 10/21/2024 Yovanny Noel Asthma J45.909 ; Lum bar radiculopathy M54.16 ; Morbid obesity E66.01 ; Sleep apnea in adult G47.30 ; Vitamin D deficiency E55.9 and Reactive depression F32.9 Yovanny Noel III, MD [address] [place] [address] [place] [address] 10/31/2024 Yovanny Noel Asthma J45.909 ; For [place] smoker Z87.891 ; Essential hypertension I10 ; Morbid obesity E66.01 and Lumbar radiculopathy M54.16 Yovanny Noel III, MD [address] [place] [address] [place] [address] 12/29/2024 Yovanny Noel Asthma J45.909 ; Mor bid obesity E66.01 ; Other and unspecified hyperlipidemia E78.5 ; Nontoxic uninodular goiter E04.1 ; Former smoker Z87.891 ; CVA (cerebral vascular accident) I63.9 ; Sleep apnea in adult G47.30 ; Vitamin D deficiency E55.9 ; Stage 3b chronic kidney disease N18.32 and Constipation K59.00 Yovanny Noel III, MD [address] [place] [address] [place] [address] 01/14/2025 Yovanny Noel Asthma J45.909 ; Oth er and unspecified hyperlipidemia E78.5 ; Nontoxic uninodular goiter E04.1 ; Former smoker Z87.891 ; Essential hypertension I10 ; Reactive depression F32.9 ; Vitamin D deficiency E55.9 ; Stage 3b chronic kidney disease N18.32 and Constipation K59.00 Yovanny Noel III, MD [address] [place] [address] [place] [address] 01/27/2025 Yoavnny Noel Morbid obesity E66.0 1 ; Other and unspecified hyperlipidemia E78.5 ; Nontoxic uninodular goiter E04.1 ; Former smoker Z87.891 ; Essential hypertension I10 ; Asthma J45.909 ; CVA (cerebral vascular accident) I63.9 ; Sleep apnea in adult G47.30 ; Reactive depression F32.9 and Lumbar radiculopathy M54.16 Yovanny Noel III, MD [address] [place] [address] [place] [address] 03/03/2025 Yovanny Noel Left foot pain M79.6 72 ; Other and unspecified hyperlipidemia E78.5 ; Nontoxic uninodular goiter E04.1 ; Former smoker Z87.891 ; Essential hypertension I10 ; Asthma J45.909 ; Morbid obesity E66.01 ; Lumbar radiculopathy M54.16 ; Sleep apnea in adult G47.30 and Reactive depression F32.9 Yovanny Noel III, MD [address] [place] [address] [place] [address] 03/31/2025 Yovanny Noel Lumbar radiculopathy M54.16 ; Postnasal drip R09.82 ; Other and unspecified hyperlipidemia E78.5 ; Nontoxic uninodular goiter E04.1 ; Former smoker Z87.891 ; Essential hypertension I10 ; Asthma J45.909 ; Morbid obesity E66.01 ; CVA (cerebral vascular accident) I63.9 ; Stage 3b chronic kidney disease N18.32 and Sleep apnea in adult G47.30 Yovanny Noel III, MD [address] [place] [address] [place] [address] 04/15/2025 Yovanny Noel Former smoker Z87.89 1 ; Postnasal drip R09.82 ; Chronic sinusitis, unspecified J32.9 ; Other and unspecified hyperlipidemia E78.5 ; Nontoxic uninodular goiter E04.1 ; Essential hypertension I10 and Asthma J45.909 Yovanny Noel III, MD [address] [place] [address] [place] [address] 05/23/2024 Yovanny Noel Asthma J45.909 Yovanny Noel III, MD [address] [place] [address] [place] [address] 06/20/2024 Yovanny Noel III, MD [address] [place] [address] [place] [address] 06/20/2024 Yovanny Noel III, MD [address] [place] [address] [place] [address] 06/23/2024 Yovanny Noel III, MD [address] [place] [address] 07/18/2024 Yovanny Noel III, MD [address] [place] [address] 07/21/2024 Yovanny Noel III, MD [address] [place] [address] [place] [address] 08/08/2024 Yovanny Ferrer R05.9 Yovanny Noel III, MD [address] [place] [address] 08/18/2024 Yovanny Noel III, MD [address] [place] [address] 10/17/2024 Yovanny Noel III, MD [address] [place] [address] [place] [address] 10/17/2024 Yovanny Noel III, MD [address] [place] [address] [place] [address] 10/21/2024 Yovanny Noel III, MD [address] [place] [address] [place] [address] 10/27/2024 Yovanny Noel III, MD [address] [place] [address] [place] [address] 03/23/2025 Yovanny Noel III, MD [address] [place] [address] [place] [address] 04/07/2025 Yovanny Noel III, MD [address] [place] [address] [place] [address] 04/23/2025 Yovanny Noel III, MD [address] [place] [address] [place] [address] 04/23/2025 Yovanny Noel Assessments Encounter Date Diagnosis (ICD Code) Assessment Notes Treatment Notes Treatment Clinical Notes 05/20/2024 Asthma (ICD-10 - J45.909) The wheezing [...] weigh her and form of support. 03/03/2025 Other and unspecified hyperlipidemia (ICD-10 - E78.5) Comprehensive blood work with a fasting lipid profile is being done periodically.The most recent total cholesterol was within normal limits. 03/03/2025 Left foot pain (ICD-10 - M79.672) This has been present for 2 weeks. It is worse when she bears weight. The examination was unremarkable. An x-ray has been ordered. 03/31/2025 Lumbar radiculopathy (ICD-10 - M54.16) She continues to have left-sided sciatica which she finds debilitating he does not wish to take narcotic medications. She has been to neurosurgery and evaluated was told she is not a surgical candidate. She did return to pain management but was only offered further spinal injections which she has already tried several times . An ultrasound of the left leg has been ordered in order to be sure she does not have arterial disease or venous. Referral will be made to Orthopedic surgeon for evaluation for spinal stimulator . 03/31/2025 Postnasal drip (ICD-10 - R09.82) She seems to be miserable and cannot sleep. None of her usual remedies have been effective so far. This may be an allergy but given her a course of prednisone again. 04/15/2025 Former smoker (ICD-10 - Z87.891) She is highly motivated to not smoke. We have discussed a strategy for maintenance of abstinence in times of stress and illness. 04/15/2025 Postnasal drip (ICD-10 - R09.82) Her symptoms have resolved and she says she feels well today. She is breathing comfortably. Her medications were continued. 05/23/2024 Asthma (ICD-10 - J45.909) The wheezing has resolved and she is now breathing comfortably. Current therapy was continued. 08/08/2024 Cough (ICD-10 - R05.9) 05/20/2024 Nontoxic uninodular goiter (ICD-10 - E04.1) [...] This problem will be followed closely. 03/03/2025 Nontoxic uninodular goiter (ICD-10 - E04.1) Her thyroid is not palpable today. She appears to be euthyroid. This problem will be followed closely. 03/31/2025 Other and unspecified hyperlipidemia (ICD-10 - E78.5) Comprehensive blood work with a fasting lipid profile is being done periodically.The most recent total cholesterol was within normal limits. 04/15/2025 Chronic sinusitis, unspecified (ICD-10 - J32.9) She has been given another course of Augmentin. She reports today that she is beginning to improve and brief more normally. A CT scan of her skull and sinuses showed no significant abnormality. 05/20/2024 Former smoker (ICD-10 - Z87.891) She [...] in times of stress and illness. 03/03/2025 Former smoker (ICD-10 - Z87.891) She is highly motivated to not smoke. We have discussed a strategy for maintenance of abstinence in times of stress and illness. 03/31/2025 Nontoxic uninodular goiter (ICD-10 - E04.1) Her thyroid is not palpable today. She appears to be euthyroid. This problem will be followed closely. 04/15/2025 Other and unspecified hyperlipidemia (ICD-10 - E78.5) Comprehensive blood work with a fasting lipid profile is being done periodically.The most recent total cholesterol was within normal limits. 05/20/2024 Essential hypertension (ICD-10 - I10) She [...] to reduce the blood pressure lifestyle modification. 03/03/2025 Essential hypertension (ICD-10 - I10) Her blood pressure was slightly high today. She has been compliant with her medications. He was given an appointment in the very near future to return to measure it again. If it remains high we'll communicate with the riprap man. 03/31/2025 Former smoker (ICD-10 - Z87.891) She is highly motivated to not smoke. We have discussed a strategy for maintenance of abstinence in times of stress and illness. 04/15/2025 Nontoxic uninodular goiter (ICD-10 - E04.1) Her thyroid is not palpable today. She appears to be euthyroid. This problem will be followed closely. 05/20/2024 Reactive depression (ICD-10 - F32.9) She [...] air comfortably. Current therapy was continued. 03/03/2025 Asthma (ICD-10 - J45.909) She has bbeen free of asthma lately. There was no wheezing today. She was breathing room air comfortably. Current therapy was continued. 03/31/2025 Essential hypertension (ICD-10 - I10) Her blood pressure was slightly high today. She has been compliant with her medications. He was given an appointment in the very near future to return to measure it again. If it remains high we'll communicate with the riprap man. 04/15/2025 Essential hypertension (ICD-10 - I10) Her blood pressure was slightly high today. She has been compliant with her medications. He was given an appointment in the very near future to return to measure it again. If it remains high we'll communicate with the riprap man. 05/20/2024 Sleep apnea in adult (ICD-10 - [...] She is consuming a healthy, low-sodium diet. 03/03/2025 Morbid obesity (ICD-10 - E66.01) She continues to participate in the weight-loss program. She has lost 12 pounds since October 31, 2024. She will continue on her current therapies without change. She will be seen frequently to weigh her and form of support. 03/31/2025 Asthma (ICD-10 - J45.909) She has bbeen free of asthma lately. There was no wheezing today. She was breathing room air comfortably. Current therapy was continued. 04/15/2025 Asthma (ICD-10 - J45.909) She has bbeen free of asthma lately. There was no wheezing today. She was breathing room air comfortably. Current therapy was continued. 05/20/2024 Gastro-esophageal reflux disease with esophagitis, without [...] She continues to use her CPAP. 03/03/2025 Lumbar radiculopathy (ICD-10 - M54.16) She [...] does not have arterial disease or venous 03/31/2025 Morbid obesity (ICD-10 - E66.01) She continues to participate in the weight-loss program. She has lost 12 pounds since October 31, 2024. She will continue on her current therapies without change. She will be seen frequently to weigh her and form of support. 05/20/2024 Morbid obesity (ICD-10 - E66.01) She is involved in the weight loss program at [facility] and has had bariatric surgery. She sees [...] basis. Follow-up visit near future was scheduled. 03/03/2025 Sleep apnea in adult (ICD-10 - G47.30) She continues to use her CPAP. 03/31/2025 CVA (cerebral vascular accident) (ICD-10 - I63.9) She continues to have mild residual numbness in left side of her face but no muscle weakness is noted. She is able to conduct all of the activities of daily living. Her blood pressure is stable and her weight is dropping steadily. She is consuming a healthy, low-sodium diet. 10/15/2024 Sleep apnea in adult (ICD-10 - [...] not have arterial disease or venous 03/03/2025 Reactive depression (ICD-10 - F32.9) She has been taking citalopram only intermittently. She will continue to take it on a daily basis. Follow-up visit near future was scheduled. 03/31/2025 Stage 3b chronic kidney disease (ICD-10 - N18.32) Her current GFR is 38. She is under the care of nephrology. Her hydrochlorothiazide was stopped. Her blood pressure was reasonable today. 10/15/2024 Vitamin D deficiency (ICD-10 - E55.9) She is continuing on vitamin D supplementation. 03/31/2025 Sleep apnea in adult (ICD-10 - G47.30) She continues to use her CPAP. 10/15/2024 Reactive depression (ICD-10 - F32.9) She [...] 12/04/2022 Next Appt Details Provider Name:Yovanny Noel, 10/05/2025 10:30:00 AM, [address] [place] [address] , [address], [place], [address], Insurance Providers Payer Name Payer Address Payer Phone Subscriber Number Group Number Insured Name Patient Relationship to Insured Coverage Start Date Coverage End Date MEDICARE NGS [address] [place] [address] [phone] [id number] BarrettimtiazLynnette alexander Self - patient is the insured MEDICAID [place] [address] [place] [id number] [phone] [id number] BarrettimtiazLynnette alexander Self - patient is the insured Medical [...]
--- OUTSIDE RECORDS SUMMARY | 2025-05-18 15:40 | XMS_ITS | Clinical Summary ---
Author Organization [facility] Address [address] [place] [address] Phone Care Team Providers Care Police Booking Officer Name Role Phone Yovanny Noel MD Primary Care Provider [phone] Allergies Active Allergy Reactions Criticality Noted Date [...] DAILY. STOP POTASSIUM SUPPLEMENT. 1 Active Tiotropium [place] Monohydrate 1.25 MCG/ACT aerosol solution Inhale 1 [...] Obstructive sleep apnea syndrome 02/07/2018 Overview (03/26/2021): [facility] Home Sleep Apnea Test: Date 04/30/2019; [...] Cancer Screening: Sigmoidoscopy 2010 Influenza Vaccine (#1) 2025 Hepatitis B Vaccine Aged Out No longe r eligible based on patient's age to complete this topic Insurance Medicare Medicaid [place] Medicare Care Teams Police Booking Officer Relationship Specialty Start Date End Date Yovanny Noel MD [address] [place] [address] , [address] [place] [address] PCP - General Medical Oncology 01/18/24
== END 2025-05-18 15:48 | disposition home or self-care (01) ==
LOC: HO.HCS 15:00
PROVIDERS: PCP Internal Medicine Medical Oncology; Visit Provider Internal Medicine Cardiovascular Disease
DX: I1A.0 Resistant hypertension (principal); R94.31 Abnormal electrocardiogram [ECG] [EKG]
CPT/HCPCS: 99214

== ENCOUNTER → 2025-05-18 14:59 | Outpatient (BNVA) | payer MEDICARE, MEDICAID, SELFPAY | PROVIDERS: PCP Internal Medicine Medical Oncology; Visit Provider Internal Medicine Cardiovascular Disease | DX: I1A.0 Resistant hypertension (principal); R94.31 Abnormal electrocardiogram [ECG] [EKG] | CPT/HCPCS: 99212 ==

== ENCOUNTER 2025-09-07 10:01 | Outpatient (AMB) | payer MEDICARE, MEDICAID, SELFPAY ==
--- NOTE | 2025-09-07 10:11 | A.OFFVIS_ITS ---
Vital Signs 09/07/25 10:12 Height 5 ft 5 in Weight 270 lb 4.587 oz BMI 45.0 BP 140/70 H Blood Pressure Location Lt radial Position Sitting Pulse 75 Pulse Source Pulse Oximeter Intake Visit Reasons: 3m follow up Intake Note: 3 mth fup Puzzle Assembler Required: No Accompanied by: Self / Same As Patient Allergies No Known Allergies Allergy (Verified 03/30/25 12:05) Medication List - Last Reconciled 09/07/25 by Alcon Villalobos MD albuterol sulfate 2.5 mg (3 mL) inhalation Q4H PRN 30 days albuterol sulfate 90 mcg/actuation 2 inhalations inhalation Q6H PRN 30 days amlodipine 10 mg PO DAILY aspirin (Adult Aspirin Regimen) 81 mg PO DAILY bupropion HCl XL 300 mg PO DAILY cholecalciferol (vitamin D3) 50 mcg PO DAILY clopidogrel 75 mg PO DAILY CPAP (CPAP Machine/Device) As directed escitalopram oxalate 20 mg PO DAILY esomeprazole magnesium 40 mg PO DAILY fluticasone furoate-vilanterol 200-25 mcg/dose (Breo Ellipta) 1 inh inhalation DAILY 30 days fluticasone propionate 50 mcg/actuation 1 spray intranasal DAILY barsaaazmvy-kamjgcftf-lgapecvm 200-62.5-25 mcg (Trelegy Ellipta) 1 inh inhalation DAILY 30 days hydralazine 50 mg PO QID hydrochlorothiazide 25 mg PO DAILY hydroxyzine HCl 50 mg PO TID lisinopril 40 mg PO DAILY loratadine 10 mg PO DAILY 30 days meloxicam 15 mg PO DAILY metoprolol tartrate 50 mg PO BID montelukast 10 mg PO DAILY 30 days mupirocin 2% 1 appl topical BID 7 days nebulizers As directed oxymetazoline 0.05% (Afrin (oxymetazoline)) 2 sprays intranasal Q12H PRN 5 days potassium chloride ER 10 mEq PO DAILY simvastatin 40 mg PO BEDTIME spironolactone 25 mg PO DAILY 90 days trazodone 100 mg PO BID HPI Comments Details: 64-year-old female here for follow-up. She was seen for hypertension previously and her blood pressure has improved on the current medication regimen. She also had exertional chest discomfort for which she underwent cardiac catheterization which did not show any significant coronary artery disease. She has morbid obesity and underwent bariatric surgery. She has lost approximately 90+ lb at this point. She is here for follow-up. She is denying any chest discomfort shortness of breath. Her main complaint is left shoulder pain. 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 She is saying she underwent physiotherapy but there has not been any significant improvement in the shoulder. Blood pressure control is good. Taking medications regularly. 04/23/23: Today she returns for follow-up. She is status post bariatric surgery and continues to lose weight. She has no chest discomfort shortness of breath. She is saying her asthma is under control. She has been experiencing some episodes of dizziness which she describes as lightheadedness. These episodes happen when she is standing or sitting for long time. She feels hot and flushed and starts feeling lightheaded. She is saying she drinks lot of water and tries to hydrate herself. She has never had vasovagal syncope or fainting episodes before. 10/15/2023: She returns for follow-up. She is status post bariatric surgery and was losing weight but unfortunately due to stress he started eating more junk food and has gained some weight now. On last visit blood pressure was mildly elevated but she was complaining of some dizziness and we decided not to increa se her medications. On follow-up her blood pressure is higher. She is saying that she has gained some weight also. She has seeing a therapist to see how to cope with stress because she overeats whenever she is under stress. Taking medications regularly. She is on Plavix for previous TIA. Occasionally she feels left side is facial tingling. 12/12/23: She returns for follow-up. She continues to have significantly elevated blood pressure despite being on multiple medication. She was started hydrochlorothiazide last time. She is saying that she has changed her diet and is again beginning to lose some weight. She has lost 3 lb compared to 10/15/2023. Also complaining of some shortness of breath. She is saying shortness of breath can even happen sitting down. Previously had TIA and has been on Plavix. 04/21/2024: She is here for follow-up. She is taking amlodipine 10 mg, hydralazine 50 mg 4 times a day, hydrochlorothiazide 25 mg daily, lisinopril 40 mg daily, metoprolol tartrate 50 mg twice a day and spironolactone 25 mg daily. Her blood pressure in the office today is 130/70. She has been taking medications regularly. Denying any chest discomfort shortness of breath. Previously had TIA and has been on Plavix 75 mg daily. No further neurological complaints from her. She is watching her diet and has lost weight and has lost 6 lb since 02/18/2024. 08/25/2024: She is here for follow-up. Blood pressure is well controlled on multiple medicines right now. She has been exercising and losing weight again. She has been on aspirin and Plavix with previous history of TIA. 12/24/2024: She returns for follow-up. She is complaining of some numbness on the left side of the body which has been present for 2-3 months persistently. She is able to walk and function. She is saying that she gets out of breath with activities but this is significantly better after she had weight loss. Manual blood pressure is 120/80. Her EKG has abnormality with inferior T-wave inversions and slight ST depressions and lateral ST depressions. She is denying any chest discomfort or worsening shortness of breath. She is wearing her CPAP when she is sleeping. 05/18/2025: She is here for follow-up. Denying any chest discomfort. She gets some dyspnea with activities which is chronic. Blood pressure is well controlled. She has noticed some lightheadedness when she changes her posture. This has happened in the last couple of weeks a few times. Last episode was on Sunday at 22:00 at night. She is saying that she has been out in the sun and with the recent heat wave it is possible that this is related to dehydration. She is saying that she has been drinking water. 09/07/2025: She is here for follow-up. Her blood pressure is elevated. She is saying she is taking all her medications. She underwent back surgery in July 2025. She is recovering from that. She is saying that she is in mild pain currently. She is on spironolactone and potassium supplements. She has not had any recent blood workup. 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 CVA (cerebral vascular accident) DEMI on CPAP Dyspnea Chest pressure Asthma Surgical History (Updated 09/07/25 @ 10:13 by Paula Pozo [facility]) History of back surgery History of gastric bypass History of left knee surgery History of hysterectomy Family History Mother Breast cancer HTN (hypertension) Father Kidney disease HTN (hypertension) Maternal Uncle Diabetes Son Diabetes Social History Alcohol intake: never Patient Tobacco Use Status: Never used Tobacco Review of Systems Const Denies chills, Denies fatigue, Denies fever(s), Denies frequent falls, Denies weakness, Denies weight gain and Denies weight loss ENT Denies dizziness Card Denies chest pain, Denies leg edema, Denies lightheadedness, Denies palpitations, Denies dyspnea and Denies dyspnea on exertion Resp Denies cough, Denies dyspnea and Denies dyspnea on exertion GI Denies hematochezia Musc Denies abnormal gait, Denies muscle weakness, Denies numbness, Denies radiating pain into limb and Denies tingling Neuro Denies abnormal gait, Denies dizziness, Denies frequent falls, Denies numbness, Denies tingling and Denies weakness Endo Denies fatigue and Denies palpitations Physical Exam Vital Signs: Last Vital Signs Pulse 75 09/07/25 10:12 BP 140/70 H 09/07/25 10:12 BMI result Body Mass Index 45.0 GENERAL APPEARANCE: in no acute distress, obese. NECK/THYROID: no carotid bruit, no jugular venous distention. SKIN: no suspicious lesions, warm and dry. HEART: no murmurs, regular rate and rhythm, S1, S2 normal. LUNGS: clear to auscultation bilaterally. ABDOMEN: normal, bowel sounds present, soft, nontender, nondistended. EXTREMITIES: no clubbing, cyanosis. PERIPHERAL PULSES: equal. NEUROLOGIC: alert and oriented. Assessment & Plan Assessment & Plan (1) Resistant hypertension: Code(s): I1A.0 - Resistant hypertension Category: Medical Plan Pleasant 64 year female who is here for follow-up. She has history of resistant hypertension. She is on multiple medications. She previously had workup for secondary hypertension and no obvious cause was found. Her blood pressure in the office is elevated today. She is in mild pain after recent surgery. She also has not had any recent blood workup. She is taking potassium supplements and spironolactone. We will send her for basic metabolic panel. She is fasting and I will check a lipid panel on her too. Once labs are back I will adjust her medications. She is compliant with diet. She had bariatric surgery and has lost significant weight. Thank you for allowing me to participate in the care of your patient. Please feel free to contact me if you have any questions. Orders: Orders Basic Metabolic Panel Today N18.31 - Chronic kidney disease, stage 3a Lipid Panel Today N18.31 - Chronic kidney disease, stage 3a Coding Level of Care Code Est Pt Level 4 (04976) Diagnoses Resistant hypertension I1A.0
[2025-09-07 10:12] VITALS: BP 140/70; PULSE 75; BMI 45.0
== END 2025-09-07 10:29 | disposition home or self-care (01) ==
LOC: HO.HCS 10:02
PROVIDERS: PCP Internal Medicine Medical Oncology; Visit Provider Internal Medicine Cardiovascular Disease
DX: I1A.0 Resistant hypertension (principal)
CPT/HCPCS: 99214

== ENCOUNTER 2025-09-07 10:01 | Outpatient (REF) | payer MEDICARE, MEDICAID, SELFPAY ==
[2025-09-07 11:56] LABS: Anion Gap 13 (12-20); Blood Urea Nitrogen 27 mg/dL (9-16); Calcium 9.5 mg/dL (8.4-10.2); Carbon Dioxide 21 mmol/L (22-29); Chloride 115 mmol/L (96-108); Cholesterol 212 mg/dL (<200); Estimated Glomerular Filt Rate 47; HDL Cholesterol 56 mg/dL (>40); Potassium 3.9 mmol/L (3.3-5.1); Sodium 145 mmol/L (135-145); Triglycerides 61 mg/dL (<150)
== END 2025-09-07 10:02 | disposition home or self-care (01) ==
LOC: HO.LAB 10:01
PROVIDERS: Absent Provider Internal Medicine Nephrology; PCP Internal Medicine Medical Oncology; Visit Provider Internal Medicine Cardiovascular Disease
DX: I1A.0 Resistant hypertension (principal); Z79.899 Other long term (current) drug therapy; Z98.84 Bariatric surgery status; Z79.82 Long term (current) use of aspirin
CPT/HCPCS: 36415; 80048; 80061; 99212

== ENCOUNTER 2025-09-08 13:07 | Outpatient (REF) | payer MEDICARE, MEDICAID, SELFPAY ==
--- OUTSIDE RECORDS SUMMARY | 2025-06-10 06:42 | XMS_ITS ---
Author Organization Yovanny Noel III, MD Address [address] [facility] [place] [address] Care Team Providers Care Senior Data Integration Developer Name Role Phone Dr. Yovanny Noel III [...] Provider Diagnosis Yovanny Noel III, MD [address] [place] [address] [place] [address] 06/10/2025 Yovanny Noel Postnasal drip R09.82 Assessments [...] Provider Name:Yovanny Noel , 10/05/2025 10:30:00 AM, [address] [place] [address], [place] [address], [place], [address], Progress Notes * BURAKAgaie TDOB: [birth year] (64 yo F)Acc No.[id number]:06/10/2025 Patient: Lynnette POLLOCK :1960 A ge:64 Y S ex:Female Address:[address] [place] [phone] * Refills Refill Simvastatin Tablet, 40 MG, Orally, 90, Take 1 tablet by mouth in the evening, Once a day, 90 days, Refills=3 * true * Date: Generated for Noreen fonseca/Joel/Randysmitting on: 11/09/2024 05:25 PM EST
--- OUTSIDE RECORDS SUMMARY | 2025-06-26 05:28 | XMS_ITS ---
Author Organization Yovanny Noel III, MD Address [address] [place] [address] Care Team Providers Care Water Safety Instructor Name Role Phone Dr. Yovanny Noel III Primary Care Provider [phone] REASON FOR VISIT Rx Request Social History Sex Assigned At : Social History Observation Description Sex Assigned At Female Encounters Encounter Location Date Provider Diagnosis Yovanny Noel III, MD [address] [place] [address] [place] [address] 06/26/2025 Yovanny Noel Plan Of Treatment Next Appt Details Provider Name:Yovanny Noel , 10/05/2025 10:30:00 AM, [address] [place] [address] [place], [address], Progress Notes * BURAKLynnette TDOB: [birth year] (64 yo F)Acc No.[id number]:06/26/2025 Patient: Lynnette POLLOCK :1960 A ge:64 Y S ex:Female Address:[address] [place] [phone] * true * Date: Generated for Noreen fonseca/Joel/Gustabo on: 11/09/2024 05:21 PM EST
--- OUTSIDE RECORDS SUMMARY | 2025-07-14 04:55 | XMS_ITS ---
Author Organization Yovanny Noel III, MD Address [address] [facility] [place] [address] Care Team Providers Care Motor Room Controller Name Role Phone Dr. 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 Form Social History Sex Assigned At : Social History Observation Description Sex Assigned At Female Encounters Encounter Location Date Provider Diagnosis Yovanny Noel III, MD [address] [place] [address] [place] [address] 07/14/2025 Yovanny Noel Plan Of Treatment Next Appt Details Provider Name:Yovanny Noel , 10/05/2025 10:30:00 AM, [address] [place] [address] [place], [address], Progress Notes * BURAKLynnette TDOB: [birth year] (64 yo F)Acc No.[id number]:07/14/2025 Patient: Lynnette POLLOCK :1960 A ge:64 Y S ex:Female Address:[address] [place] [phone] * true * Date: Generated for Noreen fonseca/Joel/Gustabo on: 11/09/2024 05:25 PM EST
--- OUTSIDE RECORDS SUMMARY | 2025-07-28 04:43 | XMS_ITS ---
Author Organization Yovanny Noel III, MD Address [address] [facility] [place] [address] Care Team Providers Care Custom Miller Name Role Phone Dr. Yovanny Noel III Primary Care Provider REASON FOR VISIT Message Social History Sex Assigned At : Social History Observation Description Sex Assigned At Female Encounters Encounter Location Date Provider Diagnosis Yovanny Noel III, MD [address] [place] [address] [place] [address] 07/28/2025 Yovanny Noel Plan Of Treatment Next Appt Details Provider Name:Yovanny Noel , 10/05/2025 10:30:00 AM, [address] [place] [address] [place], [address], Progress Notes * NANOLynnette TDOB: [birth year] (64 yo F)Acc No.[id number]:07/28/2025 Patient: Lynnette POLLOCK :1960 A ge:64 Y S ex:Female Address:[address] [place] [phone] * true * Date: Generated for Noreen fonseca/Joel/Gustabo on: 11/09/2024 05:23 PM EST
--- OUTSIDE RECORDS SUMMARY | 2025-07-29 09:53 | XMS_ITS ---
Author Organization Yovanny Noel III, MD Address [address] [facility] [place] [address] Care Team Providers Care Architectural Model Maker Name Role Phone Dr. Yovanny Noel III Primary Care Provider [phone] REASON FOR VISIT Verbal Orders Social History Sex Assigned At : Social History Observation Description Sex Assigned At Female Encounters Encounter Location Date Provider Diagnosis Yovanny Noel III, MD [address] [place] [address] [place] [address] 07/29/2025 Yovanny Noel Plan Of Treatment Next Appt Details Provider Name:Yovanny Noel , 10/05/2025 10:30:00 AM, [address] [place] [address] [place], [address], Progress Notes * BURAKLynnette TDOB: [birth year] (64 yo F)Acc No.[id number]:07/29/2025 Patient: Lynnette POLLOCK :1960 A ge:64 Y S ex:Female Address:[address] [place] [phone] * true * Date: Generated for Noreen fonseca/Joel/Gustabo on: 11/09/2024 05:23 PM EST
--- OUTSIDE RECORDS SUMMARY | 2025-07-31 05:45 | XMS_ITS ---
Author Organization Yovanny Noel III, MD Address [address] [place] [address] Care Team Providers Care Occupational Therapy Technician Name Role Phone Dr. Yovanny Noel III Primary Care Provider [phone] Allergies Allergen (clinical drug ingredient) Drug/Non Drug [...] daily Active Clotrimazole 1 % 1 application Neonatal Specialist ally Twice a day 04/23/2025 Active Simvastatin [...] Date Provider Diagnosis Yovanny Noel III, MD [address] [place] [address] [address] GARCIAJOVANNY, YASMEEN [phone] 07/31/2025 Yovanny Noel Former smoker Z87.89 1 [...] to have postoperative pain. She is receiving [facility] physical therapy. She is encouraged to [...] once daily Clotrimazole 1 % 1 application Neonatal Specialist ally Twice a day 04/23/2025 Simvastatin 40 [...] Provider Name:Yovanny Noel , 10/05/2025 10:30:00 AM, [address] [place] [address] [address] [address], [place], [phone], Progress Notes * Lynnette MCGILL TDOB: [birth year] (64 yo F)Acc No.[id number]:07/31/2025 Progress Notes Patient: Lynnette POLLOCK Provider: Preston Noel MD :1960 A ge:64 Y S ex:Female Date:07/31/2025 Address:[address] [place], [place] [id number] Subjective: * Chief Complaints: * C hronic lumbar spine painLumbar spondylolisthesis with radiculopathyHyperlipidemiaGoiterHypertensionMorbid obesityDepressionSleep apneaStage IIIB renal diseaseSleep apnea * HPI: C OVID-19 Screening: She was discharged from the [facility] July 12, 2025 after and [...] Fuentes, Benson, Marie. She was born in [place]. * Medications: T akingFlonase 50 MCG/ACT Suspension [...] MD Date: Generated for Noreen fonseca/Joel/Gustabo on: 11/09/2024 05:24 PM EST History and Physical Notes * HPI [...]
--- OUTSIDE RECORDS SUMMARY | 2025-08-05 10:56 | XMS_ITS ---
Author Organization Yovanny Noel III, MD Address [address] [place] [address] Care Team Providers Care Manager Area Name Role Phone Dr. Yovanny Noel III Primary Care Provider REASON FOR VISIT Med List Updated Medications Medication SIG (Take, Route, Frequency, Duration) Notes Start Date End Date Status dexAMETHasone 2 MG 1 tablet Orally teic e a day 01/27/2025 Active Pregabalin 75 MG 1 capsule Orally Onc e a day 01/27/2025 Active Loratadine 10 MG Take 1 tablet by paras th once daily Active Clotrimazole 1 % 1 application Director Of Consumer Marketing ally Twice a day 04/23/2025 Active Simvastatin [...] ONCE DAILY Orally Once a day Active Senna Laxative 8.6 MG 1 tablet Orally tw ice a day 12/29/2024 Active Cyclobenzaprine HCl 10 MG as directed Or ally three times a day 08/15/2022 Active Gabapentin 300 MG 1 capsule Orally thr ee times a day 01/23/2023 Active Furosemide 40 MG 1 tablet Orally Once a day 02/15/2021 Active K-Tab 10 MEQ 1 tablet with food Orally Once a day 02/15/2021 Active Advair Diskus 500-50 MCG/DOSE 1 puff Inhalation every 12 hrs Active Combivent 18-103 MCG/ACT 2 puffs Inhalat ion Six times a day Active Escitalopram Oxalate 20 MG 1 tablet Oral ly Once a day 12/29/2021 Active Montelukast Sodium 10 MG 1 tablet in the evening Orally Once a day Active Ibuprofen 800 MG 1 tablet Orally Thre e times a day 07/28/2016 Active Esomeprazole Magnesium 40 MG Take 1 caps ule by mouth once daily Active Metoprolol Tartrate 100 MG Take 1 tablet by mouth twice daily with food Active Pantoprazole Sodium 20 MG 1 tablet 1/2 t o 1 hour before morning meal Orally Once a day 10/27/2024 Active Flonase 50 MCG/ACT 1 spray in each nost ril Nasally Once a day 09/28/2023 Active Social History Sex Assigned At : Social History Observation Description Sex Assigned At Female Encounters Encounter Location Date Provider Diagnosis Yovanny Noel III, MD [address] [place] [address] [address] [place] [address] 08/05/2025 Yovanny Noel Plan Of Treatment Next Appt Details Provider Name:Yovanny Noel , 10/05/2025 10:30:00 AM, [address] [place] [address] [place], [address], Progress Notes * Lynnette MCGILL TDOB: [birth year] (64 yo F)Acc No.[id number]:08/05/2025 Patient: Lynnette POLLOCK :1960 A ge:64 Y S ex:Female Address:[address] [place] [phone] Subjective: * Chief Complaints: * M ed List Updated * Medical History: * Surgical History: * Hospitalization/Major Diagno stic Procedure: * Medications: T akingFlonase 50 MCG/ACT Suspension 1 spray in each nostril Nasally Once a day Metoprolol Tartrate 100 MG Tablet [...] in the evening Orally Once a day Furosemide 40 MG [...] Take 1 tablet by mouth once daily Clopidogrel Bisulfate 75 MG Tablet TAKE 1 TABLET BY MOUTH ONCE DAILY Orally Once a day Senna Laxative 8.6 MG Tablet 1 tablet Orally twice a day dexAMETHasone 2 MG Tablet 1 tablet Orally teice a day Pregabalin 75 MG Capsule 1 capsule Orally Once a day Clotrimazole 1 % Cream 1 application Externally Twice a day Simvastatin 40 MG Tablet Take 1 tablet by mouth in the evening Orally Once a day Loratadine 10 MG Tablet Take 1 tablet by mouth once daily Taking Flonase 50 MCG/ACT Suspension 1 spray in each nostril Nasally Once a day Taking Metoprolol Tartrate 100 MG [...] the evening Orally Once a day Taking Furosemide 40 MG Tablet 1 tablet Orally Once a day Taking K- Tab 10 MEQ Tablet Extended Release [...] 1 tablet by mouth once daily Taking Clopidogrel Bisulfate 75 MG Tablet TAKE 1 TABLET BY MOUTH ONCE DAILY Orally Once a day Taking Senna Laxative 8.6 MG Tablet 1 tablet Orally twice a day Taking dexAMETHasone 2 MG Tablet 1 tablet Orally teice a day Taking Pregabalin 75 MG Capsule 1 capsule Orally Once a day Taking Clotrimazole 1 % Cream 1 application Externally Twice a day Taking Simvastatin 40 MG Tablet Take 1 tablet by mouth in the evening Orally Once a day Taking Loratadine 10 MG Tablet Take 1 tablet by mouth once daily DiscontinuedhydrALAZINE HCl 50 MG Tablet 1 tablet with food Orally Four times a day amLODIPine Besylate 10 MG Tablet 1 tablet Orally Once a day Lisinopril 20MG Tablet TAKE ONE TABLET BY MOUTH EVERY DAY Discontinued hydrALAZINE HCl 50 MG Tablet 1 tablet with food Orally Four times a day Discontinued amLODIPine Besylate 10 MG Tablet 1 tablet Orally Once a day Discontinued Lisinopril 20MG Tablet TAKE ONE TABLET BY MOUTH EVERY DAY Objective: * Vitals: * Physical Examination: Assessment: Plan: * Treatment: * Procedure Codes: * true * Date: Generated for Noreen Stearns/Gustabo on: 11/09/2024 05:24 PM EST
--- OUTSIDE RECORDS SUMMARY | 2025-08-12 04:05 | XMS_ITS ---
Author Organization Yovanny Noel III, MD Address [address] [place] [address] Care Team Providers Care Residential Solar Sales Consultant Name Role Phone Dr. Yovanny Noel III Primary Care Provider REASON FOR VISIT Rx Request Social History Sex Assigned At : Social History Observation Description Sex Assigned At Female Encounters Encounter Location Date Provider Diagnosis Yovanny Noel III, MD [address] [place] [address] [place] [address] 08/12/2025 Yovanny Noel Plan Of Treatment Next Appt Details Provider Name:Yovanny Noel , 10/05/2025 10:30:00 AM, [address] [place] [address] [place], [address], Progress Notes * NANOLynnette TDOB: [birth year] (64 yo F)Acc No.[id number]:08/12/2025 Patient: Lynnette POLLOCK :1960 A ge:64 Y S ex:Female Address:[address] [place] [phone] * true * Date: Generated for Noreen fonseca/Joel/Gustabo on: 11/09/2024 05:24 PM EST
--- OUTSIDE RECORDS SUMMARY | 2025-08-12 05:51 | XMS_ITS ---
Author Organization Yovanny Noel III, MD Address [address] [facility] [address] Care Team Providers Care Medication Care Manager Name Role Phone Dr. Yovanny Noel [...] Provider Diagnosis Yovanny Noel III, MD [address] [place] [address] [place] [address] 08/12/2025 Yovanny Noel Plan Of Treatment Medication Medication Name Sig Start Date Stop Date Notes Azithromycin 250 MG like directed Orally 2 Tablets on the first day, one tablet the rest of the days for 5 days 08/12/2025 Next Appt Details Provider Name:Yovanny Noel , 10/05/2025 10:30:00 AM, [address] [place] [address] DR AUGUSTINE Porsha, [place], [address], Progress Notes * Lynnette MCGILL TDOB: [birth year] (64 yo F)Acc No.[id number]:08/12/2025 Patient: Lynnette POLLOCK :1960 A ge:64 Y S ex:Female Address:[address] [place] [phone] * Refills Start Azithromycin Tablet, 250 MG, Orally, 6, like directed, 2 Tablets on the first day, one tablet the rest of the days, 5 days, Refills=0 * true * Date: Generated for Noreen fonseca/Joel/Dannyitting on: 1 11/09/2024 05:22 PM EST
--- OUTSIDE RECORDS SUMMARY | 2025-09-08 05:15 | XMS_ITS ---
Author Organization Yovanny Noel III, MD Address [address] [place] [address] Care Team Providers Care Workforce Specialist Name Role Phone Dr. Yovanny Noel III Primary Care Provider Allergies Allergen (clinical drug ingredient) Drug/Non Drug Allergy documented on EMR Reaction Allergy Type Onset Date Status No Known Drug Allergy Unknown Drug Allergy Active REASON FOR VISIT follow up Medications Medication SIG (Take, Route, Frequency, Duration) [...] Orally Onc e a day 01/27/2025 Active dexAMETHasone 2 MG 1 tablet Orally [...] Thre e times a day 07/28/2016 Active Cyclobenzaprine HCl 10 MG as directed Or ally three times a day 08/15/2022 Active K-Tab 10 MEQ 1 tablet with food Orally Once a day 02/15/2021 Active Combivent 18-103 MCG/ACT 2 puffs Inhalat ion Six times a day Active Advair Diskus 500-50 MCG/DOSE 1 puff Inhalation every 12 hrs Active Escitalopram Oxalate 20 MG 1 tablet Oral ly Once a day 12/29/2021 Active Pantoprazole Sodium 20 MG 1 tablet 1/2 t o 1 hour before morning meal Orally Once a day 10/27/2024 Active Metoprolol Tartrate 100 MG Take 1 tablet by mouth twice daily with food Active Meloxicam 15 MG Take 1 tablet by paras th once daily Active Azithromycin 250 MG like directed Orally 2 Tablets on the first day, one tablet the rest of the days for 5 days 08/12/2025 Active Flonase 50 MCG/ACT 1 spray in [...] smoker Vital Signs Temperature 97.3 degrees Fahrenheit 09/08/20 25 Blood pressure systolic 136 mm Hg 09/08/20 25 Blood pressure diastolic 78 mm Hg 025 Heart Rate 73 /min 09/08/2025 Height 63 in 09/08/2025 Weight 271 lbs 09/08/2025 BMI 48 kg/m2 09/08/2025 Encounters Encounter Location Date Provider Diagnosis Yovanny Noel III, MD [address] [place] [address] DR GARCIAKENZIEMELVI, YASMEEN [id number] 09/08/2025 Yovanny Noel Ulcer of nose J34.0 Assessments Encounter Date Diagnosis (ICD Code) Assessment Notes Treatment Notes Treatment Clinical Notes 09/08/2025 Ulcer of nose (ICD-10 - J34.0) Plan Of Treatment Medication Medication Name Sig Start Date Stop Date Notes Loratadine 10 MG Take 1 tablet by paras th once daily Simvastatin 40 MG Take 1 tablet by paras th in the evening Orally Once a day Clotrimazole 1 % 1 application Registration Specialist ally Twice a day 04/23/2025 Pregabalin 75 MG 1 capsule Orally Onc e a day 01/27/2025 dexAMETHasone 2 MG 1 tablet Orally teic e a day 01/27/2025 Senna Laxative 8.6 MG 1 tablet Orally tw ice a day 12/29/2024 Mupirocin 2 % 1 application Registration Specialist ally Twice a day for 30 days 09/08/2025 10/08/2025 Clopidogrel Bisulfate 75 MG TAKE 1 TABLE T BY MOUTH ONCE DAILY Orally Once a day Polyethylene Glycol 3350 17 GM 1 packet mixed with 8 ounces of fluid Orally Once a day Gabapentin 300 MG 1 capsule Orally thr ee times a day 01/23/2023 Furosemide 40 MG 1 tablet Orally Once a day 02/15/2021 Montelukast Sodium 10 MG 1 tablet in the evening Orally Once a day Ibuprofen 800 MG 1 tablet Orally Thre e times a day 07/28/2016 Cyclobenzaprine HCl 10 MG as directed Or ally three times a day 08/15/2022 K-Tab 10 MEQ 1 tablet with food O rally Once a day 02/15/2021 Combivent 18-103 MCG/ACT 2 puffs Inhalat ion Six times a day Advair Diskus 500-50 MCG/DOSE 1 puff Inh alation every 12 hrs Escitalopram Oxalate 20 MG 1 tablet Orally Once a day 12/01 Pantoprazole Sodium 20 MG 1 tablet 1/2 t o 1 hour before morning meal Orally Once a day 10/27/2024 Metoprolol Tartrate 100 MG Take 1 tablet by mouth twice daily with food Meloxicam 15 MG Take 1 tablet by paras th once daily Flonase 50 MCG/ACT 1 spray in each nost ril Nasally Once a day 09/28/2023 Esomeprazole Magnesium 40 MG Take 1 caps ule by mouth once daily Pending Test Test Name Order Date Routine Culture 09/08/2025 Next Appt Details Follow Up: As Scheduled, Alondra son: Annual Exam Provider Name:Yovanny Noel , 10/05/2025 10:30:00 AM, [address] [place] [address] DR, [facility] [address], [place], [address], Progress Notes * Lynnette SUMNER TDOB: [birth year] (64 yo F)Acc No.[id number]:09/08/2025 Progress Notes Patient: Lynnette POLLOCK Provider: Preston Noel MD :1960 A ge:64 Y S ex:Female Date:09/08/2025 Address:[address] [place], [place] [id number] Subjective: * Chief Complaints: * 1 . Follow up. * HPI: C OVID-19 Screening: breathing ok, bp high back is better, fuentes [place] for xmas. Questions H ave you had any new onset fever, chills, cough, congestion, sore throat, shortness of breath, muscle aches? N o * ROS: G eneral/Constitutional: pain o nly normal aches and pains. C hills d enies.?Fatigue a dmits. F ever d enies. E NT: Decreased hearing d enies. R espiratory: Cough d enies. C ardiovascular: Chest pain with exertion d enies. D yspnea on exertion?denies. S hortness of breath d enies. G astrointestinal: Constipation d enies. D ecreased [...] Depressed mood d enies. * Medical History: T hyroid nodule, Right knee fracture, Obesity, Hypertension, Asthma, Back pain, Hyperlipidemia, Atypical chest pain, Last mammogram 11/08/2012, Sleep apnea, Bulging disc, Narrowing in the spine, The patient has a history of asthma.. * Surgical History: h ysterectomy for bleeding , Cardiac Catheterization 10/28/2020, Sleeve Gastrectomy [facility] 09/14/21, No history . * Hospitalization/Major Diagno stic Procedure: r e: Hypertension 07/2018, CVA 07/2020, No history . * Family History: F ather: 70 yrs, [...] is single and working at a local [employer]. She has four children, 2 of each, Emir, Fuentes, Benson, Marie. She was born in [place]. * Medications: T aking Flonase 50 MCG/ACT Suspension 1 spray in each nostril Nasally Once a day , Taking Metoprolol Tartrate 100 MG Tablet Take 1 tablet by mouth twice daily with food , Taking Pantoprazole Sodium 20 MG Tablet Delayed Release 1 tablet 1/2 to 1 hour before morning meal Orally Once a day , Taking Escitalopram Oxalate [...] evening Orally Once a day , Taking Furosemide 40 MG Tablet 1 tablet Orally Once a day , Taking K-Tab 10 MEQ Tablet Extended Release 1 tablet with food Orally Once a day , Taking Cyclobenzaprine HCl 10 MG Tablet as directed Orally three times a day , Taking Gabapentin 300 MG Capsule 1 capsule Orally three times a day , Taking Polyethylene Glycol 3350 17 GM Packet 1 packet mixed with 8 ounces of fluid Orally Once a day , Taking Clopidogrel Bisulfate 75 MG Tablet TAKE 1 TABLET BY MOUTH ONCE DAILY Orally Once a day , Taking Senna Laxative 8.6 MG Tablet 1 tablet Orally twice a day , Taking dexAMETHasone 2 MG Tablet 1 tablet Orally teice a day , Taking Pregabalin 75 MG Capsule 1 capsule Orally Once a day , Taking Clotrimazole 1 % Cream 1 application Externally Twice a day , Taking Simvastatin 40 MG Tablet Take 1 tablet by mouth in the evening Orally Once a day , Taking Loratadine 10 MG Tablet Take 1 tablet by mouth once daily , Taking Azithromycin 250 MG Tablet like directed Orally 2 Tablets on the first day, one tablet the rest of the days , Taking Esomeprazole Magnesium 40 MG Capsule Delayed Release Take 1 capsule by mouth once daily , Taking Meloxicam 15 MG Tablet Take 1 tablet by mouth once daily , Medication List reviewed and reconciled with the patient * Allergies: N o Known Drug Allergy. Objective: * Vitals: H t: 63, Wt: 271, BMI:48, BP: 136/78, HR: 73, Temp: 97.3, Ht-cm: 160.02, Wt-k.92. * Examination: G eneral Examination: GENERAL APPEARANCE: p leasant, well nourished, well developed, in no acute distress, calm and relaxed. HEAD: a traumatic, normocephalic. EYES: e tony, [...] LUNGS: c lear to auscultation . BREASTS: no masses palpable bilaterally. ABDOMEN: b [...] a lert, oriented. Assessment: * Assessment: 1. U lcer of [facility] - J34.0 Plan: * Treatment: 2. O thers Continue Meloxicam Tablet, 15 MG, Take 1 tablet by mouth once daily; C ontinue Esomeprazole Magnesium Capsule Delayed Release, 40 MG, Take 1 capsule by mouth once daily; C ontinue Flonase Suspension, 50 MCG/ACT, 1 spray in each nostril, Nasally, Once a day; C ontinue Metoprolol Tartrate Tablet, 100 MG, Take 1 tablet by mouth twice daily with food; C ontinue Pantoprazole Sodium Tablet Delayed Release, 20 MG, 1 tablet 1/2 to 1 hour before morning meal, Orally, Once a day; C ontinue Escitalopram Oxalate [...] evening, Orally, Once a day; C ontinue Furosemide Tablet, 40 MG, 1 tablet, Orally, Once a day; C ontinue K-Tab Tablet Extended Release, 10 MEQ, 1 tablet with food, Orally, Once a day; C ontinue Cyclobenzaprine HCl Tablet, 10 MG, as directed, Orally, three times a day; C ontinue Gabapentin Capsule, 300 MG, 1 capsule, Orally, three times a day; C ontinue Polyethylene Glycol 3350 Packet, 17 GM, 1 packet mixed with 8 ounces of fluid, Orally, Once a day; C ontinue Clopidogrel Bisulfate Tablet, 75 MG, TAKE 1 TABLET BY MOUTH ONCE DAILY, Orally, Once a day; C ontinue Senna Laxative Tablet, 8.6 MG, 1 tablet, Orally, twice a day; C ontinue dexAMETHasone Tablet, 2 MG, 1 tablet, Orally, teice a day; C ontinue Pregabalin Capsule, 75 MG, 1 capsule, Orally, Once a day; C ontinue Clotrimazole Cream, 1 %, 1 application, Externally, Twice a day; C ontinue Simvastatin Tablet, 40 MG, Take 1 tablet by mouth in the evening, Orally, Once a day; C ontinue Loratadine Tablet, 10 MG, Take 1 tablet by mouth once daily; S tart Mupirocin Ointment, 2 %, 1 application, Externally, Twice a day, 30 days, 15 Gram. * Preventive Medicine: Counseling: C are goal [...] done: Medical or Other reason not done * Follow Up: A s Scheduled (Reason: Annual Exam) * Images: * The named appointment provid er may or may not be the originator of this progress note, and it is not deemed complete until electronically signed by the appointment provider. Sign off status: Pending * Provider: Preston Noel MD Date: 11/09/2024 Generated for Noreen fonseca/Joel/Gustabo on: 11/09/2024 05:22 PM EST History and Physical Notes * HPI (History of Present Illness) Category Sub-Category Detail Notes COVID-19 Screening Questions Have you had any new onset fever, chills, cough, congestion, sore throat, shortness of breath, muscle aches?: No Examination Category Sub-Category Detail Notes General Examination GENERAL APPEARANCE: pleasant , well nourished, well developed, in no acute distress, calm and relaxed HEAD: atraumatic, normocep halic EYES: eomi, perrla, [...]
--- OUTSIDE RECORDS SUMMARY | 2025-09-08 09:15 | XMS_ITS | Encounter Summary ---
Author Organization [facility] Address [address] [place] [address] Care Team Providers Care Associate Director Of Sales Name Role Phone Yovanny Noel MD Primary Care Provider [phone] Reason for Visit * Reason Comments Follow-up 3 month Encounter Details Date Type Department Care Team ([facility] st Contact Info) Description 09/08/2025 9:15 AM EST Office Visit Bariatric Surgery - [place] [address] [facility] [address] [place] [address] Julian Hubbard MD [address] [place] [phone] DEMI (obstructive sleep apnea) (Primary Dx); Prediabetes; Class 3 severe obesity due to excess calories with body mass index (BMI) of 45.0 to 49.9 in adult, unspecified whether serious comorbidity present (CMS/HCC V24, CMS/HCC V28) Social History Tobacco Use Types Packs/Day Years Used Date Smoking Tobacco: Former Smokeless Tobacco: Never Alcohol Use Standard Drinks/Week Comments No 0 (1 standard drink = 0.6 oz pur e alcohol) Comments No Sex and Gender Information Value Date Recorded Sex Assigned at Female 10/06/2024 11:02 AM EST Legal Sex Female 11:33 AM EST Gender Identity Female 10/06/2024 11:02 AM EST Sexual Orientation Not on file documented as of this encounter Last Filed Vital Signs Vital Sign Reading Time Taken Comments Blood Pressure 189/99 09/08/2025 9:03 AM EST Pulse 74 09/08/2025 9:03 AM EST Temperature 36.6 C (97.8 F) 09/08/2025 9:03 AM EST Respiratory Rate - - Oxygen Saturation - - Inhaled Oxygen Concentration - - Weight 123 kg (271 lb) 09/08/2025 9:03 AM EST Height 165.1 cm (5' 5 ) 09/08/2025 9:03 AM EST Body Mass Index 45.1 09/08/2025 9:03 AM EST documented in this encounter Progress Notes * Julian Hubbard MD - 09/08/2025 9:15 AM EST Ms. Mcgill is a 64 y.o. year old female who presents for surgical follow up regarding obesity. HPI: Ms. Mcgill Had lost 26 lbs since November 2023. She has been using bupropion/naltrexone combination. Regained 5 lbs since November of this year. BMI is 45.10. The patient is status post sleeve gastrectomy 2018. ROS: GENERAL: No malaise, significant unintentional weight [...] Patient Active Problem List Diagnosis Date Noted Chronic rhinitis 12/31/2024 Posterior rhinorrhea 12/31/2024 Allergic rhinitis 11/12/2024 Atypical facial pain 11/04/2024 Chronic sinusitis 09/19/2024 Cerebrovascular accident (CVA) ([facility] V24, CMS/[facility] V28) 04/17/2022 Chronic pain 04/17/2022 Pain in joint involving pelvic region and thigh 04/17/2022 Muscle weakness 04/17/2022 COVID-19 04/17/2022 Radial styloid tenosynovitis (de quervain) 04/17/2022 Reactive depression (situational) 04/17/2022 Chest pain 04/17/2022 Eating disorder, unspecified 08/09/2021 History of cerebrovascular accident (CVA) with residual deficit 08/09/2021 Allergic rhinitis due to pollen 06/16/2021 Left ventricular hypertrophy 05/21/2019 Pulmonary nodules 05/21/2019 DEMI (obstructive sleep apnea) 02/07/2018 Asthma 12/04/2017 Hypertension 12/04/2017 Hyperlipidemia 12/04/2017 Lumbar radiculopathy 12/04/2017 Nontoxic uninodular goiter 12/04/2017 Class 3 severe obesity with body mass index (BMI) of 45.0 to 49.9 in adult ([facility] V24, [facility] V28) 12/04/2017 PAST SURGICAL HISTORY: Surgical History[1] SOCIAL HISTORY: Social History Tobacco Use Smoking status: Former Smokeless tobacco: Never Substance Use Topics Alcohol use: No FAMILY HISTORY: Family History[2] Family Status Relation Name Status Mother Father Son Alive Uncle Alive maternal Mat Aunt Alive No partnership data on file MEDICATIONS: There are no discontinued medications. ACTIVE MEDICATIONS: Medications Taking[3] ALLERGIES: Current Allergies[4] PHYSICAL EXAM: Visit Vitals BP (!) 189/99 Pulse 74 Temp 36.6 ??C (97.8 ??F) (Temporal) Ht 1.651 m (65 ) Wt 123 kg (271 lb) BMI 45.10 kg/m?? OB Status Postmenopausal Smoking Status Former BSA 2.25 m?? APPEARANCE: Alert and oriented and in no acute distress EYES: Conjunctiva normal and sclera normal and anicteric. NECK: Neck supple with no adenopathy. HEART: No JVD. LUNG: No retractions. LYMPH NODES: No gross cervical or clavicular lymphadenopathy. ABDOMEN: non-distended, EXTREMITIES: Extremities well perfused without clubbing, cyanosis, or edema. SKIN: Skin color and texture normal. No rashes. NEUROLOGIC: Alert and oriented ??3. No motor deficits in the extremities. LABS/IMAGING: ASSESSMENT: 1. DEMI (obstructive sleep apnea) 2. Prediabetes 3. Class 3 severe obesity due to excess calories with body mass index (BMI) of 45.0 to 49.9 in adult, unspecified whether serious comorbidity present ([facility] V24, [facility] V28) PLAN: 1. I will stop bupropion because of the elevated blood pressure. 2. Will check A1C to determine if the patient is prediabetic. 3. The patient is probably candidate to the use of tirzepatide, especially if she is diabetic. The patient has obstructive sleep apnea. Study have shown that the medication is of benefit for obstructive sleep apnea. The patient has been approved by the FDA for the treatment of obstructive sleep apnea. [1] Past Surgical History: Procedure Laterality Date COLONOSCOPY 06/2023 10 yr recall HYSTERECTOMY PROCEDURE: HISTORICAL HYSTERECTOMY KNEE SURGERY Left PROCEDURE: HISTORICAL KNEE SURGERY SLEEVE GASTROPLASTY 2020 STEREOTACTIC CORE BIOPSY Right [2] Family History Problem Relation Name Age of Onset Breast cancer Mother depression, HTN Kidney failure Father HTN, ETOH, Diabetes Son Diabetes Uncle Breast cancer Mother's Sister [3] No outpatient medications have been marked as taking for the 09/08/25 encounter (Office Visit) with Julian Hubbard MD. [4] Allergies Allergen Reactions Tomato Watermelon documented in this encounter Plan of Treatment Upcoming Encounters Date Type Department Care Team (Late st Contact Info) Description 10/28/2025 9:30 AM EST Office Visit Gastroenterology - [address] [facility] [address] [facility] [address] [place] [phone] Amee Dean PA [address] [facility] [address] [place] [address] 03/25/2026 11:15 AM EDT Office Visit Bariatric Surgery - [place] [address] [facility] [address] [place] [phone] Julian Hubbard MD [address] [place] [phone] Pending Results Name Type Priority Associated Diagnoses Date /Time Hemoglobin A1c Lab Routine Prediabetes 09/08/2025 9:18 AM EST Scheduled Orders Name Type Priority Associated Diagnoses Orde r Schedule Hemoglobin A1c Lab Routine Prediabetes 1 Occurrences starting 09/08/2025 until 09/08/2026 documented as of this encounter Visit Diagnoses Diagnosis DEMI (obstructive sleep apnea)- Primary Obstructive sleep apnea (adult) (pediatric) Prediabetes Other abnormal glucose Class 3 severe obesity due to excess calories with body mass index (BMI) of 45.0 to 49.9 in adult, unspecified whether serious comorbidity present (CMS/[facility] V24, CMS/[facility] V28) documented in this encounter Care Teams Associate Director Of Sales Relationship Specialty [place] [address] [place] [id number] PCP - General Oncology 07/25/24 documented as of this encounter
--- OUTSIDE RECORDS SUMMARY | 2025-09-08 09:30 | XMS_ITS | Encounter Summary ---
Author Organization [facility] Address [address] [place] [address] Care Team Providers Care Azure Developer Name Role Phone Yovanny Noel MD Primary Care Provider [phone] Encounter Details Date Type Department Care Team (Late st Contact Info) Description 09/08/2025 9:30 AM EST Lab Draw Station - [address] [facility] [address] [facility] [address] [place] [address] Chronic constipation; Rectal bleeding; Prediabetes Social History Tobacco Use Types Packs/Day Years [...] on file documented as of this encounter Plan of Treatment Upcoming Encounters Date Type Department Care Team (Late st Contact Info) Description 10/28/2025 9:30 AM EST Office Visit Gastroenterology - 299 [facility] [address] [facility] [address] [place] [phone] Amee Dean PA [address] [facility] [address] [facility] [address] [place] [address] 03/25/2026 11:15 AM EDT Office Visit Bariatric Surgery - [place] [address] [facility] [address] [place] [phone] Julian Hubbard MD [address] [place] [phone] Pending Results Name Type Priority Associated Diagnoses Date /Time Hemoglobin A1c Lab Routine Prediabetes 09/08/2025 9:18 AM EST documented as of this encounter Procedures Procedure Name Priority Date/Time Associated Diagnosis Comments CBC WITH AUTO DIFFERENTIAL Routine 09/08/2025 9:18 AM EST Chronic constipation Rectal bleeding CBC AND DIFFERENTIAL Routine 09/08/2025 9:18 AM EST Chronic constipation Rectal bleeding documented in this encounter Results * (ABNORMAL) CBC auto differential (09/08/2025 9:18 AM EST) WBC 4.9 4.8 - 10.8 K/mcL LAB HEMETOLOGY METHOD 09/08/2025 10:24 AM [facility] RBC 3.90 3.80 - 4.80 M/mcL LAB HEMETOLOGY METHOD 09/08/2025 10:24 AM [facility] Hemoglobin 10.4(L) 11.5 - 16.0 g/dL LAB HEMETOLOGY METHOD 09/08/2025 10:24 AM [facility] Hematocrit 33.9(L) 35.0 - 47.0 % LAB HEMETOLOGY METHOD 09/08/2025 10:24 AM [facility] MCV 86.0 79.0 - 98.0 FL LAB HEMETOLOGY METHOD 09/08/2025 10:24 AM [facility] MCH 26.4(L) 27.0 - 32.0 pcg LAB HEMETOLOGY METHOD 09/08/2025 10:24 AM [facility] MCHC 30.7(L) 32.0 - 37.0 g/dL LAB HEMETOLOGY METHOD 09/08/2025 10:24 AM [facility] RDW 12.5 11.0 - 15.0 % LAB HEMETOLOGY METHOD 09/08/2025 10:24 AM [facility] Platelets 258 130 - 400 K/mcL LAB HEMETOLOGY METHOD 09/08/2025 10:24 AM [facility] MPV 11.1(H) 7.0 - 11.0 FL LAB HEMETOLOGY METHOD 09/08/2025 10:24 AM [facility] NRBC 0.0 <1.0 % LAB HEMETOLOGY METHOD 09/08/2025 10:24 AM [facility] NRBC Absolute 0.00 <0.10 K/mcL LAB HEMETOLOGY METHOD 09/08/2025 10:24 AM [facility] Neutrophils Relative 43.1 % LAB HEMETOLOGY METHOD 09/08/2025 10:24 AM [facility] Lymphocytes Relative 42.4 % LAB HEMETOLOGY METHOD 09/08/2025 10:24 AM [facility] Monocytes Relative 9.4 % LAB HEMETOLOGY METHOD 09/08/2025 10:24 AM [facility] Eosinophils Relative 3.9 % LAB HEMETOLOGY METHOD 09/08/2025 10:24 AM [facility] Basophils Relative 1.2 % LAB HEMETOLOGY METHOD 09/08/2025 10:24 AM [facility] Immature Granulocytes Relative 0.0 % LAB HEMETOLOGY METHOD 09/08/2025 10:24 AM [facility] Neutrophils Absolute 2.10 1.50 - 7.00 K/mcL LAB HEMETOLOGY METHOD 09/08/2025 10:24 AM [facility] Lymphocytes Absolute 2.07 1.00 - 5.00 K/mcL LAB HEMETOLOGY METHOD 09/08/2025 10:24 AM [facility] Monocytes Absolute 0.46 0.20 - 1.00 K/mcL LAB HEMETOLOGY METHOD 09/08/2025 10:24 AM EST [facility] Eosinophils Absolute 0.19 0.00 - 0.50 K/mcL LAB HEMETOLOGY METHOD 09/08/2025 10:24 AM EST [facility] Basophils Absolute 0.06 0.00 - 0.20 K/mcL LAB HEMETOLOGY METHOD 09/08/2025 10:24 AM EST [facility] Immature Granulocytes Absolute 0.00 0.00 - 0.03 K/mcL LAB HEMETOLOGY METHOD 09/08/2025 10:24 AM EST [facility] Blood Venous blood specimen / Unknown Venipuncture / Unknown 09/08/2025 9:18 AM EST 09/08/2025 9:18 AM EST us Monty Phipps MD LAB BLOOD ORDERABLES Final Result [facility] [address] [place] [address], documented in this encounter Visit Diagnoses Diagnosis Chronic constipation Unspecified constipation Rectal bleeding Hemorrhage of rectum and anus Prediabetes Other abnormal glucose documented in this encounter Care Teams Azure Developer Relationship Specialty Start Date End Date Yovanny Noel MD [address] [place] [id number] PCP - General Oncology 07/25/24 documented as of this encounter
--- OUTSIDE RECORDS SUMMARY | 2025-09-08 17:20 | XMS_ITS | Encounter Summary ---
Author Organization [facility] Prior to 08/01/2024 Address [address] [place] [address] Care Team Providers Care Naturopathic Oncology Provider Name Role Phone Yovanny Noel MD Primary Care Provider Sharon meredith Reason for Visit * Reason Onset Date Comments Faxed Refill 01/23/2020 Encounter Details Date Type Department Care Team Description 01/23/2020 Refill Pulmonology - [place] [address] [phone] Marielena Mckeon, SHANK TURNER [address] [phone] Faxed Refill Social History Tobacco Use Types Packs/Day Years Used Date Smoking Tobacco: Former Smokeless Tobacco: Never Alcohol Use Standard Drinks/Week Comments No 0 (1 standard drink = 0.6 oz pur e alcohol) Sex Assigned at Date Recorded Not on file documented as of this encounter Miscellaneous Notes * Telephone Encounter - Lamar Svetlana - 01/23/2020 2:28 PM EDT Patient would like script to be: E-PRESCRIBED/FAXED TO PHARMACY When was the patients last office visit in Adult Medicine?: 05/21/2019 Najma Calvillo When was the last time the patient saw their PCP? Same as above Does patient have an upcoming appointment? Yes 01/28/2020 (THE MEDICATION IS NOT ON THE MED LIST AND IS IDENTIFIED BELOW): {MED LIST:44895) Med name: Montelukast Dosage: 10 MG tab # of tablets: 30 Local pharmacy with request for 30 -day supply Instructions: Take 1 tablet by mouth once daily at bedtime Did you check the pharmacy information above?: YES Patients current insurance carrier: Payor: [employer] FFS / Plan: [facility] / Product Type: MEDICAID RISK documented in this encounter Plan of Treatment Not on file documented as of this encounter Visit Diagnoses Not on filedocumented in this encounter Care Teams Naturopathic Oncology Provider Relationship Specialty Start Date End Date Yovanny Noel MD PCP - General 05/04/08 documented as of this encounter
--- OUTSIDE RECORDS SUMMARY | 2025-09-08 17:20 | XMS_ITS | Encounter Summary ---
Author Organization [facility] Prior to 08/01/2024 Address [address] [place] [address] Care Team Providers Care Pocket And Pulley Machine Operator Name Role Phone Yovanny Noel MD Primary Care Provider Sharon meredith Encounter Details Date Type Department Care Team Description 05/01/2019 Orders Only Medical Records [address] [place] [id number] Josh Lee MD Social History Tobacco Use Types Packs/Day Years Used Date Smoking Tobacco: Former Smokeless Tobacco: Never Alcohol Use Standard Drinks/Week Comments No 0 (1 standard drink = 0.6 oz pur e alcohol) Sex Assigned at Date Recorded Not on file documented as of this encounter Plan of Treatment Not on file documented as of this encounter Procedures Procedure Name Priority Date/Time Associated Diagnosis Comments OUTSIDE SLEEP STUDY Routine 04/30/2019 documented in this encounter Results * OUTSIDE SLEEP STUDY (04/30/2019) Josh Lee MD PULMONOLOGY documented in this encounter Visit Diagnoses Not on filedocumented in this encounter Care Teams Pocket And Pulley Machine Operator Relationship Specialty Start Date End Date Yovanny Noel MD PCP - General 05/04/08 documented as of this encounter
--- OUTSIDE RECORDS SUMMARY | 2025-09-08 17:21 | XMS_ITS | Encounter Summary ---
Author Organization [facility] Prior to 08/01/2024 Address [address] [place] [address] Care Team Providers Care Information Services Consultant Name Role Phone Yovanny Noel MD Primary Care Provider Sharon meredith Encounter Details Date Type Department Care Team Description 09/21/2022 Jinrikisha Driver Report Medical Records [address] [place] [address] Center[facility] [address] [place] [address] Social History Tobacco Use Types Packs/Day Years Used Date Smoking Tobacco: Former Smokeless Tobacco: Never Alcohol Use Standard Drinks/Week Comments No 0 (1 standard drink = 0.6 oz pur e alcohol) Sex Assigned at Date Recorded Not on file COVID-19 Exposure Response Date Recorded In the last 10 days, have yo u been in contact with someone who was confirmed or suspected to have Coronavirus/COVID-19? No / Unsure 09/13/2022 10:27 AM EST documented as of this encounter Plan of Treatment Not on file documented as of this encounter Visit Diagnoses Not on filedocumented in this encounter Care Teams Information Services Consultant Relationship Specialty Start Date End Date Yovanny Noel MD PCP - General 05/04/08 documented as of this encounter
--- OUTSIDE RECORDS SUMMARY | 2025-09-08 17:21 | XMS_ITS | Encounter Summary ---
Author Organization [facility] Prior to 08/01/2024 Address [address] [place] [address] Care Team Providers Care Flight Surgeon Name Role Phone Yovanny Noel MD Primary Care Provider Sharon meredith Encounter Details Date Type Department Care Team Description 02/07/2018 Telephone Pulmonology - [address] [place] [address] Josh Lee MD Social History Tobacco Use Types Packs/Day Years Used Date Smoking Tobacco: Former Sex Assigned at Date Recorded Not on file documented as of this encounter Plan of Treatment Not on file documented as of this encounter Visit Diagnoses Not on filedocumented in this encounter Care Teams Flight Surgeon Relationship Specialty Start Date End Date Yovanny Noel MD PCP - General 05/04/08 documented as of this encounter
--- OUTSIDE RECORDS SUMMARY | 2025-09-08 17:21 | XMS_ITS | Clinical Summary ---
Author Organization [facility] Address [address] [place] [address] Phone Care Team Providers Care Import/Export Analyst Name Role Phone Yovanny Noel MD Primary Care Provider [phone] Allergies Active Allergy Reactions Criticality Noted Date [...] DAILY. STOP POTASSIUM SUPPLEMENT. 1 Active Tiotropium [place] Monohydrate 1.25 MCG/ACT aerosol solution Inhale 1 [...] Active Problems Problem Noted Date Diagnosed Date Pain of joint of pelvis and/or upper leg 022 Cerebrovascular accident 04/17/2022 Chest pain 04/17/2022 Chronic [...] Obstructive sleep apnea syndrome 02/07/2018 Overview (03/26/2021): [facility] Home Sleep Apnea Test: Date 04/30/2019; [...] 2019 home sleep apnea test. Asthma 12/04/2017 Body [...] this topic Insurance Medicare Medicaid [place] Medicaid [place] Medicare Care Teams Import/Export Analyst Relationship Specialty Start Date End Date Yovanny Noel MD [address] [place] [address] , [address] [place] [address] PCP - General Medical Oncology 01/18/24
--- OUTSIDE RECORDS SUMMARY | 2025-09-08 17:21 | XMS_ITS | Encounter Summary ---
Author Organization [facility] Prior to 08/01/2024 Address [address] [place] [address] Care Team Providers Care Mold Shop Supervisor Name Role Phone Yovanny Noel MD Primary Care Provider Sharon meredith Encounter Details Date Type Department Care Team Description 10/25/2017 Transfer Records Medical Records [address] [place] [id number] Abstract, Provider Social History Tobacco Use Types Packs/Day Years Used Date Smoking Tobacco: Never Assessed Sex Assigned at Date Recorded Not on file documented as of this encounter Plan of Treatment Not on file documented as of this encounter Visit Diagnoses Not on filedocumented in this encounter Care Teams Mold Shop Supervisor Relationship Specialty Start Date End Date Yovanny Noel MD PCP - General 05/04/08 documented as of this encounter
--- OUTSIDE RECORDS SUMMARY | 2025-09-08 17:22 | XMS_ITS | Encounter Summary ---
Author Organization [facility] Prior to 08/01/2024 Address [address] [place] [address] Care Team Providers Care Chiller Hand Name Role Phone Yovanny Noel MD Primary Care Provider Sharon meredith Encounter Details Date Type Department Care Team Description 08/20/2018 Supervisor [place] Report Medical Records [address] [place] [address] Won Parker [place] [address] [place] [address] Social History Tobacco Use Types Packs/Day Years [...] on filedocumented in this encounter Care Teams Chiller Hand Relationship Specialty Start Date End Date Yovnany Noel MD PCP - General 05/04/08 documented as of this encounter
--- OUTSIDE RECORDS SUMMARY | 2025-09-08 17:22 | XMS_ITS | Encounter Summary ---
Author Organization [facility] [employer] [facility] [facility] Prior to 08/01/2024 Address [address] [place] [address] Care Team Providers Care Rubber Goods Inspector Name Role Phone Yovanny Noel MD Primary Care Provider Sharon meredith Encounter Details Date Type Department Care Team Description 05/06/2012 Machine Stacker Report Medical Records [address] [place] [address] Yovanny Noel MD Social History Tobacco Use Types Packs/Day Years Used Date Smoking Tobacco: Never Assessed Sex Assigned at Date Recorded Not on file documented as of this encounter Plan of Treatment Not on file documented as of this encounter Visit Diagnoses Not on filedocumented in this encounter Care Teams Rubber Goods Inspector Relationship Specialty Start Date End Date Yovanny Noel MD PCP - General 05/04/08 documented as of this encounter
--- OUTSIDE RECORDS SUMMARY | 2025-09-08 17:22 | XMS_ITS | Encounter Summary ---
Author Organization [facility] Prior to 08/01/2024 Address [address] [place] [address] Care Team Providers Care Powder Hand Name Role Phone Yovanny Noel MD Primary Care Provider Sharon meredith Encounter Details Date Type Department Care Team Description 01/22/2023 SCAN Medical Records [address] [place] [id number] Abstract, Provider Social History Tobacco Use Types [...] was confirmed or suspected to have Coronavirus/COVID-19? Unable to assess 01/16/2023 10:12 AM EDT documented as of this encounter Plan of Treatment Not on file documented as of this encounter Visit Diagnoses Not on filedocumented in this encounter Care Teams Powder Hand Relationship Specialty Start Date End Date Yovanny Noel MD PCP - General 05/04/08 documented as of this encounter
--- OUTSIDE RECORDS SUMMARY | 2025-09-08 17:22 | XMS_ITS | Data Portability ---
Author Organization [place] 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 Reviewed with the patient that the scan showed no evidence of sinus disease. I am glad to hear that her facial pain is improving. She will follow up for allergy testing. Not available 11/04/2024 15:35:35 Plan of Treatment Reminders Order Date Submit Date Provider Last Modified By Organization Details Last Modified Time Details Appointments None recorded. Lab None recorded. Referral None recorded. Procedures allergy testing, skin prick (PROC) 2023 024 [email or web address] Not available 5 11:20:14 intradermal allergy skin testing (PROC) 2023 024 [email or web address] Not available 5 11:20:14 pulmonary function test procedure (PROC) 2023 024 skorzec Not available 5 11:20:14 pulse oximetry (PROC) 2023 024 [email or web address] Not available 5 11:20:14 Surgeries None recorded. Imaging CT, maxillofaci al, w/o contrast 2023 024 [email or web address] [facility] [place], [address] [place] [address], [facility] [address], [place], [address], 15:43:52 Medication Orders ipratropium bromide 21 mcg (0.03 %) nasal spray [address] [facility] [address], [address] [facility], [place], [address], 08:50:35 Patient TargetsNo targets recorded. Patient Instructions Encounter Date Encounter Id Patient Instructions Last Modified By Organization Details Last Modified Time 11/12/2024 [id number] Nursing Documentation for Allergy Testing: Ordering Provider [...] last month: No Proceed with PFT Yes DrKeyshawn approval needed: No Nursing Notes: Pt tolerated [...] SHRUTI Padilla Not available 11/12/2024 10:43:53 12/31/2024 [id number] Patient appears to have nonallergic/vasomo tor rhinitis [...] >100. 00 Very High Not Available [facility] ([facility]) [address] [place], [address], 11/14/2024 12:20:42 11/12/19 25 11/14/2024 ALLER GENS, ZONE 1 O320-FvV D pteronyssinu s <0.10 kU/L class 0 Not Available [facility] ([facility]) [address] [place], [address], 11/14/2024 12:20:42 11/12/19 25 11/14/2024 ALLER GENS, ZONE 1 D938-QgQ D farinae <0.10 kU/L class 0 Not Available [facility] ([facility]) [address] [place], [address], 11/14/2024 12:20:42 11/12/19 25 11/14/2024 ALLER GENS, ZONE 1 H098-AvC CAT dander <0.10 kU/L class 0 Not Available [facility] ([facility]) [address] [place], [address], 11/14/2024 12:20:42 11/12/19 25 11/14/2024 ALLER GENS, ZONE 1 J518-PiT dog dander <0.10 kU/L class 0 Not Available [facility] ([facility]) [address] [place], [address], 11/14/2024 12:20:42 11/12/19 25 11/14/2024 ALLER GENS, ZONE 1 t733-QpE bermuda grass <0.10 kU/L class 0 Not Available [facility] ([facility]) [address] [place], [address], 11/14/2024 12:20:42 11/12/19 25 11/14/2024 ALLER GENS, ZONE 1 n085-FpC bluegrass, tiffaniey 0.14 kU/L class 0/I abnormal Not Available [facility] ([facility]) [address] [place], [address], 11/14/2024 12:20:42 11/12/19 25 11/14/2024 ALLER GENS, ZONE 1 k195-RiW bahia grass <0.10 kU/L class 0 Not Available [facility] ([facility]) [address] [facility], [place], [address], 11/14/2024 12:20:42 11/12/19 25 11/14/2024 ALLER GENS, ZONE 1 E869-QaH cockroach, zambian <0.10 kU/L class 0 Not Available [facility] ([facility]) [address] [place], [address], 11/14/2024 12:20:42 11/12/19 25 11/14/2024 ALLER GENS, ZONE 1 L525-SiT penicillium chrysogen <0.10 kU/L class 0 Not Available [facility] ([facility]) [address] [place], [address], 11/14/2024 12:20:42 11/12/19 25 11/14/2024 ALLER GENS, ZONE 1 N452-WhW cladosporium herbarum <0.10 kU/L class 0 Not Available [facility] ([facility]) [address] [place], [address], 11/14/2024 12:20:42 11/12/19 25 11/14/2024 ALLER GENS, ZONE 1 H719-ArH aspergillus fumigatus <0.10 kU/L class 0 Not Available [facility] ([facility]) [address] [place], [address], 11/14/2024 12:20:42 11/12/19 25 11/14/2024 ALLER GENS, ZONE 1 J891-AuC mucor racemosus <0.10 kU/L class 0 Not Available [facility] ([facility]) [address] [place], [address], 11/14/2024 12:20:42 11/12/19 25 11/14/2024 ALLER GENS, ZONE 1 U498-UpT alternaria alternata <0.10 kU/L class 0 Not Available [facility] ([facility]) [address] [place], [address], 11/14/2024 12:20:42 11/12/19 25 11/14/2024 ALLER GENS, ZONE 1 N999-BfD stemphylium herbarum <0.10 kU/L class 0 Not Available [facility] ([facility]) [address] [place], [address], 11/14/2024 12:20:42 11/12/19 25 11/14/2024 ALLER GENS, ZONE 1 C208-IgX common silver birch 0.12 kU/L class 0/I abnormal Not Available [facility] ([facility]) [address] [place], [address], 11/14/2024 12:20:42 11/12/19 25 11/14/2024 ALLER GENS, ZONE 1 L979-BzT oak, white <0.10 kU/L class 0 Not Available [facility] ([facility]) [address] [place], [address], 11/14/2024 12:20:42 11/12/19 25 11/14/2024 ALLER GENS, ZONE 1 O951-QjH elm, zambian <0.10 kU/L class 0 Not Available [facility] ([facility]) [address] [place], [address], 11/14/2024 12:20:42 11/12/19 25 11/14/2024 ALLER GENS, ZONE 1 O499-FeL carmelita, white <0.10 kU/L class 0 Not Available [facility] ([facility]) [address] [facility], [place], [address], 11/14/2024 12:20:42 11/12/19 25 11/14/2024 ALLER GENS, ZONE 1 L834-QgU maple/box elder <0.10 kU/L class 0 Not Available [facility] ([facility]) [address] [facility], [place], [address], 11/14/2024 12:20:42 11/12/19 25 11/14/2024 ALLER GENS, ZONE 1 F594-CuO hazelnut tree <0.10 kU/L class 0 Not Available [facility] ([facility]) [address] [facility], [place], [address], 11/14/2024 12:20:42 11/12/19 25 11/14/2024 ALLER GENS, ZONE 1 A850-XzV hickory, white <0.10 kU/L class 0 Not Available [facility] ([facility]) [address] [facility], [place], [address], 11/14/2024 12:20:42 11/12/19 25 11/14/2024 ALLER GENS, ZONE 1 F898-YkX white mulberry <0.10 kU/L class 0 Not Available [facility] ([facility]) [address] [facility], [place], [address], 11/14/2024 12:20:42 11/12/19 25 11/14/2024 ALLER GENS, ZONE 1 Y519-UaM cedar, mountain <0.10 kU/L class 0 Not Available [facility] ([facility]) [address] [facility], [place], [address], 11/14/2024 12:20:42 11/12/19 25 11/14/2024 ALLER GENS, ZONE 1 M211-RbU ragweed, short 0.21 kU/L class 0/I abnormal Not Available [facility] ([facility]) [address] [facility], [place], [address], 11/14/2024 12:20:42 11/12/19 25 11/14/2024 ALLER GENS, ZONE 1 P681-HzT mugwort <0.10 kU/L class 0 Not Available [facility] ([facility]) [address] [place], [address], 11/14/2024 12:20:42 11/12/19 25 11/14/2024 ALLER GENS, ZONE 1 V411-XdX plantain, kuwaiti <0.10 kU/L class 0 Not Available [facility] ([facility]) [address] [place], [address], 11/14/2024 12:20:42 11/12/19 25 11/14/2024 ALLER GENS, ZONE 1 Q798-FlW pigweed, common <0.10 kU/L class 0 Not Available [facility] ([facility]) [address] [facility], [place], [address], 11/14/2024 12:20:42 11/12/19 25 11/14/2024 ALLER GENS, ZONE 1 R185-GhQ sheep sorrel <0.10 kU/L class 0 Not Available [facility]) [address] [place], [address], 11/14/2024 12:20:42 11/12/19 25 11/14/2024 ALLER GENS, ZONE 1 X632-QfR nettle <0.10 kU/L class 0 Not Available [facility]) [address] [place], [address], 11/14/2024 12:20:42 11/12/19 25 11/14/2024 IMMUN OGLOB ULIN E, TOTAL immunoglobul in E, total 2 IU/mL 6-495 below low normal Not Available [facility] ([facility]) [address] [facility], [place], [address], 11/14/2024 12:20:42 10/08/19 25 10/07/2024 CT, maxil lofac ial, w/o contr ast No observ ation record ed. [email or web address] [facility] [place] [address], [address], 10/09/2024 09:16:23 10/08/19 25 10/07/2024 CT, maxil lofac ial, w/o contr ast No observ ation record ed. [email or web address] [facility] [place] [address], [address], 10/09/2024 09:16:23 10/08/19 25 10/07/2024 CT, maxil lofac ial, w/o contr ast No observ ation record ed. BARCODE [facility] [place] [address], [address], 10/08/2024 16:03:22 11/12/19 25 mary metry testi ng* No observ ation record ed. [email or web address] Not Available 2024 18:02:42 Result Notes None recorded. Problems Name Problem SNOMED Code Status Onset Date Resolution Date Notes Provider Name and Address Organization Details Recorded Time Severe obesity 60439816487 104 Active 2020 Morbid (severe) obesity due to excess calories; Note: Date Diagnosed : 06/16/2021 11:31 AM (E66.01) Not Available [facility] 4 03:25:06 Obstructi ve sleep apnea syndrome 22622882 Active 2020 Obstructi ve sleep apnea (adult) (pediatri c); Note: Date Diagnosed : 06/16/2021 11:31 AM (G47.33) Not Available [facility] 4 03:25:07 Uncomplic ated asthma 857026072 Active 2020 Unspecifi ed asthma, uncomplic ated; Note: Date Diagnosed : 06/16/2021 11:31 AM (J45.909) Not Available [facility] 4 03:25:07 Allergic rhinitis caused by pollen 24080804 Active 2020 Allergic rhinitis due to pollen; Note: Date Diagnosed : 06/16/2021 11:31 AM (J30.1) Not Available [facility] 4 03:25:06 Chronic sinusitis 37640882 Active 2023 Lilliam marin [place] - [facility] 4 11:00:07 Atypical facial pain 66348439 Active 2024 Lilliam marin, YASMEEN - [facility] 5 15:35:35 Allergic rhinitis 73396498 Active 2024 [facility], [facility] [address] [facility],[place] [address], [place], [address] , [facility] - [facility] 5 09:19:15 Posterior rhinorrhe a 55443842 Active 2024 FER ZAVALA MD [address] [facility],[place] [address], [place], [address] , [facility] - [facility] [place] 5 08:49:08 Chronic rhinitis 18509180 Active 2024 FER ZAVALA MD [address] [facility],[place] [address], [place], [address] , [facility] - [facility] [place] 5 08:49:14 Problem Notes None recorded. Procedures Surgical History Date Name Laterality Status Provider Name and Address Organization Details Recorded Time 4 JMSNasal/Sinus Endoscopy completed Lilliam Velazquez [place] - [facility] [place] 09/19/2024 12:23:56 Imaging Results None recorded. Procedure [...] mg tablet 12/31 completed Medicati on ID: [id number] B rand Name: furosemi de Send Method: E-Prescr ibed Sub s Allowed: subs OK Medic ationGen ericName : furosemi de Not Available Not Available Not Available prednison e 10 mg tablet TAKE 6 TABLETS BY MOUTH ONCE DAILY FOR 3 DAYS, THEN 4 TABS DAILY FOR 3 DAYS, THEN 2 TABS DAILY FOR 3 DAYS, THEN 1 TAB DAILY FOR 3 DAYS active Not Available Not Available No t Available doxycycli ne hyclate 100 mg capsule [...] MOUTH ONCE DAILY WITH FOOD OR MILK active Not Available Not Available No t Available hydroxyzi ne pamoate 50 mg capsule [...] completed Not Available Not Available Not Available tramadol 50 mg tablet TAKE 1 TABLET BY MOUTH EVERY 6 HOURS NEEDED FOR SEVERE PAIN FOR UP TO 3 DAYS. MAX DAILY DOSE OF 200MG active Not Available Not Available No t [...] t Available dexametha sone 2 mg tablet TAKE 1 TABLET BY MOUTH TWICE DAILY FOR 14 DAYS active Not Available Not Available No t Available trazodone 150 mg tablet TAKE 2 [...] mg tablet 12/31 completed Medicati on ID: [id number] B rand Name: metoprol ol tartrate Send [...] mg capsule 11/12 completed Medicati on ID: [id number] B rand Name: gabapent in Send Method: [...] %) nasal spray active Medicati on ID: [id number] B rand Name: nessasti braeden Send Method: E-Prescr ibed Sub s [...] Available Not Available No t Available clotrimaz ole 1 % topical cream APPLY CREAM TOPICALL Y TO AFFECTED AREA TWICE DAILY active Not Available Not Available [...] mg tablet 12/31 completed Medicati on ID: [id number] B rand Name: spironol actone S end [...] Available escitalop jessica 10 mg tablet TAKE 1 TABLET BY MOUTH ONCE DAILY active Not Available Not Available No t Available escitalop jessica 20 mg tablet TAKE 1 TABLET BY MOUTH ONCE DAILY 12/31 completed Not Available Not Available Not Available Prilosec OTC 20 mg tablet,de layed release 12/31 completed Medicati on ID: [id number] B rand Name: Prilosec OTC Send Method: [...] Not Available Not Available No t Available peg 3350-elec trolytes 236 gram-22.7 4 gram-6.74 gram-5.86 gram solution USE DIRECTED BY MD active Not Available Not Available No t Available Vitamin D3 50 mcg (2,000 unit) capsule 12/31 completed Medicati on ID: [id number] B rand Name: Vitamin D3 Send Method: E-Prescr ibed Sub s Allowed: subs OK Medic ationGen ericName : Vitamin D3 Not Available Not Available Not Available Linzess 145 mcg capsule TAKE 1 CAPSULE BY MOUTH ONCE DAILY active Not Available Not Available No t Available Incruse Ellipta 62.5 mcg/actua tion powder for inhalatio n 12/31 completed Medicati on ID: [id number] B rand Name: Incruse Ellipta Send Method: E-Prescr ibed Sub s Allowed: subs OK Speci al Instruct ion: INHALE 1 PUFF BY MOUTH ONCE DAILY Me dication GenericN judith: Incruse Ellipta Not Available Not Available Not Available Breo Ellipta 200 mcg-25 mcg/dose powder for inhalatio n 12/31 completed Medicati on ID: [id number] B rand Name: Breo Ellipta Send Method: [...] Updated DateTime 11/04/2024 165.1 cm 45.8 kg/m2 552545.9 g Emily Ba [place] - [facility] 11/04/2024 14:55:31 Date Recorded Body height Body mass index (BMI) Body weight Oxygen saturation Heart rate Systolic And Diastolic Systolic And Diastolic Provider Name and Address Organization Details Last Updated DateTime 165.1 cm 45.8 kg/m2 694171. 9 g 98 % 76 /min 160/94 mm[Hg] 172/96 mm[Hg] ETELVINA LAN[place]STER, [facility] [address] [facility] [address], [place], [address], [place] - [facility] 5 10:14:58 Date Recorded Body height Body weight Provider Name and Address Organization Details Last Updated DateTime 12/31/2024 165.1 cm 987324.9 g Susan Crum [place] - [facility] 12/31/2024 08:32:27 Date Recorded Body weight Body mass index (BMI) Body height Provider Name and Address Organization Details Last Updated DateTime 09/19/2024 000465.27 g 46.4 kg/m2 165.1 cm Jessica Noé [place] - [facility] 09/19/2024 10:19:27 Social History Question Answer Notes LastModified by Organizat ion Details LastModified Time Tobacco Smoking Status Former Smoker ETELVINA MARTIN, [facility] [address] [facility],[address], [address], [facility] - [facility] 11/12/2024 09:17:45 When Did You Quit [...] Disorder N Anesthesia Complications N Heart Attack ([place]) N Other Skin Condition N Diabetes N [...] Diagnosis SNOMED-CT Code Diagnosis ICD10 Code Diagnosis IMO Codes Diagnosis Note [id number] FER ZAVALA MD [facility] [address] [place] [address] 09/19/2024 10:02:24 09/19/2024 11:03:03 Allergic rhinitis caused by pollen 23255730 J30.1 Chronic sinusitis 805571 00 J32.9 [id number] LILLIAM VELAZQUEZ PA-C [facility] [address] [address] 11/04/2024 14:44:00 11/04/2024 15:08:34 Allergic rhinitis caused by pollen 29414275 J30.1 Atypical facial pain [id number] [facility], [facility] [address] [place] [address] 11/12/2024 08:46:13 11/12/2024 10:45:34 Allergic rhinitis caused by pollen 88415101 J30.1 [id number] FER ZAVALA MD [facility] [address] [address] 12/31/2024 08:26:16 12/31/2024 08:52:00 Obstructive sleep apnea syndrome 83595392 G47.33 Posterior rhinorrhea 758 39600 R09.82 Chronic rhinitis 6853822 6 J31.0 Health Concerns Section Related Observation LastModified by Organization Detai ls LastModified Time None Recorded Concern Status LastModified by Organization Details LastModified Time None Recorded Advance Directives Directive None Recorded Payers Insurance Date Sequence Insurance Name Policy Number Policy Mei Covered Member ID Mei Member ID Guarantor Name 06/15/2025 1 [place] [employer] Lynnette Mcgill [id number] Lynnette Mcgill 01/07/2025 2 [place] [employer] Lynnette Mcgill [id number] Lynnette Mcgill Notes Date Note Type Note Provider Name and Address Organization Details Recorded Time 09/19/2024 text/html ROS as noted in the HPI 63 year old female presents reporting left [...] upper molars. FER RIVERA MD [address] [facility] [address], [place], [address], [facility] - [facility] 09/19/2024 12:45:42 11/04/2024 text/html ROS as noted in the [facility] 63 year old female presents to review CT sinus which was performed at [facility] 10/07/24. She reports that her left maxillary pain is improving. She has allergy tested scheduled. SHRAVAN JUDD MD [address] [facility] [place],[address], [address], [facility] - [facility] 11/06/2024 08:24:49 11/12/2024 text/html Pt presents for allergy testing. Due to elevated bp due to holding her beta ghislaine and other 3 meds and having poor pfts Dr. Hernandez wanted pt to have RAST and to follow up with Dr. Rivera to figure out next steps ETELVINA LANCASTER, [facility] [address] [facility] [address],[place] [address] [place] [address], [address], [facility] 11/12/2024 10:45:27 12/31/2024 text/html Patient with [...] -6hours per night FER RIVERA MD [address] [facility] [address], [place], [address], [facility] 12/31/2024 08:51:29 OBGyn Episode No OBEpisode recorded.
--- OUTSIDE RECORDS SUMMARY | 2025-09-08 17:23 | XMS_ITS | Patient Health Record ---
Author Organization Yovanny Noel III, MD Address [address] [place] [address] Care Team Providers Care Synchro Assembler Name Role Phone Dr. Yovanny Noel III [...] No Complete Blood Count no Diff Reviewed date:12/27/2024 08:01:52 AM Interpretation: Performing Lab:[facility] [place], [address] [place] [phone] Notes/Report: White Blood Count 5.0 4.8-10.8 X10*3/uL [...] Panel Reviewed date:12/27/2024 08:01:52 AM Interpretation: Performing Lab:[facility] [place], [address] [place] [phone] Notes/Report: Sodium 141 135-145 mmol/L Potassium 3.8 [...] Sensitivity Reviewed date:12/27/2024 08:01:52 AM Interpretation: Performing Lab:[address] [address] Notes/Report: Troponin-I High Sensitivity < 2.7 <3.5-17.0 ng/L The Weiss high sensitivity Troponin-I results should be used in conjunction with other diagnostic information such as ECG, clinical observations and information, and patient symptoms to aid in the diagnosis of [place]. B Type Natriuretic Peptide Reviewed date:12/27/2024 08:01:52 AM Interpretation: Performing Lab:[facility] [place], [address] [place] [phone] Notes/Report: B Type Natriuretic Peptide 64 <100 pg/mL US arterial duplex LE LT Reviewed date:04/03/2025 07:16:33 PM Interpretation: Performing Lab: Notes/Report: [address] [address] Ultrasound Report Signed Patient: Lynnette Mcgill MR#: [id number] : 1960 Acct:[id number] Age/Sex: 64 / F ADM Date: 03/11/25 Loc: .US Attending Dr: Yovanny Noel MD Ordering Physician: Yovanny Noel MD Date of Service: 03/11/25 Procedure(s): US arterial duplex LE LT Accession Number(s): [id number] cc: Yovanny Noel MD; Franklin Eason MD [...] 09:05 AM EDT RP Dictated By: Brandon Yun MD Signed By: <Electronically signed by Brandon Wilcox MD in OV> 03/12/25904 DD/ TD/TT: 03/11/2539 Mental Retardation Nurse: [place] [id number] Ultrasound Report Signed Patient: Amy Mcgill MR#: [id number] : 1960 Acct:[id number] Age/Sex: 64 / F ADM Date: 03/11/25 Loc: HO.US Attending Dr: Yovanny Noel MD Ordering Physician: Yovanny Noel MD Date of Service: 03/11/25 Procedure(s): US arterial duplex LE LT Accession Number(s): [id number] cc: Yovanny Noel MD; Franklin Eason MD [...] color Doppler flow registered. . Anterior tibial onelia ry: 84 cm/s, phasicity: Triphasic. Dorsalis pedis arter y: 80 cm/s, phasicity: Triphasic. US/US arterial duplex LE LT IMPRESSION: Normal patency and waveforms of the interrogated vessels, left lower extremity. Electronically earline d by: Brandon Marx MD 03/12/2025 09:05 AM EDT Dictated By: Brandon Patricio MD Signed By: <Electronically signed by Brandon Wilcox MD in OV> 03/12/25904 DD/ 1 TD/TT: 03/11/25938 Mental Retardation Nurse: Basic Metabolic Panel (Not y et reviewed by provider) Interpretation: Performing Lab:[facility] [place], [address] [place] [phone] Notes/Report: Sodium 145 135-145 mmol/L Potassium 3.9 3.3-5.1 mmol/L Chloride 115 96-108 mmol/L Carbon Dioxide 21 22-29 mmol/L Anion Gap 13 12-20 Blood Urea Nitrogen 27 9-16 mg/dL Creatinine 1.16 0.5-1.4 mg/dL Estimated Glomerular Filt Rate 47 Chronic Kidney Disease: Estimated GFR < 60 mL/min/1.73m2 Severe Kidney Disease: Estimated GFR < 15 mL/min/1.73m2 Glucose Random 80 60-115 mg/dL Calcium 9.5 8.4-10.2 mg/dL Lipid Panel (Not yet reviewe d by provider) Interpretation: Performing Lab:[facility] [place], [address] [place] [phone] Notes/Report: Triglycerides 61 <150 mg/dL Desirable Triglyceride: less than 150 mg/dL Borderline High Triglyceride 150-199 mg/dL High Triglyceride: 200-499 mg/dL Very High Triglyceride: greater than or equal to 5OO mg/dL Cholesterol 212 <200 mg/dL Desirable Cholesterol: less than 200 mg/dL Borderline High Cholesterol: 200-239 mg/dL High Cholesterol: greater than 239 mg/dL LDL Cholesterol Calculated 144 <100 mg/dL Desirable LDL: less than 100 mg/dL Near Optimal/Above Optimal LDL: 110-129 mg/dL Borderline High LDL: 130-159 mg/dL High LDL: 160-189 mg/dL Very High LDL: greater than or equal to 190 mg/dL HDL Cholesterol 56 >40 mg/dL Desirable HDL: greater than 40 mg/dL Note: This HDL assay may give artificially low results in patients with liver disease. Gram stain (Not yet reviewe d by provider) Interpretation: Performing Lab:[facility] [place], [address] [place] [address] Notes/Report: LEFT NOSTRIL Gram stain Gram stain results: Gram stain No polys Gram stain 1+ epithelial cells Gram stain 1+ Gram-positive cocci Reason For Referral Reason increased pain down right leg even at rest Diagnosis 1 Lumbar radiculopathy (M54.16) Referral Organization Yovanny Noel III, MD Referring Provider First Name Yovanny Referring Provider Last Name Sadie Referring Provider [facility] Referred Provider Specialty Physical Med icine General Notes Leatha Wood CMA 10/08 10:42:43 AM >Patient to have MRI spine done at [facility] after that result comes in ref patient back to [facility] to discuss possible spinal cord stimulator insertion, Leatha Wood CMA 10/15/2024 02:34:17 PM >ref/demo/progress note and MRI report faxed to [facility] at regular fax number and fax # [phone] they will call patient to set up appt, Leatha Wood CMA 10/21/2024 09:59:28 AM > I called spoke to patient she stated she has appt at [facility] for 11/19/2024 Referral Priority Routine Referral Appointment Date 11/19/2024 Reason Evaluate and Treat Constipation not responding to anything Bowel movements once a week Diagnosis 1 Constipation (K59.00 ) Referral Organization Yovanny Noel III, MD Referring Provider First Name Yovanny Referring Provider Last Name Sadie Referring Provider [facility]ity [facility] Referred Provider LETICIA MARIO Referred Provider Specialty Gastroentero logy General Notes Marixa Zimmerman 01/05/2025 10:25:50 AM > Referral and progress note FaxedErasmo Amber 03/02/2025 01:47:13 PM > Office stated they did not receive the referral. Fax number confirmed and refaxedErasmo Amber 03/05/2025 03:53:54 PM >Spoke with Marixa at [facility] stated they have reached out to patient and left a message with no call back. Dr. Noel office reached out to patient and left a message to have the patient call their office to schedule an appointment, number was left on patient voicemailErasmo Mahajan Amber 03/05/2025 04:08:27 PM > spoke with patient and gave her the number to [facility]. Patient was asked to call the office back to make us aware of when the appointment is. Referral Priority Routine Referral Appointment Date 04/09/2025 Reason left leg pain Diagnosis 1 Pain of left lower e xtremity (M79.605) Referral Organization Yovanny Noel III, MD Referring Provider First Name Yovanny Referring Provider Last Name Sadie Referring Provider Speciality Internal edicine Referred Organization [facility]ter Referred Provider Franklin Eason Referred Address [address] [place] [address],[place], [id number], Referred Provider Specialty Vascular Fred meg General Notes Leatha Wood CMA 02/02 01:23:25 PM > called Vilma at Dr Eason office [phone] pt has appt for a vascular ultrasound [...] Referring Provider Speciality Internal edicine Referred Provider [facility] er, Pain Management Referred Provider Specialty Pain Medicin e General Notes Leatha Wood CMA 03/10 09:50:49 AM >ref/demo/progress note /MRI faxed to Pain management at , Leatha Wood CMA 03/17/2025 11:18:38 AM > I called pain management [phone] they stated pt has appt on 03/30/2025 12:00pm Referral Priority Routine Referral Appointment Date 03/30/2025 Reason lumbar back pain e valuate to see if can have spinal stimulator Diagnosis 1 Lumbar radiculopathy (M54.16) Referral Organization Yovanny Noel III, MD Referring Provider First Name Yovanny Referring Provider Last Name Sadie Referring Provider Speciality Internal M edicine [facility] Referred Provider Specialty Orthopedic S urgery General Notes Leatha Wood KRISTIN 04/02 11:34:20 AM >ref/demo/progress notes/x rays faxed to [facility] patient called and made aware of this and told to call to set up her appt with them, Leatha Wood KRISTIN 04/06/2025 10:33:13 AM >pt called stated she has appt today at [facility] 04/06/2025 at 3:30pm Referral Priority Routine Medications Medication SIG (Take, Route, Frequency, Duration) Notes Start Date End Date Status Meloxicam 15 MG Take 1 tablet by paras th once daily Active Furosemide 40 MG 1 tablet Orally Once a day 02/15/2021 Active Loratadine 10 MG Take 1 tablet by paras th once daily Active Montelukast Sodium 10 MG 1 tablet in the evening Orally Once a day Active Simvastatin 40 MG Take 1 tablet by paras th in the evening Orally Once a day Active Ibuprofen 800 MG 1 tablet Orally Thre e times a day 07/28/2016 Active Clotrimazole 1 % 1 application Externally Twice a day 04/23/2025 Active Pregabalin 75 MG 1 capsule Orally Onc e a day 01/27/2025 Active Combivent 18-103 MCG/ACT 2 puffs Inhalat ion Six times a day Active Azithromycin 250 MG like directed Orally 2 Tablets on the first day, one tablet the rest of the days for 5 days 08/12/2025 Active Advair Diskus 500-50 MCG/DOSE 1 puff Inhalation every 12 hrs Active dexAMETHasone 2 MG 1 tablet Orally teic e a day 01/27/2025 Active Escitalopram Oxalate 20 MG 1 tablet Oral ly Once a day 12/29/2021 Active Senna Laxative 8.6 MG 1 tablet Orally tw ice a day 12/29/2024 Active Mupirocin 2 % 1 application Externally Twice a day for 30 days 09/08/2025 10/08/2025 Active Pantoprazole Sodium 20 MG 1 tablet 1/2 t o 1 hour before morning meal Orally Once a day 10/27/2024 Active Clopidogrel Bisulfate 75 MG TAKE 1 TABLE T BY MOUTH ONCE DAILY Orally Once a day Active Metoprolol Tartrate 100 MG Take 1 tablet by mouth twice daily with food Active Polyethylene Glycol 3350 17 GM 1 packet mixed with 8 ounces of fluid Orally Once a day Active Flonase 50 MCG/ACT 1 spray in each nost ril Nasally Once a day 09/28/2023 Active Gabapentin 300 MG 1 capsule Orally thr ee times a day 01/23/2023 Active Cyclobenzaprine HCl 10 MG as directed Or ally three times a day 08/15/2022 Active Esomeprazole Magnesium 40 MG Take 1 capsule by mouth once daily Active K-Tab 10 MEQ 1 tablet with food Orally Once a day 02/15/2021 Active Social History Tobacco Use: Social History [...] Problem Status W/U Status Risk Notes Problem 9124066 Former smoker (Z87.891) Active confirmed She is highly motivated to not smoke. We have discussed a strategy for maintenance of abstinence in times of stress and illness. Problem 899544293 Asthma (J45.909) Active confirmed She has bbeen free of asthma lately. There was no wheezing today. She was breathing room air comfortably. Current therapy was continued. Problem 350248329 Lumbar radiculopathy (M54.16) Active confirmed She has undergone the L5-S1 fusion without complication. She continues to have postoperative pain. She is receiving [facility] physical therapy. She is encouraged to continue to participate to be optimistic about the future.. Problem Hyperlipidemia (69648786) Hyperlipidemia, unspecified (E78.5) Active confirmed Comprehensive blood work with a fasting lipid profile has been ordered. No change in her medications was made today. Problem Chronic sinusitis (44625152) Chronic sinusitis, unspecified (J32.9) Active confirmed She has been given another course of Augmentin. She reports today that she is beginning to improve and brief more normally. A CT scan of her skull and sinuses showed no significant abnormality. Problem 23781090 Postnasal drip (R09.82) Active confirmed Her symptoms have resolved and she says she feels well today. She is breathing comfortably. Her medications were continued. Problem 95674472 Essential hypertension (I10) Active confirmed She is complian t with all of her medications but in significant pain. Her systolic blood pressure is higher than optimal. We will address this with medication, sodium restriction, weight loss and when she has recovered from surgery, physical activity. Problem 71851129 Other and unspecified hyperlipidemia (E78.5) Active confirmed Comprehensive blood work with a fasting lipid profile is being done periodically.The most recent total cholesterol was within normal limits. Problem CVA - Cerebrovascular accident (470868017) CVA (cerebral vascular accident) (I63.9) Active confirmed She continues t o have mild residual numbness in left side of her face but no muscle weakness is noted. She is able to conduct all of the activities of daily living. Her blood pressure is stable and her weight is dropping steadily. She is consuming a healthy, low-sodium diet. Problem 160344296238703 Left foot pain (M79.672) Active confirmed This has been present for 2 weeks. It is worse when she bears weight. The examination was unremarkable. An x-ray has been ordered. Problem 691748205 Nontoxic uninodular goiter (E04.1) Active confirmed Her thyroid i s not palpable today. She appears to be euthyroid. This problem will be followed closely. Problem 09874444 Vitamin D deficiency (E55.9) Active confirmed She is continuing on vitamin D supplementation. 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 Problem Constipation (39413619) Constipation (K59.00) Active confirmed I gave her instructions to consume one [employer] brands fairly with every breakfast. She will take Senokot twice a day. A followup was arranged. Problem 257196525 Morbid obesity (E66.01) Active confirmed She continues t o participate in the weight-loss program. She has lost 12 pounds since October 31, 2024. She will continue on her current therapies without change. She will be seen frequently to weigh her and form of support. Problem 82771074 Sleep apnea in adult (G47.30) Active confirmed She continues to use her CPAP. Problem 24539213 Reactive depression (F32.9) Active confirmed She has been taking citalopram only intermittently. She will continue to take it on a daily basis. Follow-up visit near future was scheduled. Problem 372224698 Pain of left lower extremity (M79.605) Active confirmed Problem Gastroesophageal reflux disease with esophagitis (disorder) (549164294) Gastro-esophage al reflux disease with esophagitis, without bleeding (K21.00) Active confirmed Her reflux symptoms are well controlled with medication. She is avoiding foods and medication that stimulate acid production. Problem 364046966 Stage 3b chronic kidney disease (N18.32) Active confirmed Her current GFR is 38. She is under the care of nephrology. Her hydrochlorothiaz lucie was stopped. Her blood pressure was reasonable today. Vital Signs Heart Rate 73 /min 09/08/2025 Temperature 97.3 degrees Fahrenheit 09/08/2025 Blood pressure diastolic 78 mm Hg 09/08/2025 Height 63 in 09/08/2025 Blood pressure systolic 136 mm Hg 09/08/2025 Weight 271 lbs 09/08/2025 BMI 48 kg/m2 09/08/2025 Encounters Encounter Location Date Provider Diagnosis Yovanny Noel III, MD [address] [place] [address] [place] [address] 09/08/2025 Yovanny Noel Ulcer of nose J34.0 Yovanny Noel III, MD [address] [place] [address] [place] [address] 10/02/2024 Yovanny Noel Asthma J45.909 ; For [place] smoker Z87.891 ; Essential hypertension I10 ; Morbid obesity E66.01 and Lumbar radiculopathy M54.16 Yovanny Noel III, MD [address] [place] [address] [place] [address] 10/15/2024 Yovanny Noel Asthma J45.909 ; For [...] Reactive depression F32.9 Yovanny Noel III, MD [address] [place] [address] [place] [address] 10/21/2024 Yovanny Noel Asthma J45.909 ; Lum bar radiculopathy M54.16 ; Morbid obesity E66.01 ; Sleep apnea in adult G47.30 ; Vitamin D deficiency E55.9 and Reactive depression F32.9 Yovanny Noel III, MD [address] [place] [address] [place] [address] 10/31/2024 Yovanny Noel Asthma J45.909 ; For [place] smoker Z87.891 ; Essential hypertension I10 ; Morbid obesity E66.01 and Lumbar radiculopathy M54.16 Yovanny Noel III, MD [address] [place] [address] [place] [address] 12/29/2024 Yovanny Noel Asthma J45.909 ; Mor bid obesity E66.01 ; Other and unspecified hyperlipidemia E78.5 ; Nontoxic uninodular goiter E04.1 ; Former smoker Z87.891 ; CVA (cerebral vascular accident) I63.9 ; Sleep apnea in adult G47.30 ; Vitamin D deficiency E55.9 ; Stage 3b chronic kidney disease N18.32 and Constipation K59.00 Yovanny Noel III, MD [address] [place] [address] [place] [address] 01/14/2025 Yovanny Noel Asthma J45.909 ; Oth er and unspecified hyperlipidemia E78.5 ; Nontoxic uninodular goiter E04.1 ; Former smoker Z87.891 ; Essential hypertension I10 ; Reactive depression F32.9 ; Vitamin D deficiency E55.9 ; Stage 3b chronic kidney disease N18.32 and Constipation K59.00 Yovanny Noel III, MD [address] [place] [address] [place] [address] 01/27/2025 Yovanny Noel Morbid obesity E66.0 1 ; Other and unspecified hyperlipidemia E78.5 ; Nontoxic uninodular goiter E04.1 ; Former smoker Z87.891 ; Essential hypertension I10 ; Asthma J45.909 ; CVA (cerebral vascular accident) I63.9 ; Sleep apnea in adult G47.30 ; Reactive depression F32.9 and Lumbar radiculopathy M54.16 Yovanny Noel III, MD [address] [place] [address] [place] [address] 03/03/2025 Yovanny Noel Left foot pain M79.6 72 ; Other and unspecified hyperlipidemia E78.5 ; Nontoxic uninodular goiter E04.1 ; Former smoker Z87.891 ; Essential hypertension I10 ; Asthma J45.909 ; Morbid obesity E66.01 ; Lumbar radiculopathy M54.16 ; Sleep apnea in adult G47.30 and Reactive depression F32.9 Yovanny Noel III, MD [address] [place] [address] [place] [address] 03/31/2025 Yovanny Noel Lumbar radiculopathy M54.16 ; Postnasal drip R09.82 ; Other and unspecified hyperlipidemia E78.5 ; Nontoxic uninodular goiter E04.1 ; Former smoker Z87.891 ; Essential hypertension I10 ; Asthma J45.909 ; Morbid obesity E66.01 ; CVA (cerebral vascular accident) I63.9 ; Stage 3b chronic kidney disease N18.32 and Sleep apnea in adult G47.30 Yovanny Noel III, MD [address] [place] [address] [place] [address] 04/15/2025 Yovanny Noel Former smoker Z87.89 1 ; Postnasal drip R09.82 ; Chronic sinusitis, unspecified J32.9 ; Other and unspecified hyperlipidemia E78.5 ; Nontoxic uninodular goiter E04.1 ; Essential hypertension I10 and Asthma J45.909 Yovanny Noel III, MD [address] [place] [address] [place] [address] 07/31/2025 Yovanny Noel Former smoker Z87.89 1 ; Morbid obesity E66.01 ; Lumbar radiculopathy M54.16 ; Other and unspecified hyperlipidemia E78.5 ; Nontoxic uninodular goiter E04.1 ; Essential hypertension I10 and CVA (cerebral vascular accident) I63.9 Yovanny Noel III, MD [address] [place] [address] [place] [address] 10/17/2024 Yovanny Noel III, MD [address] [place] [address] 10/17/2024 Yovanny Noel III, MD [address] [place] [address] 10/21/2024 Yovanny Noel III, MD [address] [facility] [place] [address] 10/27/2024 Yovanny Noel III, MD [address] [facility] [place] [address] 03/23/2025 Yovanny Noel III, MD [address] [facility] [place] [address] 04/07/2025 Yovanny Noel III, MD [address] [facility] [place] [address] 04/23/2025 Yovanny Noel III, MD [address] [facility] [place] [address] 04/23/2025 Yovanny Noel III, MD [address] [facility] [place] [address] 06/08/2025 Yovanny Noel III, MD [address] [facility] [place] [address] 06/10/2025 Yovanny bonilla R09.8 2 Yovanny Noel III, MD [address] [facility] [place] [address] 06/26/2025 Yovanny Noel III, MD [address] [facility] [place] [address] 07/14/2025 Yovanny Noel III, MD [address] [place] [address] 07/28/2025 Yovanny Noel III, MD [address] [facility] [place] [address] 07/29/2025 Yovanny Noel III, MD [address] [facility] [place] [address] 08/05/2025 Yovanny Noel III, MD [address] [facility] [place] [address] 08/12/2025 Yovanny Noel III, MD [address] [place] [address] [address] [place] [address] 08/12/2025 Yovanny Noel Assessments Encounter Date Diagnosis (ICD Code) Assessment Notes Treatment Notes Treatment Clinical Notes 09/08/2025 Ulcer of nose (ICD-10 - J34.0) 10/02/2024 Former smoker (ICD-10 - Z87.891) She [...] is breathing comfortably. Her medications were continued. 07/31/2025 Former smoker (ICD-10 - Z87.891) She is [...] to weigh her and form of support. 06/10/2025 Postnasal drip (ICD-10 - R09.82) Her symptoms have resolved and she says she feels well today. She is breathing comfortably. Her medications were continued. 10/02/2024 Essential hypertension (ICD-10 - I10) Her [...] skull and sinuses showed no significant abnormality. 07/31/2025 Lumbar radiculopathy (ICD-10 - M54.16) She has undergone the L5-S1 fusion without complication. She continues to have postoperative pain. She is receiving [facility] physical therapy. She is encouraged to continue to participate to be optimistic about the future.. 10/02/2024 Morbid obesity (ICD-10 - E66.01) Her [...] total cholesterol was within normal limits. 07/31/2025 Other and unspecified hyperlipidemia (ICD-10 - E78.5) Comprehensive blood work with a fasting lipid profile is being done periodically.The most recent total cholesterol was within normal limits. 10/02/2024 Lumbar radiculopathy (ICD-10 - M54.16) She [...] it remains high we'll communicate with the public relations manager. 03/31/2025 Former smoker (ICD-10 - Z87.891) She is highly motivated to not smoke. We have discussed a strategy for maintenance of abstinence in times of stress and illness. 04/15/2025 Nontoxic uninodular goiter (ICD-10 - E04.1) Her thyroid is not palpable today. She appears to be euthyroid. This problem will be followed closely. 07/31/2025 Nontoxic uninodular goiter (ICD-10 - E04.1) Her thyroid is not palpable today. She appears to be euthyroid. This problem will be followed closely. 10/15/2024 Nontoxic uninodular goiter (ICD-10 - E04.1) [...] it remains high we'll communicate with the public relations manager. 04/15/2025 Essential hypertension (ICD-10 - I10) Her blood pressure was slightly high today. She has been compliant with her medications. He was given an appointment in the very near future to return to measure it again. If it remains high we'll communicate with the public relations manager. 07/31/2025 Essential hypertension (ICD-10 - I10) She is compliant with all of her medications but in significant pain. Her systolic blood pressure is higher than optimal. We will address this with medication, sodium restriction, weight loss and when she has recovered from surgery, physical activity. 10/15/2024 Other and unspecified hyperlipidemia (ICD-10 - [...] room air comfortably. Current therapy was continued. 07/31/2025 CVA (cerebral vascular accident) (ICD-10 - I63.9) She continues to have mild residual numbness in left side of her face but no muscle weakness is noted. She is able to conduct all of the activities of daily living. Her blood pressure is stable and her weight is dropping steadily. She is consuming a healthy, low-sodium diet. 10/15/2024 CVA (cerebral vascular accident) (ICD-10 - [...] to weigh her and form of support. 10/15/2024 De Quervain's disease (radial styloid tenosynovitis) [...] UNILATERAL ARTERY 01/27/2025 US RENAL DOPPLER 12/04/2022 Basic Metabolic Panel 09/07/2025 Lipid Panel 09/07/2025 Gram stain 09/08/2025 Routine Culture 09/08/2025 Next Appt Details Provider Name:Yovanny Noel , 10/05/2025 10:30:00 AM, [address] [place] [address] [address], [address], [place], [address], Insurance Providers Payer Name Payer Address Payer Phone Subscriber Number Group Number Insured Name Patient Relationship to Insured Coverage Start Date Coverage End Date MEDICARE NGS [address] [place] [address] [id number] Lynnette Mcgill Self - patient is the insured MED[place] [address] [facility] [place] [id number] Lynnette Mcgill Self - patient is the [...]
--- OUTSIDE RECORDS SUMMARY | 2025-09-08 17:23 | XMS_ITS | Encounter Summary ---
Author Organization [employer] [facility] Prior to 08/01/2024 Address [address] [place] [address] Care Team Providers Care Supervisor Lead Refinery Name Role Phone Yovnany Noel MD Primary Care Provider Sharon meredith Encounter Details Date Type Department Care Team Description 08/23/2021 Orders Only Medical Records [address] [place] [address] Abstract, Provider Social History Tobacco Use Types [...] Name Priority Date/Time Associated Diagnosis Comments OUTSIDE LDCT LUNG SCAN Routine 08/23/2021 documented in this encounter Results * OUTSIDE LDCT LUNG SCAN (08/23/2021) Provider Abstract RADIOLOGY documented in this encounter Visit Diagnoses Not on filedocumented in this encounter Care Teams Supervisor Lead Refinery Relationship Specialty Start Date End Date Yovanny Noel MD PCP - General 05/04/08 documented as of this encounter
--- OUTSIDE RECORDS SUMMARY | 2025-09-08 17:23 | XMS_ITS | Encounter Summary ---
Author Organization [facility] Prior to 08/01/2024 Address [address] [place] [address] Care Team Providers Care Coach Name Role Phone Yovanny Noel MD Primary Care Provider Sharon meredith Reason for Visit * Reason Onset Date Comments Faxed Refill 09/08/2020 Encounter Details Date Type Department Care Team Description 09/08/2020 Refill Pulmonology - [place] [address] [phone] Mike, Marielena, FORM BUILDING SUPERVISOR [address] [phone] Faxed Refill Social History Tobacco Use Types Packs/Day Years Used Date Smoking Tobacco: Former Smokeless Tobacco: Never Alcohol Use Standard Drinks/Week Comments No 0 (1 standard drink = 0.6 oz pur e alcohol) Sex Assigned at Date Recorded Not on file COVID-19 Exposure Response Date Recorded In the last month, have you been in contact with someone who was confirmed or suspected to have Coronavirus / COVID-19? Unable to assess 08/12/2020 6:34 AM EST documented as of this encounter Miscellaneous Notes * Telephone Encounter - Maria Del Carmen Ingram - 09/08/2020 4:45 PM EST TONA- 03.29.2020 NOV- [facility] to call office and schedule f/u appt documented in this encounter Plan of Treatment Not on file documented as of this encounter Visit Diagnoses Diagnosis Moderate persistent asthma without complication Unspecified asthma documented in this encounter Care Teams Coach Relationship Specialty Start Date End Date Yovanny Noel MD PCP - General 05/04/08 documented as of this encounter
--- OUTSIDE RECORDS SUMMARY | 2025-09-08 17:23 | XMS_ITS | Encounter Summary ---
Author Organization [employer] [facility] Prior to 08/01/2024 Address [address] [place] [address] Care Team Providers Care Traffic Survey Technician Name Role Phone Yovanny Noel MD Primary Care Provider Sharon meredith Reason for Visit * Reason Onset Date Comments Letter 05/23/2021 Encounter Details Date Type Department Care Team Description 05/23/2021 Telephone General Surgery - [place] 175 [facility] [address] [place] [address] Nay Edwards, MS,RDN,LDN 175 [facility] Harry [address] [place] [phone] Letter Social History Tobacco Use Types Packs/Day Years [...] or suspected to have Coronavirus / COVID-19? No / Unsure 05/23/2021 8:52 AM EDT documented as of this encounter Miscellaneous Notes * Telephone Encounter - Kesha Lindsey - 05/23/2021 9:26 AM EDT Received envelope from patient to give to Nay. She did also corn picker the binder. documented in this encounter Plan of Treatment Not on file documented as of this encounter Visit Diagnoses Not on filedocumented in this encounter Care Teams Traffic Survey Technician Relationship Specialty Start Date End Date Yovanny Noel MD PCP - General 05/04/08 documented as of this encounter
--- OUTSIDE RECORDS SUMMARY | 2025-09-08 17:24 | XMS_ITS | Clinical Summary ---
Author Organization [facility] Address [address] [place] [address] Phone Care Team Providers Care Communications Editor Name Role Phone Yovanny Noel MD Primary Care Provider Allergies Active Allergy Reactions Criticality Noted Date Comments Tomato 02/19/2018 Watermelon 02/19/2018 Medications CHOLECALCIFEROL, VITAMIN D3, ORAL Take [...] 44.9 in adult (CMS/HCC V24, CMS/HCC V28) Take 1 tablet (150 mg total) by mouth 1 (one) time each day. Do not crush, chew, or split. 90 tablet 1 5 Active amLODIPine (NORVASC) 10 mg tablet Take 1 tablet (10 mg total) by mouth 1 (one) time each day. 1 Active hydrOXYzine HCL (ATARAX) 50 mg tablet Take 1 tablet (50 mg total) by mouth 3 times daily as needed. 2 Active meloxicam (MOBIC) 15 mg tablet Take 1 tablet (15 mg total) by mouth 1 (one) time each day. Active pantoprazole (PROTONIX) 20 mg EC tablet TAKE 1 TABLET BY MOUTH ONCE DAILY 30-60 MINUTES BEFORE MORNING MEAL 5 Active potassium chloride (KLOR-CON) 10 mEq CR tablet Take 1 tablet (10 mEq total) by mouth 1 (one) time each day. Active pregabalin (LYRICA) 75 mg capsule 1 capsule (75 mg total) 1 (one) time each day at the same time. Max Daily Amount: 75 mg 5 Active senna 8.6 mg tablet Take 1 tablet (8.6 mg total) by mouth 2 (two) times a day. 5 Active traZODone (DESYREL) 150 mg tablet TAKE 2 TABLETS BY MOUTH ONCE DAILY AT BEDTIME (DOSE INCREASED) 4 Active umeclidinium (INCRUSE ELLIPTA) 62.5 mcg/actuation inhalation Active spironolactone (ALDACTONE) 50 mg tablet 1 Active esomeprazole (NexIUM) [address] capsule Take 1 capsule (40 mg total) by mouth 1 (one) time each day. 4 Active escitalopram (LEXAPRO) 20 mg tablet 1 tablet (20 mg total) 1 (one) time each day at the same time. 2 Active docusate sodium (COLACE) 100 mg capsule Take 1 capsule (100 mg total) by mouth 2 (two) times a day. Active linaCLOtide (Linzess) 145 mcg capsuleIndicatio ns:Chronic constipation Take 1 capsule (145 mcg total) by mouth 1 (one) time each day. 30 each 5 5 12/03/19 26 Active topiramate (TOPAMAX) 100 mg tabletIndication s:Class 3 severe obesity due to excess calories with serious comorbidity and body mass index (BMI) of 40.0 to 44.9 in adult (CMS/HCC V24, CMS/HCC V28) TAKE 1 TABLET BY MOUTH AT BEDTIME 30 tablet 5 Active Active Problems Problem Noted Date Diagnosed Date Chronic rhinitis 12/31/2024 Posterior rhinorrhea 12/31/2024 Allergic rhinitis 11/12/2024 Atypical facial pain 11/04/2024 Chronic sinusitis 09/19/2024 Cerebrovascular accident (CVA) 04/17/2022 Chronic pain 04/17/2022 Pain in joint involving pelvic region and thigh 04/17/2022 Muscle weakness 04/17/2022 COVID-19 04/17/2022 Radial styloid tenosynovitis (de quervain) 04/17 Reactive depression (situational) 04/17/2022 Chest pain 04/17/2022 Eating disorder, unspecified 08/09/2021 Overview (08/26/2024): Tiffanie Benitez PhD History of cerebrovascular a ccident (CVA) with residual deficit 08/09/2021 Overview (08/26/2024): Left sided weakness Allergic rhinitis due to pollen 06/16/2021 Overview (03/13/2025): Allergic rhinitis due to pollen; Note: Date Diagnosed: 06/16/2021 11:31 AM (J30.1) Left ventricular hypertrophy 05/21/2019 Pulmonary nodules 05/21/2019 DEMI (obstructive sleep apnea) 02/07/2018 Overview (08/26/2024): [facility] Home Sleep Apnea Test: Date 04/30/2019; [...] Encounters Date Type Department Care Team Description 09/08/2025 9:30 AM EST Lab Draw Station - [address] [place] [address] Chronic constipation; Rectal bleeding; Prediabetes 09/08/2025 9:15 AM EST Office Visit Bariatric Surgery - [place] 175 [facility] [address] [place] [phone] Julian Hubbard MD DEMI (obstructive sleep apnea) (Primary Dx); Prediabetes; Class 3 severe obesity due to excess calories with body mass index (BMI) of 45.0 to 49.9 in adult, unspecified whether serious comorbidity present (CMS/[facility] V24, CMS/[facility] V28) 09/08/2025 Results Follow-Up Gastroenterology - [address] [address] Monty Phipps MD 08/06/2025 10:20 AM EST - 08/06/2025 11:59 PM EST Hospital Encounter [facility] [address] [place] [address] Encounter for screening mammogram for breast cancer Discharge Disposition: Home or Self Care 08/03/2025 11:15 AM EST Lab Draw Station - 299 [facility] 299 [facility] [place] [address] Other constipation (Primary Dx); Hemorrhage of rectum and anus 08/03/2025 Results Follow-Up Gastroenterology - [address] [address] Monty Phipps MD 08/03/2025 Telephone Gastroenterology - [address] [address] Fawn Charles [place] 07/27/2025 Telephone Gastroenterology - [address] [address] Monty Phipps MD 06/12/2025 1:15 PM EDT - 06/12/2025 1:33 PM EDT Emergency [facility] Emergency [address] [place] [address] Damaris Mena MD Chronic left-sided low back pain with left-sided sciatica (Primary Dx) Discharge Disposition: Home or Self Care 06/09/2025 Telephone Gastroenterology - [address] [place] [address] Chichi Gaytan PA from Last 3 Months Surgical History Surgery Date Site/Laterality Comments HYSTERECTOMY PROCEDURE: HISTORICAL HYSTERECTOMY KNEE SURGERY Left PROCEDURE: HISTORICAL KNEE SURGERY SLEEVE GASTROPLASTY 10/01/2020 - 09/30/2021 COLONOSCOPY 06/01/2023 - 06/30/2023 10 yr recall STEREOTACTIC CORE BIOPSY Right Medical History Medical History Date Comments Morbid obesity with BMI of 5 0.0-59.9, adult (CMS/HCC V24, CMS/HCC V28) 12/04/2017 DX:Morbid obesity wit h BMI of 50.0-59.9, adult ([facility]) Hyperlipidemia 12/04/2017 DX:Hyperlipidemi a Nontoxic uninodular goiter 12/04/2017 DX:No ntoxic uninodular goiter Hypertension 12/04/2017 DX:Hypertension Asthma 12/04/2017 DX:Asthma Lumbar radiculopathy 12/04/2017 DX:Lumbar r adiculopathy Eating disorder, unspecified 08/09/2021 DX: Eating disorder, unspecified; COMMENT: Tiffanie Benitez PhD Left ventricular hypertrophy 05/21/2019 DX: Left ventricular hypertrophy DEMI (obstructive sleep apnea) 02/07/2018 DX :DEMI (obstructive sleep apnea); COMMENT: [facility] Home Sleep Apnea Test: Date 04/30/2019; [...] ETOH, Breast cancer Mother depression, HT N Breast cancer Mother's Sister Diabetes Son Diabetes Uncle Relation Name Status Comments Father Mother Mother's Sister Alive Son Alive Uncle Alive maternal Social History [...] Sexual Orientation Not on file Obstetrics History Para Term AB IAB SAB Ectopic Multiple Livin g Live Births 4 Last Filed Vital Signs Vital Sign Reading Time Taken Comments Blood Pressure 189/99 09/08/2025 9:03 AM EST Pulse 74 09/08/2025 9:03 AM EST Temperature 36.6 C (97.8 F) 09/08/2025 9:03 AM EST Respiratory Rate 18 06/12/2025 1:08 PM EDT Oxygen Saturation 98% 06/12/2025 1:08 PM EDT Inhaled Oxygen Concentration - - Weight 123 kg (271 lb) 09/08/2025 9:03 AM EST Height 165.1 cm (5' 5 ) 09/08/2025 9:03 AM EST Body Mass Index 45.1 09/08/2025 9:03 AM EST Plan of Treatment Upcoming Encounters Date Type Department Care Team (Late st Contact Info) Description 10/28/2025 9:30 AM EST Office Visit Gastroenterology - 299 [facility] 299 [facility] [address] [place] [phone] Amee Dean PA 299 [facility] [address] [place] [address] 03/25/2026 11:15 AM EDT Office Visit Bariatric Surgery - [place] 175 [facility] [address] [place] [address] Julian Hubbard MD [address] [place] [phone] Health Maintenance Due Date Last Done Comments Colorectal Cancer Screening: Colonoscopy 1961 DTaP,Tdap,and Td Vaccines (1 - Tdap) 1980 Pneumococcal Vaccine: 50+ Years (1 of 2 - PCV) 1980 Cervical Cancer Screening: Pap Smear 1982 RSV Immunization Adult Patients (1 - Risk 50-74 years 1-dose series) 2011 Zoster Vaccines (1 of 2) 2011 HIV Screening 08/29/2022 Hepatitis C Screening 08/29/2022 Medicare Annual Wellness Visit 08/29/2022 Social Influencers of Health Screening 08/29/2022 Hypertension/CHF/CAD Annual BMP Blood Test 01/31/2024 01/30/2023 Depression Screening 10/01/2024 07/08/2024 COVID-19 Vaccine ( - season) 2025 Influenza Vaccine (#1) 2025 Cholesterol Screening (Lipid Panel) 04/22/2026 04/22/2021 Breast Cancer Screening 08/06/2027 08/06/20 25, 05/08/2024, 06/26/2022, Additional history exists HIB Vaccines Aged Out [...] 9:18 AM EST Chronic constipation Rectal bleeding MG MAMMO DIGITAL SCREENING W NIKITA BILAT Routine 08/06/2025 10:47 AM EST Encounter for screening mammogram for breast cancer CBC WITH AUTO DIFFERENTIAL Routine 08/03/2025 11:29 AM EST Other constipation Hemorrhage of rectum and anus CBC AND DIFFERENTIAL Routine 08/03/2025 11:29 AM EST Other constipation Hemorrhage of rectum and anus DEPRESSION SCREENING Routine 07/08/2024 ANNUAL BMP BLOOD TEST Routine 01/30/2023 LIPID PANEL Routine 04/22/2021 from Last 3 Months or Most Recently Relevant to Health Maintenance Results * (ABNORMAL) CBC auto differential (09/08/2025 9:18 AM EST) Only the most recent of2 resultswithin the time period is included. WBC 4.9 4.8 - 10.8 K/mcL LAB HEMETOLOGY METHOD 09/08/2025 10:24 AM [facility] RBC 3.90 3.80 - 4.80 M/mcL LAB HEMETOLOGY METHOD 09/08/2025 10:24 AM [facility] Hemoglobin 10.4(L) 11.5 - 16.0 g/dL LAB HEMETOLOGY METHOD 09/08/2025 10:24 AM [facility] Hematocrit 33.9(L) 35.0 - 47.0 % LAB HEMETOLOGY METHOD 09/08/2025 10:24 AM [facility] MCV 86.0 79.0 - 98.0 FL LAB HEMETOLOGY METHOD 09/08/2025 10:24 AM [facility] MCH 26.4(L) 27.0 - 32.0 pcg LAB HEMETOLOGY METHOD 09/08/2025 10:24 AM [facility] LAB MCHC 30.7(L) 32.0 - 37.0 g/dL LAB HEMETOLOGY METHOD 09/08/2025 10:24 AM [facility] RDW 12.5 11.0 - 15.0 % LAB HEMETOLOGY METHOD 09/08/2025 10:24 AM [facility] Platelets 258 130 - 400 K/mcL LAB HEMETOLOGY METHOD 09/08/2025 10:24 AM [facility] MPV 11.1(H) 7.0 - 11.0 FL LAB HEMETOLOGY METHOD 09/08/2025 10:24 AM [facility] NRBC 0.0 <1.0 % LAB HEMETOLOGY METHOD 09/08/2025 10:24 AM [facility] NRBC Absolute 0.00 <0.10 K/mcL LAB HEMETOLOGY METHOD 09/08/2025 10:24 AM [facility] Neutrophils Relative 43.1 % LAB HEMETOLOGY METHOD 09/08/2025 10:24 AM [facility] Lymphocytes Relative 42.4 % LAB HEMETOLOGY METHOD 09/08/2025 10:24 AM [facility] Monocytes Relative 9.4 % LAB HEMETOLOGY METHOD 09/08/2025 10:24 AM [facility] Eosinophils Relative 3.9 % LAB HEMETOLOGY METHOD 09/08/2025 10:24 AM [facility] Basophils Relative 1.2 % LAB HEMETOLOGY METHOD 09/08/2025 10:24 AM [facility] Immature Granulocytes Relative 0.0 % LAB HEMETOLOGY METHOD 09/08/2025 10:24 AM [facility] Neutrophils Absolute 2.10 1.50 - 7.00 K/mcL LAB HEMETOLOGY METHOD 09/08/2025 10:24 AM [facility] Lymphocytes Absolute 2.07 1.00 - 5.00 K/mcL LAB HEMETOLOGY METHOD 09/08/2025 10:24 AM EST [facility] Monocytes Absolute 0.46 0.20 - 1.00 K/[facility] LAB HEMETOLOGY METHOD 09/08/2025 10:24 AM EST [facility] Eosinophils Absolute 0.19 0.00 - 0.50 K/[facility] LAB HEMETOLOGY METHOD 09/08/2025 10:24 AM EST [facility] Basophils Absolute 0.06 0.00 - 0.20 K/[facility] LAB HEMETOLOGY METHOD 09/08/2025 10:24 AM EST [facility] Immature Granulocytes Absolute 0.00 0.00 - 0.03 K/[facility] LAB HEMETOLOGY METHOD 09/08/2025 10:[address] [facility] Blood Venous blood specimen / Unknown Venipuncture / Unknown 09/08/2025 9:18 AM EST 09/08/2025 9:18 AM EST Monty Phipps MD LAB BLOOD ORDERABLES Final Result [facility] [address] [place] [address], * MG Mammo Digital Screening w Nikita bilat (08/06/2025 10:47 AM EST) Anatomical Region Laterality Modality Breast Bilateral Mammography 08/06/2025 10:5 7 AM EST Impressions 08/06/2025 11:21 AM EST Benign. BI-RADS CATEGORY: 1 - NEGATIVE RECOMMENDATION: Screening bilateral mammogram is recommended in 1 year. Mammo Location: [facility], [address] [place], [place], [address], . -------- FINAL REPORT -------- Dictated By: Praful Og Dictated Date: 08/06/2025 10:57 ET Assigned Physician: Praful Og Reviewed and Electronically Signed By: Praful Og Signed Date: 08/06/2025 11:21 ET Workstation ID: [id number] Transcribed By: Self Edit Transcribed Date: 08/06/2025 10:57 ET Narrative 08/06/2025 11:21 AM EST CLINICAL: 64 years old, Female, routine annual exam. COMPARISON: 05/08/2024 and 06/26/2022. TECHNIQUE: Bilateral MLO and CC views were obtained digitally with 3-D mammogram (digital breast tomosynthesis). Computer-aided detection was utilized in evaluation of this exam (CAD). FINDINGS: No suspicious mass or architectural distortion. No suspicious calcification. There has been no significant change from prior exam(s). BREAST DENSITY: A - The breasts are almost entirely fatty. Procedure Note Praful Og MD - 08/06/2025 CLINICAL: 64 years old, Female, routine annual exam. COMPARISON: 05/08/2024 and 06/26/2022. TECHNIQUE: Bilateral MLO and CC views were obtained digitally with 3-Dmammogram (digital breast tomosynthesis). Computer-aided detection wasutilized in evaluation of this exam (CAD). FINDINGS: No suspicious mass or architectural distortion. No suspiciouscalcification. There has been no significant change from prior exam(s). BREAST DENSITY: A - The breasts are almost entirely fatty. IMPRESSION: Benign. BI-RADS CATEGORY: 1 - NEGATIVE RECOMMENDATION: Screening bilateral mammogram is recommended in 1 year. Mammo Location: [facility], [address] [place] [address], [facility], . -------- FINAL REPORT -------- Dictated By: Praful Og Dictated Date: 08/06/2025 10:57 ET Assigned Physician: Praful Og Reviewed and Electronically Signed By: Praful Og Signed Date: 08/06/2025 11:21 ET Workstation ID: [id number] Transcribed By: Self Edit Transcribed Date: 08/06/2025 10:57 ET us Self Referral Sppl IMG BI PROCEDURES Final Resul t * Hm Depression Screening (07/08/2024) Pathologist [facility] Depression Screening Abstracted Historical Provider HEALTH MAINTENANCE Final Result * Annual BMP Blood Test (01/30/2023) [facility] Annual BMP Blood Test Abstracted Historical Provider HEALTH MAINTENANCE Final Result * (ABNORMAL) Lipid panel (04/22/2021) [facility] LDL/HDL Ratio 6(A) 0 - 4 Triglycerides 159(A) 0 - 150 mg/dL Cholesterol 273(A) 0 - 200 mg/dL HDL 48 >=40 mg/dL LDL Cholesterol 194(A) 0 - 100 mg/dL Blood Venous blood specimen / Unknown Historical Provider LAB BLOOD ORDERABLES Frieda l Result from Last 3 Months or Most Recently Relevant to Health Maintenance Insurance MEDICA[place] - [place] MEDICARE Care Teams Communications Editor Relationship Specialty Start Date End Date Yovanny Noel MD [address] [address] PCP - General Oncology 07/25/24
--- OUTSIDE RECORDS SUMMARY | 2025-09-08 17:26 | XMS_ITS | Encounter Summary ---
Author Organization [facility] Address [address] [place] [address] Care Team Providers Care Play Leader Name Role Phone Yovanny Noel MD Primary Care Provider [phone] Encounter Details Date Type Department Care Team (Late st Contact Info) Description 09/08/2025 Results Follow-Up Gastroenterology - [address] [phone] Monty Phipps MD [address] [place] [address] Social History Tobacco Use Types Packs/Day Years [...] AM EST Office Visit Gastroenterology - [address] [phone] Amee Dean PA [address] [address] 03/25/2026 11:15 AM EDT Office Visit Bariatric Surgery - [place] [address] [facility] [address] [place] [address] Julian Hubbard MD [address] [place] [address] documented as of this encounter Visit Diagnoses Not on filedocumented in this encounter Care Teams Play Leader Relationship Specialty Start Date End Date Yovanny Noel MD 12[address] [facility] [address] [place] [address] PCP - General Oncology 07/25/24 documented as of this encounter
--- OUTSIDE RECORDS SUMMARY | 2025-09-08 17:26 | XMS_ITS | Encounter Summary ---
Author Organization [facility] Address [address] [place] [address] Care Team Providers Care Pre Press Manager Name Role Phone Yovanny Noel MD Primary Care Provider [phone] Encounter Details Date Type Department Care Team (Late st Contact Info) Description 08/03/2025 Results Follow-Up Gastroenterology - [address] [address] Monty Phipps MD [address] [place] [address] Social History Tobacco Use Types Packs/Day Years [...] AM EST Office Visit Gastroenterology - [address] [address] Amee Dean PA [address] [address] 03/25/2026 11:15 AM EDT Office Visit Bariatric Surgery - [place] [address] [facility] [address] [place] [address] Julian Hubbard MD [address] [place] [address] documented as of this encounter Visit Diagnoses Not on filedocumented in this encounter Care Teams Pre Press Manager Relationship Specialty Start Date End Date Yovanny Noel MD 1221 [facility] [address] [place] [address] PCP - General Oncology 07/25/24 documented as of this encounter
--- OUTSIDE RECORDS SUMMARY | 2025-09-08 17:26 | XMS_ITS | Encounter Summary ---
Author Organization [facility] Prior to 08/01/2024 Address [address] [place] [address] Care Team Providers Care Asphalt Roller Operator Name Role Phone Yovanny Noel MD Primary Care Provider Sharon meredith Reason for Visit * Reason Onset Date Comments Advice 05/27/2020 Encounter Details Date Type Department Care Team Description 05/27/2020 Telephone General Surgery - [place] 175 [facility] [address] [place] [address] Nay Edwards MS,SANTINO,JOSE [address] [address] Advice Social History Tobacco Use Types Packs/Day Years Used Date Smoking Tobacco: Former Smokeless Tobacco: Never Alcohol Use Standard Drinks/Week Comments No 0 (1 standard drink = 0.6 oz pur e alcohol) Sex Assigned at Date Recorded Not on file documented as of this encounter Miscellaneous Notes * Telephone Encounter - Nay Edwards MS,SANTINO,JOSE - 05/27/2020 5:01 PM EDT Referring patient to you for med consult. She needs to lose 10 lbs to get back to her starting weight and is having trouble doing so on her own (although we do not have an updated weight on her) documented in this encounter Plan of Treatment Not on file documented as of this encounter Visit Diagnoses Not on filedocumented in this encounter Care Teams Asphalt Roller Operator Relationship Specialty Start Date End Date Yovanny Noel MD PCP - General 05/04/08 documented as of this encounter
--- OUTSIDE RECORDS SUMMARY | 2025-09-08 17:26 | XMS_ITS | Encounter Summary ---
Author Organization [facility] Address [address] [place] [address] Care Team Providers Care Escort Patients Name Role Phone Yovanny Noel MD Primary Care Provider [phone] Reason for Visit * Reason Onset Date Comments Rectal Bleeding 07/27/2025 Encounter Details Date Type Department Care Team (Late st Contact Info) Description 07/27/2025 Telephone Gastroenterology - 299 [place] 299 [facility] [address] [place] [phone] Monty Phipps MD [address] [address] Social History Tobacco Use Types Packs/Day Years [...] on file documented as of this encounter Progress Notes * Fawn Charles MA - 07/29/2025 2:01 PM EDT Called and made patient aware labs have been ordered. She will complete. * Fawn Charles MA - 07/29/2025 11:46 AM EDT patient was placed on Linzess 145mcg's at last OV Documentation Error please disregard error below * Leonor Candelaria - 07/27/2025 1:52 PM EDT Which provider do you see here? : Chichi What symptoms are you having? : Rectal bleeding When did symptoms start? : 2 weeks ago Have you been seen for this issue before? : No documented in this encounter Plan of Treatment Upcoming Encounters Date Type Department Care Team ([facility] st Contact Info) Description 10/28/2025 9:30 AM EST Office Visit Gastroenterology - 299 [facility] 299 [facility] [address] [place] [phone] Amee Dean PA 299 [facility] [address] [place] [address] 03/25/2026 11:15 AM EDT Office Visit Bariatric Surgery - [place] 175 [facility] [address] [place] [phone] Julian Hubbard MD [address] [place] [phone] documented as of this encounter Visit Diagnoses Diagnosis Chronic constipation- Primary Unspecified constipation Rectal bleeding Hemorrhage of rectum and anus documented in this encounter Care Teams Escort Patients Relationship Specialty Start Date End Date Yovnany Noel MD [address] [place] [phone] PCP - General Oncology 07/25/24 documented as of this encounter
== END 2025-09-08 13:08 | disposition home or self-care (01) ==
LOC: HO.LNP 13:07
PROVIDERS: Visit Provider Internal Medicine Medical Oncology
DX: J34.0 Abscess, furuncle and carbuncle of nose (principal)
CPT/HCPCS: 87070; 87077; 87186; 87205

== ENCOUNTER 2025-09-22 09:59 | Outpatient (AMB) | payer MEDICARE, MEDICAID, SELFPAY ==
--- OUTSIDE RECORDS SUMMARY | 2025-06-10 06:42 | XMS_ITS ---
Author Organization Yovanny Noel III, MD Address [address] [place] [address] Care Team Providers Care Geophysical Support Specialist Name Role Phone Dr. Yovanny Noel III Primary Care Provider REASON FOR VISIT needs Simvastatin 40mg # [...] Provider Diagnosis Yovanny Noel III, MD [address] [place] [address] [place] [address] 06/10/2025 Yovanny Noel Postnasal drip R09.82 Assessments [...] Provider Name:Yovanny Noel , 10/05/2025 10:30:00 AM, [address] [place] [address], [place] [address], [place], [address], Progress Notes * BURAKAgaie TDOB: [birth year] (64 yo F)Acc No.[id number]:06/10/2025 Patient: Lynnette POLLOCK :1960 A ge:64 Y S ex:Female Address:[address] [place] [phone] * Refills Refill Simvastatin Tablet, 40 MG, Orally, 90, Take 1 tablet by mouth in the evening, Once a day, 90 days, Refills=3 * true * Date: Generated for Noreen fonseca/Joel/Randysmitting on: 11/23/2024 11:02 AM EST
--- OUTSIDE RECORDS SUMMARY | 2025-06-26 05:28 | XMS_ITS ---
Author Organization Yovanny Noel III, MD Address [address] [place] [address] Care Team Providers Care Manager News Name Role Phone Dr. Yovanny Noel III Primary Care Provider [phone] REASON FOR VISIT Rx Request Social History Sex Assigned At : Social History Observation Description Sex Assigned At Female Encounters Encounter Location Date Provider Diagnosis Yovanny Noel III, MD [address] [place] [address] [place] [address] 06/26/2025 Yovanny Noel Plan Of Treatment Next Appt Details Provider Name:Yovanny Noel , 10/05/2025 10:30:00 AM, [address] [place] [address] [place], [address], Progress Notes * BURAKLynnette TDOB: [birth year] (64 yo F)Acc No.[id number]:06/26/2025 Patient: Lynnette POLLOCK :1960 A ge:64 Y S ex:Female Address:[address] [place] [phone] * true * Date: Generated for Noreen fonseca/Joel/Dannyitting on: 11/23/2024 11:00 AM EST
--- OUTSIDE RECORDS SUMMARY | 2025-07-14 04:55 | XMS_ITS ---
Author Organization Yovanny Noel III, MD Address [address] [place] [address] Care Team Providers Care Assembly Adjuster Name Role Phone Dr. Yovanny Noel III Primary Care Provider REASON FOR VISIT HUMAN RESOURCES PROFESSIONAL Form Social History Sex Assigned At : Social History Observation Description Sex Assigned At Female Encounters Encounter Location Date Provider Diagnosis Yovanny Noel III, MD [address] [place] [address] [place] [address] 07/14/2025 Yovanny Neol Plan Of Treatment Next Appt Details Provider Name:Yovanny Noel , 10/05/2025 10:30:00 AM, [address] [place] [address] [place], [address], Progress Notes * BURAKLynnette TDOB: [birth year] (64 yo F)Acc No.[id number]:07/14/2025 Patient: Lynnette POLLOCK :1960 A ge:64 Y S ex:Female Address:[address] [place] [phone] * true * Date: Generated for Noreen fonseca/Joel/Dannyitting on: 11/23/2024 11:02 AM EST
--- OUTSIDE RECORDS SUMMARY | 2025-07-28 04:43 | XMS_ITS ---
Author Organization Yovanny Noel III, MD Address [address] [facility] [address] Care Team Providers Care Engineering Lab Technician Name Role Phone Dr. Yovanny Noel III Primary Care Provider REASON FOR VISIT Message Social History Sex Assigned At : Social History Observation Description Sex Assigned At Female Encounters Encounter Location Date Provider Diagnosis Yovanny Noel III, MD [address] [place] [address] [place] [address] 07/28/2025 Yovanny Noel Plan Of Treatment Next Appt Details Provider Name:Yovanny Noel , 10/05/2025 10:30:00 AM, [address] [place] [address] [place], [address], Progress Notes * BURAKLynnette TDOB: [birth year] (64 yo F)Acc No.[id number]:07/28/2025 Patient: Lynnette POLLOCK :1960 A ge:64 Y S ex:Female Address:[address] [place] [phone] * true * Date: Generated for Noreen fonseca/Joel/Dannyitting on: 11/23/2024 11:01 AM EST
--- OUTSIDE RECORDS SUMMARY | 2025-07-29 09:53 | XMS_ITS ---
Author Organization Yovanny Noel III, MD Address [address] [place] [address] Care Team Providers Care Middle School Technology Teacher Name Role Phone Dr. Yovanny Noel III Primary Care Provider [phone] REASON FOR VISIT Verbal Orders Social History Sex Assigned At : Social History Observation Description Sex Assigned At Female Encounters Encounter Location Date Provider Diagnosis Yovanny Noel III, MD [address] [place] [address] [place] [address] 07/29/2025 Yovanny Noel Plan Of Treatment Next Appt Details Provider Name:Yovanny Noel , 10/05/2025 10:30:00 AM, [address] [place] [address] [place], [address], Progress Notes * BURAKLynnette TDOB: [birth year] (64 yo F)Acc No.[id number]:07/29/2025 Patient: Lynnette POLLOCK :1960 A ge:64 Y S ex:Female Address:[address] [place] [phone] * true * Date: Generated for Noreen fonseca/Joel/Dannyitting on: 11/23/2024 11:01 AM EST
--- OUTSIDE RECORDS SUMMARY | 2025-07-31 05:45 | XMS_ITS ---
Author Organization Yovanny Noel III, MD Address [address] [place] [place] [address] Care Team Providers Care Survey Research Manager Name Role Phone Dr. Yovanny Noel [...] daily Active Clotrimazole 1 % 1 application Electronics Engineer ally Twice a day 04/23/2025 Active Simvastatin [...] Date Provider Diagnosis Yovanny Noel III, MD [address] [place] [address] DR GARCIAJOVAN[address], YASMEEN [phone] 07/31/2025 Yovanny Noel Former smoker Z87.89 1 [...] to have postoperative pain. She is receiving [facility] physical therapy. She is encouraged to continue [...] once daily Clotrimazole 1 % 1 application Electronics Engineer ally Twice a day 04/23/2025 Simvastatin 40 [...] Provider Name:Yovanny Noel , 10/05/2025 10:30:00 AM, [address] [place] [address] [address] [address], [place], [address], Progress Notes * Lynnette MCGILL TDOB: [birth year] (64 yo F)Acc No.[id number]:07/31/2025 Progress Notes Patient: Lynnette POLLOCK Provider: Preston Noel MD :1960 A ge:64 Y S ex:Female Date:07/31/2025 Address:[address] [place], [place] [id number] Subjective: * Chief Complaints: * C hronic lumbar spine painLumbar spondylolisthesis with radiculopathyHyperlipidemiaGoiterHypertensionMorbid obesityDepressionSleep apneaStage IIIB renal diseaseSleep apnea * HPI: C OVID-19 Screening: She was discharged from the [facility] July 12, 2025 after and L5-S1 transforaminal [...] has four children, 2 of each, Emir, Fuentse, Benson, Marie. She was born in [place]. * Medications: T akingFlonase 50 MCG/ACT Suspension [...] MD Date: Generated for Noreen fonseca/Joel/Gustabo on: 11/23/2024 11:02 AM EST History and Physical Notes * [...]
--- OUTSIDE RECORDS SUMMARY | 2025-08-05 10:56 | XMS_ITS ---
Author Organization Yovanny Noel III, MD Address [address] [place] [address] Care Team Providers Care Roving Marker Name Role Phone Dr. Yovanny Noel III [...] daily Active Clotrimazole 1 % 1 application Color Stripper ally Twice a day 04/23/2025 Active Simvastatin [...] Date Provider Diagnosis Yovanny Noel III, MD [address] [place] [address] [address] [place] [address] 08/05/2025 Yovanny Noel Plan Of Treatment Next Appt Details Provider Name:Yovanny Noel , 10/05/2025 10:30:00 AM, [address] [place] [address] [place], [address], Progress Notes * Lynnette MCGILL TDOB: [birth year] (64 yo F)Acc No.[id number]:08/05/2025 Patient: Lynnette POLLOCK :1960 A ge:64 Y S ex:Female Address:[address] [place] [phone] Subjective: * Chief Complaints: * M ed [...] * Date: Generated for Noreen Stearns/Gustabo on: 11/23/2024 11:02 AM EST
--- OUTSIDE RECORDS SUMMARY | 2025-08-12 04:05 | XMS_ITS ---
Author Organization Yovanny Noel III, MD Address [address] [place] [address] Care Team Providers Care Special Education Professor Name Role Phone Dr. Yovanny Noel III Primary Care Provider [phone] REASON FOR VISIT Rx Request Social History Sex Assigned At : Social History Observation Description Sex Assigned At Female Encounters Encounter Location Date Provider Diagnosis Yovanny Noel III, MD [address] [place] [address] [place] [address] 08/12/2025 Yovanny Noel Plan Of Treatment Next Appt Details Provider Name:Yovanny Noel , 10/05/2025 10:30:00 AM, [address] [place] [address] [place], [address], Progress Notes * NANOLynnette TDOB: [birth year] (64 yo F)Acc No.[id number]:08/12/2025 Patient: Lynnette POLLOCK :1960 A ge:64 Y S ex:Female Address:[address] [place] [address] * true * Date: Generated for Noreen fonseca/Joel/Dannyitting on: 11/23/2024 11:02 AM EST
--- OUTSIDE RECORDS SUMMARY | 2025-08-12 05:51 | XMS_ITS ---
Author Organization Yovanny Noel III, MD Address [address] [place] [address] Care Team Providers Care Relief Captain Name Role Phone Dr. Yovanny Noel III Primary Care Provider [phone] Medications Medication SIG (Take, Route, Fr equency, Duration) Notes Start Date End Date Status Azithromycin 250 MG like directed Orally 2 Tablets on the first day, one tablet the rest of the days for 5 days 08/12/2025 Acti ve Social History Sex Assigned At : Social History Observation Description Sex Assigned At Female Encounters Encounter Location Date Provider Diagnosis Yovanny Noel III, MD [address] [place] [address] [place] [address] 08/12/2025 Yovanny Noel Plan Of Treatment Medication Medication Name Sig Start Date Stop Date Notes Azithromycin 250 MG like directed Orally 2 Tablets on the first day, one tablet the rest of the days for 5 days 08/12/2025 Next Appt Details Provider Name:Yovanny Noel , 10/05/2025 10:30:00 AM, [address] [place] [address] DR AUGUSTINE Porsha, [place], [address], Progress Notes * Lynnette MCGILL TDOB: [birth year] (64 yo F)Acc No.[id number]:08/12/2025 Patient: Lynnette POLLOCK :1960 A ge:64 Y S ex:Female Address:[address] [place] [phone] * Refills Start Azithromycin Tablet, 250 MG, Orally, 6, like directed, 2 Tablets on the first day, one tablet the rest of the days, 5 days, Refills=0 * true * Date: Generated for Noreen fonseca/Joel/Dannyitting on: 11/23/2024 11:00 AM EST
--- OUTSIDE RECORDS SUMMARY | 2025-09-08 05:15 | XMS_ITS ---
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 Yovanny Noel III Primary Care Provider Allergies Allergen (clinical drug ingredient) Drug/Non Drug Allergy documented on EMR Reaction Allergy Type Onset Date Status No Known Drug Allergy Unknown Drug Allergy Active Results Component Value Reference Range Notes Routine Culture (Not yet rev iewed by provider) Interpretation: Performing Lab:[facility], [address] [place] [phone] Notes/Report: LEFT NOSTRIL O:STAAUR Staphylococcus aureus Routine Culture Quant Org ID Routine Culture 2+ Clindamycin <=0.25 Erythromycin >=8 Levofloxacin 0.25 Oxacillin <=0.25 Penicillin-G >=0.5 Tetracycline <=1 Trimethoprim/Sulfamethoxazole <=10 REASON FOR VISIT Recent lumbar spine surgery, Chronic low back pain, Hyperlipidemia, Hypertension, Asthma, Lumbar radiculopathy, Morbid obesity, depression, This BP apnea chronic kidney disease Medications Medication SIG (Take, Route, Frequency, Duration) Notes Start Date End Date Status Loratadine 10 MG Take 1 tablet by paras th once daily Active Simvastatin 40 MG Take 1 tablet by paras th in the evening Orally Once a day Active Clotrimazole 1 % 1 application Externally Twice a day 04/23/2025 Active Pregabalin 75 MG 1 capsule Orally Onc e a day 01/27/2025 Active Azithromycin 250 MG like directed Orally 2 Tablets on the first day, one tablet the rest of the days 08/12/2025 Active dexAMETHasone 2 MG 1 tablet Orally teic e a day 01/27/2025 Active Senna Laxative 8.6 MG 1 tablet Orally tw ice a day 12/29/2024 Active Mupirocin 2 % 1 application Externally Twice a day for 30 days 09/08/2025 10/08/2025 Active Clopidogrel Bisulfate 75 MG TAKE 1 TABLE T BY MOUTH ONCE DAILY Orally Once a day Active Polyethylene Glycol 3350 17 GM 1 packet mixed with 8 ounces of fluid Orally Once a day Active Furosemide 40 MG 1 tablet Orally Once a day 02/15/2021 Active Montelukast Sodium 10 MG 1 tablet in the evening Orally Once a day Active Gabapentin 300 MG 1 capsule Orally thr ee times a day 01/23/2023 Active Cyclobenzaprine HCl 10 MG as directed Or ally three times a day 08/15/2022 Active K-Tab 10 MEQ 1 tablet with food Orally Once a day 02/15/2021 Active Ibuprofen 800 MG 1 tablet Orally Thre e times a day 07/28/2016 Active Combivent 18-103 MCG/ACT 2 puffs Inhalat ion Six times a day Active Advair Diskus 500-50 MCG/DOSE 1 puff Inhalation every 12 hrs Active Escitalopram Oxalate 20 MG 1 tablet Oral ly Once a day 12/29/2021 Active Pantoprazole Sodium 20 MG 1 tablet 1/2 t o 1 hour before morning meal Orally Once a day 10/27/2024 Active Meloxicam 15 MG Take 1 tablet by paras th once daily Active Metoprolol Tartrate 100 MG Take 1 tablet by mouth twice daily with food Active Flonase 50 MCG/ACT 1 spray in each nost ril Nasally Once a day 09/28/2023 Active Esomeprazole Magnesium 40 MG Take 1 capsule by mouth once daily Active Social History Tobacco Use: [...] Problem Status W/U Status Risk Notes Problem [id number] Ulcer of nose (J34.0) Active confirmed There is a small area of infection in the medial left nostril which has been bleeding. She was given mupirocin. A culture was done. There is a preliminary read that shows gram-positive cocci which is likely Staphylococcus. Vital Signs Temperature 97.3 degrees Fahrenheit 09/08/20 25 Blood pressure systolic 136 mm Hg 09/08/20 25 Blood pressure diastolic 78 mm Hg 025 Heart Rate 73 /min 09/08/2025 Height 63 in 09/08/2025 Weight 271 lbs 09/08/2025 BMI 48 kg/m2 09/08/2025 Encounters Encounter Location Date Provider Diagnosis Yovanny Noel III, MD [address] [place] [address] [place] [address] 09/08/2025 Yovanny Noel Ulcer of nose J34.0 ; Morbid obesity E66.01 ; Former smoker Z87.891 ; Other and unspecified hyperlipidemia E78.5 ; Nontoxic uninodular goiter E04.1 ; Essential hypertension I10 ; Asthma J45.909 ; De Quervain's disease (radial styloid tenosynovitis) M65.4 ; Sleep apnea in adult G47.30 ; Vitamin D deficiency E55.9 ; Reactive depression F32.9 ; CVA (cerebral vascular accident) I63.9 ; Gastro-esophageal reflux disease with esophagitis, without bleeding K21.00 and Stage 3b chronic kidney disease N18.32 Assessments Encounter Date Diagnosis (ICD Code) Assessment Notes Treatment Notes Treatment Clinical Notes 09/08/2025 Ulcer of nose (ICD-10 - J34.0) There is a small area of infection in the medial left nostril which has been bleeding. She was given mupirocin. A culture was done. There is a preliminary read that shows gram-positive cocci which is likely Staphylococcus. 09/08/2025 Morbid obesity (ICD-10 - E66.01) She continues to participate in the weight-loss program. She has lost 12 pounds since October 31, 2024. She will continue on her current therapies without change. She will be seen frequently to weigh her and form of support. 09/08/2025 Former smoker (ICD-10 - Z87.891) She is highly motivated to not smoke. We have discussed a strategy for maintenance of abstinence in times of stress and illness. 09/08/2025 Other and unspecified hyperlipidemia (ICD-10 - E78.5) Comprehensive blood work with a fasting lipid profile is being done periodically.The most recent total cholesterol was within normal limits. 09/08/2025 Nontoxic uninodular goiter (ICD-10 - E04.1) Her thyroid is not palpable today. She appears to be euthyroid. This problem will be followed closely. 09/08/2025 Essential hypertension (ICD-10 - I10) She is compliant with all of her medications but in significant pain. Her systolic blood pressure is higher than optimal. We will address this with medication, sodium restriction, weight loss and when she has recovered from surgery, physical activity. 09/08/2025 Asthma (ICD-10 - J45.909) She has bbeen free of asthma lately. There was no wheezing today. She was breathing room air comfortably. Current therapy was continued. 09/08/2025 De Quervain's disease (radial styloid tenosynovitis) (ICD-10 - M65.4) She continues to take naproxen and the pain has begun to improve. 09/08/2025 Sleep apnea in adult (ICD-10 - G47.30) She continues to use her CPAP. 09/08/2025 Vitamin D deficiency (ICD-10 - E55.9) She is continuing on vitamin D supplementation. 09/08/2025 Reactive depression (ICD-10 - F32.9) She has been taking citalopram only intermittently. She will continue to take it on a daily basis. Follow-up visit near future was scheduled. 09/08/2025 CVA (cerebral vascular accident) (ICD-10 - I63.9) She continues to have mild residual numbness in left side of her face but no muscle weakness is noted. She is able to conduct all of the activities of daily living. Her blood pressure is stable and her weight is dropping steadily. She is consuming a healthy, low-sodium diet. 09/08/2025 Gastro-esophageal reflux disease with esophagitis, without bleeding (ICD-10 - K21.00) Her reflux symptoms are well controlled with medication. She is avoiding foods and medication that stimulate acid production. 09/08/2025 Stage 3b chronic kidney disease (ICD-10 - N18.32) Her current GFR is 38. She is under the care of nephrology. Her hydrochlorothiazide was stopped. Her blood pressure was reasonable today. Plan Of Treatment Medication Medication Name Sig Start Date Stop Date Notes Loratadine 10 MG Take 1 tablet by paras th once daily Simvastatin 40 MG Take 1 tablet by paras th in the evening Orally Once a day Clotrimazole 1 % 1 application Electric Motor And Generator Assembler ally Twice a day 04/23/2025 Pregabalin 75 MG 1 capsule Orally Onc e a day 01/27/2025 Azithromycin 250 MG like directed Orally 2 Tablets on the first day, one tablet the rest of the days 08/12/2025 dexAMETHasone 2 MG 1 tablet Orally teic e a day 01/27/2025 Senna Laxative 8.6 MG 1 tablet Orally tw ice a day 12/29/2024 Mupirocin 2 % 1 application Electric Motor And Generator Assembler ally Twice a day for 30 days 09/08/2025 10/08/2025 Clopidogrel Bisulfate 75 MG TAKE 1 TABLE T BY MOUTH ONCE DAILY Orally Once a day Polyethylene Glycol 3350 17 GM 1 packet mixed with 8 ounces of fluid Orally Once a day Furosemide 40 MG 1 tablet Orally Once a day 02/15/2021 Montelukast Sodium 10 MG 1 tablet in the evening Orally Once a day Gabapentin 300 MG 1 capsule Orally thr ee times a day 01/23/2023 Cyclobenzaprine HCl 10 MG as directed Or ally three times a day 08/15/2022 K-Tab 10 MEQ 1 tablet with food O rally Once a day 02/15/2021 Ibuprofen 800 MG 1 tablet Orally Thre e times a day 07/28/2016 Combivent 18-103 MCG/ACT 2 puffs Inhalat ion Six times a day Advair Diskus 500-50 MCG/DOSE 1 puff Inh alation every 12 hrs Escitalopram Oxalate 20 MG 1 tablet Orally Once a day 12/01 Pantoprazole Sodium 20 MG 1 tablet 1/2 t o 1 hour before morning meal Orally Once a day 10/27/2024 Meloxicam 15 MG Take 1 tablet by paras th once daily Metoprolol Tartrate 100 MG Take 1 tablet by mouth twice daily with food Flonase 50 MCG/ACT 1 spray in each nost ril Nasally Once a day 09/28/2023 Esomeprazole Magnesium 40 MG Take 1 caps ule by mouth once daily Pending Test Test Name Order Date Routine Culture 09/08/2025 Next Appt Details Follow Up: As Scheduled, Alondra son: Annual Exam Provider Name:Yovanny Noel , 10/05/2025 10:30:00 AM, [address] [place] [address] [address] [place] [address], [place], [address], Progress Notes * Lynnette MCGILL TDOB: [birth year] (64 yo F)Acc No.[id number]:09/08/2025 Progress Notes Patient: Lynnette POLLOCK Provider: Preston Noel MD :1960 A ge:64 Y S ex:Female Date:09/08/2025 Address:[address] [place], [place] [id number] Subjective: * Chief Complaints: * R ecent lumbar spine surgeryChronic low back painHyperlipidemiaHypertensionAsthmaLumbar radiculopathyMorbid obesityDepressionThis BP apnea chronic kidney disease * HPI: C OVID-19 Screening: She returns for medical management. She has been having bleeding from the left nostril for several days and small amounts. On inspection there was a swollen area t of tissue in the medial nares just anterior to the septum where the skin meets the mucous membranes. This was cultured. A Gram stain showed gram-positive cocci. It is likely a chronic staphylococcal infection. She admits to having epistaxis there for 2 months. She was given mupirocin to apply to the area twice a day. She reports that her back pain after surgery is slowly improving. She is breathing comfortably today without asthma. She is going to spend [place] morning with her children. Her depression was very mild today. She is going to be seen again in October 2025. Questions H ave you had any new onset fever, chills, cough, congestion, sore throat, shortness of breath, muscle aches? N o * ROS: G eneral/Constitutional: pain L umbar spine. C hills d enies. F atigue?admits. F ever d enies. E NT: Decreased hearing d enies. R espiratory: Cough d enies. C ardiovascular: Chest pain with exertion d enies. D yspnea on exertion?denies. S hortness of breath d enies. G astrointestinal: Constipation o ccasional. D ecreased appetite d enies. D iarrhea d enies. H eartburn c ontrolled with medications. N ausea d enies. R ectal bleeding [...] pain d enies. P sychiatric: Depressed mood d enies. * Medical History: * Surgical History: h [...] is single and working at a local [employer]. She has four children, 2 of each, Emir, Fuentes, Benson, Marie. She was born in [place]. * Medications: T akingFlonase 50 MCG/ACT Suspension 1 spray in each nostril Nasally Once a day Metoprolol Tartrate 100 MG Tablet Take 1 tablet by mouth twice daily with food Pantoprazole Sodium 20 MG Tablet Delayed Release 1 tablet 1/2 to 1 hour before morning meal Orally Once a day Escitalopram Oxalate 20 MG [...] ounces of fluid Orally Once a day Clopidogrel Bisulfate 75 MG Tablet TAKE 1 [...] Take 1 tablet by mouth once daily Azithromycin 250 MG Tablet like directed Orally 2 Tablets on the first day, one tablet the rest of the days Esomeprazole Magnesium 40 MG Capsule Delayed Release Take 1 capsule by mouth once daily Meloxicam 15 MG Tablet Take 1 tablet by mouth once daily Medication List reviewed and reconciled with the patientTaking Flonase 50 MCG/ACT Suspension 1 spray in each nostril Nasally Once a day Taking Metoprolol Tartrate 100 MG Tablet Take 1 tablet by mouth twice daily with food Taking Pantoprazole Sodium 20 MG Tablet Delayed Release 1 tablet 1/2 to 1 hour before morning meal Orally Once a day Taking Escitalopram Oxalate 20 [...] of fluid Orally Once a day Taking Clopidogrel Bisulfate 75 MG Tablet TAKE [...] 1 tablet by mouth once daily Taking Azithromycin 250 MG Tablet like directed Orally 2 Tablets on the first day, one tablet the rest of the days Taking Esomeprazole Magnesium 40 MG Capsule Delayed Release Take 1 capsule by mouth once daily Taking Meloxicam 15 MG Tablet Take 1 tablet by mouth once daily Medication List reviewed and reconciled with the patient * Allergies: N o Known Drug Allergyno[Allergies Verified] Objective: * Vitals: H t: 63, Wt: 271, BMI:48, BP: 136/78, HR: 73, Temp: 97.3, Ht-cm: 160.02, Wt-k.92. * Examination: G eneral Examination: GENERAL APPEARANCE: [...] nodes,spleen normal. SKIN: n o suspicious lesions, anicteric, small ooze of blood left nostril medially where skin joint and septum. HEART: n o clicks, gallops, murmurs, or rubs, regular rhythm, S1, S2 normal, no s3, or vascular bruits. LUNGS: c lear to auscultation . BREASTS: N ot examined. ABDOMEN: b owel sounds normal, no ascites, no organomegaly, no mass: morbid obesity. RECTAL EXAM: n ot examined. MUSCULOSKELETAL: e xtremities unremarkable, no clubbing, cyanosis or edema, recent surgical scar over lumbar spine. PERIPHERAL PULSES: n ormal. NEUROLOGIC: a lert [...] her and form of support. 2 . U lcer of nose - J34.0 N otes :There is a small area of infection in the medial left nostril which has been bleeding. She was given mupirocin. A culture was done. There is a preliminary read that shows gram-positive cocci which is likely Staphylococcus. 3 . F ormer smoker - Z87.891 N otes :She is highly motivated to not smoke. We have discussed a strategy for maintenance of abstinence in times of stress and illness. 4 . O ther and unspecified hyperlipidemia [...] recovered from surgery, physical activity. 7 . A sthma - J45.909 N otes :She has bbeen free of asthma lately. There was no wheezing today. She was breathing room air comfortably. Current therapy was continued. 8 . D e Quervain's disease (radial styloid tenosynovitis) - M65.4 ?Notes :She continues to take naproxen and the pain has begun to improve. 9 . S leep apnea in adult - G47.30 N otes :She continues to use her CPAP. 1 0. V itamin D deficiency - E55.9 N otes :She is continuing on vitamin D supplementation. 1 1. R eactive depression - F32.9 N otes :She has been taking citalopram only intermittently. She will continue to take it on a daily basis. Follow-up visit near future was scheduled. 1 2. C VA (cerebral vascular accident) - I63.9 N otes :She continues to have mild residual numbness in left side of her face but no muscle weakness is noted. She is able to conduct all of the activities of daily living. Her blood pressure is stable and her weight is dropping steadily. She is consuming a healthy, low-sodium diet. 1 3. G teagan-esophageal reflux disease with esophagitis, without bleeding - K21.00 N otes :Her reflux symptoms are well controlled with medication. She is avoiding foods and medication that stimulate acid production. 1 4. S tage 3b chronic kidney disease - N18.32 N otes :Her current GFR is 38. She is under the care of nephrology. Her hydrochlorothiazide was stopped. Her blood pressure was reasonable today. Plan: * Treatment: 2. U lcer of nose L AB: Routine Culture (Collection Date & Time - 09/08/2025 11:00 AM) Value Reference Range R outine Culture 2+ - * O :STAAUR Staphylococcus aureus - * C lindamycin <=0.25 S - * E rythromycin >=8 R - * L evofloxacin 0.25 S - * O xacillin <=0.25 S - * P enicillin-G >=0.5 R - * T etracycline <=1 S - * T rimethoprim/Sulfamethoxazole <=10 S - 3.?Others? Continue Meloxicam Tablet, 15 MG, Take 1 tablet by mouth once daily;?Continue Esomeprazole Magnesium Capsule Delayed Release, 40 MG, Take 1 capsule by mouth once daily;?Continue Flonase Suspension, 50 MCG/ACT, 1 spray in each nostril, Nasally, Once a day;?Continue Metoprolol TartrateTablet, 100 MG, Take 1 tablet by mouth twice daily with food;?Continue Pantoprazole Sodium Tablet Delayed Release, 20 MG, 1 tablet 1/2 to 1 hour before morning meal, Orally, Once a day;?Continue Escitalopram Oxalate Tablet, 20 [...] in the evening, Orally, Once a day;?Continue Furosemide Tablet, 40 MG, 1 tablet, Orally, Once a day;?Continue K-Tab Tablet Extended Release, 10 MEQ, 1 tablet with food, Orally, Once a day;?Continue Cyclobenzaprine HCl Tablet, 10 MG, as directed, Orally, three times a day;?Continue Gabapentin Capsule, 300 MG, 1 capsule, Orally, three times a day;?Continue Polyethylene Glycol 3350 Packet, 17 GM, 1 packet mixed with 8 ounces of fluid, Orally, Once a day;?Continue C lopidogrel Bisulfate Tablet, 75 MG, TAKE 1 TABLET BY MOUTH ONCE DAILY, Orally, Once a day;?Continue Senna Laxative Tablet, 8.6 MG, 1 tablet, Orally, twice a day;?Continue dexAMETHasone Tablet, 2 MG, 1 tablet, Orally, teice a day;?Continue Pregabalin Capsule, 75 MG, 1 capsule, Orally,Once a day;?Continue Clotrimazole Cream, 1 %, 1 application, Externally, Twice a day;?Continue Simvastatin Tablet, 40 MG, Take 1 tablet by mouth in the evening, Orally, Once a day;?Continue Loratadine Tablet, 10 MG, Take 1 tablet by mouth once daily;?Start Mupirocin Ointment, 2 %, 1 application, Externally, Twice a day, 30 days, 15 Gram.?? * Procedure Codes: * Preventive Medicine: Counseling: [...] tobacco use and urged to quit. 1 11/09/2024 * Follow Up: A s Scheduled (Reason: Annual Exam) * Images: * Sign off status: Completed true * Provider: Preston Noel MD Date: 11/09/2024 Generated for Noreen fonseca/Joel/Dannyitting on: 11/23/2024 11:01 AM EST History and Physical Notes * [...] or vascular bruits LUNGS: clear to auscultatio n ABDOMEN: bowel sounds normal, no ascites, no organomegaly, no mass: morbid obesity NEUROLOGIC: alert and oriented, cranial nerves 2-12 grossly intact, deep tendon reflexes 2+ symmetrical, motor strength normal upper and lower extremities, sensory exam intact SKIN: no suspicious lesion s, anicteric, small ooze of blood left nostril medially where skin joint and septum PERIPHERAL PULSES: normal BREASTS: Not examined MUSCULOSKELETAL: extremities unremark able, no clubbing, cyanosis or edema, recent surgical scar over lumbar spine LYMPH NODES: no enlarged lymph no andre,spleen normal RECTAL EXAM: not examined PSYCH: alert, oriented ORAL CAVITY: normal, unremarkable
--- NOTE | 2025-09-22 10:39 | AM.OFFVISNUR ---
Intake Visit Reasons: bp check Allergies No Known Allergies Allergy (Verified 09/22/25 10:44) Nursing Note Pt arrived today with her . She has been taking all her meds as prescribed. Her bp was 185/100 and 205/115. I tiger text dr Villalobos and he agreed to send her to the ER. I walked the pt down to the er and gave report to the triage nurse. Coding
--- OUTSIDE RECORDS SUMMARY | 2025-09-22 11:00 | XMS_ITS | Encounter Summary ---
Author Organization [facility] Prior to 08/01/2024 Address [address] [place] [address] Care Team Providers Care Child Study Team Director Name Role Phone Yovanny Noel MD Primary Care Provider Sharon meredith Reason for Visit * Reason Onset Date Comments Faxed Refill 01/23/2020 Encounter Details Date Type Department Care Team Description 01/23/2020 Refill Pulmonology - [place] [address] [place] [phone] Marielena Mckeon, SCARF GLUER [address] [phone] Faxed Refill Social History Tobacco [...] MED LIST AND IS IDENTIFIED BELOW): {MED LIST:21385) Med name: Montelukast Dosage: 10 MG tab # of tablets: 30 Local pharmacy with request for 30 -day supply Instructions: Take 1 tablet by mouth once daily at bedtime Did you check the pharmacy information above?: YES Patients current insurance carrier: Payor: [employer] FFS / Plan: [facility] / Product Type: MEDICAID RISK documented in this encounter Plan of Treatment Not on file documented as of this encounter Visit Diagnoses Not on filedocumented in this encounter Care Teams Child Study Team Director Relationship Specialty Start Date End Date Yovanny Noel MD PCP - General 05/04/08 documented as of this encounter
--- OUTSIDE RECORDS SUMMARY | 2025-09-22 11:00 | XMS_ITS | Clinical Summary ---
Author Organization [facility] Prior to 08/01/2024 Address [address] [place] [address] Care Team Providers Care [employer] Redevelopment Site Manager Name Role Phone Yovanny Noel MD Primary Care Provider Unahallie lable Allergies Active Allergy Reactions Severity Noted Date Comments Tomato 02/19/2018 Citrullus Vulgaris 02/19/2018 Medications Medication Sig Dispensed Refills Start Date End Date Status gabapentin (NEURONTIN) 100 MG capsule Take 100 mg by mouth 3 times daily. 0 Active simvastatin (ZOCOR) 40 MG tablet Take 40 mg by mouth at bedtime. 0 Active metoprolol (TOPROL-XL) 50 MG 24 hr tablet Take 50 mg by mouth daily. 0 Active furosemide (LASIX) 40 MG tablet Take 40 mg by mouth daily. 0 Active hydrochlorothiazide (HYDRODIURIL) 25 MG tablet Take 25 mg by mouth daily. 0 Active omeprazole (PRILOSEC) 20 MG capsule Take 20 mg by mouth daily. 0 Active Cholecalciferol (VITAMIN D OR) Take by mouth. 0 Active Spacer/Aero-Holding Chambers (AEROCHAMBER MV) Misc 1 Device by Does not apply route 2 times daily. 1 Each 0 07/18/2018 Active hydrALAZINE (APRESOLINE) 10 MG tablet TAKE 1 TABLET BY MOUTH TWICE DAILY WITH FOOD 0 10/25/2019 Active ibuprofen (ADVIL,MOTRIN) 800 MG tablet TAKE 1 TABLET BY MOUTH THREE TIMES DAILY 0 11/13/2019 Active lisinopril (PRINIVIL,ZESTRIL) 40 MG tablet Take 40 mg by mouth daily. 0 01/04/2020 Active fluticasone (FLONASE) 50 MCG/ACT nasal sprayIndications:Mo derate persistent asthma without complication 2 Sprays by Nasal route daily. Intranasal: Two sprays in each nostril once daily; once symptoms controlled reduce to 1 spray in each nostril once daily . Maintenance therapy is 1 Bottle 2 01/28/2020 Active ALBUTEROL SULFATE (PROAIR HFA) 108 (90 Base) MCG/ACT Aero SolnIndications:Mod erate persistent asthma without complication Inhale 2 Puffs into the lungs every 4 hours as needed for Cough or Wheezing. 1 Inhaler 5 01/28/2020 Active Tiotropium [place] Monohydrate (SPIRIVA RESPIMAT) 1.25 MCG/ACT Aero SolnIndications:Mod erate persistent asthma without complication Inhale 1 Puff into the lungs daily. Maintenance inhaler: Take 1 puff daily. 1 Inhaler 2 01/28/2020 Active albuterol (PROVENTIL) (2.5 MG/3ML) 0.083% nebulizer solutionIndications :Moderate persistent asthma without complication Take 1 Vial by nebulization 4 times daily for 360 days. 100 Vial 2 02/18/2020 Active metoprolol (LOPRESSOR) 50 MG tablet TAKE 1 TABLET BY MOUTH TWICE DAILY DIRECTED 0 02/25/2020 Active clopidogrel (PLAVIX) 75 MG tablet TAKE 1 TABLET BY MOUTH ONCE DAILY DIRECTED 0 03/18/2020 Active loratadine (CLARITIN) 10 MG tabletIndications:O SA (obstructive sleep apnea),Morbid obesity with BMI of 50.0-59.9, adult (HCC),Hypertension, unspecified type,Moderate persistent asthma without complication Take 1 Tab by mouth daily. 30 Tab 11 03/29/2020 Active BREO ELLIPTA 200-25 MCG/INH AEROSOL POWDER,BREATH ACTIVATEDIndication s:Moderate persistent asthma without complication Inhale 1 Puff into the lungs daily. 1 Each 2 06/22/2020 Active montelukast (SINGULAIR) 10 MG tabletIndications:M oderate persistent asthma without complication Take 1 Tab by mouth at bedtime. 30 Tab 5 09/09/2020 Active thiamine 100 MG tabletIndications:T hiamine deficiency Take 1 tablet by mouth daily for 360 days. 30 tablet 11 04/27/2021 Active acetaminophen (TYLENOL) 500 MG tablet Take 2 Tablets by mouth every 8 hours for 30 days. 180 tablet 0 09/05/2021 Active Wheat Dextrin (Benefiber) Powder Take 4 g by mouth daily. 120 g 0 09/05/2021 Active polyethylene glycol (MiraLax) 17 g packet Take 1 Packet by mouth daily as needed for Constipation for up to 14 days. 14 Each 0 09/05/2021 Active sucralfate (Carafate) 1 GM/10ML suspension Take 10 mL by mouth 4 times daily for 30 days. 1200 mL 0 09/13/2022 Active simethicone (MYLICON) 80 MG chewable tablet Take 1 Tablet by mouth every 6 hours as needed for Flatulence for up to 30 days. 120 Tablet 0 09/13/2022 Active topiramate (TOPAMAX) 100 MG tabletIndications:C lass 3 severe obesity with body mass index (BMI) of 45.0 to 49.9 in adult, unspecified obesity type, unspecified whether serious comorbidity present (HCC) Take 1 Tablet by mouth daily for 360 days. 90 Tablet 0 07/08/2024 Active buPROPion (WELLBUTRIN XL) 150 MG 24 hr tabletIndications:C lass 3 severe obesity with body mass index (BMI) of 45.0 to 49.9 in adult, unspecified obesity type, unspecified whether serious comorbidity present (HCC) Take 1 Tablet by mouth every morning for 90 days. 90 Tablet 0 07/08/2024 Active Active Problems Problem Noted Date Bariatric surgery status 09/27/2021 Eating disorder, unspecified 08/09/2021 Overview: Tiffanie Benitez PhD History of cerebrovascular accident (CVA ) with residual deficit 08/09/2021 Overview: Left sided weakness Left ventricular hypertrophy 05/21/2019 Pulmonary nodules 05/21/2019 DEMI (obstructive sleep apnea) mild RAQUEL 1 2 02/07/2018 Overview: [facility] Home Sleep Apnea Test: Date 04/30/2019; Wt 303#; BMI 50; RAQUEL 12, AI 2; HI 11; Unclassified apneas 2; Obstructive apneas 2; Central apneas 2; Mixed apneas 0; hypopneas 40; average oxygen saturation 95% (lowest 82% without saturations <88% for 5% or more of study) - Obstructive Sleep Apnea - mild; mostly hypopneas; without sleep related hypoventilation by 2019 home sleep apnea test. Class 3 severe obesity with body mass in dex (BMI) of 45.0 to 49.9 in adult 12/04/2017 Hyperlipidemia 12/04/2017 Nontoxic uninodular goiter 12/04/2017 Hypertension 12/04/2017 Asthma 12/04/2017 Lumbar radiculopathy w/ sciatica 018 Family History Medical History Relation Name Comments Renal Failure Father HTN, ETOH, Cancer of the Breast Mother depress ion, HTN Diabetes Son Diabetes Uncle Relation Name Status Comments Father Mother Son Alive Uncle Alive maternal Social History Tobacco Use Types Packs/Day Years Used Date Smoking Tobacco: Former Smokeless Tobacco: Never Tobacco Cessation:Counseling Given: Not Answered Alcohol Use Standard Drinks/Week Comments No 0 (1 standard drink = 0.6 oz pur e alcohol) Sex Assigned at Date Recorded Not on file Last Filed Vital Signs Vital Sign Reading Time Taken Comments Blood Pressure 145/93 07/08/2024 11:05 AM EDT Pulse 76 07/08/2024 11:05 AM EDT Temperature 36.6 C (97.8 F) 07/08/2024 11:05 AM EDT Respiratory Rate 12 05/21/2019 2:58 PM EDT Oxygen Saturation 100% 05/21/2019 2:58 PM EDT Inhaled Oxygen Concentration - - Weight 126.1 kg (278 lb) 07/08/2024 11:05 AM EDT Height 165.1 cm (5' 5 ) 07/08/2024 11:05 AM EDT Body Mass Index 46.26 07/08/2024 11:05 AM EDT Plan of Treatment Health Maintenance Due Date Last Done Comments Covid-19 Vaccine (#1) 05/10/1962 DEPRESSION SCREEN 1973 HEPATITIS C SCREENING 1979 DTAP/TDAP/TD (1 - Tdap) 1980 PNEUMOCOCCAL VACCINE FOR HIG H RISK PATIENTS (#1) 1980 CERVICAL CANCER SCREENING 1982 BASELINE HEALTH EXAM 40-64 2001 MAMMOGRAM 2001 COLON CANCER SCREENING 2011 SHINGLES VACCINE (1 of 2) 2011 BMI CHECK/ADVISE 10/01/2024 07/08/2024, 11/2023, 09/04/2023, Additional history exists DEPRESSION SCREENING/FOLLOWUP 10/01/2024 07/08/2024, 04/01/2024 SOCIAL NEEDS SCREENING 10/01/2024 INFLUENZA (#1) 2025 CHOLESTEROL SCREENING 04/22/2026 04/22/2021, 019 Care Teams [employer] Site Manager Relationship Specialty Start Date End Date Yovanny Noel MD PCP - General 05/04/08
--- OUTSIDE RECORDS SUMMARY | 2025-09-22 11:00 | XMS_ITS | Encounter Summary ---
Author Organization [facility] Prior to 08/01/2024 Address [address] [place] [address] Care Team Providers Care Community Liaison Name Role Phone Yovanny Noel MD Primary Care Provider Sharon meredith Encounter Details Date Type Department Care Team Description 05/01/2019 Orders Only Medical Records [address] [place] [id number] Josh Lee MD Social History Tobacco Use [...] on filedocumented in this encounter Care Teams Community Liaison Relationship Specialty Start Date End Date Yovanny Noel MD PCP - General 05/04/08 documented as of this encounter
--- OUTSIDE RECORDS SUMMARY | 2025-09-22 11:00 | XMS_ITS | Encounter Summary ---
Author Organization [facility] Prior to 08/01/2024 Address [address] [place] [address] Care Team Providers Care Diplomatic Courier Name Role Phone Yovanny Noel MD Primary Care Provider Sharon meredith Reason for Visit * Reason Onset Date Comments Cough 12/30/2018 allergies 12/30/2018 Encounter Details Date Type Department Care Team Description 12/30/2018 Telephone Pulmonology - [address] [place] [phone] Josh Lee MD Cough; allergies Social History [...] 12/31/2018 3:12 PM EDT Patient calling back [phone] * Telephone Encounter - Hardeep Beckford - 12/30/2018 3:07 PM EDT Patient calling back [phone]. * Telephone Encounter - Selina Lee - 12/30/2018 10:16 AM EDT Symptoms patient is presenting: Running nose, cough, Thinking its allergies If pain or injury related was it due to an accident at work or from a motor vehicle accident? NO If yes, gather 3rd libertarian insurance information Date of accident/Injury: How long has patient had these symptoms?: 2 week PCP: Dr. Yovanny Noel Payor: [facility] [employer] FFS / Plan: [facility] / Product Type: MEDICAID RISK documented in this encounter Plan of Treatment Not on file documented as of this encounter Visit Diagnoses Not on filedocumented in this encounter Care Teams Diplomatic Courier Relationship Specialty Start Date End Date Yovanny Noel MD PCP - General 05/04/08 documented as of this encounter
--- OUTSIDE RECORDS SUMMARY | 2025-09-22 11:00 | XMS_ITS | Encounter Summary ---
Author Organization [facility] Prior to 08/01/2024 Address [address] [place] [address] Care Team Providers Care Spring Assembler Name Role Phone Yovanny Noel MD Primary Care Provider Sharon meredith Encounter Details Date Type Department Care Team Description 10/15/2023 Orders Only [facility] Medical [facility] Lung Screening Program [place] [address] [facility] [address] [place] [phone] Richie Wheeler MD [address] [facility] [address] [place] [address] History of tobacco abuse Social History Tobacco Use Types Packs/Day Years [...] Name Priority Date/Time Associated Diagnosis Comments CT LOW DOSE LUNG SCREEN ANNUAL Routine 10/12/2023 History of tobacco abuse documented in this encounter Results * CT LOW DOSE LUNG SCREEN ANNUAL (10/12/2023) 10/12/[address] SCANS documented in this encounter Visit Diagnoses Diagnosis History of tobacco abuse Personal history of tobacco use, presenting hazards to health documented in this encounter Care Teams Spring Assembler Relationship Specialty Start Date End Date Yovanny Noel MD PCP - General 05/04/08 documented as of this encounter
--- OUTSIDE RECORDS SUMMARY | 2025-09-22 11:01 | XMS_ITS | Encounter Summary ---
Author Organization [facility] Prior to 08/01/2024 Address [address] [place] [address] Care Team Providers Care Production Staff Worker Name Role Phone Yovanny Noel MD Primary Care Provider Sharon meredith Encounter Details Date Type Department Care Team Description 10/02/2018 Pillow Filler Report Medical Records [address] [place] [address] Won Parker PA [address] [place] [address] Social History Tobacco Use Types Packs/Day Years [...] on filedocumented in this encounter Care Teams Production Staff Worker Relationship Specialty Start Date End Date Yovanny Noel MD PCP - General 05/04/08 documented as of this encounter
--- OUTSIDE RECORDS SUMMARY | 2025-09-22 11:01 | XMS_ITS | Clinical Summary ---
Author Organization [facility] Address [address] [place] [address] Phone Care Team Providers Care Floral Designer Salesperson Name Role Phone Yovanny Noel MD Primary Care Provider [phone] Allergies Active Allergy Reactions Criticality Noted Date [...] DAILY. STOP POTASSIUM SUPPLEMENT. 1 Active Tiotropium [place] Monohydrate 1.25 MCG/ACT aerosol solution Inhale 1 [...] sleep apnea syndrome 02/07/2018 Overview (03/26/2021): [facility] Home Sleep Apnea Test: Date 04/30/2019; [...] this topic Insurance Medicare Medicaid [place] Medicaid [place] Medicare Care Teams Floral Designer Salesperson Relationship Specialty Start Date End Date Yovanny Noel MD [address] [place] [address] , [address] [place] [address] PCP - General Medical Oncology 01/18/24
--- OUTSIDE RECORDS SUMMARY | 2025-09-22 11:01 | XMS_ITS | Data Portability ---
Author Organization [place] - [facility], Allergy Address [address] [address] Care Team Providers Care Patient Liaison Name Role Phone GHAZALA COX Primary Care [...] CT, maxillofaci al, w/o contrast 2023 024 [email or web address] [facility], [address] [place] [address], [facility] 101, [place], [address], 15:43:52 Medication Orders ipratropium bromide 21 mcg (0.03 %) nasal spray 2024 025 [facility] [address], [address] [facility], [place], [address], 08:50:35 Patient TargetsNo targets recorded. Patient Instructions Encounter Date Encounter Id Patient Instructions Last Modified By Organization Details Last Modified Time 11/12/2024 [id number] Nursing Documentation for Allergy Testing: Ordering Provider [...] SHRUTI Padilla Not available 11/12/2024 10:43:53 12/31/2024 [id number] Patient appears to have nonallergic/vasomo tor rhinitis [...] >100. 00 Very High Not Available [facility] ([facility]) [address] [place], [address], 11/14/2024 12:20:42 11/12/19 25 11/14/2024 ALLER GENS, ZONE 1 M314-YiM D pteronyssinu s <0.10 kU/L class 0 Not Available [facility] ([facility]) [address] [place], [address], 11/14/2024 12:20:42 11/12/19 25 11/14/2024 ALLER GENS, ZONE 1 X506-CtT D farinae <0.10 kU/L class 0 Not Available [facility] ([facility]) [address] [place], [address], 11/14/2024 12:20:42 11/12/19 25 11/14/2024 ALLER GENS, ZONE 1 Z613-ZiZ CAT dander <0.10 kU/L class 0 Not Available [facility] ([facility]) [address] [place], [address], 11/14/2024 12:20:42 11/12/19 25 11/14/2024 ALLER GENS, ZONE 1 V594-QpS dog dander <0.10 kU/L class 0 Not Available [facility] ([facility]) [address] [place], [address], 11/14/2024 12:20:42 11/12/19 25 11/14/2024 ALLER GENS, ZONE 1 c019-BlP bermuda grass <0.10 kU/L class 0 Not Available [facility] ([facility]) [address] [place], [address], 11/14/2024 12:20:42 11/12/19 25 11/14/2024 ALLER GENS, ZONE 1 c113-SmF bluegrass, tiffaniey 0.14 kU/L class 0/I abnormal Not Available [facility] ([facility]) [address] [place], [address], 11/14/2024 12:20:42 11/12/19 25 11/14/2024 ALLER GENS, ZONE 1 e838-BnT bahia grass <0.10 kU/L class 0 Not Available [facility] ([facility]) [address] [facility], [place], [address], 11/14/2024 12:20:42 11/12/19 25 11/14/2024 ALLER GENS, ZONE 1 B967-XqE cockroach, djiboutian <0.10 kU/L class 0 Not Available [facility] ([facility]) [address] [place], [address], 11/14/2024 12:20:42 11/12/19 25 11/14/2024 ALLER GENS, ZONE 1 B111-PiE penicillium chrysogen <0.10 kU/L class 0 Not Available [facility] ([facility]) [address] [place], [address], 11/14/2024 12:20:42 11/12/19 25 11/14/2024 ALLER GENS, ZONE 1 D663-JhI cladosporium herbarum <0.10 kU/L class 0 Not Available [facility] ([facility]) [address] [place], [address], 11/14/2024 12:20:42 11/12/19 25 11/14/2024 ALLER GENS, ZONE 1 G855-AqO aspergillus fumigatus <0.10 kU/L class 0 Not Available [facility] ([facility]) [address] [place], [address], 11/14/2024 12:20:42 11/12/19 25 11/14/2024 ALLER GENS, ZONE 1 A463-JxI mucor racemosus <0.10 kU/L class 0 Not Available [facility] ([facility]) [address] [place], [address], 11/14/2024 12:20:42 11/12/19 25 11/14/2024 ALLER GENS, ZONE 1 G078-VfM alternaria alternata <0.10 kU/L class 0 Not Available [facility] ([facility]) [address] [place], [address], 11/14/2024 12:20:42 11/12/19 25 11/14/2024 ALLER GENS, ZONE 1 N653-JrS stemphylium herbarum <0.10 kU/L class 0 Not Available [facility] ([facility]) [address] [place], [address], 11/14/2024 12:20:42 11/12/19 25 11/14/2024 ALLER GENS, ZONE 1 V399-DwH common silver birch 0.12 kU/L class 0/I abnormal Not Available [facility] ([facility]) [address] [place], [address], 11/14/2024 12:20:42 11/12/19 25 11/14/2024 ALLER GENS, ZONE 1 P306-YaX oak, white <0.10 kU/L class 0 Not Available [facility] ([facility]) [address] [place], [address], 11/14/2024 12:20:42 11/12/19 25 11/14/2024 ALLER GENS, ZONE 1 G841-CvD elm, djiboutian <0.10 kU/L class 0 Not Available [facility] ([facility]) [address] [place], [address], 11/14/2024 12:20:42 11/12/19 25 11/14/2024 ALLER GENS, ZONE 1 X429-GtM carmelita, white <0.10 kU/L class 0 Not Available [facility] ([facility]) [address] [facility], [place], [address], 11/14/2024 12:20:42 11/12/19 25 11/14/2024 ALLER GENS, ZONE 1 T124-ShR maple/box elder <0.10 kU/L class 0 Not Available [facility] ([facility]) [address] [facility], [place], [address], 11/14/2024 12:20:42 11/12/19 25 11/14/2024 ALLER GENS, ZONE 1 V044-CmT hazelnut tree <0.10 kU/L class 0 Not Available [facility] ([facility]) [address] [facility], [place], [address], 11/14/2024 12:20:42 11/12/19 25 11/14/2024 ALLER GENS, ZONE 1 Y614-OvU hickory, white <0.10 kU/L class 0 Not Available [facility] ([facility]) [address] [facility], [place], [address], 11/14/2024 12:20:42 11/12/19 25 11/14/2024 ALLER GENS, ZONE 1 D752-JmR white mulberry <0.10 kU/L class 0 Not Available [facility] ([facility]) [address] [facility], [place], [address], 11/14/2024 12:20:42 11/12/19 25 11/14/2024 ALLER GENS, ZONE 1 B252-QgU cedar, mountain <0.10 kU/L class 0 Not Available [facility] ([facility]) [address] [facility], [place], [address], 11/14/2024 12:20:42 11/12/19 25 11/14/2024 ALLER GENS, ZONE 1 L302-FjO ragweed, short 0.21 kU/L class 0/I abnormal Not Available [facility] ([facility]) [address] [facility], [place], [address], 11/14/2024 12:20:42 11/12/19 25 11/14/2024 ALLER GENS, ZONE 1 M873-HhJ mugwort <0.10 kU/L class 0 Not Available [facility] ([facility]) [address] [place], [address], 11/14/2024 12:20:42 11/12/19 25 11/14/2024 ALLER GENS, ZONE 1 W468-KfO plantain, kinyarwanda <0.10 kU/L class 0 Not Available [facility] ([facility]) [address] [place], [address], 11/14/2024 12:20:42 11/12/19 25 11/14/2024 ALLER GENS, ZONE 1 W830-FtH pigweed, common <0.10 kU/L class 0 Not Available [facility] ([facility]) [address] [facility], [place], [address], 11/14/2024 12:20:42 11/12/19 25 11/14/2024 ALLER GENS, ZONE 1 H198-NcN sheep sorrel <0.10 kU/L class 0 Not Available [facility] ([facility]) [address] [place], [address], 11/14/2024 12:20:42 11/12/19 25 11/14/2024 ALLER GENS, ZONE 1 B274-SzH nettle <0.10 kU/L class 0 Not Available [facility] ([facility]) [address] [place], [address], 11/14/2024 12:20:42 11/12/19 25 11/14/2024 IMMUN OGLOB ULIN E, TOTAL immunoglobul in E, total 2 IU/mL 6-495 below low normal Not Available [facility] ([facility]) [address] [facility], [place], [address], 11/14/2024 12:20:42 10/08/19 25 10/07/2024 CT, maxil lofac ial, w/o contr ast No observ ation record ed. [email or web address] [facility] [address], [address], 10/09/2024 09:16:23 10/08/19 25 10/07/2024 CT, maxil lofac ial, w/o contr ast No observ ation record ed. [email or web address] [facility] [address], [address], 10/09/2024 09:16:23 10/08/19 25 10/07/2024 CT, maxil lofac ial, w/o contr ast No observ ation record ed. BARCODE [facility] [address], [address], 10/08/2024 16:03:22 11/12/19 25 mary metry testi ng* No observ ation record ed. [email or web address] Not Available 2024 18:02:42 Result Notes None recorded. Problems Name Problem SNOMED Code Status Onset Date Resolution Date Notes Provider Name and Address Organization Details Recorded Time Severe obesity 79816276969 104 Active 2020 Morbid (severe) obesity due to excess calories; Note: Date Diagnosed : 06/16/2021 11:31 AM (E66.01) Not Available [facility] 4 03:25:06 Obstructi ve sleep apnea syndrome 68957046 Active 2020 Obstructi ve sleep apnea (adult) (pediatri c); Note: Date Diagnosed : 06/16/2021 11:31 AM (G47.33) Not Available [facility] 4 03:25:07 Uncomplic ated asthma 916222115 Active 2020 Unspecifi ed asthma, uncomplic ated; Note: Date Diagnosed : 06/16/2021 11:31 AM (J45.909) Not Available [facility] 4 03:25:07 Allergic rhinitis caused by pollen 06471717 Active 2020 Allergic rhinitis due to pollen; Note: Date Diagnosed : 06/16/2021 11:31 AM (J30.1) Not Available [facility] 4 03:25:06 Chronic sinusitis 91123009 Active 2023 Lilliam marin [place] - [facility] 4 11:00:07 Atypical facial pain 25790030 Active 2024 Lilliam marin, YASMEEN - [facility] 5 15:35:35 Allergic rhinitis 96292328 Active 2024 [facility]INA [facility], [facility] [address] [facility],[place] [address], [place], [address] , [facility] - [facility] 5 09:19:15 Posterior rhinorrhe a 16905745 Active 2024 FER ZAVALA MD [address] [facility],[place] [address], [place], [address] , [facility] - [facility] 5 08:49:08 Chronic rhinitis 30428443 Active 2024 FER ZAVALA MD [address] [facility],[place] [address], [place], [address] , [facility] - [facility] 5 08:49:14 Problem Notes None recorded. Procedures Surgical History Date Name Laterality Status Provider Name and Address Organization Details Recorded Time 4 JMSNasal/Sinus Endoscopy completed Lilliam Velazquez [place] - [facility] 09/19/2024 12:23:56 Imaging Results None recorded. Procedure [...] mg tablet 12/31 completed Medicati on ID: [id number] B rand Name: furosemi de Send Method: [...] mg tablet 12/31 completed Medicati on ID: [id number] B rand Name: metoprol ol tartrate Send [...] mg capsule 11/12 completed Medicati on ID: [id number] B rand Name: gabapent in Send Method: [...] %) nasal spray active Medicati on ID: [id number] B rand Name: nessasti braeden Send Method: [...] mg tablet 12/31 completed Medicati on ID: [id number] B rand Name: spironol actone S end [...] layed release 12/31 completed Medicati on ID: [id number] B rand Name: Prilosec OTC Send Method: [...] unit) capsule 12/31 completed Medicati on ID: [id number] B rand Name: Vitamin D3 Send Method: E-Prescr ibed Sub s Allowed: subs OK Medic ationGen ericName : Vitamin D3 Not Available Not Available Not Available Linzess 145 mcg capsule TAKE 1 CAPSULE BY MOUTH ONCE DAILY active Not Available Not Available No t Available Incruse Ellipta 62.5 mcg/actua tion powder for inhalatio n 12/31 completed Medicati on ID: [id number] B rand Name: Incruse Ellipta Send Method: E-Prescr ibed Sub s Allowed: subs OK Speci al Instruct ion: INHALE 1 PUFF BY MOUTH ONCE DAILY Me dication GenericN judith: Incruse Ellipta Not Available Not Available Not Available Breo Ellipta 200 mcg-25 mcg/dose powder for inhalatio n 12/31 completed Medicati on ID: [id number] B rand Name: Breo Ellipta Send Method: [...] Updated DateTime 11/04/2024 165.1 cm 45.8 kg/m2 837811.9 g Emily Ba [place] - [facility] 11/04/2024 14:55:31 Date Recorded Body height Body mass index (BMI) Body weight Oxygen saturation Heart rate Systolic And Diastolic Systolic And Diastolic Provider Name and Address Organization Details Last Updated DateTime 165.1 cm 45.8 kg/m2 601107. 9 g 98 % 76 /min 160/94 mm[Hg] 172/96 mm[Hg] ETELVINA [place], [facility] 100 [facility] 100, [place], [address], [place] - [facility] 5 10:14:58 Date Recorded Body height Body weight Provider Name and Address Organization Details Last Updated DateTime 12/31/2024 165.1 cm 061596.9 g Susan Crum [place] - [facility] 12/31/2024 08:32:27 Date Recorded Body weight Body mass index (BMI) Body height Provider Name and Address Organization Details Last Updated DateTime 09/19/2024 299215.27 g 46.4 kg/m2 165.1 cm Jessica Noé [place] - [facility] 09/19/2024 10:19:27 Social History Question Answer Notes LastModified by Organizat ion Details LastModified Time Tobacco Smoking Status Former Smoker ETELVINA MARTIN, [facility] [address] [facility],[address], [address], [facility] - [facility] [...] Disorder N Anesthesia Complications N Heart Attack ([place]) N Other Skin Condition N Diabetes N [...] ICD10 Code Diagnosis IMO Codes Diagnosis Note [id number] FER ZAVALA MD [facility] [address] [place] [address] 09/19/2024 10:02:24 09/19/2024 11:03:03 Allergic rhinitis caused by pollen 10602807 J30.1 Chronic sinusitis 891925 00 J32.9 [id number] LILLIAM VELAZQUEZ PA-C [facility] [address] [address] 11/04/2024 14:44:00 11/04/2024 15:08:34 Allergic rhinitis caused by pollen 86109609 J30.1 Atypical facial pain 713 37433 G50.1 [id number] [facility], [facility] Allergy [address] [place] [address] 11/12/2024 08:46:13 11/12/2024 10:45:34 Allergic rhinitis caused by pollen 68994068 J30.1 [id number] FER ZAVALA MD [facility] [address] [address] 12/31/2024 08:26:16 12/31/2024 08:52:00 Obstructive sleep apnea syndrome 54666410 G47.33 Posterior rhinorrhea 758 14623 R09.82 Chronic rhinitis 8355402 6 J31.0 Health Concerns Section Related Observation LastModified by Organization Detai ls LastModified Time None Recorded Concern Status LastModified by Organization Details LastModified Time None Recorded Advance Directives Directive None Recorded Payers Insurance Date Sequence Insurance Name Policy Number Policy Mei Covered Member ID Mei Member ID Guarantor Name 06/15/2025 1 [place] [employer] Lynnette Mcgill [id number] Lynnette Mcgill 01/07/2025 2 [place] [id number] Lynnette Mcgill [id number] Lynnette Mcgill Notes Date Note Type Note [...] left upper molars. FER RIVERA MD [address],[place] [address], [address], [facility] - [facility] 09/19/2024 12:45:42 11/04/2024 text/html ROS as noted in the [facility] 63 year old female presents to review CT sinus which was performed at [facility] 10/07/24. She reports that her left maxillary pain is improving. She has allergy tested scheduled. SHRAVAN JUDD MD [address] [facility],[address], [address], [facility] - [facility] 11/06/2024 08:24:49 11/12/2024 text/html Pt presents for allergy testing. Due to elevated bp due to holding her beta ghislaine and other 3 meds and having poor pfts Dr. Hernandez wanted pt to have RAST and to follow up with Dr. Rivera to figure out next steps ETELVINA LANCASTER, [facility] [address],[place] [address] [place] [address], [address], [facility] 11/12/2024 [...] -6hours per night FER RIVERA MD [address], [place], [address], [facility] 12/31/2024 08:51:29 OBGyn Episode No OBEpisode recorded.
--- OUTSIDE RECORDS SUMMARY | 2025-09-22 11:01 | XMS_ITS | Encounter Summary ---
Author Organization [employer] [facility] Prior to 08/01/2024 Address [address] [place] [address] Care Team Providers Care Station Cleaning Porter Name Role Phone Yovanny Noel MD Primary Care Provider Sharon meredith Encounter Details Date Type Department Care Team Description 09/19/2021 Orders Only Medical Records [address] [place] [id number] Julian Hubbard MD [address] [place] [address] [address] [place] [address] Social History Tobacco Use Types Packs/Day Years [...] have Coronavirus / COVID-19? No / Unsure 09/20/2021 11:49 AM EST documented as of this encounter Plan of Treatment Not on file documented as of this encounter Procedures Procedure Name Priority Date/Time Associated Diagnosis Comments OUTSIDE PATHOLOGY Routine 09/14/2021 documented in this encounter Results * OUTSIDE PATHOLOGY (09/14/2021) Julian Hubbard MD OUTSIDE LAB documented in this encounter Visit Diagnoses Not on filedocumented in this encounter Care Teams Station Cleaning Porter Relationship Specialty Start Date End Date Yovanny Noel MD PCP - General 05/04/08 documented as of this encounter
--- OUTSIDE RECORDS SUMMARY | 2025-09-22 11:01 | XMS_ITS | Encounter Summary ---
Author Organization [facility] [employer] [facility] Prior to 08/01/2024 Address [address] [place] [address] Care Team Providers Care Molded Goods Embossing Press Operator Name Role Phone Yovanny Noel MD Primary Care Provider Sharon meredith Encounter Details Date Type Department Care Team Description 01/22/2023 SCAN Medical Records [address] [place] [address] Abstract, Provider Social History Tobacco Use Types [...] on filedocumented in this encounter Care Teams Molded Goods Embossing Press Operator Relationship Specialty Start Date End Date Yovanny Noel MD PCP - General 05/04/08 documented as of this encounter
--- OUTSIDE RECORDS SUMMARY | 2025-09-22 11:01 | XMS_ITS | Encounter Summary ---
Author Organization Maintenance [facility] Prior to 08/01/2024 Address [address] [place] [address] Care Team Providers Care Senior Service Technician Name Role Phone Yovanny Noel MD Primary Care Provider Sharon meredith Encounter Details Date Type Department Care Team Description 12/15/2021 Telephone General Surgery - [place] [address] [facility] [address] [place] [address] Nay Edwards, MS,RDN,LDN [address] [facility] Harry [address] [place] [address] Social History Tobacco Use Types Packs/Day Years [...] have Coronavirus / COVID-19? Unable to assess 12/15/2021 7:42 AM EDT documented as of this encounter Plan of Treatment Not on file documented as of this encounter Visit Diagnoses Not on filedocumented in this encounter Care Teams Senior Service Technician Relationship Specialty Start Date End Date Yovanny Noel MD PCP - General 05/04/08 documented as of this encounter
--- OUTSIDE RECORDS SUMMARY | 2025-09-22 11:01 | XMS_ITS | Encounter Summary ---
Author Organization [facility] [employer] [facility] Prior to 08/01/2024 Address [address] [place] [address] Care Team Providers Care Bladder Changer Name Role Phone Yovanny Noel MD Primary Care Provider Sharon meredith Encounter Details Date Type Department Care Team Description 10/25/2017 Transfer Records Medical Records [address] [place] [id number] Abstract, Provider Social History Tobacco Use Types Packs/Day Years Used Date Smoking Tobacco: Never Assessed Sex Assigned at Date Recorded Not on file documented as of this encounter Plan of Treatment Not on file documented as of this encounter Visit Diagnoses Not on filedocumented in this encounter Care Teams Bladder Changer Relationship Specialty Start Date End Date Yovanny Noel MD PCP - General 05/04/08 documented as of this encounter
--- OUTSIDE RECORDS SUMMARY | 2025-09-22 11:01 | XMS_ITS | Encounter Summary ---
Author Organization [facility] Prior to 08/01/2024 Address [address] [place] [address] Care Team Providers Care Sound Engineering Technician Name Role Phone Yovanny Noel MD Primary Care Provider Sharon meredith Encounter Details Date Type Department Care Team Description 05/06/2012 Arts Administrator Report Medical Records [address] [place] [address] Yovanny Noel MD Social History Tobacco Use Types Packs/Day Years Used Date Smoking Tobacco: Never Assessed Sex Assigned at Date Recorded Not on file documented as of this encounter Plan of Treatment Not on file documented as of this encounter Visit Diagnoses Not on filedocumented in this encounter Care Teams Sound Engineering Technician Relationship Specialty Start Date End Date Yovanny Noel MD PCP - General 05/04/08 documented as of this encounter
--- OUTSIDE RECORDS SUMMARY | 2025-09-22 11:02 | XMS_ITS | Encounter Summary ---
Author Organization [facility] [employer] [facility] Prior to 08/01/2024 Address [address] [place] [address] Care Team Providers Care State Historical Society Director Name Role Phone Yovanny Noel MD Primary Care Provider Sharon meredith Reason for Visit * Reason Onset Date Comments Advice 09/17/2020 Encounter Details Date Type Department Care Team Description 09/17/2020 Telephone General Surgery - [place] 175 [facility] [address] [place] [address] Nay Edwards, MS,RDN,LDN 175 [facility] [address] [place] [phone] Advice Social History Tobacco Use Types [...] have Coronavirus / COVID-19? Unable to assess 09/17/2020 6:02 AM EST documented as of this encounter Miscellaneous Notes * Telephone Encounter - Julian Hubbard MD - 09/20/2020 1:03 PM EST I don't have your cell phone. I should be done by 4 today. My cell is [phone]. * Telephone Encounter - Nay Edwards MS,ELISEN,LDN - 09/17/2020 9:18 AM EST Patient with weight gain instead of loss. Not taking Topiramate you prescribed due to memory issues. Pt had a stroke recently, reports she is followed by PCP for this. RD asked pt to get a copy of PCP follow-up note from hospitalization. Would you like her to get clearance from a specialist? Pt very frustrated she cannot lose weight. She may not be getting quite enough protein, but reports she cannot eat when she is not hungry. RD is running out of ideas to help her. Pt has appt with you at theend of Aug. documented in this encounter Plan of Treatment Not on file documented as of this encounter Visit Diagnoses Not on filedocumented in this encounter Care Teams State Historical Society Director Relationship Specialty Start Date End Date Yovanny Noel MD PCP - General 05/04/08 documented as of this encounter
--- OUTSIDE RECORDS SUMMARY | 2025-09-22 11:02 | XMS_ITS | Patient Health Record ---
Author Organization Yovanny Noel III, MD Address [address] [place] [address] Care Team Providers Care Career Development Engineer Name Role Phone Dr. Yovanny Noel III [...] 1.3 BLD Negative Negative - Menstrating No Routine Culture (Not yet rev iewed by provider) Interpretation: Performing Lab:[facility] [address] [address] Notes/Report: LEFT NOSTRIL O:STAAUR Staphylococcus aureus Routine Culture Quant Org ID Routine Culture 2+ Clindamycin <=0.25 Erythromycin >=8 Levofloxacin 0.25 Oxacillin <=0.25 Penicillin-G >=0.5 Tetracycline <=1 Trimethoprim/Sulfametho xazole <=10 Complete Blood Count no Diff Reviewed date:12/27/2024 08:01:52 AM Interpretation: Performing Lab:[address] [address] Notes/Report: White Blood Count 5.0 4.8-10.8 X10*3/uL [...] Panel Reviewed date:12/27/2024 08:01:52 AM Interpretation: Performing Lab:[facility], [address] [place] [address] Notes/Report: Sodium 141 135-145 mmol/L Potassium 3.8 [...] Sensitivity Reviewed date:12/27/2024 08:01:52 AM Interpretation: Performing Lab:[facility], [address] [place] [address] Notes/Report: Troponin-I High Sensitivity < 2.7 <3.5-17.0 ng/L The Weiss high sensitivity Troponin-I results should be used in conjunction with other diagnostic information such as ECG, clinical observations and information, and patient symptoms to aid in the diagnosis of MA. B Type Natriuretic Peptide Reviewed date:12/27/2024 08:01:52 AM Interpretation: Performing Lab:[facility], [address] [place] [address] Notes/Report: B Type Natriuretic Peptide 64 <100 pg/mL US arterial duplex LE LT Reviewed date:04/03/2025 07:16:33 PM Interpretation: Performing Lab: Notes/Report: [address] [address] Ultrasound Report Signed Patient: Lynnette Mcgill MR#: [id number] : 1960 Acct:[id number] Age/Sex: 64 / F ADM Date: 03/11/25 Loc: . Attending Dr: Yovanny Noel MD Ordering Physician: Yovanny Noel MD Date of Service: 03/11/25 Procedure(s): US arterial duplex LE LT Accession Number(s): [id number] cc: Yovanny Noel MD; Franklin Eason MD [...] in OV> 03/12/25904 DD/ 1 TD/TT: 03/11/25938 Wood Filler: [place] [address] Ultrasound Report Signed Patient: Amy Mcgill MR#: [id number] : 1960 Acct:[id number] Age/Sex: 64 / F ADM Date: 03/11/25 Loc: . Attending Dr: Yovanny Noel MD Ordering Physician: Yovanny Noel MD Date of Service: 03/11/25 Procedure(s): US arterial duplex LE LT Accession Number(s): [id number] cc: Yovanny Noel MD; Franklin Eason MD [...] in OV> 03/12/25904 DD/ 1 TD/TT: 03/11/25938 Wood Filler: Basic Metabolic Panel (Not y et reviewed by provider) Interpretation: Performing Lab:[facility], [address] [place] [address] Notes/Report: Sodium 145 135-145 mmol/L Potassium 3.9 [...] yet reviewe d by provider) Interpretation: Performing Lab:[address] [address] Notes/Report: Triglycerides 61 <150 mg/dL Desirable Triglyceride: [...] with liver disease. Gram stain (Not yet reviewed by provider) Interpretation: Performing Lab:[facility], [address] [place] [address] Notes/Report: LEFT NOSTRIL Gram stain Gram stain results: Gram stain No polys Gram stain 1+ epithelial cells Gram stain 1+ Gram-positive cocci Reason For Referral Reason increased pain down right leg even at rest Diagnosis 1 Lumbar radiculopathy (M54.16) Referral Organization Yovanny Noel III, MD Referring Provider First Name Yovanny Referring Provider Last Name Sadie Referring Provider Speciality Internal M edicine Referred Provider Spine [facility] Sp [facility] Referred Provider Specialty Physical Med icine General Notes Leatha Wood [facility] 10/08 10:42:43 AM >Patient to have MRI spine done at [facility] after that result comes in ref patient back to [facility] to discuss possible spinal cord stimulator insertion, Leatha Wood [facility] 10/15/2024 02:34:17 PM >ref/demo/progress note and MRI report faxed to [facility] at regular fax number and fax # [phone] they will call patient to set up appt, Leatha Wood [facility] 10/21/2024 09:59:28 AM > I called spoke to patient she stated she has appt at [facility] for 11/19/2024 Referral Priority Routine Referral [...] the referral. Fax number confirmed and refaxedErasmo Marixa 03/05/2025 03:53:54 PM >Spoke with Marixa at [facility] stated they have reached out to patient and left a message with no call back. Dr. Noel office reached out to patient and left a message to have the patient call their office to schedule an appointment, number was left on patient voicemail., Marixa Zimmerman 03/05/2025 04:08:27 PM > spoke with patient and gave her the number to [facility]. Patient was asked to call the office back to make us aware of when the appointment is. Referral Priority Routine Referral Appointment Date 04/09/2025 Reason left leg pain Diagnosis 1 Pain of left lower e xtremity (M79.605) Referral Organization Yovanny Noel III, MD Referring Provider First Name Yovanny Referring Provider Last Name Sadie Referring Provider Speciality Internal edicine Referred Organization [facility] nter Referred Provider Franklin Eason Referred Address [address] [place] [address],[place], [place],[id number], Referred Provider Specialty Vascular Fred meg General Notes Leatha Wood CMA 02/02 01:23:25 PM > called Vilma at Dr Eason office [phone] pt has appt for a vascular ultrasound [...] Referring Provider Speciality Internal edicine Referred Provider [facility] er, Pain Management Referred Provider Specialty Pain Medicin e General Notes Leatha Wood CMA 03/10 09:50:49 AM >ref/demo/progress note /MRI faxed to Pain management at , Leatha Wood [facility] 03/17/2025 11:18:38 AM > I called pain management [phone] they stated pt has appt on 03/30/2025 12:00pm Referral Priority Routine Referral Appointment Date 03/30/2025 Reason lumbar back pain e valuate to see if can have spinal stimulator Diagnosis 1 Lumbar radiculopathy (M54.16) Referral Organization Yovanny Noel III, MD Referring Provider First Name Yovanny Referring Provider Last Name Sadie Referring Provider Speciality Internal M edicine Referred Provider [facility] Referred Provider Specialty Orthopedic S urgery General Notes Leatha Wood [facility] 04/02 11:34:20 AM >ref/demo/progress notes/x rays faxed to [facility] patient called and made aware of this and told to call to set up her appt with anthony, Leatha Wood [facility] 04/06/2025 10:33:13 AM >pt called stated she has appt today at [facility] 04/06/2025 at 3:30pm Referral Priority Routine [...] of fluid Orally Once a day Active Azithromycin 250 MG like directed Orally 2 Tablets on the first day, one tablet the rest of the days 08/12/2025 Active Flonase 50 MCG/ACT 1 [...] Problem Status W/U Status Risk Notes Problem 2359031 Former smoker (Z87.891) Active confirmed She is highly motivated to not smoke. We have discussed a strategy for maintenance of abstinence in times of stress and illness. Problem 145486757 Asthma (J45.909) Active confirmed She has bbeen free of asthma lately. There was no wheezing today. She was breathing room air comfortably. Current therapy was continued. Problem 752984708 Lumbar radiculopathy (M54.16) Active confirmed She has undergone the L5-S1 fusion without complication. She continues to have postoperative pain. She is receiving [facility] therapy. She is encouraged to continue to participate to be optimistic about the future.. Problem Hyperlipidemia (57495287) Hyperlipidemia, unspecified (E78.5) Active confirmed Comprehensive blood work with a fasting lipid profile has been ordered. No change in her medications was made today. Problem Chronic sinusitis (16691553) Chronic sinusitis, unspecified (J32.9) Active confirmed She has been given another course of Augmentin. She reports today that she is beginning to improve and brief more normally. A CT scan of her skull and sinuses showed no significant abnormality. Problem 95367892 Postnasal drip (R09.82) Active confirmed Her symptoms have resolved and she says she feels well today. She is breathing comfortably. Her medications were continued. Problem 13247953 Essential hypertension (I10) Active confirmed She is complian t with all of her medications but in significant pain. Her systolic blood pressure is higher than optimal. We will address this with medication, sodium restriction, weight loss and when she has recovered from surgery, physical activity. Problem 87618556 Other and unspecified hyperlipidemia (E78.5) Active confirmed Comprehensive blood work with a fasting lipid profile is being done periodically.The most recent total cholesterol was within normal limits. Problem CVA - Cerebrovascular accident (231568315) CVA (cerebral vascular accident) (I63.9) Active confirmed She continues t o have mild residual numbness in left side of her face but no muscle weakness is noted. She is able to conduct all of the activities of daily living. Her blood pressure is stable and her weight is dropping steadily. She is consuming a healthy, low-sodium diet. Problem 368670924147743 Left foot pain (M79.672) Active confirmed This has been present for 2 weeks. It is worse when she bears weight. The examination was unremarkable. An x-ray has been ordered. Problem 626857619 Nontoxic uninodular goiter (E04.1) Active confirmed Her thyroid i s not palpable today. She appears to be euthyroid. This problem will be followed closely. Problem 15815328 Vitamin D deficiency (E55.9) Active confirmed She is continuing on vitamin D supplementation. 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 Problem Constipation (80654417) Constipation (K59.00) Active confirmed I gave her instructions to consume one Bolla brands fairly with every breakfast. She will take Senokot twice a day. A followup was arranged. Problem 239538702 Morbid obesity (E66.01) Active confirmed She continues t o participate in the weight-loss program. She has lost 12 pounds since October 31, 2024. She will continue on her current therapies without change. She will be seen frequently to weigh her and form of support. Problem 51458427 Sleep apnea in adult (G47.30) Active confirmed She continues to use her CPAP. Problem 71375505 Reactive depression (F32.9) Active confirmed She has been taking citalopram only intermittently. She will continue to take it on a daily basis. Follow-up visit near future was scheduled. Problem 495696581 Pain of left lower extremity (M79.605) Active confirmed Problem Gastroesophageal reflux disease with esophagitis (disorder) (373412671) Gastro-esophage al reflux disease with esophagitis, without bleeding (K21.00) Active confirmed Her reflux symptoms are well controlled with medication. She is avoiding foods and medication that stimulate acid production. Problem 604544001 Stage 3b chronic kidney disease (N18.32) Active confirmed Her current GFR is 38. She is under the care of nephrology. Her hydrochlorothiaz lucie was stopped. Her blood pressure was reasonable today. Problem 49858396 Ulcer of nose (J34.0) Active confirmed There is a smal l area of infection in the medial left nostril which has been bleeding. She was given mupirocin. A culture was done. There is a preliminary read that shows gram-positive cocci which is likely Staphylococcus. Vital Signs Heart Rate 73 /min 09/08/2025 Temperature 97.3 degrees Fahrenheit 09/08/2025 Blood pressure diastolic 78 mm Hg 09/08/2025 Height 63 in 09/08/2025 Blood pressure systolic 136 mm Hg 09/08/2025 Weight 271 lbs 09/08/2025 BMI 48 kg/m2 09/08/2025 Encounters Encounter Location Date Provider Diagnosis Yovanny Noel III, MD [address] [place] [address] [address] [place], [place] [address] 10/02/2024 Yovanny Noel Asthma J45.909 ; For [place] smoker Z87.891 ; Essential hypertension I10 ; Morbid obesity E66.01 and Lumbar radiculopathy M54.16 Yovanny Noel III, MD [address] [place] [address] [place] [address] 10/15/2024 Yovanny Noel Asthma J45.909 ; For [...] Reactive depression F32.9 Yovanny Noel III, MD [address] [place] [address] [place] [address] 10/21/2024 Yovanny Noel Asthma J45.909 ; Lum bar radiculopathy M54.16 ; Morbid obesity E66.01 ; Sleep apnea in adult G47.30 ; Vitamin D deficiency E55.9 and Reactive depression F32.9 Yovanny Noel III, MD [address] [place] [address] [place] [address] 10/31/2024 Yovanny Noel Asthma J45.909 ; For [place] smoker Z87.891 ; Essential hypertension I10 ; Morbid obesity E66.01 and Lumbar radiculopathy M54.16 Yovanny Noel III, MD [address] [place] [address] [place] [address] 12/29/2024 Yovanny Noel Asthma J45.909 ; Mor bid obesity E66.01 ; Other and unspecified hyperlipidemia E78.5 ; Nontoxic uninodular goiter E04.1 ; Former smoker Z87.891 ; CVA (cerebral vascular accident) I63.9 ; Sleep apnea in adult G47.30 ; Vitamin D deficiency E55.9 ; Stage 3b chronic kidney disease N18.32 and Constipation K59.00 Yovanny Noel III, MD [address] [place] [address] [place] [address] 01/14/2025 Yovanny Noel Asthma J45.909 ; Oth er and unspecified hyperlipidemia E78.5 ; Nontoxic uninodular goiter E04.1 ; Former smoker Z87.891 ; Essential hypertension I10 ; Reactive depression F32.9 ; Vitamin D deficiency E55.9 ; Stage 3b chronic kidney disease N18.32 and Constipation K59.00 Yovanny Noel III, MD [address] [place] [address] [place] [address] 01/27/2025 Yovanny Noel Morbid obesity E66.0 1 ; Other and unspecified hyperlipidemia E78.5 ; Nontoxic uninodular goiter E04.1 ; Former smoker Z87.891 ; Essential hypertension I10 ; Asthma J45.909 ; CVA (cerebral vascular accident) I63.9 ; Sleep apnea in adult G47.30 ; Reactive depression F32.9 and Lumbar radiculopathy M54.16 Yovanny Noel III, MD [address] [place] [address] [place] [address] 03/03/2025 Yovanny Noel Left foot pain M79.6 72 ; Other and unspecified hyperlipidemia E78.5 ; Nontoxic uninodular goiter E04.1 ; Former smoker Z87.891 ; Essential hypertension I10 ; Asthma J45.909 ; Morbid obesity E66.01 ; Lumbar radiculopathy M54.16 ; Sleep apnea in adult G47.30 and Reactive depression F32.9 Yovanny Noel III, MD [address] [place] [address] [place] [address] 03/31/2025 Yovanny Noel Lumbar radiculopathy M54.16 ; Postnasal drip R09.82 ; Other and unspecified hyperlipidemia E78.5 ; Nontoxic uninodular goiter E04.1 ; Former smoker Z87.891 ; Essential hypertension I10 ; Asthma J45.909 ; Morbid obesity E66.01 ; CVA (cerebral vascular accident) I63.9 ; Stage 3b chronic kidney disease N18.32 and Sleep apnea in adult G47.30 Yovanny Noel III, MD [address] [place] [address] [place] [address] 04/15/2025 Yovanny Noel Former smoker Z87.89 1 ; Postnasal drip R09.82 ; Chronic sinusitis, unspecified J32.9 ; Other and unspecified hyperlipidemia E78.5 ; Nontoxic uninodular goiter E04.1 ; Essential hypertension I10 and Asthma J45.909 Yovanny Noel III, MD [address] [place] [address] [place] [address] 07/31/2025 Yovanny Noel Former smoker Z87.89 1 ; Morbid obesity E66.01 ; Lumbar radiculopathy M54.16 ; Other and unspecified hyperlipidemia E78.5 ; Nontoxic uninodular goiter E04.1 ; Essential hypertension I10 and CVA (cerebral vascular accident) I63.9 Yovanny Noel III, MD [address] [place] [address] [place] [address] 09/08/2025 Yovanny Noel Ulcer of nose J34.0 [...] kidney disease N18.32 Yovanny Noel III, MD [address] [place] [address] [place] [address] 10/17/2024 Yovanny Noel III, MD [address] [place] [address] [place] [address] 10/17/2024 Yovanny Noel III, MD [address] [place] [address] [place] [address] 10/21/2024 Yovanny Noel III, MD [address] [place] [address] [place] [address] 10/27/2024 Yovanny Noel III, MD [address] [place] [address] [place] [address] 03/23/2025 Yovanny Noel III, MD [address] [place] [address] [place] [address] 04/07/2025 Yovanny Noel III, MD [address] [place] [address] [place] [address] 04/23/2025 Yovanny Noel III, MD [address] [place] [address] 04/23/2025 Yovanny Noel III, MD [address] [place] [address] [place] [address] 06/08/2025 Yovanny Noel III, MD [address] [place] [address] [place] [address] 06/10/2025 Yovanny bonilla R09.8 2 Yovanny Noel III, MD [address] [place] [address] 06/26/2025 Yovanny Noel III, MD [address] [place] [address] 07/14/2025 Yovanny Noel III, MD [address] [place] [address] [place] [address] 07/28/2025 Yovanny Noel III, MD [address] [place] [address] [place] [address] 07/29/2025 Yovanny Noel III, MD [address] [place] [address] [place] [address] 08/05/2025 Yovanny Noel III, MD [address] [place] [address] [place] [address] 08/12/2025 Yovanny Noel III, MD [address] [place] [address] [place] [address] 08/12/2025 Yovanny Noel Assessments Encounter Date Diagnosis (ICD Code) Assessment Notes Treatment Notes Treatment Clinical Notes 10/02/2024 Former smoker (ICD-10 - Z87.891) She [...] weigh her and form of support. 09/08/2025 Morbid obesity (ICD-10 - E66.01) She continues to participate in the weight-loss program. She has lost 12 pounds since October 31, 2024. She will continue on her current therapies without change. She will be seen frequently to weigh her and form of support. 09/08/2025 Ulcer of nose (ICD-10 - J34.0) There is a small area of infection in the medial left nostril which has been bleeding. She was given mupirocin. A culture was done. There is a preliminary read that shows gram-positive cocci which is likely Staphylococcus. 06/10/2025 Postnasal drip (ICD-10 - R09.82) Her [...] to have postoperative pain. She is receiving [facility] therapy. She is encouraged to continue to participate to be optimistic about the future.. 09/08/2025 Former smoker (ICD-10 - Z87.891) She is highly motivated to not smoke. We have discussed a strategy for maintenance of abstinence in times of stress and illness. 10/02/2024 Morbid obesity (ICD-10 - E66.01) Her [...] total cholesterol was within normal limits. 09/08/2025 Other and unspecified hyperlipidemia (ICD-10 - [...] it remains high we'll communicate with the package drier. 03/31/2025 Former smoker (ICD-10 - Z87.891) She [...] This problem will be followed closely. 09/08/2025 Nontoxic uninodular goiter (ICD-10 - E04.1) [...] it remains high we'll communicate with the package drier. 04/15/2025 Essential hypertension (ICD-10 - I10) Her blood pressure was slightly high today. She has been compliant with her medications. He was given an appointment in the very near future to return to measure it again. If it remains high we'll communicate with the package drier. 07/31/2025 Essential hypertension (ICD-10 - I10) She is compliant with all of her medications but in significant pain. Her systolic blood pressure is higher than optimal. We will address this with medication, sodium restriction, weight loss and when she has recovered from surgery, physical activity. 09/08/2025 Essential hypertension (ICD-10 - I10) She [...] is consuming a healthy, low-sodium diet. 09/08/2025 Asthma (ICD-10 - J45.909) She has bbeen free of asthma lately. There was no wheezing today. She was breathing room air comfortably. Current therapy was continued. 10/15/2024 CVA (cerebral vascular accident) (ICD-10 - [...] weigh her and form of support. 09/08/2025 De Quervain's disease (radial styloid tenosynovitis) (ICD-10 - M65.4) She continues to take naproxen and the pain has begun to improve. 10/15/2024 De Quervain's disease (radial styloid tenosynovitis) [...] is consuming a healthy, low-sodium diet. 09/08/2025 Sleep apnea in adult (ICD-10 - G47.30) She continues to use her CPAP. 10/15/2024 Sleep apnea in adult (ICD-10 - [...] stopped. Her blood pressure was reasonable today. 09/08/2025 Vitamin D deficiency (ICD-10 - E55.9) She is continuing on vitamin D supplementation. 10/15/2024 Vitamin D deficiency (ICD-10 - E55.9) She is continuing on vitamin D supplementation. 03/31/2025 Sleep apnea in adult (ICD-10 - G47.30) She continues to use her CPAP. 09/08/2025 Reactive depression (ICD-10 - F32.9) She has been taking citalopram only intermittently. She will continue to take it on a daily basis. Follow-up visit near future was scheduled. 10/15/2024 Reactive depression (ICD-10 - F32.9) She [...] pressure was reasonable today. Plan Of Treatment Pending Test Test Name [...] Culture 09/08/2025 Next Appt Details Provider Name:Yovanny Moorerne , 10/05/2025 10:30:00 AM, [address] [place] [address] , [address], [place], [address], Insurance Providers Payer Name Payer Address Payer Phone Subscriber Number Group Number Insured Name Patient Relationship to Insured Coverage Start Date Coverage End Date MEDICARE NGS [address] [place] [address] [id number] Lynnette Mcgill Self - patient is the insured [place] [address] [place], [place] [id number] Lynnette Mcgill Self - patient is the [...]
--- OUTSIDE RECORDS SUMMARY | 2025-09-22 11:02 | XMS_ITS | Encounter Summary ---
Author Organization [facility] [employer] [facility] Prior to 08/01/2024 Address [address] [place] [address] Care Team Providers Care Teletray Operator Name Role Phone Yovanny Noel MD Primary Care Provider Sharon meredith Encounter Details Date Type Department Care Team Description 08/23/2021 Supply Analyst Report Medical Records [address] [place] [address] Center, [facility] [address] [place] [address] Social History Tobacco Use Types Packs/Day Years [...] on filedocumented in this encounter Care Teams Teletray Operator Relationship Specialty Start Date End Date Yovanny Noel MD PCP - General 05/04/08 documented as of this encounter
--- OUTSIDE RECORDS SUMMARY | 2025-09-22 11:02 | XMS_ITS | Clinical Summary ---
Author Organization [facility] Address [address] [place] [address] Phone Care Team Providers Care Barge Captain Name Role Phone Yovanny Noel MD Primary Care Provider [phone] Allergies Active Allergy Reactions Criticality Noted Date [...] DEMI (obstructive sleep apnea) 02/07/2018 Overview (08/26/2024): [facility] Home Sleep Apnea Test: Date [...] [address] [place] [address] Chronic constipation; Rectal bleeding; Prediabetes 09/08/2025 9:15 AM EST Office Visit Bariatric Surgery - [place] 175 [facility] 120 [place] [phone] Julian Hubbard MD DEMI (obstructive sleep apnea) (Primary Dx); Prediabetes; Class 3 severe obesity due to excess calories with body mass index (BMI) of 45.0 to 49.9 in adult, unspecified whether serious comorbidity present (CMS/HCC V24, CMS/[facility] V28) 09/08/2025 Results Follow-Up Gastroenterology - [address] [phone] Monty Phipps MD 08/06/2025 10:20 AM EST - 08/06/2025 11:59 PM EST Hospital [facility] [address] [phone] Encounter for screening mammogram for breast cancer Discharge Disposition: Home or Self Care 08/03/2025 11:15 AM EST Lab Draw Station - 299 [facility] 299 [facility] [place] [phone] Other constipation (Primary Dx); Hemorrhage of rectum and anus 08/03/2025 Results Follow-Up Gastroenterology - [address] [phone] Monty Phipps MD 08/03/2025 Telephone Gastroenterology - [address] [place] [phone] [place] 07/27/2025 Telephone Gastroenterology - [address] [phone] Monty Phipps MD from Last 3 Months Surgical History Surgery Date Site/Laterality Comments HYSTERECTOMY PROCEDURE: HISTORICAL HYSTERECTOMY KNEE SURGERY Left PROCEDURE: HISTORICAL KNEE SURGERY SLEEVE GASTROPLASTY 10/01/2020 - 09/30/2021 COLONOSCOPY 06/01/2023 - 06/30/2023 10 yr recall STEREOTACTIC CORE BIOPSY Right Medical History Medical History Date Comments Morbid obesity with BMI of 5 0.0-59.9, adult ([facility] V24, [facility] V28) 12/04/2017 DX:Morbid obesity wit h BMI of 50.0-59.9, adult ([facility]) Hyperlipidemia 12/04/2017 DX:Hyperlipidemi a Nontoxic uninodular goiter 12/04/2017 DX:No ntoxic uninodular goiter Hypertension 12/04/2017 DX:Hypertension Asthma 12/04/2017 DX:Asthma Lumbar radiculopathy 12/04/2017 DX:Lumbar r adiculopathy Eating disorder, unspecified 08/09/2021 DX: Eating disorder, unspecified; COMMENT: Tiffanie Benitez PhD Left ventricular hypertrophy 05/21/2019 DX: Left ventricular hypertrophy DEMI (obstructive sleep apnea) 02/07/2018 DX :DEMI (obstructive sleep apnea); COMMENT: [facility] Home Sleep Apnea Test: Date [...] Care Team (Late st Contact Info) Description 10/14/2025 3:30 PM EST Appointment [facility] CT Scan [address] [place] [address] 10/28/2025 9:30 AM EST Office Visit Gastroenterology - 299 [facility] 299 [facility] [address] [place] [phone] Amee Dean PA 299 [facility] [address] [place] [address] 03/25/2026 11:15 AM EDT Office Visit Bariatric Surgery - [place] 175 [facility] 120 [place] [phone] Julian Hubbard MD [address] [place] [phone] Health Maintenance Due Date Last Done Comments [...] Panel) 04/22/2026 04/22/2021 Breast Cancer Screening 08/06/2027 08/06/20, 05/08/2024, 06/26/2022, Additional history exists HIB Vaccines [...] 9:18 AM EST Chronic constipation Rectal bleeding HEMOGLOBIN A1C Routine 09/08/2025 9:18 AM EST Prediabetes CBC AND DIFFERENTIAL Routine 09/08/2025 9:18 AM [...] K/mcL LAB HEMETOLOGY METHOD 09/08/2025 10:24 AM [facility] RBC 3.90 3.80 - 4.80 M/mcL LAB HEMETOLOGY METHOD 09/08/2025 10:24 AM [facility] Hemoglobin 10.4(L) 11.5 - 16.0 g/dL LAB HEMETOLOGY METHOD 09/08/2025 10:24 AM [facility] Hematocrit 33.9(L) 35.0 - 47.0 % LAB HEMETOLOGY METHOD 09/08/2025 10:24 AM [facility] MCV 86.0 79.0 - 98.0 FL LAB HEMETOLOGY METHOD 09/08/2025 10:24 AM [facility] MCH 26.4(L) 27.0 - 32.0 pcg LAB HEMETOLOGY METHOD 09/08/2025 10:24 AM [facility] MCHC 30.7(L) 32.0 - 37.0 g/dL LAB HEMETOLOGY METHOD 09/08/2025 10:24 AM [facility] RDW 12.5 11.0 - 15.0 % LAB HEMETOLOGY METHOD 09/08/2025 10:24 AM [facility] Platelets 258 130 - 400 K/mcL LAB HEMETOLOGY METHOD 09/08/2025 10:24 AM [facility] MPV 11.1(H) 7.0 - 11.0 FL LAB HEMETOLOGY METHOD 09/08/2025 10:24 AM [facility] NRBC 0.0 <1.0 % LAB HEMETOLOGY METHOD 09/08/2025 10:24 AM [facility] NRBC Absolute 0.00 <0.10 K/mcL LAB HEMETOLOGY METHOD 09/08/2025 10:24 AM [facility] Neutrophils Relative 43.1 % LAB HEMETOLOGY METHOD 09/08/2025 10:24 AM [facility] Lymphocytes Relative 42.4 % LAB HEMETOLOGY METHOD 09/08/2025 10:24 AM [facility] Monocytes Relative 9.4 % LAB HEMETOLOGY METHOD 09/08/2025 10:24 AM [facility] Eosinophils Relative 3.9 % LAB HEMETOLOGY METHOD 09/08/2025 10:24 AM [facility] Basophils Relative 1.2 % LAB HEMETOLOGY METHOD 09/08/2025 10:24 AM [facility] Immature Granulocytes Relative 0.0 % LAB HEMETOLOGY METHOD 09/08/2025 10:24 AM [facility] Neutrophils Absolute 2.10 1.50 - 7.00 K/mcL LAB HEMETOLOGY METHOD 09/08/2025 10:24 AM [facility] Lymphocytes Absolute 2.07 1.00 - 5.00 K/mcL LAB HEMETOLOGY METHOD 09/08/2025 10:24 AM [facility] Monocytes Absolute 0.46 0.20 - 1.00 K/mcL LAB HEMETOLOGY METHOD 09/08/2025 10:24 AM [facility] Eosinophils Absolute 0.19 0.00 - 0.50 K/[facility] LAB HEMETOLOGY METHOD 09/08/2025 10:24 AM EST [facility] Basophils Absolute 0.06 0.00 - 0.20 K/[facility] LAB HEMETOLOGY METHOD 09/08/2025 10:24 AM EST [facility] Immature Granulocytes Absolute 0.00 0.00 - 0.03 K/[facility] LAB HEMETOLOGY METHOD 09/08/2025 10:24 AM EST [facility] Blood Venous blood specimen / Unknown Venipuncture / Unknown 09/08/2025 9:18 AM EST 09/08/2025 9:18 AM EST us Monty Phipps MD LAB BLOOD ORDERABLES Final Result Performing Organization Address City/[facility]/ZIP Co de Phone Number [facility] [address] [place] [address], [place] [phone] * Hemoglobin A1c (09/08/2025 9:18 AM EST) Hemoglobin A1C 5.2 <6.5 % LAB CHEMISTRY METHOD 09/10/2025 1:43 PM EST [facility] Mean Bld Glu Estim. 103 mg/dL LAB CHEMISTRY METHOD 09/10/2025 1:43 PM EST [facility] Blood Venous blood specimen / Unknown Venipuncture / Unknown 09/08/2025 9:18 AM EST 09/08/2025 9:18 AM EST us Julian Hubbard MD LAB BLOOD ORDERABLES Final R esult [facility] [address] [place] [address], [place] [phone] * MG Mammo Digital Screening w Nikita bilat (08/06/2025 10:47 AM EST) Anatomical Region Laterality Modality Breast Bilateral Mammography 08/06/2025 10:5 7 AM EST Impressions 08/06/2025 11:21 AM EST Benign. BI-RADS CATEGORY: 1 - NEGATIVE RECOMMENDATION: Screening bilateral mammogram is recommended in 1 year. Mammo Location: [facility], [address] [place] [address], [address], . -------- FINAL REPORT -------- Dictated By: Praful Og Dictated Date: 08/06/2025 10:57 ET Assigned Physician: Praful Og Reviewed and Electronically Signed By: Praful Og Signed Date: 08/06/2025 11:21 ET Workstation ID: [id number] Transcribed By: Self Edit Transcribed Date: 08/06/2025 [...] year. Mammo Location: [facility], [address] [place] [address], [address], . -------- FINAL REPORT -------- Dictated By: Praful Og Dictated Date: 08/06/2025 10:57 ET Assigned Physician: Praful Og Reviewed and Electronically Signed By: Praful Og Signed Date: 08/06/2025 11:21 ET Workstation ID: [id number] Transcribed By: Self Edit Transcribed Date: 08/06/2025 10:57 ET Result [facility] Self Referral Sppl IMG BI PROCEDURES Final Resul t * Depression Screening (07/08/2024) Pathologist [facility] Depression Screening Abstracted Result [facility] Historical Provider MD HEALTH MAINTENANCE Final Result * Annual BMP Blood Test (01/30/2023) Pathologist [facility] Annual BMP Blood Test Abstracted Result [facility] Historical Provider HEALTH MAINTENANCE Final Result * (ABNORMAL) Lipid panel (04/22/2021) [facility] LDL/HDL Ratio 6(A) 0 - 4 Triglycerides 159(A) 0 - 150 mg/dL Cholesterol 273(A) 0 - 200 mg/dL HDL 48 >=40 mg/dL LDL Cholesterol 194(A) 0 - 100 mg/dL Blood Venous blood specimen / Unknown Result [facility] Historical Provider LAB BLOOD ORDERABLES Frieda l Result from Last 3 Months or Most Recently Relevant to Health Maintenance Insurance MEDICAID - [place] MEDICARE Care Teams Barge Captain Relationship Specialty Start Date End Date Yovanny Noel MD [address] [address] PCP - General Oncology 07/25/24
--- OUTSIDE RECORDS SUMMARY | 2025-09-22 11:02 | XMS_ITS | Encounter Summary ---
Author Organization [facility] [employer] [facility] Prior to 08/01/2024 Address [address] [place] [address] Care Team Providers Care Synthetic Soil Blocks Pulper Name Role Phone Yovanny Noel MD Primary Care Provider Sharon meredith Encounter Details Date Type Department Care Team Description 08/23/2021 Orders Only Medical Records [address] [place] [id number] Abstract, Provider Social History Tobacco Use Types [...] on filedocumented in this encounter Care Teams Synthetic Soil Blocks Pulper Relationship Specialty Start Date End Date Yovanny Noel MD PCP - General 05/04/08 documented as of this encounter
--- OUTSIDE RECORDS SUMMARY | 2025-09-22 11:02 | XMS_ITS | Encounter Summary ---
Author Organization [employer] [facility] Prior to 08/01/2024 Address [address] [place] [address] Care Team Providers Care Hat Steamer Name Role Phone Yovanny Noel MD Primary Care Provider Sharon meredith Encounter Details Date Type Department Care Team Description 01/03/2021 Telephone General Surgery - [place] 175 [facility] [address] [place] [phone] Nay Edwards, ,RDN,LDN [address] [address] Social History Tobacco Use Types Packs/Day [...] have Coronavirus / COVID-19? Unable to assess 12/30/2020 8:00 AM EDT documented as of this encounter Miscellaneous Notes * Telephone Encounter - Julian Hubbard MD - 01/03/2021 2:48 PM EDT Will discuss with her when I see her again. Not clear in the chart. Will order before the operation. * Telephone Encounter - Nay Edwards MS,RDN,LDN - 01/03/2021 12:57 PM EDT Would you like patient to get cardiology clearance due to recent stroke? documented in this encounter Plan of Treatment Not on file documented as of this encounter Visit Diagnoses Not on filedocumented in this encounter Care Teams Hat Steamer Relationship Specialty Start Date End Date Yovanny Noel MD PCP - General 05/04/08 documented as of this encounter
--- OUTSIDE RECORDS SUMMARY | 2025-09-22 11:03 | XMS_ITS | Encounter Summary ---
Author Organization [facility] [email or web address] [facility] Prior to 08/01/2024 Address [address] [place] [address] Care Team Providers Care Production Statistical Clerk Name Role Phone Yovanny Noel MD Primary Care Provider Sharon meredith Reason for Visit * Reason Onset Date Comments Faxed Refill 06/21/2020 Encounter Details Date Type Department Care Team Description 06/21/2020 Refill Pulmonology - [place] [address] [phone] Rosalinetuanromelia Marielena, PROJECT HIRE [address] [phone] Faxed Refill Social History Tobacco Use Types Packs/Day Years Used Date Smoking Tobacco: Former Smokeless Tobacco: Never Alcohol Use Standard Drinks/Week Comments No 0 (1 standard drink = 0.6 oz pur e alcohol) Sex Assigned at Date Recorded Not on file documented as of this encounter Miscellaneous Notes * Telephone Encounter - Valentine Matt - 06/21/2020 4:33 PM EDT TONA 03/29/2020 documented in this encounter Plan of Treatment Not on file documented as of this encounter Visit Diagnoses Diagnosis Moderate persistent asthma without complication Unspecified asthma documented in this encounter Care Teams Production Statistical Clerk Relationship Specialty Start Date End Date Yvoanny Noel MD PCP - General 05/04/08 documented as of this encounter
--- OUTSIDE RECORDS SUMMARY | 2025-09-22 11:03 | XMS_ITS | Encounter Summary ---
Author Organization [facility] Address [address] [place] [address] Care Team Providers Care Business System Consultant Name Role Phone Yovanny Noel MD Primary Care Provider [phone] Encounter Details Date Type Department Care Team (Late Contact Info) Description 08/03/2025 Results Follow-Up Gastroenterology - [address] [phone] Monty Phipps MD [address] [place] [address] Social History Tobacco Use Types Packs/Day Years [...] Encounters Date Type Department Care Team (Late Contact Info) Description 10/14/2025 3:30 PM EST Appointment [facility] CT Scan [address] [place] [phone] 10/28/2025 9:30 AM EST Office Visit Gastroenterology - [address] [phone] Amee Dean PA [address] [place], [place] [address] [address] 03/25/2026 11:15 AM EDT Office Visit Bariatric Surgery - [place] 175 [facility] 120 [place] [phone] Julian Hubbard MD 230 [place] [phone] documented as of this encounter Visit Diagnoses Not on filedocumented in this encounter Care Teams Business System Consultant Relationship Specialty Start Date End Date Yovanny Noel MD 1221 [facility] [address] [place] [address] PCP - General Oncology 07/25/24 documented as of this encounter
--- OUTSIDE RECORDS SUMMARY | 2025-09-22 11:03 | XMS_ITS | Encounter Summary ---
Author Organization [facility] Address [address] [place] [address] Care Team Providers Care Applications Development Analyst Name Role Phone Yovanny Noel MD Primary Care Provider [phone] Reason for Visit * Reason Onset Date Comments Rectal Bleeding 07/27/2025 Encounter Details Date Type Department Care Team (Late st Contact Info) Description 07/27/2025 Telephone Gastroenterology - 299 [address] 299 [facility] [address] [place] [phone] Monty Phipps MD [address] [address] Social History Tobacco Use Types Packs/Day Years [...] Error please disregard error below * Leonor Bari - 07/27/2025 1:52 PM EDT Which provider do you see here? : Chichi What symptoms are you having? : Rectal bleeding When did symptoms start? : 2 weeks ago Have you been seen for this issue before? : No documented in this encounter Plan of Treatment Upcoming Encounters Date Type Department Care Team (Late st Contact Info) Description 10/14/2025 3:30 PM EST Appointment [facility] CT Scan [address] [place] [address] 10/28/2025 9:30 AM EST Office Visit Gastroenterology - 299 [facility] 299 [facility] [address] [place] [address] Amee Dean PA 299 [facility] 419 [place] [address] 03/25/2026 11:15 AM EDT Office Visit Bariatric Surgery - [place] 175 [facility] 120 [place] [phone] Julian Hubbard MD [address] [place] [address] documented as of this encounter Visit Diagnoses Diagnosis Chronic constipation- Primary Unspecified constipation Rectal bleeding Hemorrhage of rectum and anus documented in this encounter Care Teams Applications Development Analyst Relationship Specialty Start Date End Date Yovanny Noel MD [address] [address] PCP - General Oncology 07/25/24 documented as of this encounter
--- OUTSIDE RECORDS SUMMARY | 2025-09-22 11:03 | XMS_ITS | Encounter Summary ---
Author Organization [facility] Prior to 08/01/2024 Address [address] [place] [address] Care Team Providers Care Manager Ethics Name Role Phone Yovanny Noel MD Primary Care Provider Sharon meredith Reason for Visit * Reason Onset Date Comments refill request 03/04/2020 Encounter Details Date Type Department Care Team Description 03/04/2020 Refill Pulmonology - [place] [address] [phone] Mike, Marielena, FASTENER SEWING MACHINE OPERATOR [address] [phone] refill request Social History Tobacco Use Types Packs/Day Years Used Date Smoking Tobacco: Former Smokeless Tobacco: Never Alcohol Use Standard Drinks/Week Comments No 0 (1 standard drink = 0.6 oz pur e alcohol) Sex Assigned at Date Recorded Not on file documented as of this encounter Miscellaneous Notes * Telephone Encounter - Nay Lopez - 03/04/2020 1:13 PM EDT Leif- 01/28/20 Next- 03/29/20 * Telephone Encounter - Lamar Mota - 03/04/2020 12:51 PM EDT Patient would like script to be: E-PRESCRIBED/FAXED TO PHARMACY WHEN WAS THE PATIENT'S LAST APPOINTMENT WITH THE PRESCRIBING PROVIDER? 01/28/2020 Does patient have an upcoming appointment? Yes 03/29/2020 (THE MEDICATION REQUESTED IS ON THE MED LIST ABOVE) All of the medications requested were on the CURRENT MEDS list Did you check the Pharmacy information above?: YES Patient wants: 30 -day supply Is this a mail order prescription request ? NO Patients current insurance carrier is: Payor: [employer] FFS / Plan: [employer] [facility] / Product Type: MEDICAID RISK documented in this encounter Plan of Treatment Not on file documented as of this encounter Visit Diagnoses Diagnosis Moderate persistent asthma without complication Unspecified asthma documented in this encounter Care Teams Manager Ethics Relationship Specialty Start Date End Date Yovanny Noel MD PCP - General 05/04/08 documented as of this encounter
--- OUTSIDE RECORDS SUMMARY | 2025-09-22 11:03 | XMS_ITS | Encounter Summary ---
Author Organization [facility] Address [address] [place] [address] Care Team Providers Care Milk Vendor Name Role Phone Yovanny Noel MD Primary Care Provider [phone] Encounter Details Date Type Department Care Team (Late Contact Info) Description 09/08/2025 Results Follow-Up Gastroenterology - [address] [phone] Monty Phipps MD [address] [place] [address] Social History Tobacco Use Types Packs/Day Years [...] Info) Description 10/14/2025 3:[address] [facility] CT Scan [address] [place] [phone] 10/28/2025 9:30 AM EST Office Visit Gastroenterology - [address] [phone] Amee Dean PA [address] [place], [place] [address] [address] 03/25/2026 11:15 AM EDT Office Visit Bariatric Surgery - [place] 175 [facility] 120 [place] [phone] Julian Hubbard MD 230 [place] [phone] documented as of this encounter Visit Diagnoses Not on filedocumented in this encounter Care Teams Milk Vendor Relationship Specialty Start Date End Date Yovanny Noel MD 1221 [facility] 208 [place] [address] PCP - General Oncology 07/25/24 documented as of this encounter
== END 2025-09-22 11:02 | disposition home or self-care (01) ==
LOC: HO.HCS 10:02
PROVIDERS: PCP Internal Medicine Medical Oncology; Visit Provider Internal Medicine Cardiovascular Disease
DX: I10 Essential (primary) hypertension (principal)
CPT/HCPCS: 93010

== ENCOUNTER 2025-09-22 10:28 | Emergency (ER) | payer MEDICARE, MEDICAID, SELFPAY ==
--- NOTE | ~2025-09-22 | CT_ITS ---
EXAMINATION: CT HEAD WITHOUT IV CONTRAST HISTORY: hypertensive and headache. TECHNIQUE: Unenhanced helical CT of the head was performed per standard departmental protocol. Coronal and sagittal reformats of the head were also evaluated. One or more of the following techniques was used for dose reduction: Automated exposure control, adjustment of the mA and/or kV according to patient size, use of iterative reconstruction technique. DLP: 655 mGy-cm COMPARISON: There are no prior studies available for comparison. FINDINGS: BRAIN: The brain parenchyma is unremarkable. There is normal alcocer/white differentiation. The ventricular system is normal in size and configuration. There is no mass effect or midline shift. No intra- or extra-axial fluid collections are identified. SINUSES: The visualized paranasal sinuses are clear. The mastoid air cells and middle ear cavities are well pneumatized. ORBITS: The visualized orbits are unremarkable. BONES/SOFT TISSUES: The extracranial soft tissues are unremarkable. The calvarium is intact. No suspicious lytic or sclerotic lesions. CT/CT head/brain wo IV con IMPRESSION: Unremarkable unenhanced head CT. Electronically signed by: Yovanny Dilalo MD 09/22/2025 11:31 AM [facility]
[2025-09-22 10:44] VITALS: BP 222/94; PULSE 75; RESP 18; TEMP 36; O2SAT 98; BMI 44.0
--- NOTE | 2025-09-22 10:47 | ECG_ITS ---
Test Reason : hypertension Blood Pressure : */* mmHG Vent. Rate : 69 BPM Atrial Rate : 69 BPM P-R Int : 162 ms QRS Dur : 92 ms QT Int : 404 ms P-R-T Axes : 58 0 15 degrees QTcB Int : 432 ms Normal sinus rhythm Moderate voltage criteria for LVH, may be normal variant ( R in aVL , [place] product ) Borderline ECG No previous ECGs available Referred By: Kang Zhao Electronically Signed By: AP SHARIF MD
--- NOTE | 2025-09-22 10:49 | ED.GENADULT ---
HPI - General Adult General Chief complaint: General Medical Stated complaint: High Blood Pressure, Headaches Time Seen by Provider: 09/22/25 12:46 Source: patient Mode of arrival: ambulatory Limitations: no limitations History of Present Illness ED Provider: HPI narrative: 64-year-old woman with a history of hypotension, was sent in to emergency department from Dr. Villalobos's office, patient has had intermittent elevated blood pressure at home with elevated MAPs, she is complaining of a headache for the past 2 weeks, takes multiple medications with compliance, no weakness in upper or lower extremities no abdominal pain no anuria, no weakness in upper or lower extremities she reports history of mild stroke Related Data Home Medications ?Medication ?Instructions ?Recorded ?Confirmed cholecalciferol (vitamin D3) 50 50 mcg PO DAILY 10/04/20 09/07/25 mcg (2,000 unit) capsule clopidogrel 75 mg tablet 75 mg PO DAILY 10/04/20 09/07/25 lisinopril 40 mg tablet 40 mg PO DAILY 10/04/20 09/07/25 meloxicam 15 mg tablet 15 mg PO DAILY 10/04/20 09/07/25 metoprolol tartrate 50 mg tablet 50 mg PO BID 10/04/20 09/07/25 simvastatin 40 mg tablet 40 mg PO BEDTIME 10/04/20 09/07/25 escitalopram oxalate 20 mg tablet 20 mg PO DAILY 01/31/22 09/07/25 bupropion HCl 300 mg 24 hr tablet, 300 mg PO DAILY 05/29/22 09/07/25 extended release hydroxyzine HCl 50 mg tablet 50 mg PO TID 10/19/22 09/07/25 nebulizers 11/17/22 09/07/25 CPAP (CPAP Machine/Device) 07/13/23 09/07/25 trazodone 100 mg tablet 100 mg PO BID 05/02/24 09/07/25 esomeprazole magnesium 40 mg 40 mg PO DAILY 07/18/24 09/07/25 capsule,delayed release fluticasone propionate 50 1 spray intranasal DAILY 07/18/24 09/07/25 mcg/actuation nasal spray,suspension aspirin 81 mg tablet,delayed 81 mg PO DAILY 03/17/25 09/07/25 release (Adult Aspirin Regimen) Previous Rx's ?Medication ?Instructions ?Recorded fluticasone furoate 200 1 inh inhalation DAILY 30 days #60 05/24/21 mcg-vilanterol 25 mcg/dose ea inhalation powder (Breo Ellipta) loratadine 10 mg tablet 10 mg PO DAILY 30 days #30 tabs 06/16/24 albuterol sulfate 2.5 mg/3 mL 2.5 mg (3 mL) inhalation Q4H PRN 08/05/24 (0.083 %) solution for nebulization shortness of breath or wheezing 30 days #90 mL albuterol sulfate 90 mcg/actuation 2 inh inhalation Q6H PRN shortness 08/05/24 aerosol inhaler of breath or wheezing 30 days #18 grams fluticasone fur. 200 mcg-umeclid 1 inh inhalation DAILY 30 days #60 08/05/24 62.5 mcg-vilant 25 mcg ea inhalat.powder (Trelegy Ellipta) mupirocin 2 % topical ointment 1 appl topical BID 7 days #22 grams 08/05/24 oxymetazoline 0.05 % nasal spray 2 spray intranasal Q12H PRN nasal 08/05/24 (Afrin (oxymetazoline)) congestion 5 days #22 mL montelukast 10 mg tablet 10 mg PO DAILY 30 days #30 tabs 04/06/25 amlodipine 10 mg tablet 10 mg PO DAILY #90 tabs 04/27/25 hydrochlorothiazide 25 mg tablet 25 mg PO DAILY #60 tabs 04/27/25 ezetimibe 10 mg tablet 10 mg PO DAILY #90 tabs 09/07/25 spironolactone 25 mg tablet 25 mg PO BID 90 days #180 tabs 09/07/25 hydralazine 100 mg tablet 100 mg PO TID 30 days #90 tabs 09/22/25 Allergies Allergy/AdvReac Type Severity Reaction Status Date / Time No Known Allergies Allergy Verified 09/22/25 10:46 Review of Systems Constitutional: Constitutional: Reports as per 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 CVA (cerebral vascular accident) DEMI on CPAP Dyspnea Chest pressure Asthma Surgical History (Updated 09/07/25 @ 10:13 by Paula Pozo [facility]) History of back surgery History of gastric bypass History of left knee surgery History of hysterectomy Family History Family History Mother Breast cancer HTN (hypertension) Father Kidney disease HTN (hypertension) Maternal Uncle Diabetes Son Diabetes Social History Social History Alcohol intake: never Patient Tobacco Use Status: Never used Tobacco Advance Directives: No Advance Directives Information Provided: Yes Physical Exam ED Exam Exam: ?General: ??looks age appropriate ?PERRLA, EOMI, MMM, no visual field changes, Neck: Supple, no LAD ?CV: RRR, no obvious murmurs appreciated ?Resp: ?No wheezing rales rhonchi no stridor moving air well Abd: ?Bowel sounds are present, no tenderness no rebound no rigidity MSK: FROM, strength 5/5 all extremities Skin: Warm, dry, intact, ?Neuro: ?Alert and oriented x3, moving upper and lower extremities symmetrically, no obvious facial asymmetry noted, cranial nerves 2-12 intact, no dysmetria upper or lower extremities, no nystagmus horizontal or vertical Vital Signs: Vital Signs - 24 hr 09/22/25 15:09 Temperature 97.9 F Pulse Rate 78 Respiratory Rate 18 Blood Pressure 166/89 H Pulse Oximetry 100 Oxygen Delivery Method Room Air BMI result Body Mass Index 44.0 Course Course Course Narrative: RME: History old female presents to ED for uncontrolled hypertension. Patient is having headache and elevated blood pressure sent from Cardiology. Systolic blood pressure 224. EKG labs head CT scan ordered. Patient to be brought to the back. Medications Administered Discontinued Medications Generic Name Dose Route Start Last Admin Trade Name Freq PRN Reason Stop Dose Admin Hydralazine HCl 50 mg 09/22/25 14:07 09/22/25 14:16 Hydralazine Hcl 50 Mg Tablet PO 09/22/25 14:08 50 mg ONCE ONE Administration Protocol Labetalol HCl 10 mg 09/22/25 13:03 09/22/25 13:35 Labetalol Hcl 100 Mg/20 Ml Vial IVPUSH 09/22/25 13:04 10 mg ONCE ONE Administration Medical Decision Making Medical Decision Making MDM Narrative: 1:00 PM 09/22/2025 (Dr. Gomez Garcia): Sent in to emergency department by her operations and maintenance specialist, patient has been having headaches for the past 2 weeks, difficult to control hypertension, we will evaluate start workup for end-organ damage such as ACS, stroke, bleed, RACHID, cardiology recommends titrating hydralazine 100 mg t.i.d. and to observe her on medical service because of history of TIA, and we discussed low-dose IV labetalol for initial symptom control in ED 1:39 PM 09/22/2025 (Dr. Gomez Garcia): I discussed admission recommendation with patient and her family, patient told me that she is not interested in being admitted around the holiday, however something abnormal comes back on a blood work 1:40 PM 09/22/2025 (Dr. Gomez Garcia): Patient told me that she has no interested in being admitted around the holidays however she stated that if her blood work comes back abnormal she is willing to consider admission, I updated Dr. Romo, unless there are some hard findings for admission I prefer to have a patient's centered discussion as not to have her leave AMA, which may impact social perception of the patient, if she is to be discharged Dr. Villalobos recommended extra 50 mg dose of hydralazine if she has taking her other medications 2:50 PM 09/22/2025 (Dr. Gomez Garcia): Patient re-evaluated, discussed Cardiology recommendations, CT negative, no cardiac enzyme elevation, with extra dose of hydralazine her blood pressure is better, discussed medication titration as per cardiology recommendations, and I have also discussed with the patient that given the fact she has no evidence of end-organ damage, and because she is understands Cardiology recommendations and return precautions I feel comfortable with discharging her without AMA Differential Diagnosis Differential Diagnoses: The differential diagnosis associated with the presentation includes (Hypertensive emergency, stroke, subarachnoid hemorrhage, RACHID, ACS, dysrhythmia) Admission/Observation Consideration of admission/observation: Escalation of care including admission/observation considered Consult Healthcare Provider Management of the patient was discussed with: Artificial Flowers Dyer (My discussion with Dr. Villalobos: She has resistant hypertension. She was getting headaches so told her to go to ER. If no neuro symptoms/signs then can titrate hydralazine to 100 mg tid. Best to observe her on med service because she has h/o TIA.) Lab Data MDM Lab Attestation statement: I reviewed the patient's lab results. 09/22/25 13:39 09/22/25 13:39 Labs: Lab Results 09/22/25 Range/Units 13:39 WBC 4.1 L (4.8-10.8) X10*3/uL RBC 3.97 L (4.20-5.50) X10*6/uL Hgb 10.5 L (12.0-16.0) g/dl Hct 33.3 L (37.0-47.0) % MCV 83.9 (80.0-98.0) fL MCH 26.4 L (27.0-33.0) pg MCHC 31.5 (31.0-35.0) g/dl RDW 12.4 (11.0-16.0) % Plt Count 208 (160-400) X10*3/uL MPV 10.5 (9.4-12.3) fL Immature Gran % (Auto) 0.5 H (0.0-0.4) % Neut % (Auto) 45.1 (45-73) % Lymph % (Auto) 42.4 H (20-40) % Reagan % (Auto) 7.1 (2-11) % Eos % (Auto) 3.2 (0-4) % Baso % (Auto) 1.7 (0-2) % Lymph # (Auto) 1.7 (1.2-4.9) X10*3/uL Reagan # (Auto) 0.3 (0.1-1.2) X10*3/uL Eos # (Auto) 0.1 (0.0-0.4) X10*3/uL Baso # (Auto) 0.1 (0.0-0.2) X10*3/uL Abs Immat Gran (auto) 0.02 (0.00-0.03) X10*3/uL Absolute Neuts (auto) 1.8 L (2.0-8.3) x10*3/uL Absolute Nucleated RBC 0.000 (0.0-0.012) X10*3/uL Nucleated RBC % (auto) 0.0 (0.0-0.2) /100WBC Sodium 142 (135-145) mmol/L Potassium 4.2 (3.3-5.1) mmol/L Chloride 115 H (96-108) mmol/L Carbon Dioxide 21 L (22-29) mmol/L Anion Gap 10 L (12-20) BUN 32 H (9-16) mg/dL Creatinine 1.29 (0.5-1.4) mg/dL Estim Creat Clear Calc 57.9 Estimated GFR 42 Random Glucose 82 (60-115) mg/dL Calcium 9.8 (8.4-10.2) mg/dL Total Bilirubin 0.3 (0.0-1.0) mg/dL AST 22 (5-31) U/L ALT 11 (0-31) U/L Alkaline Phosphatase 105 (39-117) U/L Troponin I High Sens < 2.7 (<3.5-17.0) ng/L Total Protein 7.1 (6.5-8.0) g/dL Albumin 4.2 (3.5-5.0) g/dL Independent Interpretation I performed an independent interpretation of an: EKG (69 beats per minute borderline LVH no acute end-organ damage noted) Radiology Impression Discussion of test interpretation with radiology: I have reviewed the radiologist's reading. Radiologist Impression: CT/CT head/brain wo IV con IMPRESSION: Unremarkable unenhanced head CT. Critical Care Time Critical Care Time Critical Care Time: Yes Total Critical Care Time: 32 Attestation: Time is exclusive of separately billable procedures. Time includes: direct patient care, patient reassessment, coordination of patient care, interpretation of data (laboratory data, pulse oximetry, arterial blood gases and chest xrays), review of patient's medical records, medical consultation and documentation of patient care. Procedures excluded from critical care time: central intravenous line placement and electrocardiography. Discharge Plan Discharge Clinical Impression: Hypertensive urgency, Poorly-controlled hypertension Patient Disposition: Home, Self-Care Additional Instructions: Dr. Villalobos wanted you to be evaluated in the emergency department and then admitted for monitoring due to headache, history of TIA and blood pressure elevation that was poorly controlled, we discussed admission and you were not interested being admitted around the holidays I completely understand that, I did not feel the need for against medical advice form given the fact that you understand cardiology recommendations in the workup he had an improvement in her blood pressure, Dr. Villalobos would like you to take hydralazine 100 mg 3 times a day up from 50 mg 3 times a day, any chest pain, significant headaches vision changes weakness in upper or lower extremities any other concerns please do not hesitate to come back to the ER thereafter please make sure you have follow up with Dr. Villalobos for re-evaluation and continue monitoring her blood pressure at home Prescriptions: New hydralazine 100 mg tablet 100 mg PO TID 30 Days Qty: 90 0RF Discontinued hydralazine 50 mg tablet 50 mg PO QID No Action loratadine 10 mg tablet 10 mg PO DAILY 30 Days Qty: 30 0RF montelukast 10 mg tablet 10 mg PO DAILY 30 Days Qty: 30 0RF hydrochlorothiazide 25 mg tablet 25 mg PO DAILY Qty: 60 1RF amlodipine 10 mg tablet 10 mg PO DAILY Qty: 90 1RF spironolactone 25 mg tablet 25 mg PO BID 90 Days Qty: 180 3RF ezetimibe 10 mg tablet 10 mg PO DAILY Qty: 90 3RF clopidogrel 75 mg tablet 75 mg PO DAILY simvastatin 40 mg tablet 40 mg PO BEDTIME cholecalciferol (vitamin D3) 50 mcg (2,000 unit) capsule 50 mcg PO DAILY metoprolol tartrate 50 mg tablet 50 mg PO BID lisinopril 40 mg tablet 40 mg PO DAILY meloxicam 15 mg tablet 15 mg PO DAILY Breo Ellipta 200-25 mcg/dose blister with device 1 inh inhalation DAILY 30 Days Qty: 60 11RF escitalopram oxalate 20 mg tablet 20 mg PO DAILY bupropion HCl 300 mg tablet extended release 24 hr 300 mg PO DAILY trazodone 100 mg tablet 100 mg PO BID hydroxyzine HCl 50 mg tablet 50 mg PO TID (DME) nebulizers Misc See Rx Instructions .Route Rx Instructions: As directed mupirocin 2 % ointment 1 appl topical BID 7 Days Qty: 22 0RF oxymetazoline [Afrin (oxymetazoline)] 0.05 % spray,non-aerosol 2 spray intranasal Q12H PRN (Reason: nasal congestion) 5 Days Qty: 22 0RF Trelegy Ellipta 200-62.5-25 mcg blister with device 1 inh inhalation DAILY 30 Days Qty: 60 12RF albuterol sulfate 2.5 mg /3 mL (0.083 %) solution for nebulization 2.5 mg inhalation Q4H PRN (Reason: shortness of breath or wheezing) 30 Days Qty: 90 11RF albuterol sulfate 90 mcg/actuation HFA aerosol inhaler 2 inh inhalation Q6H PRN (Reason: shortness of breath or wheezing) 30 Days Qty: 18 12RF aspirin [Adult Aspirin Regimen] 81 mg tablet,delayed release (DR/EC) 81 mg PO DAILY (DME) CPAP Machine/Device Device See Rx Instructions .Route Rx Instructions: As directed fluticasone propionate 50 mcg/actuation spray,suspension 1 spray intranasal DAILY esomeprazole magnesium 40 mg capsule,delayed release(DR/EC) 40 mg PO DAILY Referrals: Alcon Villalobos MD [Physician, Cardiology] - 1 week Clinical Impression: Hypertensive urgency; Poorly-controlled hypertension Discharge Date/Time: 09/22/25 15:18 Print Language: Greek
--- OUTSIDE RECORDS SUMMARY | 2025-09-22 12:27 | XMS_ITS | Data Portability ---
Author Organization [place] - [facility], Allergy Address [address] [address] Care Team Providers Care Color Room Attendant Name Role Phone GHAZALA COX Primary Care Provider [phone] Assessment Encounter Date Assessment Date Assessment LastModified [...] CT sinus which was performed at [facility] 10/07/24. Reviewed with the patient that [...] CT, maxillofaci al, w/o contrast 2023 024 [email or web address] [facility], [address] [place] [address], [facility] [address], [place], [address], 15:43:52 Medication Orders ipratropium bromide 21 mcg (0.03 %) nasal spray 2024 025 [facility] [address], [address] [facility], [place], [address], 08:50:35 Patient TargetsNo targets recorded. Patient Instructions Encounter Date Encounter Id Patient Instructions Last Modified By Organization Details Last Modified Time 11/12/2024 [id number] Nursing Documentation for Allergy Testing: Ordering Provider [...] SHRUTI Padilla Not available 11/12/2024 10:43:53 12/31/2024 [id number] Patient appears to have nonallergic/vasomo tor rhinitis [...] 00 Very High Not Available [facility] ([facility]) [address] [place], [address], 11/14/2024 12:20:42 11/12/19 25 11/14/2024 ALLER GENS, ZONE 1 O317-QaA D pteronyssinu s <0.10 kU/L class 0 Not Available [facility] ([facility]) [address] [place], [address], 11/14/2024 12:20:42 11/12/19 25 11/14/2024 ALLER GENS, ZONE 1 Y105-CpU D farinae <0.10 kU/L class 0 Not Available [facility] ([facility]) [address] [place], [address], 11/14/2024 12:20:42 11/12/19 25 11/14/2024 ALLER GENS, ZONE 1 P964-BaQ CAT dander <0.10 kU/L class 0 Not Available [facility] ([facility]) [address] [place], [address], 11/14/2024 12:20:42 11/12/19 25 11/14/2024 ALLER GENS, ZONE 1 O717-ViK dog dander <0.10 kU/L class 0 Not Available [facility] ([facility]) [address] [place], [address], 11/14/2024 12:20:42 11/12/19 25 11/14/2024 ALLER GENS, ZONE 1 c835-QbH bermuda grass <0.10 kU/L class 0 Not Available [facility] ([facility]) [address] [place], [address], 11/14/2024 12:20:42 11/12/19 25 11/14/2024 ALLER GENS, ZONE 1 f973-ZcV bluegrass, tiffaniey 0.14 kU/L class 0/I abnormal Not Available [facility] ([facility]) [address] [place], [address], 11/14/2024 12:20:42 11/12/19 25 11/14/2024 ALLER GENS, ZONE 1 m546-KfV bahia grass <0.10 kU/L class 0 Not Available [facility] ([facility]) [address] [facility], [place], [address], 11/14/2024 12:20:42 11/12/19 25 11/14/2024 ALLER GENS, ZONE 1 T831-JmM cockroach, montenegrin <0.10 kU/L class 0 Not Available [facility] ([facility]) [address] [place], [address], 11/14/2024 12:20:42 11/12/19 25 11/14/2024 ALLER GENS, ZONE 1 O120-KbE penicillium chrysogen <0.10 kU/L class 0 Not Available [facility] ([facility]) [address] [place], [address], 11/14/2024 12:20:42 11/12/19 25 11/14/2024 ALLER GENS, ZONE 1 D302-QiU cladosporium herbarum <0.10 kU/L class 0 Not Available [facility] ([facility]) [address] [place], [address], 11/14/2024 12:20:42 11/12/19 25 11/14/2024 ALLER GENS, ZONE 1 A752-XrH aspergillus fumigatus <0.10 kU/L class 0 Not Available [facility] ([facility]) [address] [place], [address], 11/14/2024 12:20:42 11/12/19 25 11/14/2024 ALLER GENS, ZONE 1 F710-GqE mucor racemosus <0.10 kU/L class 0 Not Available [facility] ([facility]) [address] [place], [address], 11/14/2024 12:20:42 11/12/19 25 11/14/2024 ALLER GENS, ZONE 1 A422-LfM alternaria alternata <0.10 kU/L class 0 Not Available [facility] [address] [place], [address], 11/14/2024 12:20:42 11/12/19 25 11/14/2024 ALLER GENS, ZONE 1 F675-FeJ stemphylium herbarum <0.10 kU/L class 0 Not Available [facility] ([facility]) [address] [place], [address], 11/14/2024 12:20:42 11/12/19 25 11/14/2024 ALLER GENS, ZONE 1 L582-XdN common silver birch 0.12 kU/L class 0/I abnormal Not Available [facility] ([facility]) [address] [place], [address], 11/14/2024 12:20:42 11/12/19 25 11/14/2024 ALLER GENS, ZONE 1 V785-BtZ oak, white <0.10 kU/L class 0 Not Available [facility] ([facility]) [address] [place], [address], 11/14/2024 12:20:42 11/12/19 25 11/14/2024 ALLER GENS, ZONE 1 E529-WaA elm, montenegrin <0.10 kU/L class 0 Not Available [facility] ([facility]) [address] [place], [address], 11/14/2024 12:20:42 11/12/19 25 11/14/2024 ALLER GENS, ZONE 1 N769-XvB carmelita, white <0.10 kU/L class 0 Not Available [facility] ([facility]) [address] [facility], [place], [address], 11/14/2024 12:20:42 11/12/19 25 11/14/2024 ALLER GENS, ZONE 1 F570-NlM maple/box elder <0.10 kU/L class 0 Not Available [facility] ([facility]) [address] [facility], [place], [address], 11/14/2024 12:20:42 11/12/19 25 11/14/2024 ALLER GENS, ZONE 1 L874-KlY hazelnut tree <0.10 kU/L class 0 Not Available [facility] ([facility]) [address] [facility], [place], [address], 11/14/2024 12:20:42 11/12/19 25 11/14/2024 ALLER GENS, ZONE 1 Q779-FsJ hickory, white <0.10 kU/L class 0 Not Available [facility] ([facility]) [address] [facility], [place], [address], 11/14/2024 12:20:42 11/12/19 25 11/14/2024 ALLER GENS, ZONE 1 T724-BoG white mulberry <0.10 kU/L class 0 Not Available [facility] ([facility]) [address] [facility], [place], [address], 11/14/2024 12:20:42 11/12/19 25 11/14/2024 ALLER GENS, ZONE 1 B009-FkW cedar, mountain <0.10 kU/L class 0 Not Available [facility] ([facility]) [address] [facility], [place], [address], 11/14/2024 12:20:42 11/12/19 25 11/14/2024 ALLER GENS, ZONE 1 Q534-MuC ragweed, short 0.21 kU/L class 0/I abnormal Not Available [facility] ([facility]) [address] [facility], [place], [address], 11/14/2024 12:20:42 11/12/19 25 11/14/2024 ALLER GENS, ZONE 1 E922-XdA mugwort <0.10 kU/L class 0 Not Available [facility] ([facility]) [address] [facility] [place], [address], 11/14/2024 12:20:42 11/12/19 25 11/14/2024 ALLER GENS, ZONE 1 P771-NmG plantain, malay <0.10 kU/L class 0 Not Available [facility] ([facility]) [address] [facility] [place], [address], 11/14/2024 12:20:42 11/12/19 25 11/14/2024 ALLER GENS, ZONE 1 F982-HnI pigweed, common <0.10 kU/L class 0 Not Available [facility] ([facility]) [address] [facility], [place], [address], 11/14/2024 12:20:42 11/12/19 25 11/14/2024 ALLER GENS, ZONE 1 U573-HgL sheep sorrel <0.10 kU/L class 0 Not Available [facility] ([facility]) [address] [place], [address], 11/14/2024 12:20:42 11/12/19 25 11/14/2024 ALLER GENS, ZONE 1 Y423-AzF nettle <0.10 kU/L class 0 Not Available [facility] ([facility]) [address] [place], [address], 11/14/2024 12:20:42 11/12/19 25 11/14/2024 IMMUN OGLOB ULIN E, TOTAL immunoglobul in E, total 2 IU/mL 6-495 below low normal Not Available [facility] ([facility]) [address] [facility], [place], [address], 11/14/2024 12:20:42 10/08/19 25 10/07/2024 CT, maxil lofac ial, w/o contr ast No observ ation record ed. [email or web address] [facility] [address], [address], 10/09/2024 09:16:23 10/08/19 25 10/07/2024 CT, maxil lofac ial, w/o contr ast No observ ation record ed. [email or web address] [facility] [address], [address], 10/09/2024 09:16:23 10/08/19 25 10/07/2024 CT, maxil lofac ial, w/o contr ast No observ ation record ed. BARCODE [facility] [address], [address], 10/08/2024 16:03:22 11/12/19 25 mary metry testi ng* No observ ation record ed. [email or web address] Not Available 2024 18:02:42 Result Notes None recorded. Problems Name Problem SNOMED Code Status Onset Date Resolution Date Notes Provider Name and Address Organization Details Recorded Time Severe obesity 72457464127 104 Active 2020 Morbid (severe) obesity due to excess calories; Note: Date Diagnosed : 06/16/2021 11:31 AM (E66.01) Not Available [facility] 4 03:25:06 Obstructi ve sleep apnea syndrome 44663849 Active 2020 Obstructi ve sleep apnea (adult) (pediatri c); Note: Date Diagnosed : 06/16/2021 11:31 AM (G47.33) Not Available [facility] 4 03:25:07 Uncomplic ated asthma 880743043 Active 2020 Unspecifi ed asthma, uncomplic ated; Note: Date Diagnosed : 06/16/2021 11:31 AM (J45.909) Not Available [facility] 4 03:25:07 Allergic rhinitis caused by pollen 29810152 Active 2020 Allergic rhinitis due to pollen; Note: Date Diagnosed : 06/16/2021 11:31 AM (J30.1) Not Available [facility] 4 03:25:06 Chronic sinusitis 04082803 Active 2023 Lilliam marin [place] - [facility] 4 11:00:07 Atypical facial pain 93036061 Active 2024 Lililam marin, YASMEEN - [facility] 5 15:35:35 Allergic rhinitis 91135779 Active 2024 [facility] [address] [facility],[place] [address], [place], [address] , [facility] - [facility] 5 09:19:15 Posterior rhinorrhe a 63492154 Active 2024 FER ZAVALA MD [address] [facility],[place] [address], [place], [address] , [facility] - [facility] 5 08:49:08 Chronic rhinitis 44160895 Active 2024 FER ZAVALA MD [address] [facility],[place] [address], [place], [address] , [facility] - [facility] 5 08:49:14 Problem Notes None recorded. Procedures Surgical History Date Name Laterality Status Provider Name and Address Organization Details Recorded Time 4 JMSNasal/Sinus Endoscopy completed Lilliam Velazquez [place] - [facility] 09/19/2024 12:23:56 Imaging Results None recorded. Procedure [...] mg tablet 12/31 completed Medicati on ID: [id number] B rand Name: furosemi de Send Method: [...] mg tablet 12/31 completed Medicati on ID: [id number] B rand Name: metoprol ol tartrate Send [...] mg capsule 11/12 completed Medicati on ID: [id number] B rand Name: gabapent in Send Method: [...] %) nasal spray active Medicati on ID: [id number] B rand Name: nessasti braeden Send Method: [...] mg tablet 12/31 completed Medicati on ID: [id number] B rand Name: spironol actone S end [...] layed release 12/31 completed Medicati on ID: [id number] B rand Name: Prilosec OTC Send Method: [...] unit) capsule 12/31 completed Medicati on ID: [id number] B rand Name: Vitamin D3 Send Method: E-Prescr ibed Sub s Allowed: subs OK Medic ationGen ericName : Vitamin D3 Not Available Not Available Not Available Linzess 145 mcg capsule TAKE 1 CAPSULE BY MOUTH ONCE DAILY active Not Available Not Available No t Available Incruse Ellipta 62.5 mcg/actua tion powder for inhalatio n 12/31 completed Medicati on ID: [id number] B rand Name: Incruse Ellipta Send Method: E-Prescr ibed Sub s Allowed: subs OK Speci al Instruct ion: INHALE 1 PUFF BY MOUTH ONCE DAILY Me dication GenericN judith: Incruse Ellipta Not Available Not Available Not Available Breo Ellipta 200 mcg-25 mcg/dose powder for inhalatio n 12/31 completed Medicati on ID: [id number] B rand Name: Breo Ellipta Send Method: [...] Updated DateTime 11/04/2024 165.1 cm 45.8 kg/m2 962009.9 g Emily Ba [place] - [facility] 11/04/2024 14:55:31 Date Recorded Body height Body mass index (BMI) Body weight Oxygen saturation Heart rate Systolic And Diastolic Systolic And Diastolic Provider Name and Address Organization Details Last Updated DateTime 165.1 cm 45.8 kg/m2 034260. 9 g 98 % 76 /min 160/94 mm[Hg] 172/96 mm[Hg] ETELVINA [place], [facility] 100 [facility] [address], [place], [address], [place] - [facility] 5 10:14:58 Date Recorded Body height Body weight Provider Name and Address Organization Details Last Updated DateTime 12/31/2024 165.1 cm 775605.9 g Susan Crum [place] - [facility] 12/31/2024 08:32:27 Date Recorded Body weight Body mass index (BMI) Body height Provider Name and Address Organization Details Last Updated DateTime 09/19/2024 189429.27 g 46.4 kg/m2 165.1 cm Jessica Noé [place] - [facility] 09/19/2024 10:19:27 Social History Question Answer Notes LastModified by Organizat ion Details LastModified Time Tobacco Smoking Status Former Smoker ETELVINA [place], [facility] [address] [facility],[address], [address], [facility] - [facility] 11/12/2024 09:17:45 When Did You Quit [...] ICD10 Code Diagnosis IMO Codes Diagnosis Note [id number] FER ZAVALA MD [facility] [address] [place] [address] 09/19/2024 10:02:24 09/19/2024 11:03:03 Allergic rhinitis caused by pollen 50666324 J30.1 Chronic sinusitis 494391 00 J32.9 19810 LILLIAM VELAZQUEZ PA-C [facility] [address] [address] 11/04/2024 14:44:00 11/04/2024 15:08:34 Allergic rhinitis caused by pollen 77449080 J30.1 Atypical facial pain 713 72100 G50.1 59237 [facility] Allergy [address] [place] [address] 11/12/2024 08:46:13 11/12/2024 10:45:34 Allergic rhinitis caused by pollen 53214016 J30.1 86185 FER ZAVALA MD [facility] [address] [address] 12/31/2024 08:26:16 12/31/2024 08:52:00 Obstructive sleep apnea syndrome 33151506 G47.33 Posterior rhinorrhea 758 01431 R09.82 Chronic rhinitis 0070080 6 J31.0 Health Concerns Section Related Observation LastModified by Organization Detai ls LastModified Time None Recorded Concern Status LastModified by Organization Details LastModified Time None Recorded Advance Directives Directive None Recorded Payers Insurance Date Sequence Insurance Name Policy Number Policy Mei Covered Member ID Mei Member ID Guarantor Name 06/15/2025 1 [place] [employer] Lynnette Mcgill [id number] Lynnette Mcgill 01/07/2025 2 [place] [id number] Lynnette Mcgill [id number] Lynnette Mcgill Notes Date Note Type Note [...] left upper molars. FER RIVERA MD [address] [facility] [address],[place] [address], [place], [address], [facility] - [facility] 09/19/2024 12:45:42 11/04/2024 text/html ROS as noted in the [facility] 63 year old female presents to review CT sinus which was performed at [facility] 10/07/24. She reports that her left maxillary pain is improving. She has allergy tested scheduled. SHRAVAN JUDD MD 100 [facility] [place],[address], [address], [facility] - [facility] 11/06/2024 08:24:49 11/12/2024 text/html Pt presents for allergy testing. Due to elevated bp due to holding her beta ghislaine and other 3 meds and having poor pfts Dr. Hernandez wanted pt to have RAST and to follow up with Dr. Rivera to figure out next steps ETELVINA [place], [facility] [address] [facility] [address] [address],[place] [address] [place] [address], [address], [facility] 11/12/2024 10:45:27 12/31/2024 text/html Patient with [...] -6hours per night FER RIVERA MD [address] [facility] [address], [place], [address], [facility] 12/31/2024 08:51:29 OBGyn Episode No OBEpisode recorded.
[2025-09-22 12:47] VITALS: BP 197/91
[2025-09-22 13:40] VITALS: BP 200/100; PULSE 70; RESP 20; O2SAT 99
[2025-09-22 13:42] LABS: MANUAL DIFF FLAG NO
[2025-09-22 13:45] LABS: Hematocrit 33.3 % (37.0-47.0); Hemoglobin 10.5 g/dl (12.0-16.0); Imm Gran Abs Auto 0.02 X10*3/uL (0.00-0.03); Imm Gran Pct Auto 0.5 % (0.0-0.4); Lymphocytes Absolute Auto 1.7 X10*3/uL (1.2-4.9); Mean Corpuscular HGB Conc 31.5 g/dl (31.0-35.0); Mean Corpuscular Hemoglobin 26.4 pg (27.0-33.0); Mean Corpuscular Volume 83.9 fL (80.0-98.0); NRBC Abs Auto 0.000 X10*3/uL (0.0-0.012); NRBC Pct Auto 0.0 /100WBC (0.0-0.2); Platelet Count 208 X10*3/uL (160-400); Red Blood Count 3.97 X10*6/uL (4.20-5.50); White Blood Count 4.1 X10*3/uL (4.8-10.8)
[2025-09-22 14:00] LABS: Alanine Aminotransferase 11 U/L (0-31); Albumin Level 4.2 g/dL (3.5-5.0); Alkaline Phosphatase 105 U/L (39-117); Anion Gap 10 (12-20); Aspartate Amino Transferase 22 U/L (5-31); Blood Urea Nitrogen 32 mg/dL (9-16); Calcium 9.8 mg/dL (8.4-10.2); Carbon Dioxide 21 mmol/L (22-29); Chloride 115 mmol/L (96-108); Creatinine Clr Calc Pharmacy 57.9; Estimated Glomerular Filt Rate 42; Potassium 4.2 mmol/L (3.3-5.1); Sodium 142 mmol/L (135-145); Total Protein 7.1 g/dL (6.5-8.0)
[2025-09-22 14:09] LABS: Troponin-I High Sensitivity < 2.7 ng/L (<3.5-17.0)
[2025-09-22 14:11] VITALS: BP 182/88; PULSE 76; RESP 16; O2SAT 98
[2025-09-22 14:16] VITALS: BP 182/88
[2025-09-22 15:09] VITALS: BP 166/89; PULSE 78; RESP 18; TEMP 36.6; O2SAT 100
== END 2025-09-22 15:18 | disposition home or self-care (01) ==
PROVIDERS: Physician Assistant; Emergency Provider Emergency Medicine; PCP Internal Medicine Medical Oncology
DX: I16.0 Hypertensive urgency (principal); R51.9 Headache, unspecified; J45.909 Unspecified asthma, uncomplicated; Z79.899 Other long term (current) drug therapy
CPT/HCPCS: 36415; 70450; 80053; 84484; 85025; 93005; 96374; 99283; 99284; J1920

== ENCOUNTER → 2025-09-22 10:47 | Outpatient (BNV) | payer MEDICARE, MEDICAID, SELFPAY | PROVIDERS: PCP Internal Medicine Medical Oncology; Visit Provider Radiology Diagnostic Radiology | DX: I10 Essential (primary) hypertension (principal); R51.9 Headache, unspecified | CPT/HCPCS: 70450 ==

== ENCOUNTER 2025-09-25 10:02 | Outpatient (AMB) | payer MEDICARE, MEDICAID, SELFPAY ==
--- OUTSIDE RECORDS SUMMARY | 2025-06-10 06:42 | XMS_ITS ---
Author Organization Yovanny Noel III, MD Address [address] [place] [address] Care Team Providers Care Degreasing Wheel Operator Name Role Phone Dr. Yovanny Noel III Primary Care Provider [phone] REASON FOR VISIT needs Simvastatin 40mg # 90 Medications Medication SIG (Take, Route, Fr equency, Duration) Notes Start Date End Date Status Simvastatin 40 MG Take 1 tablet by paras th in the evening Orally Once a day for 90 days Active Social History Sex Assigned At : Social History Observation Description Sex Assigned At Female Encounters Encounter Location Date Provider Diagnosis Yovanny Noel III, MD [address] [place] [address] [place] [address] 06/10/2025 Yovanny Noel Postnasal drip R09.82 Assessments Encounter Date Diagnosis (ICD Code) Assessment Notes Treatment Notes Treatment Clinical Notes 06/10/2025 Postnasal drip (ICD-10 - R09.82) Her symptoms have resolved and she says she feels well today. She is breathing comfortably. Her medications were continued. Plan Of Treatment Medication Medication Name Sig Start Date Stop Date Notes Simvastatin 40 MG Take 1 tablet by paras th in the evening Orally Once a day for 90 days Next Appt Details Provider Name:Yovanny Noel , 10/05/2025 10:30:00 AM, [address] [place] [address], [place] [address], [place], [address], Progress Notes * BURAKAgaie TDOB: [birth year] (64 yo F)Acc No.[id number]:06/10/2025 Patient: Lynnette POLLOCK :1960 A ge:64 Y S ex:Female Address:[address] [place] [id number] * Refills Refill Simvastatin Tablet, 40 MG, Orally, 90, Take 1 tablet by mouth in the evening, Once a day, 90 days, Refills=3 * true * Date: Generated for Noreen fonseca/Joel/Randysmitting on: 11/26/2024 10:07 AM EST
--- OUTSIDE RECORDS SUMMARY | 2025-06-26 05:28 | XMS_ITS ---
Author Organization Yovanny Noel III, MD Address [address] [place] [address] Care Team Providers Care Manager Of Administration Name Role Phone Dr. Yovanny Noel III Primary Care Provider REASON FOR VISIT Rx Request Social History Sex Assigned At : Social History Observation Description Sex Assigned At Female Encounters Encounter Location Date Provider Diagnosis Yovanny Noel III, MD [address] [place] [address] [place] [address] 06/26/2025 Yovanny Noel Plan Of Treatment Next Appt Details Provider Name:Yovanny Noel , 10/05/2025 10:30:00 AM, [address] [place] [address] [place], [address], Progress Notes * BURAKLynnette TDOB: [birth year] (64 yo F)Acc No.[id number]:06/26/2025 Patient: Lynnette POLLOCK :1960 A ge:64 Y S ex:Female Address:[address] [place] [phone] * true * Date: Generated for Noreen fonseca/Joel/Dannyitting on: 11/26/2024 10:09 AM EST
--- OUTSIDE RECORDS SUMMARY | 2025-07-14 04:55 | XMS_ITS ---
Author Organization Yovanny Noel III, MD Address [address] [place] [address] Care Team Providers Care Information Systems Audit Manager Name Role Phone Dr. Yovanny Noel III Primary Care Provider [phone] REASON FOR VISIT UNDERWATER WELDER Form Social History Sex Assigned At : Social History Observation Description Sex Assigned At Female Encounters Encounter Location Date Provider Diagnosis Yovanny Noel III, MD [address] [place] [address] [place] [address] 07/14/2025 Yovanny Noel Plan Of Treatment Next Appt Details Provider Name:Yovanny Noel , 10/05/2025 10:30:00 AM, [address] [place] [address] [place], [address], Progress Notes * BURAKLynnette TDOB: [birth year] (64 yo F)Acc No.[id number]:07/14/2025 Patient: Lynnette POLLOCK :1960 A ge:64 Y S ex:Female Address:[address] [place] [phone] * true * Date: Generated for Noreen fonseca/Joel/Dannyitting on: 11/26/2024 10:07 AM EST
--- OUTSIDE RECORDS SUMMARY | 2025-07-28 04:43 | XMS_ITS ---
Author Organization Yovanny Noel III, MD Address [address] [facility] [place] [address] Care Team Providers Care Chief Of Party Name Role Phone Dr. Yovanny Noel III Primary Care Provider REASON FOR VISIT Message Social History Sex Assigned At : Social History Observation Description Sex Assigned At Female Encounters Encounter Location Date Provider Diagnosis Yovanny Noel III, MD [address] [place] [address] [place] [address] 07/28/2025 Yovanny Noel Plan Of Treatment Next Appt Details Provider Name:Yovanny Noel , 10/05/2025 10:30:00 AM, [address] [place] [address] [place], [address], Progress Notes * BURAKLynnette TDOB: [birth year] (64 yo F)Acc No.[id number]:07/28/2025 Patient: Lynnette POLLOCK :1960 A ge:64 Y S ex:Female Address:[address] [place] [phone] * true * Date: Generated for Noreen fonseca/Joel/Dannyitting on: 11/26/2024 10:08 AM EST
--- OUTSIDE RECORDS SUMMARY | 2025-07-29 09:53 | XMS_ITS ---
Author Organization Yovanny Noel III, MD Address [address] [place] [address] Care Team Providers Care Building Trades Teacher Name Role Phone Dr. Yovanny Noel III Primary Care Provider REASON FOR VISIT Verbal Orders Social History Sex Assigned At : Social History Observation Description Sex Assigned At Female Encounters Encounter Location Date Provider Diagnosis Yovanny Noel III, MD [address] [place] [address] [place] [address] 07/29/2025 Yovanny Noel Plan Of Treatment Next Appt Details Provider Name:Yovanny Noel , 10/05/2025 10:30:00 AM, [address] [place] [address] [place], [address], Progress Notes * BURAKLynnette TDOB: [birth year] (64 yo F)Acc No.[id number]:07/29/2025 Patient: Lynnette POLLOCK :1960 A ge:64 Y S ex:Female Address:[address] [place] [phone] * true * Date: Generated for Noreen fonseca/Joel/Dannyitting on: 11/26/2024 10:07 AM EST
--- OUTSIDE RECORDS SUMMARY | 2025-07-31 05:45 | XMS_ITS ---
Author Organization Yovanny Noel III, MD Address [address] [place] [address] Care Team Providers Care [employer] Worker Name Role Phone Dr. Yovanny Noel III Primary Care Provider Allergies Allergen (clinical drug ingredient) Drug/Non Drug Allergy documented on EMR Reaction Allergy Type Onset Date Status No Known Drug Allergy Unknown Drug Allergy Active REASON FOR VISIT Chronic lumbar spine pain, Lumbar spondylolisthesis with radiculopathy, Hyperlipidemia, Goiter, Hypertension, Morbid obesity, Depression, Sleep apnea, Stage IIIB renal disease, Sleep apnea Medications Medication SIG (Take, Route, Frequency, Duration) Notes Start Date End Date Status Metoprolol Tartrate 100 MG Take 1 tablet by mouth twice daily with food Active Pantoprazole Sodium 20 MG 1 tablet 1/2 t o 1 hour before morning meal Orally Once a day 10/27/2024 Active Advair Diskus 500-50 MCG/DOSE 1 puff Inhalation every 12 hrs Active Esomeprazole Magnesium 40 MG Take 1 caps ule by mouth once daily Active Escitalopram Oxalate 20 MG 1 tablet Oral ly Once a day 12/29/2021 Active Flonase 50 MCG/ACT 1 spray in each nost ril Nasally Once a day 09/28/2023 Active hydrALAZINE HCl 50 MG 1 tablet with food Orally Four times a day Active Loratadine 10 MG Take 1 tablet by paras th once daily Active Clotrimazole 1 % 1 application Agricultural Crop Farm Manager ally Twice a day 04/23/2025 Active Simvastatin 40 MG Take 1 tablet by paras th in the evening Orally Once a day Active dexAMETHasone 2 MG 1 tablet Orally teic e a day 01/27/2025 Active Pregabalin 75 MG 1 capsule Orally Onc e a day 01/27/2025 Active Senna Laxative 8.6 MG 1 tablet Orally tw ice a day 12/29/2024 Active Gabapentin 300 MG 1 capsule Orally thr ee times a day 01/23/2023 Active Lisinopril 20MG TAKE ONE TABLET BY OUT EVERY DAY Active Polyethylene Glycol 3350 17 GM 1 packet mixed with 8 ounces of fluid Orally Once a day Active Meloxicam 15 MG Take 1 tablet by paras th once daily Active Clopidogrel Bisulfate 75 MG TAKE 1 TABLE T BY MOUTH ONCE DAILY Orally Once a day Active Cyclobenzaprine HCl 10 MG as directed Or ally three times a day 08/15/2022 Active Furosemide 40 MG 1 tablet Orally Once a day 02/15/2021 Active K-Tab 10 MEQ 1 tablet with food Orally Once a day 02/15/2021 Active Montelukast Sodium 10 MG 1 tablet in the evening Orally Once a day Active amLODIPine Besylate 10 MG 1 tablet Orall y Once a day Active Combivent 18-103 MCG/ACT 2 puffs Inhalat ion Six times a day Active Ibuprofen 800 MG 1 tablet Orally Thre e times a day 07/28/2016 Active Social History Tobacco Use: Social History [...] non-user Ex-cigaret te smoker Vital Signs Temperature 97.2 degrees Fahrenheit 07/31/20 25 Blood pressure systolic 138 mm Hg 07/31/20 25 Blood pressure diastolic 77 mm Hg 025 Heart Rate 71 /min 07/31/2025 Height 63 in 07/31/2025 Weight 269 lbs 07/31/2025 BMI 47.65 kg/m2 07/31/2025 Encounters Encounter Location Date Provider Diagnosis Yovanny Noel III, MD [address] [place] [address] DR [place]ARCIAJOVANNY, YASMEEN [id number] 07/31/2025 Yovanny Noel Former smoker Z87.89 1 ; Morbid obesity E66.01 ; Lumbar radiculopathy M54.16 ; Other and unspecified hyperlipidemia E78.5 ; Nontoxic uninodular goiter E04.1 ; Essential hypertension I10 and CVA (cerebral vascular accident) I63.9 Assessments Encounter Date Diagnosis (ICD Code) Assessment Notes Treat ment Notes Treatment Clinical Notes 07/31/2025 Former smoker (ICD-1 0 - Z87.891) She is highly motivated to not smoke. We have discussed a strategy for maintenance of abstinence in times of stress and illness. 07/31/2025 Morbid obesity (ICD-10 - E66.01) She continues to participate in the weight-loss program. She has lost 12 pounds since October 31, 2024. She will continue on her current therapies without change. She will be seen frequently to weigh her and form of support. 07/31/2025 Lumbar radiculopathy (ICD-10 - M54.16) She has undergone the L5-S1 fusion without complication. She continues to have postoperative pain. She is receiving [facility] physical therapy. She is encouraged to continue to participate to be optimistic about the future.. 07/31/2025 Other and unspecifie d hyperlipidemia (ICD-10 - E78.5) Comprehensive blood work with a fasting lipid profile is being done periodically.The most recent total cholesterol was within normal limits. 07/31/2025 Nontoxic uninodular goiter (ICD-10 - E04.1) Her thyroid is not palpable today. She appears to be euthyroid. This problem will be followed closely. 07/31/2025 Essential hypertension (ICD-10 - I10) She is compliant with all of her medications but in significant pain. Her systolic blood pressure is higher than optimal. We will address this with medication, sodium restriction, weight loss and when she has recovered from surgery, physical activity. 07/31/2025 CVA (cerebral vascular accident) (ICD-10 - I63.9) She continues to have mild residual numbness in left side of her face but no muscle weakness is noted. She is able to conduct all of the activities of daily living. Her blood pressure is stable and her weight is dropping steadily. She is consuming a healthy, low-sodium diet. Plan Of Treatment Medication Medication Name Sig Start Date Stop Date Notes Metoprolol Tartrate 100 MG Take 1 tablet by mouth twice daily with food Pantoprazole Sodium 20 MG 1 tablet 1/2 t o 1 hour before morning meal Orally Once a day 10/27/2024 Advair Diskus 500-50 MCG/DOSE 1 puff Inh alation every 12 hrs Esomeprazole Magnesium 40 MG Take 1 caps ule by mouth once daily Escitalopram Oxalate 20 MG 1 tablet Orally Once a day 12/01 Flonase 50 MCG/ACT 1 spray in each nost ril Nasally Once a day 09/28/2023 hydrALAZINE HCl 50 MG 1 tablet with food Orally Four times a day Loratadine 10 MG Take 1 tablet by paras th once daily Clotrimazole 1 % 1 application Agricultural Crop Farm Manager ally Twice a day 04/23/2025 Simvastatin 40 MG Take 1 tablet by paras th in the evening Orally Once a day dexAMETHasone 2 MG 1 tablet Orally teice a day 01/27/2025 Pregabalin 75 MG 1 capsule Orally Once a day 01/27/2025 Senna Laxative 8.6 MG 1 tablet Orally twice a day 12/30/19 Gabapentin 300 MG 1 capsule Orally thr ee times a day 01/23/2023 Lisinopril 20MG TAKE ONE TABLET BY M OUTH EVERY DAY Polyethylene Glycol 3350 17 GM 1 packet mixed with 8 ounces of fluid Orally Once a day Meloxicam 15 MG Take 1 tablet by paras th once daily Clopidogrel Bisulfate 75 MG TAKE 1 TABLE T BY MOUTH ONCE DAILY Orally Once a day Cyclobenzaprine HCl 10 MG as directed Or ally three times a day 08/15/2022 Furosemide 40 MG 1 tablet Orally Once a day 02/15/2021 K-Tab 10 MEQ 1 tablet with food O rally Once a day 02/15/2021 Montelukast Sodium 10 MG 1 tablet in the evening Orally Once a day amLODIPine Besylate 10 MG 1 tablet Orally Once a day Combivent 18-103 MCG/ACT 2 puffs Inhalat ion Six times a day Ibuprofen 800 MG 1 tablet Orally Thre e times a day 07/28/2016 Next Appt Details Follow Up: 6 Weeks, Reason: OV Provider Name:Yovanny Noel , 10/05/2025 10:30:00 AM, [address] [place] [address] [address] [address], [place], [address], Progress Notes * Lynnette MCGILL TDOB: [birth year] (64 yo F)Acc No.[id number]:07/31/2025 Progress Notes Patient: Lynnette POLLOCK Provider: Preston Noel MD :1960 A ge:64 Y S ex:Female Date:07/31/2025 Address:[address] [place], [place] [id number] Subjective: * Chief Complaints: * C hronic lumbar spine painLumbar spondylolisthesis with radiculopathyHyperlipidemiaGoiterHypertensionMorbid obesityDepressionSleep apneaStage IIIB renal diseaseSleep apnea * HPI: C OVID-19 Screening: She was discharged from the [facility] July 12, 2025 after and L5-S1 transforaminal interbody lumbar fusion. This was done for chronic low back pain with radiculopathy. She continues to have some back pain but it is less than before and is improving day by day. She is able to walk but is slightly unsteady and uses a device. No new problems were seen in her examination today. The left foot pain has resolved. The postnasal drip has resolved as has a sinusitis. Her esophageal reflux is well controlled. She is up-to-date with nephrology. She is using her CPAP machine. Her depression is minimal today. Questions H ave you had any new onset fever, chills, cough, congestion, sore throat, shortness of breath, muscle aches? N o * ROS: G eneral/Constitutional: pain S urgical incision lumbar spine. C hills d enies. F atigue a dmits. F ever d enies. E NT: Decreased hearing d enies. R espiratory: Cough d enies. C ardiovascular: Chest pain with exertion d enies. D yspnea on exertion?with prolonged activity. S hortness of breath w ith exertion. G astrointestinal: Constipation o ccasional. D ecreased appetite d enies. D iarrhea d enies. H eartburn d enies. N ausea d enies. R ectal bleeding d enies. V omiting d enies. H ematology: bruising d enies. p etechiae d enies. S wollen glands n one have been noted. G enitourinary: Frequent urination d enies. M usculoskeletal: Muscle aches d enies. P ainful joints L umbar spine. S ciatica d enies. W eakness d enies. S kin: Itching d enies. R carmelita d enies. S kin lesion(s)?denies. N eurologic: Difficulty speaking d enies. D izziness d enies.?Headache d enies. L ow back pain t hat is chronic. 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 She has four children, 2 of each, Emir, Fuentes, Benson, Marie. She was born in [place]. * Medications: T akingFlonase 50 MCG/ACT Suspension 1 spray in each nostril Nasally Once a day hydrALAZINE HCl 50 MG [...] Take 1 capsule by mouth once daily Escitalopram Oxalate 20 MG Tablet 1 tablet [...] 1 capsule Orally three times a day Polyethylene Glycol 3350 17 GM Packet 1 packet mixed with 8 ounces of fluid Orally Once a day Meloxicam 15 MG Tablet Take 1 tablet by mouth once daily Lisinopril 20MG Tablet TAKE ONE TABLET BY MOUTH EVERY DAY Clopidogrel Bisulfate 75 MG Tablet TAKE 1 TABLET BY MOUTH ONCE DAILY Orally Once a day Senna Laxative 8.6 MG Tablet 1 tablet Orally twice a day dexAMETHasone 2 MG Tablet 1 tablet Orally teice a day Pregabalin 75 MG Capsule 1 capsule Orally Once a day Clotrimazole 1 % Cream 1 application Externally Twice a day , stop date 08/12/2025Simvastatin 40 MG Tablet Take 1 tablet by mouth in the evening Orally Once a day Loratadine 10 MG Tablet Take 1 tablet by mouth once daily Taking Flonase 50 MCG/ACT Suspension 1 spray in each nostril Nasally Once a day Taking hydrALAZINE HCl 50 [...] 1 capsule by mouth once daily Taking Escitalopram Oxalate 20 MG Tablet 1 [...] capsule Orally three times a day Taking Polyethylene Glycol 3350 17 GM Packet 1 packet mixed with 8 ounces of fluid Orally Once a day Taking Meloxicam 15 MG Tablet Take 1 tablet by mouth once daily Taking Lisinopril 20MG Tablet TAKE ONE TABLET BY MOUTH EVERY DAY Taking Clopidogrel Bisulfate 75 MG Tablet TAKE 1 TABLET BY MOUTH ONCE DAILY Orally Once a day Taking Senna Laxative 8.6 MG Tablet 1 tablet Orally twice a day Taking dexAMETHasone 2 MG Tablet 1 tablet Orally teice a day Taking Pregabalin 75 MG Capsule 1 capsule Orally Once a day Taking Clotrimazole 1 % Cream 1 application Externally Twice a day , stop date 08/12/2025Taking Simvastatin 40 MG Tablet Take 1 tablet by mouth in the evening Orally Once a day Taking Loratadine 10 MG Tablet Take 1 tablet by mouth once daily DiscontinuedBenzonatate 200 MG Capsule 1 capsule as needed Orally Three times a day predniSONE 20 MG Tablet TAKE 1 TABLET BY MOUTH ONCE DAILY WITH FOOD OR MILK Pregabalin 50 MG Capsule 1 capsule Orally Twice a day dexAMETHasone 2 MG Tablet 1 tablet Orally every 12 hrs Lisinopril 40 MG Tablet Take 1 tablet by mouth once daily Guaiatussin AC 100-10 MG/5ML Syrup 10 mL as needed Orally every 6 hrs As neededguaiFENesin-Codeine 100-10 MG/5ML Solution 10 mL as needed Orally every 6 hrs Medication List reviewed and reconciled with the patientDiscontinued Benzonatate 200 MG Capsule 1 capsule as needed Orally Three times a day Discontinued predniSONE 20 MG Tablet TAKE 1 TABLET BY MOUTH ONCE DAILY WITH FOOD OR MILK Discontinued Pregabalin 50 MG Capsule 1 capsule Orally Twice a day Discontinued dexAMETHasone 2 MG Tablet 1 tablet Orally every 12 hrs Discontinued Lisinopril 40 MG Tablet Take 1 tablet by mouth once daily Discontinued Guaiatussin AC 100-10 MG/5ML Syrup 10 mL as needed Orally every 6 hrs As neededDiscontinued guaiFENesin-Codeine 100-10 MG/5ML Solution 10 mL as needed Orally every 6 hrs Medication List reviewed and reconciled with the patient * Allergies: N o Known Drug Allergyno[Allergies Verified] Objective: * Vitals: H t: 63, Wt: 269, BMI:47.65, BP: 138/77, HR: 71, Temp: 97.2, Ht-cm: 160.02, Wt-k.02. * Examination: G eneral Examination: GENERAL APPEARANCE: p leasant, well nourished, well developed, in no acute distress, calm and relaxed: morbidly obese: woman. HEAD: a traumatic, normocephalic. EYES: e tony, perrla, anicteric, conjugate. EARS: n ormal. NOSE: s eptum intact. ORAL CAVITY: n ormal, unremarkable. NECK/THYROID: n o jugular venous distention, no carotid bruit, thyroid normal. LYMPH NODES: n o enlarged lymph nodes,spleen normal. SKIN: n o suspicious lesions, anicteric. HEART: n o clicks, gallops, murmurs, or rubs, regular rhythm, S1, S2 normal, no s3, or vascular bruits. LUNGS: : diminished breath sounds throughout: no wheezes, rales, rhonchi. BREASTS: N ot examined. ABDOMEN: b owel sounds normal, no ascites, no organomegaly, no mass. RECTAL EXAM: n ot examined. MUSCULOSKELETAL: e xtremities unremarkable, no clubbing, cyanosis or edema, Recent lumbar incision well-healed. PERIPHERAL PULSES: n ormal. NEUROLOGIC: a lert and oriented, cranial nerves 2-12 grossly intact, deep tendon reflexes 2+ symmetrical, motor strength normal upper and lower extremities, sensory exam intact. PSYCH: a lert, oriented. Assessment: * Assessment: 1. M orbid obesity - E66.01 (Primary) N otes :She continues to participate in the weight-loss program. She has lost 12 pounds since October 31, 2024. She will continue on her current therapies without change. She will be seen frequently to weigh her and form of support. 2 . F ormer smoker - Z87.891 N otes :She is highly motivated to not smoke. We have discussed a strategy for maintenance of abstinence in times of stress and illness. 3 . L umbar radiculopathy - M54.16 N otes :She has undergone the L5-S1 fusion without complication. She continues to have postoperative pain. She is receiving [facility]. She is encouraged to continue to participate to be optimistic about the future.. 4 . O ther and unspecified hyperlipidemia - E78.5 N otes :Comprehensive blood work with a fasting lipid profile is being done periodically.The most recent total cholesterol was within normal limits. 5 . N ontoxic uninodular goiter - E04.1 N otes :Her thyroid is not palpable today. She appears to be euthyroid. This problem will be followed closely. 6 . E ssential hypertension - I10 N otes :She is compliant with all of her medications but in significant pain. Her systolic blood pressure is higher than optimal. We will address this with medication, sodium restriction, weight loss and when she has recovered from surgery, physical activity. 7 . C VA (cerebral vascular accident) - I63.9 N otes :She continues to have mild residual numbness in left side of her face but no muscle weakness is noted. She is able to conduct all of the activities of daily living. Her blood pressure is stable and her weight is dropping steadily. She is consuming a healthy, low-sodium diet. Plan: * Treatment: * Procedure Codes: * Preventive Medicine: Counseling: [...] of tobacco use and urged to quit. 1 * Follow Up: 6 Weeks (Reason: OV) * Images: * Sign off status: Completed true * Provider: Preston Noel MD Date: Generated for Noreen fonseca/Joel/Gustabo on: 11/26/2024 10:07 AM EST History and Physical Notes * HPI (History of Present Illness) Category Sub-Category Detail Notes COVID-19 Screening Questions Have you had any new onset fever, chills, cough, congestion, sore throat, shortness of breath, muscle aches?: No Examination Category Sub-Category Detail Notes General Examination GENERAL APPEARANCE: pleasant , well nourished, well developed, in no acute distress, calm and relaxed: morbidly obese: woman HEAD: atraumatic, normocep halic EYES: eomi, perrla, anicte noa, conjugate EARS: normal NOSE: septum intact NECK/THYROID: no jugular venous di stention, no carotid bruit, thyroid normal HEART: no clicks, gallops, murmurs, or rubs, regular rhythm, S1, S2 normal, no s3, or vascular bruits LUNGS: : diminished breath sounds throughout: no wheezes, rales, rhonchi ABDOMEN: bowel sounds normal, no ascites, no organomegaly, no mass NEUROLOGIC: alert and oriented, cranial nerves 2-12 grossly intact, deep tendon reflexes 2+ symmetrical, motor strength normal upper and lower extremities, sensory exam intact SKIN: no suspicious lesion s, anicteric PERIPHERAL PULSES: normal BREASTS: Not examined MUSCULOSKELETAL: extremities unremark able, no clubbing, cyanosis or edema, Recent lumbar incision well-healed LYMPH NODES: no enlarged lymph no andre,spleen normal RECTAL EXAM: not examined PSYCH: alert, oriented ORAL CAVITY: normal, unremarkable
--- OUTSIDE RECORDS SUMMARY | 2025-08-05 10:56 | XMS_ITS ---
Author Organization Yovanny Noel III, MD Address [address] [place] [address] Care Team Providers Care Tie Maker Name Role Phone Dr. Yovanny Noel III Primary Care Provider [phone] REASON FOR VISIT Med List Updated Medications Medication SIG (Take, Route, Frequency, Duration) Notes Start Date End Date Status dexAMETHasone 2 MG 1 tablet Orally teic e a day 01/27/2025 Active Pregabalin 75 MG 1 capsule Orally Onc e a day 01/27/2025 Active Loratadine 10 MG Take 1 tablet by paras th once daily Active Clotrimazole 1 % 1 application Hand Stonecutter ally Twice a day 04/23/2025 Active Simvastatin [...] Provider Diagnosis Yovanny Noel III, MD [address] [place] [address] [address] [place] [address] 08/05/2025 Yovanny Noel Plan Of Treatment Next Appt Details Provider Name:Yovanny Noel , 10/05/2025 10:30:00 AM, [address] [place] [address] [place], [address], Progress Notes * Lynnette MCGILL TDOB: [birth year] (64 yo F)Acc No.[id number]:08/05/2025 Patient: Lynnette POLLOCK :1960 A ge:64 Y S ex:Female Address:[address] [place] [phone] Subjective: * Chief Complaints: * M ed [...] * Date: Generated for Noreen Stearns/Gustabo on: 11/26/2024 10:07 AM EST
--- OUTSIDE RECORDS SUMMARY | 2025-08-12 04:05 | XMS_ITS ---
Author Organization Yovanny Noel III, MD Address [address] [place] [address] Care Team Providers Care End Finder Forming Department Name Role Phone Dr. Yovanny Noel III Primary Care Provider REASON FOR VISIT Rx Request Social History Sex Assigned At : Social History Observation Description Sex Assigned At Female Encounters Encounter Location Date Provider Diagnosis Yvoanny Noel III, MD [address] [place] [address] [place] [address] 08/12/2025 Yovanny Noel Plan Of Treatment Next Appt Details Provider Name:Yovanny Noel , 10/05/2025 10:30:00 AM, [address] [place] [address] [place], [address], Progress Notes * NANOLynnette TDOB: [birth year] (64 yo F)Acc No.[id number]:08/12/2025 Patient: Lynnette POLLOCK :1960 A ge:64 Y S ex:Female Address:[address] [place] [phone] * true * Date: Generated for Noreen fonseca/Joel/Dannyitting on: 11/26/2024 10:08 AM EST
--- OUTSIDE RECORDS SUMMARY | 2025-08-12 05:51 | XMS_ITS ---
Author Organization Yovanny Noel III, MD Address [address] [place] [address] Care Team Providers Care Tea Leaf Reader Name Role Phone Dr. Yovanny Noel III Primary Care Provider Medications Medication SIG (Take, Route, Fr equency, Duration) Notes Start Date End Date Status Azithromycin 250 MG like directed Orally 2 Tablets on the first day, one tablet the rest of the days for 5 days 08/12/2025 Acti ve Social History Sex Assigned At : Social History Observation Description Sex Assigned At Female Encounters Encounter Location Date Provider Diagnosis Yovanny Noel III, MD [address] [place] [address] [place] [address] 08/12/2025 Yovanny Noel Plan Of Treatment Medication Medication Name Sig Start Date Stop Date Notes Azithromycin 250 MG like directed Orally 2 Tablets on the first day, one tablet the rest of the days for 5 days 08/12/2025 Next Appt Details Provider Name:Yovanny Noel , 10/05/2025 10:30:00 AM, [address] [place] [address] DR AUGUSTINE [place], [place], [address], Progress Notes * Lynnette MCGILL TDOB: [birth year] (64 yo F)Acc No.[id number]:08/12/2025 Patient: Lynnette POLOLCK :1960 A ge:64 Y S ex:Female Address:[address] [place] [phone] * Refills Start Azithromycin Tablet, 250 MG, Orally, 6, like directed, 2 Tablets on the first day, one tablet the rest of the days, 5 days, Refills=0 * true * Date: Generated for Noreen fonseca/Joel/Dannyitting on: 11/26/2024 10:07 AM EST
--- OUTSIDE RECORDS SUMMARY | 2025-09-08 05:15 | XMS_ITS ---
Author Organization Yovanny Noel III, MD Address [address] [place] [address] Care Team Providers Care Engineering Program Analyst Name Role Phone Dr. Yovanny Noel III Primary Care Provider [phone] Allergies Allergen (clinical drug ingredient) Drug/Non Drug Allergy documented on EMR Reaction Allergy Type Onset Date Status No Known Drug Allergy Unknown Drug Allergy Active Results Component Value Reference Range Notes Routine Culture Reviewed date:09/24/2025 07:00:11 AM Interpretation: Performing Lab:[facility], [address] [place] [phone] Notes/Report: LEFT NOSTRIL O:STAAUR Staphylococcus aureus Routine [...] Problem Status W/U Status Risk Notes Problem [id number] Ulcer of nose (J34.0) Active confirmed There [...] Date Provider Diagnosis Yovanny Noel III, MD [address] [place] [address] [place] [address] 09/08/2025 Yovanny Noel Ulcer of nose J34.0 [...] a day Clotrimazole 1 % 1 application Coat Operator Insulator ally Twice a day 04/23/2025 Pregabalin 75 [...] day 12/29/2024 Mupirocin 2 % 1 application Coat Operator Insulator ally Twice a day for 30 days [...] 1 caps ule by mouth once daily Next Appt Details Follow Up: As Scheduled, Alondra son: Annual Exam Provider Name:Yovanny Noel , 10/05/2025 10:30:00 AM, [address] [place] [address], [address], [phone], Progress Notes * Lynnette MCGILL TDOB: [birth year] (64 yo F)Acc No.[id number]:09/08/2025 Progress Notes Patient: Lynnette POLLOCK Provider: Preston Noel MD :1960 A ge:64 Y S ex:Female Date:09/08/2025 Address:[address] [place], [place] [id number] Subjective: * Chief Complaints: * R ecent [...] without asthma. She is going to spend [place] morning with her children. Her depression was [...] is single and working at a local [employer]. She has four children, 2 of each, Emir, Fuentes, Benson, Marie. She was born in [place]. * Medications: T akingFlonase 50 MCG/ACT Suspension [...] Preston Noel MD Date: 11/09/2024 Generated for Marii marian/Joel/eTransmitting on: 11/26/2024 10:08 AM EST History and Physical Notes * [...]
--- OUTSIDE RECORDS SUMMARY | 2025-09-25 10:07 | XMS_ITS | Encounter Summary ---
Author Organization [facility] Address [address] [place] [address] Care Team Providers Care Plastic Outfitter Name Role Phone Yovanny Noel MD Primary Care Provider [phone] Reason for Visit * Reason Onset Date Comments Appointment 09/23/2025 1st Notification Encounter Details Date Type Department Care Team (Late st Contact Info) Description 09/23/2025 Telephone Lung Screening Program - [place] [address] [facility] [address] [place] [address] Sara Reyes MA Social History Tobacco Use Types Packs/Day Years [...] as of this encounter Progress Notes * Sara Reyes MA - 09/23/2025 3:21 PM EST Lynnette Mcgill was contacted by the Lung Cancer Screening Program today to confirm the appointment of their Lung Cancer Screening. The patient is currently scheduled to have their screening on SundayOctober 14, 2025, at 330 PM at [facility]. For all screenings scheduled during the week, the patient will check in at Patient Registration on the first floor of the [facility]. For screenings that take place on the weekend or after 5pm, check-in directly in Radiology. The patient was given the Lung Cancer Screening Program phone number, , to contact if they have any additional questions, concerns or need to reschedule. Patients are encouraged to call our office and reschedule if they are exhibiting any cold-like symptoms, have recently been treated for Pneumonia or Influenza (the flu) or have had another CT of their Chest since their last screening. documented in this encounter Plan of Treatment Upcoming Encounters Date Type Department Care Team ([facility] st Contact Info) Description 10/14/2025 3:30 PM EST Appointment [facility] CT Scan [address] [place] [phone] 10/28/2025 9:30 AM EST Office Visit Gastroenterology - [address] [facility] [address] [facility] [address] [place] [address] Amee Dean PA 299 [facility] [address] [place] [address] 03/25/2026 11:15 AM EDT Office Visit Bariatric Surgery - [place] [address] [facility] [address] [place] [phone] Julian Hubbard MD [address] [place] [address] documented as of this encounter Visit Diagnoses Not on filedocumented in this encounter Care Teams Plastic Outfitter Relationship Specialty Start Date End Date Yovanny Noel MD [address] [address] PCP - General Oncology 07/25/24 documented as of this encounter
--- OUTSIDE RECORDS SUMMARY | 2025-09-25 10:07 | XMS_ITS | Data Portability ---
Author Organization [place] - [facility], Allergy Address [address] [address] Care Team Providers Care Timber Framer Helper Name Role Phone GHAZALA COX Primary Care Provider [phone] Assessment Encounter Date Assessment Date Assessment LastModified [...] review CT sinus which was performed at [facility] 10/07/24. Reviewed with the patient that [...] CT, maxillofaci al, w/o contrast 2023 024 [email or web address] [facility], [address] [place] [address], [facility] [address], [place], [address], 15:43:52 Medication Orders ipratropium bromide 21 mcg (0.03 %) nasal spray 2024 025 [facility] [address], [address], [place], [address], 08:50:35 Patient TargetsNo targets recorded. Patient Instructions Encounter Date Encounter Id Patient Instructions Last Modified By Organization Details Last Modified Time 11/12/2024 [id number] Nursing Documentation for Allergy Testing: Ordering Provider [...] SHRUTI Padilla Not available 11/12/2024 10:43:53 12/31/2024 [id number] Patient appears to have nonallergic/vasomo tor rhinitis [...] >100. 00 Very High Not Available [facility] ([facility]) [address] [place], [address], 11/14/2024 12:20:42 11/12/19 25 11/14/2024 ALLER GENS, ZONE 1 C786-SrK D pteronyssinu s <0.10 kU/L class 0 Not Available [facility] ([facility]) [address] [place], [address], 11/14/2024 12:20:42 11/12/19 25 11/14/2024 ALLER GENS, ZONE 1 N459-DwU D farinae <0.10 kU/L class 0 Not Available [facility] ([facility]) [address] [place], [address], 11/14/2024 12:20:42 11/12/19 25 11/14/2024 ALLER GENS, ZONE 1 H330-CmJ CAT dander <0.10 kU/L class 0 Not Available [facility] ([facility]) [address] [place], [address], 11/14/2024 12:20:42 11/12/19 25 11/14/2024 ALLER GENS, ZONE 1 Y287-NoK dog dander <0.10 kU/L class 0 Not Available [facility] ([facility]) [address] [place], [address], 11/14/2024 12:20:42 11/12/19 25 11/14/2024 ALLER GENS, ZONE 1 v897-TmE bermuda grass <0.10 kU/L class 0 Not Available [facility] ([facility]) [address] [place], [address], 11/14/2024 12:20:42 11/12/19 25 11/14/2024 ALLER GENS, ZONE 1 d051-XaW bluegrass, tiffaniey 0.14 kU/L class 0/I abnormal Not Available [facility] ([facility]) [address] [place], [address], 11/14/2024 12:20:42 11/12/19 25 11/14/2024 ALLER GENS, ZONE 1 f616-DvK bahia grass <0.10 kU/L class 0 Not Available [facility] ([facility]) [address] [facility], [place], [address], 11/14/2024 12:20:42 11/12/19 25 11/14/2024 ALLER GENS, ZONE 1 X522-DwQ cockroach, thai <0.10 kU/L class 0 Not Available [facility] ([facility]) [address] [place], [address], 11/14/2024 12:20:42 11/12/19 25 11/14/2024 ALLER GENS, ZONE 1 R625-EkX penicillium chrysogen <0.10 kU/L class 0 Not Available [facility] ([facility]) [address] [place], [address], 11/14/2024 12:20:42 11/12/19 25 11/14/2024 ALLER GENS, ZONE 1 U580-QbV cladosporium herbarum <0.10 kU/L class 0 Not Available [facility] ([facility]) [address] [place], [address], 11/14/2024 12:20:42 11/12/19 25 11/14/2024 ALLER GENS, ZONE 1 D203-NhA aspergillus fumigatus <0.10 kU/L class 0 Not Available [facility] ([facility]) [address] [place], [address], 11/14/2024 12:20:42 11/12/19 25 11/14/2024 ALLER GENS, ZONE 1 O579-UiX mucor racemosus <0.10 kU/L class 0 Not Available [facility] ([facility]) [address] [place], [address], 11/14/2024 12:20:42 11/12/19 25 11/14/2024 ALLER GENS, ZONE 1 U140-ZbD alternaria alternata <0.10 kU/L class 0 Not Available [facility] ([facility]) [address] [place], [address], 11/14/2024 12:20:42 11/12/19 25 11/14/2024 ALLER GENS, ZONE 1 M474-DcX stemphylium herbarum <0.10 kU/L class 0 Not Available [facility] ([facility]) [address] [facility], [address], 11/14/2024 12:20:42 11/12/19 25 11/14/2024 ALLER GENS, ZONE 1 B851-RhG common silver birch 0.12 kU/L class 0/I abnormal Not Available [facility] ([facility]) [address] [place], [address], 11/14/2024 12:20:42 11/12/19 25 11/14/2024 ALLER GENS, ZONE 1 N451-KfX oak, white <0.10 kU/L class 0 Not Available [facility] ([facility]) [address] [place], [address], 11/14/2024 12:20:42 11/12/19 25 11/14/2024 ALLER GENS, ZONE 1 C410-DfH elm, thai <0.10 kU/L class 0 Not Available [facility] ([facility]) [address] [place], [address], 11/14/2024 12:20:42 11/12/19 25 11/14/2024 ALLER GENS, ZONE 1 G506-UkX carmelita, white <0.10 kU/L class 0 Not Available [facility] ([facility]) [address] [facility], [place], [address], 11/14/2024 12:20:42 11/12/19 25 11/14/2024 ALLER GENS, ZONE 1 D417-FlC maple/box elder <0.10 kU/L class 0 Not Available [facility] ([facility]) [address] [facility], [place], [address], 11/14/2024 12:20:42 11/12/19 25 11/14/2024 ALLER GENS, ZONE 1 L988-OyF hazelnut tree <0.10 kU/L class 0 Not Available [facility] ([facility]) [address] [facility], [place], [address], 11/14/2024 12:20:42 11/12/19 25 11/14/2024 ALLER GENS, ZONE 1 J892-WhQ hickory, white <0.10 kU/L class 0 Not Available [facility] ([facility]) [address] [facility], [place], [address], 11/14/2024 12:20:42 11/12/19 25 11/14/2024 ALLER GENS, ZONE 1 U138-JsK white mulberry <0.10 kU/L class 0 Not Available [facility] ([facility]) [address] [facility], [place], [address], 11/14/2024 12:20:42 11/12/19 25 11/14/2024 ALLER GENS, ZONE 1 P212-ZbN cedar, mountain <0.10 kU/L class 0 Not Available [facility] ([facility]) [address] [facility], [place], [address], 11/14/2024 12:20:42 11/12/19 25 11/14/2024 ALLER GENS, ZONE 1 G501-RjO ragweed, short 0.21 kU/L class 0/I abnormal Not Available [facility] ([facility]) [address] [facility], [place], [address], 11/14/2024 12:20:42 11/12/19 25 11/14/2024 ALLER GENS, ZONE 1 U493-DaH mugwort <0.10 kU/L class 0 Not Available [facility] ([facility]) [address] [facility] [place], [address], 11/14/2024 12:20:42 11/12/19 25 11/14/2024 ALLER GENS, ZONE 1 M603-MjL plantain, greek <0.10 kU/L class 0 Not Available [facility] ([facility]) [address] [facility] [place], [address], 11/14/2024 12:20:42 11/12/19 25 11/14/2024 ALLER GENS, ZONE 1 F715-MoM pigweed, common <0.10 kU/L class 0 Not Available [facility] ([facility]) [address] [facility], [place], [address], 11/14/2024 12:20:42 11/12/19 25 11/14/2024 ALLER GENS, ZONE 1 C365-UsK sheep sorrel <0.10 kU/L class 0 Not Available [facility] ([facility]) [address] [place], [address], 11/14/2024 12:20:42 11/12/19 25 11/14/2024 ALLER GENS, ZONE 1 D152-KgH nettle <0.10 kU/L class 0 Not Available [facility] ([facility]) [address] [place], [address], 11/14/2024 12:20:42 11/12/19 25 11/14/2024 IMMUN OGLOB ULIN E, TOTAL immunoglobul in E, total 2 IU/mL 6-495 below low normal Not Available [facility] ([facility]) [address] [facility], [place], [address], 11/14/2024 12:20:42 10/08/19 25 10/07/2024 CT, maxil lofac ial, w/o contr ast No observ ation record ed. [email or web address] [facility] [address], [address], 10/09/2024 09:16:23 10/08/19 25 10/07/2024 CT, maxil lofac ial, w/o contr ast No observ ation record ed. [email or web address] [facility] [address], [address], 10/09/2024 09:16:23 10/08/19 25 10/07/2024 CT, maxil lofac ial, w/o contr ast No observ ation record ed. BARCODE [facility] [address], [address], 10/08/2024 16:03:22 11/12/19 25 mary metry testi ng* No observ ation record ed. [email or web address] Not Available 2024 18:02:42 Result Notes None recorded. Problems Name Problem SNOMED Code Status Onset Date Resolution Date Notes Provider Name and Address Organization Details Recorded Time Severe obesity 93631762866 104 Active 2020 Morbid (severe) obesity due to excess calories; Note: Date Diagnosed : 06/16/2021 11:31 AM (E66.01) Not Available [facility] 4 03:25:06 Obstructi ve sleep apnea syndrome 85241620 Active 2020 Obstructi ve sleep apnea (adult) (pediatri c); Note: Date Diagnosed : 06/16/2021 11:31 AM (G47.33) Not Available [facility] 4 03:25:07 Uncomplic ated asthma 806794547 Active 2020 Unspecifi ed asthma, uncomplic ated; Note: Date Diagnosed : 06/16/2021 11:31 AM (J45.909) Not Available [facility] 4 03:25:07 Allergic rhinitis caused by pollen 92393854 Active 2020 Allergic rhinitis due to pollen; Note: Date Diagnosed : 06/16/2021 11:31 AM (J30.1) Not Available [facility] 4 03:25:06 Chronic sinusitis 40965531 Active 2023 Lilliam marin [place] - [facility] 4 11:00:07 Atypical facial pain 56938306 Active 2024 Lilliam marin, YASMEEN - [facility] 5 15:35:35 Allergic rhinitis 20454894 Active 2024 [facility] [address] [facility],[place] [address], [place], [address] , [facility] - [facility] 5 09:19:15 Posterior rhinorrhe a 23406453 Active 2024 FER ZAVALA MD [address] [facility],[place] [address], [place], [address] , [facility] - [facility] 5 08:49:08 Chronic rhinitis 16304135 Active 2024 FER ZAVALA MD [address] [facility],[place] [address], [place], [address] , [facility] - [facility] 5 08:49:14 Problem Notes None recorded. Procedures Surgical History Date Name Laterality Status Provider Name and Address Organization Details Recorded Time 4 JMSNasal/Sinus Endoscopy completed Lilliam Velazquez [place] - [facility] 09/19/2024 12:23:56 Imaging Results None recorded. Procedure [...] mg tablet 12/31 completed Medicati on ID: [id number] B rand Name: furosemi de Send Method: [...] mg tablet 12/31 completed Medicati on ID: [id number] B rand Name: metoprol ol tartrate Send [...] mg capsule 11/12 completed Medicati on ID: [id number] B rand Name: gabapent in Send Method: [...] %) nasal spray active Medicati on ID: [id number] B rand Name: nessasti braeden Send Method: [...] mg tablet 12/31 completed Medicati on ID: [id number] B rand Name: spironol actone S end [...] layed release 12/31 completed Medicati on ID: [id number] B rand Name: Prilosec OTC Send Method: [...] unit) capsule 12/31 completed Medicati on ID: [id number] B rand Name: Vitamin D3 Send Method: E-Prescr ibed Sub s Allowed: subs OK Medic ationGen ericName : Vitamin D3 Not Available Not Available Not Available Linzess 145 mcg capsule TAKE 1 CAPSULE BY MOUTH ONCE DAILY active Not Available Not Available No t Available Incruse Ellipta 62.5 mcg/actua tion powder for inhalatio n 12/31 completed Medicati on ID: [id number] B rand Name: Incruse Ellipta Send Method: E-Prescr ibed Sub s Allowed: subs OK Speci al Instruct ion: INHALE 1 PUFF BY MOUTH ONCE DAILY Me dication GenericN judith: Incruse Ellipta Not Available Not Available Not Available Breo Ellipta 200 mcg-25 mcg/dose powder for inhalatio n 12/31 completed Medicati on ID: [id number] B rand Name: Breo Ellipta Send Method: [...] Updated DateTime 11/04/2024 165.1 cm 45.8 kg/m2 944787.9 g Emily Ba MA - [facility] 11/04/2024 14:55:31 Date Recorded Body height Body mass index (BMI) Body weight Oxygen saturation Heart rate Systolic And Diastolic Systolic And Diastolic Provider Name and Address Organization Details Last Updated DateTime 165.1 cm 45.8 kg/m2 015520. 9 g 98 % 76 /min 160/94 mm[Hg] 172/96 mm[Hg] ETELVINA LANCASTER, [facility] 100 [facility] [[email or web address] [address], [place], [address], [place] - [facility] 5 10:14:58 Date Recorded Body height Body weight Provider Name and Address Organization Details Last Updated DateTime 12/31/2024 165.1 cm 751189.9 g Susan Crum PA - [facility] 12/31/2024 08:32:27 Date Recorded Body weight Body mass index (BMI) Body height Provider Name and Address Organization Details Last Updated DateTime 09/19/2024 877023.27 g 46.4 kg/m2 165.1 cm Jessica Noé [place] - [facility] 09/19/2024 10:19:27 Social History Question Answer Notes LastModified by Organizat ion Details LastModified Time Tobacco Smoking Status Former Smoker ETELVINA MARTIN, [facility] [address] [facility],[address], [address], [facility] - [facility] 11/12/2024 09:17:45 When Did You Quit Smoking? [...] Emphysema N Migraines N Thyroid Problems N COPD N Depression N Developmental Delay N Glaucoma N Nasal [...] ICD10 Code Diagnosis IMO Codes Diagnosis Note [id number] FER ZAVALA MD [facility] [address] [place] [address] 09/19/2024 10:02:24 09/19/2024 11:03:03 Allergic rhinitis caused by pollen 12980063 J30.1 Chronic sinusitis 554184 00 J32.9 [id number] LILLIAM VELAZQUEZ PA-C [facility] [address] [address] 11/04/2024 14:44:00 11/04/2024 15:08:34 Allergic rhinitis caused by pollen 11656125 J30.1 Atypical facial pain 713 49124 G50.1 [id number] [facility], [facility] Allergy [address] [place] [address] 11/12/2024 08:46:13 11/12/2024 10:45:34 Allergic rhinitis caused by pollen 09547491 J30.1 [id number] FER ZAVALA MD [facility] [address] [address] 12/31/2024 08:26:16 12/31/2024 08:52:00 Obstructive sleep apnea syndrome 98837756 G47.33 Posterior rhinorrhea 758 05502 R09.82 Chronic rhinitis 7334259 6 J31.0 Health Concerns Section Related Observation LastModified by Organization Detai ls LastModified Time None Recorded Concern Status LastModified by Organization Details LastModified Time None Recorded Advance Directives Directive None Recorded Payers Insurance Date Sequence Insurance Name Policy Number Policy Mei Covered Member ID Mei Member ID Guarantor Name 06/15/2025 1 [place] [employer] Lynnette Mcgill [id number] Lynnette Mcgill 01/07/2025 2 [place] [email or web address] Lynnette Mcgill [id number] Lynnette Mcgill Notes Date Note Type Note [...] left upper molars. FER RIVERA MD [address] [facility] [address], [place], [address], [facility] - [facility] 09/19/2024 12:45:42 11/04/2024 text/html ROS as noted in the [facility] 63 year old female presents to review CT sinus which was performed at [facility] 10/07/24. She reports that her left maxillary pain is improving. She has allergy tested scheduled. SHRAVAN JUDD MD [address] [facility] [place],[address], [address], [facility] - [facility] 11/06/2024 08:24:49 11/12/2024 text/html Pt presents for allergy testing. Due to elevated bp due to holding her beta ghislaine and other 3 meds and having poor pfts Dr. Hernandez wanted pt to have RAST and to follow up with Dr. Rivera to figure out next steps ETELVINA LANCASTER, [facility] [address] [facility] [address] [place] [address], [address], [facility] 11/12/2024 10:45:27 12/31/2024 text/html Patient with persistent [...] -6hours per night FER RIVERA MD [address] [facility] [address], [place], [address], [facility] 12/31/2024 08:51:29 OBGyn Episode No OBEpisode recorded.
--- OUTSIDE RECORDS SUMMARY | 2025-09-25 10:08 | XMS_ITS | Clinical Summary ---
Author Organization [facility] Address [address] [place] [address] Phone Care Team Providers Care Car Installations Supervisor Name Role Phone Yovanny Noel MD Primary Care Provider [phone] Allergies Active Allergy Reactions Criticality Noted Date [...] DAILY. STOP POTASSIUM SUPPLEMENT. 1 Active Tiotropium Gordo Monohydrate 1.25 MCG/ACT aerosol solution Inhale 1 [...] Obstructive sleep apnea syndrome 02/07/2018 Overview (03/26/2021): [facility] Home Sleep Apnea Test: Date 04/30/2019; [...] this topic Insurance Medicare Medicaid [place] Medicaid [place] Medicare Care Teams Car Installations Supervisor Relationship Specialty Start Date End Date Yovanny Noel MD [address] [place] [address] , [address] [place] [address] PCP - General Medical Oncology 01/18/24
--- OUTSIDE RECORDS SUMMARY | 2025-09-25 10:08 | XMS_ITS | Clinical Summary ---
Author Organization [facility] Address [address] [place] [address] Phone Care Team Providers Care Auditing Specialist Name Role Phone Yovanny Noel MD Primary Care Provider [phone] Allergies Active Allergy Reactions Criticality Noted Date [...] DEMI (obstructive sleep apnea) 02/07/2018 Overview (08/26/2024): [facility] Home Sleep Apnea Test: Date [...] Encounters Date Type Department Care Team Description 09/23/2025 Telephone Lung Screening Program - [address] [address] Sara Reyes [place] 09/08/2025 9:30 AM EST Lab Draw Station - 175 [facility] 175 [facility] [address] [place] [phone] Chronic constipation; Rectal bleeding; Prediabetes 09/08/2025 9:15 AM EST Office Visit Bariatric Surgery - [place] 175 [facility] [address] [place] [phone] Julian Hubbard MD DEMI (obstructive sleep apnea) (Primary Dx); Prediabetes; Class 3 severe obesity due to excess calories with body mass index (BMI) of 45.0 to 49.9 in adult, unspecified whether serious comorbidity present (CMS/HCC V24, CMS/HCC V28) 09/08/2025 Results Follow-Up Gastroenterology - [address] [place] [address] Monty Phipps MD 08/06/2025 10:20 AM EST - 08/06/2025 11:59 PM EST Hospital Encounter [facility] [address] [place] [phone] Encounter for screening mammogram for breast cancer Discharge Disposition: Home or Self Care 08/03/2025 11:15 AM EST Lab Draw Station - [address] [phone] Other constipation (Primary Dx); Hemorrhage of rectum and anus 08/03/2025 Results Follow-Up Gastroenterology - [address] [phone] Monty Phipps MD 08/03/2025 Telephone Gastroenterology - [address] [phone] Fawn Charles [place] 07/27/2025 Telephone Gastroenterology - [address] [phone] Monty Phipps MD from Last 3 Months [...] obesity wit h BMI of 50.0-59.9, adult ([facility]) Hyperlipidemia 12/04/2017 DX:Hyperlipidemi a Nontoxic uninodular goiter 12/04/2017 DX:No ntoxic uninodular goiter Hypertension 12/04/2017 DX:Hypertension Asthma 12/04/2017 DX:Asthma Lumbar radiculopathy 12/04/2017 DX:Lumbar r adiculopathy Eating disorder, unspecified 08/09/2021 DX: Eating disorder, unspecified; COMMENT: Tiffanie Benitez PhD Left ventricular hypertrophy 05/21/2019 DX: Left ventricular hypertrophy DEMI (obstructive sleep apnea) 02/07/2018 DX :DEMI (obstructive sleep apnea); COMMENT: [facility] Home Sleep Apnea Test: Date [...] Info) Description 10/14/2025 3:30 PM EST Appointment [facility] CT Scan [address] [place] [phone] 10/28/2025 9:30 AM EST Office Visit Gastroenterology - 299 [facility] 299 [facility] [address] [place] [phone] Amee Dean PA 299 [facility] [address] [place] [address] 03/25/2026 11:15 AM EDT Office Visit Bariatric Surgery - [place] 175 [facility] [address] [place] [phone] Julian Hubbard MD [address] [place] [phone] Health Maintenance Due Date Last Done Comments [...] Depression Screening 10/01/2024 07/08/2024 COVID-19 Vaccine ( season) 2025 Influenza Vaccine (#1) 2025 Cholesterol [...] K/mcL LAB HEMETOLOGY METHOD 09/08/2025 10:24 AM [facility] RBC 3.90 3.80 - 4.80 M/mcL LAB HEMETOLOGY METHOD 09/08/2025 10:24 AM [facility] Hemoglobin 10.4(L) 11.5 - 16.0 g/dL LAB HEMETOLOGY METHOD 09/08/2025 10:24 AM [facility] Hematocrit 33.9(L) 35.0 - 47.0 % LAB HEMETOLOGY METHOD 09/08/2025 10:24 AM [facility] MCV 86.0 79.0 - 98.0 FL LAB HEMETOLOGY METHOD 09/08/2025 10:24 AM [facility] MCH 26.4(L) 27.0 - 32.0 pcg LAB HEMETOLOGY METHOD 09/08/2025 10:24 AM [facility] MCHC 30.7(L) 32.0 - 37.0 g/dL LAB HEMETOLOGY METHOD 09/08/2025 10:24 AM [facility] RDW 12.5 11.0 - 15.0 % LAB HEMETOLOGY METHOD 09/08/2025 10:24 AM [facility] Platelets 258 130 - 400 K/mcL LAB HEMETOLOGY METHOD 09/08/2025 10:24 AM [facility] MPV 11.1(H) 7.0 - 11.0 FL LAB HEMETOLOGY METHOD 09/08/2025 10:24 AM [facility] NRBC 0.0 <1.0 % LAB HEMETOLOGY METHOD 09/08/2025 10:24 AM [facility] NRBC Absolute 0.00 <0.10 K/mcL LAB HEMETOLOGY METHOD 09/08/2025 10:24 AM [facility] Neutrophils Relative 43.1 % LAB HEMETOLOGY METHOD 09/08/2025 10:24 AM [facility] Lymphocytes Relative 42.4 % LAB HEMETOLOGY METHOD 09/08/2025 10:24 AM [facility] Monocytes Relative 9.4 % LAB HEMETOLOGY METHOD 09/08/2025 10:24 AM [facility] Eosinophils Relative 3.9 % LAB HEMETOLOGY METHOD 09/08/2025 10:24 AM [facility] Basophils Relative 1.2 % LAB HEMETOLOGY METHOD 09/08/2025 10:24 AM [facility] Immature Granulocytes Relative 0.0 % LAB HEMETOLOGY METHOD 09/08/2025 10:24 AM [facility] Neutrophils Absolute 2.10 1.50 - 7.00 K/mcL LAB HEMETOLOGY METHOD 09/08/2025 10:24 AM [facility] Lymphocytes Absolute 2.07 1.00 - 5.00 K/mcL LAB HEMETOLOGY METHOD 09/08/2025 10:24 AM [facility] Monocytes Absolute 0.46 0.20 - 1.00 K/mcL LAB HEMETOLOGY METHOD 09/08/2025 10:24 AM EST [facility] Eosinophils Absolute 0.19 0.00 - 0.50 K/[facility] LAB HEMETOLOGY METHOD 09/08/2025 10:24 AM EST [facility] Basophils Absolute 0.06 0.00 - 0.20 K/[facility] LAB HEMETOLOGY METHOD 09/08/2025 10:24 AM EST [facility] Immature Granulocytes Absolute 0.00 0.00 - 0.03 K/[facility] LAB HEMETOLOGY METHOD 09/08/2025 10:24 AM EST [facility] Blood Venous blood specimen / Unknown Venipuncture / Unknown 09/08/2025 9:18 AM EST 09/08/2025 9:18 AM EST us Monty Phipps MD LAB BLOOD ORDERABLES Final Result [facility] [address] [place] [address], [place] [phone] * Hemoglobin A1c (09/08/2025 9:18 AM EST) Hemoglobin A1C 5.2 <6.5 % LAB CHEMISTRY METHOD 09/10/2025 1:43 PM EST [facility] Mean Bld Glu Estim. 103 mg/dL LAB CHEMISTRY METHOD 09/10/2025 1:43 PM EST [facility] Blood Venous blood specimen / Unknown Venipuncture / Unknown 09/08/2025 9:18 AM EST 09/08/2025 9:18 AM EST Julian Hubbard MD LAB BLOOD ORDERABLES Final R esult [facility] [address] [place] [address], [place] [phone] * MG Mammo Digital Screening w Nikita bilat (08/06/2025 10:47 AM EST) Anatomical Region Laterality Modality Breast Bilateral Mammography 08/06/2025 10:5 7 AM EST Impressions 08/06/2025 11:21 AM EST Benign. BI-RADS CATEGORY: 1 - NEGATIVE RECOMMENDATION: Screening bilateral mammogram is recommended in 1 year. Mammo Location: [facility], [address] [place] [address], [id number], . -------- FINAL REPORT -------- Dictated By: Praful Og Dictated Date: 08/06/2025 10:57 ET Assigned Physician: Praful Og Reviewed and Electronically Signed By: Praful Og Signed Date: 08/06/2025 11:21 ET Workstation ID: [id number] Transcribed By: Self Edit Transcribed Date: 08/06/2025 [...] year. Mammo Location: [facility], [address] [place], [place], [address], . -------- FINAL REPORT -------- Dictated By: Praful Og Dictated Date: 08/06/2025 10:57 ET Assigned Physician: Praful Og Reviewed and Electronically Signed By: Praful Og Signed Date: 08/06/2025 11:21 ET Workstation ID: [id number] Transcribed By: Self Edit Transcribed Date: 08/06/2025 10:57 ET Self Referral Sppl IMG BI PROCEDURES Final Resul t * Depression Screening (07/08/2024) Pathologist [facility] Depression Screening Abstracted Historical Provider MD HEALTH MAINTENANCE Final Result * Annual BMP Blood Test (01/30/2023) Pathologist [facility] Annual BMP Blood Test Abstracted Historical Provider MD HEALTH MAINTENANCE Final Result * (ABNORMAL) Lipid panel (04/22/2021) [facility] LDL/HDL Ratio 6(A) 0 - 4 Triglycerides 159(A) 0 - 150 mg/dL Cholesterol 273(A) 0 - 200 mg/dL HDL 48 >=40 mg/dL LDL Cholesterol 194(A) 0 - 100 mg/dL Blood Venous blood specimen / Unknown Historical Provider MD LAB BLOOD ORDERABLES Frieda l Result from Last 3 Months or Most Recently Relevant to Health Maintenance Insurance MEDICAID - [place] MEDICARE Care Teams Auditing Specialist Relationship Specialty Start Date End Date Yovanny Noel MD [address] [address] PCP - General Oncology 07/25/24
--- OUTSIDE RECORDS SUMMARY | 2025-09-25 10:08 | XMS_ITS | Encounter Summary ---
Author Organization [facility] Address [address] [place] [address] Care Team Providers Care Slab Tripper Name Role Phone Yovanny Noel MD Primary Care Provider [phone] Reason for Visit * Reason Onset Date Comments Rectal Bleeding 07/27/2025 Encounter Details Date Type Department Care Team (Late st Contact Info) Description 07/27/2025 Telephone Gastroenterology - [address] [facility] [address] [place] [phone] Monty Phipps MD [address] [address] Social History Tobacco Use Types Packs/Day Years [...] Info) Description 10/14/2025 3:30 PM EST Appointment [facility] CT Scan [address] [place] [phone] 10/28/2025 9:30 AM EST Office Visit Gastroenterology - 299 [facility] 299 [facility] [address] [place] [address] Amee Dean PA 299 [facility] [address] [place] [address] 03/25/2026 11:15 AM EDT Office Visit Bariatric Surgery - [place] 175 [facility] [address] [place] [phone] Julian Hubbard MD [address] [place] [phone] documented as of this encounter Visit Diagnoses Diagnosis Chronic constipation- Primary Unspecified constipation Rectal bleeding Hemorrhage of rectum and anus documented in this encounter Care Teams Slab Tripper Relationship Specialty Start Date End Date Yovanny Noel MD [address] [address] PCP - General Oncology 07/25/24 documented as of this encounter
--- OUTSIDE RECORDS SUMMARY | 2025-09-25 10:08 | XMS_ITS | Patient Health Record ---
Author Organization Yovanny Noel III, MD Address [address] [place] [address] Care Team Providers Care Netbackup Engineer Name Role Phone Dr. Yovanny Noel III Primary Care Provider [phone] Allergies Allergen (clinical drug ingredient) Drug/Non Drug [...] Negative Negative - Menstrating No Routine Culture Reviewed date:09/24/2025 07:00:11 AM Interpretation: Performing Lab:[facility], [address] [place] [phone] Notes/Report: LEFT NOSTRIL O:STAAUR Staphylococcus aureus Routine Culture Quant Org ID Routine Culture 2+ Clindamycin <=0.25 Erythromycin >=8 Levofloxacin 0.25 Oxacillin <=0.25 Penicillin-G >=0.5 Tetracycline <=1 Trimethoprim/Sulfamethoxa zole <=10 Complete Blood Count no Diff Reviewed date:12/27/2024 08:01:52 AM Interpretation: Performing Lab:[facility], [address] [place] [phone] Notes/Report: White Blood Count 5.0 4.8-10.8 X10*3/uL [...] Panel Reviewed date:12/27/2024 08:01:52 AM Interpretation: Performing Lab:[facility], [address] [place] [phone] Notes/Report: Sodium 141 135-145 mmol/L Potassium 3.8 [...] Sensitivity Reviewed date:12/27/2024 08:01:52 AM Interpretation: Performing Lab:[facility], [address] [place] [phone] Notes/Report: Troponin-I High Sensitivity < 2.7 <3.5-17.0 ng/L The Weiss high sensitivity Troponin-I results should be used in conjunction with other diagnostic information such as ECG, clinical observations and information, and patient symptoms to aid in the diagnosis of NH. B Type Natriuretic Peptide Reviewed date:12/27/2024 08:01:52 AM Interpretation: Performing Lab:[facility], [address] [place] [phone] Notes/Report: B Type Natriuretic Peptide 64 <100 pg/mL US arterial duplex LE LT Reviewed date:04/03/2025 07:16:33 PM Interpretation: Performing Lab: Notes/Report: [address] [address] Ultrasound Report Signed Patient: Lynnette Mcgill MR#: [id number] : 1960 Acct:[id number] Age/Sex: 64 / F ADM Date: 03/11/25 Loc: . Attending Dr: Yovanny Noel MD Ordering Physician: Yovanny Noel MD Date of Service: 03/11/25 Procedure(s): US arterial duplex LE LT Accession Number(s): [id number] cc: Yovanny Noel MD; Franklin Eason MD [...] in OV> 03/12/25904 DD/ 1 TD/TT: 03/11/25938 Laboratory Monitor: [place] [address] Ultrasound Report Signed Patient: Amy Mcgill MR#: [id number] : 1960 Acct:[id number] Age/Sex: 64 / F ADM Date: 03/11/25 Loc: . Attending Dr: Yovanny Noel MD Ordering Physician: Yovanny Noel MD Date of Service: 03/11/25 Procedure(s): US arterial duplex LE LT Accession Number(s): [id number] cc: Yovanny Noel MD; Franklin Eason MD [...] in OV> 03/12/25904 DD/ 1 TD/TT: 03/11/25938 Laboratory Monitor: Basic Metabolic Panel Reviewed date:09/24/2025 07:00:11 AM Interpretation: Performing Lab:[facility], [address] [place] [phone] Notes/Report: Sodium 145 135-145 mmol/L Potassium 3.9 [...] mg/dL Calcium 9.5 8.4-10.2 mg/dL Lipid Panel Reviewed date:09/24/2025 07:00:11 AM Interpretation: Performing Lab:[facility], [address] [place] [phone] Notes/Report: Triglycerides 61 <150 mg/dL Desirable Triglyceride: [...] in patients with liver disease. Gram stain Reviewed date:09/24/2025 07:00:10 AM Interpretation: Performing Lab:[address] [address] Notes/Report: LEFT NOSTRIL Gram stain Gram stain results: Gram stain No polys Gram stain 1+ epithelial cells Gram stain 1+ Gram-positive cocci Complete Blood Count Auto Di ff Reviewed date:09/24/2025 07:00:10 AM Interpretation: Performing Lab:[address] [address] Notes/Report: White Blood Count 4.1 4.8-10.8 X10*3/uL Red Blood Count 3.97 4.20-5.50 X10*6/uL Hemoglobin 10.5 12.0-16.0 g/dl Hematocrit 33.3 37.0-47.0 % Mean Corpuscular Volume 83.9 80.0-98.0 fL Mean Corpuscular Hemoglobin 26.4 27.0-33.0 pg Mean Corpuscular HGB Conc 31.5 31.0-35.0 g/dl Red Cell Distribution Width 12.4 11.0-16.0 % Platelet Count 208 160-400 X10*3/uL Mean Platelet Volume 10.5 9.4-12.3 fL Neutrophils Percent Auto 45.1 45-73 % Imm Gran Pct Auto 0.5 0.0-0.4 % Lymphocytes Percent Auto 42.4 20-40 % Monocytes Percent Auto 7.1 2-11 % Eosinophils Percent Auto 3.2 0-4 % Basophils Percent Auto 1.7 0-2 % NRBC Pct Auto 0.0 0.0-0.2 /100WBC Neutrophils Absolute Auto 1.8 2.0-8.3 x10*3/u L Imm Gran Abs Auto 0.02 0.00-0.03 X10*3/uL Lymphocytes Absolute Auto 1.7 1.2-4.9 X10*3/u L Monocytes Absolute Auto 0.3 0.1-1.2 X10*3/uL Eosinophils Absolute Auto 0.1 0.0-0.4 X10*3/u L Basophils Absolute Auto 0.1 0.0-0.2 X10*3/uL NRBC Abs Auto 0.000 0.0-0.012 X10*3/uL Comprehensive Met. Panel Reviewed date:09/24/2025 07:00:10 AM Interpretation: Performing Lab:[facility], [address] [place] [phone] Notes/Report: Sodium 142 135-145 mmol/L Potassium 4.2 3.3-5.1 mmol/L Chloride 115 96-108 mmol/L Carbon Dioxide 21 22-29 mmol/L Anion Gap 10 12-20 Blood Urea Nitrogen 32 9-16 mg/dL Creatinine 1.29 0.5-1.4 mg/dL Creatinine Clr Calc Pharmacy 57.9 Provided height and weight: 165.1 cm, 120 kg. eGFR (calculated from the MDRD study equation) and eCrCl (calculated from the Cockcroft-Gault equation) are based on different parameters and may not yield comparable results. If eCrCl result is absurd, please check patient's height/weight. Estimated Glomerular Filt Rate 42 Chronic Kidney Disease: Estimated GFR < 60 mL/min/1.73m2 Severe Kidney Disease: Estimated GFR < 15 mL/min/1.73m2 Glucose Random 82 60-115 mg/dL Calcium 9.8 8.4-10.2 mg/dL Bilirubin Total 0.3 0.0-1.0 mg/dL Aspartate Amino Transferase 22 5-31 U/L Alanine Aminotransferase 11 0-31 U/L Total Protein 7.1 6.5-8.0 g/dL Albumin Level 4.2 3.5-5.0 g/dL Alkaline Phosphatase 105 39-117 U/L Troponin-I High Sensitivity Reviewed date:09/24/2025 07:00:10 AM Interpretation: Performing Lab:[facility], [address] [place] [address] Notes/Report: Troponin-I High Sensitivity < 2.7 <3.5-17.0 ng/L The Weiss high sensitivity Troponin-I results should be used in conjunction with other diagnostic information such as ECG, clinical observations and information, and patient symptoms to aid in the diagnosis of NH. CT head/brain wo con Reviewed date:09/24/2025 07:00:10 AM Interpretation: Performing Lab: Notes/Report: [facility] [address] [place] [address] CT Scan Report Signed Patient: Lynnette Mcgill MR#: [id number] : 1960 Acct:[id number] Age/Sex: 64 / F ADM Date: 09/22/25 Loc: HO.ED Attending Dr: Ordering Physician: Kang Zhao Date of Service: 09/22/25 Procedure(s): CT head/brain wo IV con Accession Number(s): [id number] cc: Kang Zhao; Yovanny Noel MD Report Number: [id number]: Total DLP = 655.00 mGy-cm Reason for Exam: hypertensive and headache EXAMINATION: CT HEAD WITHOUT IV CONTRAST HISTORY: hypertensive and headache. TECHNIQUE: Unenhanced helical CT of the head was performed per standard departmental protocol. Coronal and sagittal reformats of the head were also evaluated. One or more of the following techniques was used for dose reduction: Automated exposure control, adjustment of the mA and/or kV according to patient size, use of iterative reconstruction technique. DLP: 655 mGy-cm COMPARISON: There are no prior studies available for comparison. FINDINGS: BRAIN: The brain parenchyma is unremarkable. There is normal alcocer/white differentiation. The ventricular system is normal in size and configuration. There is no mass effect or midline shift. No intra- or extra-axial fluid collections are identified. SINUSES: The visualized paranasal sinuses are clear. The mastoid air cells and middle ear cavities are well pneumatized. ORBITS: The visualized orbits are unremarkable. BONES/SOFT TISSUES: The extracranial soft tissues are unremarkable. The calvarium is intact. No suspicious lytic or sclerotic lesions. CT/CT head/brain wo IV con IMPRESSION: Unremarkable unenhanced head CT. Electronically signed by: Yovanny Diallo MD 09/22/2025 11:31 AM EST Dictated By: Yovanny Diallo MD Signed By: <Electronically signed by Yovanny Diallo MD in OV> 09/22/25 1131 DD/ 1111 TD/TT: 09/22/25 1120 Laboratory Monitor: [place] [address] CT Scan Report Signed Patient: Amy cMgill MR#: [id number] : 1960 Acct:[id number] Age/Sex: 64 / F ADM Date: 09/22/25 Loc: HO.ED Attending Dr: Ordering Physician: Kang Zhao Date of Service: 09/22/25 Procedure(s): CT head/brain wo IV con Accession Number(s): [id number] cc: Kang Zhao; Yovanny Noel MD Report Number: [id number]: Total DLP = 655.00 mGy-cm Reason for Exam: hypertensive and headache EXAMINATION: CT HEAD WITHOUT IV CONTRAST HISTORY: hypertensiv e and headache. TECHNIQUE: Unenhanced helical C T of the head was performed per standard departmental protoco l. Coronal and sagittal reformats of the head were also evaluated. One or more of the following techniques was used for dose reduction: Automated exposure control, adjustment of the mA and/or kV according to brodie ent size, use of iterative reconstruction technique. DLP: 655 mGy-cm COMPARISON: There ar e no prior studies available for comparison. FINDINGS: BRAIN: The brain parenchyma is unremarkable. There is normal alcocer/white differentiation. The ventricular system is normal in size and configuration. There is no mass effect or midline shift. No intra- or extra-axia l fluid collections are identified. SINUSES: The visuali zed paranasal sinuses are clear. The mastoid air cells and middle ear cavities are well pneumatized. ORBITS: The visualiz ed orbits are unremarkable. BONES/SOFT TISSUES: The extracranial soft tissues are unremarkable. The calvarium is intact. No suspicious lytic or sclerotic lesions. ___ CT/CT head/brain wo IV con IMPRESSION: Unremarkable unenhan viviana head CT. Electronically earline d by: Yovanny Diallo MD 09/22/2025 11:31 AM [facility] Dictated By: Yovanny Diallo MD Signed By: <Electronically signed by Yovanny Diallo MD in OV> 09/22/25 1131 DD/ 1111 TD/TT: 09/22/25 1120 Laboratory Monitor: Reason For Referral Reason increased pain down right leg even at rest Diagnosis 1 Lumbar radiculopathy (M54.16) Referral Organization Yovanny Noel III, MD Referring Provider First Name Yovanny Referring Provider Last Name Sadie Referring Provider Speciality Internal edicine Referred Provider [facility] [place] Referred Provider Specialty Physical Med icine General Notes Leatha Wood CMA 10/08 10:42:43 AM >Patient to have MRI spine done at [facility] after that result comes in ref patient back to [facility] to discuss possible spinal cord stimulator insertion, Leatha Wood CMA 10/15/2024 02:34:17 PM >ref/demo/progress note and MRI report faxed to [facility] at regular fax number and fax # [phone] they will call patient to set up appt, Leatha Wood [facility] 10/21/2024 09:59:28 AM > I called spoke to patient she stated she has appt at [facility] for 11/19/2024 Referral Priority Routine Referral [...] 03/05/2025 03:53:54 PM >Spoke with Marixa at [facility] stated they have reached out to patient and left a message with no call back. Dr. Noel office reached out to patient and left a message to have the patient call their office to schedule an appointment, number was left on patient voicemail., Marixa Zimmerman 03/05/2025 04:08:27 PM > spoke with patient and gave her the number to [facility]. Patient was asked to call the office back to make us aware of when the appointment is. Referral Priority Routine Referral Appointment Date 04/09/2025 Reason left leg pain Diagnosis 1 Pain of left lower e xtremity (M79.605) Referral Organization Yovanny Noel III, MD Referring Provider First Name Yovanny Referring Provider Last Name Sadie Referring Provider Speciality Internal edicine Referred Organization [facility] nt Referred Provider Franklin Eason Referred Address [address] [place] [phone], Referred Provider Specialty Vascular Fred meg General Notes Leatha Wood CMA 02/02 01:23:25 PM > called Vilma at Dr Eason office [phone] pt has appt for a vascular ultrasound [...] Referring Provider Speciality Internal edicine Referred Provider [facility] er, Pain Management Referred Provider Specialty Pain Medicin e General Notes Leatha Wood CMA 03/10 09:50:49 AM >ref/demo/progress note /MRI faxed to Pain management at , Leatha Wood CMA 03/17/2025 11:18:38 AM > I called pain management [phone] they stated pt has appt on 03/30/2025 12:00pm Referral Priority Routine Referral Appointment Date 03/30/2025 Reason lumbar back pain e valuate to see if can have spinal stimulator Diagnosis 1 Lumbar radiculopathy (M54.16) Referral Organization Yovanny Noel III, MD Referring Provider First Name Yovanny Referring Provider Last Name Sadie Referring Provider Speciality Internal M edicine Referred Provider [facility] Referred Provider Specialty Orthopedic S urgery General Notes Leatha Wood [facility] 04/02 11:34:20 AM >ref/demo/progress notes/x rays faxed to [facility] patient called and made aware of this and told to call to set up her appt with them, Leatha Wood [facility] 04/06/2025 10:33:13 AM >pt called stated she has appt today at [facility] 04/06/2025 at 3:30pm Referral Priority Routine [...] Problem Status W/U Status Risk Notes Problem 6058004 Former smoker (Z87.891) Active confirmed She is highly motivated to not smoke. We have discussed a strategy for maintenance of abstinence in times of stress and illness. Problem 390411998 Asthma (J45.909) Active confirmed She has bbeen free of asthma lately. There was no wheezing today. She was breathing room air comfortably. Current therapy was continued. Problem 227177850 Lumbar radiculopathy (M54.16) Active confirmed She has undergone the L5-S1 fusion without complication. She continues to have postoperative pain. She is receiving hhome physical therapy. She is encouraged to continue to participate to be optimistic about the future.. Problem Hyperlipidemia (59227993) Hyperlipidemia, unspecified (E78.5) Active confirmed Comprehensive blood work with a fasting lipid profile has been ordered. No change in her medications was made today. Problem Chronic sinusitis (53802541) Chronic sinusitis, unspecified (J32.9) Active confirmed She has been given another course of Augmentin. She reports today that she is beginning to improve and brief more normally. A CT scan of her skull and sinuses showed no significant abnormality. Problem 90585524 Postnasal drip (R09.82) Active confirmed Her symptoms have resolved and she says she feels well today. She is breathing comfortably. Her medications were continued. Problem 25469250 Essential hypertension (I10) Active confirmed She is complian t with all of her medications but in significant pain. Her systolic blood pressure is higher than optimal. We will address this with medication, sodium restriction, weight loss and when she has recovered from surgery, physical activity. Problem 44144463 Other and unspecified hyperlipidemia (E78.5) Active confirmed Comprehensive blood work with a fasting lipid profile is being done periodically.The most recent total cholesterol was within normal limits. Problem CVA - Cerebrovascular accident (191561918) CVA (cerebral vascular accident) (I63.9) Active confirmed She continues t o have mild residual numbness in left side of her face but no muscle weakness is noted. She is able to conduct all of the activities of daily living. Her blood pressure is stable and her weight is dropping steadily. She is consuming a healthy, low-sodium diet. Problem 584324431179628 Left foot pain (M79.672) Active confirmed This has been present for 2 weeks. It is worse when she bears weight. The examination was unremarkable. An x-ray has been ordered. Problem 770507461 Nontoxic uninodular goiter (E04.1) Active confirmed Her thyroid i s not palpable today. She appears to be euthyroid. This problem will be followed closely. Problem 63380347 Vitamin D deficiency (E55.9) Active confirmed She is continuing on vitamin D supplementation. 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 Problem Constipation (53498580) Constipation (K59.00) Active confirmed I gave her instructions to consume one Bolla brands fairly with every breakfast. She will take Senokot twice a day. A followup was arranged. Problem 145808092 Morbid obesity (E66.01) Active confirmed She continues t o participate in the weight-loss program. She has lost 12 pounds since October 31, 2024. She will continue on her current therapies without change. She will be seen frequently to weigh her and form of support. Problem 10581316 Sleep apnea in adult (G47.30) Active confirmed She continues to use her CPAP. Problem 93144660 Reactive depression (F32.9) Active confirmed She has been taking citalopram only intermittently. She will continue to take it on a daily basis. Follow-up visit near future was scheduled. Problem 172868997 Pain of left lower extremity (M79.605) Active confirmed Problem Gastroesophageal reflux disease with esophagitis (disorder) (368994505) Gastro-esophage al reflux disease with esophagitis, without bleeding (K21.00) Active confirmed Her reflux symptoms are well controlled with medication. She is avoiding foods and medication that stimulate acid production. Problem 486502680 Stage 3b chronic kidney disease (N18.32) Active confirmed Her current GFR is 38. She is under the care of nephrology. Her hydrochlorothiaz lucie was stopped. Her blood pressure was reasonable today. Problem 18474765 Ulcer of nose (J34.0) Active confirmed There [...] Date Provider Diagnosis Yovanny Noel III, MD [address] [place] [address] [address] [place], [place]ME[place] [address] 10/02/2024 Yovanny Noel Asthma J45.909 ; For augusta smoker Z87.891 ; Essential hypertension I10 ; Morbid obesity E66.01 and Lumbar radiculopathy M54.16 Yovanny Noel III, MD [address] [place] [address] [place] [address] 10/15/2024 Yovanny Noel Asthma J45.909 ; For [...] Reactive depression F32.9 Yovanny Noel III, MD [address] [place] [address] [place] [address] 10/21/2024 Yovanny Noel Asthma J45.909 ; Lum bar radiculopathy M54.16 ; Morbid obesity E66.01 ; Sleep apnea in adult G47.30 ; Vitamin D deficiency E55.9 and Reactive depression F32.9 Yovanny Noel III, MD [address] [place] [address] [place] [address] 10/31/2024 Yovanny Noel Asthma J45.909 ; For augusta smoker Z87.891 ; Essential hypertension I10 ; Morbid obesity E66.01 and Lumbar radiculopathy M54.16 Yovanny Noel III, MD [address] [place] [address] [place] [address] 12/29/2024 Yovanny Noel Asthma J45.909 ; Mor bid obesity E66.01 ; Other and unspecified hyperlipidemia E78.5 ; Nontoxic uninodular goiter E04.1 ; Former smoker Z87.891 ; CVA (cerebral vascular accident) I63.9 ; Sleep apnea in adult G47.30 ; Vitamin D deficiency E55.9 ; Stage 3b chronic kidney disease N18.32 and Constipation K59.00 Yovanny Noel III, MD [address] [place] [address] [place] [address] 01/14/2025 Yovanny Noel Asthma J45.909 ; Oth er and unspecified hyperlipidemia E78.5 ; Nontoxic uninodular goiter E04.1 ; Former smoker Z87.891 ; Essential hypertension I10 ; Reactive depression F32.9 ; Vitamin D deficiency E55.9 ; Stage 3b chronic kidney disease N18.32 and Constipation K59.00 Yovanny Noel III, MD [address] [place] [address] [place] [address] 01/27/2025 Yovanny Noel Morbid obesity E66.0 1 ; Other and unspecified hyperlipidemia E78.5 ; Nontoxic uninodular goiter E04.1 ; Former smoker Z87.891 ; Essential hypertension I10 ; Asthma J45.909 ; CVA (cerebral vascular accident) I63.9 ; Sleep apnea in adult G47.30 ; Reactive depression F32.9 and Lumbar radiculopathy M54.16 Yovanny Noel III, MD [address] [place] [address] [place] [address] 03/03/2025 Yovanny Noel Left foot pain M79.6 72 ; Other and unspecified hyperlipidemia E78.5 ; Nontoxic uninodular goiter E04.1 ; Former smoker Z87.891 ; Essential hypertension I10 ; Asthma J45.909 ; Morbid obesity E66.01 ; Lumbar radiculopathy M54.16 ; Sleep apnea in adult G47.30 and Reactive depression F32.9 Yovanny Noel III, MD [address] [place] [address] [place] [address] 03/31/2025 Yovanny Noel Lumbar radiculopathy M54.16 ; Postnasal drip R09.82 ; Other and unspecified hyperlipidemia E78.5 ; Nontoxic uninodular goiter E04.1 ; Former smoker Z87.891 ; Essential hypertension I10 ; Asthma J45.909 ; Morbid obesity E66.01 ; CVA (cerebral vascular accident) I63.9 ; Stage 3b chronic kidney disease N18.32 and Sleep apnea in adult G47.30 Yovanny Noel III, MD [address] [place] [address] [place] [address] 04/15/2025 Yovanny Noel Former smoker Z87.89 1 ; Postnasal drip R09.82 ; Chronic sinusitis, unspecified J32.9 ; Other and unspecified hyperlipidemia E78.5 ; Nontoxic uninodular goiter E04.1 ; Essential hypertension I10 and Asthma J45.909 Yovanny Noel III, MD [address] [place] [address] [place] [address] 07/31/2025 Yovanny Noel Former smoker Z87.89 1 ; Morbid obesity E66.01 ; Lumbar radiculopathy M54.16 ; Other and unspecified hyperlipidemia E78.5 ; Nontoxic uninodular goiter E04.1 ; Essential hypertension I10 and CVA (cerebral vascular accident) I63.9 Yovanny Noel III, MD [address] [place] [address] [place] [address] 09/08/2025 Yovanny Noel Ulcer of nose J34.0 [...] kidney disease N18.32 Yovanny Noel III, MD [address] [place] [address] [place] [address] 10/17/2024 Yovanny Noel III, MD [address] [place] [address] [place] [address] 10/17/2024 Yovanny Noel III, MD [address] [place] [address] [place] [address] 10/21/2024 Yovanny Noel III, MD [address] [place] [address] [place] [address] 10/27/2024 Yovanny Noel III, MD [address] [place] [address] [place] [address] 03/23/2025 Yovanny Noel III, MD [address] [place] [address] [place] [address] 04/07/2025 Yovanny Noel III, MD [address] [place] [address] [place] [address] 04/23/2025 Yovanny Noel III, MD [address] [place] [address] 04/23/2025 Yovanny Noel III, MD [address] [place] [address] 06/08/2025 Yovanny Noel III, MD [address] [place] [address] 06/10/2025 Yovanny Renasal drip R09.8 2 Yovanny Noel III, MD [address] [place] [address] 06/26/2025 Yovanny Noel III, MD [address] [place] [address] 07/14/2025 Yovanny Noel III, MD [address] [place] [address] 07/28/2025 Yovanny Noel III, MD [address] [place] [address] 07/29/2025 Yovanny Noel III, MD [address] [place] [address] 08/05/2025 Yovanny Noel III, MD [address] [place] [address] [place] [address] 08/12/2025 Yovanny Noel III, MD [address] [place] [address] [place] [address] 08/12/2025 Yovanny Noel Assessments Encounter Date Diagnosis [...] to have postoperative pain. She is [facility]. She is encouraged to [...] it remains high we'll communicate with the wiping rag washer. 03/31/2025 Former smoker (ICD-10 - Z87.891) She [...] it remains high we'll communicate with the wiping rag washer. 04/15/2025 Essential hypertension (ICD-10 - I10) Her blood pressure was slightly high today. She has been compliant with her medications. He was given an appointment in the very near future to return to measure it again. If it remains high we'll communicate with the wiping rag washer. 07/31/2025 Essential hypertension (ICD-10 - I10) She [...] DOPPLER 12/04/2022 Next Appt Details Provider Name:Yovanny Noel , 10/05/2025 10:30:00 AM, [address] [place] [address] [address], [place], [address], Insurance Providers Payer Name Payer Address Payer Phone Subscriber Number Group Number Insured Name Patient Relationship to Insured Coverage Start Date Coverage End Date MEDICARE NGS [address] [place] [address] [id number] Nano Lynnette Self - patient is the insured [place] [address] YASMEEN OLVERA [id number] Nano Lynnette Self - patient is the insured Medical [...]
--- OUTSIDE RECORDS SUMMARY | 2025-09-25 10:09 | XMS_ITS | Encounter Summary ---
Author Organization [facility] Address [address] [place] [address] Care Team Providers Care Fender Mechanic Name Role Phone Yovanny Noel MD Primary Care Provider [phone] Encounter Details Date Type Department Care Team (Late Contact Info) Description 09/08/2025 Results Follow-Up Gastroenterology - [address] [phone] Monty Phipps MD [address] [place] [id number] Social History Tobacco Use Types Packs/Day Years [...] Info) Description 10/14/2025 3:30 PM EST Appointment [facility] CT Scan [address] [place] [phone] 10/28/2025 9:30 AM EST Office Visit Gastroenterology - [address] [phone] Amee Dean PA [address] [place], [place] [address], [place] [address] 03/25/2026 11:15 AM EDT Office Visit Bariatric Surgery - [place] [address] [facility] [address] [place] [phone] Julian Hubbard MD [address] [place] [phone] documented as of this encounter Visit Diagnoses Not on filedocumented in this encounter Care Teams Fender Mechanic Relationship Specialty Start Date End Date Yovanny Noel MD [address] [facility] [address] [place] [address] PCP - General Oncology 07/25/24 documented as of this encounter
--- OUTSIDE RECORDS SUMMARY | 2025-09-25 10:09 | XMS_ITS | Encounter Summary ---
Author Organization [facility] Address [address] [place] [address] Care Team Providers Care Locomotive Driver Name Role Phone Yovanny Noel MD Primary Care Provider [phone] Encounter Details Date Type Department Care Team (Late Contact Info) Description 08/03/2025 Results Follow-Up Gastroenterology - [address] [phone] Monty Phipps MD [address] [place] [phone] Social History Tobacco Use Types Packs/Day Years [...] Info) Description 10/14/2025 3:30 PM EST Appointment [facility] CT Scan [address] [place] [phone] 10/28/2025 9:30 AM EST Office Visit Gastroenterology - [address] [phone] Amee Dean PA [address] [place], [place] [address], [place] [address] 03/25/2026 11:15 AM EDT Office Visit Bariatric Surgery - [place] 175 [facility] [address] [place] [phone] Julian Hubbard MD [address] [place] [phone] documented as of this encounter Visit Diagnoses Not on filedocumented in this encounter Care Teams Locomotive Driver Relationship Specialty Start Date End Date Yovanny Noel MD [address] [facility] [address] [place] [address] PCP - General Oncology 07/25/24 documented as of this encounter
[2025-09-25 10:14] VITALS: BP 152/96; PULSE 65; O2SAT 98; BMI 44.4
--- NOTE | 2025-09-25 10:14 | HO.NEPHOV_ITS ---
Vital Signs 09/25/25 10:14 Height 5 ft 5 in Weight 267 lb BMI 44.4 BP 152/96 H Blood Pressure Location Lt radial Position Sitting Pulse 65 Pulse Source Pulse Oximeter Pulse Oximetry (%) 98 Oxygen Delivery Method Room Air Intake Visit Reasons: 6 MO FU-[facility] Traffic Control Officer Required: No Accompanied by: Self / Same As Patient Allergies No Known Allergies Allergy (Verified 09/25/25 10:17) HPI Comments Details: Lynnette is a 64-year-old woman normal renal function at baseline who recently was found to have a doubling of her serum creatinine. Recently she had left-sided weakness and numbness and she was evaluated at [facility] and was found to have a small CVA. Her blood pressure had not been well controlled. She is now trying to control her blood pressure and also lose weight. She does use her CPAP every night. She has history of gastric bypass surgery. She is not a diabetic. She has been taking YOSEF inhibitor as well as nonsteroidal anti- inflammatories along with hydrochlorothiazide. Her urine output is good. She does not have any new joint swellings, epistaxis, photosensitivity, hematuria, flank pain, history of peripheral arterial disease, history of renal artery stenosis, nephrolithiasis, new skin rashes. Her serum creatinine had improved and stable. Her BP has been uncontrolled and her hydralazine has been increased. 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 CVA (cerebral vascular accident) DEMI on CPAP Dyspnea Chest pressure Asthma Surgical History History of back surgery History of gastric bypass History of left knee surgery History of hysterectomy Family History Mother Breast cancer HTN (hypertension) Father Kidney disease HTN (hypertension) Maternal Uncle Diabetes Son Diabetes Social History Alcohol intake: never Patient Tobacco Use Status: Never used Tobacco Review of Systems Const All systems reviewed & are unremarkable except as noted in HPI and below Physical Exam Vital Signs: Last Vital Signs Pulse 65 09/25/25 10:14 Pulse Ox 98 09/25/25 10:14 Oxygen Delivery Method Room Air 09/25/25 10:14 BMI result Body Mass Index 44.4 Const General: comfortable and no acute distress Orientation/consciousness: patient oriented x3 HEENT Head: Yes normocephalic Mouth: Normal oral and palatal mucosa present Eyes EOM: EOMs intact bilaterally Neck Neck: Yes supple Resp Auscultation: clear to auscultation bilaterally Cardio Jugular venous distension: no JVD Rate: regular rate GI Palpation (GI): Soft to palpation Auscultation: normal bowel sounds General: Yes no CVA tenderness Back/Spine/Pelvis Back: no CVA tenderness Skin General skin exam: no rashes or lesions noted Neuro General: patient oriented x3 and moves all extremities Extrem General: Yes no pedal edema Results Reviewed Nephrology Results: Hgb, (12.0-16.0) 10.5 g/dl L 09/22/25 WBC, (4.8-10.8) 4.1 X10*3/uL L 09/22/25 Plt Count, (160-400) 208 X10*3/uL 09/22/25 Sodium, (135-145) 142 mmol/L 09/22/25 Potassium, (3.3-5.1) 4.2 mmol/L 09/22/25 Chloride, (96-108) 115 mmol/L H 09/22/25 Carbon Dioxide, (22-29) 21 mmol/L L 09/22/25 BUN, (9-16) 32 mg/dL H 09/22/25 Creatinine, (0.5-1.4) 1.29 mg/dL 09/22/25 Calcium, (8.4-10.2) 9.8 mg/dL 09/22/25 Renal US 06/25/24 Assessment & Plan Assessment & Plan (1) Hypertension: Code(s): I10 - Essential (primary) hypertension Category: Medical Qualifiers: Hypertension type: primary hypertension Qualified Code(s): I10 - Essential (primary) hypertension (2) CKD stage 3a, GFR 45-59 ml/min: Code(s): N18.31 - Chronic kidney disease, stage 3a Category: Medical Plan Lynnette has H/O RACHID most likely due to tubular injury which is resolved. Her urine output is good. She has CKD 3 from vascular disease.I asked her not to take nonsteroidal anti-inflammatories and maintain good hydration. Her blood pressure needs to be maintain a goal. I increased her Spironolactone to 50 mg twice daily. F/U K ordered. I shall continue to optimize her medications to get her blood pressure to goal in her subsequent office visits. Renal USS and Doppler of renal arteries were unremarkable. No other medication changes made. All these have been explained in detail. F/U labs ordered& F/U given Orders: Orders Electrolytes 4 Weeks I10 - Essential (primary) hypertension, N18.31 - Chronic kidney disease, stage 3a Blood Urea Nitrogen 4 Weeks I10 - Essential (primary) hypertension, N18.31 - Chronic kidney disease, stage 3a Creatinine 4 Weeks I10 - Essential (primary) hypertension, N18.31 - Chronic kidney disease, stage 3a Medications: Changed From spironolactone 25 mg PO BID 90 days 180 tabs 3RF To spironolactone 50 mg PO BID 180 tabs 3RF 90 days Coding Level of Care Code Est Pt Level 4 (65368) Diagnoses Primary hypertension I10 Hypertension type: primary hypertension CKD stage 3a, GFR 45-59 ml/min N18.31
== END 2025-09-25 10:40 | disposition home or self-care (01) ==
LOC: HO.HKA 10:03
PROVIDERS: PCP Internal Medicine Medical Oncology; Visit Provider Internal Medicine Nephrology
DX: I10 Essential (primary) hypertension (principal); N18.31 Chronic kidney disease, stage 3a
CPT/HCPCS: 99214

== ENCOUNTER → 2025-09-25 10:02 | Outpatient (BNVA) | payer MEDICARE, MEDICAID, SELFPAY | PROVIDERS: PCP Internal Medicine Medical Oncology; Visit Provider Internal Medicine Nephrology | DX: I12.9 Hypertensive chronic kidney disease with stage 1 through stage 4 chronic kidney disease, or unspecified chronic kidney disease (principal); N18.31 Chronic kidney disease, stage 3a; G47.33 Obstructive sleep apnea (adult) (pediatric); Z99.89 Dependence on other enabling machines and devices; E66.3 Overweight; Z68.41 Body mass index [BMI] 40.0-44.9, adult | CPT/HCPCS: 99212 ==